=== PATIENT | female | born 1965 | race Caucasian/White ===

== ENCOUNTER 2017-03-06 22:15 | Emergency (ER) | payer MEDICARE, OTHER ==
[~2017-03-06] VITALS: Ht 167.6 cm; Wt 50.0 kg
[~2017-03-06 22:15] MED LIST: BENI20TA26 PO; FIORIC PO; FLUO0.05 TOP; GENT0.1C TOP; HYDR-3535 PO; MS C60TA4 PO; NEUR100C PO; PLAV75TA PO; POTA10IN2 PO; ROBA500T PO; SIMV20 PO; TRAZ150T75 PO; WELL150T PO; XANA2TAB PO; ZOFR8TAB PO; ZOLO50TA PO
[2017-03-06 22:20] VITALS: BP 140/77; PULSE 98; RESP 14; TEMP 98.5; O2SAT 94
--- NOTE | 2017-03-06 22:30 | PD ---
Physical Exam Date Seen by Provider: March 06, 2017 Time Seen by Provider: 22:26 Narrative 51 YOWF C/O HEAD INJURY S/P FALL IN SHOWER. ALSO R ELBOW PAIN. NO LOC. TOOK 30MG MORPHINE PRIOR TO ARRIVAL. ON PLAVIX. VSS AWAITING BED PLACEMENT Data Data Last Documented VS Vital Signs Date Time Temp Pulse Resp B/P Pulse Ox O2 Delivery O2 Flow Rate FiO2 03/06/17 22:20 98.5 98 14 140/77 94 Room Air [facility] Medical Record Reviewed: No Supervised Visit with ANNEMARIE: Bert Lopez March 06, 2017 22:30
--- NOTE | 2017-03-06 22:54 | PD ---
HPI Chief Complaint: Fall Time Seen by Provider: 22:35 Travel History International Travel<30 days: No Contact w/Intl Traveler<30days: No Traveled to known affect area: No History of Present Illness HPI This is a 51-year-old female with history of chronic pain, previous right shoulder injury and surgery, who presents after falling in the bathtub/hour. The patient states she was showering when she grabbed onto the shower reginaldo and it let loose. She states she fell striking her right elbow on the toilet. She also reports hitting her head. There is no reported loss of consciousness. She reports head and neck pain and right elbow pain. There are no other injuries or reported pain. The patient does take Plavix. She was initially seen in fast track and sent here for further evaluation secondary to her being on Plavix and her closed head injury. PFSH Past Medical History Hx Anticoagulant Therapy: Yes (PLAVIX) Arthritis: Yes Asthma: No Blood Disorders: No Anxiety: Yes Depression: Yes Heart Rhythm Problems: No Cancer: No Cardiovascular Problems: No High Cholesterol: Yes Chemotherapy: No Chest Pain: Yes (Current especially with deep breath) Congestive Heart Failure: No COPD: No Cerebrovascular Accident: Yes Diabetes: No Diminished Hearing: No Endocrine: No Gastrointestinal Disorders: Yes (Gastritis, and stomach discomfort supposedly caused by blood pressure med) Genitourinary: No Hypertension: Yes (On medication) Immune Disorder: Yes (Lupus, porphyria cuteanous tarda) Implanted Vascular Access Dvce: Yes Medical other: Yes (porphoriacutenous tarda) Musculoskeletal: Yes (Spine and arthritis problems) Neurologic: Yes (Central Tremors) Psychiatric: Yes (anxiety and depression) Reproductive: No Respiratory: No Integumentary: Yes (PORPHYRIA CUTANEATARDA METABOLIC PHOTO SENSATIVITY) Migraines: Yes Radiation Therapy: No Seizures: No Sickle Cell Disease: No Sleep Apnea: No Thyroid Disease: No ?: Not Past Surgical History Abdominal Surgery: Yes (INGUINAL HERNIA REPAIR) AICD: No Arteriovenous Shunt: No Body Medical Devices: shouldder plates and screws along with a hernia mesh Section: Yes Gynecologic Surgery: Yes (HYSTERECTOMY, ) Hysterectomy: Yes Insulin Pump: No Joint Replacement: No Pacemaker: No Other Surgery: Yes (R shoulder ORIF April 03) Social History Alcohol Use: No Tobacco Use: Yes (1/2 PPD) Substance Use: No Allergies-Medications (Allergen,Severity, Reaction): Coded Allergies: Bactrim (Verified Allergy, Severe, SKIN PROBLEMS, 03/06/17) Reported Meds & Prescriptions Reported Meds & Active Scripts Active Reported Trazodone (Trazodone HCl) 150 Mg Tab 150 Mg PO HS Simvastatin 20 Mg Tab 20 Mg PO DAILY Zoloft (Sertraline HCl) 50 Mg Tab 50 Mg PO DAILY Potassium Chloride ER (Potassium Chloride) 10 Meq Cap 10 Meq PO BID Zofran (Ondansetron HCl) 8 Mg Tab 8 Mg PO TID Morphine ER (Morphine Sulfate) 30 Mg Tab 30 Mg PO Q8H Robaxin (Methocarbamol) 500 Mg Tab 500 Mg PO TID Gabapentin 600 Mg Tab 600 Mg PO TID [Lidex] 1 Applic TP DIRECTED [Gentamicin Oint] 1 Applic .XX PRN Plavix (Clopidogrel Bisulfate) 75 Mg Tab 75 Mg PO DAILY Wellbutrin SR 12 HR (Bupropion HCl) 150 Mg Tab 350 Mg PO DAILY Xanax (Alprazolam) 2 Mg Tab 2 Mg PO Q6HR PRN Review of Systems Except as stated in HPI: all other systems reviewed are Neg General / Constitutional: No: Fever, Chills Eyes: No: Blurred Vision, Photophobia HENT: Positive: Headaches (posterior occiput), Neck Pain (bilateral paraspinous pain at C4 5 and 6 level.), No: Vertigo, Lightheadedness, Neck Stiffness Cardiovascular: No: Chest Pain or Discomfort, Palpitations Respiratory: No: Cough, Shortness of Breath Gastrointestinal: No: Nausea, Vomiting Neurologic: No: Weakness, Tremor, Headache, Change in Mentation Physical Exam Narrative GENERAL: Well-nourished, well-developed patient, in no acute respiratory distress. The patient was observed ambulating in the exam room prior to me entering.. SKIN: Focused skin assessment warm/dry. HEAD: Normocephalic. Patient has a cephalhematoma to the posterior occiput. There are no bony deformities. EYES: No injection or drainage. NECK: Supple, trachea midline. Bilateral paraspinous discomfort at the C4, C5's , C6 level. No posterior spinous process pain or deformity. CARDIOVASCULAR: Regular rate and rhythm without murmurs, gallops, or rubs. RESPIRATORY: Breath sounds equal bilaterally. No accessory muscle use. GASTROINTESTINAL: Abdomen soft, non-tender, nondistended. MUSCULOSKELETAL: No cyanosis, or edema. On examination of the patient's right elbow, she has a hematoma/bruise just inferior to the olecranon process. She has good range of motion. Her is no bony deformity. She does have previous scars in her right shoulder from previous surgery. She does have good range of motion in that shoulder and no pain from the fall. BACK: Nontender without obvious deformity. NEUROLOGICAL: Awake and alert. Cranial nerves II through XII intact. Motor grossly within normal limits. Five out of 5 muscle strength in all muscle groups. Normal speech. Data Data Last Documented VS Vital Signs Date Time Temp Pulse Resp B/P Pulse Ox O2 Delivery O2 Flow Rate FiO2 03/06/17 22:20 98.5 98 14 140/[address] Brain W/O Iv Contrast(Rout) (03/06/17 22:48) Ct Cerv Spine W/O Contrast (03/06/17 22:48) Elbow, Limited (Ap&Lat) (03/06/17 22:48) Shoulder, Limited(2vws) (03/06/17 23:03) MDM Medical Decision Making Medical Screen Exam Complete: Yes Emergency Medical Condition: Yes Differential Diagnosis Intracranial hemorrhage versus closed head injury versus concussion versus right elbow fracture Narrative Course 51-year-old female with a history of previous right shoulder injury, presents after falling in the shower. The patient struck her right elbow and head. She also has paraspinous tenderness in C4 through 6 distribution. There is no focal neurologic deficits at this time. CT of the brain shows no evidence of acute intracranial process. CT cervical spine shows degenerative changes with no acute process. Right elbow x-ray shows no acute process. Right shoulder shows no acute fracture or acute process. The patient be discharged. She has a medications for her chronic pain. She is instructed to avoid heavy lifting. She is also instructed to ice the areas that are sore. Diagnosis Primary Impression: Blunt head trauma Additional Impressions: Contusion of right elbow Cervical strain Contusion of right shoulder Additional Instructions: Ice all areas that are sore for 2-3 days. Anti-inflammatories for discomfort. Disposition: 01 DISCHARGE HOME Condition: Stable Matthew Ulloa MD March 06, 2017 22:53
[2017-03-06] MEDS ORDERED: PLAV75TA29 PO (23:00)
[2017-03-06] MEDS ORDERED: ROBA500T PO (23:00)
[2017-03-06] MEDS ORDERED: ZOFR8TAB PO (23:00)
[2017-03-06] MEDS ORDERED: BUPR150CR PO (23:00)
[2017-03-06] MEDS ORDERED: SIMV20TA PO (23:00)
[2017-03-06] MEDS ORDERED: POTA10CA PO (23:00)
[2017-03-06] MEDS ORDERED: LIDEX TP (23:00)
[2017-03-06] MEDS ORDERED: GENTAMICIN OINT (23:00)
[2017-03-06] MEDS ORDERED: TRAZ150T75 PO (23:00)
[2017-03-06] MEDS ORDERED: XANA2TAB2 PO (23:00)
[2017-03-06] MEDS ORDERED: ZOLO50TA PO (23:00)
[2017-03-06] MEDS ORDERED: MORP1TAB25 PO (23:00)
[2017-03-06] MEDS ORDERED: GABA600T PO (23:00)
--- NOTE | 2017-03-06 23:20 | RADRPT ---
EXAM DATE/TIME: 03/06/2017 22:51 [facility] COMPARISON: No previous studies available for comparison. INDICATIONS : Right elbow pain after fall MEDICAL HISTORY : None. SURGICAL HISTORY : None. ENCOUNTER: Initial ACUITY: 1 day PAIN SCORE: 6/10 LOCATION: Right elbow FINDINGS: Two view examination of the right elbow demonstrates no soft tissue swelling, joint effusion, fractur e or dislocation. Bony mineralization is normal. CONCLUSION: Unremarkable exam. Edmond Marin MD on March 06, 2017 at 23:18 Board Certified Radiologist. This report was verified electronically.
--- NOTE | 2017-03-06 23:33 | RADRPT ---
EXAM DATE/TIME: 03/06/2017 23:00 [facility] COMPARISON: No previous studies available for comparison. INDICATIONS : Trauma, fall. RADIATION DOSE: 29.10 CTDIvol (mGy) MEDICAL HISTORY : Hypertension. SURGICAL HISTORY : None. ENCOUNTER: Initial ACUITY: 1 day PAIN SCALE: 5/10 LOCATION: cranial TECHNIQUE: Multiple contiguous axial images were obtained of the head. Using automated exposure control and adj ustment of the mA and/or kV according to patient size, radiation dose was kept as low as reasonably a chievable to obtain optimal diagnostic quality images. FINDINGS: CEREBRUM: The ventricles are normal for age. No evidence of midline shift, mass lesion, hemorrhage or acute in farction. No extra-axial fluid collections are seen. POSTERIOR FOSSA: The cerebellum and brainstem are intact. The 4th ventricle is midline. The cerebellopontine angle i s unremarkable. EXTRACRANIAL: The visualized portion of the orbits is intact. Incidental finding of what appears to be a small oste rose marie in the left ethmoid sinus. Otherwise, the visualized paranasal sinuses are grossly clear. SKULL: The calvaria is intact. No evidence of skull fracture. CONCLUSION: 1. Unremarkable CT scan of the brain. 2. 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 Edmond Marin MD on March 06, 2017 at 23:29 Board Certified Radiologist. This report was verified electronically.
--- NOTE | 2017-03-06 23:37 | RADRPT ---
EXAM DATE/TIME: 03/06/2017 23:00 [facility] COMPARISON: No previous studies available for comparison. INDICATIONS : Trauma, fall. RADIATION DOSE: 19.27 CTDIvol (mGy) MEDICAL HISTORY : Hypertension. SURGICAL HISTORY : None. ENCOUNTER: Initial ACUITY: 1 day PAIN SCALE: 5/10 LOCATION: neck TECHNIQUE: Volumetric scanning of the cervical spine was performed. Multiplanar reconstructions in the sagittal, coronal and oblique axial planes were performed. Using automated exposure control and adjustment o f the mA and/or kV according to patient size, radiation dose was kept as low as reasonably achievable to obtain optimal diagnostic quality images. FINDINGS: VERTEBRAE: Normal vertebral body height. Primary bony degenerative changes, disc degeneration and disc space geetha rowing from C2-C7. No compression fractures are demonstrated. ALIGNMENT: No evidence of subluxation. C2-C3: The bony spinal canal is normal in size. No evidence of disc bulge or herniation. The neural forami na are bilaterally patent. C3-C4: Mild broad-based bulging disc osteophyte complex. Mild narrowing of the right neural foramina. The le ft neural foramina is patent. C4-C5: Mild broad-based bulging. There is narrowing of the right neural foramina due to osteophyte. The left neural foramen is patent. C5-C6: The bony spinal canal is normal in size. No evidence of disc bulge or herniation. The neural forami na are narrowed bilaterally from degenerative changes. C6-C7: The bony spinal canal is normal in size. No evidence of disc bulge or herniation. The neural forami na are bilaterally patent. C7-T1: The bony spinal canal is normal in size. No evidence of disc bulge or herniation. The neural forami na are bilaterally patent. CONCLUSION: 1. No acute bony fracture. 2. Primary bony degenerative changes, disc degeneration and disc space narrowing at multiple levels. Edmond Marin MD on March 06, 2017 at 23:31 Board Certified Radiologist. This report was verified electronically.
--- NOTE | 2017-03-06 23:47 | RADRPT ---
EXAM DATE/TIME: 03/06/2017 23:21 [facility] COMPARISON: No previous studies available for comparison. INDICATIONS : Right shoulder concerns post recent fall. MEDICAL HISTORY : Hypercholesterolemia. Hypertension Lupus. SURGICAL HISTORY : Inguinal hernia repair. Hysterectomy. section. ORIF Right shoulder ENCOUNTER: Initial ACUITY: 1 day PAIN SCORE: 5/10 LOCATION: Right shoulder FINDINGS: Two view examination of the right shoulder demonstrates no evidence of fracture or dislocation. There is evidence of previous internal fixation. The hardware is grossly intact. There is chronic pleural thickening along the right hemithorax. The glenohumeral and acromioclavicular joints are maintained. Bony mineralization is normal. CONCLUSION: No acute fracture or joint dislocation. Edmond Marin MD on March 06, 2017 at 23:44 Board Certified Radiologist. This report was verified electronically.
== END 2017-03-07 01:00 | disposition home or self-care (01) ==
LOC: NEPE 22:15
DX: S09.90XA Unspecified injury of head, initial encounter (principal); S50.01XA Contusion of right elbow, initial encounter; S16.1XXA Strain of muscle, fascia and tendon at neck level, initial encounter; S40.011A Contusion of right shoulder, initial encounter; W18.30XA Fall on same level, unspecified, initial encounter; Z79.01 Long term (current) use of anticoagulants; F32.9 Major depressive disorder, single episode, unspecified; E78.00 Pure hypercholesterolemia, unspecified; Z86.73 Personal history of transient ischemic attack (TIA), and cerebral infarction without residual deficits; I10 Essential (primary) hypertension
CPT/HCPCS: 70450; 72125; 73030; 73070

== ENCOUNTER 2017-05-08 14:53 | Inpatient (IN) | payer MEDICARE, OTHER ==
[2017-05-08] VITALS (9 sets, daily range): BP systolic 170–212; BP diastolic 82–108; PULSE 68–90; RESP 11–20; TEMP 98.2–98.9; O2SAT 98–100
[~2017-05-08] VITALS: Ht 167.6 cm; Wt 59.5 kg
[~2017-05-08 14:53] MED LIST changes: -BENI20TA26 PO; +BUPR150CR PO; -FIORIC PO; -FLUO0.05 TOP; +GABA600T PO; -GENT0.1C TOP; +GENTAMICIN OINT; -HYDR-3535 PO; +LIDEX TP; +MORP1TAB25 PO; -MS C60TA4 PO; -NEUR100C PO; -PLAV75TA PO; +PLAV75TA29 PO; +POTA10CA PO; -POTA10IN2 PO; -SIMV20 PO; +SIMV20TA PO; -WELL150T PO; -XANA2TAB PO; +XANA2TAB2 PO
[2017-05-08] MEDS ORDERED: SODIUM CHLOR 0.9% 1000 ML INJ 1,000 ML IV ONE (14:55)
--- NOTE | 2017-05-08 15:12 | PD ---
HPI Chief Complaint: stroke alert Time Seen by Provider: 14:55 Travel History International Travel<30 days: No Contact w/Intl Traveler<30days: No Traveled to known affect area: No History of Present Illness HPI 52-year-old female with previous history of a stroke, presents to the ER today brought in by EMS for a two-hour history of right facial droop, right sided weakness. She has had history of previous stroke. She currently also complains of a posterior headache. She denies any chest pains or any other issues. Modifying Factors: None Associated Signs & Symptoms: Headache, right sided weakness and right facial droop, stroke alert Risk Factors: Previous stroke PFSH Past Medical History Hx Anticoagulant Therapy: Yes (PLAVIX) Arthritis: Yes Asthma: No Blood Disorders: No Anxiety: Yes Depression: Yes Heart Rhythm Problems: No Cancer: No Cardiovascular Problems: No High Cholesterol: Yes Chemotherapy: No Chest Pain: Yes (Current especially with deep breath) Congestive Heart Failure: No COPD: No Cerebrovascular Accident: Yes Diabetes: No Diminished Hearing: No Endocrine: No Gastrointestinal Disorders: Yes (Gastritis, and stomach discomfort supposedly caused by blood pressure med) Genitourinary: No Hypertension: Yes (On medication) Immune Disorder: Yes (Lupus, porphyria cuteanous tarda) Implanted Vascular Access Dvce: Yes Musculoskeletal: Yes (Spine and arthritis problems) Neurologic: Yes (Central Tremors) Psychiatric: Yes (anxiety and depression) Reproductive: No Respiratory: No Integumentary: Yes (PORPHYRIA CUTANEATARDA METABOLIC PHOTO SENSATIVITY) Migraines: Yes Radiation Therapy: No Seizures: No Sickle Cell Disease: No Sleep Apnea: No Thyroid Disease: No Past Surgical History Abdominal Surgery: Yes (INGUINAL HERNIA REPAIR) AICD: No Arteriovenous Shunt: No Body Medical Devices: shouldder plates and screws along with a hernia mesh Section: Yes Gynecologic Surgery: Yes (HYSTERECTOMY, ) Hysterectomy: Yes Insulin Pump: No Joint Replacement: No Pacemaker: No Other Surgery: Yes (R shoulder ORIF April 03) Social History Alcohol Use: No Tobacco Use: Yes (/2 PPD) Substance Use: No Allergies-Medications (Allergen,Severity, Reaction): Coded Allergies: Bactrim (Verified Allergy, Severe, SKIN PROBLEMS, 03/06/17) Reported Meds & Prescriptions Reported Meds & Active Scripts Active Reported Trazodone (Trazodone HCl) 150 Mg Tab 150 Mg PO HS Simvastatin 20 Mg Tab 20 Mg PO DAILY Zoloft (Sertraline HCl) 50 Mg Tab 50 Mg PO DAILY Potassium Chloride ER (Potassium Chloride) 10 Meq Cap 10 Meq PO BID Zofran (Ondansetron HCl) 8 Mg Tab 8 Mg PO TID Morphine ER (Morphine Sulfate) 30 Mg Tab 30 Mg PO Q8H Robaxin (Methocarbamol) 500 Mg Tab 500 Mg PO TID Gabapentin 600 Mg Tab 600 Mg PO TID [Lidex] 1 Applic TP DIRECTED [Gentamicin Oint] 1 Applic .XX PRN Plavix (Clopidogrel Bisulfate) 75 Mg Tab 75 Mg PO DAILY Wellbutrin SR 12 HR (Bupropion HCl) 150 Mg Tab 350 Mg PO DAILY Xanax (Alprazolam) 2 Mg Tab 2 Mg PO Q6HR PRN Review of Systems Except as stated in HPI: all other systems reviewed are Neg Physical Exam Narrative GENERAL: Well-developed middle age white female patient currently in moderate distress. Awake and oriented 3. SKIN: Focused skin assessment warm/dry. HEAD: Atraumatic. Normocephalic. EYES: Pupils equal and round. No scleral icterus. No injection or drainage. ENT: No nasal bleeding or discharge. Mucous membranes pink and moist. NECK: Trachea midline. No JVD. CARDIOVASCULAR: Regular rate and rhythm. No murmur appreciated. RESPIRATORY: No accessory muscle use. Clear to auscultation. Breath sounds equal bilaterally. GASTROINTESTINAL: Abdomen soft, mild left upper quadrant tenderness without guarding or rebound, nondistended. Hepatic and splenic margins not palpable. MUSCULOSKELETAL: No obvious deformities. No clubbing. No cyanosis. No edema. NEUROLOGICAL: Awake and alert. Right facial droop, right sided weakness with right pronator drift. Normal speech. PSYCHIATRIC: Appropriate mood and affect; insight and judgment normal. Data Data Last Documented VS Vital Signs Date Time Temp Pulse Resp B/P Pulse Ox O2 Delivery O2 Flow Rate FiO2 05/08/17 15:43 75 20 173/82 05/08/17 14:53 98.2 98 05/08/17 14:45 Nasal Cannula 2.00 Orders Diet Npo (05/08/17 Dinner) Activity Bed Rest (05/08/17 ) Electrocardiogram (05/08/17 ) I-Stat Creatinine (05/08/17 14:55) I-Stat Profile (05/08/17 14:55) Prothrombin Time / Inr (Pt) (05/08/17 14:55) Act Partial Throm Time (Ptt) (05/08/17 14:55) Complete Blood Count With Diff (05/08/17 14:55) Fibrinogen (05/08/17 14:55) Creatine Kinase (Cpk) (05/08/17 14:55) Troponin I (05/08/17 14:55) Ua Includes Microscopic (05/08/17 14:55) Drug Screen, Random Urine (05/08/17 14:55) Type And Screen (05/08/17 14:55) Ct Brain W/O Iv Contrast(Rout) (05/08/17 ) Consult Neurology (05/08/17 ) Blood Glucose (05/08/17 14:55) Ecg Monitoring (05/08/17 14:55) Neuro Checks Q2HX12,Q4H (05/08/17 14:55) Nursing Bedside Swallow Assess .ONCE (05/08/17 14:55) Iv Access Insert/Monitor (05/08/17 14:55) NPO (05/08/17 14:55) Oximetry (05/08/17 14:55) Oxygen Administration (05/08/17 14:55) Sodium Chlor 0.9% 1000 Ml Inj (Ns 1000 M (05/08/17 14:55) Resp Oxygen Alexander C Titrat 1-4 L (05/08/17 14:55) Cath For Specimen (05/08/17 14:55) Cta Brain W Iv Contrast W 3d (05/08/17 14:55) Iodixanol 320 Inj (Rad Ct) (Visipaque 32 (05/08/17 15:19) Westergren Sedimentation Rate (05/08/17 15:23) Rapid Plasma Regin (Rpr) W Ttr (05/08/17 15:23) Anna Screen (05/08/17 15:23) Thyroid Stimulating Hormone (05/08/17 15:23) Free Thyroxine (T4) (05/08/17 15:23) Vitamin B1 (Thiamine) (05/08/17 15:23) Vitamin B12 (05/08/17 15:23) Methylmalonic Acid (Mma) (05/08/17 15:23) Mri Brain W&W/O Contrast (05/08/17:) Echo 2d Comp With Doppler (05/08/17:) Holter Monitor Recording (05/08/17) Surgical Services Tech / Telemetry CHARLES.Q8H (05/08/17) Sodium Chlor 0.9% 1000 Ml Inj (Ns 1000 M (05/08/17:) Lipid Profile (05/08/17) Drug Screen, Random Urine (05/08/17:) Scd&Teds Bilateral/Knee High CHARLES.QSHIFT (05/08/17) Beta Hcg (Quant/Titer) (05/08/17) Anti-Thrombin, Functional (05/08/17) Cardiolipin Abs Igg,Igm,Iga (05/08/17:) Protein C Activity (05/08/17) Protein S Activity (05/08/17:) Factor V (5) Mutation (Leiden) (05/08/17:) Prothrombin [id number] Mutation (05/08/17:) Lupus Anticoagulant Drvvt (05/08/17) Factor Viii (8) Activity Ref (05/08/17:) Folate, Serum (05/08/17:) ^ Call Pharmacy (05/08/17:) Nih Stroke Scale - Nihss .ONCE (05/08/17 15:32) Urinary Catheter Management CHARLES.Q8H (05/08/17:32) Urinary Catheter Insert/Apply (05/08/17:) Anticoagulant Alert (05/08/17:) ^ Post Infusion Restrictions (05/08/17:32) ^ Medication Alert (05/08/17:32) Vital Signs (Adult) .As directed (05/08/17:) Notify Dr: Blood Pressure (05/08/17:32) ^ Medication Alert (05/08/17:32) Alteplase Bolus (Activase Bolus) (05/08/17 15:45) Alteplase Drip (Activase Drip) (05/08/17 15:45) Sodium Chloride 0.9% Inj (Ns Inj) (05/08/17 15:45) Misc Nursing Information (05/08/17 15:45) Resp Oxygen Alexander C Titrat 1-4 L (05/08/17 ) Ct Brain W/O Iv Contrast(Rout) (05/09/17 ) Labetalol Inj (Trandate Inj) (05/08/17 15:45) Ct Abd/Pel W/O Iv Contrast (05/08/17 15:46) Lipase (05/08/17 15:46) Labs Laboratory Tests Test 05/08/17 14:50 White Blood Count 3.1 TH/MM3 Red Blood Count 3.45 MIL/MM3 Hemoglobin 7.5 GM/DL Bedside Hemoglobin 8.2 G/DL Hematocrit 24.4 % Bedside Hematocrit 24.0 % Mean Corpuscular Volume 70.7 FL Mean Corpuscular Hemoglobin 21.7 PG Mean Corpuscular Hemoglobin 30.6 % Concent Red Cell Distribution Width 19.3 % Platelet Count 347 TH/MM3 Mean Platelet Volume 7.5 FL Neutrophils (%) (Auto) 58.5 % Lymphocytes (%) (Auto) 34.2 % Monocytes (%) (Auto) 6.3 % Eosinophils (%) (Auto) 0.6 % Basophils (%) (Auto) 0.4 % Neutrophils # (Auto) 1.8 TH/MM3 Lymphocytes # (Auto) 1.1 TH/MM3 Monocytes # (Auto) 0.2 TH/MM3 Eosinophils # (Auto) 0.0 TH/MM3 Basophils # (Auto) 0.0 TH/MM3 CBC Comment DIFF FINAL Differential Comment Prothrombin Time 10.7 SEC Prothromb Time International 1.0 RATIO Ratio Activated Partial 28.7 SEC Thromboplast Time Fibrinogen 297 mg/dL Bedside Sodium 139 MMOL/L Bedside Potassium 4.2 MMOL/L Bedside Chloride 103 MMOL/L Bedside Blood Urea Nitrogen 8 MG/DL Bedside Creatinine 0.6 MG/DL Bedside Glucose 81 MG/DL Blood Type O POSITIVE Blood Bank Comment [facility] Medical Screen Exam Complete: Yes Emergency Medical Condition: Yes Medical Record Reviewed: Yes Differential Diagnosis Stroke versus ICH versus metabolic issues Narrative Course Initial CAT scan is negative. EKG did not show any signs of dysrhythmias. Case was seen by Dr. Culver in the ER and he would like TPA to be initiated. Patient has been having a 1 week history of left sided abdominal pain and it is probably tender. Hemoccult was done which was negative. CAT scan was also ordered to rule out other acute processes. Plan to admit for further treatment. We have discussed the issue with Dr. Culver and he would like the CAT scan to be done once TPA initiated due to timely need of TPA. Case is discussed with Dr. Figueroa for admission to ICU. It was noted that her hemoglobin is low and TPA was stopped momentarily. Case was discussed with Dr. Culver who after evaluating the fact that the patient is still having significant neurological symptoms, wants me to continue with TPA and to take the patient to CAT scan. Aggregate critical care time was 25 minutes. Time to perform other separately billable procedures was not included in the critical care time. My time did not include minutes spent treating any other patients simultaneously or on activities that did not directly contribute to the patient's treatment. The services I provided to this patient were to treat and/or prevent clinically significant deterioration that could result in: Stroke alert, ICH, I provided critical care services requiring my management, as noted below: Chart data review, documentation time, medication orders and management, vital sign assessments/reviewing monitor data, ordering and reviewing lab tests, ordering and interpreting/reviewing x-rays and diagnostic studies, care of the patient and discussion of the patient with the admitting physicians. Stroke Alert NIHSS NIH Stroke Scale Result: 7 NIHSS Time Completed: 15:30 HemaPrompt Point of Care Internal Pos. & Neg. Controls: Passed Fecal Specimen Occult Blood: Negative Diagnosis Diagnosis: Primary Impression: Stroke Admitting Physician Requests: Admit Milton Garcia MD May 08, 2017 15:12
[2017-05-08] MEDS ORDERED: IODIXANOL 320 MG/ML 50 ML VIAL (for Rad CT) IV ONE (15:19)
[2017-05-08] MEDS ORDERED: SODIUM CHLOR 0.9% 1000 ML INJ 1,000 ML IV SCH (15:23)
--- NOTE | 2017-05-08 15:27 | RADRPT ---
EXAM DATE/TIME: 05/08/2017 14:57 [facility] COMPARISON: CT BRAIN W/O CONTRAST, March 06, 2017, 23:00. INDICATIONS : Stroke alert, right sided weakness and facial droop. RADIATION DOSE: 56.23 CTDIvol (mGy) This report was called by Ilya ANAYA at 1515 MEDICAL HISTORY : Cerebrovascular disease. SURGICAL HISTORY : None. ENCOUNTER: Initial ACUITY: 1 day PAIN SCALE: 3/10 LOCATION: cranial TECHNIQUE: Multiple contiguous axial images were obtained of the head. Using automated exposure control and adj ustment of the mA and/or kV according to patient size, radiation dose was kept as low as reasonably a chievable to obtain optimal diagnostic quality images. DICOM format image data is available electro nically for review and comparison. FINDINGS: CEREBRUM: The ventricles are normal for age. No evidence of midline shift, mass lesion, hemorrhage or acute in farction. No extra-axial fluid collections are seen. POSTERIOR FOSSA: The cerebellum and brainstem are intact. The 4th ventricle is midline. The cerebellopontine angle i s unremarkable. EXTRACRANIAL: The visualized portion of the orbits is intact. SKULL: The calvaria is intact. No evidence of skull fracture. Small osteoma again noted in the left ethmoid sinus. CONCLUSION: 1. No acute intracranial abnormality. Nain Chen MD on May 08, 2017 at 15:22 Board Certified Radiologist. This report was verified electronically.
[2017-05-08 15:34] LABS: I-STAT POTASSIUM 4.2 MMOL/L (3.5-4.9)
[2017-05-08 15:44] LABS: AUTOMATED NEUTROPHIL # 1.8 TH/MM3 (1.8-7.7); BASOPHIL % 0.4 % (0.0-2.0); EOSINOPHIL % 0.6 % (0.0-4.0); HEMATOCRIT 24.4 % (35.0-46.0); HEMO FLAGS DIFF FINAL; LYMPH % 34.2 % (9.0-44.0); LYMPHOCYTE # 1.1 TH/MM3 (1.0-4.8); MEAN CELL VOLUME 70.7 FL (80.0-100.0); MEAN CORPUSCULAR HEMOGLOBIN 21.7 PG (27.0-34.0); MEAN CORPUSCULAR HGB CONC 30.6 % (32.0-36.0); MONO % 6.3 % (0.0-8.0); NEUT % 58.5 % (16.0-70.0); PLATELET COUNT 347 TH/MM3 (150-450); RED BLOOD COUNT 3.45 MIL/MM3 (4.00-5.30); RED CELL DISTRIBUTION WIDTH 19.3 % (11.6-17.2); WHITE BLOOD COUNT 3.1 TH/MM3 (4.0-11.0)
[2017-05-08] MEDS ORDERED: LABETALOL HCL 100 MG/20 ML VIAL IV PUSH ONE (15:45)
[2017-05-08] MEDS ORDERED: ALTEPLASE DRIP IV ONE (15:45)
[2017-05-08] MEDS ORDERED: ALTEPLASE BOLUS 9 MG/9 ML SYR IV ONE (15:45)
[2017-05-08] MEDS ORDERED: SODIUM CHLORIDE 0.9% 50 ML BAG IVF ONE (15:45)
[2017-05-08] MEDS ORDERED: MISCELLANEOUS NURSING INFORMATION XX PRN (15:45)
[2017-05-08 15:46] LABS: APTT (PATIENT) 28.7 SEC (24.3-30.1); PROTHROMBIN TIME - PATIENT 10.7 SEC (9.8-11.6)
--- NOTE | 2017-05-08 15:49 | RADRPT ---
EXAM DATE/TIME: 05/08/2017 15:12 [facility] COMPARISON: No previous studies available for comparison. INDICATIONS : Stroke alert, right sided weakness and facial droop. IV CONTRAST: 50 cc Visipaque (iodixanol) IV RADIATION DOSE: 13.46 CTDIvol (mGy) MEDICAL HISTORY : Cerebrovascular disease. Lupus. SURGICAL HISTORY : None. ENCOUNTER: Initial ACUITY: 1 day PAIN SCALE: 3/10 LOCATION: cranial TECHNIQUE: Volumetric scanning was performed using a multi-row detector CT scanner. The data was post processed with a variety of visualization algorithms including full volume maximum intensity projection, multi -planar sliding thin slab reformation, curved planar reformation, and surface rendering techniques. Using automated exposure control and adjustment of the mA and/or kV according to patient size, radiat ion dose was kept as low as reasonably achievable to obtain optimal diagnostic quality images. DICO M format image data is available electronically for review and comparison. FINDINGS: There is excellent visualization of the major intracranial arteries out to the second-order branch ve ssels. There is no evidence for aneurysm, vessel truncation or stenosis, and no evidence for vascula r malformation. CONCLUSION: 1. No evidence for large vessel occlusion or significant aneurysm/vascular malformation. Nain Chen MD on May 08, 2017 at 15:42 Board Certified Radiologist. This report was verified electronically.
--- NOTE | 2017-05-08 16:00 | MB ---
cc: DESIREE JIMENEZ DATE OF CONSULTATION 05/08/17 HISTORY OF PRESENT ILLNESS A 52-year-old woman with a history of hypertension, hypercholesterolemia, ME, a stroke in May 2014 with right-sided weakness for which she almost fully recovered though she does walk with a cane. She takes Plavix. She has porphyria. Says she has lupus although her last lupus tests were negative by Dr. Gutierres. She does not take any medicines due to porphyria. About 2 hours ago she had gotten up out of bed to go to the bathroom and noticed that she was weak on the right side, could not make it to the bathroom, peed on herself, noticed her speech was slurred and came in the hospital. She has not been seen by neurology here before. MEDICATIONS At home: 1. Xanax. 2. Wellbutrin 350 a day. 3. Plavix. 4. Gabapentin. 5. Robaxin. 6. Morphine ER 30 milligrams q. 8 hours. 7. Zofran. 8. Zoloft. 9. Simvastatin. 10. Trazodone. ALLERGIES ALLERGIC TO BACTRIM. PAST MEDICAL HISTORY As above including porphyria, migraines, tremors, anxiety, depression, spine pain, gastritis. REVIEW OF SYSTEMS She denied any chest pain at this time. PHYSICAL EXAMINATION VITAL SIGNS: I do not have the vitals right here in CAT scan. NECK: There are no carotid bruits. HEART: Regular rhythm. I did not detect a murmur. NEURO: The pupils are equal, visual story are full. Extraocular movements intact without nystagmus. Face no major asymmetry but her speech is slurred. I could not say that one side of her face is more droopy than the other. Tongue was midline. She is definitely weak on just the 1/5 in the right hand and her triceps on the right side is a 4-/5 with a positive right drift. Normal strength in the left upper and left lower extremity. Right lower extremity about 5-/5 weakness. At the right tibialis anterior she has some decreased range of motion there, about a 4+/5. Toes upgoing on the right, downgoing on the left. Pinprick is diminished in the right hand, otherwise, intact throughout. Speech is fluent. She is not aphasic but her speech is slurred. LABORATORY DATA CBC on 05/02/2016 showed a mild anemia only. Sed rate has been normal in the past. Hepatitis C has been positive, GIOVANNY was 1:320 in 2012. Her heparin-induced platelet antibody rapid was positive, although the TWIN was negative. UA has been negative in the past. Today's labs are pending but a creatinine in 2015, a year ago, was normal. LDL was 104 back then. Blood gases showed a pCO2 of 48 in 2006. She had a cervical spine MRI back in 2005. She had a cervical spine CT in February of this year was negative. She had a CAT scan of the brain in February of this year was normal. CT scan of brain today preliminary is negative. CTA of the neck and [place] also looks normal today. IMPRESSION It looks like she has had an acute infarct. The NIH stroke scale is 7. I would recommend TPA at this time. Will see if we get any of her labs back. MD KEVIN Abbott/JESSA /3:23 PM /3:44 PM
[2017-05-08 17:01] LABS: BETA HCG QUANT LESS THAN 1 MIU/ML (0-5); FREE T4 1.18 NG/DL (0.76-1.46); HDL CHOLESTEROL 23.7 MG/DL (40.0-60.0); LDL CHOLESTEROL 81 MG/DL (0-99)
[2017-05-08] MEDS ORDERED: MAGNESIUM SULFATE INJ 2 GM in SODIUM CHLORIDE 0.9% INJ 96 ML IV PRN (17:30)
[2017-05-08] MEDS ORDERED: POTASSIUM CHLORIDE 25 MEQ EFFERVESCENT TAB PO PRN (17:30)
[2017-05-08] MEDS ORDERED: BISACODYL 10 MG SUPP RECTAL PRN (17:30)
[2017-05-08] MEDS ORDERED: POTASSIUM PHOSPHATE MONOBASIC 500 MG TAB PO/TUBE PRN (17:30)
[2017-05-08] MEDS ORDERED: LACTULOSE SYRUP 20 GM/30 ML CUP PO PRN (17:30)
[2017-05-08] MEDS ORDERED: SODIUM PHOSPHATE INJ 30 MMOL in SODIUM CHLOR 0.9% 250 ML INJ 240 ML IV PRN (17:30)
[2017-05-08] MEDS ORDERED: SODIUM CHLORIDE 0.9% FLUSH 10 ML FLUSH IV FLUSH PRN (17:30)
[2017-05-08] MEDS ORDERED: MAGNESIUM HYDROXIDE SUSP 30 ML CUP PO PRN (17:30)
[2017-05-08] MEDS ORDERED: POTASSIUM CHLOR 40 MEQ PREMIX 100 ML IV PRN ×2 (17:30)
[2017-05-08] MEDS ORDERED: POTASSIUM PHOSPHATE INJ 30 MMOL in SODIUM CHLOR 0.9% 250 ML INJ 250 ML IV PRN (17:30)
[2017-05-08] MEDS ORDERED: MAGNESIUM OXIDE 400 MG TAB PO PRN (17:30)
[2017-05-08] MEDS ORDERED: MAGNESIUM SULFATE INJ 4 GM in SODIUM CHLORIDE 0.9% INJ 92 ML IV PRN (17:30)
[2017-05-08] MEDS ORDERED: CHLORHEXIDINE GLUCONATE 2 % 1 PACK (2 CLOTHS) TOP PRN (17:30)
[2017-05-08] MEDS ORDERED: POTASSIUM CHLOR 20 MEQ PREMIX 100 ML IV PRN ×2 (17:30)
[2017-05-08] MEDS ORDERED: SENNOSIDES 8.6 MG TAB PO PRN (17:30)
[2017-05-08] MEDS ORDERED: POTASSIUM PHOSPHATE MONOBASIC 500 MG TAB PO PRN (17:30)
[2017-05-08] MEDS ORDERED: MISCELLANEOUS NURSING INFORMATION XX SCH (17:30)
--- NOTE | 2017-05-08 17:35 | RADRPT ---
EXAM DATE/TIME: 05/08/2017 17:17 [facility] COMPARISON: No previous studies available for comparison. INDICATIONS : Drop in hemoglobin. Evaluate for internal bleeding. ORAL CONTRAST: No oral contrast ingested. RADIATION DOSE: 9.96 CTDIvol (mGy) MEDICAL HISTORY : Cerebrovascular disease. Hypertension. Lupus. SURGICAL HISTORY : Hysterectomy. ENCOUNTER: Initial ACUITY: 1 day PAIN SCALE: 4/10 LOCATION: abdomen TECHNIQUE: Volumetric scanning of the abdomen and pelvis was performed. Using automated exposure control and ad justment of the mA and/or kV according to patient size, radiation dose was kept as low as reasonably achievable to obtain optimal diagnostic quality images. DICOM format image data is available electro nically for review and comparison. FINDINGS: CT Abdomen: The liver, spleen, pancreas, kidneys, adrenals are unremarkable. There is no evidence for any appreciable pathological adenopathy, free fluid, or bowel obstruction. There is contrast in the renal collecting systems and bladder from the patient's earlier CT angiogram. Slight pericardial eff usion is seen with maximum thickness of 1.3 cm. Tiny bilateral pleural effusions are present with sli ght left lung base consolidation. CT pelvis: There is no evidence for mass, abscess formation, or any significant adenopathy within the pelvis. There is slight fluid in the cul-de-sac. CONCLUSION: 1. Tiny bilateral pleural effusions and left lung base consolidation. 2. Slight fluid in the cul-de-sac and small pericardial effusion. Andrew Phipps MD on May 08, 2017 at 17:28 Board Certified Radiologist. This report was verified electronically.
[2017-05-08] MEDS: SODIUM CHLOR 0.9% 1000 ML INJ 1,000 ML IV SCH (18:00)
--- NOTE | 2017-05-08 18:00 | HHI.HP ---
HPI Service Critical Care Medicine Primary Care Physician Unknown Admission Diagnosis stroke alert/TPA Diagnosis: Travel History International Travel<30 Days: No Contact w/Intl Traveler <30 Da: No Traveled to Known Affected Are: No History of Present Illness This is a 52-year-old female with a prior history of CVA that presented to the ED . It was reported that the patient had a two-hour history of right facial droop, right sided weakness and a headache. The patient also complained of dysarthria and incontinence. Her past medical history is significant for a previous CVA in 2003 with resultant only deficit of right-sided weakness requiring ambulation assistance utilizing a cane . A stroke alert was activated. The patient was seen by Dr. Culver NIH stroke score of 7. Imaging studies were performed -CT angiogram, and CT of the brain results and negative. TPA was initiated. Per ED physician, the patient had also complained of left lower quadrant pain, prior to initiation of tPA Hemoccult was obtained which resulted negative. Plans for CT of the abdomen and pelvis post TPA is pending. Critical care medicine was consulted. Upon my arrival the patient was receiving D5 half-normal saline, alert and oriented 3. No change from initial neurological exam, significant motor weakness right upper and lower extremity, with pronator drift right upper extremity, and complaints of a headache posterior, throbbing intermittently with a VAS score of 8/10. No complaints of photophobia, diplopia, visual story intact. Modifying Factors: None Associated Signs & Symptoms: Headache, right sided weakness and right facial droop, stroke alert Risk Factors: Previous stroke History PFSH Past Medical History Hx Anticoagulant Therapy: Yes (PLAVIX) Arthritis: Yes Asthma: No Blood Disorders: No Anxiety: Yes Depression: Yes Heart Rhythm Problems: No Cancer: No Cardiovascular Problems: No High Cholesterol: Yes Chemotherapy: No Chest Pain: Yes (Current especially with deep breath) Congestive Heart Failure: No COPD: No Cerebrovascular Accident: Yes Diabetes: No Diminished Hearing: No Endocrine: No Gastrointestinal Disorders: Yes (Gastritis, and stomach discomfort supposedly caused by blood pressure med) Genitourinary: No Hypertension: Yes (On medication) Immune Disorder: Yes (Lupus, porphyria cuteanous tarda) Implanted Vascular Access Dvce: Yes Musculoskeletal: Yes (Spine and arthritis problems) Neurologic: Yes (Central Tremors) Psychiatric: Yes (anxiety and depression) Reproductive: No Respiratory: No Integumentary: Yes (PORPHYRIA CUTANEATARDA METABOLIC PHOTO SENSATIVITY) Migraines: Yes Radiation Therapy: No Seizures: No Sickle Cell Disease: No Sleep Apnea: No Thyroid Disease: No Past Surgical History Abdominal Surgery: Yes (INGUINAL HERNIA REPAIR) AICD: No Arteriovenous Shunt: No Body Medical Devices: shouldder plates and screws along with a hernia mesh Section: Yes Gynecologic Surgery: Yes (HYSTERECTOMY, ) Hysterectomy: Yes Insulin Pump: No Joint Replacement: No Pacemaker: No Other Surgery: Yes (R shoulder ORIF April 03) Social History Alcohol Use: No Tobacco Use: Yes (10/27 PPD) Substance Use: No Allergies-Medications Allergies-Medications (Allergen,Severity, Reaction): Coded Allergies: Bactrim (Verified Allergy, Severe, SKIN PROBLEMS, 03/06/17) Reported Meds & Prescriptions Reported Meds & Active Scripts Active Reported Trazodone (Trazodone HCl) 150 Mg Tab 150 Mg PO HS Simvastatin 20 Mg Tab 20 Mg PO DAILY Zoloft (Sertraline HCl) 50 Mg Tab 50 Mg PO DAILY Potassium Chloride ER (Potassium Chloride) 10 Meq Cap 10 Meq PO BID Zofran (Ondansetron HCl) 8 Mg Tab 8 Mg PO TID Morphine ER (Morphine Sulfate) 30 Mg Tab 30 Mg PO Q8H Robaxin (Methocarbamol) 500 Mg Tab 500 Mg PO TID Gabapentin 600 Mg Tab 600 Mg PO TID [Lidex] 1 Applic TP DIRECTED [Gentamicin Oint] 1 Applic .XX PRN Plavix (Clopidogrel Bisulfate) 75 Mg Tab 75 Mg PO DAILY Wellbutrin SR 12 HR (Bupropion HCl) 150 Mg Tab 350 Mg PO DAILY Xanax (Alprazolam) 2 Mg Tab 2 Mg PO Q6HR PRN ROS Review of Systems Except as stated in HPI: all other systems reviewed are Neg Past Family Social History Allergies: Coded Allergies: Bactrim (Verified Allergy, Severe, SKIN PROBLEMS, 03/06/17) Reported Medications see MAR Active Ordered Medications see MAR Family History Unable to obtain at this time secondary to patient's clinical condition with severe headache . Social History Patient smokes a half a pack a day, denies EtOH and illicit drug use. Patient is . Physical Exam Vital Signs Vital Signs Date Time Temp Pulse Resp B/P Pulse Ox O2 Delivery O2 Flow Rate FiO2 05/08/17 16:23 78 20 173/83 05/08/17 16:02 Nasal Cannula 2 05/08/17 16:02 100 05/08/17 15:43 75 20 173/82 05/08/17 15:15 76 20 202/108 05/08/17 14:53 98.2 90 20 212/108 98 05/08/17 14:45 100 Nasal Cannula 2.00 Physical Exam BP 176/84 Pulse 70 O2 sat 100% on 2 L GENERAL: Thin cooperative female patient in moderate distress with complaints of headache SKIN: Warm and dry. HEAD: Atraumatic. Normocephalic. EYES: Pupils equal and round, 3 mm and brisk. No scleral icterus. No injection or drainage. ENT: No nasal bleeding or discharge. Mucous membranes pink and moist. Nasal cannula NECK: Trachea midline. No JVD. CARDIOVASCULAR: Normal rate, regular rhythm. Telemetry normal sinus RESPIRATORY: No accessory muscle use. Clear to auscultation. Breath sounds equal bilaterally. GASTROINTESTINAL: Abdomen soft, non-tender, nondistended. No guarding. MUSCULOSKELETAL: Extremities without clubbing, cyanosis, or edema. No obvious deformities. NEUROLOGICAL: Awake and alert. RASS 0. No gross focal/sensory deficits. Follows commands in all 4 extremities. Right upper extremity motor strength 1/5, right lower extremity motor strength 3/5. Left upper and lower extremities 5/5, slight right facial droop. Laboratory Laboratory Tests Test 05/08/17 14:50 White Blood Count 3.1 Red Blood Count 3.45 Hemoglobin 7.5 Bedside Hemoglobin 8.2 Hematocrit 24.4 Bedside Hematocrit 24.0 Mean Corpuscular Volume 70.7 Mean Corpuscular Hemoglobin 21.7 Mean Corpuscular Hemoglobin 30.6 Concent Red Cell Distribution Width 19.3 Platelet Count 347 Mean Platelet Volume 7.5 Neutrophils (%) (Auto) 58.5 Lymphocytes (%) (Auto) 34.2 Monocytes (%) (Auto) 6.3 Eosinophils (%) (Auto) 0.6 Basophils (%) (Auto) 0.4 Neutrophils # (Auto) 1.8 Lymphocytes # (Auto) 1.1 Monocytes # (Auto) 0.2 Eosinophils # (Auto) 0.0 Basophils # (Auto) 0.0 CBC Comment DIFF FINAL Differential Comment Erythrocyte Sedimentation Rate 43 Prothrombin Time 10.7 Prothromb Time International 1.0 Ratio Activated Partial 28.7 Thromboplast Time Fibrinogen 297 Bedside Sodium 139 Bedside Potassium 4.2 Bedside Chloride 103 Bedside Blood Urea Nitrogen 8 Bedside Creatinine 0.6 Bedside Glucose 81 Total Creatine Kinase 24 Troponin I 0.13 Triglycerides Level 100 Cholesterol Level 125 LDL Cholesterol 81 HDL Cholesterol 23.7 Cholesterol/HDL Ratio 5.27 Vitamin B12 Level 174 Folate 10.4 Free Thyroxine 1.18 Thyroid Stimulating Hormone 2.130 3rd Gen Human Chorionic Gonadotropin, LESS THAN 1 Quant Blood Type O POSITIVE Antibody Screen POSITIVE Blood Bank Comment Result Diagram: 05/08/17 1450 Imaging Last Impressions Head CTA 05/08/17 1455 Signed Impressions: Service Date/Time: Monday, May 08, 2017 15:12 - CONCLUSION: 1. No evidence for large vessel occlusion or significant aneurysm/vascular malformation. Nain Chen MD Head CT 05/08/17 0000 Signed Impressions: Service Date/Time: Monday, May 08, 2017 14:57 - CONCLUSION: 1. No acute intracranial abnormality. Nain Chen MD Septic Shock Reassessment Heart: Regular rate and rhythm Lungs: Clear Skin: Warm Peripheral Pulses: Bounding Right Radial Bounding Left Radial Bounding Right Dorsalis Pedis Bounding Left Dorsalis Pedis Capillary Refill: Brisk Assessment and Plan Assessment and Plan Assessment 1. Acute CVA 2. History of CVA (2003) 3. Hypertension 4. Hypercholesterolemia 5. Hepatitis C 6. Porphyria cutanea tarda 7. Anxiety disorder 8. Depression 9. Chronic back pain syndrome 10. History of migraine 11. History of gastritis 12. Incontinence 2/2 CVA 13. Tobacco abuse Plan Neurologic: -05/08 Status post TPA -Neurology following-Dr. Culver -Repeat CT in a.m. defer to neurology recommendations -Continue post TPA protocol in ICU -Neurochecks per ICU protocol -Avoid sedative type medications -Tylenol 650 mg every 6 hours when necessary for pain -Will resume Gabapentin, Morphine extended release, Zoloft, Xanax and Wellbutrin , post TPA protocol( post 24-hour) when clinically indicated Respiratory: -Maintain O2 sat greater than 92%, O2 at 2 L nasal cannula -Patient counseled on smoking cessation -Consider nicotine patch in a.m. Cardiovascular: -Maintain MAP > 65 mmHG -Resume home medications-Plavix and simvastatin when patient is able to resume by mouth diet Renal: -Maintain Ruelas catheter at this time secondary to urinary incontinence -- Strict I/Os FEN/GI: -Maintain NPO status at this time -Protonix GI prophylaxis -Zofran for nausea -Bowel regimen - F/U CT abdomen and pelvis Heme/ID: -Obtain cultures if clinically indicated Endocrine: Glucose monitoring every 6 hours. Low dose regimen -- SSI Prophylaxis: GI Prophylaxis Protonix DVT Prophylaxis -- SCDs No pharmacological prophylaxis at this time in the setting of TPA administration Lines: PIVs 2. Central line if indicated Dispo: Level 3- Code Status Full Discussed Condition With and ed RN at bedside Cherrie More MD May 08, 2017 18:00
[2017-05-08 18:12] LABS: BLOOD, URINE MOD (NEG); GLUCOSE,URINE NEG (NEG); KETONE, URINE NEG (NEG); NITRITE,URINE NEG (NEG); PH, URINE 6.5 (5.0-8.5); URINE COLOR YELLOW (YELLW/STRAW)
[2017-05-08 18:33] LABS: AMPHETAMINE, URINE NEG (NEG); BARBITURATES, URINE NEG (NEG); COCAINE, URINE NEG (NEG)
--- NOTE | 2017-05-08 18:38 | RADRPT ---
EXAM DATE/TIME: 05/08/2017 15:03 [facility] COMPARISON: No previous studies available for comparison. INDICATIONS : Stroke alert, right sided weakness along with facial droop. IV CONTRAST: 50 cc Visipaque (iodixanol) IV ; Cumulative dose for multiple exams. RADIATION DOSE: 13.46 CTDIvol (mGy) ; Combined studies MEDICAL HISTORY : Cerebrovascular disease. Hypertension. Lupus. SURGICAL HISTORY : Hysterectomy. ENCOUNTER: Initial ACUITY: 1 day PAIN SCALE: 3/10 LOCATION: neck Elevated flow velocities and ICA/CCA ratios have been found to correlate with increased degrees of vessel stenosis, calculated as percentage of diameter relative to a normal segment of distal ICA/CCA. TECHNIQUE: Volumetric scanning was performed using a multirow detector CT scanner. The data was post processed with a variety of visualization algorithms including full-volume maximum intensity projection, multip lanar sliding thin-slab reformation, curved-planar reformation, and surface-rendering techniques. Us ing automated exposure control and adjustment of the mA and/or kV according to patient size, radiatio n dose was kept as low as reasonably achievable to obtain optimal diagnostic quality images. DICOM f ormat image data is available electronically for review and comparison. FINDINGS: AORTIC ARCH: There is a three-vessel origin of the great vessels from the aorta. No evidence of ostial narrowing. RIGHT CAROTID: The common carotid artery is intact. The carotid bulb has a normal configuration without ulceration o r narrowing. The internal carotid artery lumen is smooth without stenosis. The external carotid lynda ry is intact. LEFT CAROTID: The common carotid artery is intact. The carotid bulb has a normal configuration without ulceration or narrowing. Mild short segment atherosclerotic plaque seen along the posterior margin of the left i nternal carotid artery proximally.. The external carotid artery is intact. VERTEBRALS: The vertebral arteries have a symmetric diameter. No stenotic lesions are seen. CONCLUSION: No acute abnormality demonstrated. There is no stenosis. Very mild carotid atherosclerosis on the lef t. Padilla Sahni MD on May 08, 2017 at 18:34 Board Certified Radiologist. This report was verified electronically.
[2017-05-08] MEDS: DOCUSATE SODIUM 50 MG/SENNA 8.6 MG TAB PO SCH (21:00)
[2017-05-08] MEDS: SODIUM CHLORIDE 0.9% FLUSH 10 ML FLUSH IV FLUSH SCH (21:00)
[2017-05-08] MEDS ORDERED: GADODIAMIDE PF 287 MG/ML 10 ML VIAL (for RAD MRI) IV ONE (21:05)
--- NOTE | 2017-05-08 21:26 | RADRPT ---
EXAM DATE/TIME: 05/08/2017 20:47 This report includes an Addendum and supersedes previous reports for this exam. [facility] COMPARISON: CTA BRAIN W 3D RECON, May 08, 2017, 15:12. CTA CAROTID ARTERIES W 3D RECON, May 08, 2017, 15:03. CT BRAIN W/O CONTRAST, May 08, 2017, 14:57. INDICATIONS : CVA. CONTRAST: 10 cc Omniscan (gadodiamide) IV MEDICAL HISTORY : Lupus. Hypertension. Stroke SURGICAL HISTORY : Hysterectomy. Right shoulder. Hernia repair. ENCOUNTER: Initial ACUITY: 1 day PAIN SCORE: 0/10 LOCATION: cranial TECHNIQUE: Multiplanar, multisequence MRI of the brain was performed both prior to and following the administrat ion of paramagnetic contrast. FINDINGS: CEREBRUM: The ventricles are normal for age. No evidence of midline shift, mass lesion, hemorrhage or acute in farction. No extraaxial fluid collections are seen. The pituitary gland and suprasellar cistern are normal in configuration. WHITE MATTER: A few scattered subcentimeter foci of flair signal normality seen in the periventricular white matter of both cerebral hemispheres. POSTERIOR FOSSA: The cerebellum and brainstem are intact. The 4th ventricle is midline. The cerebellopontine angle is unremarkable. The cerebellar tonsils are normal in position. DIFFUSION IMAGING: There is a 6 x 18 mm focus of restricted diffusion in the right basal ganglia. EXTRACRANIAL: The visualized portions of the orbits and paranasal sinuses are unremarkable. POST-CONTRAST: No abnormal areas of parenchymal or dural enhancement. No evidence of blood-brain barrier breakdown. CONCLUSION: Small acute right basal ganglia infarct. Mild, chronic white matter changes. Padilla Sahni MD on May 08, 2017 at 21:23 Board Certified Radiologist. This report was verified electronically. ADDENDUM: Restricted diffusion is also evident within the left side of the randy consistent with a pontine infar ct. There is no associated hemorrhage or significant mass effect. Saulo Keller MD on May 09, 2017 at 13:27 Board Certified Radiologist. This report was verified electronically.
[2017-05-08] MEDS: hydrALAZINE HCL 20 MG/ML VIAL IV PUSH PRN (22:50)
[2017-05-08] MEDS: MORPHINE SULFATE 30 MG CONTROLLED RELEASE TAB PO SCH (23:08)
[2017-05-08] MEDS: ALPRAZolam 1 MG TAB PO PRN (23:12)
[2017-05-09] VITALS (14 sets, daily range): BP systolic 136–188; BP diastolic 67–89; PULSE 83–118; RESP 16–37; TEMP 98.9–99.4; O2SAT 98–100
[2017-05-09] MEDS: hydrALAZINE HCL 20 MG/ML VIAL IV PUSH PRN ×3 (02:31→20:22)
[2017-05-09] MEDS: SODIUM CHLOR 0.9% 1000 ML INJ 1,000 ML IV SCH ×2 (02:32→18:24)
[2017-05-09] MEDS: CHLORHEXIDINE GLUCONATE 2 % 1 PACK (2 CLOTHS) TOP SCH (03:21)
[2017-05-09] MEDS: MORPHINE SULFATE 30 MG CONTROLLED RELEASE TAB PO SCH (05:09)
[2017-05-09] MEDS: ALPRAZolam 1 MG TAB PO PRN (05:10)
[2017-05-09 05:26] LABS: AUTOMATED NEUTROPHIL # 3.7 TH/MM3 (1.8-7.7); BASOPHIL % 0.3 % (0.0-2.0); EOSINOPHIL % 0.2 % (0.0-4.0); HEMATOCRIT 26.5 % (35.0-46.0); HEMO FLAGS DIFF FINAL; LYMPH % 22.2 % (9.0-44.0); LYMPHOCYTE # 1.1 TH/MM3 (1.0-4.8); MEAN CELL VOLUME 71.3 FL (80.0-100.0); MEAN CORPUSCULAR HEMOGLOBIN 21.8 PG (27.0-34.0); MEAN CORPUSCULAR HGB CONC 30.6 % (32.0-36.0); MONO % 6.3 % (0.0-8.0); PLATELET COUNT 384 TH/MM3 (150-450); RED BLOOD COUNT 3.71 MIL/MM3 (4.00-5.30); RED CELL DISTRIBUTION WIDTH 18.9 % (11.6-17.2); WHITE BLOOD COUNT 5.2 TH/MM3 (4.0-11.0)
--- NOTE | 2017-05-09 05:32 | RADRPT ---
EXAM DATE/TIME: 05/09/2017 04:57 [facility] COMPARISON: MRI BRAIN W & W/O CONTRAST, May 08, 2017, 20:47. CT BRAIN W/O CONTRAST, May 08, 2017, 14:57. INDICATIONS : Follow up stroke. RADIATION DOSE: 30.10 CTDIvol (mGy) ; Patient motion MEDICAL HISTORY : Cerebrovascular disease. SURGICAL HISTORY : None. ENCOUNTER: Subsequent ACUITY: 1 day PAIN SCALE: 0/10 LOCATION: cranial TECHNIQUE: Multiple contiguous axial images were obtained of the head. Using automated exposure control and adj ustment of the mA and/or kV according to patient size, radiation dose was kept as low as reasonably a chievable to obtain optimal diagnostic quality images. DICOM format image data is available electro nically for review and comparison. FINDINGS: There is subtle low-density in the right basal ganglia consistent with the area of acute infarction. No signs of intracranial hemorrhage, mass or mass effect. There are no fractures. CONCLUSION: 1. Small amount of cytotoxic edema in the right basal ganglia consistent with focus of acute infarcti on. Brian Lemon MD on May 09, 2017 at 5:30 Board Certified Radiologist. This report was verified electronically.
[2017-05-09 05:51] LABS: BICARBONATE 24.6 MEQ/L (21.0-32.0); MAGNESIUM 1.8 MG/DL (1.5-2.5); POTASSIUM 3.9 MEQ/L (3.5-5.1)
[2017-05-09] MEDS ORDERED: buPROPion HCL 150 MG SUSTAINED RELEASE TAB PO SCH (09:00)
[2017-05-09] MEDS ORDERED: METHOCARBAMOL 500 MG TAB PO SCH (09:00)
[2017-05-09] MEDS ORDERED: GABAPENTIN 300 MG CAP PO SCH (09:00)
[2017-05-09] MEDS: ONDANSETRON ODT 4 MG TAB PO SCH ×3 (09:00→18:07)
[2017-05-09] MEDS: SODIUM CHLORIDE 0.9% FLUSH 10 ML FLUSH IV FLUSH SCH ×2 (09:00→20:22)
[2017-05-09] MEDS ORDERED: SERTRALINE HCL 50 MG TAB PO SCH (09:00)
[2017-05-09] MEDS: DOCUSATE SODIUM 50 MG/SENNA 8.6 MG TAB PO SCH ×2 (09:00→20:22)
[2017-05-09] MEDS: PANTOPRAZOLE SODIUM 40 MG VIAL IV SCH (09:25)
--- NOTE | 2017-05-09 12:28 | HHI.PR ---
Subjective Remarks sr sp tpa Objective Vital Signs Date Time Temp Pulse Resp B/P Pulse Ox O2 Delivery O2 Flow Rate FiO2 05/09/17 10:00 85 05/09/17 08:00 89 05/09/17 08:00 99.4 91 19 136/72 100 05/09/17 07:00 98 05/09/17 07:00 100 Nasal Cannula 2.00 05/09/17 06:00 96 05/09/17 04:00 98.9 92 16 145/67 99 05/09/17 04:00 92 05/09/17 02:00 83 05/09/17 00:08 23 05/09/17 00:00 99.3 100 21 184/81 100 05/09/17 00:00 100 05/08/17 22:00 72 05/08/17 20:00 68 05/08/17 20:00 98.9 68 11 170/83 100 05/08/17 19:00 100 Nasal Cannula 2.00 05/08/17 18:00 72 05/08/17 16:23 78 20 173/83 05/08/17 16:02 Nasal Cannula 2 05/08/17 16:02 100 05/08/17 15:43 75 20 173/82 05/08/17 15:15 76 20 202/108 05/08/17 14:53 98.2 90 20 212/108 98 05/08/17 14:45 100 Nasal Cannula 2.00 I/O 05/08/17 05/08/17 05/08/17 05/09/17 05/09/17 05/09/17 07:00 15:00 23:00 07:00 15:00 23:00 Intake Total 465 ml 619 ml Output Total 525 ml 1050 ml Balance -60 ml -431 ml Intake Oral 0 ml 100 ml IV Total 465 ml 519 ml Output Urine Total 525 ml 1050 ml # Bowel Movements 0 0 Result Diagram: 05/09/1744605/09/17446 Objective Remarks vff major r droop now 1-2/5 rue and rle moves left well Assessment and Plan Assessment and Plan imp cta negx2 mri acute r bg infarct and left pontine cva on [plavix ldl ok b12 shot recheck trop fu echo blood cx start coumadin/sq hep hypercoag lab pend i dw med team Rickie Culver MD May 09, 2017 12:28
--- NOTE | 2017-05-09 12:39 | EKG ---
Date Performed: 05/08/2017 Time Performed: 15:27:44 PTAGE: 52 years EKG: Sinus rhythm POSSIBLE LEFT ATRIAL ENLARGEMENT Compared to prior tracing no significant change BORDERLINE ECG PREVIOUS TRACING : 05/02/2016 21.42 DOCTOR: Chago Galvez Interpretating Date/Time 05/09/2017 12:38:04
--- NOTE | 2017-05-09 13:57 | HHI.CCPN ---
Subjective Remarks/Hospital Course This is a 52-year-old female with a prior history of CVA that presented to the ED . It was reported that the patient had a two-hour history of right facial droop, right sided weakness and a headache. The patient also complained of dysarthria and incontinence. Her past medical history is significant for a previous CVA in 2003 with resultant only deficit of right-sided weakness requiring ambulation assistance utilizing a cane . A stroke alert was activated. The patient was seen by Dr. Culver NIH stroke score of 7. Imaging studies were performed -CT angiogram, and CT of the brain results and negative. TPA was initiated. Per ED physician, the patient had also complained of left lower quadrant pain, prior to initiation of tPA Hemoccult was obtained which resulted negative. Plans for CT of the abdomen and pelvis post TPA is pending. Critical care medicine was consulted. Upon my arrival the patient was receiving D5 half-normal saline, alert and oriented 3. No change from initial neurological exam, significant motor weakness right upper and lower extremity, with pronator drift right upper extremity, and complaints of a headache posterior, throbbing intermittently with a VAS score of 8/10. No complaints of photophobia, diplopia, visual story intact. Subjective: 05/09: Afebrile. Overnight and early this am, the patient received sedative type medications ( home medications) to include extended release morphine, Neurontin, Zoloft, and Wellbutrin. Initial neurological assessment, this a.m. difficult to obtain secondary to lethargy. Repeat assessment this afternoon show significant deficit right upper and lower extremity. Repeat CT this a.m. revealed right basal ganglion infarct. Hypercoagulable studies are pending. The patient does have a possible medical history of lupus, antiphospholipid antibodies are pending. The patient was noted initially to have a slightly elevated troponin. Repeat troponin levels are ordered. TTE has been ordered, cardiology consulted. Plans to initiate Coumadin dosing this evening. Formal speech evaluation is pending. Objective Vital Signs Date Time Temp Pulse Resp B/P Pulse Ox O2 Delivery O2 Flow Rate FiO2 05/09/17 12:00 86 05/09/17 12:00 99.0 20 182/84 99 05/09/17 07:00 Nasal Cannula 2.00 Intake and Output 7/14/17 7/14/17 7/14/17 07:59 15:59 23:59 Intake Total 465 ml Output Total 525 ml Balance -60 ml Result Diagram: 05/09/17 0447 05/09/17 0447 Imaging Last Impressions Head CT 05/09/17 0000 Signed Impressions: Service Date/Time: Tuesday, May 09, 2017 04:57 - CONCLUSION: 1. Small amount of cytotoxic edema in the right basal ganglia consistent with focus of acute infarction. Brian Lemon MD Abdomen/Pelvis CT 05/08/17 1546 Signed Impressions: Service Date/Time: Monday, May 08, 2017 17:17 - CONCLUSION: 1. Tiny bilateral pleural effusions and left lung base consolidation. 2. Slight fluid in the cul-de-sac and small pericardial effusion. Andrew Phipps MD Brain MRI 05/08/17 1523 Signed Impressions: Service Date/Time: Monday, May 08, 2017 20:47 - CONCLUSION: Small acute right basal ganglia infarct. Mild, chronic white matter changes. Padilla Sahni MD ADDENDUM: Restricted diffusion is also evident within the left side of the randy consistent with a pontine infarct. There is no associated hemorrhage or significant mass effect. Saulo Keller MD Head CTA 05/08/17 1455 Signed Impressions: Service Date/Time: Monday, May 08, 2017 15:12 - CONCLUSION: 1. No evidence for large vessel occlusion or significant aneurysm/vascular malformation. Nain Chen MD Neck CTA 05/08/17 0000 Signed Impressions: Service Date/Time: Monday, May 08, 2017 15:03 - CONCLUSION: No acute abnormality demonstrated. There is no stenosis. Very mild carotid atherosclerosis on the left. Padilla Sahni MD Last Impressions Head CTA 05/08/17 1455 Signed Impressions: Service Date/Time: Monday, May 08, 2017 15:12 - CONCLUSION: 1. No evidence for large vessel occlusion or significant aneurysm/vascular malformation. Nain Chen MD Head CT 05/08/17 0000 Signed Impressions: Service Date/Time: Monday, May 08, 2017 14:57 - CONCLUSION: 1. No acute intracranial abnormality. Nani Chen MD Objective Remarks BP 176/84 Pulse 70 O2 sat 100% on 2 L GENERAL: Thin female patient, lethargic, but arousable. Flaccid right upper and lower extremity SKIN: Warm and dry. HEAD: Atraumatic. Normocephalic. EYES: Pupils equal and round, 3 mm and brisk. No scleral icterus. No injection or drainage. ENT: No nasal bleeding or discharge. Mucous membranes pink and moist. Nasal cannula NECK: Trachea midline. No JVD. CARDIOVASCULAR: Normal rate, regular rhythm. Telemetry normal sinus RESPIRATORY: No accessory muscle use. Clear to auscultation. Breath sounds equal bilaterally. GASTROINTESTINAL: Abdomen soft, non-tender, nondistended. No guarding. MUSCULOSKELETAL: Extremities without clubbing, cyanosis, or edema. No obvious deformities. NEUROLOGICAL: Noted lethargy, but arousable. Right upper extremity motor strength 0/5, right lower extremity 1/5, significant right facial droop Urinary Catheter: Yes Ruelas insert reason: Measure Accurate Output A/P Assessment and Plan Assessment 1. Acute CVA 2. History of CVA (2003) 3. Hypertension 4. Hypercholesterolemia 5. Hepatitis C 6. Porphyria cutanea tarda 7. Anxiety disorder 8. Depression 9. Chronic back pain syndrome 10. History of migraine 11. History of gastritis 12. Incontinence 2/2 CVA 13. Tobacco abuse 14 Lupus??? Plan Neurologic: -05/08 Status post TPA -Neurology following-Dr. Culver -05/[address] -acute infarct right basal ganglia, left pontine CVA -Maintain head of bed flat/supine until 05/10 -Neurochecks per ICU protocol -Avoid sedative type medications-Zoloft, Neurontin, Wellbutrin ,Morphine extended release and Neurontin held -Tylenol 650 mg every 6 hours when necessary for pain -Will resume Gabapentin, Morphine extended release, Zoloft, Xanax and Wellbutrin , post TPA protocol( post 24-hour) when clinically indicated -PT/OT evaluation and treat -Speech therapy formal swallow, cognitive evaluation -F/U repeat CT brain at 1600 Respiratory: -Maintain O2 sat greater than 92%, O2 at 2 L nasal cannula -Patient counseled on smoking cessation Cardiovascular: -Maintain MAP > 65 mmHG -Resume home medications-Plavix and simvastatin when patient is able to resume by mouth diet -Begin Coumadin 5 mg at 1800, her neurology recommendations -Follow-up hypercoagulable studies -Troponin elevated, obtain serial troponin levels -05/09 Echo ordered, follow-up results Renal: -Maintain Ruelas catheter at this time secondary to urinary incontinence -- Strict I/Os FEN/GI: -Maintain NPO status at this time -Formal swallow -Protonix GI prophylaxis -Zofran for nausea -Bowel regimen - F/U CT abdomen and pelvis Heme/ID: -ESR -43 - Endocrine: Glucose monitoring every 6 hours. Low dose regimen, will discontinue @ 48 hours if no elevations noted post TPA -- SSI Prophylaxis: GI Prophylaxis Protonix DVT Prophylaxis -- SCDs, Heparin 5000 SQ twice a day, to begin 05/09, okayed by neurology Lines: PIVs 2. Central line if indicated Dispo: Discussed with Dr. Culver, [employer] at bedside Level 3 Physician Cherrie Gentile MD May 09, 2017 13:57
[2017-05-09] MEDS ORDERED: SODIUM CHLORID 0.9% 500 ML INJ 500 ML IV ONE (14:45)
--- NOTE | 2017-05-09 17:23 | RADRPT ---
EXAM DATE/TIME: 05/09/2017 16:47 [facility] COMPARISON: MRI BRAIN W & W/O CONTRAST, May 08, 2017, 20:47. CT BRAIN W/O CONTRAST, May 09, 2017, 4:57. INDICATIONS : Post TPA evaluation. RADIATION DOSE: 43.90 CTDIvol (mGy) MEDICAL HISTORY : Lupus. Stroke Cardiovascular disease SURGICAL HISTORY : None. ENCOUNTER: Subsequent ACUITY: 1 day PAIN SCALE: 0/10 LOCATION: cranial TECHNIQUE: Multiple contiguous axial images were obtained of the head. Using automated exposure control and adj ustment of the mA and/or kV according to patient size, radiation dose was kept as low as reasonably a chievable to obtain optimal diagnostic quality images. DICOM format image data is available electro nically for review and comparison. FINDINGS: CEREBRUM: There is a subtle area of decreased density involving the right basal ganglia approaching the anterio r limb of the internal capsule. This correlates to the area of her strictured diffusion on the prior MRI. No mass effect. No hemorrhage. The ventricles are normal for age. No evidence of midline shift, mass lesion, hemorrhage or acute infarction. No extra-axial fluid collections are seen. POSTERIOR FOSSA: The cerebellum and brainstem are intact. The 4th ventricle is midline. The cerebellopontine angle i s unremarkable. EXTRACRANIAL: The visualized portion of the orbits is intact. SKULL: The calvaria is intact. No evidence of skull fracture. A small osteoma seen involving the ethmoid ai r cells on the left. CONCLUSION: 1. No hemorrhage. 2. Subtle area of decreased density involving the right basal ganglia approaching the anterior limb o f the internal capsule consistent with edema. No mass effect. Dylan May Jr., MD on May 09, 2017 a t 17:17 Board Certified Radiologist. This report was verified electronically.
[2017-05-09] MEDS ORDERED: SODIUM CHLOR 0.9% 1000 ML INJ 1,000 ML IV ONE (17:45)
[2017-05-09] MEDS ORDERED: CLOPIDOGREL 75 MG TAB PO SCH (18:00)
[2017-05-09] MEDS: WARFARIN SOD 5 MG TAB PO SCH (18:13)
--- NOTE | 2017-05-09 20:09 | MG ---
cc: DESIREE JIMENEZ M.D. Lab No: [id number] Date: Age: Sex: F Race: HISTORY: Stroke alert, right hemiparesis. DESCRIPTION OF THE RECORDING: A diffuse 7 Hz rhythm is noted. No focal abnormalities are noted. No seizure activity is seen. bitemporal muscle artifact is noted. Hyperventilation is not performed. A lot of muscle artifact is noted through the end of the recording. Photic stimulation was not performed. IMPRESSION: Essentially unremarkable EEG. No seizure activity is seen here. MD KEVIN Abbott/JOSÉ MIGUEL /7:55 PM /8:11 PM
[2017-05-09] MEDS: PRAVASTATIN SOD 40 MG TAB PO SCH (20:21)
[2017-05-09] MEDS: HEPARIN SODIUM - SQ 10,000 UNITS/ML VIAL SQ SCH (20:22)
[2017-05-09] MEDS ORDERED: traZODone HCL 50 MG TAB PO SCH (21:00)
[2017-05-10] VITALS (14 sets, daily range): BP systolic 167–189; BP diastolic 82–97; PULSE 88–106; RESP 22–37; TEMP 96–100; O2SAT 99–100
[2017-05-10] MEDS: ACETAMINOPHEN 325 MG TAB PO PRN ×2 (00:25→05:13)
[2017-05-10] MEDS: CHLORHEXIDINE GLUCONATE 2 % 1 PACK (2 CLOTHS) TOP SCH (03:17)
[2017-05-10] MEDS: LABETALOL HCL 100 MG/20 ML VIAL IV PUSH PRN ×3 (03:42→09:09)
[2017-05-10] MEDS: SODIUM CHLOR 0.9% 1000 ML INJ 1,000 ML IV SCH (04:52)
[2017-05-10] MEDS: hydrALAZINE HCL 20 MG/ML VIAL IV PUSH PRN (07:36)
[2017-05-10] MEDS ORDERED: LORazepam 2 MG/ML VIAL IV ONE (08:00)
[2017-05-10] MEDS ORDERED: ALPRAZolam 0.5 MG TAB PO PRN (08:15)
--- NOTE | 2017-05-10 08:34 | HHI.CCPN ---
Subjective Remarks/Hospital Course This is a 52-year-old female with a prior history of CVA that presented to the ED . It was reported that the patient had a two-hour history of right facial droop, right sided weakness and a headache. The patient also complained of dysarthria and incontinence. Her past medical history is significant for a previous CVA in 2003 with resultant only deficit of right-sided weakness requiring ambulation assistance utilizing a cane . A stroke alert was activated. The patient was seen by Dr. Culver NIH stroke score of 7. Imaging studies were performed -CT angiogram, and CT of the brain results and negative. TPA was initiated. Per ED physician, the patient had also complained of left lower quadrant pain, prior to initiation of tPA Hemoccult was obtained which resulted negative. Plans for CT of the abdomen and pelvis post TPA is pending. Critical care medicine was consulted. Upon my arrival the patient was receiving D5 half-normal saline, alert and oriented 3. No change from initial neurological exam, significant motor weakness right upper and lower extremity, with pronator drift right upper extremity, and complaints of a headache posterior, throbbing intermittently with a VAS score of 8/10. No complaints of photophobia, diplopia, visual story intact. Subjective: 715: Afebrile. Overnight and early this am, the patient received sedative type medications ( home medications) to include extended release morphine, Neurontin, Zoloft, and Wellbutrin. Initial neurological assessment, this a.m. difficult to obtain secondary to lethargy. Repeat assessment this afternoon show significant deficit right upper and lower extremity. Repeat CT this a.m. revealed right basal ganglion infarct. Hypercoagulable studies are pending. The patient does have a possible medical history of lupus, antiphospholipid antibodies are pending. The patient was noted initially to have a slightly elevated troponin. Repeat troponin levels are ordered. TTE has been ordered, cardiology consulted. Plans to initiate Coumadin dosing this evening. Formal speech evaluation is pending. 16: Overnight also noticed discontinued. Noted improvement in movement right upper extremity noted flexion this a.m., as well as right lower extremity. Left upper and lower extremity 4/5 motor activity. Patient was evaluated with formal swallow by speech and continues on a mechanical soft diet tolerating well. The patient was maintained in the supine position overnight, without any issues/difficulties. Coumadin was initiated last evening, in conjunction with patient's Plavix home medication .Hypercoagulable studies and lupus studies are pending. His a.m. the patient complained of extreme anxiety, and noted hypertension. Fentanyl 50 mcgs was given, Ativan 0.5 mg IV. Plan to resume Xanax, and Zoloft at lower dosage and decrease intervals, when necessary today. Troponin levels were initially elevated, now has to trended. Echo was performed yesterday, results pending. Objective Vital Signs Date Time Temp Pulse Resp B/P Pulse Ox O2 Delivery O2 Flow Rate FiO2 05/10/17 06:00 100 05/10/17 04:00 98.8 37 167/82 100 05/09/17 19:00 Nasal Cannula 2.00 Intake and Output 05/09/17 05/09/17 05/10/17 08:00 16:00 00:00 Intake Total 619 ml 810 ml 2064 ml Output Total 1050 ml 175 ml 250 ml Balance -431 ml 635 ml 1814 ml Result Diagram: 05/09/17 0447 05/09/17 0447 Imaging Last Impressions Head CT 05/09/17 0000 Signed Impressions: Service Date/Time: Tuesday, May 09, 2017 04:57 - CONCLUSION: 1. Small amount of cytotoxic edema in the right basal ganglia consistent with focus of acute infarction. Brian Lemon MD Abdomen/Pelvis CT 05/08/17 1546 Signed Impressions: Service Date/Time: Monday, May 08, 2017 17:17 - CONCLUSION: 1. Tiny bilateral pleural effusions and left lung base consolidation. 2. Slight fluid in the cul-de-sac and small pericardial effusion. Andrew Phipps MD Brain MRI 05/08/17 1523 Signed Impressions: Service Date/Time: Monday, May 08, 2017 20:47 - CONCLUSION: Small acute right basal ganglia infarct. Mild, chronic white matter changes. Padilla Sahni MD ADDENDUM: Restricted diffusion is also evident within the left side of the randy consistent with a pontine infarct. There is no associated hemorrhage or significant mass effect. Saulo Keller MD Head CTA 05/08/17 1455 Signed Impressions: Service Date/Time: Monday, May 08, 2017 15:12 - CONCLUSION: 1. No evidence for large vessel occlusion or significant aneurysm/vascular malformation. Nain Chen MD Neck CTA 05/08/17 0000 Signed Impressions: Service Date/Time: Monday, May 08, 2017 15:03 - CONCLUSION: No acute abnormality demonstrated. There is no stenosis. Very mild carotid atherosclerosis on the left. Padilla Sahni MD Last Impressions Head CTA 05/08/17 1455 Signed Impressions: Service Date/Time: Monday, May 08, 2017 15:12 - CONCLUSION: 1. No evidence for large vessel occlusion or significant aneurysm/vascular malformation. Nain Chen MD Head CT 05/08/17 0000 Signed Impressions: Service Date/Time: Monday, May 08, 2017 14:57 - CONCLUSION: 1. No acute intracranial abnormality. Nain Chen MD Objective Remarks BP 177/84 Pulse 88 O2 sat 100% on 2 lpm/NC RR23 2 L GENERAL: Thin female patient, awake and moving extremities , in moderate discomfort requesting Xanax SKIN: Warm and dry. HEAD: Atraumatic. Normocephalic. EYES: Pupils equal and round, 3 mm and brisk. No scleral icterus. No injection or drainage. ENT: No nasal bleeding or discharge. Mucous membranes pink and moist. Nasal cannula NECK: Trachea midline. No JVD. CARDIOVASCULAR: Normal rate, regular rhythm. Telemetry normal sinus RESPIRATORY: No accessory muscle use. Clear to auscultation. Breath sounds equal bilaterally. GASTROINTESTINAL: Abdomen soft, non-tender, nondistended. No guarding. MUSCULOSKELETAL: Extremities without clubbing, cyanosis, or edema. No obvious deformities. NEUROLOGICAL: Awake, alert and oriented. RASS 0. Right upper extremity motor strength 1/5 with flexion, right lower extremity 1/5 with flexion, right facial droop Urinary Catheter: Yes Assessment to: Remove A/P Assessment and Plan Assessment 1. Acute CVA 2. History of CVA (2004) 3. Hypertension 4. Hypercholesterolemia 5. Hepatitis C 6. Porphyria cutanea tarda 7. Anxiety disorder 8. Depression 9. Chronic back pain syndrome 10. History of migraine 11. History of gastritis 12. Incontinence 2/2 CVA 13. Tobacco abuse 14 Lupus??? Plan Neurologic: -05/08 Status post TPA -Neurology following-Dr. Culver -05/[address] -acute infarct right basal ganglia, left pontine CVA -May raise HOB 30 degrees -Neurochecks per ICU protocol -Will resume Xanax 0.5 TID, PRN for anxiety -Tylenol 650 mg every 6 hours when necessary for pain - Fentanyl 50 mcgs q 3 hr PRN pain -PT/OT evaluation and treat -05/09 Speech therapy formal swallow, cognitive evaluation - 05/[address] brain - no acute change Respiratory: -Maintain O2 sat greater than 92%, O2 at 2 L nasal cannula -Patient counseled on smoking cessation Cardiovascular: -Maintain MAP > 65 mmHG -Plavix and simvastatin -Coumadin 5 mg at 1800, her neurology recommendations -Follow-up hypercoagulable studies -Serial troponin levels downtrending 0.06-> 0.04 -05/09 Echo ordered, follow-up results -Follow-up antiphospholipid studies for lupus determination Renal: -Consider discontinuation of Ruelas -- Strict I/Os FEN/GI: -Mechanical soft heart healthy diet -Continue PPI, patient's home med -Protonix GI prophylaxis -Zofran for nausea -Bowel regimen Heme/ID: -ESR -43 -CRP elevated 3.77 -Obtain cultures Endocrine: Glucose monitoring every 6 hours. Low dose regimen, will discontinue @ 48 hours if no elevations noted post TPA -- SSI Prophylaxis: GI Prophylaxis Protonix DVT Prophylaxis -- SCDs, Heparin 5000 SQ twice a day, to begin 05/09, okayed by neurology Lines: PIVs 2. Central line if indicated Dispo: Discussed with INSULATION MACHINE OPERATOR at bedside Level 2 Physician Cherrie Gentile MD May 10, 2017 08:34
[2017-05-10] MEDS: PANTOPRAZOLE SODIUM 40 MG VIAL IV SCH (08:50)
[2017-05-10] MEDS: SODIUM CHLORIDE 0.9% FLUSH 10 ML FLUSH IV FLUSH SCH ×2 (08:51→22:25)
[2017-05-10] MEDS: HEPARIN SODIUM - SQ 10,000 UNITS/ML VIAL SQ SCH ×2 (08:51→20:07)
[2017-05-10] MEDS: DOCUSATE SODIUM 50 MG/SENNA 8.6 MG TAB PO SCH ×2 (08:51→20:07)
[2017-05-10] MEDS: ONDANSETRON ODT 4 MG TAB PO SCH ×3 (09:39→17:21)
--- NOTE | 2017-05-10 11:14 | HHI.PR ---
Subjective Remarks sr sp tpa Objective Vital Signs Date Time Temp Pulse Resp B/P Pulse Ox O2 Delivery O2 Flow Rate FiO2 05/10/17 10:00 92 05/10/17 08:00 100 Nasal Cannula 2.00 05/10/17 08:00 88 05/10/17 08:00 96.0 88 22 175/97 100 05/10/17 06:00 100 05/10/17 04:00 96 05/10/17 04:00 98.8 96 37 167/82 100 05/10/17 02:00 95 05/10/17 01:25 20 05/10/17 00:00 106 05/10/17 00:00 100.0 106 23 182/82 100 05/09/17 22:00 108 05/09/17 20:30 164/89 05/09/17 20:00 99.3 118 37 188/86 99 05/09/17 20:00 118 05/09/17 19:00 100 Nasal Cannula 2.00 05/09/17 18:00 110 05/09/17 16:00 87 05/09/17 16:00 98.9 92 23 170/81 100 05/09/17 14:00 101 05/09/17 12:00 86 05/09/17 12:00 99.0 98 20 182/84 99 I/O 05/09/17 05/09/17 05/09/17 05/10/17 05/10/17 05/10/17 07:00 15:00 23:00 07:00 15:00 23:00 Intake Total 619 ml 810 ml 2064 ml 732 ml Output Total 1050 ml 175 ml 250 ml 300 ml Balance -431 ml 635 ml 1814 ml 432 ml Intake Oral 100 ml 50 ml 100 ml 120 ml IV Total 519 ml 760 ml 1964 ml 612 ml Output Urine Total 1050 ml 175 ml 250 ml 300 ml # Bowel Movements 0 0 0 0 Result Diagram: 05/09/1744605/09/17446 Objective Remarks vff better r droop now 0/5 r hand but 3+ rue and rle now lifts all the way off bed well moves left well speech strong Assessment and Plan Assessment and Plan imp cta negx2 mri acute r bg infarct and left pontine cva on [plavix ldl ok b12 shot recheck trop fu echo blood cx start coumadin/sq hep hypercoag lab pend i dw med team 05/10/17 eeg neg echo pend sr inr pend dc plavix coumadin fu echo hob 30 degrees minimize sedatives narcotics Rickie Culver MD May 10, 2017 11:14
--- NOTE | 2017-05-10 11:20 | ECHRPT ---
Indication: CVA/TIA CONCLUSIONS Normal left ventricular size. Mild concentric left ventricular hypertrophy. The left ventricular systolic function is normal with an estimated ejection fraction in the range of 60-65%. The left atrial size is mildly dilated. Trace mitral valve regurgitation. There is trace tricuspid valve regurgitation. There is a trivial pericardial effusion present. BP: / HR: Rhythm: Sinus Technical Quality:Good FINDINGS LEFT VENTRICLE Doppler parameters are consistent with impaired left ventricular relaxtion (grade 1 diastolic dysfun ction). Normal left ventricular size. Mild concentric left ventricular hypertrophy. The left ventricular systolic function is normal with an estimated ejection fraction in the range of 60-65%. RIGHT VENTRICLE The right ventricular wall thickness is mildly increased. LEFT ATRIUM The left atrial size is mildly dilated. RIGHT ATRIUM The right atrial size is normal. ATRIAL SEPTUM Normal atrial septal thickness without atrial level shunting by limited color doppler interrogation. AORTA The aortic root and proximal ascending aorta are normal in size on limited imaging. MITRAL VALVE Trace mitral valve regurgitation. AORTIC VALVE Trileaflet aortic valve. No aortic valve stenosis or regurgitation. TRICUSPID VALVE There is trace tricuspid valve regurgitation. PULMONARY VALVE The pulmonary valve is not well visualized. VESSELS The inferior vena cava is normal in size. PERICARDIUM There is a trivial pericardial effusion present. Chago Galvez MD (Electronically Signed) Final Date:10 May 2017 11:20
[2017-05-10 11:45] LABS: INTERNATIONAL NORMALIZED RATIO 1.2 RATIO
[2017-05-10] MEDS: SERTRALINE HCL 50 MG TAB PO SCH (15:22)
[2017-05-10] MEDS: WARFARIN SOD 5 MG TAB PO SCH (15:24)
[2017-05-10] MEDS: ALPRAZolam 1 MG TAB PO PRN (20:07)
[2017-05-10] MEDS: PRAVASTATIN SOD 40 MG TAB PO SCH (20:07)
[2017-05-10] MEDS ORDERED: ONDANSETRON HCL 4 MG/2 ML VIAL IV PUSH PRN (21:45)
[2017-05-10] MEDS ORDERED: SODIUM CHLOR 0.9% 1000 ML INJ 1,000 ML IV ONE (22:30)
[2017-05-11] VITALS (13 sets, daily range): BP systolic 169–189; BP diastolic 83–92; PULSE 75–95; RESP 16–22; TEMP 98–98.9; O2SAT 95–100
[2017-05-11] MEDS: SODIUM CHLOR 0.9% 1000 ML INJ 1,000 ML IV SCH ×3 (01:45→17:02)
[2017-05-11] MEDS: CHLORHEXIDINE GLUCONATE 2 % 1 PACK (2 CLOTHS) TOP SCH (03:03)
[2017-05-11] MEDS: ALPRAZolam 1 MG TAB PO PRN ×3 (04:01→20:24)
[2017-05-11 04:55] LABS: INTERNATIONAL NORMALIZED RATIO 1.8 RATIO; PROTHROMBIN TIME - PATIENT 20.5 SEC (9.8-11.6)
[2017-05-11 05:18] LABS: BICARBONATE 23.1 MEQ/L (21.0-32.0); MAGNESIUM 1.7 MG/DL (1.5-2.5); POTASSIUM 3.6 MEQ/L (3.5-5.1)
--- NOTE | 2017-05-11 08:38 | HHI.PR ---
Subjective Remarks sr sp tpa on coumadin Objective Vital Signs Date Time Temp Pulse Resp B/P Pulse Ox O2 Delivery O2 Flow Rate FiO2 05/11/17 08:24 99 Nasal Cannula 2.00 05/11/17 06:00 75 05/11/17 04:00 98.0 86 18 174/89 100 05/11/17 04:00 86 05/11/17 02:00 88 05/11/17 00:00 80 05/11/17 00:00 98.8 80 16 171/83 100 05/10/17 23:03 100 Nasal Cannula 2.00 05/10/17 22:00 90 05/10/17 20:00 98.4 93 23 189/95 100 05/10/17 20:00 93 05/10/17 19:00 100 Nasal Cannula 2.00 05/10/17 18:00 98 05/10/17 16:00 93 05/10/17 16:00 97.6 93 27 186/89 100 05/10/17 14:00 94 05/10/17 12:00 97.6 94 24 188/94 100 05/10/17 12:00 94 05/10/17 10:00 92 I/O 05/10/17 05/10/17 05/10/17 05/11/17 05/11/17 05/11/17 07:00 15:00 23:00 07:00 15:00 23:00 Intake Total 732 ml 859 ml 150 ml 1694 ml Output Total 300 ml 600 ml 200 ml 200 ml Balance 432 ml 259 ml -50 ml 1494 ml Intake Oral 120 ml 400 ml 150 ml 160 ml IV Total 612 ml 459 ml 0 ml 1534 ml Output Urine Total 300 ml 600 ml 200 ml 200 ml # Bowel Movements 0 0 0 0 Result Diagram: 05/09/17 0447 05/11/17 0403 Objective Remarks vff better r droop now 0/5 r hand but 0/5 rue this am and rle now lifts off bed some moves left well speech strong Assessment and Plan Assessment and Plan imp cta negx2 mri acute r bg infarct and left pontine cva on plavix ldl ok b12 shot recheck trop fu echo blood cx start coumadin/sq hep hypercoag lab pend i dw med team 05/10/17 eeg neg echo pend sr inr pend dc plavix coumadin fu echo hob 30 degrees minimize sedatives narcotics\ 05/11/17 looks albit wore this am will fu with nurse later today inr 1.8 2mg today echo neg holter pend Rickie Culver MD May 11, 2017 08:38
[2017-05-11] MEDS: SODIUM CHLORIDE 0.9% FLUSH 10 ML FLUSH IV FLUSH SCH ×2 (09:00→20:28)
[2017-05-11] MEDS: DOCUSATE SODIUM 50 MG/SENNA 8.6 MG TAB PO SCH ×2 (09:15→20:24)
[2017-05-11] MEDS: PANTOPRAZOLE SODIUM 40 MG VIAL IV SCH (09:15)
[2017-05-11] MEDS: SERTRALINE HCL 50 MG TAB PO SCH (09:15)
[2017-05-11] MEDS: HEPARIN SODIUM - SQ 10,000 UNITS/ML VIAL SQ SCH ×2 (09:16→20:25)
[2017-05-11] MEDS: ONDANSETRON ODT 4 MG TAB PO SCH ×3 (11:24→17:01)
[2017-05-11 11:26] LABS: RAPID PLASMA REAGIN SCREEN NON-REACTIVE (NON-REACTVE)
[2017-05-11 14:45] LABS: ANA SCREEN POS (NEG)
--- NOTE | 2017-05-11 15:07 | HHI.CCPN ---
Subjective Remarks/Hospital Course This is a 52-year-old female with a prior history of CVA that presented to the ED . It was reported that the patient had a two-hour history of right facial droop, right sided weakness and a headache. The patient also complained of dysarthria and incontinence. Her past medical history is significant for a previous CVA in 2003 with resultant only deficit of right-sided weakness requiring ambulation assistance utilizing a cane . A stroke alert was activated. The patient was seen by Dr. Culver NIH stroke score of 7. Imaging studies were performed -CT angiogram, and CT of the brain results and negative. TPA was initiated. Per ED physician, the patient had also complained of left lower quadrant pain, prior to initiation of tPA Hemoccult was obtained which resulted negative. Plans for CT of the abdomen and pelvis post TPA is pending. Critical care medicine was consulted. Upon my arrival the patient was receiving D5 half-normal saline, alert and oriented 3. No change from initial neurological exam, significant motor weakness right upper and lower extremity, with pronator drift right upper extremity, and complaints of a headache posterior, throbbing intermittently with a VAS score of 8/10. No complaints of photophobia, diplopia, visual story intact. Subjective: 715: Afebrile. Overnight and early this am, the patient received sedative type medications ( home medications) to include extended release morphine, Neurontin, Zoloft, and Wellbutrin. Initial neurological assessment, this a.m. difficult to obtain secondary to lethargy. Repeat assessment this afternoon show significant deficit right upper and lower extremity. Repeat CT this a.m. revealed right basal ganglion infarct. Hypercoagulable studies are pending. The patient does have a possible medical history of lupus, antiphospholipid antibodies are pending. The patient was noted initially to have a slightly elevated troponin. Repeat troponin levels are ordered. TTE has been ordered, cardiology consulted. Plans to initiate Coumadin dosing this evening. Formal speech evaluation is pending. 16: Overnight also noticed discontinued. Noted improvement in movement right upper extremity noted flexion this a.m., as well as right lower extremity. Left upper and lower extremity 4/5 motor activity. Patient was evaluated with formal swallow by speech and continues on a mechanical soft diet tolerating well. The patient was maintained in the supine position overnight, without any issues/difficulties. Coumadin was initiated last evening, in conjunction with patient's Plavix home medication .Hypercoagulable studies and lupus studies are pending. His a.m. the patient complained of extreme anxiety, and noted hypertension. Fentanyl 50 mcgs was given, Ativan 0.5 mg IV. Plan to resume Xanax, and Zoloft at lower dosage and decrease intervals, when necessary today. Troponin levels were initially elevated, now has to trended. Echo was performed yesterday, results pending. 05/11: Cardiac ECHO normal. Right arm remains flaccid, some right leg movement. Objective Vital Signs Date Time Temp Pulse Resp B/P Pulse Ox O2 Delivery O2 Flow Rate FiO2 05/11/17 14:18 99 Nasal Cannula 2.00 05/11/17 14:18 88 05/11/17 12:00 98.8 22 176/86 Intake and Output 05/10/17 05/10/17 05/11/17 08:00 16:00 00:00 Intake Total 732 ml 859 ml 150 ml Output Total 300 ml 600 ml 200 ml Balance 432 ml 259 ml -50 ml Result Diagram: 05/09/17 0447 05/11/17 0403 Imaging Last Impressions Head CT 05/09/17 0000 Signed Impressions: Service Date/Time: Tuesday, May 09, 2017 04:57 - CONCLUSION: 1. Small amount of cytotoxic edema in the right basal ganglia consistent with focus of acute infarction. Brian Lemon MD Abdomen/Pelvis CT 05/08/17 1546 Signed Impressions: Service Date/Time: Monday, May 08, 2017 17:17 - CONCLUSION: 1. Tiny bilateral pleural effusions and left lung base consolidation. 2. Slight fluid in the cul-de-sac and small pericardial effusion. Andrew Phipps MD Brain MRI 05/08/17 1523 Signed Impressions: Service Date/Time: Monday, May 08, 2017 20:47 - CONCLUSION: Small acute right basal ganglia infarct. Mild, chronic white matter changes. Padilla Sahni MD ADDENDUM: Restricted diffusion is also evident within the left side of the randy consistent with a pontine infarct. There is no associated hemorrhage or significant mass effect. Saulo Keller MD Head CTA 05/08/17 1455 Signed Impressions: Service Date/Time: Monday, May 08, 2017 15:12 - CONCLUSION: 1. No evidence for large vessel occlusion or significant aneurysm/vascular malformation. Nain Chen MD Neck CTA 05/08/17 0000 Signed Impressions: Service Date/Time: Monday, May 08, 2017 15:03 - CONCLUSION: No acute abnormality demonstrated. There is no stenosis. Very mild carotid atherosclerosis on the left. Padilla Sahni MD Last Impressions Head CTA 05/08/17 1455 Signed Impressions: Service Date/Time: Monday, May 08, 2017 15:12 - CONCLUSION: 1. No evidence for large vessel occlusion or significant aneurysm/vascular malformation. Nain Chen MD Head CT 05/08/17 0000 Signed Impressions: Service Date/Time: Monday, May 08, 2017 14:57 - CONCLUSION: 1. No acute intracranial abnormality. Nain Chen MD Objective Remarks GENERAL: Thin female patient, awake and moving extremities SKIN: Warm and dry. HEAD: Atraumatic. Normocephalic. EYES: Pupils equal and round, 3 mm and brisk. ENT: No nasal bleeding or discharge. Mucous membranes pink and moist. Nasal cannula NECK: Trachea midline. Airway widely patent. CARDIOVASCULAR: Normal rate, regular rhythm. Telemetry normal sinus RESPIRATORY: No accessory muscle use. Clear to auscultation. Breath sounds equal bilaterally. GASTROINTESTINAL: Abdomen soft, non-tender, nondistended. No guarding. BS active. MUSCULOSKELETAL: Extremities without clubbing, cyanosis, or edema. No obvious deformities. NEUROLOGICAL: Awake, alert and oriented. RASS 0. Right upper extremity motor strength 0/5 with flexion, right lower extremity 2/5 with flexion, right facial droop. Speech clear. Left side normal 5/5 A/P Assessment and Plan Assessment 1. Acute CVA 2. History of CVA (2004) 3. Hypertension 4. Hypercholesterolemia 5. Hepatitis C 6. Porphyria cutanea tarda 7. Anxiety disorder 8. Depression 9. Chronic back pain syndrome 10. History of migraine 11. History of gastritis 12. Incontinence 2/2 CVA 13. Tobacco abuse 14 Lupus??? Plan Neurologic: -05/08 Status post TPA -Neurology following-Dr. Culver -05/[address] -acute infarct right basal ganglia, left pontine CVA -May raise HOB 30 degrees -Neurochecks per ICU protocol -Will resume Xanax 0.5 TID, PRN for anxiety -Tylenol 650 mg every 6 hours when necessary for pain - Fentanyl 50 mcgs q 3 hr PRN pain -PT/OT evaluation and treat -05/09 Speech therapy formal swallow, cognitive evaluation - 05/[address] brain - no acute change Respiratory: -Maintain O2 sat greater than 92%, O2 at 2 L nasal cannula -Patient counseled on smoking cessation Cardiovascular: -Maintain MAP > 65 mmHG -Plavix and simvastatin -Coumadin 5 mg at 1800, her neurology recommendations -Follow-up hypercoagulable studies -Serial troponin levels downtrending 0.06-> 0.04 -05/09 Echo ordered, follow-up results -Follow-up antiphospholipid studies for lupus determination Renal: -Consider discontinuation of Ruelas -- Strict I/Os FEN/GI: -Mechanical soft heart healthy diet -Continue PPI, patient's home med -Protonix GI prophylaxis -Zofran for nausea -Bowel regimen Heme/ID: -ESR -43 -CRP elevated 3.77 -Obtain cultures Endocrine: Glucose monitoring every 6 hours. Low dose regimen, will discontinue @ 48 hours if no elevations noted post TPA -- SSI Prophylaxis: GI Prophylaxis Protonix DVT Prophylaxis -- SCDs, Heparin 5000 SQ twice a day, to begin 05/09, okayed by neurology Lines: PIVs 2. Central line if indicated Dispo: Discussed with TECHNICAL AID at bedside Overall impression: S/P CVA with residual right sided paresis. Matthew Cowan MD May 11, 2017 15:07
[2017-05-11] MEDS: WARFARIN SOD 2 MG TAB PO SCH (17:01)
[2017-05-11] MEDS ORDERED: RESP: ALBUTEROL 2.5 MG/IPRATROPIUM 0.5 MG NEB (PRN) NEB (18:00)
[2017-05-11] MEDS: RESP: ALBUTEROL 2.5 MG/IPRATROPIUM 0.5 MG NEB (SCH) NEB ×2 (18:00→20:55)
[2017-05-11] MEDS: PRAVASTATIN SOD 40 MG TAB PO SCH (20:24)
[2017-05-11] MEDS: hydrALAZINE HCL 20 MG/ML VIAL IV PUSH PRN (21:33)
[2017-05-12] VITALS (14 sets, daily range): BP systolic 162–192; BP diastolic 76–92; PULSE 86–116; RESP 22–31; TEMP 97.9–100; O2SAT 95–99
[2017-05-12] MEDS: ALPRAZolam 1 MG TAB PO PRN ×3 (02:58→23:15)
[2017-05-12] MEDS: CHLORHEXIDINE GLUCONATE 2 % 1 PACK (2 CLOTHS) TOP SCH (04:00)
[2017-05-12] MEDS: RESP: ALBUTEROL 2.5 MG/IPRATROPIUM 0.5 MG NEB (SCH) NEB ×4 (04:12→21:15)
[2017-05-12 04:47] LABS: INTERNATIONAL NORMALIZED RATIO 2.2 RATIO
[2017-05-12 04:58] LABS: BICARBONATE 22.3 MEQ/L (21.0-32.0); POTASSIUM 3.2 MEQ/L (3.5-5.1)
--- NOTE | 2017-05-12 07:55 | HHI.PR ---
Subjective Remarks sr sp tpa on coumadin Objective Vital Signs Date Time Temp Pulse Resp B/P Pulse Ox O2 Delivery O2 Flow Rate FiO2 05/12/17 06:00 104 05/12/17 05:00 86 05/12/17 04:00 98.7 104 26 162/76 97 05/12/17 00:00 98.7 96 22 184/92 95 05/11/17 22:00 80 05/11/17 20:56 95 21 05/11/17 20:00 95 05/11/17 20:00 98.9 95 20 189/92 96 05/11/17 19:00 96 Room Air 2.00 05/11/17 18:17 95 21 05/11/17 16:00 98.6 86 18 169/87 100 05/11/17 14:18 99 Nasal Cannula 2.00 05/11/17 14:18 88 05/11/17 12:00 98.8 88 22 176/86 100 05/11/17 08:24 99 Nasal Cannula 2.00 05/11/17 08:00 98.4 91 18 180/83 100 I/O 05/11/17 05/11/17 05/11/17 05/12/17 05/12/17 05/12/17 06:59 14:59 22:59 06:59 14:59 22:59 Intake Total 1694 ml 1170 ml 802 ml Output Total 200 ml 800 ml 550 ml Balance 1494 ml 370 ml 252 ml Intake Oral 160 ml 200 ml 150 ml IV Total 1534 ml 970 ml 652 ml Output Urine Total 200 ml 800 ml 550 ml # Bowel Movements 0 0 0 Result Diagram: 05/09/17 0447 05/12/17 0345 Objective Remarks vff better r droop now 0/5 r hand but 0/5 rue this am and rle now lifts off bed some moves left well speech strong no change Assessment and Plan Assessment and Plan imp cta negx2 mri acute r bg infarct and left pontine cva on plavix ldl ok b12 shot recheck trop fu echo blood cx start coumadin/sq hep hypercoag lab pend i dw med team 05/10/17 eeg neg echo pend sr inr pend dc plavix coumadin fu echo hob 30 degrees minimize sedatives narcotics\ 05/11/17 looks albit worse this am will fu with nurse later today inr 1.8 2mg today echo neg holter pend 05/12/17 stable but no movement r arm recheck mri inr 2.2 oob ok to rehab soon maybe tomorrow Rickie Culver MD May 12, 2017 07:55
[2017-05-12] MEDS: PANTOPRAZOLE SODIUM 40 MG VIAL IV SCH (07:58)
[2017-05-12] MEDS: HEPARIN SODIUM - SQ 10,000 UNITS/ML VIAL SQ SCH ×2 (07:59→21:07)
[2017-05-12] MEDS: DOCUSATE SODIUM 50 MG/SENNA 8.6 MG TAB PO SCH ×2 (07:59→21:08)
[2017-05-12] MEDS: ONDANSETRON ODT 4 MG TAB PO SCH ×3 (08:00→17:31)
[2017-05-12] MEDS: SERTRALINE HCL 50 MG TAB PO SCH (08:00)
[2017-05-12] MEDS: SODIUM CHLORIDE 0.9% FLUSH 10 ML FLUSH IV FLUSH SCH ×2 (09:00→21:00)
[2017-05-12] MEDS ORDERED: ALPRAZolam 1 MG TAB PO ONE (09:30)
[2017-05-12] MEDS: hydrALAZINE HCL 20 MG/ML VIAL IV PUSH PRN ×2 (09:45→17:31)
--- NOTE | 2017-05-12 12:11 | HHI.PR ---
Subjective Remarks Follow-up right basal ganglia infarct and left pontine CVA 05/12/17-patient seen and examined; Alert and oriented 2, patient with right flaccid arm Objective Vitals Vital Signs Date Time Temp Pulse Resp B/P Pulse Ox O2 Delivery O2 Flow Rate FiO2 05/12/17 10:05 98 21 05/12/17 10:00 104 05/12/17 08:00 104 05/12/17 07:00 97 Room Air 05/12/17 06:00 104 05/12/17 05:00 86 05/12/17 04:00 98.7 104 26 162/76 97 05/12/17 00:00 98.7 96 22 184/92 95 05/11/17 22:00 80 05/11/17 20:56 95 21 05/11/17 20:00 95 05/11/17 20:00 98.9 95 20 189/92 96 05/11/17 19:00 96 Room Air 2.00 05/11/17 18:17 95 21 05/11/17 16:00 98.6 86 18 169/87 100 05/11/17 14:18 99 Nasal Cannula 2.00 05/11/17 14:18 88 I/O 05/11/17 05/11/17 05/11/17 05/12/17 05/12/17 05/12/17 06:59 14:59 22:59 06:59 14:59 22:59 Intake Total 1694 ml 1170 ml 802 ml Output Total 200 ml 800 ml 550 ml Balance 1494 ml 370 ml 252 ml Intake Oral 160 ml 200 ml 150 ml IV Total 1534 ml 970 ml 652 ml Output Urine Total 200 ml 800 ml 550 ml # Bowel Movements 0 0 0 Result Diagram: 05/09/17 0447 05/12/17 0345 Imaging Last Impressions Head CT 05/09/17 1600 Signed Impressions: Service Date/Time: Tuesday, May 09, 2017 16:47 - CONCLUSION: 1. No hemorrhage. 2. Subtle area of decreased density involving the right basal ganglia approaching the anterior limb of the internal capsule consistent with edema. No mass effect. Dylan May Jr., MD Abdomen/Pelvis CT 05/08/17 1546 Signed Impressions: Service Date/Time: Monday, May 08, 2017 17:17 - CONCLUSION: 1. Tiny bilateral pleural effusions and left lung base consolidation. 2. Slight fluid in the cul-de-sac and small pericardial effusion. Andrew Phipps MD Brain MRI 05/08/17 1523 Signed Impressions: Service Date/Time: Monday, May 08, 2017 20:47 - CONCLUSION: Small acute right basal ganglia infarct. Mild, chronic white matter changes. Padilla Sahni MD ADDENDUM: Restricted diffusion is also evident within the left side of the randy consistent with a pontine infarct. There is no associated hemorrhage or significant mass effect. Saulo Keller MD Head CTA 05/08/17 1455 Signed Impressions: Service Date/Time: Monday, May 08, 2017 15:12 - CONCLUSION: 1. No evidence for large vessel occlusion or significant aneurysm/vascular malformation. Nain Chen MD Neck CTA 05/08/17 0000 Signed Impressions: Service Date/Time: Monday, May 08, 2017 15:03 - CONCLUSION: No acute abnormality demonstrated. There is no stenosis. Very mild carotid atherosclerosis on the left. Padilla Sahni MD Objective Remarks GENERAL: NAD and speaks with some slurred speech SKIN: Warm and dry. HEAD: Normocephalic. EYES: No scleral icterus. No injection or drainage. NECK: Supple, trachea midline. No JVD or lymphadenopathy. CARDIOVASCULAR: Regular rate and rhythm without murmurs, gallops, or rubs. RESPIRATORY: Breath sounds equal bilaterally. No accessory muscle use. GASTROINTESTINAL: Abdomen soft, non-tender, nondistended. MUSCULOSKELETAL: No cyanosis, or edema. Right flaccid arm BACK: Nontender without obvious deformity. No CVA tenderness. A/P Problem List: (1) Stroke ICD Code: I63.9 Status: Acute Assessment and Plan 52-year-old female with Right basal ganglia infarct and left pontine CVA Continue management per stroke protocol Status post TPA and currently on Coumadin. Monitor INR/PT Continue Lipitor Secondary to continue right flaccid arm, recheck brain MRI today 05/12/17 PT/OT/speech therapy as well as PMR Appreciate input from neurology Anxiety/depression Continue with Zoloft Hyperlipidemia On Lipitor Hypertension Resume outpatient medication History of hepatitis C Chronic DVT prophylaxis: Heparin /Bilateral SCDs GI prophylaxis: PPI Discharge Planning Likely discharge to a SNF 05/13/17 when clear by neurology Ponteayse,Al MD May 12, 2017 12:11
--- NOTE | 2017-05-12 13:58 | HM ---
Date Performed: 05/09/2017 Time Performed: 18:54:00 HOOKUP DATE: 05/09/17 06:54:00 PM Sat ANALYSIS START TIME: 05/09/2017 6:59:00 PM ANALYSIS END TIME: 05/10/2017 1:49:23 PM PATIENT AGE: 52 PATIENT HEIGHT PATIENT WEIGHT DRUG LIST PATIENT DIAGNOSIS TEST NARRATIVE: The patient's average heart rate was 100 BPM. Heart rates greater than 120 BPM were noted 7% of the time. No episodes of bradycardia were noted. No pauses exceeding 2.0 se conds were noted. 32 ventricular ectopics, which represented < 1% of the total beat count, were n oted. The highest ventricular ectopic frequency occurred from 05:00 AM to 06:00 AM Sun. During this time 6 VE(s) occurred. Ventricular ectopics were observed as 30 isolated beat(s) and as 1 couplet(s ). No runs were noted. 2 supraventricular ectopics, which represented < 1% of the total beat cou nt, were noted. The highest supraventricular ectopic frequency occurred from 09:00 AM to 10:00 AM Reynoso n. During this time 2 SVE(s) occurred. No episodes of ST depression (defined as -1.0 mm or more) were noted in channel 1. No episodes of ST depression (defined as -1.0 mm or more) were noted in ch genoveva 2. No episodes of ST depression (defined as -1.0 mm or more) were noted in channel 3. TEST INTERPRETATION: The underlying rhythm is normal sinus. Occasional PVCs. Conclusions: PVCs , PACs, couplet PVCs. No evidence of any renee or tachy arrhythmia. Signed by : Juany Jimenez
[2017-05-12] MEDS: WARFARIN SOD 2 MG TAB PO SCH (16:40)
--- NOTE | 2017-05-12 18:12 | RADRPT ---
EXAM DATE/TIME: 05/12/2017 16:53 [facility] COMPARISON: No previous studies available for comparison. INDICATIONS : Stroke MEDICAL HISTORY : Hypertension. Stroke Lupus SURGICAL HISTORY : Hysterectomy. Hernia, shoulder repair ENCOUNTER: Subsequent ACUITY: 4-6 days PAIN SCORE: 3/10 LOCATION: Cranial TECHNIQUE: Multiplanar, multisequence MRI of the brain was performed without contrast. FINDINGS: MRI of the brain was performed without contrast. The left pontine stroke seen previous ly is continuing to evolve. It is completely to the left of midline measuring as much as 2 cm in AP d imension and 1.1 cm across. It is more prominent than it was on the . There is an additional righ t-sided basal ganglia infarct which is stable from the previous study. No new lesions are identified . I do not see any visual hemorrhage on the gradient images. T2 images are otherwise unremarkable. There again is a small possible choroid plexus cyst in the atria, unchanged. No subarachnoid or subd ural hematoma is identified. CONCLUSION: Abnormal areas of diffusion signal left side of the randy and right basal ganglia are again present. The pontine infarct is slightly larger than it was on the . No significant hemor rhage is noted. Juan Medeiros MD on May 12, 2017 at 17:44 Board Certified Radiologist. This report was verified electronically.
[2017-05-12] MEDS: PRAVASTATIN SOD 40 MG TAB PO SCH (21:08)
[2017-05-13] VITALS (16 sets, daily range): BP systolic 165–174; BP diastolic 72–95; PULSE 90–140; RESP 16–27; TEMP 98.6–100; O2SAT 88–100
[2017-05-13] MEDS: RESP: ALBUTEROL 2.5 MG/IPRATROPIUM 0.5 MG NEB (SCH) NEB ×4 (02:18→21:35)
[2017-05-13] MEDS: CHLORHEXIDINE GLUCONATE 2 % 1 PACK (2 CLOTHS) TOP SCH (04:00)
[2017-05-13 05:22] LABS: INTERNATIONAL NORMALIZED RATIO 1.8 RATIO; PROTHROMBIN TIME - PATIENT 20.4 SEC (9.8-11.6)
[2017-05-13] MEDS: ALPRAZolam 1 MG TAB PO PRN ×3 (07:06→23:44)
[2017-05-13] MEDS: hydrALAZINE HCL 20 MG/ML VIAL IV PUSH PRN (07:33)
--- NOTE | 2017-05-13 08:20 | HHI.PR ---
Subjective Remarks sr sp tpa on coumadin Objective Vital Signs Date Time Temp Pulse Resp B/P Pulse Ox O2 Delivery O2 Flow Rate FiO2 05/13/17 07:38 99 Nasal Cannula 2.00 05/13/17 06:00 107 05/13/17 04:00 99.3 92 20 172/86 99 05/13/17 04:00 92 05/13/17 02:00 102 05/13/17 00:00 101 05/13/17 00:00 100.0 101 22 174/84 98 05/12/17 22:00 116 05/12/17 21:15 99 Nasal Cannula 2.00 05/12/17 20:00 106 05/12/17 20:00 100.0 106 26 175/86 98 05/12/17 20:00 100 Nasal Cannula 2.00 05/12/17 18:00 114 05/12/17 16:00 99.6 95 26 186/84 98 05/12/17 16:00 104 05/12/17 14:00 104 05/12/17 12:00 104 05/12/17 12:00 98.7 110 31 192/91 99 05/12/17 10:05 98 21 05/12/17 10:00 104 I/O 05/12/17 05/12/17 05/12/17 05/13/17 05/13/17 05/13/17 07:00 15:00 23:00 07:00 15:00 23:00 Intake Total 802 ml 800 ml 549 ml 942 ml Output Total 550 ml 450 ml 225 ml 225 ml Balance 252 ml 350 ml 324 ml 717 ml Intake Oral 150 ml 325 ml 360 ml 360 ml IV Total 652 ml 475 ml 189 ml 582 ml Output Urine Total 550 ml 450 ml 225 ml 225 ml # Bowel Movements 0 1 0 1 Result Diagram: 05/09/17 0447 05/12/17 0345 Objective Remarks vff better r droop now 0/5 r hand but 0/5 rue this am and rle now lifts off bed some moves left well speech strong no change Assessment and Plan Assessment and Plan imp cta negx2 mri acute r bg infarct and left pontine cva ldl ok b12 shot recheck trop fu echo blood cx start coumadin/sq hep hypercoag lab pend i dw med team 05/10/17 eeg neg echo pend sr inr pend dc plavix coumadin fu echo hob 30 degrees minimize sedatives narcotics\ 05/11/17 looks albit worse this am will fu with nurse later today inr 1.8 2mg today echo neg holter pend 05/12/17 stable but no movement r arm recheck mri inr 2.2 oob ok to rehab soon maybe tomorrow 05/13/17 inr 1.8 inc coumadin very weak on r from pontine cva some enlargement of cva keep ivf on and bp up oob ok hr inc defe to med team Rickie Culver MD May 13, 2017 08:20
[2017-05-13] MEDS: PANTOPRAZOLE SOD 40 MG DELAYED RELEASE TAB PO SCH (08:21)
[2017-05-13] MEDS: LABETALOL HCL 100 MG/20 ML VIAL IV PUSH PRN (08:21)
[2017-05-13] MEDS: DOCUSATE SODIUM 50 MG/SENNA 8.6 MG TAB PO SCH ×2 (08:21→20:04)
[2017-05-13] MEDS: ONDANSETRON ODT 4 MG TAB PO SCH ×3 (08:21→17:29)
[2017-05-13] MEDS: SERTRALINE HCL 50 MG TAB PO SCH (08:21)
[2017-05-13] MEDS: SODIUM CHLORIDE 0.9% FLUSH 10 ML FLUSH IV FLUSH SCH ×2 (09:00→20:05)
[2017-05-13] MEDS: SODIUM CHLOR 0.9% 1000 ML INJ 1,000 ML IV SCH (11:33)
--- NOTE | 2017-05-13 13:27 | PD.CONS ---
HPI Service Rehabilitation Medicine Consult Requested By Reason for Consult Comprehensive rehabilitation evaluation. Primary Care Physician Unknown History of Present Illness Ms. Fam is a 52 y/o F patient with PMHx of HTN, HLD, [place], previous stroke with Rt weakness with minimal residual deficits and was independent using a cane until 05/08/17 when she presented to the [facility] due to Rt side weakness. She was brought as a stroke alert. Was seen by Ferney NIH stroke score of 7. Imaging studies were performed -CT angiogram, and CT of the brain results and negative. TPA was initiated. Brain MRI showed abnormal areas of diffusion on Lt side randy and right basal ganglia with no hemorrhage. She was started on coumadin now. She had an enlargement of the CVA based on serial imaging. On permissive HTN. She is currently Max to Mod A with care. Has dysphagia. Continues to report abdominal pain, previous CT scan did not showed any acute findings. PM&R has been consulted for help with rehab recs. Review of Systems Constitutional: DENIES: Fever Eyes: DENIES: Blurred vision, Diplopia Ears, nose, mouth, throat: DENIES: Hearing loss Respiratory: DENIES: Cough Cardiovascular: DENIES: Chest pain Gastrointestinal: COMPLAINS OF: Abdominal pain, Nausea, DENIES: Constipation, Diarrhea, Vomiting Musculoskeletal: DENIES: Joint pain Integumentary: DENIES: Pruritus Hematologic/lymphatic: DENIES: Bruising Neurologic: COMPLAINS OF: Abnormal gait, Localized weakness, Poor Balance, DENIES: Paresthesias Psychiatric: DENIES: Confusion Past Family Social History Allergies: Coded Allergies: Bactrim (Verified Allergy, Severe, SKIN PROBLEMS, 03/06/17) Past Medical History HTN, Lupus, HLD, previous stroke, porphyria Past Surgical History inguinal hernia repair, hysterectomy Current Medications Current Medications Medications (Trade) Dose Ordered Sig/[place] Route Start Time Stop Time Status Last Admin (NS Flush) 2 ml UNSCH PRN IV FLUSH 05/08/17 17:30 (NS Flush) 2 ml BID IV FLUSH 05/08/17 21:00 05/13/17 09:00 (Tylenol) 650 mg Q6H PRN PO 05/08/17 17:30 05/10/17 05:13 Miscellaneous Information 1 Q361D XX 05/08/17 17:30 (Chlorhexidine 2% Cloth) 3 pack Taper DAILY@04 TOP 05/09/17 04:00 05/05/18 03:59 05/13/17 04:00 (Chlorhexidine 2% Cloth) 3 pack UNSCH PRN TOP 05/08/17 17:30 (Eloisa-Colace) 1 tab BID PO 05/08/17 21:00 05/13/17 08:21 (Milk Of Magnesia Liq) 30 ml Q12H PRN PO 05/08/17 17:30 (Senokot) 17.2 mg Q12H PRN PO 05/08/17 17:30 (Dulcolax Supp) 10 mg DAILY PRN RECTAL 05/08/17 17:30 Lactulose 30 ml 30 ml DAILY PRN PO 05/08/17 17:30 Potassium Chloride 100 ml @ 50 mls/hr Q2H PRN IV 05/08/17 17:30 (KCl 20 Meq Premix Inj) 100 ml @ 50 mls/hr Q2H PRN IV 05/08/17 17:30 Potassium Bicarb/ Potassium Chloride 50 meq 50 meq UNSCH PRN PO 05/08/17 17:30 Potassium Chloride 100 ml @ 25 mls/hr UNSCH PRN IV 05/08/17 17:30 Potassium Chloride 100 ml @ 50 mls/hr Q2H PRN IV 05/08/17 17:30 (Magnesium Sulfate Inj/NS Inj) 100 ml @ 50 mls/hr UNSCH PRN IV 05/08/17 17:30 Magnesium Oxide 800 mg 800 mg UNSCH PRN PO 05/08/17 17:30 (Magnesium Sulfate Inj/NS Inj) 100 ml @ 50 mls/hr UNSCH PRN IV 05/08/17 17:30 Potassium Phosphate 2000 mg 2,000 mg Q4H PRN PO 05/08/17 17:30 (Sodium Phosphate Inj/NS 250 ml Inj) 250 ml @ 42 mls/hr UNSCH PRN IV 05/08/17 17:30 Potassium Phosphate 2000 mg 2,000 mg UNSCH PRN PO/TUBE 05/08/17 17:30 (Potassium Phosphate Inj/NS 250 ml Inj) 260 ml @ 42 mls/hr UNSCH PRN IV 05/08/17 17:30 (Zofran Odt) 8 mg TID PO 05/09/17 09:00 05/13/17 08:21 (Pravachol) 40 mg HS PO 05/09/17 21:00 05/12/17 21:08 (Apresoline Inj) 20 mg Q4H PRN IV PUSH 05/08/17 22:45 05/13/17 07:33 Labetalol HCl 10 mg 10 mg Q4H PRN IV PUSH 05/09/17 03:15 05/13/17 08:21 (Coumadin Consult Pharmacy) 0 ml @ 0 mls/hr UNSCH OTHER 05/09/17 18:00 (fentaNYL INJ) 50 mcg Q3H PRN IV PUSH 05/10/17 08:30 05/13/17 10:18 (Xanax) 1 mg Q8H PRN PO 05/10/17 16:15 05/13/17 07:06 (Zoloft) 50 mg DAILY PO 05/10/17 15:00 05/13/17 08:21 (Zofran Inj) 4 mg Q4H PRN IV PUSH 05/10/17 21:45 05/10/17 22:20 Pantoprazole Sodium 40 mg 40 mg DAILY PO 05/13/17 09:00 05/13/17 08:21 (NS 1000 ml Inj) 1,000 ml @ 70 mls/hr [id number] IV 05/12/17 21:15 05/13/17 11:33 (Coumadin) 3 mg DAILY@16 PO 05/13/17 16:00 Family History Hx of HTN Social History + hx of tobacco. Exam I&O / VS 05/12/17 05/12/17 05/13/17 15:00 23:00 07:00 Intake Total 800 ml 549 ml 942 ml Output Total 450 ml 225 ml 225 ml Balance 350 ml 324 ml 717 ml Intake Oral 325 ml 360 ml 360 ml IV Total 475 ml 189 ml 582 ml Output Urine Total 450 ml 225 ml 225 ml # Bowel Movements 1 0 1 Vital Signs Date Time Temp Pulse Resp B/P Pulse Ox O2 Delivery O2 Flow Rate FiO2 05/13/17 12:00 96 05/13/17 12:00 99.4 97 21 170/80 100 05/13/17 10:00 96 05/13/17 08:00 96 05/13/17 08:00 99.5 96 21 167/72 95 05/13/17 07:38 99 Nasal Cannula 2.00 05/13/17 07:00 95 Nasal Cannula 2.00 05/13/17 06:00 107 05/13/17 04:00 99.3 92 20 172/86 99 05/13/17 04:00 92 05/13/17 02:00 102 05/13/17 00:00 101 05/13/17 00:00 100.0 101 22 174/84 98 05/12/17 22:00 116 05/12/17 21:15 99 Nasal Cannula 2.00 05/12/17 20:00 106 05/12/17 20:00 100.0 106 26 175/86 98 05/12/17 20:00 100 Nasal Cannula 2.00 05/12/17 18:00 114 05/12/17 16:00 99.6 95 26 186/84 98 05/12/17 16:00 104 05/12/17 14:00 104 General: Mild distress (due to abdominal pain), Other (Follows commands) HEENT NC, AT Respiratory: Lungs CTA, Non-labored respirations, Symmetrical expansion Gastrointestinal: Positive Bowel Sounds, Distended, Tender Cardiovascular: Normal rate Musculoskeletal: ROM (Full in Lt side) Psychiatric: Cooperative Orientation: oriented to Self, oriented to Place Motor: Right Upper Extremity (0/5), Left Upper Extremity (5/5), Right Lower Extremity (1/5), Left Lower Extremity (5/5) Assessment and Plan Diagnosis: (1) Stroke Plan 1. Continue with PT, OT and ST while in the hospital. 2. Abdominal pain will check a KUB. Having BM. Some nausea reported. 3. Patient will benefit from inpatient rehab since patient had a significant change in status, I do believe she will be able to tolerate 3 hrs of therapy. She will need PT, OT and speech. She will need close medical management due to HTN, on coumadin, monitor for urinary retention, monitor and manage pain and monitor and replace electrolytes. Thanks for this consultation. Will continue to follow while in the hospital. Julio C Crain MD May 13, 2017 13:27
--- NOTE | 2017-05-13 14:37 | RADRPT ---
EXAM DATE/TIME: 05/13/2017 14:10 [place] COMPARISON: No previous studies available for comparison. INDICATIONS : Abdomen pain. MEDICAL HISTORY : Hypertension. SURGICAL HISTORY : Inguinal hernia repair. Hysterectomy. ENCOUNTER: Initial ACUITY: 4 - 6 days PAIN SCORE: 8/10 LOCATION: Abdomen. FINDINGS: Supine view of the abdomen was performed. The abdominal bowel gas pattern is normal. No abnormal ma sses, calcifications, or organomegaly is seen. The osseous structures are unremarkable. CONCLUSION: Normal examination. Juan Medeiros MD on May 13, 2017 at 14:33 Board Certified Radiologist. This report was verified electronically.
--- NOTE | 2017-05-13 14:42 | HHI.PR ---
Subjective Remarks c/o abdominal pain denies cp/sob had 3 BM's today as per RN BP very elevated Objective Vitals Vital Signs Date Time Temp Pulse Resp B/P Pulse Ox O2 Delivery O2 Flow Rate FiO2 05/13/17 14:00 96 05/13/17 12:00 96 05/13/17 12:00 99.4 97 21 170/80 100 05/13/17 10:00 96 05/13/17 08:00 96 05/13/17 08:00 99.5 96 21 167/72 95 05/13/17 07:38 99 Nasal Cannula 2.00 05/13/17 07:00 95 Nasal Cannula 2.00 05/13/17 06:00 107 05/13/17 04:00 99.3 92 20 172/86 99 05/13/17 04:00 92 05/13/17 02:00 102 05/13/17 00:00 101 05/13/17 00:00 100.0 101 22 174/84 98 05/12/17 22:00 116 05/12/17 21:15 99 Nasal Cannula 2.00 05/12/17 20:00 106 05/12/17 20:00 100.0 106 26 175/86 98 05/12/17 20:00 100 Nasal Cannula 2.00 05/12/17 18:00 114 05/12/17 16:00 99.6 95 26 186/84 98 05/12/17 16:00 104 I/O 05/12/17 05/12/17 05/12/17 05/13/17 05/13/17 05/13/17 06:59 14:59 22:59 06:59 14:59 22:59 Intake Total 802 ml 800 ml 549 ml 942 ml 653 ml Output Total 550 ml 450 ml 225 ml 225 ml 200 ml Balance 252 ml 350 ml 324 ml 717 ml 453 ml Intake Oral 150 ml 325 ml 360 ml 360 ml 200 ml IV Total 652 ml 475 ml 189 ml 582 ml 453 ml Output Urine Total 550 ml 450 ml 225 ml 225 ml 200 ml # Bowel Movements 0 1 0 1 2 Result Diagram: 05/09/17 0447 05/12/17 0345 Imaging Last Impressions Abdomen X-Ray 05/13/17 0000 Signed Impressions: Service Date/Time: Saturday, May 13, 2017 14:10 - CONCLUSION: Normal examination. Juan Medeiros MD Brain MRI 05/12/17 0000 Signed Impressions: Service Date/Time: Friday, May 12, 2017 16:53 - CONCLUSION: Abnormal areas of diffusion signal left side of the randy and right basal ganglia are again present. The pontine infarct is slightly larger than it was on the . No significant hemorrhage is noted. Juan Medeiros MD Head CT 05/09/17 1600 Signed Impressions: Service Date/Time: Tuesday, May 09, 2017 16:47 - CONCLUSION: 1. No hemorrhage. 2. Subtle area of decreased density involving the right basal ganglia approaching the anterior limb of the internal capsule consistent with edema. No mass effect. Dylan May Jr., MD Abdomen/Pelvis CT 05/08/17 1546 Signed Impressions: Service Date/Time: Monday, May 08, 2017 17:17 - CONCLUSION: 1. Tiny bilateral pleural effusions and left lung base consolidation. 2. Slight fluid in the cul-de-sac and small pericardial effusion. KMax Phipps MD Head CTA 05/08/17 1455 Signed Impressions: Service Date/Time: Monday, May 08, 2017 15:12 - CONCLUSION: 1. No evidence for large vessel occlusion or significant aneurysm/vascular malformation. Nain Chen MD Neck CTA 05/08/17 0000 Signed Impressions: Service Date/Time: Monday, May 08, 2017 15:03 - CONCLUSION: No acute abnormality demonstrated. There is no stenosis. Very mild carotid atherosclerosis on the left. Padilla Sahni MD Objective Remarks GENERAL: NAD and speaks with some slurred speech SKIN: Warm and dry. HEAD: Normocephalic. EYES: No scleral icterus. No injection or drainage. NECK: Supple, trachea midline. No JVD or lymphadenopathy. CARDIOVASCULAR: Regular rate and rhythm without murmurs, gallops, or rubs. RESPIRATORY: Breath sounds equal bilaterally. No accessory muscle use. GASTROINTESTINAL: Abdomen soft, , diffusely tender to palpation, bowel sounds present. No rebound tenderness. MUSCULOSKELETAL: No cyanosis, or edema. Muscle strength in the right upper extremity is 0/5 and in the right lower extremity is 1/5 BACK: Nontender without obvious deformity. No CVA tenderness. Medications and IVs Current Medications Medications (Trade) Dose Ordered Sig/[place]eville Route Start Time Stop Time Status Last Admin (NS Flush) 2 ml UNSCH PRN IV FLUSH 05/08/17 17:30 (NS Flush) 2 ml BID IV FLUSH 05/08/17 21:00 05/13/17 09:00 (Tylenol) 650 mg Q6H PRN PO 05/08/17 17:30 05/10/17 05:13 Miscellaneous Information 1 Q361D XX 05/08/17 17:30 (Chlorhexidine 2% Cloth) 3 pack Taper DAILY@04 TOP 05/09/17 04:00 05/05/18 03:59 05/13/17 04:00 (Chlorhexidine 2% Cloth) 3 pack UNSCH PRN TOP 05/08/17 17:30 (Eloisa-Colace) 1 tab BID PO 05/08/17 21:00 05/13/17 08:21 (Milk Of Magnesia Liq) 30 ml Q12H PRN PO 05/08/17 17:30 (Senokot) 17.2 mg Q12H PRN PO 05/08/17 17:30 (Dulcolax Supp) 10 mg DAILY PRN RECTAL 05/08/17 17:30 (Lactulose Liq) 30 ml DAILY PRN PO 05/08/17 17:30 (Zofran Odt) 8 mg TID PO 05/09/17 09:00 05/13/17 17:29 (Pravachol) 40 mg HS PO 05/09/17 21:00 05/13/17 20:04 (Apresoline Inj) 20 mg Q4H PRN IV PUSH 05/08/17 22:45 05/13/17 07:33 Labetalol HCl 10 mg 10 mg Q4H PRN IV PUSH 05/09/17 03:15 05/13/17 08:21 (Coumadin Consult Pharmacy) 0 ml @ 0 mls/hr UNSCH OTHER 05/09/17 18:00 (Xanax) 1 mg Q8H PRN PO 05/10/17 16:15 05/13/17 13:21 (Zoloft) 50 mg DAILY PO 05/10/17 15:00 05/13/17 08:21 (Zofran Inj) 4 mg Q4H PRN IV PUSH 05/10/17 21:45 05/10/17 22:20 Pantoprazole Sodium 40 mg 40 mg DAILY PO 05/13/17 09:00 05/13/17 08:21 (NS 1000 ml Inj) 1,000 ml @ 70 mls/hr [id number] IV 05/12/17 21:15 05/13/17 11:33 Warfarin Sodium 3 mg 3 mg DAILY@16 PO 05/13/17 16:00 05/13/17 16:00 (Rocephin Inj/NS Inj) 100 ml @ 200 mls/hr Q24H IV 05/13/17 15:00 05/13/17 15:05 (Catapres) 0.1 mg Q6H PRN PO 05/13/17 15:00 (Lopressor) 25 mg Q12HR PO 05/13/17 15:00 05/13/17 20:04 (Msir) 30 mg Q8H PRN PO 05/13/17 15:00 05/13/17 17:29 Urinary Catheter: Yes Assessment to: Continue Ruelas insert reason: Prolonged Immobilization A/P Problem List: (1) Stroke ICD Code: I63.9 Status: Acute (2) HTN (hypertension) ICD Code: I10 Status: Acute (3) E. coli UTI ICD Code: N39.0 Status: Acute (4) Hypokalemia ICD Code: E87.6 Status: Acute Assessment and Plan 52-year-old female with Right basal ganglia infarct and left pontine CVA Continue management per stroke protocol Status post TPA and currently on Coumadin. Monitor INR/PT Continue Lipitor Continue PT/OT/speech therapy as well as PMR Appreciate input from neurology . Brain MRI showed abnormal areas of diffusion signal left side of the randy and right basal ganglia. The pontine infarct is slightly larger than what it was on the . - Continue IVF and keep BP elevated for now. Continue to hold antihypertensive medications. Anxiety/depression Continue with Zoloft Hyperlipidemia On Lipitor Hypertension Continue to hold anti-hypertensive medications to allow permissive hypertension. History of hepatitis C Chronic Abdominal pain Abdominal x-ray showed a normal examination. Possibly secondary to UTI. Patient had a UA which grew Escherichia coli. I will start the patient on IV Rocephin empirically. Hypokalemia Likely due to nutritional deficiency. Replace orally and continue to monitor BMP. DVT prophylaxis: Heparin /Bilateral SCDs GI prophylaxis: PPI Discharge Planning Okay to transfer to the medical floor. Fernando Hart MD May 13, 2017 14:42
[2017-05-13] MEDS: METOPROLOL TARTRATE 25 MG TAB PO SCH ×2 (15:05→20:04)
[2017-05-13] MEDS: cefTRIAXone INJ 2,000 MG in SODIUM CHLORIDE 0.9% INJ 100 ML IV SCH (15:05)
[2017-05-13] MEDS: WARFARIN SOD 3 MG TAB PO SCH (16:00)
[2017-05-13] MEDS: MORPHINE SULFATE 30 MG TAB PO PRN (17:29)
[2017-05-13] MEDS: PRAVASTATIN SOD 40 MG TAB PO SCH (20:04)
[2017-05-13] MEDS ORDERED: POTASSIUM CHLORIDE 25 MEQ EFFERVESCENT TAB NG ONE (22:45)
[2017-05-14] VITALS (7 sets, daily range): BP systolic 144–195; BP diastolic 78–87; PULSE 100–116; RESP 18–20; TEMP 97.8–100.2; O2SAT 94–97
[2017-05-14] MEDS: MORPHINE SULFATE 30 MG TAB PO PRN ×3 (01:09→16:53)
[2017-05-14] MEDS: SODIUM CHLOR 0.9% 1000 ML INJ 1,000 ML IV SCH (01:10)
[2017-05-14 03:50] LABS: THROMBIN TIME FOR LA ND sec (13-19)
[2017-05-14] MEDS: RESP: ALBUTEROL 2.5 MG/IPRATROPIUM 0.5 MG NEB (SCH) NEB ×3 (03:50→16:49)
[2017-05-14 06:20] LABS: INTERNATIONAL NORMALIZED RATIO 2.5 RATIO; PROTHROMBIN TIME - PATIENT 29.3 SEC (9.8-11.6)
[2017-05-14] MEDS: ALPRAZolam 1 MG TAB PO PRN ×2 (07:06→15:30)
--- NOTE | 2017-05-14 07:48 | HHI.PR ---
Subjective Remarks sr sp tpa on coumadin Objective Vital Signs Date Time Temp Pulse Resp B/P Pulse Ox O2 Delivery O2 Flow Rate FiO2 05/14/17 03:15 100.0 100 18 144/87 97 05/14/17 00:23 105 05/13/17 23:41 140 05/13/17 23:25 Nasal Cannula 2.00 05/13/17 23:05 95 05/13/17 23:00 99.9 103 16 165/95 88 05/13/17 20:04 95 21 05/13/17 20:00 99.4 96 18 172/85 94 05/13/17 20:00 94 Room Air 05/13/17 20:00 96 05/13/17 18:00 92 05/13/17 16:00 98.6 91 27 167/84 98 05/13/17 16:00 90 05/13/17 14:00 96 05/13/17 12:00 96 05/13/17 12:00 99.4 97 21 170/80 100 05/13/17 10:00 96 05/13/17 08:00 96 05/13/17 08:00 99.5 96 21 167/72 95 I/O 05/13/17 05/13/17 05/13/17 05/14/17 05/14/17 05/14/17 07:00 15:00 23:00 07:00 15:00 23:00 Intake Total 942 ml 653 ml 825 ml 547 ml Output Total 225 ml 200 ml 250 ml 125 ml Balance 717 ml 453 ml 575 ml 422 ml Intake Oral 360 ml 200 ml 180 ml 120 ml IV Total 582 ml 453 ml 645 ml 427 ml Output Urine Total 225 ml 200 ml 250 ml 125 ml # Bowel Movements 1 2 1 Result Diagram: 05/12/17 0345 Objective Remarks vff better r droop now 0/5 r hand but 0/5 rue this am and rle now lifts off bed minimal moves left well speech strong no change Assessment and Plan Assessment and Plan imp cta negx2 mri acute r bg infarct and left pontine cva ldl ok b12 shot recheck trop fu echo blood cx start coumadin/sq hep hypercoag lab pend i dw med team 7/16/17 eeg neg echo pend sr inr pend dc plavix coumadin fu echo hob 30 degrees minimize sedatives narcotics\ 05/11/17 looks albit worse this am will fu with nurse later today inr 1.8 2mg today echo neg holter pend 05/12/17 stable but no movement r arm recheck mri inr 2.2 oob ok to rehab soon maybe tomorrow 05/13/17 inr 2.5 coumadin very weak on r from pontine cva some enlargement of cva on mri ok to run bp 140-160 now oob ok holter neg echo neg watch inr she could go to rehab now Rickie Culver MD May 14, 2017 07:48
[2017-05-14] MEDS: ONDANSETRON ODT 4 MG TAB PO SCH ×2 (09:00→13:18)
[2017-05-14] MEDS: PANTOPRAZOLE SOD 40 MG DELAYED RELEASE TAB PO SCH (09:00)
[2017-05-14] MEDS: DOCUSATE SODIUM 50 MG/SENNA 8.6 MG TAB PO SCH (09:00)
[2017-05-14] MEDS: SERTRALINE HCL 50 MG TAB PO SCH (09:01)
[2017-05-14] MEDS: SODIUM CHLORIDE 0.9% FLUSH 10 ML FLUSH IV FLUSH SCH (09:01)
[2017-05-14] MEDS: cloNIDine HCL 0.1 MG TAB PO PRN ×2 (09:04→15:38)
[2017-05-14] MEDS ORDERED: CLON.1 PO (14:42)
[2017-05-14] MEDS ORDERED: METO25TA3 PO (14:42)
[2017-05-14] MEDS ORDERED: COUM3TAB PO (14:42)
--- NOTE | 2017-05-14 14:44 | HHI.DCPOC ---
Discharge Care Plan Diagnosis: (1) Tobacco abuse (2) Hypokalemia (3) HTN (hypertension) (4) E. coli UTI (5) Anxiety (6) Stroke Goals to Promote Your Health * To prevent worsening of your condition and complications * To maintain your health at the optimal level Directions to Meet Your Goals Take your medications as prescribed Follow your dietary instruction Follow activity as directed Keep your appointments as scheduled Take your immunizations and boosters as scheduled If your symptoms worsen call your PCP, if no PCP go to Urgent Care Center or Emergency Room Smoking is Dangerous to Your Health. Avoid second hand smoke Call the 24-hour hour crisis hotline for domestic abuse at Fernando Hart MD May 14, 2017 14:44
[2017-05-14] MEDS ORDERED: CIPR250T2 PO (14:46)
--- NOTE | 2017-05-14 14:47 | HHI.DS ---
Discharge Summary Admission Date May 08, 2017 at 16:02 Discharge Date: May 14, 2017 Admitting Diagnosis stroke alert/TPA (1) Stroke ICD Code: I63.9 (2) HTN (hypertension) ICD Code: I10 (3) E. coli UTI ICD Code: N39.0 (4) Hypokalemia ICD Code: E87.6 Brief History - From Admission This is a 52-year-old female with a prior history of CVA that presented to the ED . It was reported that the patient had a two-hour history of right facial droop, right sided weakness and a headache. The patient also complained of dysarthria and incontinence. Her past medical history is significant for a previous CVA in 2003 with resultant only deficit of right-sided weakness requiring ambulation assistance utilizing a cane . A stroke alert was activated. The patient was seen by Dr. Culver NIH stroke score of 7. Imaging studies were performed -CT angiogram, and CT of the brain results and negative. TPA was initiated. Per ED physician, the patient had also complained of left lower quadrant pain, prior to initiation of tPA Hemoccult was obtained which resulted negative. Plans for CT of the abdomen and pelvis post TPA is pending. Critical care medicine was consulted. Upon my arrival the patient was receiving D5 half-normal saline, alert and oriented 3. No change from initial neurological exam, significant motor weakness right upper and lower extremity, with pronator drift right upper extremity, and complaints of a headache posterior, throbbing intermittently with a VAS score of 8/10. No complaints of photophobia, diplopia, visual story intact. Modifying Factors: None Associated Signs & Symptoms: Headache, right sided weakness and right facial droop, stroke alert Risk Factors: Previous stroke History PFSH Past Medical History Hx Anticoagulant Therapy: Yes (PLAVIX) Arthritis: Yes Asthma: No Blood Disorders: No Anxiety: Yes Depression: Yes Heart Rhythm Problems: No Cancer: No Cardiovascular Problems: No High Cholesterol: Yes Chemotherapy: No Chest Pain: Yes (Current especially with deep breath) Congestive Heart Failure: No COPD: No Cerebrovascular Accident: Yes Diabetes: No Diminished Hearing: No Endocrine: No Gastrointestinal Disorders: Yes (Gastritis, and stomach discomfort supposedly caused by blood pressure med) Genitourinary: No Hypertension: Yes (On medication) Immune Disorder: Yes (Lupus, porphyria cuteanous tarda) Implanted Vascular Access Dvce: Yes Musculoskeletal: Yes (Spine and arthritis problems) Neurologic: Yes (Central Tremors) Psychiatric: Yes (anxiety and depression) Reproductive: No Respiratory: No Integumentary: Yes (PORPHYRIA CUTANEATARDA METABOLIC PHOTO SENSATIVITY) Migraines: Yes Radiation Therapy: No Seizures: No Sickle Cell Disease: No Sleep Apnea: No Thyroid Disease: No Past Surgical History Abdominal Surgery: Yes (INGUINAL HERNIA REPAIR) AICD: No Arteriovenous Shunt: No Body Medical Devices: shouldder plates and screws along with a hernia mesh Section: Yes Gynecologic Surgery: Yes (HYSTERECTOMY, ) Hysterectomy: Yes Insulin Pump: No Joint Replacement: No Pacemaker: No Other Surgery: Yes (R shoulder ORIF April 03) Social History Alcohol Use: No Tobacco Use: Yes (10/27 PPD) Substance Use: No Allergies-Medications Allergies-Medications (Allergen,Severity, Reaction): Coded Allergies: Bactrim (Verified Allergy, Severe, SKIN PROBLEMS, 03/06/17) Reported Meds & Prescriptions Reported Meds & Active Scripts Active Reported Trazodone (Trazodone HCl) 150 Mg Tab 150 Mg PO HS Simvastatin 20 Mg Tab 20 Mg PO DAILY Zoloft (Sertraline HCl) 50 Mg Tab 50 Mg PO DAILY Potassium Chloride ER (Potassium Chloride) 10 Meq Cap 10 Meq PO BID Zofran (Ondansetron HCl) 8 Mg Tab 8 Mg PO TID Morphine ER (Morphine Sulfate) 30 Mg Tab 30 Mg PO Q8H Robaxin (Methocarbamol) 500 Mg Tab 500 Mg PO TID Gabapentin 600 Mg Tab 600 Mg PO TID [Lidex] 1 Applic TP DIRECTED [Gentamicin Oint] 1 Applic .XX PRN Plavix (Clopidogrel Bisulfate) 75 Mg Tab 75 Mg PO DAILY Wellbutrin SR 12 HR (Bupropion HCl) 150 Mg Tab 350 Mg PO DAILY Xanax (Alprazolam) 2 Mg Tab 2 Mg PO Q6HR PRN ROS Review of Systems Except as stated in HPI: all other systems reviewed are Neg CBC/BMP: 05/12/17 0345 Significant Findings Laboratory Tests Test 05/12/17 05/12/17 05/13/1717 03:45 04:19 04:16 04:05 Potassium Level 3.2 MEQ/L (3.5-5.1) Chloride Level 111 MEQ/L (98-107) Random Glucose 152 MG/DL (74-106) Calcium Level 7.5 MG/DL (8.5-10.1) Prothrombin Time 25.0 SEC 20.4 SEC 29.3 SEC (9.8-11.6) (9.8-11.6) (9.8-11.6) PE at Discharge GENERAL: NAD and speaks with some slurred speech SKIN: Warm and dry. HEAD: Normocephalic. EYES: No scleral icterus. No injection or drainage. NECK: Supple, trachea midline. No JVD or lymphadenopathy. CARDIOVASCULAR: Regular rate and rhythm without murmurs, gallops, or rubs. RESPIRATORY: Breath sounds equal bilaterally. No accessory muscle use. GASTROINTESTINAL: Abdomen soft, , diffusely tender to palpation, bowel sounds present. No rebound tenderness. MUSCULOSKELETAL: No cyanosis, or edema. Muscle strength in the right upper extremity is 0/5 and in the right lower extremity is 1/5 BACK: Nontender without obvious deformity. No CVA tenderness. Pt update on day of discharge Denies cp/sob. Denies abdominal pain. No fevers, chills. Cleared by neurology for DC. Pt Condition on Discharge: Stable Discharge Disposition: Rehab Inpatient Discharge Time: > 30 minutes Discharge Instructions DIET: Follow Instructions for: Heart Healthy Diet Speech Therapy-Diet Recommends: Mechanical Soft, Chopped Meat w/Gravy Activities you can perform: See Additionl Instruction, Continue Bedrest Other Activity Instructions: as per PT Follow up Referrals: PCP Follow-up - 2 Weeks New Medications: Ciprofloxacin (Ciprofloxacin) 250 Mg Tab 250 MG PO BID Infection #6 Ref 0 TAB Clonidine (Catapres) 0.1 Mg Tab 0.1 MG PO Q6H PRN SYS BP GREATER THAN 160 MMHG #30 TAB Metoprolol Tartrate (Metoprolol Tartrate) 25 Mg Tab 25 MG PO Q12HR Blood Pressure Management #62 TAB Warfarin (Coumadin) 3 Mg Tab 3 MG PO DAILY@16 Blood Clot Prevention #30 TAB Continued Medications: Alprazolam (Xanax) 2 Mg Tab 2 MG PO Q6HR PRN ANXIETY Ref 0 TAB Bupropion HCl ER 12 HR (Wellbutrin SR 12 HR) 150 Mg Tab 350 MG PO DAILY Control Depression Ref 0 TAB Clopidogrel (Plavix) 75 Mg Tab 75 MG PO DAILY Blood Clot Prevention #30 Ref 0 TAB Gabapentin (Gabapentin) 600 Mg Tab 600 MG PO TID #90 Ref 0 TAB Methocarbamol (Robaxin) 500 Mg Tab 500 MG PO TID Muscle Spasm Ref 0 TAB Morphine ER (Morphine ER) 30 Mg Tab 30 MG PO Q8H Pain Management Ref 0 TAB Ondansetron (Zofran) 8 Mg Tab 8 MG PO TID Nausea/Vomiting Ref 0 TAB Sertraline (Zoloft) 50 Mg Tab 50 MG PO DAILY #30 Ref 0 TAB Simvastatin (Simvastatin) 20 Mg Tab 20 MG PO DAILY Cholesterol Management #30 Ref 0 TAB Trazodone (Trazodone) 150 Mg Tab 150 MG PO HS Control Depression #30 Ref 0 TAB Discontinued Medications: Potassium Chloride ER (Potassium Chloride ER) 10 Meq Cap 10 MEQ PO BID Electrolyte Replacement #60 Ref 0 CAP ([Gentamicin Oint]) 1 APPLIC .XX PRN ([Lidex]) 1 APPLIC TP DIRECTED Fernando Hart MD May 14, 2017 14:47
[2017-05-14] MEDS: WARFARIN SOD 3 MG TAB PO SCH (15:30)
[2017-05-14] MEDS: cefTRIAXone INJ 2,000 MG in SODIUM CHLORIDE 0.9% INJ 100 ML IV SCH (15:31)
[2017-05-14] MEDS ORDERED: TRAZ1TAB45 PO (18:03)
== END 2017-05-14 17:25 | DRG 62 ==
LOC: NEPE 14:53 → NEDA 16:02 → N03B 17:44 → N03A 05-11 21:14 → N04A 05-13 23:03
PROVIDERS: ADMIT Hospitalist; ATTEND Hospitalist
DX: I63.22 Cerebral infarction due to unspecified occlusion or stenosis of basilar artery (principal); E80.1 Porphyria cutanea tarda; G81.91 Hemiplegia, unspecified affecting right dominant side; N39.0 Urinary tract infection, site not specified; I10 Essential (primary) hypertension; R13.10 Dysphagia, unspecified; F32.9 Major depressive disorder, single episode, unspecified; B19.20 Unspecified viral hepatitis C without hepatic coma; F17.210 Nicotine dependence, cigarettes, uncomplicated; G43.909 Migraine, unspecified, not intractable, without status migrainosus; F41.9 Anxiety disorder, unspecified; E78.00 Pure hypercholesterolemia, unspecified; N39.498 Other specified urinary incontinence; E78.5 Hyperlipidemia, unspecified; E87.6 Hypokalemia; B96.20 Unspecified Escherichia coli [E. coli] as the cause of diseases classified elsewhere; G89.4 Chronic pain syndrome; R48.2 Apraxia; R29.810 Facial weakness; R47.1 Dysarthria and anarthria; R29.707 NIHSS score 7; I63.29 Cerebral infarction due to unspecified occlusion or stenosis of other precerebral arteries; Z79.01 Long term (current) use of anticoagulants
CPT/HCPCS: 70450; 70496; 70498; 70551; 70553; 74000; 74176; 80048; 80061; 80307; 81001; 81240; 81241; 82435; 82550; 82565; 82607; 82746; 82947; 83690; 83735; 83921; 84100; 84132; 84295; 84425; 84439; 84443; 84484; 84520; 84702; 85025; 85240; 85300; 85303; 85306; 85384; 85598; 85610; 85613; 85652; 85730; 86038; 86039; 86077; 86140; 86147; 86592; 86850; 86870; 86880; 86900; 86901; 86920; 86922; 87040; 87077; 87086; 87186; 87641; 93005; 93225; 93226; 93306; 94640; 94664; 95819; 96374; 96375; A9579; C9113; J0360; J0696; J1644; J2060; J2405; J2997; J3010; J7030; J7040; Q9967

== ENCOUNTER 2017-05-17 09:35 | Inpatient (IN) | payer MEDICARE, OTHER ==
[2017-05-17] VITALS (7 sets, daily range): BP systolic 141–173; BP diastolic 70–84; PULSE 78–97; RESP 21–22; TEMP 97–99.3; O2SAT 97–99
[~2017-05-17] VITALS: Ht 167.6 cm; Wt 68.7 kg
[~2017-05-17 09:35] MED LIST changes: +CIPR250T2 PO; +CLON.1 PO; +COUM3TAB PO; -GENTAMICIN OINT; -LIDEX TP; +METO25TA3 PO; -POTA10CA PO; -TRAZ150T75 PO; +TRAZ1TAB45 PO
[2017-05-17] MEDS ORDERED: XANA1TAB2 PO (09:37)
[2017-05-17] MEDS ORDERED: PRAV40TA PO (09:37)
[2017-05-17] MEDS ORDERED: NEUR300C PO (09:37)
[2017-05-17] MEDS ORDERED: IPRASOL NEB (09:37)
[2017-05-17] MEDS ORDERED: Furosemide IV PUSH (09:37)
[2017-05-17] MEDS ORDERED: ZOLO50TA PO (09:37)
[2017-05-17] MEDS ORDERED: PANT40TA3 PO (09:37)
[2017-05-17] MEDS ORDERED: BUPR150CR PO (09:37)
[2017-05-17] MEDS ORDERED: MSIR15 PO (09:37)
[2017-05-17] MEDS ORDERED: FERR325T20 PO (09:37)
[2017-05-17] MEDS ORDERED: METO25TA3 PO (09:37)
[2017-05-17] MEDS ORDERED: CLON.1 PO (09:37)
[2017-05-17] MEDS ORDERED: ACET1TAB86 PO (09:37)
[2017-05-17] MEDS ORDERED: PLAV75TA29 PO (09:37)
[2017-05-17] MEDS ORDERED: TRAZ50TA12 PO (09:38)
[2017-05-17] MEDS ORDERED: guaiFENesin/DEXTROMETHORPHAN 200 MG/20 MG/10 ML CUP PO PRN (11:15)
[2017-05-17] MEDS ORDERED: Vancomycin Consult Pharmacy 1 EA OTHER SCH (11:15)
[2017-05-17] MEDS ORDERED: ONDANSETRON HCL 4 MG/2 ML VIAL IV PRN (11:15)
[2017-05-17] MEDS ORDERED: VANCOMYCIN INJ 1,000 MG in SODIUM CHLOR 0.9% 250 ML INJ 250 ML IV ONE (11:15)
[2017-05-17] MEDS ORDERED: ACETAMINOPHEN 325 MG TAB PO PRN (11:15)
[2017-05-17] MEDS ORDERED: SODIUM CHLORIDE 0.9% FLUSH 10 ML FLUSH IV FLUSH PRN (11:15)
[2017-05-17] MEDS ORDERED: RESP: ALBUTEROL 2.5 MG/IPRATROPIUM 0.5 MG NEB (PRN) INH (11:15)
--- NOTE | 2017-05-17 11:50 | HHI.HP ---
HPI Service [facility] Primary Care Physician Unknown Admission Diagnosis Diagnoses: Chief Complaint: Respiratory failure Travel History International Travel<30 Days: No Contact w/Intl Traveler <30 Da: No Sepsis Criteria SIRS Criteria (2 or more): Temp > 100.9 or < 96.8, Heart rate over 90, RR > 20 or PaCO2 < 32 Sepsis Criteria (SIRS+source): Infect source susp/known History of Present Illness 52-year-old female with a medical history significant for hypertension, hyperlipidemia, lupus, CVA who initially presented to the hospital on 05/08/17 with right sided weakness. The patient was found to have a right basal ganglia infarct and left pontine CVA. She is status post TPA. She was admitted to [place] for comprehensive rehabilitation. However for the past couple of days she has been having fevers and her imaging were consistent for pneumonia. The patient was started on cefepime. However today her symptoms worsen with recurrent fevers, tachypnea, requiring more oxygen. She also reports increasing sputum production but has not been able to give sample. The chart reviewed extensively. Discuss with rehabilitation physician, Dr. Espana. I recommended transfer to the [facility] for worsening respiratory status and sepsis. Review of Systems Constitutional: COMPLAINS OF: Fever, Chills Respiratory: COMPLAINS OF: Cough, Sputum production, Shortness of breath Cardiovascular: DENIES: Chest pain Gastrointestinal: DENIES: Nausea, Vomiting Neurologic: COMPLAINS OF: Localized weakness Psychiatric: DENIES: Anxiety, Confusion, Mood changes Except as stated in HPI: all other systems reviewed are Neg Past Family Social History Past Medical History hypertension, hyperlipidemia, lupus, CVA Anxiety Depression Past Surgical History Hernia repair section, hysterectomy, right shoulder ORIF Reported Medications Reported Meds & Active Scripts Active Trazodone (Trazodone HCl) 50 Mg Tab 150 Mg PO HS 1 Days Zoloft (Sertraline HCl) 50 Mg Tab 50 Mg PO DAILY 1 Days Morphine IR (Morphine Sulfate) 15 Mg Tab 15 Mg PO Q6HR PRN 1 Days Pravachol (Pravastatin) 40 Mg Tab 40 Mg PO DAILY 1 Days Pantoprazole (Pantoprazole Sodium) 40 Mg Tab 40 Mg PO DAILY 1 Days Metoprolol Tartrate 25 Mg Tab 25 Mg PO Q12HR 1 Days Duoneb (Ipratropium-Albuterol Neb) 0.5-2.5 Mg/3 Ml Neb 1 Ampule NEB Q4HR NEB PRN 1 Days Neurontin (Gabapentin) 300 Mg Cap 600 Mg PO Q8H 1 Days [Furosemide] 40 MG/4 ML Inj 40 Mg IV PUSH DAILY 1 Days Ferosul (Ferrous Sulfate) 325 Mg Tablet 325 Mg PO BID@12,17 1 Days Plavix (Clopidogrel Bisulfate) 75 Mg Tab 75 Mg PO DAILY 1 Days Catapres (Clonidine) 0.1 Mg Tab 0.1 Mg PO Q6H PRN 1 Days Wellbutrin SR 12 HR (Bupropion HCl) 150 Mg Tab 150 Mg PO BID 1 Days Xanax (Alprazolam) 1 Mg Tab 1 Mg PO Q8H PRN 1 Days Eq Acetaminophen (Acetaminophen) 325 Mg Tab 650 Mg PO Q4H PRN 1 Days Ciprofloxacin (Ciprofloxacin HCl) 250 Mg Tab 250 Mg PO BID Coumadin (Warfarin) 3 Mg Tab 3 Mg PO DAILY@16 Reported Zofran (Ondansetron HCl) 8 Mg Tab 8 Mg PO TID Morphine ER (Morphine Sulfate) 30 Mg Tab 30 Mg PO Q8H Robaxin (Methocarbamol) 500 Mg Tab 500 Mg PO TID Allergies: Coded Allergies: Bactrim (Verified Allergy, Severe, SKIN PROBLEMS, 05/14/17) Flu Vaccine (Verified Allergy, Severe, Respiratory Failure, 05/14/17) Family History Brother with history of CVA Mother and brother with diabetes. Social History Lifelong tobacco abuser. Smokes half a pack per day. Reports she is quitting No alcohol Physical Exam Physical Exam GENERAL: Patient appear older than stated age, tachypneic. SKIN: No rashes, ecchymoses or lesions. Cool and dry. EYES: Pupils equal round and reactive. Extraocular motions intact. No scleral icterus. No injection or drainage. ENT: Nose without drainage. Uvula midline. Airway patent. NECK: Trachea midline. Supple, nontender. CARDIOVASCULAR: Regular rate and rhythm without murmurs, gallops, or rubs. RESPIRATORY: Tachypneic with some accessory muscle use. Diminished breath sounds bilaterally. Diffuse faint rhonchi. GASTROINTESTINAL: Abdomen soft, non-tender, nondistended. No guarding. MUSCULOSKELETAL: Extremities without clubbing, cyanosis, or edema. No joint tenderness, effusion, or edema noted. No calf tenderness. Negative Homans sign bilaterally. NEUROLOGICAL: Awake and alert. Facial droop noted. Right upper and lower extremity with flaccid paralysis. Speech is slow Assessment and Plan Problem List: (1) Respiratory failure ICD Code: J96.90 Status: Acute (2) Sepsis due to pneumonia ICD Code: J18.9 Status: Acute (3) HTN (hypertension) ICD Code: I10 Status: Acute (4) E. coli UTI ICD Code: N39.0 Status: Acute Assessment and Plan 52-year-old female status post basal ganglia and left pontine CVA with worsening respiratory failure secondary to pneumonia and sepsis. Patient is being admitted from [facility] to ICU for treatment. Sepsis due to pneumonia: Chest x-ray today with worsening diffuse lung disease. Fever up to 102.2, tachypneic, tachycardic, requiring increased amount of oxygen. Blood gas consistent with hypoxemia. Treat for HCAP. Start broad-spectrum antibiotics with Zosyn and vancomycin. Consult infectious disease for antibiotics management. Consult pulmonology Scheduled DuoNeb treatments every 6 hours and when necessary. Solu-Medrol 40 mg IV every 12 hours Supplemental oxygen. BiPAP as needed. Right basal ganglia infarct and left pontine CVA Status post TPA and currently on Coumadin and Plavix. Monitor INR/PT- INR today 3.1 today, hold Coumadin today. Plan to restart tomorrow. Continue Lipitor Microcytic Anemia, acute on chronic- Hemoglobin 7.5 s/p 1 unit of PRBC-->9.7>> 7.8: No active source of bleeding identified. Status post IV Venofer 1 Continue with by mouth Ferrous sulfate twice a day Repeat H&H in AM. Hemoccult stool Urinary tract infection: E coli UTI. Abx as above. Anxiety/depression Continue with Zoloft Hyperlipidemia On Pravastatin Hypertension Continue Metoprolol 25 mg Q12H History of hepatitis C Chronic DVT prophylaxis: On Coumadin Discussed Condition With RN, Dr. Espana Physician Certification 2 Midnight Certification Type: Admission for Inpatient Services Order for Inpatient Services The services are ordered in accordance with Medicare regulations or non- Medicare payer requirements, as applicable. In the case of services not specified as inpatient-only, they are appropriately provided as inpatient services in accordance with the 2-midnight benchmark. Estimated LOS (days): 5 days is the estimated time the patient will need to remain in the hospital, assuming treatment plan goals are met and no additional complications. Post-Hospital Plan: Not yet determined Dolores Malagon MD May 17, 2017 11:50
[2017-05-17] MEDS ORDERED: RESP: ALBUTEROL 2.5 MG/IPRATROPIUM 0.5 MG NEB (SCH) INH (12:00)
[2017-05-17] MEDS: FERROUS SULFATE 325 MG (65 MG ELEMENTAL IRON) TAB PO SCH ×2 (13:03→17:04)
[2017-05-17] MEDS: PIPERACIL-TAZO 4.5 GM PREMIX 100 ML IV SCH ×2 (13:03→17:33)
--- NOTE | 2017-05-17 13:06 | MB ---
cc: Ekaterina GARCIA DATE OF CONSULTATION: 05/17/2017 REASON FOR CONSULTATION: HISTORY OF PRESENT ILLNESS: Ms. Fam is a 52-year-old white female with a history of a prior stroke in 2003 and presentation on this visit 05/08 with an acute right-sided stroke with hemiparesis on the right seen initially by Dr. Culver. She did receive fibrinolytic therapy, was stabilized and then transferred to [place]. Over the last few days, she has had increasing congestion, fever. CT scan done on the revealed increasing alveolar infiltrates and larger effusions, and this morning she became quite hypoxic and was transferred to intensive care. Currently easily arouses oriented sat is 99% on a partial non-rebreather mask. She does have a prior history of smoking right up to the time of admission but has not previously been treated for COPD. She denies previous pneumonia. There is a questionable history of lupus but when I ask her specifically there has been no treatment for this in the past. She has not previously had pneumonia that she is relating today or significant prior pulmonary disease. She has been fully anticoagulated and her INR today was 3.1. The scan on 05/[address] without contrast and there was no pulmonary embolism. At the present time, she is easily aroused and oriented to place and time but has difficulty answering specific questions. She says she is not in pain. She does not appear to be short of breath. PAST MEDICAL HISTORY: Additional past history includes: 1. Hypertension. 2. Hyperlipidemia. 3. Anxiety. 4. Hernia repair in the past. 5. Chronic pain syndrome related to arthritis. 6. She has had right shoulder surgery in the past. 7. She has had a section. 8. Hysterectomy. 9. She also has porphyria, cutaneous. ALLERGIES: 1. BACTRIM. 2. FLU VACCINE. SOCIAL HISTORY: Really not clear to me other than the fact that she smoked right up to the time of admission. Denies any drug use or alcohol use. FAMILY HISTORY: When asked about family, she says she has grown children. MEDICATIONS: Medications are reviewed in the electronic medical record. PHYSICAL EXAMINATION: GENERAL: Frail-appearing white female. VITAL SIGNS: Temperature 102 earlier this morning, currently 98. Pulse is 90 to 100. Respirations 22. 02 saturation currently 99% on a partial non-rebreather. HEAD, EYES, EARS, NOSE, THROAT: The sclerae are nonicteric. NECK: The neck veins are flat. CHEST: Diffuse congestion with rhonchi. No audible wheezing. HEART: Regular rhythm. No harsh murmur. ABDOMEN: Soft. EXTREMITIES: She has no peripheral edema or calf tenderness. No cyanosis of the nail beds. IMAGING STUDIES: Chest x-ray this morning: Increasing infiltrates. LABORATORY DATA: White count this morning 8800, hemoglobin 7.8, platelet count 284,000. Arterial blood gas earlier this morning on 6 liters: Her p02 was 56 down from 77 earlier, pH 7.4, pC02 44. INR 3.1. BUN and creatinine normal. Albumin 1.4. DISCUSSION: Ms. Fam has developed bilateral infiltrates. In light of the recent stroke, this certainly is suspicious for a hospital-acquired aspiration. She received Zosyn and Vancomycin this morning and infectious disease has been consulted for further suggestions and recommendations regarding antibiotics. Blood cultures have been obtained. A sputum culture is ordered but she has not been able to produce that yet. She is also a smoker right up to the time of admission, probably has underlying COPD, so will continue aerosol treatments and IV corticosteroids. If respirations are more labored or it is difficult to oxygenate her, will try her on a BiPAP. Follow up chest x-ray tomorrow. GIOVANNY is sent in light of the questionable history of lupus. Further diagnostic and/or therapeutic intervention will depend on her response and ongoing clinical course. RMD PATEL Estrada/JOSÉ MIGUEL /12:26 PM /12:39 PM
[2017-05-17] MEDS: ALPRAZolam 1 MG TAB PO PRN (15:01)
--- NOTE | 2017-05-17 15:03 | PD.CONS ---
History of Present Illness Service Infectious disease Consult Requested By Dr Malagon Reason for Consult Evaluate patient with pneumonia, worsening Primary Care Physician Unknown Diagnoses: History of Present Illness Patient seen and examined. Records reviewed. Patient is a 52-year-old female, initially admitted at [place] May 08 and she was diagnosed to have CVA. She had mostly right sided involvement. She went to [facility] on May 14. Apparently at [facility] she started having fevers and her chest x-ray showed evidence of pneumonia. Patient was ever has had some low-grade fevers even on her first hospitalization going back to lie 18. There was a urinalysis and culture from May 11 that had Escherichia coli. Patient was started on cefepime. Her fevers continue, and she developed increasing oxygen requirement, so she was transferred to the main hospital for further evaluation and treatment. Patient currently is on a facemask. She has some coughing, but has difficulty bringing up any sputum. She has some occasional sternal pain when she coughs. There's been no nausea or vomiting or any problems swallowing. She is on mechanical soft diet. Her WBC is normal. Her hemodynamics are stable. Infectious disease consultation has been requested to evaluate the patient. Review of Systems Constitutional: COMPLAINS OF: Fever, Chills Eyes: DENIES: Eye pain Ears, nose, mouth, throat: DENIES: Nasal discharge, Oral lesions, Throat pain Respiratory: COMPLAINS OF: Cough, Sputum production, Shortness of breath Cardiovascular: COMPLAINS OF: Chest pain, DENIES: Palpitations Gastrointestinal: COMPLAINS OF: Abdominal pain, Difficulty Swallowing, DENIES : Diarrhea, Nausea, Vomiting Musculoskeletal: DENIES: Back pain Integumentary: DENIES: Pruritus, Rash Neurologic: COMPLAINS OF: Localized weakness, DENIES: Headache Psychiatric: DENIES: Hallucinations Past Family Social History Allergies: Coded Allergies: Bactrim (Verified Allergy, Severe, SKIN PROBLEMS, 05/14/17) Flu Vaccine (Verified Allergy, Severe, Respiratory Failure, 05/14/17) Past Medical History Hypertension Hyperlipidemia Lupus CVA with R sided weakness Anxiety Depression Past Surgical History Hernia repair section Hysterectomy Right shoulder ORIF Active Ordered Medications Tylenol Albuterol Xana Wellbutrin Plavix Ferrous sulfate Robitussin DM Solumedrol Lopressor Zofran Protonix Zosyn Pravachol Zoloft Vancomycin Coumadin Family History Noncontributory to current ID problem Social History Lifelong tobacco abuser. Smokes half a pack per day. No alcohol No illicit drugs Physical Exam Vital Signs Vital Signs Date Time Temp Pulse Resp B/P Pulse Ox O2 Delivery O2 Flow Rate FiO2 05/17/17 14:18 97 Partial Rebreather 12.00 70 05/17/17 11:00 78 05/17/17 11:00 99 Non-Rebreather 15.00 05/17/17 11:00 97.0 80 22 141/70 99 Physical Exam GENERAL: Patient is a thin, well-developed CF, awake and alert, looks comfortable at rest, on FM. SKIN: Warm and dry. No generalized rash, no ecchymoses and no evidence of embolic lesions. HEAD: Atraumatic. Normocephalic. No temporal wasting, or tenderness. EYES: Wimer conjunctiva. No petechia or hemorrhage. Pupils equal, round and reactive to light. Extraocular movements full and intact. No scleral icterus. No injection or drainage. EARS, NOSE AND THROAT: Nose without bleeding or purulent nasal discharge. No sinus tenderness. Mucous membranes pink and moist. No oral lesions noted. No exudate. No oral thrush. Has decreased nasolabial fold on R NECK: Trachea midline. Supple and not tender, no meningeal signs CARDIOVASCULAR: Regular rate and rhythm. No murmurs, rubs or gallops heard RESPIRATORY: Coarse BS bilaterally with some rhonchi on R, and decreased at bases, seem worse on L than on the R ABDOMEN: Soft, nondistended, bowel sounds present and normoactive, with tenderness on R side. No guarding. No rebound. No organomegaly. EXTREMITIES: No clubbing, cyanosis, or edema. No joint effusion. No calf tenderness. Well perfused and warm. NEUROLOGICAL: Awake and alert. Has decreased nasolabial fold on R, full EOM. RUE and RLE 0/5 motor strength, 5/5 on L side. Babinski R foot. PSYCHIATRIC: Normal affect, calm and cooperative. LINE: No evidence of infection : Ruelas in place, urine with some sediment Laboratory Labs and cultures done at [facility] has been reviewed by me WBC normal Creatinine normal LFT ok UA (+) pyuria UC 05/14 with E coli BC negative CXR and CT chest reviewed by me Imaging CT and CXR done while at [place] and during her last admission reviewed by me Assessment and Plan Assessment and Plan IMPRESSION HCAP, patient has been in hospital setting since 05/08, had CVA with R sided involvement, dysarthria, and high risk for aspiration UTI, E coli Recent CVA Known Lupus Smoker, prob with COPD RECOMMENDATION Agree with current Abx: Zosyn and Vancomycin - to cover hospital pathogens Follow C/S Try to get sputum C/S Monitor temps Monitor progress Will determine course of Abx once work-up completed I will follow with you Thank you for this consultation Discussed Condition With D/W RNBeba Anthony MD May 17, 2017 15:03
[2017-05-17] MEDS: RESP: ALBUTEROL 2.5 MG/IPRATROPIUM 0.5 MG NEB (SCH) INH ×2 (16:13→20:40)
[2017-05-17] MEDS: ACETAMINOPHEN/HYDROcodone 325 MG/5 MG TAB PO PRN (18:24)
[2017-05-17] MEDS: SODIUM CHLORIDE 0.9% FLUSH 10 ML FLUSH IV FLUSH SCH (20:53)
[2017-05-17] MEDS: buPROPion HCL 150 MG SUSTAINED RELEASE TAB PO SCH (20:53)
[2017-05-17] MEDS: VANCOMYCIN INJ 1,250 MG in SODIUM CHLOR 0.9% 250 ML INJ 250 ML IV SCH (20:53)
[2017-05-17] MEDS: METOPROLOL TARTRATE 25 MG TAB PO SCH (20:53)
[2017-05-17] MEDS ORDERED: methylPREDNISolone SOD SUCC 40 MG/1 ML VIAL IV SCH (22:00)
[2017-05-17] MEDS: GABAPENTIN 300 MG CAP PO SCH (22:35)
[2017-05-17] MEDS: traZODone HCL 50 MG TAB PO SCH (22:35)
[2017-05-17] MEDS ORDERED: CHLORHEXIDINE GLUCONATE 2 % 1 PACK (2 CLOTHS)(extra cloths) TOPICAL PRN (23:00)
[2017-05-18] VITALS (9 sets, daily range): BP systolic 152–186; BP diastolic 80–100; PULSE 81–92; RESP 20–22; TEMP 98.1–98.5; O2SAT 88–99
[2017-05-18] MEDS: RESP: ALBUTEROL 2.5 MG/IPRATROPIUM 0.5 MG NEB (SCH) INH ×6 (00:18→20:24)
[2017-05-18] MEDS: PIPERACIL-TAZO 4.5 GM PREMIX 100 ML IV SCH ×5 (00:21→23:44)
[2017-05-18] MEDS: methylPREDNISolone SOD SUCC 40 MG/1 ML VIAL IV SCH ×5 (00:21→23:44)
[2017-05-18] MEDS: ALPRAZolam 1 MG TAB PO PRN ×2 (03:17→14:02)
[2017-05-18] MEDS: ACETAMINOPHEN/HYDROcodone 325 MG/5 MG TAB PO PRN ×3 (03:17→18:43)
[2017-05-18] MEDS: CHLORHEXIDINE GLUCONATE 2 % 1 PACK (2 CLOTHS)(taper/protocol) TOPICAL SCH (04:00)
[2017-05-18] MEDS: GABAPENTIN 300 MG CAP PO SCH ×3 (05:29→21:01)
[2017-05-18 06:35] LABS: AUTOMATED NEUTROPHIL # 10.3 TH/MM3 (1.8-7.7); BASOPHIL % 0.1 % (0.0-2.0); HEMATOCRIT 28.7 % (35.0-46.0); HEMO FLAGS DIFF FINAL; LYMPH % 6.8 % (9.0-44.0); LYMPHOCYTE # 0.8 TH/MM3 (1.0-4.8); MEAN CORPUSCULAR HEMOGLOBIN 23.4 PG (27.0-34.0); MEAN CORPUSCULAR HGB CONC 32.1 % (32.0-36.0); MONO % 2.9 % (0.0-8.0); NEUT % 90.2 % (16.0-70.0); PLATELET COUNT 337 TH/MM3 (150-450); RED BLOOD COUNT 3.93 MIL/MM3 (4.00-5.30); RED CELL DISTRIBUTION WIDTH 20.7 % (11.6-17.2); WHITE BLOOD COUNT 11.4 TH/MM3 (4.0-11.0)
[2017-05-18 06:41] LABS: BICARBONATE 31.5 MEQ/L (21.0-32.0); POTASSIUM 3.6 MEQ/L (3.5-5.1)
--- NOTE | 2017-05-18 09:12 | RADRPT ---
EXAM DATE/TIME: 05/18/2017 07:58 [facility] COMPARISON: No previous studies available for comparison. INDICATIONS : Shortness of breath. MEDICAL HISTORY : Hypertension. Hypercholesterolemia. SURGICAL HISTORY : Hysterectomy. ENCOUNTER: Initial ACUITY: 1 day PAIN SCORE: Non-responsive. LOCATION: Bilateral chest FINDINGS: I have no prior studies for comparison. Patchy airspace disease is present in both lungs with air br onchograms in the left lower lobe. Trace effusion is present in the right. Cardiac silhouette is pr ominent. CONCLUSION: Significant consolidation changes with air bronchograms left base and trace effusion on the right. I have no prior studies for comparison. Olaf Serrano MD FACR on May 18, 2017 at 9:08 Board Certified Radiologist. This report was verified electronically.
[2017-05-18] MEDS: PRAVASTATIN SOD 40 MG TAB PO SCH (09:30)
[2017-05-18] MEDS: SERTRALINE HCL 50 MG TAB PO SCH (09:30)
[2017-05-18] MEDS: CLOPIDOGREL 75 MG TAB PO SCH (09:30)
[2017-05-18] MEDS: PANTOPRAZOLE SOD 40 MG DELAYED RELEASE TAB PO SCH (09:30)
[2017-05-18] MEDS: buPROPion HCL 150 MG SUSTAINED RELEASE TAB PO SCH ×2 (09:30→21:01)
[2017-05-18] MEDS: VANCOMYCIN INJ 1,250 MG in SODIUM CHLOR 0.9% 250 ML INJ 250 ML IV SCH ×2 (09:30→21:00)
[2017-05-18] MEDS: METOPROLOL TARTRATE 25 MG TAB PO SCH ×2 (09:30→21:00)
[2017-05-18] MEDS: SODIUM CHLORIDE 0.9% FLUSH 10 ML FLUSH IV FLUSH SCH ×2 (09:31→21:00)
--- NOTE | 2017-05-18 10:22 | HHI.PR ---
Subjective Remarks Patient reports her breathing is slightly better today. On partial non rebreather. Discussed with RN. Patient seen by pulmonology who okayed the use of high flow nasal cannula but order not in yet. Patient states she is hungry and wants to eat. Objective Vitals Vital Signs Date Time Temp Pulse Resp B/P Pulse Ox O2 Delivery O2 Flow Rate FiO2 05/18/17 08:16 99 Partial Rebreather 12.00 05/18/17 07:00 98.2 85 22 152/80 97 05/18/17 07:00 85 05/18/17 07:00 97 Partial Non-Rebreather 12.00 05/18/17 03:27 98.5 91 20 163/80 95 05/18/17 03:27 92 05/17/17 23:32 79 05/17/17 23:32 99.0 78 21 158/82 98 05/17/17 20:41 98 Partial Rebreather 12.00 05/17/17 19:41 98 Partial Non-Rebreather 12.00 05/17/17 19:41 99.3 97 22 153/84 98 05/17/17 19:00 97 05/17/17 15:00 97.3 90 22 173/81 98 05/17/17 15:00 87 05/17/17 14:18 97 Partial Rebreather 12.00 70 05/17/17 11:00 78 05/17/17 11:00 99 Non-Rebreather 15.00 05/17/17 11:00 97.0 80 22 141/70 99 I/O 05/17/17 05/17/17 05/17/17 05/18/17 05/18/17 05/18/17 07:00 15:00 23:00 07:00 15:00 23:00 Intake Total 690 ml 750 ml Output Total 1500 ml 650 ml Balance -810 ml 100 ml Intake Oral 240 ml 400 ml IV Total 450 ml 350 ml Output Urine Total 1500 ml 650 ml # Bowel Movements 0 1 Result Diagram: 05/18/17 0548 05/18/17 0548 Imaging Last Impressions Chest X-Ray 05/18/17 0800 Signed Impressions: Service Date/Time: Thursday, May 18, 2017 07:58 - CONCLUSION: Significant consolidation changes with air bronchograms left base and trace effusion on the right. I have no prior studies for comparison. Olaf Serrano MD FACR Objective Remarks GENERAL: Patient appear much older than stated age, in no acute distress. CARDIOVASCULAR: Normal rate and regular rhythm without murmurs, gallops, or rubs. RESPIRATORY: Poor air movement. Faint rhonchi bilaterally. No wheezing. GASTROINTESTINAL: Abdomen soft, non-tender, non-distended. Normal active bowel sounds MUSCULOSKELETAL: Extremities without cyanosis, or edema. NEURO: Alert & Oriented x4 to person, place, time, situation. Right sided paralysis. Facial droop, slow speech. PSYCH: Appropriate mood and affect. A/P Problem List: (1) Respiratory failure ICD Code: J96.90 Status: Acute (2) Sepsis due to pneumonia ICD Code: J18.9 Status: Acute (3) HTN (hypertension) ICD Code: I10 Status: Acute (4) E. coli UTI ICD Code: N39.0 Status: Acute Assessment and Plan 52-year-old female status post basal ganglia and left pontine CVA with worsening respiratory failure secondary to pneumonia and sepsis. Patient is being admitted from [facility] to ICU for treatment. Sepsis due to pneumonia: HCAP. Chest x-ray by my read is improved today compared to yesterday's film. - Continue antibiotics with Zosyn and vancomycin, appreciate infectious disease following. Follow cultures. Sputum culture when the patient is able to expectorate. - Appreciate Pulmonology input. High flow nasal canula ordered. Probable underlying COPD. DW RN to titrate oxygen to a goal of low 90's Scheduled DuoNeb treatments every 6 hours and when necessary. Solu-Medrol 40 mg IV every 12 hours BiPAP as needed. Right basal ganglia infarct and left pontine CVA Status post TPA and currently on Coumadin and Plavix. Recheck INR today. Resume Coumadin. Pharmacy consult Continue Lipitor Microcytic Anemia, acute on chronic- Hemoglobin 7.5 s/p 1 unit of PRBC-->9.7>> 7.8>>9.2: No active source of bleeding identified. Status post IV Venofer 1 Continue with by mouth Ferrous sulfate twice a day Repeat H&H in AM. Hemoccult stool neg Urinary tract infection: E coli UTI. Abx as above. Anxiety/depression Continue with Zoloft Hyperlipidemia On Pravastatin Hypertension Continue Metoprolol 25 mg Q12H History of hepatitis C Chronic DVT prophylaxis: On Coumadin Discharge Planning Keep in ICU for now pending improvement in respiratory status. Dolores Malagon MD May 18, 2017 10:22
[2017-05-18] MEDS: FERROUS SULFATE 325 MG (65 MG ELEMENTAL IRON) TAB PO SCH ×2 (11:14→17:35)
[2017-05-18] MEDS ORDERED: METOPROLOL TARTRATE 5 MG/5 ML VIAL IV PUSH PRN (11:15)
[2017-05-18 14:41] LABS: ANA SCREEN POS (NEG)
[2017-05-18 16:15] LABS: PROTHROMBIN TIME - PATIENT 86.2 SEC (9.8-11.6)
[2017-05-18 16:19] LABS: INTERNATIONAL NORMALIZED RATIO 7.2 RATIO
[2017-05-18] MEDS: traZODone HCL 50 MG TAB PO SCH (21:00)
[2017-05-19] VITALS (13 sets, daily range): BP systolic 143–188; BP diastolic 78–102; PULSE 67–84; RESP 16–24; TEMP 97.8–98.4; O2SAT 92–99
[2017-05-19] MEDS: RESP: ALBUTEROL 2.5 MG/IPRATROPIUM 0.5 MG NEB (SCH) INH ×6 (00:10→22:30)
[2017-05-19] MEDS: hydrALAZINE HCL 20 MG/ML VIAL IV PUSH PRN ×6 (00:38→22:21)
[2017-05-19] MEDS: LABETALOL HCL 100 MG/20 ML VIAL IV PUSH PRN ×6 (03:10→23:36)
[2017-05-19] MEDS: CHLORHEXIDINE GLUCONATE 2 % 1 PACK (2 CLOTHS)(taper/protocol) TOPICAL SCH (04:00)
[2017-05-19] MEDS: ACETAMINOPHEN/HYDROcodone 325 MG/5 MG TAB PO PRN ×3 (04:49→20:35)
[2017-05-19 04:59] LABS: HEMATOCRIT 29.8 % (35.0-46.0); MEAN CELL VOLUME 73.9 FL (80.0-100.0); MEAN CORPUSCULAR HEMOGLOBIN 23.3 PG (27.0-34.0); MEAN CORPUSCULAR HGB CONC 31.5 % (32.0-36.0); PLATELET COUNT 375 TH/MM3 (150-450); RED BLOOD COUNT 4.03 MIL/MM3 (4.00-5.30); RED CELL DISTRIBUTION WIDTH 20.4 % (11.6-17.2); REVIEW FLAG FINAL; WHITE BLOOD COUNT 10.4 TH/MM3 (4.0-11.0)
[2017-05-19 05:19] LABS: INTERNATIONAL NORMALIZED RATIO 5.9 RATIO; PROTHROMBIN TIME - PATIENT 70.3 SEC (9.8-11.6)
[2017-05-19 05:20] LABS: BICARBONATE 28.2 MEQ/L (21.0-32.0); POTASSIUM 3.3 MEQ/L (3.5-5.1)
[2017-05-19] MEDS: PIPERACIL-TAZO 4.5 GM PREMIX 100 ML IV SCH ×3 (05:24→17:21)
[2017-05-19] MEDS: methylPREDNISolone SOD SUCC 40 MG/1 ML VIAL IV SCH ×3 (05:24→17:21)
[2017-05-19] MEDS: GABAPENTIN 300 MG CAP PO SCH ×3 (05:25→21:42)
[2017-05-19] MEDS: ALPRAZolam 1 MG TAB PO PRN ×3 (05:59→22:40)
[2017-05-19] MEDS: SERTRALINE HCL 50 MG TAB PO SCH (08:14)
[2017-05-19] MEDS: SODIUM CHLORIDE 0.9% FLUSH 10 ML FLUSH IV FLUSH SCH ×2 (08:14→21:00)
[2017-05-19] MEDS: PANTOPRAZOLE SOD 40 MG DELAYED RELEASE TAB PO SCH (08:14)
[2017-05-19] MEDS: buPROPion HCL 150 MG SUSTAINED RELEASE TAB PO SCH ×2 (08:14→21:10)
[2017-05-19] MEDS: METOPROLOL TARTRATE 25 MG TAB PO SCH ×2 (08:14→21:10)
[2017-05-19] MEDS: CLOPIDOGREL 75 MG TAB PO SCH (08:14)
[2017-05-19] MEDS: PRAVASTATIN SOD 40 MG TAB PO SCH (08:14)
[2017-05-19] MEDS: VANCOMYCIN INJ 1,250 MG in SODIUM CHLOR 0.9% 250 ML INJ 250 ML IV SCH ×2 (08:15→21:11)
[2017-05-19] MEDS ORDERED: PHARMACY ORDERED LAB ONE (08:45)
--- NOTE | 2017-05-19 11:04 | HHI.PR ---
Subjective Remarks Patient reports she is feeling better today. Breathing more comfortably. Discussed with RN. We will attempt to wean off high flow nasal cannula today. BP high. Objective Vitals Vital Signs Date Time Temp Pulse Resp B/P Pulse Ox O2 Delivery O2 Flow Rate FiO2 05/19/17 09:22 95 High Flow Nasal Cannula 25.00 50 05/19/17 07:00 98.4 78 24 163/86 93 05/19/17 07:00 93 Nasal Cannula 50 05/19/17 07:00 77 05/19/17 04:00 77 05/19/17 04:00 98.0 77 20 188/96 97 05/19/17 00:10 99 High Flow Nasal Cannula 25.00 50 05/19/17 00:00 67 05/19/17 00:00 97.8 67 20 187/102 98 05/18/17 20:53 97 High Flow Nasal Cannula 25.00 50 05/18/17 20:00 81 05/18/17 20:00 98.1 81 20 186/100 97 05/18/17 20:00 97 50 05/18/17 15:00 86 05/18/17 15:00 98.2 86 22 162/85 88 05/18/17 12:14 20 05/18/17 12:00 50 05/18/17 11:44 93 High Flow Nasal Cannula 25.00 50 I/O 05/18/17 05/18/17 05/18/17 05/19/17 05/19/17 05/19/17 07:00 15:00 23:00 07:00 15:00 23:00 Intake Total 750 ml 1150 ml 690 ml Output Total 650 ml 250 ml 600 ml Balance 100 ml 900 ml 90 ml Intake Oral 400 ml 240 ml IV Total 350 ml 1150 ml 450 ml Output Urine Total 650 ml 250 ml 600 ml # Bowel Movements 1 0 0 Result Diagram: 05/19/1741905/19/17419 Objective Remarks GENERAL: Patient appear much older than stated age, in no acute distress. CARDIOVASCULAR: Normal rate and regular rhythm without murmurs, gallops, or rubs. RESPIRATORY: Better air movement. Faint rhonchi bilaterally. No wheezing. GASTROINTESTINAL: Abdomen soft, non-tender, non-distended. Normal active bowel sounds MUSCULOSKELETAL: Extremities without cyanosis, or edema. NEURO: Alert & Oriented x4 to person, place, time, situation. Right sided weakness, improving. Right side is no longer flaccid. RL 3/5. RUE 2/5. Facial droop, slow speech. PSYCH: Appropriate mood and affect. A/P Problem List: (1) Respiratory failure ICD Code: J96.90 Status: Acute (2) Sepsis due to pneumonia ICD Code: J18.9 Status: Acute (3) HTN (hypertension) ICD Code: I10 Status: Acute (4) E. coli UTI ICD Code: N39.0 Status: Acute Assessment and Plan 52-year-old female status post basal ganglia and left pontine CVA with worsening respiratory failure secondary to pneumonia and sepsis. Patient is being admitted from [facility] to ICU for treatment. Sepsis due to pneumonia: HCAP. Chest x-ray by my read is improved today compared to yesterday's film. - Continue antibiotics with Zosyn and vancomycin, appreciate infectious disease following. Follow cultures. Sputum culture when the patient is able to expectorate. - Appreciate Pulmonology input. High flow nasal canula ordered. Probable underlying COPD. DW RN to titrate wean off high flow nasal cannula as tolerated. Scheduled DuoNeb treatments Solu-Medrol IV BiPAP as needed. Right basal ganglia infarct and left pontine CVA Status post TPA and currently on Coumadin and Plavix. INR supratherapeutic. Continue to hold Coumadin. Pharmacy following. Continue Lipitor Microcytic Anemia, acute on chronic- Hemoglobin 7.5 s/p 1 unit of PRBC-->9.7>> 7.8>>9.2: No active source of bleeding identified. Status post IV Venofer 1 Continue with by mouth Ferrous sulfate twice a day Follow CBC Hemoccult stool neg Urinary tract infection: E coli UTI. Abx as above. Anxiety/depression Continue with Zoloft Hypokalemia: Replace and monitor. Hyperlipidemia On Pravastatin Hypertension Continue Metoprolol 25 mg Q12H. hydralazine and labetalol as needed. May need to add a second agent for blood pressure control. Continue to monitor closely History of hepatitis C Chronic DVT prophylaxis: On Coumadin Discharge Planning Keep in ICU for now pending improvement in respiratory status. Dolores Malagon MD May 19, 2017 11:04
[2017-05-19] MEDS ORDERED: POTASSIUM CHLORIDE 10 MEQ CONTROLLED RELEASE TAB PO ONE (12:30)
[2017-05-19] MEDS: FERROUS SULFATE 325 MG (65 MG ELEMENTAL IRON) TAB PO SCH ×2 (12:30→17:21)
--- NOTE | 2017-05-19 15:35 | HHI.IDPN ---
Subjective Subjective Remarks Patient is a 52-year-old female, initially admitted at [facility] May 08 and she was diagnosed to have CVA. She had mostly right sided involvement. She went to [facility] on May 14. Apparently at [facility] she started having fevers and her chest x-ray showed evidence of pneumonia. Patient was ever has had some low-grade fevers even on her first hospitalization going back to lie 18. There was a urinalysis and culture from May 11 that had Escherichia coli. Patient was started on cefepime. Her fevers continue, and she developed increasing oxygen requirement, so she was transferred to the main hospital for further evaluation and treatment. Patient currently is on a facemask. She has some coughing, but has difficulty bringing up any sputum. She has some occasional sternal pain when she coughs. There's been no nausea or vomiting or any problems swallowing. She is on mechanical soft diet. Her WBC is normal. Her hemodynamics are stable. Notes reviewed Temps ok On high flow nasal O2 Coughing up some phlegm usually in the morning No CP Antibiotics Vanco Zosyn Lines PIV Past Medical History Hypertension Hyperlipidemia Lupus CVA with R sided weakness Anxiety Depression Past Surgical History Hernia repair section Hysterectomy Right shoulder ORIF Allergies: Coded Allergies: Bactrim (Verified Allergy, Severe, SKIN PROBLEMS, 05/14/17) Flu Vaccine (Verified Allergy, Severe, Respiratory Failure, 05/14/17) Objective . Vital Signs Date Time Temp Pulse Resp B/P Pulse Ox O2 Delivery O2 Flow Rate FiO2 05/19/17 14:18 93 High Flow Nasal Cannula 15.00 50 05/19/17 13:32 4 05/19/17 11:00 98.4 77 18 164/83 94 05/19/17 11:00 75 05/19/17 11:00 96 High Flow Nasal Cannula 20.00 50 05/19/17 11:00 96 05/19/17 09:22 95 High Flow Nasal Cannula 25.00 50 05/19/17 07:00 98.4 78 24 163/86 93 05/19/17 07:00 93 Nasal Cannula 50 05/19/17 07:00 77 05/19/17 04:00 77 05/19/17 04:00 98.0 77 20 188/96 97 05/19/17 00:10 99 High Flow Nasal Cannula 25.00 50 05/19/17 00:00 67 05/19/17 00:00 97.8 67 20 187/102 98 05/18/17 20:53 97 High Flow Nasal Cannula 25.00 50 05/18/17 20:00 81 05/18/17 20:00 98.1 81 20 186/100 97 05/18/17 20:00 97 50 05/18/17 05/18/17 05/19/17 14:59 22:59 06:59 Intake Total 1150 ml 690 ml Output Total 250 ml 600 ml Balance 900 ml 90 ml Intake Oral 240 ml IV Total 1150 ml 450 ml Output Urine Total 250 ml 600 ml # Bowel Movements 0 0 . Laboratory Tests Test 05/18/17 05/19/17 05:48 04:20 White Blood Count 11.4 TH/MM3 10.4 TH/MM3 Red Blood Count 3.93 MIL/MM3 4.03 MIL/MM3 Hemoglobin 9.2 GM/DL 9.4 GM/DL Hematocrit 28.7 % 29.8 % Mean Corpuscular Volume 73.0 FL 73.9 FL Mean Corpuscular Hemoglobin 23.4 PG 23.3 PG Mean Corpuscular Hemoglobin 32.1 % 31.5 % Concent Red Cell Distribution Width 20.7 % 20.4 % Platelet Count 337 TH/MM3 375 TH/MM3 Mean Platelet Volume 7.7 FL 7.1 FL Neutrophils (%) (Auto) 90.2 % Lymphocytes (%) (Auto) 6.8 % Monocytes (%) (Auto) 2.9 % Eosinophils (%) (Auto) 0.0 % Basophils (%) (Auto) 0.1 % Neutrophils # (Auto) 10.3 TH/MM3 Lymphocytes # (Auto) 0.8 TH/MM3 Monocytes # (Auto) 0.3 TH/MM3 Eosinophils # (Auto) 0.0 TH/MM3 Basophils # (Auto) 0.0 TH/MM3 CBC Comment DIFF FINAL Differential Comment Laboratory Tests Test 05/18/17 05/19/17 05:48 04:20 Sodium Level 141 MEQ/L 141 MEQ/L Potassium Level 3.6 MEQ/L 3.3 MEQ/L Chloride Level 103 MEQ/L 106 MEQ/L Carbon Dioxide Level 31.5 MEQ/L 28.2 MEQ/L Anion Gap 7 MEQ/L 7 MEQ/L Blood Urea Nitrogen 15 MG/DL 18 MG/DL Creatinine 0.59 MG/DL 0.59 MG/DL Estimat Glomerular Filtration 106 ML/MIN 106 ML/MIN Rate Random Glucose 117 MG/DL 114 MG/DL Calcium Level 8.2 MG/DL 8.1 MG/DL Microbiology Date/Time Procedure Status Source Growth 05/17/17 18:50 Stool Occult Blood (VENECIA) - Final Complete Stool Stool HEMOCCULT NEGATIVE 05/18/17 11:20 Gram Stain - Final Resulted Sputum Expectorated Sputum 05/18/17 11:20 Sputum Culture - Preliminary Resulted Sputum Expectorated Sputum HEAVY GROWTH NORMAL RESPIRATORY ECHO... Imaging Last Impressions Chest X-Ray 05/18/17 0800 Signed Impressions: Service Date/Time: Thursday, May 18, 2017 07:58 - CONCLUSION: Significant consolidation changes with air bronchograms left base and trace effusion on the right. I have no prior studies for comparison. Olaf Serrano MD FACR Physical Exam GENERAL: Patient is a thin, well-developed CF, awake and alert, looks comfortable at rest, on FM. SKIN: Warm and dry. No generalized rash HEAD: Atraumatic. Normocephalic. No temporal wasting, or tenderness. EYES: [place] conjunctiva. No petechia or hemorrhage. Pupils equal, round and reactive to light. No scleral icterus. No injection or drainage. EARS, NOSE AND THROAT: Nose without bleeding or purulent nasal discharge. No sinus tenderness. Mucous membranes pink and moist. No oral lesions noted. No exudate. No oral thrush. Has decreased nasolabial fold on R NECK: Trachea midline. Supple and not tender, no meningeal signs CARDIOVASCULAR: Regular rate and rhythm. No murmurs, rubs or gallops heard RESPIRATORY: Coarse BS bilaterally with some rhonchi on R, and decreased at bases, seem worse on L than on the R ABDOMEN: Soft, nondistended, bowel sounds present and normoactive, with tenderness on R side. No guarding. No rebound. No organomegaly. EXTREMITIES: No clubbing, cyanosis, or edema. No joint effusion. No calf tenderness. Well perfused and warm. NEUROLOGICAL: Awake and alert. Has decreased nasolabial fold on R, full EOM. RUE and RLE 0/5 motor strength, 5/5 on L side. Babinski R foot. PSYCHIATRIC: Normal affect, calm and cooperative. LINE: No evidence of infection : Ruelas in place, urine with some sediment Assessment & Plan Remarks IMPRESSION HCAP, patient has been in hospital setting since 05/08, had CVA with R sided involvement, dysarthria, and high risk for aspiration UTI, E coli Recent CVA Known Lupus Smoker, prob with COPD RECOMMENDATION Continue Zosyn and Vancomycin - to cover hospital pathogens Follow C/S, adjust Abx once available Monitor temps Monitor progress Will determine course of Abx once work-up completed Beba Bray MD May 19, 2017 15:35
[2017-05-19] MEDS: traZODone HCL 50 MG TAB PO SCH (21:10)
[2017-05-19] MEDS: cloNIDine HCL 0.1 MG TAB PO PRN (21:37)
[2017-05-20] VITALS (17 sets, daily range): BP systolic 148–195; BP diastolic 76–98; PULSE 71–84; RESP 16–20; TEMP 97.8–98.3; O2SAT 88–97
[2017-05-20] MEDS: hydrALAZINE HCL 20 MG/ML VIAL IV PUSH PRN ×2 (00:01→08:09)
[2017-05-20] MEDS: PIPERACIL-TAZO 4.5 GM PREMIX 100 ML IV SCH ×5 (00:02→23:02)
[2017-05-20] MEDS: methylPREDNISolone SOD SUCC 40 MG/1 ML VIAL IV SCH ×5 (00:02→23:01)
[2017-05-20] MEDS: RESP: ALBUTEROL 2.5 MG/IPRATROPIUM 0.5 MG NEB (SCH) INH ×6 (01:30→20:41)
[2017-05-20] MEDS ORDERED: cloNIDine HCL 0.1 MG TAB PO ONE (03:45)
[2017-05-20] MEDS: cloNIDine HCL 0.1 MG TAB PO PRN ×2 (03:56→08:10)
[2017-05-20] MEDS: CHLORHEXIDINE GLUCONATE 2 % 1 PACK (2 CLOTHS)(taper/protocol) TOPICAL SCH (04:00)
--- NOTE | 2017-05-20 04:53 | RADRPT ---
EXAM DATE/TIME: 05/20/2017 03:36 [facility] COMPARISON: CHEST SINGLE AP, May 18, 2017, 7:58. INDICATIONS : Shortness of breath. MEDICAL HISTORY : Hypertension. Hypercholesterolemia SURGICAL HISTORY : Hysterectomy. ENCOUNTER: Subsequent ACUITY: 3 days PAIN SCORE: Non-responsive. LOCATION: Bilateral chest FINDINGS: Portable AP view of the chest demonstrates cardiac silhouette size at the upper limits for normal. Bi lateral mid and lower lung zone airspace consolidation is stable as long with pleural based opacities . No pneumothorax is identified. CONCLUSION: Stable chest x-ray with small bilateral pleural effusions with airspace consolidation bilaterally. Padilla Peña MD on May 20, 2017 at 4:51 Board Certified Radiologist. This report was verified electronically.
[2017-05-20] MEDS: SODIUM CHLOR 0.9% 1000 ML INJ 1,000 ML IV SCH (05:27)
[2017-05-20 05:57] LABS: HEMATOCRIT 30.5 % (35.0-46.0); MEAN CELL VOLUME 72.6 FL (80.0-100.0); MEAN CORPUSCULAR HEMOGLOBIN 23.5 PG (27.0-34.0); MEAN CORPUSCULAR HGB CONC 32.3 % (32.0-36.0); PLATELET COUNT 394 TH/MM3 (150-450); RED CELL DISTRIBUTION WIDTH 20.9 % (11.6-17.2); REVIEW FLAG FINAL; WHITE BLOOD COUNT 9.2 TH/MM3 (4.0-11.0)
[2017-05-20] MEDS: GABAPENTIN 300 MG CAP PO SCH ×3 (06:05→21:22)
[2017-05-20] MEDS: ACETAMINOPHEN/HYDROcodone 325 MG/5 MG TAB PO PRN ×3 (06:06→22:59)
[2017-05-20 06:27] LABS: BICARBONATE 28.6 MEQ/L (21.0-32.0); POTASSIUM 3.1 MEQ/L (3.5-5.1)
[2017-05-20 06:29] LABS: INTERNATIONAL NORMALIZED RATIO 2.3 RATIO; PROTHROMBIN TIME - PATIENT 26.4 SEC (9.8-11.6)
[2017-05-20] MEDS: NITROGLYCERIN-DEXTROSE INJ 250 ML IV SCH (06:38)
[2017-05-20] MEDS: ALPRAZolam 1 MG TAB PO PRN ×3 (06:59→22:59)
--- NOTE | 2017-05-20 07:41 | HHI.PR ---
Subjective Remarks Patient is better, she is breathing better, however she still requires high flow oxygen. Says she has less cough. No fever or chills overnight. No nausea , vomiting, diarrhea or constipation. Objective Vitals Vital Signs Date Time Temp Pulse Resp B/P Pulse Ox O2 Delivery O2 Flow Rate FiO2 05/20/17 07:00 74 05/20/17 03:49 97 High Flow Nasal Cannula 15.00 40 05/20/17 03:00 71 05/20/17 03:00 98.0 71 16 195/98 97 05/20/17 02:00 72 05/20/17 01:00 72 05/20/17 00:00 71 05/19/17 23:00 74 05/19/17 23:00 97.9 71 20 183/95 97 05/19/17 22:00 70 05/19/17 21:38 12 05/19/17 21:00 75 05/19/17 20:00 84 16 150/88 94 05/19/17 20:00 99 Nasal Cannula 15.00 50 05/19/17 20:00 79 05/19/17 19:00 84 05/19/17 15:00 98.2 83 18 143/78 92 05/19/17 15:00 83 05/19/17 14:18 93 High Flow Nasal Cannula 15.00 50 05/19/17 14:00 Nasal Cannula 05/19/17 11:00 98.4 77 18 164/83 94 05/19/17 11:00 75 05/19/17 11:00 96 High Flow Nasal Cannula 20.00 50 05/19/17 11:00 96 05/19/17 09:22 95 High Flow Nasal Cannula 25.00 50 I/O 05/19/17 05/19/17 05/19/17 05/20/17 05/20/17 05/20/17 06:59 14:59 22:59 06:59 14:59 22:59 Intake Total 690 ml 850 ml 1100 ml Output Total 600 ml 225 ml 650 ml Balance 90 ml 625 ml 450 ml Intake Oral 240 ml 500 ml IV Total 450 ml 350 ml 1100 ml Output Urine Total 600 ml 225 ml 650 ml # Bowel Movements 0 1 Result Diagram: 05/20/17 0540 05/20/17 0540 Imaging Last Impressions Chest X-Ray 05/20/17 0600 Signed Impressions: Service Date/Time: Saturday, May 20, 2017 03:36 - CONCLUSION: Stable chest x-ray with small bilateral pleural effusions with airspace consolidation bilaterally. Padilla Peña MD Objective Remarks GENERAL: 52 yo F, appearing much older than stated age, in no acute distress. CARDIOVASCULAR: Normal rate and regular rhythm without murmurs, gallops, or rubs. RESPIRATORY: Better air movement. Faint rhonchi bilaterally. No wheezing. GASTROINTESTINAL: Abdomen soft, non-tender, non-distended. Normal active bowel sounds MUSCULOSKELETAL: Extremities without cyanosis, or edema. NEURO: Alert & Oriented x4 to person, place, time, situation. Right sided weakness, improving. Right side is no longer flaccid. RL 3/5. RUE 2/5. Facial droop, slow speech. PSYCH: Appropriate mood and affect. A/P Problem List: (1) Respiratory failure ICD Code: J96.90 Status: Acute (2) Sepsis due to pneumonia ICD Code: J18.9 Status: Acute (3) HTN (hypertension) ICD Code: I10 Status: Acute (4) E. coli UTI ICD Code: N39.0 Status: Acute Assessment and Plan 52-year-old female status post basal ganglia and left pontine CVA with worsening respiratory failure secondary to pneumonia and sepsis. Patient is being admitted from [facility] to ICU for treatment. Sepsis due to pneumonia: HCAP Acute respiratory failure requiring high flow NC and BiPAP. Titrate down as tolerated. Repeat Chest x-ray reviewed, shows some improvement. Continue antibiotics with Zosyn and vancomycin, appreciate infectious disease following. Follow cultures. Sputum culture when the patient is able to expectorate. Appreciate Pulmonology recommendations. On high flow nasal canula. Probable underlying COPD. DW RN to titrate wean off high flow nasal cannula as tolerated. Scheduled DuoNeb treatments Solu-Medrol IV, taper as tolerated. BiPAP as needed. Right basal ganglia infarct and left pontine CVA Status post TPA and currently on Coumadin and Plavix. INR supratherapeutic. Continue to hold Coumadin. Pharmacy following. Continue Lipitor Microcytic Anemia, acute on chronic Hemoglobin 7.5 on admission s/p 1 unit of PRBC-->9.7>>7.8>>9.2: No active source of bleeding identified. Status post IV Venofer. Monitor H/H and transfuse if HGB< 7 or if patient symptomatic and HGB<9 Continue with by mouth Ferrous sulfate twice a day Follow CBC Hemoccult stool neg Urinary tract infection: E coli UTI. Abx as above. Anxiety/depression: Continue with Zoloft Hypokalemia: Replace and monitor. Hyperlipidemia. On Pravastatin Hypertension, uncontrolled. Increased Metoprolol to 25 mg Q8H. Continue amlodipine 10 mg PO daily. Hydralazine and labetalol as needed. Continue to monitor closely and adjust meds as indicated. History of hepatitis C. Chronic DVT prophylaxis: On Coumadin Discharge Planning Pending improvement. Transfer to ICU patient still requiring high flow NC. Discussed with the patient, nurse Prema Stover MD May 20, 2017 07:41
[2017-05-20] MEDS ORDERED: METOPROLOL TARTRATE 25 MG TAB PO ONE (07:45)
[2017-05-20] MEDS: PRAVASTATIN SOD 40 MG TAB PO SCH (08:09)
[2017-05-20] MEDS: CLOPIDOGREL 75 MG TAB PO SCH (08:10)
[2017-05-20] MEDS: buPROPion HCL 150 MG SUSTAINED RELEASE TAB PO SCH ×2 (08:10→20:48)
[2017-05-20] MEDS: SERTRALINE HCL 50 MG TAB PO SCH (08:10)
[2017-05-20] MEDS: SODIUM CHLORIDE 0.9% FLUSH 10 ML FLUSH IV FLUSH SCH ×2 (08:11→20:48)
[2017-05-20] MEDS: PANTOPRAZOLE SOD 40 MG DELAYED RELEASE TAB PO SCH (08:11)
[2017-05-20] MEDS ORDERED: PHARMACY ORDERED LAB ONE (08:45)
[2017-05-20] MEDS: VANCOMYCIN INJ 1,250 MG in SODIUM CHLOR 0.9% 250 ML INJ 250 ML IV SCH (08:53)
[2017-05-20] MEDS ORDERED: POTASSIUM PHOSPHATE MONOBASIC 500 MG TAB PO/TUBE PRN (10:30)
[2017-05-20] MEDS ORDERED: MAGNESIUM SULFATE INJ 2 GM in SODIUM CHLORIDE 0.9% INJ 96 ML IV PRN (10:30)
[2017-05-20] MEDS ORDERED: MAGNESIUM SULFATE INJ 4 GM in SODIUM CHLORIDE 0.9% INJ 92 ML IV PRN (10:30)
[2017-05-20] MEDS ORDERED: POTASSIUM PHOSPHATE MONOBASIC 500 MG TAB PO PRN (10:30)
[2017-05-20] MEDS ORDERED: POTASSIUM PHOSPHATE INJ 30 MMOL in SODIUM CHLOR 0.9% 250 ML INJ 250 ML IV PRN (10:30)
[2017-05-20] MEDS ORDERED: SODIUM PHOSPHATE INJ 30 MMOL in SODIUM CHLOR 0.9% 250 ML INJ 240 ML IV PRN (10:30)
[2017-05-20] MEDS ORDERED: POTASSIUM CHLOR 20 MEQ PREMIX 100 ML IV PRN (10:30)
[2017-05-20] MEDS ORDERED: POTASSIUM CHLOR 40 MEQ PREMIX 100 ML IV PRN ×2 (10:30)
[2017-05-20] MEDS ORDERED: MAGNESIUM OXIDE 400 MG TAB PO PRN (10:30)
[2017-05-20] MEDS ORDERED: POTASSIUM CHLORIDE 25 MEQ EFFERVESCENT TAB PO PRN (10:30)
[2017-05-20] MEDS: POTASSIUM CHLOR 20 MEQ PREMIX 100 ML IV PRN ×4 (10:46→16:31)
[2017-05-20] MEDS: FERROUS SULFATE 325 MG (65 MG ELEMENTAL IRON) TAB PO SCH ×2 (12:43→16:31)
[2017-05-20 13:21] LABS: ANA TITER QUANT >1:1280 (NEG)
[2017-05-20] MEDS: METOPROLOL TARTRATE 25 MG TAB PO SCH ×2 (14:05→21:22)
[2017-05-20] MEDS: WARFARIN SOD 3 MG TAB PO SCH (15:51)
[2017-05-20] MEDS: traZODone HCL 50 MG TAB PO SCH (20:47)
[2017-05-21] VITALS (16 sets, daily range): BP systolic 149–171; BP diastolic 82–98; PULSE 77–96; RESP 14–20; TEMP 97.9–99.3; O2SAT 92–97
[2017-05-21] MEDS: RESP: ALBUTEROL 2.5 MG/IPRATROPIUM 0.5 MG NEB (SCH) INH ×6 (00:08→21:55)
[2017-05-21] MEDS: CHLORHEXIDINE GLUCONATE 2 % 1 PACK (2 CLOTHS)(taper/protocol) TOPICAL SCH (04:00)
[2017-05-21] MEDS: hydrALAZINE HCL 20 MG/ML VIAL IV PUSH PRN ×3 (04:18→23:06)
[2017-05-21] MEDS: SODIUM CHLOR 0.9% 1000 ML INJ 1,000 ML IV SCH ×2 (04:40→11:00)
[2017-05-21] MEDS: METOPROLOL TARTRATE 25 MG TAB PO SCH ×3 (05:26→21:13)
[2017-05-21] MEDS: PIPERACIL-TAZO 4.5 GM PREMIX 100 ML IV SCH ×3 (05:26→18:31)
[2017-05-21] MEDS: GABAPENTIN 300 MG CAP PO SCH ×3 (05:27→21:13)
[2017-05-21] MEDS: methylPREDNISolone SOD SUCC 40 MG/1 ML VIAL IV SCH ×3 (05:27→21:13)
[2017-05-21 05:34] LABS: INTERNATIONAL NORMALIZED RATIO 1.9 RATIO; PROTHROMBIN TIME - PATIENT 21.4 SEC (9.8-11.6)
[2017-05-21 05:47] LABS: BASOPHIL % 0.2 % (0.0-2.0); HEMATOCRIT 29.9 % (35.0-46.0); LYMPH % 9.4 % (9.0-44.0); LYMPHOCYTE # 1.3 TH/MM3 (1.0-4.8); MEAN CELL VOLUME 74.1 FL (80.0-100.0); MONO % 4.3 % (0.0-8.0); NEUT % 86.1 % (16.0-70.0); PLATELET COUNT 434 TH/MM3 (150-450); RED BLOOD COUNT 4.03 MIL/MM3 (4.00-5.30); RED CELL DISTRIBUTION WIDTH 21.1 % (11.6-17.2); WHITE BLOOD COUNT 13.9 TH/MM3 (4.0-11.0)
[2017-05-21 05:57] LABS: BICARBONATE 25.1 MEQ/L (21.0-32.0); MAGNESIUM 2.2 MG/DL (1.5-2.5); POTASSIUM 4.3 MEQ/L (3.5-5.1)
[2017-05-21] MEDS: ACETAMINOPHEN/HYDROcodone 325 MG/5 MG TAB PO PRN ×2 (06:08→18:31)
[2017-05-21] MEDS: ALPRAZolam 1 MG TAB PO PRN ×2 (06:15→18:30)
[2017-05-21 07:44] LABS: HEMO FLAGS AUTO DIFF
[2017-05-21] MEDS: LABETALOL HCL 100 MG/20 ML VIAL IV PUSH PRN (08:14)
--- NOTE | 2017-05-21 08:18 | HHI.PR ---
Objective Vital Signs Date Time Temp Pulse Resp B/P Pulse Ox O2 Delivery O2 Flow Rate FiO2 05/21/17 07:36 96 Nasal Cannula 4.00 05/21/17 07:27 80 05/21/17 07:05 14 05/21/17 04:59 95 Nasal Cannula 4.00 05/21/17 03:00 80 05/21/17 03:00 98.2 80 20 165/98 95 05/20/17 23:00 98.3 84 20 165/89 95 05/20/17 23:00 84 05/20/17 20:41 93 Nasal Cannula 5.00 05/20/17 19:00 97.8 84 20 153/84 95 05/20/17 19:00 95 Nasal Cannula 6.00 05/20/17 19:00 84 05/20/17 17:56 97 Nasal Cannula 6.00 05/20/17 17:45 97 Nasal Cannula 6.00 05/20/17 15:26 98.2 83 18 148/76 92 05/20/17 15:00 82 05/20/17 12:00 98.2 83 18 148/76 92 05/20/17 11:30 88 High Flow Nasal Cannula 15.00 50 05/20/17 11:00 83 05/20/17 09:50 93 High Flow Nasal Cannula 15.00 I/O 05/20/17 05/20/17 05/20/17 05/21/17 05/21/17 05/21/17 06:59 14:59 22:59 06:59 14:59 22:59 Intake Total 1100 ml 2950 ml 2002 ml Output Total 650 ml 750 ml 550 ml Balance 450 ml 2200 ml 1452 ml Intake Oral 1200 ml 660 ml IV Total 1100 ml 1750 ml 1342 ml Output Urine Total 650 ml 750 ml 550 ml # Bowel Movements 1 2 Result Diagram: 05/21/17 0426 05/21/176 Objective Remarks awake follows commands 0/5 rue and 1/5 rle moves left wel Assessment and Plan Assessment and Plan imp inr 1.9 severe r hp no change limit narcotics if can PT Rickie Culver MD May 21, 2017 08:18
--- NOTE | 2017-05-21 08:48 | HHI.PR ---
Subjective Remarks Patient in the chair. Says she feels some sob. Doesn't cough much however she feels her chest is congested. Feels weak. Eating better. No n/v/d/c. Denies chest pain. No fever or chills overnight. She is satting fairly well on 4L NC Encourage acapella and IS use. Objective Vitals Vital Signs Date Time Temp Pulse Resp B/P Pulse Ox O2 Delivery O2 Flow Rate FiO2 05/21/17 08:21 97.9 86 14 171/90 94 05/21/17 08:21 94 Nasal Cannula 4.00 05/21/17 07:36 96 Nasal Cannula 4.00 05/21/17 07:27 80 05/21/17 07:05 14 05/21/17 04:59 95 Nasal Cannula 4.00 05/21/17 03:00 80 05/21/17 03:00 98.2 80 20 165/98 95 05/20/17 23:00 98.3 84 20 165/89 95 05/20/17 23:00 84 05/20/17 20:41 93 Nasal Cannula 5.00 05/20/17 19:00 97.8 84 20 153/84 95 05/20/17 19:00 95 Nasal Cannula 6.00 05/20/17 19:00 84 05/20/17 17:56 97 Nasal Cannula 6.00 05/20/17 17:45 97 Nasal Cannula 6.00 05/20/17 15:26 98.2 83 18 148/76 92 05/20/17 15:00 82 05/20/17 12:00 98.2 83 18 148/76 92 05/20/17 11:30 88 High Flow Nasal Cannula 15.00 50 05/20/17 11:00 83 05/20/17 09:50 93 High Flow Nasal Cannula 15.00 I/O 05/20/17 05/20/17 05/20/17 05/21/17 05/21/17 05/21/17 07:00 15:00 23:00 07:00 15:00 23:00 Intake Total 1100 ml 2950 ml 2002 ml Output Total 650 ml 750 ml 550 ml Balance 450 ml 2200 ml 1452 ml Intake Oral 1200 ml 660 ml IV Total 1100 ml 1750 ml 1342 ml Output Urine Total 650 ml 750 ml 550 ml # Bowel Movements 1 2 Result Diagram: 05/21/1742505/21/17425 Objective Remarks GENERAL: 52 yo F, appearing much older than stated age, in no acute distress. CARDIOVASCULAR: Normal rate and regular rhythm without murmurs, gallops, or rubs. RESPIRATORY: Better air movement. Faint rhonchi bilaterally. No wheezing. GASTROINTESTINAL: Abdomen soft, non-tender, non-distended. Normal active bowel sounds MUSCULOSKELETAL: Extremities without cyanosis, or edema. NEURO: Alert & Oriented x4 to person, place, time, situation. Right sided weakness, improving. Right side is no longer flaccid. RL 3/5. RUE 2/5. Facial droop, slow speech. PSYCH: Appropriate mood and affect. A/P Problem List: (1) Respiratory failure ICD Code: J96.90 Status: Acute (2) Sepsis due to pneumonia ICD Code: J18.9 Status: Acute (3) HTN (hypertension) ICD Code: I10 Status: Acute (4) E. coli UTI ICD Code: N39.0 Status: Acute Assessment and Plan 52-year-old female status post basal ganglia and left pontine CVA with worsening respiratory failure secondary to pneumonia and sepsis. Patient is being admitted from [facility] to ICU for treatment. Sepsis due to pneumonia: HCAP Acute respiratory failure requiring high flow NC and BiPAP. Titrate down as tolerated. Currently on 4L by NC. Repeat Chest x-ray reviewed, shows some improvement. Continue antibiotics with Zosyn and vancomycin, appreciate infectious disease following. Follow cultures. Sputum culture when the patient is able to expectorate. Appreciate Pulmonology recommendations. On high flow nasal canula. Probable underlying COPD. DENISSE RN to titrate wean off high flow nasal cannula as tolerated. Scheduled DuoNeb treatments Solu-Medrol IV, taper as tolerated. BiPAP as needed. Right basal ganglia infarct and left pontine CVA Status post TPA and currently on Coumadin and Plavix. INR supratherapeutic. Continue to hold Coumadin. Pharmacy following. Continue Lipitor Microcytic Anemia, acute on chronic Hemoglobin 7.5 on admission s/p 1 unit of PRBC-->9.7>>7.8>>9.2: No active source of bleeding identified. Status post IV Venofer. Monitor H/H and transfuse if HGB< 7 or if patient symptomatic and HGB<9 Continue with by mouth Ferrous sulfate twice a day Follow CBC Hemoccult stool neg Urinary tract infection: E coli UTI. Abx as above. Anxiety/depression: Continue with Zoloft Hypokalemia: Replace and monitor. Hyperlipidemia. On Pravastatin Hypertension, uncontrolled. Increased Metoprolol to 25 mg Q8H. Continue amlodipine 10 mg PO daily. Hydralazine and labetalol as needed. Continue to monitor closely and adjust meds as indicated. History of hepatitis C. Chronic DVT prophylaxis: On Coumadin Discharge Planning Pending improvement. Discussed with the patient, nurse Prema Stover MD May 21, 2017 08:48
[2017-05-21 08:50] LABS: BANDS 3 % (0-6); MYELOCYTES 1 % (0-0); NEUTROPHIL # MANUAL DIFF 13.6 TH/MM3 (1.8-7.7); POLYS (SEG NEUTROPHILS) 94 % (16-70); WBC DIFF SAMPLE 100
[2017-05-21 08:51] LABS: OVALOCYTES 1+ (NORMAL); PLATELET ESTIMATE SMEAR NORMAL (NORMAL); PLATELET MORPHOLOGY NORMAL (NORMAL); SCAN/DIFF FINAL DIFF MANUAL
[2017-05-21] MEDS: SODIUM CHLORIDE 0.9% FLUSH 10 ML FLUSH IV FLUSH SCH ×2 (09:00→21:13)
[2017-05-21] MEDS: PRAVASTATIN SOD 40 MG TAB PO SCH (09:13)
[2017-05-21] MEDS: SERTRALINE HCL 50 MG TAB PO SCH (09:13)
[2017-05-21] MEDS: buPROPion HCL 150 MG SUSTAINED RELEASE TAB PO SCH ×2 (09:14→21:13)
[2017-05-21] MEDS: CLOPIDOGREL 75 MG TAB PO SCH (09:14)
[2017-05-21] MEDS: PANTOPRAZOLE SOD 40 MG DELAYED RELEASE TAB PO SCH (09:14)
[2017-05-21] MEDS: FERROUS SULFATE 325 MG (65 MG ELEMENTAL IRON) TAB PO SCH ×2 (12:24→17:06)
--- NOTE | 2017-05-21 12:37 | HHI.PR ---
Subjective Remarks Feels better. On O2 at 2L and sats 95. Good output. Right side weakness as before. Objective Vital Signs Date Time Temp Pulse Resp B/P Pulse Ox O2 Delivery O2 Flow Rate FiO2 05/21/17 11:27 77 05/21/17 11:26 98.4 78 16 149/82 97 05/21/17 08:21 97.9 86 14 171/90 94 05/21/17 08:21 94 Nasal Cannula 4.00 05/21/17 07:36 96 Nasal Cannula 4.00 05/21/17 07:27 80 05/21/17 07:05 14 05/21/17 04:59 95 Nasal Cannula 4.00 05/21/17 03:00 80 05/21/17 03:00 98.2 80 20 165/98 95 05/20/17 23:00 98.3 84 20 165/89 95 05/20/17 23:00 84 05/20/17 20:41 93 Nasal Cannula 5.00 05/20/17 19:00 97.8 84 20 153/84 95 05/20/17 19:00 95 Nasal Cannula 6.00 05/20/17 19:00 84 05/20/17 17:56 97 Nasal Cannula 6.00 05/20/17 17:45 97 Nasal Cannula 6.00 05/20/17 15:26 98.2 83 18 148/76 92 05/20/17 15:00 82 I/O 05/20/17 05/20/17 05/20/17 05/21/17 05/21/17 05/21/17 06:59 14:59 22:59 06:59 14:59 22:59 Intake Total 1100 ml 2950 ml 2002 ml Output Total 650 ml 750 ml 550 ml Balance 450 ml 2200 ml 1452 ml Intake Oral 1200 ml 660 ml IV Total 1100 ml 1750 ml 1342 ml Output Urine Total 650 ml 750 ml 550 ml # Bowel Movements 1 2 Result Diagram: 05/21/1742505/21/17425 Objective Remarks GENERAL: 52 yo F, appearing much older than stated age, in no acute distress. CARDIOVASCULAR: Normal rate and regular rhythm without murmurs, gallops, or rubs. RESPIRATORY: Rhonchi bilaterally. occ basal crackles. GASTROINTESTINAL: Abdomen soft, non-tender, non-distended. Normal active bowel sounds MUSCULOSKELETAL: Extremities without cyanosis, or edema. NEURO: Alert & Oriented x4 to person, place, time, situation. Right sided weakness, improving. Right side is no longer flaccid. RL 3/5. RUE 2/5.Right Facial palsy PSYCH: Appropriate mood and affect. Assessment and Plan Assessment and Plan GENERAL: 52 yo F, appearing much older than stated age, in no acute distress. CARDIOVASCULAR: Normal rate and regular rhythm without murmurs, gallops, or rubs. RESPIRATORY: Better air movement. Faint rhonchi bilaterally. No wheezing. GASTROINTESTINAL: Abdomen soft, non-tender, non-distended. Normal active bowel sounds MUSCULOSKELETAL: Extremities without cyanosis, or edema. NEURO: Alert & Oriented x4 to person, place, time, situation. Right sided weakness, improving. Right side is no longer flaccid. RL 3/5. RUE 2/5. Facial droop, slow speech. PSYCH: Appropriate mood and affect. A/P Problem List: (1) Respiratory failure ICD Code: J96.90 Status: Acute (2) Sepsis due to pneumonia ICD Code: J18.9 Status: Acute (3) HTN (hypertension) ICD Code: I10 Status: Acute (4) E. coli UTI 5. CVA with Right hemiparesis. Plan : 1. Wean O2 to 2 L. 2. Continue Nebs q6h.Duoneb. 3. Taper Solumedrol to 40 Mg q12h. 4. PT and OT Evaluation. 5. IS at bedside qid. 6. Continue antibiotics. 7. Transfer to [facility]. Ileana Branch MD May 21, 2017 12:37
[2017-05-21 13:27] LABS: FERRITIN 348 NG/ML (8-252); TRANSFERRIN IRON PROFILE 133 MG/DL (200-360)
[2017-05-21] MEDS: WARFARIN SOD 3 MG TAB PO SCH (14:47)
[2017-05-21] MEDS: NITROGLYCERIN-DEXTROSE INJ 250 ML IV SCH (15:38)
--- NOTE | 2017-05-21 16:05 | HHI.IDPN ---
Subjective Subjective Remarks Patient is a 52-year-old female, initially admitted at [facility] May 08 and she was diagnosed to have CVA. She had mostly right sided involvement. She went to [facility] on May 14. Apparently at [facility] she started having fevers and her chest x-ray showed evidence of pneumonia. Patient was ever has had some low-grade fevers even on her first hospitalization going back to [facility]. There was a urinalysis and culture from May 11 that had Escherichia coli. Patient was started on cefepime. Her fevers continue, and she developed increasing oxygen requirement, so she was transferred to the main hospital for further evaluation and treatment. Patient currently is on a facemask. She has some coughing, but has difficulty bringing up any sputum. She has some occasional sternal pain when she coughs. There's been no nausea or vomiting or any problems swallowing. She is on mechanical soft diet. Her WBC is normal. Her hemodynamics are stable. Notes reviewed Temps ok On 4L NC Not coughing much Sat up today No CP C/S normal mesfin Last CXR stable infiltrates Antibiotics Vanco Zosyn Lines PIV Past Medical History Hypertension Hyperlipidemia Lupus CVA with R sided weakness Anxiety Depression Past Surgical History Hernia repair section Hysterectomy Right shoulder ORIF Allergies: Coded Allergies: Bactrim (Verified Allergy, Severe, SKIN PROBLEMS, 05/14/17) Flu Vaccine (Verified Allergy, Severe, Respiratory Failure, 05/14/17) Objective . Vital Signs Date Time Temp Pulse Resp B/P Pulse Ox O2 Delivery O2 Flow Rate FiO2 05/21/17 11:27 77 05/21/17 11:26 98.4 78 16 149/82 97 05/21/17 08:21 97.9 86 14 171/90 94 05/21/17 08:21 94 Nasal Cannula 4.00 05/21/17 07:36 96 Nasal Cannula 4.00 05/21/17 07:27 80 05/21/17 07:05 14 05/21/17 04:59 95 Nasal Cannula 4.00 05/21/17 03:00 80 05/21/17 03:00 98.2 80 20 165/98 95 05/20/17 23:00 98.3 84 20 165/89 95 05/20/17 23:00 84 05/20/17 20:41 93 Nasal Cannula 5.00 05/20/17 19:00 97.8 84 20 153/84 95 05/20/17 19:00 95 Nasal Cannula 6.00 05/20/17 19:00 84 05/20/17 17:56 97 Nasal Cannula 6.00 05/20/17 17:45 97 Nasal Cannula 6.00 05/20/17 05/20/17 05/21/17 15:00 23:00 07:00 Intake Total 2950 ml 2002 ml Output Total 750 ml 550 ml Balance 2200 ml 1452 ml Intake Oral 1200 ml 660 ml IV Total 1750 ml 1342 ml Output Urine Total 750 ml 550 ml # Bowel Movements 1 2 . Laboratory Tests Test 05/20/17 05/21/17 05:40 04:26 White Blood Count 9.2 TH/MM3 13.9 TH/MM3 Red Blood Count 4.20 MIL/MM3 4.03 MIL/MM3 Hemoglobin 9.9 GM/DL 9.3 GM/DL Hematocrit 30.5 % 29.9 % Mean Corpuscular Volume 72.6 FL 74.1 FL Mean Corpuscular Hemoglobin 23.5 PG 23.0 PG Mean Corpuscular Hemoglobin 32.3 % 31.0 % Concent Red Cell Distribution Width 20.9 % 21.1 % Platelet Count 394 TH/MM3 434 TH/MM3 Mean Platelet Volume 7.5 FL 7.7 FL Neutrophils (%) (Auto) 86.1 % Lymphocytes (%) (Auto) 9.4 % Monocytes (%) (Auto) 4.3 % Eosinophils (%) (Auto) 0.0 % Basophils (%) (Auto) 0.2 % Neutrophils # (Auto) 12.0 TH/MM3 Lymphocytes # (Auto) 1.3 TH/MM3 Monocytes # (Auto) 0.6 TH/MM3 Eosinophils # (Auto) 0.0 TH/MM3 Basophils # (Auto) 0.0 TH/MM3 CBC Comment AUTO DIFF Differential Total Cells 100 Counted Neutrophils % (Manual) 94 % Band Neutrophils % 3 % Monocytes % 2 % Neutrophils # (Manual) 13.6 TH/MM3 Myelocytes 1 % Differential Comment FINAL DIFF MANUAL Platelet Estimate NORMAL Platelet Morphology Comment NORMAL Ovalocytes 1+ Laboratory Tests Test 05/20/17 05/20/17 05/21/17 05:40 23:15 04:26 Sodium Level 140 MEQ/L 140 MEQ/L Potassium Level 3.1 MEQ/L 3.8 MEQ/L 4.3 MEQ/L Chloride Level 106 MEQ/L 107 MEQ/L Carbon Dioxide Level 28.6 MEQ/L 25.1 MEQ/L Anion Gap 5 MEQ/L 8 MEQ/L Blood Urea Nitrogen 22 MG/DL 25 MG/DL Creatinine 0.61 MG/DL 0.60 MG/DL Estimat Glomerular Filtration 102 ML/MIN 104 ML/MIN Rate Random Glucose 116 MG/DL 108 MG/DL Calcium Level 8.1 MG/DL 8.1 MG/DL Phosphorus Level 2.5 MG/DL Magnesium Level 2.2 MG/DL Iron Level 62 MCG/DL Total Iron Binding Capacity 186 MCG/DL Percent Iron Saturation 33.3 % Ferritin 348 NG/ML Imaging Chest X-Ray 05/20/17 0600 Signed Impressions: Service Date/Time: Saturday, May 20, 2017 03:36 - CONCLUSION: Stable chest x-ray with small bilateral pleural effusions with airspace consolidation bilaterally. Padilla Peña MD Chest X-Ray 05/18/17 0800 Signed Impressions: Service Date/Time: Thursday, May 18, 2017 07:58 - CONCLUSION: Significant consolidation changes with air bronchograms left base and trace effusion on the right. I have no prior studies for comparison. Olaf Serrano MD FACR Physical Exam GENERAL: Patient is a thin, well-developed CF, awake and alert, NAD on nasal O2 SKIN: Warm and dry. No generalized rash HEAD: Atraumatic. Normocephalic. No temporal wasting, or tenderness. EYES: [place] conjunctiva. No petechia or hemorrhage. Pupils equal, round and reactive to light. No scleral icterus. No injection or drainage. EARS, NOSE AND THROAT: Nose without bleeding or purulent nasal discharge. No sinus tenderness. Mucous membranes pink and moist. No oral lesions noted. NECK: Trachea midline. Supple and not tender, no meningeal signs CARDIOVASCULAR: Regular rate and rhythm. No murmurs, rubs or gallops heard RESPIRATORY: Coarse BS bilaterally with some rhonchi on R, and decreased at bases, seem worse on L than on the R ABDOMEN: Soft, nondistended, bowel sounds present and normoactive, with tenderness on R side. No guarding. No rebound. No organomegaly. EXTREMITIES: No clubbing, cyanosis, or edema. No joint effusion. No calf tenderness. Well perfused and warm. NEUROLOGICAL: Awake and alert. Has decreased nasolabial fold on R, full EOM. RUE and RLE 0/5 motor strength, 5/5 on L side. Babinski R foot. PSYCHIATRIC: Normal affect, calm and cooperative. LINE: No evidence of infection : Ruelas in place, urine with some sediment Assessment & Plan Remarks IMPRESSION HCAP, patient has been in hospital setting since 05/08, had CVA with R sided involvement, dysarthria, and high risk for aspiration UTI, E coli Recent CVA Known Lupus Smoker, prob with COPD RECOMMENDATION Continue Zosyn Stop VAnco If stable, possibly change to oral Abx in next day or 2 and complete PNA Rx Monitor progress Beba Bray MD May 21, 2017 16:05
[2017-05-21] MEDS ORDERED: FERROUS SULFATE 325 MG (65 MG ELEMENTAL IRON) TAB PO SCH (17:00)
[2017-05-21] MEDS ORDERED: VANCOMYCIN INJ 1,250 MG in SODIUM CHLOR 0.9% 250 ML INJ 250 ML IV ONE (18:00)
[2017-05-21] MEDS: traZODone HCL 50 MG TAB PO SCH (21:13)
[2017-05-22] VITALS (28 sets, daily range): BP systolic 149–160; BP diastolic 74–94; PULSE 71–96; RESP 18–20; TEMP 98–98.7; O2SAT 93–96
[2017-05-22] MEDS: SODIUM CHLOR 0.9% 1000 ML INJ 1,000 ML IV SCH (00:20)
[2017-05-22] MEDS: PIPERACIL-TAZO 4.5 GM PREMIX 100 ML IV SCH ×3 (00:36→12:00)
[2017-05-22] MEDS: ALPRAZolam 1 MG TAB PO PRN ×4 (00:46→20:29)
[2017-05-22] MEDS: ACETAMINOPHEN/HYDROcodone 325 MG/5 MG TAB PO PRN ×4 (00:46→20:32)
[2017-05-22] MEDS: CHLORHEXIDINE GLUCONATE 2 % 1 PACK (2 CLOTHS)(taper/protocol) TOPICAL SCH (02:03)
[2017-05-22] MEDS: NITROGLYCERIN-DEXTROSE INJ 250 ML IV SCH ×2 (03:19→20:29)
[2017-05-22] MEDS: RESP: ALBUTEROL 2.5 MG/IPRATROPIUM 0.5 MG NEB (SCH) INH ×4 (04:02→20:52)
[2017-05-22] MEDS: GABAPENTIN 300 MG CAP PO SCH ×3 (06:26→20:29)
[2017-05-22] MEDS: METOPROLOL TARTRATE 25 MG TAB PO SCH (06:26)
--- NOTE | 2017-05-22 08:26 | HHI.PR ---
Subjective Remarks Patient in nad. Says she had multiple BM, loose, no diarrhea. No abd pain. No n/ v. Denies having any chest pain. With sob, improving. BP is controlled however she is still on nitro drip at 90 cc/hr. No fever or chills. Feels congestion in her chest. Objective Vitals Vital Signs Date Time Temp Pulse Resp B/P Pulse Ox O2 Delivery O2 Flow Rate FiO2 05/22/17 06:00 89 05/22/17 05:00 92 05/22/17 04:07 95 Nasal Cannula 2.00 05/22/17 04:04 87 05/22/17 03:00 86 05/22/17 03:00 98.7 86 18 149/87 95 05/22/17 02:00 87 05/22/17 01:00 92 05/22/17 00:00 96 05/21/17 23:11 99.3 96 20 164/90 92 05/21/17 23:00 94 05/21/17 22:00 94 05/21/17 21:55 93 Nasal Cannula 2.00 05/21/17 21:00 90 05/21/17 20:53 92 Nasal Cannula 2.00 05/21/17 20:53 98.6 90 20 166/94 92 05/21/17 17:01 88 05/21/17 16:14 93 Nasal Cannula 2.00 05/21/17 16:00 98.5 88 14 149/87 93 05/21/17 11:27 77 05/21/17 11:26 98.4 78 16 149/82 97 I/O 05/21/17 05/21/17 05/21/17 05/22/17 05/22/17 05/22/17 06:59 14:59 22:59 06:59 14:59 22:59 Intake Total 2002 ml 1707 ml 1688 ml Output Total 550 ml 450 ml 450 ml Balance 1452 ml 1257 ml 1238 ml Intake Oral 660 ml 740 ml 960 ml IV Total 1342 ml 967 ml 728 ml Output Urine Total 550 ml 450 ml 450 ml # Bowel Movements 2 2 3 Result Diagram: 05/21/1742505/21/17 0426 Imaging Last Impressions Chest X-Ray 05/20/17 0600 Signed Impressions: Service Date/Time: Saturday, May 20, 2017 03:36 - CONCLUSION: Stable chest x-ray with small bilateral pleural effusions with airspace consolidation bilaterally. Padilla Peña MD Objective Remarks GENERAL: 52 yo F, appearing much older than stated age, in no acute distress. CARDIOVASCULAR: Normal rate and regular rhythm without murmurs, gallops, or rubs. RESPIRATORY: Better air movement. Faint rhonchi bilaterally. No wheezing. GASTROINTESTINAL: Abdomen soft, non-tender, non-distended. Normal active bowel sounds MUSCULOSKELETAL: Extremities without cyanosis, or edema. NEURO: Alert & Oriented x4 to person, place, time, situation. Right sided weakness, improving. Right side is no longer flaccid. RL 3/5. RUE 2/5. Facial droop, slow speech. PSYCH: Appropriate mood and affect. A/P Problem List: (1) Respiratory failure ICD Code: J96.90 Status: Acute (2) Sepsis due to pneumonia ICD Code: J18.9 Status: Acute (3) HTN (hypertension) ICD Code: I10 Status: Acute (4) E. coli UTI ICD Code: N39.0 Status: Acute Assessment and Plan 52-year-old female status post basal ganglia and left pontine CVA with worsening respiratory failure secondary to pneumonia and sepsis. Patient is being admitted from [facility] to ICU for treatment. Sepsis due to pneumonia: HCAP Acute respiratory failure requiring high flow NC and BiPAP. Titrate down as tolerated. Currently on 2L by NC. Repeat Chest x-ray reviewed, shows some improvement. Continue antibiotics with Zosyn and vancomycin, appreciate infectious disease following. Follow cultures. Sputum culture when the patient is able to expectorate. Appreciate Pulmonology recommendations. On high flow nasal canula. Probable underlying COPD. DW RN to titrate wean off high flow nasal cannula as tolerated. Scheduled DuoNeb treatments Solu-Medrol IV, taper as tolerated. BiPAP as needed. Right basal ganglia infarct and left pontine CVA Status post TPA and currently on Coumadin and Plavix. Monitor closely INR Pharmacy following. Continue Lipitor Microcytic Anemia, acute on chronic Hemoglobin 7.5 on admission s/p 1 unit of PRBC-->9.7>>7.8>>9.2: No active source of bleeding identified. Status post IV Venofer. Monitor H/H and transfuse if HGB< 7 or if patient symptomatic and HGB<9 Continue with by mouth Ferrous sulfate twice a day Follow CBC Hemoccult stool neg Urinary tract infection: E coli UTI. Abx as above. Anxiety/depression: Continue with Zoloft Hypokalemia: Replace and monitor. Hyperlipidemia. On Pravastatin Hypertension, uncontrolled. She is still requiring nitro drip at 90 cc/hr,. wean as tolerated keep SBP < 140. Titrate down as tolerated. Increased Metoprolol to 50 mg BID. Continue amlodipine 10 mg PO daily. Hydralazine and labetalol as needed. Continue to monitor closely and adjust meds as indicated. History of hepatitis C. Chronic DVT prophylaxis: On Coumadin Discharge Planning Pending improvement. Discussed with the patient, nurse Prema Stover MD May 22, 2017 08:26
[2017-05-22] MEDS: PRAVASTATIN SOD 40 MG TAB PO SCH (09:36)
[2017-05-22] MEDS: SERTRALINE HCL 50 MG TAB PO SCH (09:36)
[2017-05-22] MEDS: CLOPIDOGREL 75 MG TAB PO SCH (09:36)
[2017-05-22] MEDS: buPROPion HCL 150 MG SUSTAINED RELEASE TAB PO SCH ×2 (09:36→20:29)
[2017-05-22] MEDS: SODIUM CHLORIDE 0.9% FLUSH 10 ML FLUSH IV FLUSH SCH ×2 (09:36→20:30)
[2017-05-22] MEDS: PANTOPRAZOLE SOD 40 MG DELAYED RELEASE TAB PO SCH (09:36)
[2017-05-22] MEDS: methylPREDNISolone SOD SUCC 40 MG/1 ML VIAL IV SCH ×2 (09:36→20:30)
[2017-05-22 10:02] LABS: INTERNATIONAL NORMALIZED RATIO 2.7 RATIO; PROTHROMBIN TIME - PATIENT 31.7 SEC (9.8-11.6)
[2017-05-22] MEDS ORDERED: METOPROLOL TARTRATE 25 MG TAB PO ONE (10:15)
[2017-05-22] MEDS: FERROUS SULFATE 325 MG (65 MG ELEMENTAL IRON) TAB PO SCH ×2 (13:53→17:00)
[2017-05-22] MEDS ORDERED: WARFARIN SOD 1 MG TAB PO ONE (16:00)
--- NOTE | 2017-05-22 16:22 | HHI.IDPN ---
Subjective Subjective Remarks Patient is a 52-year-old female, initially admitted at [place] May 08 and she was diagnosed to have CVA. She had mostly right sided involvement. She went to [facility] on May 14. Apparently at [facility] she started having fevers and her chest x-ray showed evidence of pneumonia. Patient was ever has had some low-grade fevers even on her first hospitalization going back to [facility]. There was a urinalysis and culture from May 11 that had Escherichia coli. Patient was started on cefepime. Her fevers continue, and she developed increasing oxygen requirement, so she was transferred to the main hospital for further evaluation and treatment. Patient currently is on a facemask. She has some coughing, but has difficulty bringing up any sputum. She has some occasional sternal pain when she coughs. There's been no nausea or vomiting or any problems swallowing. She is on mechanical soft diet. Her WBC is normal. Her hemodynamics are stable. Notes reviewed Breathing is better Temps ok O2 down to 2L NC Not coughing much Sat up today No CP C/S normal mesfin Last CXR stable infiltrates Antibiotics Zosyn Lines PIV Past Medical History Hypertension Hyperlipidemia Lupus CVA with R sided weakness Anxiety Depression Past Surgical History Hernia repair section Hysterectomy Right shoulder ORIF Allergies: Coded Allergies: Bactrim (Verified Allergy, Severe, SKIN PROBLEMS, 05/14/17) Flu Vaccine (Verified Allergy, Severe, Respiratory Failure, 05/14/17) Objective . Vital Signs Date Time Temp Pulse Resp B/P Pulse Ox O2 Delivery O2 Flow Rate FiO2 05/22/17 15:00 87 05/22/17 14:53 18 05/22/17 14:00 92 05/22/17 13:00 78 05/22/17 12:00 87 05/22/17 11:00 98.7 86 18 159/74 94 05/22/17 11:00 88 05/22/17 10:24 93 Nasal Cannula 2.00 05/22/17 10:00 89 05/22/17 09:00 96 05/22/17 08:00 90 05/22/17 07:00 98.0 87 20 160/90 96 05/22/17 07:00 88 05/22/17 07:00 96 Nasal Cannula 2.00 05/22/17 06:00 89 05/22/17 05:00 92 05/22/17 04:07 95 Nasal Cannula 2.00 05/22/17 04:04 87 05/22/17 03:00 86 05/22/17 03:00 98.7 86 18 149/87 95 05/22/17 02:00 87 05/22/17 01:00 92 05/22/17 00:00 96 05/21/17 23:11 99.3 96 20 164/90 92 05/21/17 23:00 94 05/21/17 22:00 94 05/21/17 21:55 93 Nasal Cannula 2.00 05/21/17 21:00 90 05/21/17 20:53 92 Nasal Cannula 2.00 05/21/17 20:53 98.6 90 20 166/94 92 05/21/17 17:01 88 05/21/17 05/21/17 05/22/17 15:00 23:00 07:00 Intake Total 1707 ml 1688 ml Output Total 450 ml 450 ml Balance 1257 ml 1238 ml Intake Oral 740 ml 960 ml IV Total 967 ml 728 ml Output Urine Total 450 ml 450 ml # Bowel Movements 2 3 . Laboratory Tests Test 05/21/17 04:26 White Blood Count 13.9 TH/MM3 Red Blood Count 4.03 MIL/MM3 Hemoglobin 9.3 GM/DL Hematocrit 29.9 % Mean Corpuscular Volume 74.1 FL Mean Corpuscular Hemoglobin 23.0 PG Mean Corpuscular Hemoglobin 31.0 % Concent Red Cell Distribution Width 21.1 % Platelet Count 434 TH/MM3 Mean Platelet Volume 7.7 FL Neutrophils (%) (Auto) 86.1 % Lymphocytes (%) (Auto) 9.4 % Monocytes (%) (Auto) 4.3 % Eosinophils (%) (Auto) 0.0 % Basophils (%) (Auto) 0.2 % Neutrophils # (Auto) 12.0 TH/MM3 Lymphocytes # (Auto) 1.3 TH/MM3 Monocytes # (Auto) 0.6 TH/MM3 Eosinophils # (Auto) 0.0 TH/MM3 Basophils # (Auto) 0.0 TH/MM3 CBC Comment AUTO DIFF Differential Total Cells 100 Counted Neutrophils % (Manual) 94 % Band Neutrophils % 3 % Monocytes % 2 % Neutrophils # (Manual) 13.6 TH/MM3 Myelocytes 1 % Differential Comment FINAL DIFF MANUAL Platelet Estimate NORMAL Platelet Morphology Comment NORMAL Ovalocytes 1+ Laboratory Tests Test 05/20/17 05/21/17 23:15 04:26 Potassium Level 3.8 MEQ/L 4.3 MEQ/L Sodium Level 140 MEQ/L Chloride Level 107 MEQ/L Carbon Dioxide Level 25.1 MEQ/L Anion Gap 8 MEQ/L Blood Urea Nitrogen 25 MG/DL Creatinine 0.60 MG/DL Estimat Glomerular Filtration 104 ML/MIN Rate Random Glucose 108 MG/DL Calcium Level 8.1 MG/DL Magnesium Level 2.2 MG/DL Iron Level 62 MCG/DL Total Iron Binding Capacity 186 MCG/DL Percent Iron Saturation 33.3 % Ferritin 348 NG/ML Imaging Chest X-Ray 05/20/17 0600 Signed Impressions: Service Date/Time: Saturday, May 20, 2017 03:36 - CONCLUSION: Stable chest x-ray with small bilateral pleural effusions with airspace consolidation bilaterally. Padilla Peña MD Chest X-Ray 05/18/17 0800 Signed Impressions: Service Date/Time: Thursday, May 18, 2017 07:58 - CONCLUSION: Significant consolidation changes with air bronchograms left base and trace effusion on the right. I have no prior studies for comparison. Olaf Serrano MD FACR Physical Exam GENERAL: awake and alert, NAD on nasal O2 SKIN: Warm and dry. No generalized rash HEAD: Atraumatic. Normocephalic. No temporal wasting, or tenderness. EYES: [place] conjunctiva. No petechia or hemorrhage. Pupils equal, round and reactive to light. No scleral icterus. No injection or drainage. EARS, NOSE AND THROAT: Nose without bleeding or purulent nasal discharge. Mucous membranes pink and moist. No oral lesions noted. NECK: Trachea midline. Supple and not tender, no meningeal signs CARDIOVASCULAR: Regular rate and rhythm. No murmurs, rubs or gallops heard RESPIRATORY: Coarse BS bilaterally, decreased at bases ABDOMEN: Soft, nondistended, bowel sounds present and normoactive, with tenderness on R side. No guarding. No rebound. No organomegaly. EXTREMITIES: No clubbing, cyanosis, or edema. No joint effusion. No calf tenderness. Well perfused and warm. NEUROLOGICAL: Awake and alert. Has decreased nasolabial fold on R, full EOM. RUE and RLE 0/5 motor strength, 5/5 on L side. Babinski R foot. PSYCHIATRIC: Normal affect, calm and cooperative. LINE: No evidence of infection : Ruelas in place, urine with some sediment Assessment & Plan Remarks IMPRESSION HCAP, patient has been in hospital setting since 05/08, had CVA with R sided involvement, dysarthria, and high risk for aspiration UTI, E coli Recent CVA Known Lupus Smoker, prob with COPD RECOMMENDATION Change to Augmentin and give 7 more days of Abx Stop Zosyn She clinically doing well from ID standpoint I will be available prn Please call if with any new ID issue or question Beba Bray MD May 22, 2017 16:22
[2017-05-22] MEDS: AMOXICILLIN/CLAVUL SUSP 250 MG/5 ML 100 ML BTL PO SCH ×2 (17:00→20:31)
[2017-05-22] MEDS: traZODone HCL 50 MG TAB PO SCH (20:30)
[2017-05-22] MEDS: METOPROLOL TARTRATE 50 MG TAB PO SCH (20:30)
[2017-05-23] VITALS (27 sets, daily range): BP systolic 142–157; BP diastolic 78–95; PULSE 80–92; RESP 16–20; TEMP 98.2–99; O2SAT 94–98
[2017-05-23] MEDS: ACETAMINOPHEN/HYDROcodone 325 MG/5 MG TAB PO PRN ×2 (01:50→11:20)
[2017-05-23] MEDS: RESP: ALBUTEROL 2.5 MG/IPRATROPIUM 0.5 MG NEB (SCH) INH ×4 (03:46→19:21)
[2017-05-23] MEDS: ALPRAZolam 1 MG TAB PO PRN ×2 (04:31→15:45)
[2017-05-23] MEDS: NITROGLYCERIN-DEXTROSE INJ 250 ML IV SCH ×2 (04:37→13:50)
[2017-05-23] MEDS: GABAPENTIN 300 MG CAP PO SCH ×3 (05:52→22:13)
[2017-05-23] MEDS: AMOXICILLIN/CLAVUL SUSP 250 MG/5 ML 100 ML BTL PO SCH ×3 (05:52→22:12)
[2017-05-23 07:33] LABS: INTERNATIONAL NORMALIZED RATIO 2.3 RATIO; PROTHROMBIN TIME - PATIENT 25.8 SEC (9.8-11.6)
--- NOTE | 2017-05-23 08:28 | HHI.PR ---
Subjective Remarks In bed, she is with less sob feels congesterd not much cough. Feels weak. Did have a BM. No n/v/d/c. no more headache. BP is into a higher side. Will add PO antihypertensive. Objective Vitals Vital Signs Date Time Temp Pulse Resp B/P Pulse Ox O2 Delivery O2 Flow Rate FiO2 05/23/17 06:00 84 05/23/17 05:00 82 05/23/17 04:30 82 18 145/88 98 05/23/17 04:00 80 05/23/17 03:00 80 05/23/17 02:00 82 05/23/17 01:00 80 05/23/17 00:11 98.2 86 18 157/90 95 05/23/17 00:00 84 05/22/17 23:00 88 05/22/17 22:00 88 05/22/17 21:00 86 05/22/17 20:52 93 Nasal Cannula 2.00 05/22/17 20:00 88 05/22/17 19:35 98.2 89 20 158/84 94 05/22/17 19:35 94 Nasal Cannula 2.00 40 05/22/17 19:00 86 05/22/17 18:00 71 05/22/17 17:00 72 05/22/17 16:00 75 05/22/17 15:00 98.7 86 18 159/94 94 05/22/17 15:00 87 05/22/17 14:53 18 05/22/17 14:00 92 05/22/17 13:00 78 05/22/17 12:00 87 05/22/17 11:00 98.7 86 18 159/74 94 05/22/17 11:00 88 05/22/17 10:24 93 Nasal Cannula 2.00 05/22/17 10:00 89 05/22/17 09:00 96 I/O 05/22/17 05/22/17 05/22/17 05/23/17 05/23/17 05/23/17 07:00 15:00 23:00 07:00 15:00 23:00 Intake Total 1688 ml 360 ml 824 ml Output Total 450 ml 300 ml 900 ml Balance 1238 ml 60 ml -76 ml Intake Oral 960 ml 360 ml 500 ml IV Total 728 ml 324 ml Output Urine Total 450 ml 300 ml 900 ml # Bowel Movements 3 3 Result Diagram: 05/21/17 0426 05/21/17 0426 Imaging Last Impressions Chest X-Ray 05/20/17 0600 Signed Impressions: Service Date/Time: Thursday, May 20, 2017 03:36 - CONCLUSION: Stable chest x-ray with small bilateral pleural effusions with airspace consolidation bilaterally. Padilla Peña MD Objective Remarks GENERAL: 52 yo F, appearing much older than stated age, in no acute distress. CARDIOVASCULAR: Normal rate and regular rhythm without murmurs, gallops, or rubs. RESPIRATORY: Better air movement. Faint rhonchi bilaterally. No wheezing. GASTROINTESTINAL: Abdomen soft, non-tender, non-distended. Normal active bowel sounds MUSCULOSKELETAL: Extremities without cyanosis, or edema. NEURO: Alert & Oriented x4 to person, place, time, situation. Right sided weakness, improving. Right side is no longer flaccid. RL 3/5. RUE 2/5. Facial droop, slow speech. PSYCH: Appropriate mood and affect. A/P Problem List: (1) Respiratory failure ICD Code: J96.90 Status: Acute (2) Sepsis due to pneumonia ICD Code: J18.9 Status: Acute (3) HTN (hypertension) ICD Code: I10 Status: Acute (4) E. coli UTI ICD Code: N39.0 Status: Acute Assessment and Plan 52-year-old female status post basal ganglia and left pontine CVA with worsening respiratory failure secondary to pneumonia and sepsis. Patient is being admitted from [facility] to ICU for treatment. Sepsis due to pneumonia: HCAP Acute respiratory failure requiring high flow NC and BiPAP. Titrate down as tolerated. Currently on 2L by NC. Repeat Chest x-ray reviewed, shows some improvement. Received Zosyn and vancomycin, appreciate infectious disease following. Change to Augmentin and give 7 days of Abx per ID specialist po. Follow cultures. Sputum culture when the patient is able to expectorate. Appreciate Pulmonology recommendations. On high flow nasal canula. Probable underlying COPD. DENISSE RN to titrate wean off high flow nasal cannula as tolerated. Scheduled DuoNeb treatments Solu-Medrol IV, taper as tolerated. BiPAP as needed. Right basal ganglia infarct and left pontine CVA Status post TPA and currently on Coumadin and Plavix. Monitor closely INR Pharmacy following. Continue Lipitor Microcytic Anemia, acute on chronic Hemoglobin 7.5 on admission s/p 1 unit of PRBC-->9.7>>7.8>>9.2: No active source of bleeding identified. Status post IV Venofer. Monitor H/H and transfuse if HGB< 7 or if patient symptomatic and HGB<9 Continue with by mouth Ferrous sulfate twice a day Follow CBC Hemoccult stool neg Urinary tract infection: E coli UTI. Abx as above. Anxiety/depression: Continue with Zoloft Hypokalemia: Replace and monitor. Hyperlipidemia. On Pravastatin Hypertension, uncontrolled. She is still requiring nitro drip at 90 cc/hr,. wean as tolerated keep SBP < 140. Titrate down as tolerated. Increased Metoprolol to 50 mg BID. Add lisinopril 5 mg PO Daily. Add Hydralazine 25 mg po tid , monitor BP. Continue amlodipine 10 mg PO daily. Hydralazine and labetalol as needed. Continue to monitor closely and adjust meds as indicated. History of hepatitis C. Chronic DVT prophylaxis: On Coumadin Discharge Planning Pending improvement. Discussed with the patient, nurse Prema Stover MD May 23, 2017 08:28
[2017-05-23] MEDS: methylPREDNISolone SOD SUCC 40 MG/1 ML VIAL IV SCH (09:31)
[2017-05-23] MEDS: buPROPion HCL 150 MG SUSTAINED RELEASE TAB PO SCH ×2 (09:31→22:13)
[2017-05-23] MEDS: PRAVASTATIN SOD 40 MG TAB PO SCH (09:31)
[2017-05-23] MEDS: PANTOPRAZOLE SOD 40 MG DELAYED RELEASE TAB PO SCH (09:32)
[2017-05-23] MEDS: SERTRALINE HCL 50 MG TAB PO SCH (09:32)
[2017-05-23] MEDS: METOPROLOL TARTRATE 50 MG TAB PO SCH ×2 (09:32→22:13)
[2017-05-23] MEDS: CLOPIDOGREL 75 MG TAB PO SCH (09:37)
[2017-05-23] MEDS: SODIUM CHLORIDE 0.9% FLUSH 10 ML FLUSH IV FLUSH SCH ×2 (09:38→22:17)
[2017-05-23] MEDS: FERROUS SULFATE 325 MG (65 MG ELEMENTAL IRON) TAB PO SCH ×2 (11:20→16:25)
[2017-05-23] MEDS: cloNIDine HCL 0.1 MG TAB PO PRN (14:12)
--- NOTE | 2017-05-23 14:54 | HHI.PR ---
Subjective Remarks Doing better. Wants more pain meds. On O2 at 2L and sats 95. Good output. Right side weakness improved Objective Vital Signs Date Time Temp Pulse Resp B/P Pulse Ox O2 Delivery O2 Flow Rate FiO2 05/23/17 13:00 86 05/23/17 12:00 86 05/23/17 11:30 98.8 88 16 154/86 96 05/23/17 11:30 96 Nasal Cannula 2.00 05/23/17 11:00 88 05/23/17 10:00 88 05/23/17 09:00 84 05/23/17 08:56 97 Nasal Cannula 2.00 05/23/17 08:00 84 05/23/17 07:50 99.0 84 18 155/95 95 05/23/17 07:20 84 05/23/17 07:20 96 Nasal Cannula 2.00 05/23/17 07:20 99.0 84 18 155/95 95 05/23/17 06:00 84 05/23/17 05:00 82 05/23/17 04:30 82 18 145/88 98 05/23/17 04:00 80 05/23/17 03:00 80 05/23/17 02:00 82 05/23/17 01:00 80 05/23/17 00:11 98.2 86 18 157/90 95 05/23/17 00:00 84 05/22/17 23:00 88 05/22/17 22:00 88 05/22/17 21:00 86 05/22/17 20:52 93 Nasal Cannula 2.00 05/22/17 20:00 88 05/22/17 19:35 98.2 89 20 158/84 94 05/22/17 19:35 94 Nasal Cannula 2.00 40 05/22/17 19:00 86 05/22/17 18:00 71 05/22/17 17:00 72 05/22/17 16:00 75 05/22/17 15:00 98.7 86 18 159/94 94 05/22/17 15:00 87 05/22/17 14:53 18 I/O 05/22/17 05/22/17 05/22/17 05/23/17 05/23/17 05/23/17 07:00 15:00 23:00 07:00 15:00 23:00 Intake Total 1688 ml 360 ml 824 ml Output Total 450 ml 300 ml 900 ml Balance 1238 ml 60 ml -76 ml Intake Oral 960 ml 360 ml 500 ml IV Total 728 ml 324 ml Output Urine Total 450 ml 300 ml 900 ml # Bowel Movements 3 3 Result Diagram: 05/21/1742505/21/17425 Objective Remarks GENERAL: 52 yo F, appearing much older than stated age, in no acute distress. CARDIOVASCULAR: Normal rate and regular rhythm without murmurs, gallops, or rubs. RESPIRATORY: Rhonchi bilaterally. No Crackles GASTROINTESTINAL: Abdomen soft, non-tender, non-distended. Normal active bowel sounds MUSCULOSKELETAL: Extremities without cyanosis, or edema. NEURO: Alert & Oriented x4 to person, place, time, situation. Right sided weakness, improving. Right side is no longer flaccid. RL 3/5. RUE 2/5. PSYCH: Appropriate mood and affect. Assessment and Plan Assessment and Plan GENERAL: 52 yo F, appearing much older than stated age, in no acute distress. CARDIOVASCULAR: Normal rate and regular rhythm without murmurs, gallops, or rubs. RESPIRATORY: Better air movement. Faint rhonchi bilaterally. No wheezing. GASTROINTESTINAL: Abdomen soft, non-tender, non-distended. Normal active bowel sounds MUSCULOSKELETAL: Extremities without cyanosis, or edema. NEURO: Alert & Oriented x4 to person, place, time, situation. Right sided weakness, improving. Right side is no longer flaccid. RL 3/5. RUE 2/5. Facial droop, slow speech. PSYCH: Appropriate mood and affect. A/P Problem List: (1) Respiratory failure ICD Code: J96.90 Status: Acute (2) Sepsis due to pneumonia ICD Code: J18.9 Status: Acute (3) HTN (hypertension) ICD Code: I10 Status: Acute (4) E. coli UTI 5. CVA with Right hemiparesis. Plan : 1. Wean O2 to 2 L. 2. Continue Nebs q6h.Duoneb. 3. D/C Solumedrol 4. PT and OT Evaluation. 5. IS at bedside qid. 6. Continue antibiotics. 7. Add [place] 7.5 mg q6h prn. Ileana Branch MD May 23, 2017 14:54
[2017-05-23] MEDS ORDERED: LISINOPRIL 5 MG TAB PO ONE (15:00)
[2017-05-23] MEDS ORDERED: ACETAMINOPHEN/HYDROcodone 325 MG/7.5 MG TAB PO PRN (15:00)
[2017-05-23] MEDS: WARFARIN SOD 3 MG TAB PO SCH (15:45)
[2017-05-23] MEDS: hydrALAZINE HCL 25 MG TAB PO SCH ×2 (15:45→22:16)
[2017-05-23] MEDS: ACETAMINOPHEN/HYDROcodone 325 MG/7.5 MG TAB PO PRN (16:25)
[2017-05-23] MEDS: LABETALOL HCL 100 MG/20 ML VIAL IV PUSH PRN (17:49)
[2017-05-23] MEDS: traZODone HCL 50 MG TAB PO SCH (22:16)
[2017-05-24] VITALS (31 sets, daily range): BP systolic 138–161; BP diastolic 67–88; PULSE 80–98; RESP 16–18; TEMP 97.8–99.1; O2SAT 93–96
[2017-05-24] MEDS: ALPRAZolam 1 MG TAB PO PRN ×3 (00:13→21:53)
[2017-05-24] MEDS: ACETAMINOPHEN/HYDROcodone 325 MG/7.5 MG TAB PO PRN ×4 (00:13→21:53)
[2017-05-24] MEDS: RESP: ALBUTEROL 2.5 MG/IPRATROPIUM 0.5 MG NEB (SCH) INH ×4 (04:00→19:41)
[2017-05-24 05:59] LABS: INTERNATIONAL NORMALIZED RATIO 1.5 RATIO; PROTHROMBIN TIME - PATIENT 17.1 SEC (9.8-11.6)
[2017-05-24] MEDS: GABAPENTIN 300 MG CAP PO SCH ×3 (07:14→21:52)
[2017-05-24] MEDS: AMOXICILLIN/CLAVUL SUSP 250 MG/5 ML 100 ML BTL PO SCH ×3 (07:15→21:54)
[2017-05-24] MEDS: hydrALAZINE HCL 25 MG TAB PO SCH ×3 (07:15→21:52)
[2017-05-24] MEDS: NITROGLYCERIN-DEXTROSE INJ 250 ML IV SCH (07:17)
[2017-05-24] MEDS ORDERED: LISINOPRIL 5 MG TAB PO SCH (09:00)
[2017-05-24] MEDS: predniSONE 10 MG TAB PO SCH (09:12)
[2017-05-24] MEDS: SERTRALINE HCL 50 MG TAB PO SCH (09:12)
[2017-05-24] MEDS: CLOPIDOGREL 75 MG TAB PO SCH (09:12)
[2017-05-24] MEDS: METOPROLOL TARTRATE 50 MG TAB PO SCH ×2 (09:12→21:52)
[2017-05-24] MEDS: buPROPion HCL 150 MG SUSTAINED RELEASE TAB PO SCH ×2 (09:13→21:53)
[2017-05-24] MEDS: PRAVASTATIN SOD 40 MG TAB PO SCH (09:13)
[2017-05-24] MEDS: PANTOPRAZOLE SOD 40 MG DELAYED RELEASE TAB PO SCH (09:13)
[2017-05-24] MEDS: FERROUS SULFATE 325 MG (65 MG ELEMENTAL IRON) TAB PO SCH ×2 (14:06→19:29)
[2017-05-24] MEDS: SODIUM CHLORIDE 0.9% FLUSH 10 ML FLUSH IV FLUSH SCH (14:07)
--- NOTE | 2017-05-24 14:46 | HHI.PR ---
Subjective Remarks Doing much better. On O2 at 2L and sats 98. Right side weakness improved. Taking her diet. Objective Vital Signs Date Time Temp Pulse Resp B/P Pulse Ox O2 Delivery O2 Flow Rate FiO2 05/24/17 09:31 94 Nasal Cannula 2.00 05/24/17 07:30 98.4 82 16 141/75 96 05/24/17 07:30 82 05/24/17 07:30 96 Nasal Cannula 2.00 05/24/17 05:00 85 05/24/17 04:43 98.7 83 18 138/74 95 05/24/17 04:32 99 Nasal Cannula 2.00 05/24/17 04:00 83 05/24/17 03:00 85 05/24/17 02:00 88 05/24/17 01:00 88 05/24/17 00:23 98.7 89 18 152/81 94 05/24/17 00:00 89 05/23/17 19:21 94 Nasal Cannula 2.00 05/23/17 19:00 94 Nasal Cannula 2.00 05/23/17 19:00 98.9 92 20 142/80 94 05/23/17 18:00 87 05/23/17 17:30 157/78 05/23/17 17:00 92 05/23/17 16:00 86 05/23/17 15:50 05/23/17 15:50 86 I/O 05/23/17 05/23/17 05/23/17 05/24/17 05/24/17 05/24/17 06:59 14:59 22:59 06:59 14:59 22:59 Intake Total 824 ml 1132 ml 1440 ml Output Total 900 ml 600 ml 1250 ml Balance -76 ml 532 ml 190 ml Intake Oral 500 ml 840 ml 240 ml IV Total 324 ml 292 ml 1200 ml Output Urine Total 900 ml 600 ml 1250 ml # Bowel Movements 3 2 Result Diagram: 05/21/17 0426 05/21/17425 Objective Remarks GENERAL: 52 yo F, appearing much older than stated age, in no acute distress. CARDIOVASCULAR: Normal rate and regular rhythm without murmurs, gallops, or rubs. RESPIRATORY: Rhonchi bilaterally. No Crackles GASTROINTESTINAL: Abdomen soft, non-tender, non-distended. Normal active bowel sounds. NO mass. MUSCULOSKELETAL: Extremities without cyanosis, or edema. NEURO: Alert & Oriented x4 to person, place, time, situation. Right sided weakness, improving. Right side is no longer flaccid. PSYCH: Appropriate mood and affect. Assessment and Plan Assessment and Plan A/P Problem List: (1) Respiratory failure ICD Code: J96.90 Status: Acute (2) Sepsis due to pneumonia ICD Code: J18.9 Status: Acute Plan 1. IS at bedside q3h. 2. O2 at 2 L. 3. Continue PT and OT. 4. Continue diuretic. 5. To rehab soon. (3) HTN (hypertension) ICD Code: I10 Status: Acute (4) E. coli UTI 5. CVA with Right hemiparesis. Plan : 1. Wean O2 to 2 L. 2. Continue Nebs q6h.Duoneb. 3. D/C Solumedrol 4. PT and OT Evaluation. 5. IS at bedside qid. 6. Continue antibiotics. 7. Add [place] 7.5 mg q6h prn. Ileana Branch MD May 24, 2017 14:46
[2017-05-24] MEDS ORDERED: WARFARIN SOD 5 MG TAB PO ONE (16:00)
--- NOTE | 2017-05-24 16:49 | HHI.PR ---
Subjective Remarks The patient was seen earlier today. She seemed bed says she is having more congestion and chest, she is not able to cough anything up. She is using incentive spirometry and Acapella. No fever or chills. She is saturating well on 2 L by nasal cannula. Right side arm and leg are weak says is improving somehow but not significantly. No new motor deficit. Denies headaches or change in vision. She is able to swallow problems. No nausea or vomiting. Had 2 bowel movements yesterday, no diarrhea. BP into a higher side increase lisinopril. Objective Vitals Vital Signs Date Time Temp Pulse Resp B/P Pulse Ox O2 Delivery O2 Flow Rate FiO2 05/24/17 16:00 87 05/24/17 15:30 96 Nasal Cannula 2.00 05/24/17 15:30 97.8 82 16 153/81 96 05/24/17 15:00 82 05/24/17 14:00 82 05/24/17 13:00 82 05/24/17 12:00 82 05/24/17 11:15 95 Nasal Cannula 2.00 05/24/17 11:15 98.8 82 16 148/67 95 05/24/17 11:00 80 05/24/17 10:00 82 05/24/17 09:31 94 Nasal Cannula 2.00 05/24/17 09:00 84 05/24/17 08:00 84 05/24/17 07:30 98.4 82 16 141/75 96 05/24/17 07:30 82 05/24/17 07:30 96 Nasal Cannula 2.00 05/24/17 05:00 85 05/24/17 04:43 98.7 83 18 138/74 95 05/24/17 04:32 99 Nasal Cannula 2.00 05/24/17 04:00 83 05/24/17 03:00 85 05/24/17 02:00 88 05/24/17 01:00 88 05/24/17 00:23 98.7 89 18 152/81 94 05/24/17 00:00 89 05/23/17 19:21 94 Nasal Cannula 2.00 05/23/17 19:00 94 Nasal Cannula 2.00 05/23/17 19:00 98.9 92 20 142/80 94 05/23/17 18:00 87 05/23/17 17:30 157/78 05/23/17 17:00 92 I/O 05/23/17 05/23/17 05/23/17 05/24/17 05/24/17 05/24/17 06:59 14:59 22:59 06:59 14:59 22:59 Intake Total 824 ml 1132 ml 1440 ml Output Total 900 ml 600 ml 1250 ml Balance -76 ml 532 ml 190 ml Intake Oral 500 ml 840 ml 240 ml IV Total 324 ml 292 ml 1200 ml Output Urine Total 900 ml 600 ml 1250 ml # Bowel Movements 3 2 Result Diagram: 05/21/17 0426 05/21/17 0426 Imaging Last Impressions Chest X-Ray 05/20/17 0600 Signed Impressions: Service Date/Time: Saturday, May 20, 2017 03:36 - CONCLUSION: Stable chest x-ray with small bilateral pleural effusions with airspace consolidation bilaterally. Padilla Peña MD Objective Remarks GENERAL: 52 yo F, appearing much older than stated age, in no acute distress. CARDIOVASCULAR: Normal rate and regular rhythm without murmurs, gallops, or rubs. RESPIRATORY: Better air movement. Faint rhonchi bilaterally. No wheezing. GASTROINTESTINAL: Abdomen soft, non-tender, non-distended. Normal active bowel sounds MUSCULOSKELETAL: Extremities without cyanosis, or edema. NEURO: Alert & Oriented x4 to person, place, time, situation. Right sided weakness, improving. Right side is no longer flaccid. RL 3/5. RUE 2/5. Facial droop, slow speech. PSYCH: Appropriate mood and affect. A/P Problem List: (1) Respiratory failure ICD Code: J96.90 Status: Acute (2) Sepsis due to pneumonia ICD Code: J18.9 Status: Acute (3) HTN (hypertension) ICD Code: I10 Status: Acute (4) E. coli UTI ICD Code: N39.0 Status: Acute Assessment and Plan 52-year-old female status post basal ganglia and left pontine CVA with worsening respiratory failure secondary to pneumonia and sepsis. Patient is being admitted from [facility] to ICU for treatment. Sepsis due to pneumonia: HCAP Acute respiratory failure requiring high flow NC and BiPAP. Titrate down as tolerated. Currently on 2L by NC. Repeat Chest x-ray reviewed, shows some improvement. Received Zosyn and vancomycin, appreciate infectious disease following. Change to Augmentin and give for 7 days of Abx per ID specialist po. Follow cultures. Sputum culture when the patient is able to expectorate. Appreciate Pulmonology recommendations. On high flow nasal canula. Probable underlying COPD. DW RN to titrate wean off high flow nasal cannula as tolerated. Scheduled DuoNeb treatments Solu-Medrol IV, taper as tolerated. BiPAP as needed. Right basal ganglia infarct and left pontine CVA Status post TPA and currently on Coumadin and Plavix. Monitor closely INR Pharmacy following. Continue Lipitor Microcytic Anemia, acute on chronic Hemoglobin 7.5 on admission s/p 1 unit of PRBC-->9.7>>7.8>>9.2: No active source of bleeding identified. Status post IV Venofer. Monitor H/H and transfuse if HGB< 7 or if patient symptomatic and HGB<9 Continue with by mouth Ferrous sulfate twice a day Follow CBC Hemoccult stool neg Urinary tract infection: E coli UTI. Abx as above. Anxiety/depression: Continue with Zoloft Hypokalemia: Replace and monitor. Hyperlipidemia. On Pravastatin Hypertension, uncontrolled. She is still requiring. wean as tolerated keep SBP < 140. Titrate down as tolerated. Increased Metoprolol to 50 mg BID. Increase lisinopril to 10 mg PO Daily. Hydralazine 25 mg po tid , monitor BP. Continue amlodipine 10 mg PO daily. Hydralazine and labetalol as needed. Continue to monitor closely and adjust meds as indicated. History of hepatitis C. Chronic DVT prophylaxis: On Coumadin Discharge Planning Pending improvement. Discussed with the patient, nurse Prema Stover MD May 24, 2017 16:49
[2017-05-24] MEDS: LABETALOL HCL 100 MG/20 ML VIAL IV PUSH PRN (16:52)
[2017-05-24] MEDS ORDERED: LISINOPRIL 5 MG TAB PO ONE (17:00)
[2017-05-24] MEDS: traZODone HCL 50 MG TAB PO SCH (21:53)
[2017-05-25] VITALS (26 sets, daily range): BP systolic 135–177; BP diastolic 77–91; PULSE 78–106; RESP 16–20; TEMP 97.7–99.1; O2SAT 94–98
[2017-05-25] MEDS: ACETAMINOPHEN/HYDROcodone 325 MG/5 MG TAB PO PRN (01:05)
[2017-05-25] MEDS: LABETALOL HCL 100 MG/20 ML VIAL IV PUSH PRN ×2 (01:10→01:13)
[2017-05-25] MEDS: hydrALAZINE HCL 20 MG/ML VIAL IV PUSH PRN ×3 (01:29→10:27)
[2017-05-25] MEDS: SODIUM CHLORIDE 0.9% FLUSH 10 ML FLUSH IV FLUSH SCH ×3 (03:22→21:00)
[2017-05-25] MEDS: RESP: ALBUTEROL 2.5 MG/IPRATROPIUM 0.5 MG NEB (SCH) INH ×3 (03:38→15:25)
[2017-05-25 06:05] LABS: INTERNATIONAL NORMALIZED RATIO 1.4 RATIO; PROTHROMBIN TIME - PATIENT 15.7 SEC (9.8-11.6)
[2017-05-25] MEDS: hydrALAZINE HCL 25 MG TAB PO SCH (06:50)
[2017-05-25] MEDS: GABAPENTIN 300 MG CAP PO SCH ×3 (06:50→21:31)
[2017-05-25] MEDS: ALPRAZolam 1 MG TAB PO PRN ×3 (06:50→22:22)
[2017-05-25] MEDS: ACETAMINOPHEN/HYDROcodone 325 MG/7.5 MG TAB PO PRN ×3 (06:50→21:39)
[2017-05-25] MEDS: AMOXICILLIN/CLAVUL SUSP 250 MG/5 ML 100 ML BTL PO SCH ×3 (06:51→21:32)
--- NOTE | 2017-05-25 08:30 | HHI.PR ---
Subjective Remarks In bed. Says shortness of breath is at baseline. No fever or chills. Not much cough but still feels congested. She is using incentive spirometry and Acapella. Her blood pressure is looking to higher side, medications adjusted. Denies headaches, new motor deficit. Denies nausea, vomiting, diarrhea or constipation. Objective Vitals Vital Signs Date Time Temp Pulse Resp B/P Pulse Ox O2 Delivery O2 Flow Rate FiO2 05/25/17 08:00 Nasal Cannula 2.00 05/25/17 07:36 20 05/25/17 07:10 96 Nasal Cannula 2.00 05/25/17 03:27 98.5 96 16 177/85 94 05/25/17 03:12 97 Nasal Cannula 2.00 05/25/17 01:20 99.1 97 16 174/91 96 05/25/17 01:17 98 Nasal Cannula 2.00 05/24/17 21:11 96 Nasal Cannula 2.00 05/24/17 20:30 99.1 97 16 161/88 96 05/24/17 19:41 93 Nasal Cannula 2.00 05/24/17 18:00 92 05/24/17 17:00 90 05/24/17 16:45 160/81 05/24/17 16:00 87 05/24/17 15:30 96 Nasal Cannula 2.00 05/24/17 15:30 97.8 82 16 153/81 96 05/24/17 15:00 82 05/24/17 14:00 82 05/24/17 13:00 82 05/24/17 12:00 82 05/24/17 11:15 95 Nasal Cannula 2.00 05/24/17 11:15 98.8 82 16 148/67 95 05/24/17 11:00 80 05/24/17 10:00 82 05/24/17 09:31 94 Nasal Cannula 2.00 05/24/17 09:00 84 I/O 05/24/17 05/24/17 05/24/17 05/25/17 05/25/17 05/25/17 06:59 14:59 22:59 06:59 14:59 22:59 Intake Total 1440 ml 1136 ml 560 ml Output Total 1250 ml 1000 ml 1100 ml Balance 190 ml 136 ml -540 ml Intake Oral 240 ml 725 ml 560 ml IV Total 1200 ml 411 ml 0 ml Output Urine Total 1250 ml 1000 ml 1100 ml # Bowel Movements 3 1 Result Diagram: 05/21/1742505/21/17 042 Imaging Last Impressions Chest X-Ray 05/20/17 0600 Signed Impressions: Service Date/Time: Saturday, May 20, 2017 03:36 - CONCLUSION: Stable chest x-ray with small bilateral pleural effusions with airspace consolidation bilaterally. Padilla Peña MD Objective Remarks GENERAL: 52 yo F, appearing much older than stated age, in no acute distress. CARDIOVASCULAR: Normal rate and regular rhythm without murmurs, gallops, or rubs. RESPIRATORY: Better air movement. Faint rhonchi bilaterally. No wheezing. GASTROINTESTINAL: Abdomen soft, non-tender, non-distended. Normal active bowel sounds MUSCULOSKELETAL: Extremities without cyanosis, or edema. NEURO: Alert & Oriented x4 to person, place, time, situation. Right sided weakness, improving. Right side is no longer flaccid. RL 3/5. RUE 2/5. Facial droop, slow speech. PSYCH: Appropriate mood and affect. A/P Problem List: (1) Respiratory failure ICD Code: J96.90 Status: Acute (2) Sepsis due to pneumonia ICD Code: J18.9 Status: Acute (3) HTN (hypertension) ICD Code: I10 Status: Acute (4) E. coli UTI ICD Code: N39.0 Status: Acute Assessment and Plan 52-year-old female status post basal ganglia and left pontine CVA with worsening respiratory failure secondary to pneumonia and sepsis. Patient is being admitted from [facility] to ICU for treatment. Hypertension, uncontrolled. She is still requiring. wean as tolerated keep SBP < 140. Titrate down as tolerated. Increased Metoprolol to 50 mg TID. Increase lisinopril to 20 mg PO Daily. Increase hydralazine to 50 mg po tid , monitor BP. Continue amlodipine 10 mg PO daily. Hydralazine and labetalol IV as needed. Clonidibne PO as need. Continue to monitor closely and adjust meds as indicated. Sepsis due to pneumonia: HCAP Acute respiratory failure requiring high flow NC and BiPAP. Titrate down as tolerated. Currently on 2L by [place]. Repeat Chest x-ray reviewed, shows some improvement. Received Zosyn and vancomycin, appreciate infectious disease following. Change to Augmentin and give for 7 days of Abx per ID specialist po. Follow cultures. Sputum culture when the patient is able to expectorate. Appreciate Pulmonology recommendations. On high flow nasal canula. Probable underlying COPD. DW RN to titrate wean off high flow nasal cannula as tolerated. Scheduled DuoNeb treatments Solu-Medrol IV, taper as tolerated. BiPAP as needed. Right basal ganglia infarct and left pontine CVA Status post TPA and currently on Coumadin and Plavix. Monitor closely INR Pharmacy following. Continue Lipitor Microcytic Anemia, acute on chronic Hemoglobin 7.5 on admission s/p 1 unit of PRBC-->9.7>>7.8>>9.2: No active source of bleeding identified. Status post IV Venofer. Monitor H/H and transfuse if HGB< 7 or if patient symptomatic and HGB<9 Continue with by mouth Ferrous sulfate twice a day Follow CBC Hemoccult stool neg Urinary tract infection: E coli UTI. Abx as above. Anxiety/depression: Continue with Zoloft Hypokalemia: Replace and monitor. Hyperlipidemia. On Pravastatin History of hepatitis C. Chronic DVT prophylaxis: On Coumadin Discharge Planning Pending improvement. Plan to DC to inpatient [place] rehab if BP better controlled. Discussed with the patient, nurse, case management, nurse from [place] rehab. Prema Stover MD May 25, 2017 08:29
[2017-05-25] MEDS: PRAVASTATIN SOD 40 MG TAB PO SCH (08:55)
[2017-05-25] MEDS: predniSONE 10 MG TAB PO SCH (08:55)
[2017-05-25] MEDS: METOPROLOL TARTRATE 50 MG TAB PO SCH ×2 (08:55→15:17)
[2017-05-25] MEDS: buPROPion HCL 150 MG SUSTAINED RELEASE TAB PO SCH ×2 (08:55→21:31)
[2017-05-25] MEDS: PANTOPRAZOLE SOD 40 MG DELAYED RELEASE TAB PO SCH (08:55)
[2017-05-25] MEDS: SERTRALINE HCL 50 MG TAB PO SCH (08:56)
[2017-05-25] MEDS: CLOPIDOGREL 75 MG TAB PO SCH (08:56)
[2017-05-25] MEDS ORDERED: LISINOPRIL 10 MG TAB PO SCH (09:00)
[2017-05-25] MEDS: LISINOPRIL 20 MG TAB PO SCH (09:03)
[2017-05-25] MEDS ORDERED: METO-309 PO (10:09)
[2017-05-25] MEDS ORDERED: HYDR-3800 PO (10:09)
[2017-05-25] MEDS ORDERED: LISI-515 PO (10:09)
--- NOTE | 2017-05-25 10:10 | HHI.DS ---
Discharge Summary Admission Date May 17, 2017 at 11:00 Discharge Date: May 25, 2017 Admitting Diagnosis (1) Dysphagia as late effect of cerebrovascular accident (CVA) ICD Code: I69.391 Diagnosis: Principal (2) Dysarthria as late effect of cerebrovascular accident (CVA) ICD Code: I69.322 Diagnosis: Principal (3) Facial droop due to stroke ICD Code: I63.9 Diagnosis: Principal (4) Impaired mobility and activities of daily living ICD Code: Z74.09 Diagnosis: Principal (5) Respiratory failure ICD Code: J96.90 Diagnosis: Principal (6) Sepsis due to pneumonia ICD Code: J18.9 Diagnosis: Principal (7) HTN (hypertension) ICD Code: I10 Diagnosis: Secondary (8) E. coli UTI ICD Code: N39.0 Diagnosis: Secondary (9) Lupus (systemic lupus erythematosus) ICD Code: M32.9 Diagnosis: Secondary (10) Porphyria cutanea tarda ICD Code: E80.1 Diagnosis: Secondary Procedures none Brief History - From Admission 52-year-old female with a medical history significant for hypertension, hyperlipidemia, lupus, CVA who initially presented to the hospital on 05/08/17 with right sided weakness. The patient was found to have a right basal ganglia infarct and left pontine CVA. She is status post TPA. She was admitted to [place] for comprehensive rehabilitation. However for the past couple of days she has been having fevers and her imaging were consistent for pneumonia. The patient was started on cefepime. However today her symptoms worsen with recurrent fevers, tachypnea, requiring more oxygen. She also reports increasing sputum production but has not been able to give sample. The chart reviewed extensively. Discuss with rehabilitation physician, Dr. Espana. I recommended transfer to the [facility] for worsening respiratory status and sepsis. CBC/BMP: 05/21/17 0426 05/21/17 0426 Significant Findings Laboratory Tests Test 05/23/17 05/24/17 05/25/17 06:36 04:23 04:12 Prothrombin Time 25.8 SEC 17.1 SEC 15.7 SEC (9.8-11.6) (9.8-11.6) (9.8-11.6) PE at Discharge GENERAL: 52 yo F, appearing much older than stated age, in no acute distress. CARDIOVASCULAR: Normal rate and regular rhythm without murmurs, gallops, or rubs. RESPIRATORY: Better air movement. Faint rhonchi bilaterally. No wheezing. GASTROINTESTINAL: Abdomen soft, non-tender, non-distended. Normal active bowel sounds MUSCULOSKELETAL: Extremities without cyanosis, or edema. NEURO: Alert & Oriented x4 to person, place, time, situation. Right sided weakness, improving. Right side is no longer flaccid. RL 3/5. RUE 2/5. Facial droop, slow speech. PSYCH: Appropriate mood and affect. Hospital Course 52-year-old female status post basal ganglia and left pontine CVA with worsening respiratory failure secondary to pneumonia and sepsis. Patient is being admitted from [facility] to ICU for treatment. Hypertension, uncontrolled. She is still requiring. wean as tolerated keep SBP < 140. Titrate down as tolerated. Increased Metoprolol to 50 mg TID. Increase lisinopril to 20 mg PO Daily. Increase hydralazine to 50 mg po tid , monitor BP. Continue amlodipine 10 mg PO daily. Hydralazine and labetalol IV as needed. Clonidine PO as need. Continue to monitor closely and adjust meds as indicated. Sepsis due to pneumonia: HCAP Acute respiratory failure requiring high flow NC and BiPAP. Titrate down as tolerated. Currently on 2L by [place]. Bilateral pleural effusion. Start lasix. Monitor closely UOP. monitor closely kidney function. Repeat Chest x-ray reviewed, shows some improvement. Received Zosyn and vancomycin, appreciate infectious disease following. Change to Augmentin and give for 7 days of Abx per ID specialist po. Follow cultures. Sputum culture when the patient is able to expectorate. Appreciate Pulmonology recommendations. Required high flow by nasal canula. Probable underlying COPD. Currently on NC satting well Scheduled DuoNeb treatments Solu-Medrol IV, taper as tolerated. Switched to PO prednisone by pulm. BiPAP as needed. Right basal ganglia infarct and left pontine CVA Status post TPA. Patient with poss prot C deific DC Coumadin, start eliquis 2.5 mg bid per hem/onc recommendations and also Dr Culver neurology. Start Eliquis when INR is < [address] Culver patient can be discharged to [place] [facility] and to have call his cell number at [phone] with INR reading the next day and he will decide based on INR level when to start Eliquis. Monitor closely INR Pharmacy following. Continue Lipitor Microcytic Anemia, acute on chronic Hemoglobin 7.5 on admission s/p 1 unit of PRBC-->9.7>>7.8>>9.2: No active source of bleeding identified. Status post IV Venofer. Monitor H/H and transfuse if HGB< 7 or if patient symptomatic and HGB<9 Continue with by mouth Ferrous sulfate twice a day Follow CBC. H/H stable Hemoccult stool neg Urinary tract infection: E coli UTI. Abx as above. Anxiety/depression: Continue with Zoloft Hypokalemia: Replace and monitor. Hyperlipidemia. On Pravastatin History of hepatitis C. Chronic DVT prophylaxis: On Coumadin Discharge Planning Patient is improving. DC to inpatient [place] [facility] in stable condition. Patient with poss prot C deific DC Coumadin, start eliquis 2.5 mg bid per hem/onc recommendations and also Dr Culver neurology. Discussed with Dr Culver. Start Eliquis when INR is < [address] Culver patient can be discharged to [place] [facility] and to have call his cell number at [phone] with INR reading the next day and he will decide based on INR level when to start Eliquis. Pt Condition on Discharge: Stable Discharge Disposition: Rehab Inpatient Discharge Time: > 30 minutes Discharge Instructions DIET: Follow Instructions for: Heart Healthy Diet Speech Therapy-Diet Recommends: Mechanical Soft, Chopped Meat w/Gravy Activities you can perform: Regular-No Restrictions Follow up Referrals: Neurology - 3-5 Days PCP Follow-up - 2-3 Days Pulmonology - 3-5 Days New Medications: Amoxicillin-Clavulanate (Amoxicillin-Clavulanate) 500-125 mg Tab 500 MG PO TID Infection #9 Ref 0 TAB Apixaban (Eliquis) 2.5 Mg Tab 2.5 MG PO BID START eliquis when INR is less than 2. Call Dr Culver regarding INR Blood Clot Prevention #90 Ref 0 TAB Amlodipine (Norvasc) 10 Mg Tab 10 MG PO DAILY Blood Pressure Management #30 TAB Furosemide (Furosemide) 20 Mg Tab 20 MG PO DAILY pleural effusions #30 TAB Hydralazine HCl (Hydralazine HCl) 50 Mg Tablet 50 MG PO Q8HR Blood Pressure Management #90 MG Lisinopril (Lisinopril) 20 Mg Tab 20 MG PO DAILY Blood Pressure Management #30 TAB Metoprolol Tartrate (Lopressor) 50 Mg Tab 50 MG PO Q8H Blood Pressure Management #90 TAB Prednisone (Prednisone) 10 Mg Tab 10 MG PO DAILY copd #10 TAB Continued Medications: Acetaminophen (Eq Acetaminophen) 325 Mg Tab 650 MG PO Q4H PRN Fever Days 1 TAB Alprazolam (Xanax) 1 Mg Tab 1 MG PO Q8H PRN ANXIETY Days 1 TAB Bupropion HCl ER 12 HR (Wellbutrin SR 12 HR) 150 Mg Tab 150 MG PO BID Days 1 TAB Clonidine (Catapres) 0.1 Mg Tab 0.1 MG PO Q6H PRN SYS BP GREATER THAN 170 MMHG Days 1 TAB Clopidogrel (Plavix) 75 Mg Tab 75 MG PO DAILY Days 1 TAB Ferrous Sulfate (Ferosul) 325 Mg Tablet 325 MG PO BID@12,17 Days 1 Gabapentin (Neurontin) 300 Mg Cap 600 MG PO Q8H Days 1 CAP Ipratropium-Albuterol Neb (Duoneb) 0.5-2.5 Mg/3 Ml Neb 1 AMPULE NEB Q4HR NEB PRN SHORTNESS OF BREATH Days 1 ML Methocarbamol (Robaxin) 500 Mg Tab 500 MG PO TID Muscle Spasm Ref 0 TAB Morphine ER (Morphine ER) 30 Mg Tab 30 MG PO Q8H Pain Management Ref 0 TAB Morphine IR (Morphine IR) 15 Mg Tab 15 MG PO Q6HR PRN PAIN 1-10 Days 1 TAB Ondansetron (Zofran) 8 Mg Tab 8 MG PO TID Nausea/Vomiting Ref 0 TAB Pantoprazole (Pantoprazole) 40 Mg Tab 40 MG PO DAILY Days 1 TAB Pravastatin (Pravachol) 40 Mg Tab 40 MG PO DAILY Days 1 TAB Sertraline (Zoloft) 50 Mg Tab 50 MG PO DAILY Days 1 TAB Trazodone (Trazodone) 50 Mg Tab 150 MG PO HS Days 1 TAB ([Furosemide]) 40 MG/4 ML INJ 40 MG IV PUSH DAILY Days 1 INJECTION Discontinued Medications: Ciprofloxacin (Ciprofloxacin) 250 Mg Tab 250 MG PO BID Infection #6 Ref 0 TAB Metoprolol Tartrate (Metoprolol Tartrate) 25 Mg Tab 25 MG PO Q12HR Days 1 TAB Warfarin (Coumadin) 3 Mg Tab 3 MG PO DAILY@16 Blood Clot Prevention #30 TAB Prema Stover MD May 25, 2017 10:10
[2017-05-25] MEDS: FERROUS SULFATE 325 MG (65 MG ELEMENTAL IRON) TAB PO SCH ×2 (10:27→15:16)
[2017-05-25] MEDS: cloNIDine HCL 0.1 MG TAB PO PRN (10:28)
[2017-05-25] MEDS ORDERED: AMOX500T2 PO (11:01)
[2017-05-25] MEDS ORDERED: PRED10 PO (11:07)
[2017-05-25] MEDS ORDERED: AMLO10 PO (11:07)
--- NOTE | 2017-05-25 13:00 | HHI.PR ---
Subjective Remarks Doing better. On O2 at 2L and sats 97. Right side weakness improved. Taking her diet.Was up today. Objective Vital Signs Date Time Temp Pulse Resp B/P Pulse Ox O2 Delivery O2 Flow Rate FiO2 05/25/17 12:04 148/80 05/25/17 12:00 Nasal Cannula 2.00 05/25/17 12:00 85 05/25/17 12:00 99.1 90 20 157/84 98 05/25/17 11:00 88 05/25/17 10:00 94 05/25/17 09:00 92 05/25/17 08:00 98.7 106 20 168/85 95 05/25/17 08:00 Nasal Cannula 2.00 05/25/17 08:00 91 05/25/17 07:36 20 05/25/17 07:10 96 Nasal Cannula 2.00 05/25/17 07:00 92 05/25/17 06:00 92 05/25/17 05:00 92 05/25/17 04:00 96 05/25/17 03:27 98.5 96 16 177/85 94 05/25/17 03:12 97 Nasal Cannula 2.00 05/25/17 03:00 98 05/25/17 02:00 98 05/25/17 01:20 99.1 97 16 174/91 96 05/25/17 01:17 98 Nasal Cannula 2.00 05/25/17 01:00 96 05/25/17 00:00 96 05/24/17 23:00 97 05/24/17 22:00 98 05/24/17 21:11 96 Nasal Cannula 2.00 05/24/17 21:00 94 05/24/17 20:30 99.1 97 16 161/88 96 05/24/17 20:00 94 05/24/17 19:41 93 Nasal Cannula 2.00 05/24/17 19:00 92 05/24/17 18:00 92 05/24/17 17:00 90 05/24/17 16:45 160/81 05/24/17 16:00 87 05/24/17 15:30 96 Nasal Cannula 2.00 05/24/17 15:30 97.8 82 16 153/81 96 05/24/17 15:00 82 05/24/17 14:00 82 05/24/17 13:00 82 I/O 05/24/17 05/24/17 05/24/17 05/25/17 05/25/17 05/25/17 06:59 14:59 22:59 06:59 14:59 22:59 Intake Total 1440 ml 1136 ml 560 ml Output Total 1250 ml 1000 ml 1100 ml Balance 190 ml 136 ml -540 ml Intake Oral 240 ml 725 ml 560 ml IV Total 1200 ml 411 ml 0 ml Output Urine Total 1250 ml 1000 ml 1100 ml # Bowel Movements 3 1 Result Diagram: 05/21/1742505/21/17425 Objective Remarks GENERAL: 52 yo F,average built , in no acute distress. CARDIOVASCULAR: Normal rate and regular rhythm without murmurs, gallops, or rubs. RESPIRATORY: Occ Wheeze. No Crackles GASTROINTESTINAL: Abdomen soft, non-tender, non-distended. Normal active bowel sounds. NO mass. MUSCULOSKELETAL: Extremities without cyanosis, or edema. NEURO: Alert & Oriented x4 to person, place, time, situation. Right sided weakness, improving. PSYCH: Appropriate mood and affect. Assessment and Plan Assessment and Plan A/P Problem List: (1) Respiratory failure ICD Code: J96.90 Status: Acute (2) Sepsis due to pneumonia ICD Code: J18.9 Status: Acute Plan : 1. Wean O2 to 2 L. and to RA 2. Continue Nebs q6h.Duoneb.PRN 3. Soft diet. 4. PT and OT Evaluation. 5. IS at bedside qid. 6. Continue antibiotics. for 5 days 7. [place] 7.5 mg q6h prn. Ileana Branch MD May 25, 2017 12:59
[2017-05-25 13:09] LABS: BICARBONATE 27.4 MEQ/L (21.0-32.0)
[2017-05-25] MEDS: hydrALAZINE HCL 50 MG TAB PO SCH ×2 (14:08→21:31)
[2017-05-25] MEDS: WARFARIN SOD 3 MG TAB PO SCH (15:16)
[2017-05-25] MEDS ORDERED: WARFARIN SOD 2 MG TAB PO ONE (16:00)
[2017-05-25] MEDS: traZODone HCL 50 MG TAB PO SCH (21:31)
[2017-05-26] VITALS (25 sets, daily range): BP systolic 116–158; BP diastolic 79–88; PULSE 74–98; RESP 18–22; TEMP 98.2–99.1; O2SAT 96–98
[2017-05-26] MEDS: METOPROLOL TARTRATE 50 MG TAB PO SCH ×3 (01:08→16:15)
--- NOTE | 2017-05-26 05:42 | RADRPT ---
EXAM DATE/TIME: 05/26/2017 04:20 [place] COMPARISON: CHEST SINGLE AP, May 20, 2017, 3:36. INDICATIONS : Short of breath. MEDICAL HISTORY : Hypertension. Hypercholesterolemia. SURGICAL HISTORY : Hysterectomy. ENCOUNTER: Subsequent ACUITY: 1 week PAIN SCORE: 0/10 LOCATION: Bilateral chest FINDINGS: A single AP portable semierect view of the chest was obtained again demonstrates mild cardiomegaly an d hazy opacity in both lungs. This is not significantly changed. Both costophrenic angles remain blun jimenez consistent with small effusions. The bony thorax is intact. There are multiple overlying electroc ardiogram leads. CONCLUSION: 1. No significant change in the bilateral alveolar infiltrates most characteristic of pulmonary edema . 2. Cardiomegaly and small effusions are present and the findings are most consistent with congestive heart failure. Jeyson Asher MD on May 26, 2017 at 5:39 Board Certified Radiologist. This report was verified electronically.
[2017-05-26] MEDS: AMOXICILLIN/CLAVUL SUSP 250 MG/5 ML 100 ML BTL PO SCH ×3 (06:00→21:25)
[2017-05-26] MEDS: hydrALAZINE HCL 50 MG TAB PO SCH ×3 (06:15→21:22)
[2017-05-26] MEDS: GABAPENTIN 300 MG CAP PO SCH ×3 (06:15→21:23)
[2017-05-26 08:28] LABS: AUTOMATED NEUTROPHIL # 5.9 TH/MM3 (1.8-7.7); BASOPHIL % 0.3 % (0.0-2.0); EOSINOPHIL # 0.1 TH/MM3 (0-0.4); EOSINOPHIL % 0.8 % (0.0-4.0); HEMATOCRIT 24.4 % (35.0-46.0); HEMO FLAGS DIFF FINAL; LYMPH % 22.4 % (9.0-44.0); LYMPHOCYTE # 1.9 TH/MM3 (1.0-4.8); MEAN CELL VOLUME 75.2 FL (80.0-100.0); MEAN CORPUSCULAR HEMOGLOBIN 25.4 PG (27.0-34.0); MEAN CORPUSCULAR HGB CONC 33.8 % (32.0-36.0); MONO % 5.1 % (0.0-8.0); NEUT % 71.4 % (16.0-70.0); PLATELET COUNT 277 TH/MM3 (150-450); RED BLOOD COUNT 3.24 MIL/MM3 (4.00-5.30); RED CELL DISTRIBUTION WIDTH 21.4 % (11.6-17.2); WHITE BLOOD COUNT 8.3 TH/MM3 (4.0-11.0)
[2017-05-26 08:34] LABS: INTERNATIONAL NORMALIZED RATIO 1.7 RATIO; PROTHROMBIN TIME - PATIENT 19.7 SEC (9.8-11.6)
[2017-05-26 08:48] LABS: BICARBONATE 28.8 MEQ/L (21.0-32.0); MAGNESIUM 2.2 MG/DL (1.5-2.5); POTASSIUM 3.8 MEQ/L (3.5-5.1)
--- NOTE | 2017-05-26 09:04 | HHI.PR ---
Subjective Remarks In bed, says she was at the margin of the bed. SOB at baseline. No new motor deficit. No fever or chills. No n/v/d/c. Objective Vitals Vital Signs Date Time Temp Pulse Resp B/P Pulse Ox O2 Delivery O2 Flow Rate FiO2 05/26/17 08:00 98.5 77 20 116/79 97 05/26/17 08:00 76 05/26/17 07:00 75 05/26/17 05:00 76 05/26/17 04:00 76 05/26/17 04:00 98 Nasal Cannula 2.00 05/26/17 04:00 98.4 76 20 148/85 97 05/26/17 03:00 76 05/26/17 02:00 79 05/26/17 01:00 82 05/26/17 00:30 98.7 79 20 147/81 97 05/26/17 00:00 98 Nasal Cannula 2.00 05/26/17 00:00 79 05/25/17 23:00 79 05/25/17 22:00 78 05/25/17 21:00 83 05/25/17 20:00 99.0 86 20 156/80 97 05/25/17 20:00 80 05/25/17 20:00 97 Nasal Cannula 2.00 05/25/17 19:00 86 05/25/17 16:00 97.7 88 20 147/79 98 05/25/17 16:00 Nasal Cannula 2.00 05/25/17 16:00 92 05/25/17 15:47 20 05/25/17 15:00 84 05/25/17 14:00 135/77 05/25/17 14:00 82 05/25/17 13:00 86 05/25/17 12:04 148/80 05/25/17 12:00 Nasal Cannula 2.00 05/25/17 12:00 85 05/25/17 12:00 99.1 90 20 157/84 98 05/25/17 11:00 88 05/25/17 10:00 94 I/O 05/25/17 05/25/17 05/25/17 05/26/17 05/26/17 05/26/17 07:00 15:00 23:00 07:00 15:00 23:00 Intake Total 560 ml 600 ml 240 ml Output Total 1100 ml 1950 ml Balance -540 ml 600 ml -1710 ml Intake Oral 560 ml 600 ml 240 ml IV Total 0 ml Output Urine Total 1100 ml 1950 ml # Voids 4 # Bowel Movements 1 3 Result Diagram: 05/26/17 0807 05/26/17 0807 Imaging Last Impressions Chest X-Ray 05/26/17 0600 Signed Impressions: Service Date/Time: Friday, May 26, 2017 04:20 - CONCLUSION: 1. No significant change in the bilateral alveolar infiltrates most characteristic of pulmonary edema. 2. Cardiomegaly and small effusions are present and the findings are most consistent with congestive heart failure. Jeyson Asher MD Objective Remarks GENERAL: 52 yo F, appearing much older than stated age, in no acute distress. CARDIOVASCULAR: Normal rate and regular rhythm without murmurs, gallops, or rubs. RESPIRATORY: Better air movement. Faint rhonchi bilaterally. No wheezing. GASTROINTESTINAL: Abdomen soft, non-tender, non-distended. Normal active bowel sounds MUSCULOSKELETAL: Extremities without cyanosis, or edema. NEURO: Alert & Oriented x4 to person, place, time, situation. Right sided weakness, improving. Right side is no longer flaccid. RL 3/5. RUE 2/5. Facial droop, slow speech. PSYCH: Appropriate mood and affect. Procedures none A/P Problem List: (1) Respiratory failure ICD Code: J96.90 Status: Acute (2) Sepsis due to pneumonia ICD Code: J18.9 Status: Acute (3) HTN (hypertension) ICD Code: I10 Status: Acute (4) E. coli UTI ICD Code: N39.0 Status: Acute Assessment and Plan 52-year-old female status post basal ganglia and left pontine CVA with worsening respiratory failure secondary to pneumonia and sepsis. Patient is being admitted from [facility] to ICU for treatment. Hypertension, uncontrolled. She is still requiring. wean as tolerated keep SBP < 140. Titrate down as tolerated. Increased Metoprolol to 50 mg TID. Increase lisinopril to 20 mg PO Daily. Increase hydralazine to 50 mg po tid , monitor BP. Continue amlodipine 10 mg PO daily. Hydralazine and labetalol IV as needed. Clonidibne PO as need. Continue to monitor closely and adjust meds as indicated. Sepsis due to pneumonia: HCAP Acute respiratory failure requiring high flow NC and BiPAP. Titrate down as tolerated. Currently on 2L by NC. Bilateral pleural effusions Chest x-ray reviewed, BL pleural effusions. Give lasix, monitor UOP Received Zosyn and vancomycin, appreciate infectious disease following. Change to Augmentin and give for total of 7 days of Abx per ID specialist. Follow cultures. Sputum culture when the patient is able to expectorate. Appreciate Pulmonology recommendations. Was on high flow nasal canula. Probable underlying COPD. Scheduled DuoNeb treatments and as need, Taper as tolerated. Solu-Medrol IV, taper as tolerated. Switched to PO BiPAP as needed. Right basal ganglia infarct and left pontine CVA Status post TPA and currently on Coumadin. Discussed with Dr Culver neurology continue coumadin only , DC plavix. Monitor closely INR, do not bridge with Lovenox or heparin per neuro. Pharmacy following. Continue Lipitor Microcytic Anemia, acute on chronic Hemoglobin 7.5 on admission s/p 1 unit of PRBC-->9.7>>7.8>>9.2: No active source of bleeding identified. Status post IV Venofer. Monitor H/H and transfuse if HGB< 7 or if patient symptomatic and HGB<9 Continue with by mouth Ferrous sulfate twice a day Follow CBC Hemoccult stool neg Subtherapeutic INR 1.4--> 1.7 trending up , monitor INR Also concern for protein C deficiency. Consult hem/onc. Work up in progress. Urinary tract infection: E coli UTI. Abx as above. Anxiety/depression: Continue with Zoloft Hypokalemia: Replace and monitor. Hyperlipidemia. On Pravastatin History of hepatitis C. Chronic DVT prophylaxis: On Coumadin Discharge Planning Pending improvement. Plan to DC to inpatient [place] once cleared by consultants. concern of Prot C deficiency, work up in progress. Hem/onc consulted. Discussed with the patient, nurse, case management. Prema Stover MD May 26, 2017 09:04
[2017-05-26] MEDS: LISINOPRIL 20 MG TAB PO SCH (09:07)
[2017-05-26] MEDS: PRAVASTATIN SOD 40 MG TAB PO SCH (09:08)
[2017-05-26] MEDS: predniSONE 10 MG TAB PO SCH (09:09)
[2017-05-26] MEDS: buPROPion HCL 150 MG SUSTAINED RELEASE TAB PO SCH ×2 (09:09→21:22)
[2017-05-26] MEDS: SERTRALINE HCL 50 MG TAB PO SCH (09:09)
[2017-05-26] MEDS: PANTOPRAZOLE SOD 40 MG DELAYED RELEASE TAB PO SCH (09:09)
[2017-05-26] MEDS: SODIUM CHLORIDE 0.9% FLUSH 10 ML FLUSH IV FLUSH SCH ×2 (09:10→21:26)
[2017-05-26] MEDS: ALPRAZolam 1 MG TAB PO PRN ×2 (09:12→17:12)
[2017-05-26] MEDS: ACETAMINOPHEN/HYDROcodone 325 MG/5 MG TAB PO PRN (09:12)
[2017-05-26] MEDS: FERROUS SULFATE 325 MG (65 MG ELEMENTAL IRON) TAB PO SCH ×2 (11:20→16:15)
--- NOTE | 2017-05-26 12:11 | HHI.PR ---
Subjective Remarks Stable , On O2 at 2L and sats 97. CXR still shows bilateral Infiltrates. Right side weakness improved. Taking her diet. Objective Vital Signs Date Time Temp Pulse Resp B/P Pulse Ox O2 Delivery O2 Flow Rate FiO2 05/26/17 11:29 97 Nasal Cannula 2.00 05/26/17 11:28 98.4 76 20 124/86 97 05/26/17 11:00 83 05/26/17 10:13 20 05/26/17 10:00 80 05/26/17 09:00 82 05/26/17 08:00 98.5 77 20 116/79 97 05/26/17 08:00 76 05/26/17 07:00 75 05/26/17 05:00 76 05/26/17 04:00 76 05/26/17 04:00 98 Nasal Cannula 2.00 05/26/17 04:00 98.4 76 20 148/85 97 05/26/17 03:00 76 05/26/17 02:00 79 05/26/17 01:00 82 05/26/17 00:30 98.7 79 20 147/81 97 05/26/17 00:00 98 Nasal Cannula 2.00 05/26/17 00:00 79 05/25/17 23:00 79 05/25/17 22:00 78 05/25/17 21:00 83 05/25/17 20:00 99.0 86 20 156/80 97 05/25/17 20:00 80 05/25/17 20:00 97 Nasal Cannula 2.00 05/25/17 19:00 86 05/25/17 16:00 97.7 88 20 147/79 98 05/25/17 16:00 Nasal Cannula 2.00 05/25/17 16:00 92 05/25/17 15:47 20 05/25/17 15:00 84 05/25/17 14:00 135/77 05/25/17 14:00 82 05/25/17 13:00 86 I/O 05/25/17 05/25/17 05/25/17 05/26/17 05/26/17 05/26/17 06:59 14:59 22:59 06:59 14:59 22:59 Intake Total 560 ml 600 ml 240 ml Output Total 1100 ml 1950 ml Balance -540 ml 600 ml -1710 ml Intake Oral 560 ml 600 ml 240 ml IV Total 0 ml Output Urine Total 1100 ml 1950 ml # Voids 4 # Bowel Movements 1 3 Result Diagram: 05/26/1780605/26/17806 Objective Remarks GENERAL: 52 yo F,average built , in no acute distress. CARDIOVASCULAR: Normal rate and regular rhythm without murmurs, gallops, or rubs. RESPIRATORY: Occ Wheeze. Occ basal Crackles GASTROINTESTINAL: Abdomen soft, non-tender, non-distended. Normal active bowel sounds. NO mass. MUSCULOSKELETAL: Extremities without cyanosis, or edema. NEURO: Alert & Oriented x4 to person, place, time, situation. Right sided weakness, improving. PSYCH: Appropriate mood and affect. Assessment and Plan Assessment and Plan A/P Problem List: (1) Respiratory failure ICD Code: J96.90 Status: Acute (2) Sepsis due to pneumonia ICD Code: J18.9 Status: Acute Pulmonary Edema/Effusions Plan : 1. Wean O2 to 2 L. and to RA 2. Continue Nebs q6h.Duoneb.PRN 3. Soft diet. 4. PT and OT Evaluation. 5. IS at bedside qid. 6. Add Lasix 20 mg daily 7. [place] 7.5 mg q6h prn. 8. K Tab 10 Meq daily. Ileana Branch MD May 26, 2017 12:11
--- NOTE | 2017-05-26 13:58 | PD.ONC.PN ---
Subjective Subjective Remarks Afebrile overnight. Patient working with PT in room. Woke up coughing this morning. Objective Data Date Time Temp Pulse Resp B/P Pulse Ox O2 Delivery O2 Flow Rate FiO2 05/26/17 12:00 80 05/26/17 11:29 97 Nasal Cannula 2.00 05/26/17 11:28 98.4 76 20 124/86 97 05/26/17 11:00 83 05/26/17 10:13 20 05/26/17 10:00 80 05/26/17 09:00 82 05/26/17 08:00 98.5 77 20 116/79 97 05/26/17 08:00 76 05/26/17 07:00 75 05/26/17 05:00 76 05/26/17 04:00 76 05/26/17 04:00 98 Nasal Cannula 2.00 05/26/17 04:00 98.4 76 20 148/85 97 05/26/17 03:00 76 05/26/17 02:00 79 05/26/17 01:00 82 05/26/17 00:30 98.7 79 20 147/81 97 05/26/17 00:00 98 Nasal Cannula 2.00 05/26/17 00:00 79 05/25/17 23:00 79 05/25/17 22:00 78 05/25/17 21:00 83 05/25/17 20:00 99.0 86 20 156/80 97 05/25/17 20:00 80 05/25/17 20:00 97 Nasal Cannula 2.00 05/25/17 19:00 86 05/25/17 16:00 97.7 88 20 147/79 98 05/25/17 16:00 Nasal Cannula 2.00 05/25/17 16:00 92 05/25/17 15:47 20 05/25/17 15:00 84 05/25/17 14:00 135/77 05/25/17 14:00 82 05/26/17 05/26/17 05/26/17 07:00 15:00 23:00 Intake Total 240 ml Output Total 1950 ml Balance -1710 ml Result Diagram: 05/26/17 0807 05/26/17 0807 Laboratory Results Laboratory Tests Test 05/26/17 08:07 White Blood Count 8.3 TH/MM3 Red Blood Count 3.24 MIL/MM3 Hemoglobin 8.2 GM/DL Hematocrit 24.4 % Mean Corpuscular Volume 75.2 FL Mean Corpuscular Hemoglobin 25.4 PG Mean Corpuscular Hemoglobin 33.8 % Concent Red Cell Distribution Width 21.4 % Platelet Count 277 TH/MM3 Mean Platelet Volume 7.6 FL Neutrophils (%) (Auto) 71.4 % Lymphocytes (%) (Auto) 22.4 % Monocytes (%) (Auto) 5.1 % Eosinophils (%) (Auto) 0.8 % Basophils (%) (Auto) 0.3 % Neutrophils # (Auto) 5.9 TH/MM3 Lymphocytes # (Auto) 1.9 TH/MM3 Monocytes # (Auto) 0.4 TH/MM3 Eosinophils # (Auto) 0.1 TH/MM3 Basophils # (Auto) 0.0 TH/MM3 CBC Comment DIFF FINAL Differential Comment Prothrombin Time 19.7 SEC Prothromb Time International 1.7 RATIO Ratio Sodium Level 143 MEQ/L Potassium Level 3.8 MEQ/L Chloride Level 109 MEQ/L Carbon Dioxide Level 28.8 MEQ/L Anion Gap 5 MEQ/L Blood Urea Nitrogen 15 MG/DL Creatinine 0.33 MG/DL Estimat Glomerular Filtration 208 ML/MIN Rate Random Glucose 74 MG/DL Calcium Level 8.0 MG/DL Magnesium Level 2.2 MG/DL Imaging Studies Last 24 hours Impressions Chest X-Ray 05/26/17 0600 Signed Impressions: Service Date/Time: Friday, May 26, 2017 04:20 - CONCLUSION: 1. No significant change in the bilateral alveolar infiltrates most characteristic of pulmonary edema. 2. Cardiomegaly and small effusions are present and the findings are most consistent with congestive heart failure. Jeyson Asher MD Administered Medications Medications (Trade) Dose Ordered Sig/[place] Route PRN Reason Start Time Stop Time Status Last Admin Dose Admin Sodium Chloride (NS Flush) 2 ml UNSCH PRN IV FLUSH FLUSH AFTER USING IV ACCESS 05/17/17 11:15 05/21/17 04:18 Sodium Chloride (NS Flush) 2 ml BID IV FLUSH 05/17/17 21:00 05/26/17 09:10 Ondansetron HCl (Zofran Inj) 4 mg Q6H PRN IV NAUSEA 05/17/17 11:15 05/18/17 03:16 Guaifenesin/ Dextromethorphan (Robitussin Dm 200-20 Mg/10 ml Liq) 10 ml Q4H PRN PO COUGH 05/17/17 11:15 05/26/17 11:20 Alprazolam (Xanax) 1 mg Q8H PRN PO ANXIETY 05/17/17 11:15 05/26/17 09:12 Bupropion HCl (Wellbutrin Sr) 150 mg BID PO 05/17/17 21:00 05/26/17 09:09 Ferrous Sulfate (Ferrous Sulfate) 325 mg BID@,17 PO 05/17/17 12:00 05/26/17 11:20 Pantoprazole Sodium (Protonix) 40 mg DAILY PO 05/18/17 09:00 05/26/17 09:09 Pravastatin Sodium (Pravachol) 40 mg DAILY PO 05/18/17 09:00 05/26/17 09:08 Sertraline HCl (Zoloft) 50 mg DAILY PO 05/18/17 09:00 05/26/17 09:09 Gabapentin (Neurontin) 600 mg Q8HR PO 05/17/17 22:30 05/26/17 13:14 Trazodone HCl (Desyrel) 150 mg HS PO 05/17/17 22:30 05/25/17 21:31 Miscellaneous Information Patient in critical care unit? Ass... Q361D .XX 05/17/17 23:00 05/17/17 23:00 Warfarin Sodium (Coumadin) 3 mg DAILY@16 PO 05/20/17 16:00 05/25/17 15:16 Hydralazine HCl (Apresoline Inj) 10 mg Q30M PRN IV PUSH bp>140/80 05/19/17 00:30 05/25/17 10:27 Labetalol HCl (Trandate Inj) 10 mg Q20M PRN IV PUSH bp>140/80 05/19/17 00:30 05/25/17 01:13 Clonidine (Catapres) 0.1 mg Q6H PRN PO SEE LABEL COMMENTS 05/19/17 19:15 05/25/17 10:28 Amlodipine Besylate 10 mg 10 mg DAILY PO 05/20/17 02:07 05/26/17 09:08 Nitroglycerin/ Dextrose (Nitroglycerin-Dextrose Inj) 250 ml @ 0 mls/hr TITRATE IV 05/20/17 05:00 05/24/17 07:17 Amoxicillin/ Clavulanate Potassium (Augmentin 250 Mg/5 ml Liq) 500 mg Q8HR PO 05/22/17 17:00 05/29/17 16:59 05/26/17 13:14 Prednisone (Deltasone) 10 mg DAILY PO 05/24/17 09:00 05/26/17 09:09 Acetaminophen/ Hydrocodone Bitart ([place] 5-325 Mg) 1 tab Q6H PRN PO PAIN SCALE 1 TO 5 05/23/17 16:00 05/26/17 09:12 Acetaminophen/ Hydrocodone Bitart ([place] 7.5-325 Mg) 1 tab Q6H PRN PO PAIN SCALE 6 TO 10 05/23/17 16:00 05/25/17 21:39 Hydralazine HCl (Apresoline) 50 mg Q8HR PO 05/25/17 14:00 05/26/17 13:15 Lisinopril (Prinivil) 20 mg DAILY PO 05/25/17 09:00 05/26/17 09:07 Metoprolol Tartrate (Lopressor) 50 mg Q8H PO 05/25/17 09:00 05/26/17 09:08 Objective Remarks GENERAL: chronically ill appearing middle aged female upright in bed in [facility]. SKIN: Warm and dry. HEAD: Normocephalic. EYES: No injection or drainage. NECK: Supple, trachea midline. CARDIOVASCULAR: Regular rate and rhythm RESPIRATORY: diminished at bases, anterior story clear. on 2L O2 via NC GASTROINTESTINAL: Abdomen soft, non-tender, nondistended. EXTREMITIES: No cyanosis, or edema. MUSCULOSKELETAL: Adequate muscle tone. NEUROLOGICAL: right sided paresis. awake and alert. Assessment/Plan Problem List: (1) Stroke Status: Acute Plan: 05/26: await protein C and anti-thrombin III activity --s/p tpa --on coumadin --during last hospitalization, in mid April, protein C activity found to be low, anti-thrombin III was low as well. --hematology consulted to assess for hypercoagulable state. Assessment 52y/o female with h/o right basal ganglia and left pontine CVA, [facility] [place] and sepsis. Attending Statement no new c/o await repeat PC and AT III results. The exam, history, and the medical decision-making described in the above note were completed with the assistance of the mid-level provider. I reviewed and agree with the findings presented. I attest that I had a [id number] encounter with the patient on the same day, and personally performed and documented my assessment and findings in the medical record. Problem Qualifiers (1) Stroke: Aziza Espinoza May 26, 2017 13:58 Genet Judd MD May 26, 2017 21:33
[2017-05-26] MEDS: ACETAMINOPHEN/HYDROcodone 325 MG/7.5 MG TAB PO PRN ×2 (15:04→21:23)
[2017-05-26] MEDS: hydrALAZINE HCL 20 MG/ML VIAL IV PUSH PRN (16:11)
[2017-05-26] MEDS: WARFARIN SOD 3 MG TAB PO SCH (16:15)
--- NOTE | 2017-05-26 16:44 | MB ---
cc: DESIREE CULVER MD, ABDUL J. M.D. DATE OF CONSULTATION: 05/25/2017 REASON FOR CONSULTATION: Consult requested by Dr. Culver for evaluation of hypercoagulable state. HISTORY OF PRESENT ILLNESS Ms. Fam is a 52-year-old female. She has a history of CVA in 2013. She had residual weakness on the right side and she was walking with a cane. She came into the emergency room on May 08, for another stroke with right-sided weakness, dysarthria and right facial droop. Dr. Culver, neurologist, was consulted. MRI of the brain showed infarct and the patient had received TPA. On the same day hypercoagulable panel was ordered by Dr. Culver. The patient was on Plavix prior to coming to the hospital. After the TPA and heparin, the patient was transitioned to Coumadin. She was subsequently discharged to [facility]. The patient developed pneumonia and she is now back to the regular floor and getting antibiotics. The patient has been on Plavix and Coumadin. Her INR today was subtherapeutic. Yesterday it was subtherapeutic as well. When the [facility] hospitalist contacted Dr. Culver, neurologist, he indicated that he does not want her to have Coumadin or Lovenox due to protein C deficiency. He is requesting a hematology consult. The patient states that she still has weakness of the right side. She can barely move the right hand and the right leg. She has been unable to walk. Her dysarthria has almost resolved. The rest of the review of systems is negative. PAST MEDICAL HISTORY 1. Hypertension. 2. Hyperlipidemia. 3. Stroke with residual right-sided weakness in 2013. 4. Anxiety disorder. 5. Depression. PAST SURGICAL HISTORY: 1. Hernia repair. 2. . 3. Hysterectomy. 4. Right shoulder surgery. ALLERGIES Bactrim. MEDICATIONS Please see EMR. FAMILY HISTORY: Family history is noncontributory. SOCIAL HISTORY The patient used to smoke cigarettes half-pack a day for many years and does not drink alcohol. PHYSICAL EXAMINATION: The physical examination reveals a well-developed, chronically ill-appearing white female in no apparent distress. Vital signs: Temperature 97.7, heart rate is 88, blood pressure 147/79. HEENT: PERRLA, EOMI, anicteric. No oral lesions noted. Neck: No lymphadenopathy noted. Lungs: Clear. No wheezing, rhonchi or rales. Heart: Regular rate and rhythm. Abdomen: Soft, nontender. Extremities: No pedal edema. Neurology: Awake, alert. The patient has severe right hemiplegia. Skin: No significant lesions noted. ASSESSMENT 1. History of CVA in 2013. She was on Plavix and recently had another massive stroke. Status post TPA, heparin and on Coumadin . INR was subtherapeutic on admission. 2. Hypercoagulable panel shows the antithrombin deficiency and protein C deficiency. I do not think that she has any congenital deficiency. This is most likely acquired due to acute thrombotic event. PLAN: I have reviewed her available records and I have discussed with the patient regarding the antithrombin III and protein C deficiency. She has no family history of any thromboembolic disease, except she is not sure whether her brother had any thrombosis or not. The patient was on Plavix before she came in with another stroke on May 08. Dr. Culver, according to Dr. Stover's note, does not want her to take the Plavix or the Coumadin. My recommendation is to start Eliquis if it is okay with Dr. Culver for her stroke. 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 My recommendation is to repeat the antithrombin III and protein C. Regardless, the patient's management is not going to be changed as she will require anticoagulant. I will leave it up to the neurologist to make the decision for the anticoagulation therapy for her stroke. Further recommendations to follow. Thank you for asking my opinion. MD MARCI Carpio/CHETAN /11:21 PM /4:26 PM ACE
[2017-05-26] MEDS: traZODone HCL 50 MG TAB PO SCH (21:22)
[2017-05-27] VITALS (18 sets, daily range): BP systolic 150–184; BP diastolic 85–95; PULSE 78–86; RESP 18–20; TEMP 98.1–98.4; O2SAT 96–99
[2017-05-27] MEDS: METOPROLOL TARTRATE 50 MG TAB PO SCH ×2 (01:12→10:03)
[2017-05-27] MEDS: ACETAMINOPHEN/HYDROcodone 325 MG/7.5 MG TAB PO PRN ×2 (03:39→10:15)
[2017-05-27] MEDS: ALPRAZolam 1 MG TAB PO PRN ×2 (03:39→11:53)
[2017-05-27 05:58] LABS: PROTHROMBIN TIME - PATIENT 22.7 SEC (9.8-11.6)
[2017-05-27] MEDS: GABAPENTIN 300 MG CAP PO SCH (06:03)
[2017-05-27] MEDS: hydrALAZINE HCL 50 MG TAB PO SCH (06:03)
[2017-05-27] MEDS: AMOXICILLIN/CLAVUL SUSP 250 MG/5 ML 100 ML BTL PO SCH (06:03)
[2017-05-27] MEDS ORDERED: FURO20TA PO (08:47)
[2017-05-27] MEDS ORDERED: APIX2.5T PO (08:48)
[2017-05-27] MEDS ORDERED: POTASSIUM CHLORIDE 10 MEQ CONTROLLED RELEASE TAB PO SCH (09:00)
[2017-05-27] MEDS ORDERED: FUROSEMIDE 20 MG TAB PO SCH (09:00)
[2017-05-27] MEDS: buPROPion HCL 150 MG SUSTAINED RELEASE TAB PO SCH (10:07)
[2017-05-27] MEDS: predniSONE 10 MG TAB PO SCH (10:07)
[2017-05-27] MEDS: SODIUM CHLORIDE 0.9% FLUSH 10 ML FLUSH IV FLUSH SCH (10:08)
[2017-05-27] MEDS: PRAVASTATIN SOD 40 MG TAB PO SCH (10:08)
[2017-05-27] MEDS: PANTOPRAZOLE SOD 40 MG DELAYED RELEASE TAB PO SCH (10:09)
[2017-05-27] MEDS: LISINOPRIL 20 MG TAB PO SCH (10:09)
[2017-05-27] MEDS: SERTRALINE HCL 50 MG TAB PO SCH (10:09)
[2017-05-27] MEDS ORDERED: AMOX500T2 PO (10:48)
[2017-05-27] MEDS ORDERED: OXYB5TAB10 PO (10:50)
[2017-05-27] MEDS ORDERED: OXYBUTYNIN CHLORIDE 5 MG TAB PO ONE (11:00)
--- NOTE | 2017-05-27 11:01 | HHI.PR ---
Subjective Remarks In the chair. Says she feels better. SOB improving. Noted with leakage around the [place] will start Ditropan. Patient denies any new motor or sensory deficit. No n/v/d/c. Objective Vitals Vital Signs Date Time Temp Pulse Resp B/P Pulse Ox O2 Delivery O2 Flow Rate FiO2 05/27/17 09:10 96 Nasal Cannula 2.00 05/27/17 07:10 98.4 82 20 184/85 97 05/27/17 07:10 97 Nasal Cannula 2.00 05/27/17 07:10 79 05/27/17 06:00 78 05/27/17 05:30 82 05/27/17 04:43 16 05/27/17 04:00 80 05/27/17 03:41 98.1 81 20 163/95 98 05/27/17 03:00 82 05/27/17 03:00 98 Nasal Cannula 2.00 05/27/17 02:38 99 Nasal Cannula 2.00 05/27/17 02:00 81 05/27/17 01:00 80 05/27/17 00:00 80 05/26/17 23:30 98 Nasal Cannula 2.00 05/26/17 23:26 99.1 80 18 141/81 98 05/26/17 23:00 84 05/26/17 22:00 84 05/26/17 21:00 90 05/26/17 20:00 98.9 98 22 157/87 96 05/26/17 20:00 90 05/26/17 19:00 96 Nasal Cannula 2.00 05/26/17 18:00 76 05/26/17 17:00 74 05/26/17 16:51 96 Nasal Cannula 2.00 05/26/17 16:00 97 Nasal Cannula 2.00 05/26/17 16:00 78 05/26/17 16:00 98.2 78 20 158/88 97 05/26/17 14:00 78 05/26/17 13:00 78 05/26/17 12:00 80 05/26/17 11:29 97 Nasal Cannula 2.00 05/26/17 11:28 98.4 76 20 124/86 97 05/26/17 11:00 83 I/O 05/26/17 05/26/17 05/26/17 05/27/17 05/27/172/17 07:00 15:00 23:00 07:00 15:00 23:00 Intake Total 240 ml 775 ml 180 ml Output Total 1950 ml 1900 ml 725 ml Balance -1710 ml -1125 ml -545 ml Intake Oral 240 ml 775 ml 180 ml Output Urine Total 1950 ml 1900 ml 725 ml # Bowel Movements 2 2 Result Diagram: 05/26/17 0807 05/26/17 0807 Imaging Last Impressions Chest X-Ray 05/26/17 0600 Signed Impressions: Service Date/Time: Friday, May 26, 2017 04:20 - CONCLUSION: 1. No significant change in the bilateral alveolar infiltrates most characteristic of pulmonary edema. 2. Cardiomegaly and small effusions are present and the findings are most consistent with congestive heart failure. Jeyson Asher MD Objective Remarks GENERAL: 52 yo F, appearing much older than stated age, in no acute distress. CARDIOVASCULAR: Normal rate and regular rhythm without murmurs, gallops, or rubs. RESPIRATORY: Better air movement. Faint rhonchi bilaterally. No wheezing. GASTROINTESTINAL: Abdomen soft, non-tender, non-distended. Normal active bowel sounds MUSCULOSKELETAL: Extremities without cyanosis, or edema. NEURO: Alert & Oriented x4 to person, place, time, situation. Right sided weakness, improving. Right side is no longer flaccid. RL 3/5. RUE 2/5. Facial droop, slow speech. PSYCH: Appropriate mood and affect. Procedures none A/P Problem List: (1) Dysphagia as late effect of cerebrovascular accident (CVA) ICD Code: I69.391 Status: Acute (2) Dysarthria as late effect of cerebrovascular accident (CVA) ICD Code: I69.322 Status: Acute (3) Facial droop due to stroke ICD Code: I63.9 Status: Acute (4) Impaired mobility and activities of daily living ICD Code: Z74.09 Status: Acute (5) Respiratory failure ICD Code: J96.90 Status: Acute (6) Sepsis due to pneumonia ICD Code: J18.9 Status: Acute (7) HTN (hypertension) ICD Code: I10 Status: Acute (8) E. coli UTI ICD Code: N39.0 Status: Acute (9) Lupus (systemic lupus erythematosus) ICD Code: M32.9 Status: Chronic (10) Porphyria cutanea tarda ICD Code: E80.1 Status: Acute Assessment and Plan 52-year-old female status post basal ganglia and left pontine CVA with worsening respiratory failure secondary to pneumonia and sepsis. Patient is being admitted from [facility] to ICU for treatment. Hypertension, uncontrolled. She is still requiring. wean as tolerated keep SBP < 140. Titrate down as tolerated. Increased Metoprolol to 50 mg TID. Increase lisinopril to 20 mg PO Daily. Increase hydralazine to 50 mg po tid , monitor BP. Continue amlodipine 10 mg PO daily. Hydralazine and labetalol IV as needed. Clonidine PO as need. Continue to monitor closely and adjust meds as indicated. Sepsis due to pneumonia: HCAP Acute respiratory failure requiring high flow NC and BiPAP. Titrate down as tolerated. Currently on 2L by NC. Bilateral pleural effusion. Start lasix. Monitor closely UOP. monitor closely kidney function. Repeat Chest x-ray reviewed, shows some improvement. Received Zosyn and vancomycin, appreciate infectious disease following. Change to Augmentin and give for 7 days of Abx per ID specialist po. Follow cultures. Sputum culture when the patient is able to expectorate. Appreciate Pulmonology recommendations. Required high flow by nasal canula. Probable underlying COPD. Currently on NC satting well Scheduled DuoNeb treatments Solu-Medrol IV, taper as tolerated. Switched to PO prednisone by pulm. BiPAP as needed. Right basal ganglia infarct and left pontine CVA Status post TPA. Patient with poss prot C deific DC Coumadin, start eliquis 2.5 mg bid per hem/onc recommendations and also Dr Culver neurology. Start Eliquis when INR is < [address] Culver patient can be discharged to [facility] and to have call his cell number at [phone] with INR reading the next day and he will decide based on INR level when to start Eliquis. Monitor closely INR Pharmacy following. Continue Lipitor Microcytic Anemia, acute on chronic Hemoglobin 7.5 on admission s/p 1 unit of PRBC-->9.7>>7.8>>9.2: No active source of bleeding identified. Status post IV Venofer. Monitor H/H and transfuse if HGB< 7 or if patient symptomatic and HGB<9 Continue with by mouth Ferrous sulfate twice a day Follow CBC. H/H stable Hemoccult stool neg Urinary tract infection: E coli UTI. Abx as above. Bladder spasm: Star ditropan. Anxiety/depression: Continue with Zoloft Hypokalemia: Replace and monitor. Hyperlipidemia. On Pravastatin History of hepatitis C. Chronic DVT prophylaxis: On Coumadin Discharge Planning Patient is improving. DC to inpatient [facility] in stable condition. Patient with poss prot C deific DC Coumadin, start eliquis 2.5 mg bid per hem/onc recommendations and also Dr Culver neurology. Discussed with Dr Culver. Start Eliquis when INR is < [address] Culver patient can be discharged to [facility] and to have call his cell number at [phone] with INR reading the next day and he will decide based on INR level when to start Eliquis. Prema Stover MD May 27, 2017 11:00
[2017-05-27] MEDS: FERROUS SULFATE 325 MG (65 MG ELEMENTAL IRON) TAB PO SCH (11:51)
--- NOTE | 2017-05-27 12:54 | HHI.PR ---
Subjective Remarks Remains Stable , On O2 at 2L and sats 97. Right side weakness improved. [facility]. Objective Vital Signs Date Time Temp Pulse Resp B/P Pulse Ox O2 Delivery O2 Flow Rate FiO2 05/27/17 11:54 18 05/27/17 11:00 98.1 78 20 150/90 99 05/27/17 11:00 84 05/27/17 11:00 99 Nasal Cannula 2.00 05/27/17 10:00 84 05/27/17 09:10 96 Nasal Cannula 2.00 05/27/17 09:00 86 05/27/17 08:00 78 05/27/17 07:10 98.4 82 20 184/85 97 05/27/17 07:10 97 Nasal Cannula 2.00 05/27/17 07:10 79 05/27/17 06:00 78 05/27/17 05:30 82 05/27/17 04:00 80 05/27/17 03:41 98.1 81 20 163/95 98 05/27/17 03:00 82 05/27/17 03:00 98 Nasal Cannula 2.00 05/27/17 02:38 99 Nasal Cannula 2.00 05/27/17 02:00 81 05/27/17 01:00 80 05/27/17 00:00 80 05/26/17 23:30 98 Nasal Cannula 2.00 05/26/17 23:26 99.1 80 18 141/81 98 05/26/17 23:00 84 05/26/17 22:00 84 05/26/17 21:00 90 05/26/17 20:00 98.9 98 22 157/87 96 05/26/17 20:00 90 05/26/17 19:00 96 Nasal Cannula 2.00 05/26/17 18:00 76 05/26/17 17:00 74 05/26/17 16:51 96 Nasal Cannula 2.00 05/26/17 16:00 97 Nasal Cannula 2.00 05/26/17 16:00 78 05/26/17 16:00 98.2 78 20 158/88 97 05/26/17 14:00 78 05/26/17 13:00 78 I/O 05/26/17 05/26/17 05/26/17 05/27/17 05/27/17 05/27/17 07:00 15:00 23:00 07:00 15:00 23:00 Intake Total 240 ml 775 ml 180 ml Output Total 1950 ml 1900 ml 725 ml Balance -1710 ml -1125 ml -545 ml Intake Oral 240 ml 775 ml 180 ml Output Urine Total 1950 ml 1900 ml 725 ml # Bowel Movements 2 2 Result Diagram: 05/26/1780605/26/17 08 Objective Remarks GENERAL: 52 yo F,average built , in no acute distress. CARDIOVASCULAR: Normal rate and regular rhythm without murmurs, gallops, or rubs. RESPIRATORY: Occ Wheeze. No Crackles GASTROINTESTINAL: Abdomen soft, non-tender, non-distended. Normal active bowel sounds. NO mass. MUSCULOSKELETAL: Extremities without cyanosis, or edema. NEURO: Alert & Oriented x4 to person, place, time, situation. Right sided weakness, improving. PSYCH: Appropriate mood and affect. Assessment and Plan Assessment and Plan A/P Problem List: (1) Respiratory failure ICD Code: J96.90 Status: Acute (2) Sepsis due to pneumonia ICD Code: J18.9 Status: Acute # Pulmonary Edema/Effusions #CVA with Right hemiparesis Plan : 1. Wean O2 to 2 L. and to RA 2. Continue Nebs q6h.Duoneb.PRN 3. Soft diet. 4. PT and OT Evaluation. 5. IS at bedside qid. 6. Lasix 20 mg daily 7. [place] 7.5 mg q6h prn. 8. K Tab 10 Meq daily. Ileana Branch MD May 27, 2017 12:53
--- NOTE | 2017-05-27 20:55 | PD.ONC.PN ---
Subjective Subjective Remarks no new c/o Objective Data Date Time Temp Pulse Resp B/P Pulse Ox O2 Delivery O2 Flow Rate FiO2 05/27/17 13:00 80 05/27/17 12:00 78 05/27/17 11:54 18 05/27/17 11:00 98.1 78 20 150/90 99 05/27/17 11:00 84 05/27/17 11:00 99 Nasal Cannula 2.00 05/27/17 10:00 84 05/27/17 09:10 96 Nasal Cannula 2.00 05/27/17 09:00 86 05/27/17 08:00 78 05/27/17 07:10 98.4 82 20 184/85 97 05/27/17 07:10 97 Nasal Cannula 2.00 05/27/17 07:10 79 05/27/17 06:00 78 05/27/17 05:30 82 05/27/17 04:00 80 05/27/17 03:41 98.1 81 20 163/95 98 05/27/17 03:00 82 05/27/17 03:00 98 Nasal Cannula 2.00 05/27/17 02:38 99 Nasal Cannula 2.00 05/27/17 02:00 81 05/27/17 01:00 80 05/27/17 00:00 80 05/26/17 23:30 98 Nasal Cannula 2.00 05/26/17 23:26 99.1 80 18 141/81 98 05/26/17 23:00 84 05/26/17 22:00 84 05/26/17 21:00 90 05/27/17 05/27/17 05/27/17 06:59 14:59 22:59 Intake Total 180 ml Output Total 725 ml Balance -545 ml Result Diagram: 05/26/17 0807 05/26/17 0807 Laboratory Results Laboratory Tests Test 05/27/17 04:44 Prothrombin Time 22.7 SEC Prothromb Time International 2.0 RATIO Ratio Objective Remarks GENERAL: chronically ill appearing middle aged female upright in bed in [facility]. SKIN: Warm and dry. HEAD: Normocephalic. EYES: No injection or drainage. NECK: Supple, trachea midline. CARDIOVASCULAR: Regular rate and rhythm RESPIRATORY: diminished at bases, anterior story clear. on 2L O2 via NC GASTROINTESTINAL: Abdomen soft, non-tender, nondistended. EXTREMITIES: No cyanosis, or edema. MUSCULOSKELETAL: Adequate muscle tone. NEUROLOGICAL: right sided paresis. awake and alert. Assessment/Plan Problem List: (1) Stroke Status: Acute Plan: 05/27 Repeat protein C is normal . AT III is still pending Recommend to start eliquis if ok with neurologist DR Culver. 05/26: await protein C and anti-thrombin III activity --s/p tpa --on coumadin --during last hospitalization, in mid April, protein C activity found to be low, anti-thrombin III was low as well. --hematology consulted to assess for hypercoagulable state. Assessment 52y/o female with h/o right basal ganglia and left pontine CVA, admitted from [facility] to [facility] with pneumonia and sepsis. Problem Qualifiers (1) Stroke: Genet Judd MD May 27, 2017 20:55
[2017-05-27] MEDS ORDERED: OXYBUTYNIN CHLORIDE 5 MG TAB PO SCH (21:00)
== END 2017-05-27 13:43 | DRG 871 ==
LOC: HCVR 11:00 → HCIS 05-21 20:27
PROVIDERS: ADMIT Hospitalist; ATTEND Hospitalist
DX: A41.9 Sepsis, unspecified organism (principal); J18.9 Pneumonia, unspecified organism; J96.01 Acute respiratory failure with hypoxia; J90 Pleural effusion, not elsewhere classified; J81.1 Chronic pulmonary edema; E80.1 Porphyria cutanea tarda; D68.59 Other primary thrombophilia; J44.0 Chronic obstructive pulmonary disease with (acute) lower respiratory infection; N39.0 Urinary tract infection, site not specified; I69.351 Hemiplegia and hemiparesis following cerebral infarction affecting right dominant side; M32.9 Systemic lupus erythematosus, unspecified; D50.9 Iron deficiency anemia, unspecified; I10 Essential (primary) hypertension; F32.9 Major depressive disorder, single episode, unspecified; F41.9 Anxiety disorder, unspecified; E78.5 Hyperlipidemia, unspecified; G89.4 Chronic pain syndrome; E87.6 Hypokalemia; I69.391 Dysphagia following cerebral infarction; I69.392 Facial weakness following cerebral infarction; I69.322 Dysarthria following cerebral infarction; N32.89 Other specified disorders of bladder; M19.90 Unspecified osteoarthritis, unspecified site; B18.2 Chronic viral hepatitis C; F17.210 Nicotine dependence, cigarettes, uncomplicated; B96.20 Unspecified Escherichia coli [E. coli] as the cause of diseases classified elsewhere; Y95 Nosocomial condition; Z82.3 Family history of stroke; Z83.3 Family history of diabetes mellitus
CPT/HCPCS: 71010; 76937; 80048; 80202; 82272; 82728; 83540; 83550; 83735; 84100; 84132; 85007; 85025; 85027; 85300; 85303; 85610; 86038; 86039; 87070; 87205; 87641; 94150; 94640; 94664; 94667; 94668; J0360; J2405; J2543; J2920; J3370; J3480; J7030; J7050; J7512

== ENCOUNTER → 2017-06-03 | Outpatient (CLI) | payer MEDICARE, OTHER ==
[~2017-06-03] VITALS: Ht 167.6 cm; Wt 68.7 kg
[~2017-06-03] MED LIST changes: +ALPR0.25 PO; +ALPR2TAB3 PO; +AMLO10 PO; +AMOX500T2 PO; +APIX2.5T PO; +APIX5TAB PO; +ASPI-99 PO; +CALC500T30 PO; +CARA1TAB6 PO; +CENTCHW4 PO; +CHOL5000 PO; -CIPR250T2 PO; +COLL30T TOPICAL; +COMMODE 3-IN-11 MIS; -COUM3TAB PO; +DICY10CA12 PO; +FERR325T20 PO; +FURO20TA PO; +FURO40TA PO; -GABA600T PO; +HYDR-3516 PO; +HYDR-3583 PO; +HYDR-3800 PO; +HYDR-3801 PO; +HYDR-4107 PO; +HYDR12.56 PO; +IPRASOL NEB; +KONS100P3 PO; +LACT PO; +LEVA750T9 PO; +LIDO1PAD52 TOPICAL; +LISI-515 PO; +LOSA50TA PO; +MAGN100T2 PO; +METH500T3 PO; +METO-309 PO; +MSIR15 PO; +NEUR300C PO; +NEUR400C PO; +NYST15T TOPICAL; +OXYB5TAB10 PO; +PANT40TA3 PO; +POTA-243 PO; +POTA10TA2 PO; +PRAV40TA PO; +PRED10 PO; +PRED5TAB PO; +PROPOFOL 200 MG/20 ML AMP IV ONE; -ROBA500T PO; +SENN1TAB PO; +TRAZ50TA12 PO; +VITA10002 PO; +WELLTAB39 PO; +WHEEMIS3; +XANA1TAB2 PO; -XANA2TAB2 PO; -ZOFR8TAB PO; +ZOLO100T PO; +[UNRECOGNIZED DRUG - CODE] IV
[2017-06-03 13:51] VITALS: TEMP 98.1
[2017-06-03 15:05] VITALS: BP 160/76; PULSE 72; RESP 18; O2SAT 96
== END ==
LOC: HSDC 12:44
PROVIDERS: ATTEND Internal Medicine Gastroenterology
DX: D64.9 Anemia, unspecified (principal); K29.50 Unspecified chronic gastritis without bleeding; K57.90 Diverticulosis of intestine, part unspecified, without perforation or abscess without bleeding; R10.9 Unspecified abdominal pain

== ENCOUNTER 2017-06-25 16:30 | Inpatient (IN) | payer MEDICARE, OTHER ==
[~2017-06-25] VITALS: Ht 167.6 cm; Wt 48.8 kg
[2017-06-25] VITALS (7 sets, daily range): BP systolic 122–183; BP diastolic 61–97; PULSE 64–79; RESP 16–20; TEMP 97.9–98; O2SAT 97–99
[~2017-06-25 16:30] MED LIST changes: -ALPR2TAB3 PO; -AMOX500T2 PO; -APIX5TAB PO; -ASPI-99 PO; -CARA1TAB6 PO; -CENTCHW4 PO; -CHOL5000 PO; -DICY10CA12 PO; -HYDR-3516 PO; -HYDR-3801 PO; -HYDR12.56 PO; -IPRASOL NEB; -KONS100P3 PO; -LACT PO; -LEVA750T9 PO; -LOSA50TA PO; -METH500T3 PO; -MORP1TAB25 PO; -MSIR15 PO; -PLAV75TA29 PO; -PRED5TAB PO; -PROPOFOL 200 MG/20 ML AMP IV ONE; -SIMV20TA PO; -TRAZ1TAB45 PO; -WELLTAB39 PO; -ZOLO100T PO
--- NOTE | 2017-06-25 16:47 | PD ---
Physical Exam Time Seen by Provider: 16:44 Narrative 52yo F c/o bilateral wrist pain after falling x2. She was discharged yesterday from [facility] rehab after having 2 strokes. Says she was dc'd too early. Reports hitting head, but denies LOC. Takes Eloquis. Patient seen in triage. VS reviewed. Awaiting bed placement. Data Data Last Documented VS Vital Signs Date Time Temp Pulse Resp B/P (MAP) Pulse Ox O2 Delivery O2 Flow Rate FiO2 06/25/17 16:42 97.9 64 20 122/61 (81) 97 Room Air MDM Supervised Visit with ANNEMARIE: Ary Valdes Jun 25, 2017 16:47
--- NOTE | 2017-06-25 17:44 | RADRPT ---
EXAM DATE/TIME: 06/25/2017 17:12 [facility] COMPARISON: No previous studies available for comparison. INDICATIONS : Patient fell two times today, pain in both wrists. MEDICAL HISTORY : Cardiovascular disease. Hypertension. Lupus SURGICAL HISTORY : Umbilical hernia repair. Hysterectomy. section. ENCOUNTER: Initial ACUITY: 1 day PAIN SCORE: 7/10 LOCATION: Bilateral wrists FINDINGS: Three view examination of the left wrist demonstrates no soft tissue swelling, dislocation, or fractu re. The carpal bones are in normal alignment. There are chronic changes involving the lunate bone wi th patchy sclerosis and lucency. There are minimal osteoarthritic changes with sclerosis. The joint s paces are maintained. There is diffuse osteopenia. CONCLUSION: 1. No acute fracture or malalignment. 2. Chronic changes involving the lunate bone with patchy sclerosis and lucency. 3. Mild osteoarthritic change. Jeyson Asher MD on June 25, 2017 at 17:41 Board Certified Radiologist. This report was verified electronically.
--- NOTE | 2017-06-25 17:45 | RADRPT ---
EXAM DATE/TIME: 06/25/2017 17:11 [facility] COMPARISON: No previous studies available for comparison. INDICATIONS : Bilateral wrists pain post fall today. MEDICAL HISTORY : Lupus. Hypertension Cardiovascular disease. SURGICAL HISTORY : Inguinal hernia repair. Hysterectomy. section ENCOUNTER: Initial ACUITY: 1 day PAIN SCORE: 7/10 LOCATION: Bilateral wrists FINDINGS: Three view examination of the right wrist demonstrates no acute fracture or malalignment. There is so ft tissue swelling over the dorsum of the wrist. The carpal bones are in normal alignment. Normal deg enerative changes are noted with slight sclerosis. The joint spaces are maintained. There is diffuse osteopenia. CONCLUSION: 1. Soft tissue swelling with no acute fracture or malalignment. 2. Osteopenia and minimal degenerative change. Jeyson Asher MD on June 25, 2017 at 17:42 Board Certified Radiologist. This report was verified electronically.
--- NOTE | 2017-06-25 18:48 | PD ---
HPI Chief Complaint: Fall Time Seen by Provider: 18:12 Travel History International Travel<30 days: No Contact w/Intl Traveler<30days: No Traveled to known affect area: No History of Present Illness HPI Patient's 52-year-old female presenting to emergency for evaluation after a fall. She was discharged from [facility] yesterday and since she's been home she has fallen twice. Once when she fell out of her wheelchair face forward onto the ground and bumping her head last night, and then she fell out of bed this morning when she attempted to get up on her own. Patient is supposed to be using assistance with transfer to the wheelchair only and she has been attempting to get up on her own subsequent relief falling. Today she presents to the emergency department with bilateral wrist pain secondary to the fall. She is currently on Eliquis, she had a stroke in April 2017 which was the reason for the admission to the rehabilitation Center. 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) Anxiety: Yes Depression: Yes Heart Rhythm Problems: No Cancer: No High Cholesterol: Yes Chemotherapy: No Congestive Heart Failure: No COPD: No Cerebrovascular Accident: Yes (RT basal ganglia and left pontine infarction, R SIDED WEAKNESS ) Diabetes: No Diminished Hearing: No Endocrine: No Gastrointestinal Disorders: Yes (Gastritis, and stomach discomfort supposedly caused by blood pressure med,) Genitourinary: Yes (incontinence, bladder spasm) Headaches: No Hepatitis: Yes (c) Hiatal Hernia: No Hypertension: Yes Implanted Vascular Access Dvce: Yes Kidney Stones: No Neurologic: Yes (Central Tremors, right hemiparesis with facial droop) Migraines: Yes Radiation Therapy: No Renal Failure: No Seizures: No Sickle Cell Disease: No Sleep Apnea: No Thyroid Disease: No Tetanus Vaccination: > 5 Years Influenza Vaccination: Yes ?: Not Menopausal: Yes Past Surgical History Abdominal Surgery: Yes (INGUINAL HERNIA REPAIR) AICD: No Arteriovenous Shunt: No Body Medical Devices: right shoulder plates and screws along with a hernia mesh Cardiac Surgery: No Section: Yes Endocrine Surgery: No Eye Surgery: No Genitourinary Surgery: No Gynecologic Surgery: Yes (HYSTERECTOMY, ) Hysterectomy: Yes Insulin Pump: No Joint Replacement: No Neurologic Surgery: No Oral Surgery: Yes (dentures) Pacemaker: No Thoracic Surgery: No Other Surgery: Yes (R shoulder ORIF April 03) Social History Alcohol Use: No Tobacco Use: No (QUIT 05/08/2017) Substance Use: No Allergies-Medications (Allergen,Severity, Reaction): Coded Allergies: Influenza Virus Vaccines (Unverified Allergy, Severe, Respiratory Failure , 06/25/17) sulfamethoxazole (Unverified Allergy, Severe, SKIN PROBLEMS, 06/25/17) trimethoprim (Unverified Allergy, Severe, SKIN PROBLEMS, 06/25/17) Reported Meds & Prescriptions Reported Meds & Active Scripts Active Wheelchair (Device) 1 Mis Mis Ea .ROUTE DIRECTED Nystatin Topical (Nystatin) 100,000 unit/gm Cream 1 Applic TOPICAL BID 30 Days Hydrocodone-Acetaminophen 10-325 mg Tab 1 Tab PO Q8HR PRN Xanax (Alprazolam) 1 Mg Tab 1 Mg PO Q8H PRN Hydralazine HCl 50 Mg Tablet 50 Mg PO Q8HR 30 Days Catapres (Clonidine) 0.1 Mg Tab 0.1 Mg PO Q6H PRN 30 Days Calcium Oyster Shell (Oyster Shell) 500 Mg Calcium (1250 Mg) Tab 1,000 Mg PO BID 30 Days Vitamin B-12 (Cyanocobalamin) 1,000 Mcg Tab 1,000 Mcg PO DAILY 30 Days Ditropan (Oxybutynin Chloride) 5 Mg Tab 5 Mg PO Q12HR 30 Days Prednisone 10 Mg Tab 10 Mg PO DAILY 3 Days Pantoprazole (Pantoprazole Sodium) 40 Mg Tab 40 Mg PO DAILY 30 Days Senna Plus 8.6-50 mg (Sennosides-Docusate Sodium) 8.6 Mg-50 Mg Tab 1 Tab PO BID 30 Days Furosemide 40 Mg Tab 40 Mg PO DAILY 30 Days Klor-Con 10 (Potassium Chloride) 10 Meq Tab 10 Meq PO DAILY 30 Days Trazodone (Trazodone HCl) 50 Mg Tab 100 Mg PO HS 30 Days Zoloft (Sertraline HCl) 50 Mg Tab 50 Mg PO DAILY 30 Days Wellbutrin SR 12 HR (Bupropion HCl) 150 Mg Tab 150 Mg PO BID 30 Days Neurontin (Gabapentin) 400 Mg Cap 400 Mg PO Q8HR 30 Days Lisinopril 20 Mg Tab 20 Mg PO BID 30 Days Norvasc (Amlodipine Besylate) 10 Mg Tab 10 Mg PO DAILY 30 Days Metoprolol Tartrate 25 Mg Tab 75 Mg PO Q8H 30 Days Pravachol (Pravastatin) 40 Mg Tab 40 Mg PO DAILY 30 Days Eliquis (Apixaban) 2.5 Mg Tab 5 Mg PO BID 30 Days Ferosul (Ferrous Sulfate) 325 Mg (65 Mg Iron) Tablet 325 Mg PO Q8HR 30 Days Santyl Topical (Collagenase) 250 Unit/Gm Oint 1 Applic TOPICAL DAILY Lidocaine Patch 12 HR (Lidocaine) 5 % Patch 1 Patch TOPICAL DAILY PRN Remove patch after 12 hours Commode 3-in-1 (Device) 1 Mis Mis Ea .ROUTE DIRECTED Eliquis (Apixaban) 2.5 Mg Tab 2.5 Mg PO BID START eliquis when INR is less than 2. Call Dr Culver regarding INR Furosemide 20 Mg Tab 20 Mg PO DAILY Norvasc (Amlodipine Besylate) 10 Mg Tab 10 Mg PO DAILY Prednisone 10 Mg Tab 10 Mg PO DAILY Lopressor (Metoprolol Tartrate) 50 Mg Tab 50 Mg PO Q8H Lisinopril 20 Mg Tab 20 Mg PO DAILY Hydralazine HCl 50 Mg Tablet 50 Mg PO Q8HR Trazodone (Trazodone HCl) 50 Mg Tab 150 Mg PO HS 1 Days Zoloft (Sertraline HCl) 50 Mg Tab 50 Mg PO DAILY 1 Days Pravachol (Pravastatin) 40 Mg Tab 40 Mg PO DAILY 1 Days Pantoprazole (Pantoprazole Sodium) 40 Mg Tab 40 Mg PO DAILY 1 Days Neurontin (Gabapentin) 300 Mg Cap 600 Mg PO Q8H 1 Days Ferosul (Ferrous Sulfate) 325 Mg Tablet 325 Mg PO BID@12,17 1 Days Wellbutrin SR 12 HR (Bupropion HCl) 150 Mg Tab 150 Mg PO BID 1 Days Reported Alprazolam 0.25 Mg Tab 0.125 Mg PO Q4H PRN Hydrocodone-Acetaminophen 5-300 Mg Tab 1 Tab PO Q6H PRN Omnipaque (Iohexol) 140 Mg/Ml Inj 80 Ml IV STK-MED ONE Magnesium Citrate 100 Mg Tab 300 Mg PO DAILY PRN Potassium Chloride ER (Potassium Chloride) 10 Meq Tab 10 Meq PO DAILY Ditropan (Oxybutynin Chloride) 5 Mg Tab 5 Mg PO Q12HR Review of Systems Except as stated in HPI: all other systems reviewed are Neg Musculoskeletal: Positive: Myalgias, Pain Neurologic: Positive: Weakness Physical Exam Narrative GENERAL: Thin, well-developed, alert female, resting comfortably. at bedside, she is in no acute distress. Patient appears older than stated age. SKIN: Warm and dry. No rash or obvious lesions, no ecchymosis or edema noted to extremities. HEAD: Atraumatic. Normocephalic. EYES: Pupils equal and round. No scleral icterus. No injection or drainage. ENT: No nasal bleeding or discharge. Mucous membranes pink and moist. NECK: Trachea midline. No JVD. CARDIOVASCULAR: Regular rate and rhythm. RESPIRATORY: No accessory muscle use. Clear to auscultation. Breath sounds equal bilaterally. GASTROINTESTINAL: Abdomen soft, non-tender, nondistended. Hepatic and splenic margins not palpable. MUSCULOSKELETAL: Extremities without clubbing, cyanosis, or edema. No obvious deformities. Full range of motion of bilateral wrists, no tenderness to palpation, patient is neurovascularly intact. NEUROLOGICAL: Awake and alert. No obvious cranial nerve deficits. Motor grossly within normal limits. 3 out of 5 muscle strength in the right arms and legs. 5/5 in the left Normal speech. Residual right hemiparesis. PSYCHIATRIC: Appropriate mood and affect; insight and judgment normal. Data Data Last Documented VS Vital Signs Date Time Temp Pulse Resp B/P (MAP) Pulse Ox O2 Delivery O2 Flow Rate FiO2 06/25/17 20:31 98 Room Air 06/25/17 18:20 71 18 06/25/17 16:42 97.9 Orders Orders Wrist, Complete ([id number]) (06/25/17 16:47) Wrist, Complete ([id number]) (06/25/17 16:47) Ct Brain W/O Iv Contrast(Rout) (06/25/17 ) Ct Cerv Spine W/O Contrast (06/25/17 ) Prothrombin Time / Inr (Pt) (06/25/17 20:17) Act Partial Throm Time (Ptt) (06/25/17 20:17) Complete Blood Count With Diff (06/25/17 20:17) Comprehensive Metabolic Panel (06/25/17 20:17) Ecg Monitoring (06/25/17 20:17) Iv Access Insert/Monitor (06/25/17 20:17) Oximetry (06/25/17 20:17) Sodium Chloride 0.9% Flush (Ns Flush) (06/25/17 20:30) Admit Order (Ed Use Only) (06/25/17 20:50) Consult Neurology (06/25/17 ) Labs Laboratory Tests Test 06/25/17 20:26 06/25/17 20:50 White Blood Count 4.0 TH/MM3 Red Blood Count 3.86 MIL/MM3 Hemoglobin 9.9 GM/DL Hematocrit 31.2 % Mean Corpuscular Volume 80.7 FL Mean Corpuscular Hemoglobin 25.7 PG Mean Corpuscular Hemoglobin Concent 31.8 % Red Cell Distribution Width 22.1 % Platelet Count 309 TH/MM3 Mean Platelet Volume 7.6 FL Neutrophils (%) (Auto) 60.9 % Lymphocytes (%) (Auto) 33.4 % Monocytes (%) (Auto) 4.5 % Eosinophils (%) (Auto) 0.4 % Basophils (%) (Auto) 0.8 % Neutrophils # (Auto) 2.4 TH/MM3 Lymphocytes # (Auto) 1.3 TH/MM3 Monocytes # (Auto) 0.2 TH/MM3 Eosinophils # (Auto) 0.0 TH/MM3 Basophils # (Auto) 0.0 TH/MM3 CBC Comment DIFF FINAL Differential Comment Prothrombin Time 10.7 SEC Prothromb Time International Ratio 1.0 RATIO Activated Partial Thromboplast Time 28.4 SEC Blood Urea Nitrogen 23 MG/DL Creatinine 0.44 MG/DL Random Glucose 79 MG/DL Total Protein 6.2 GM/DL Albumin 2.3 GM/DL Calcium Level 8.2 MG/DL Alkaline Phosphatase 100 U/L Aspartate Amino Transf (AST/SGOT) 31 U/L Alanine Aminotransferase (ALT/SGPT) 32 U/L Total Bilirubin 0.2 MG/DL Sodium Level 138 MEQ/L Potassium Level 3.5 MEQ/L Chloride Level 100 MEQ/L Carbon Dioxide Level 29.0 MEQ/L Anion Gap 9 MEQ/L Estimat Glomerular Filtration Rate 149 ML/MIN Nasal Screen MRSA (PCR) MRSA NOT DETECTED MDM Medical Decision Making Medical Screen Exam Complete: Yes Emergency Medical Condition: Yes Medical Record Reviewed: Yes Interpretation(s) Vital Signs Date Time Temp Pulse Resp B/P (MAP) Pulse Ox O2 Delivery O2 Flow Rate FiO2 06/25/17 18:23 Room Air 06/25/17 18:20 71 18 136/75 (95) 97 Room Air 06/25/17 16:42 97.9 64 20 122/61 (81) 97 Room Air Differential Diagnosis Concussion versus hemorrhage versus fracture versus other Narrative Course Patient's 52-year-old female presenting to the emergency department for evaluation of bilateral wrist pain and head injury after falling out of her wheelchair and falling out of bed trying to get up on her own. Patient vital signs are stable, she has residual right althea-paresis. Bilateral wrist x-rays are negative for acute fracture. CT of brain and cervical spine were ordered, patient is anti-coagulated on Eliquis. She does not appear to have any new focal deficits. Head CT read by radiology shows suspected evolving infarct involving the medial left randy, no hemorrhages seen. CT of the cervical spine with no acute abnormalities, degenerative changes shown. Discussed with Dr. Culver who stated that this is not a new infarct. Neuro will see patient in the morning. Pt will be admitted to blood bank attendant service, pt will likely need rehab placement. at bedside, pt and spouse aware of findings. Labs ordered and pending after CT resulted. Dr. Coles accepted admit. Neurology consult placed. Diagnosis Primary Impression: Hemiparesis affecting right side as late effect of cerebrovascular accident ( CVA) Additional Impressions: Impaired mobility and activities of daily living CVA (cerebral vascular accident) Qualified Codes: I63.8 - Other cerebral infarction Admitting Information Admitting Physician Requests: Admit Condition: Stable Laurita Walls Jun 25, 2017 18:48
--- NOTE | 2017-06-25 19:34 | RADRPT ---
EXAM DATE/TIME: 06/25/2017 18:36 [facility] COMPARISON: CT BRAIN W/O CONTRAST, May 08, 2017, 14:57. CT BRAIN W/O CONTRAST, May 29, 2017, 11:24. INDICATIONS : Fell twice. RADIATION DOSE: 29.40 CTDIvol (mGy) MEDICAL HISTORY : Cerebrovascular disease. Cardiovascular disease Hypertension.Lupus SURGICAL HISTORY : Hysterectomy. ENCOUNTER: Initial ACUITY: 1 day PAIN SCALE: 4/10 LOCATION: cranial TECHNIQUE: Multiple contiguous axial images were obtained of the head. Using automated exposure control and adj ustment of the mA and/or kV according to patient size, radiation dose was kept as low as reasonably a chievable to obtain optimal diagnostic quality images. DICOM format image data is available electro nically for review and comparison. FINDINGS: CEREBRUM: There is a 2.0 x 1.2 cm area of low density seen at the medial left randy. This has evolved from the p rior exam. The ventricles are normal for age. No evidence of midline shift, mass lesion, hemorrhage or acute infarction. No extra-axial fluid collections are seen. POSTERIOR FOSSA: The cerebellum and brainstem are intact. The 4th ventricle is midline. The cerebellopontine angle i s unremarkable. EXTRACRANIAL: The visualized portion of the orbits is intact. There is a 1.5 cm area of focal sclerosis at the left ethmoid sinus likely related to a osteoma. SKULL: The calvaria is intact. No evidence of skull fracture. CONCLUSION: Suspected evolving infarct involving the medial left randy. No hemorrhage is seen. Padilla Heredia MD on June 25, 2017 at 19:26 Board Certified Radiologist. This report was verified electronically.
--- NOTE | 2017-06-25 19:58 | RADRPT ---
EXAM DATE/TIME: 06/25/2017 18:36 [facility] COMPARISON: CT CERVICAL SPINE W/O CONTRAST, March 06, 2017, 23:00. INDICATIONS : Fell twice today. Pain RADIATION DOSE: 18.92 CTDIvol (mGy) MEDICAL HISTORY : Cerebrovascular disease. Cardiovascular disease Hypertension.Lupus SURGICAL HISTORY : Hysterectomy. ENCOUNTER: Initial ACUITY: 1 day PAIN SCALE: 4/10 LOCATION: Neck TECHNIQUE: Volumetric scanning of the cervical spine was performed. Multiplanar reconstructions i n the sagittal, coronal and oblique axial planes were performed. Using automated exposure control a nd adjustment of the mA and/or kV according to patient size, radiation dose was kept as low as reason ably achievable to obtain optimal diagnostic quality images. DICOM format image data is available e lectronically for review and comparison. FINDINGS: VERTEBRAE: Normal vertebral body height. ALIGNMENT: No evidence of subluxation. C2-C3: Disc space demonstrates decreased height. There is minimal bulging and osteophytic ridging w ithout significant stenosis. The neural foramina are normal. C3-C4: Disc demonstrates decreased height. There is slight bulging without significant stenosis. T here is mild uncovertebral hypertrophy. Significant narrowing of the neural foramina is not seen. C4-C5: Disc demonstrates decreased height. There is slight bulging without significant stenosis. T here is mild uncovertebral hypertrophy. There is minimal narrowing of the right neural foramina. The left neural foramina is grossly patent. C5-C6: The disc demonstrates decreased height. A significant impression on the thecal sac is not se en. There is uncovertebral hypertrophy. There is minimal narrowing of the neural foramina. C6-C7: Disc demonstrates decreased height and slight bulging without significant stenosis. There is mild uncovertebral hypertrophy. Neural foraminal narrowing is not seen. C7-T1: The bony spinal canal is normal in size. No evidence of disc bulge or herniation. The neura l foramina are bilaterally patent. CONCLUSION: Mild degenerative changes are seen throughout the cervical spine as described above. An acute abnormality is not seen. Padilla Heredia MD on June 25, 2017 at 19:33 Board Certified Radiologist. This report was verified electronically.
[2017-06-25] MEDS ORDERED: SODIUM CHLORIDE 0.9% FLUSH 10 ML FLUSH IVF PRN (20:30)
[2017-06-25 21:08] LABS: AUTOMATED NEUTROPHIL # 2.4 TH/MM3 (1.8-7.7); BASOPHIL % 0.8 % (0.0-2.0); EOSINOPHIL % 0.4 % (0.0-4.0); HEMATOCRIT 31.2 % (35.0-46.0); HEMO FLAGS DIFF FINAL; LYMPH % 33.4 % (9.0-44.0); LYMPHOCYTE # 1.3 TH/MM3 (1.0-4.8); MEAN CELL VOLUME 80.7 FL (80.0-100.0); MEAN CORPUSCULAR HEMOGLOBIN 25.7 PG (27.0-34.0); MEAN CORPUSCULAR HGB CONC 31.8 % (32.0-36.0); MONO % 4.5 % (0.0-8.0); NEUT % 60.9 % (16.0-70.0); PLATELET COUNT 309 TH/MM3 (150-450); RED BLOOD COUNT 3.86 MIL/MM3 (4.00-5.30); RED CELL DISTRIBUTION WIDTH 22.1 % (11.6-17.2)
[2017-06-25 21:20] LABS: APTT (PATIENT) 28.4 SEC (24.3-30.1); PROTHROMBIN TIME - PATIENT 10.7 SEC (9.8-11.6)
[2017-06-25 21:21] LABS: ANION GAP 9 MEQ/L (5-15); AST (GOT) 31 U/L (15-37); BLOOD UREA NITROGEN 23 MG/DL (7-18); CHLORIDE 100 MEQ/L (98-107); GLOMERULAR FILTRATION RATE 149 ML/MIN (>89); POTASSIUM 3.5 MEQ/L (3.5-5.1); SODIUM (NA) 138 MEQ/L (136-145)
[2017-06-25 21:25] LABS: ALKALINE PHOSPHATASE 100 U/L (45-117); ALT (GPT) 32 U/L (10-53); TOTAL BILIRUBIN ADULT 0.2 MG/DL (0.2-1.0)
--- NOTE | 2017-06-25 21:43 | HHI.HP ---
HPI Service Critical Care Medicine Primary Care Physician Unknown Admission Diagnosis CVA Diagnosis: Travel History International Travel<30 Days: No Contact w/Intl Traveler <30 Da: No Traveled to Known Affected Are: No History of Present Illness 52-year-old female presenting to emergency for evaluation after a fall. She was discharged from [facility] yesterday and since she's been home she has fallen twice. Once when she fell out of her wheelchair face forward onto the ground and bumping her head last night, and then she fell out of bed this morning when she attempted to get up on her own. Patient is supposed to be using assistance with transfer to the wheelchair only and she has been attempting to get up on her own subsequent relief falling. Today she presents to the emergency department with bilateral wrist pain secondary to the fall. She is currently on Eliquis, she had a stroke in April 2017 which was the reason for the admission to the rehabilitation Center. The CT of the head revealed evolving stroke involving left middle randy. She is admitted to ICU as a stroke alert. Review of Systems Constitutional: COMPLAINS OF: Fatigue, Dizziness, DENIES: Diaphoretic episodes , Fever, Weight gain, Weight loss, Chills, Change in appetite, Night Sweats Endocrine: DENIES: Abnorml menstrual pattern, Heat/cold intolerance, Polydipsia , Polyuria, Polyphagia Eyes: DENIES: Blurred vision, Diplopia, Eye inflammation, Eye pain, Vision loss , Photosensitivity, Double Vision Ears, nose, mouth, throat: DENIES: Tinnitus, Hearing loss, Vertigo, Nasal discharge, Oral lesions, Throat pain, Hoarseness, Ear Pain, Running Nose, Epistaxis, Sinus Pain, Toothache, Odynophagia Respiratory: DENIES: Apneas, Cough, Snoring, Wheezing, Hemoptysis, Sputum production, Shortness of breath Cardiovascular: DENIES: Chest pain, Palpitations, Syncope, Dyspnea on Exertion , PND, Lower Extremity Edema, Orthopnea, Claudication Gastrointestinal: DENIES: Abdominal pain, Black stools, Bloody stools, Constipation, Diarrhea, Nausea, Vomiting, Difficulty Swallowing, Anorexia Genitourinary: DENIES: Abnormal vaginal bleeding, Dysmenorrhea, Dyspareunia, Sexual dysfunction, Urinary frequency, Urinary incontinence, Urgency, Hematuria , Dysuria, Nocturia, Vaginal discharge Musculoskeletal: DENIES: Joint pain, Muscle aches, Stiffness, Joint Swelling, Back pain, Neck pain Integumentary: DENIES: Abnormal pigmentation, Pruritus, Rash, Nail changes, Breast masses, Breast skin changes, Nipple discharge Hematologic/lymphatic: DENIES: Bruising, Lymphadenopathy Immunologic/allergic: DENIES: Eczema, Urticaria Neurologic: COMPLAINS OF: Poor Balance, DENIES: Abnormal gait, Headache, Localized weakness, Paresthesias, Seizures, Speech Problems, Tremor Psychiatric: DENIES: Anxiety, Confusion, Mood changes, Depression, Hallucinations, Agitation, Suicidal Ideation, Homicidal Ideation, Delusions Past Family Social History Allergies: Coded Allergies: Influenza Virus Vaccines (Unverified Allergy, Severe, Respiratory Failure , 06/25/17) sulfamethoxazole (Unverified Allergy, Severe, SKIN PROBLEMS, 06/25/17) trimethoprim (Unverified Allergy, Severe, SKIN PROBLEMS, 06/25/17) Past Medical History Hypertension Dyslipidemia Systemic lupus erythematosus CVA Anxiety Depression Past Surgical History Hernia repair section, Hysterectomy, Right shoulder ORIF Reported Medications Reported Meds & Active Scripts Active Wheelchair (Device) 1 Mis Mis Ea .ROUTE DIRECTED Nystatin Topical (Nystatin) 100,000 unit/gm Cream 1 Applic TOPICAL BID 30 Days Hydrocodone-Acetaminophen 10-325 mg Tab 1 Tab PO Q8HR PRN Xanax (Alprazolam) 1 Mg Tab 1 Mg PO Q8H PRN Hydralazine HCl 50 Mg Tablet 50 Mg PO Q8HR 30 Days Catapres (Clonidine) 0.1 Mg Tab 0.1 Mg PO Q6H PRN 30 Days Calcium Oyster Shell (Oyster Shell) 500 Mg Calcium (1250 Mg) Tab 1,000 Mg PO BID 30 Days Vitamin B-12 (Cyanocobalamin) 1,000 Mcg Tab 1,000 Mcg PO DAILY 30 Days Ditropan (Oxybutynin Chloride) 5 Mg Tab 5 Mg PO Q12HR 30 Days Prednisone 10 Mg Tab 10 Mg PO DAILY 3 Days Pantoprazole (Pantoprazole Sodium) 40 Mg Tab 40 Mg PO DAILY 30 Days Senna Plus 8.6-50 mg (Sennosides-Docusate Sodium) 8.6 Mg-50 Mg Tab 1 Tab PO BID 30 Days Furosemide 40 Mg Tab 40 Mg PO DAILY 30 Days Klor-Con 10 (Potassium Chloride) 10 Meq Tab 10 Meq PO DAILY 30 Days Trazodone (Trazodone HCl) 50 Mg Tab 100 Mg PO HS 30 Days Zoloft (Sertraline HCl) 50 Mg Tab 50 Mg PO DAILY 30 Days Wellbutrin SR 12 HR (Bupropion HCl) 150 Mg Tab 150 Mg PO BID 30 Days Neurontin (Gabapentin) 400 Mg Cap 400 Mg PO Q8HR 30 Days Lisinopril 20 Mg Tab 20 Mg PO BID 30 Days Norvasc (Amlodipine Besylate) 10 Mg Tab 10 Mg PO DAILY 30 Days Metoprolol Tartrate 25 Mg Tab 75 Mg PO Q8H 30 Days Pravachol (Pravastatin) 40 Mg Tab 40 Mg PO DAILY 30 Days Eliquis (Apixaban) 2.5 Mg Tab 5 Mg PO BID 30 Days Ferosul (Ferrous Sulfate) 325 Mg (65 Mg Iron) Tablet 325 Mg PO Q8HR 30 Days Santyl Topical (Collagenase) 250 Unit/Gm Oint 1 Applic TOPICAL DAILY Lidocaine Patch 12 HR (Lidocaine) 5 % Patch 1 Patch TOPICAL DAILY PRN Remove patch after 12 hours Commode 3-in-1 (Device) 1 Mis Mis Ea .ROUTE DIRECTED Eliquis (Apixaban) 2.5 Mg Tab 2.5 Mg PO BID START eliquis when INR is less than 2. Call Dr Culver regarding INR Furosemide 20 Mg Tab 20 Mg PO DAILY Norvasc (Amlodipine Besylate) 10 Mg Tab 10 Mg PO DAILY Prednisone 10 Mg Tab 10 Mg PO DAILY Lopressor (Metoprolol Tartrate) 50 Mg Tab 50 Mg PO Q8H Lisinopril 20 Mg Tab 20 Mg PO DAILY Hydralazine HCl 50 Mg Tablet 50 Mg PO Q8HR Trazodone (Trazodone HCl) 50 Mg Tab 150 Mg PO HS 1 Days Zoloft (Sertraline HCl) 50 Mg Tab 50 Mg PO DAILY 1 Days Pravachol (Pravastatin) 40 Mg Tab 40 Mg PO DAILY 1 Days Pantoprazole (Pantoprazole Sodium) 40 Mg Tab 40 Mg PO DAILY 1 Days Neurontin (Gabapentin) 300 Mg Cap 600 Mg PO Q8H 1 Days Ferosul (Ferrous Sulfate) 325 Mg Tablet 325 Mg PO BID@12,17 1 Days Wellbutrin SR 12 HR (Bupropion HCl) 150 Mg Tab 150 Mg PO BID 1 Days Reported Alprazolam 0.25 Mg Tab 0.125 Mg PO Q4H PRN Hydrocodone-Acetaminophen 5-300 Mg Tab 1 Tab PO Q6H PRN Omnipaque (Iohexol) 140 Mg/Ml Inj 80 Ml IV STK-MED ONE Magnesium Citrate 100 Mg Tab 300 Mg PO DAILY PRN Potassium Chloride ER (Potassium Chloride) 10 Meq Tab 10 Meq PO DAILY Ditropan (Oxybutynin Chloride) 5 Mg Tab 5 Mg PO Q12HR Active Ordered Medications Current Medications Medications (Trade) Dose Ordered Sig/[place] Route PRN Reason Start Time Stop Time Status Last Admin Dose Admin Sodium Chloride (NS Flush) 2 ml UNSCH PRN IVF FLUSH AFTER USING IV ACCESS 06/25/17 20:30 Alprazolam (Xanax) 0.125 mg Q4H PRN PO ANXIETY 06/25/17 21:45 06/26/17 01:26 Amlodipine Besylate (Norvasc) 10 mg DAILY PO 06/26/17 09:00 Bupropion HCl (Wellbutrin Sr) 150 mg BID PO 06/26/17 09:00 Clonidine (Catapres) 0.1 mg Q6H PRN PO SYS BP GREATER THAN 150 MMHG 06/25/17 21:45 06/26/17 01:37 Cyanocobalamin (Vitamin B12) 1,000 mcg DAILY PO 06/26/17 09:00 Ferrous Sulfate (Ferrous Sulfate) 325 mg BID@ PO 06/26/17 12:00 Furosemide (Lasix) 40 mg DAILY PO 06/26/17 09:00 Gabapentin (Neurontin) 600 mg Q8H PO 06/25/17 21:45 06/26/17 00:07 Hydralazine HCl (Apresoline) 50 mg Q8HR PO 06/25/17 22:00 06/26/17 00:07 Lisinopril (Prinivil) 20 mg DAILY PO 06/26/17 09:00 Metoprolol Tartrate (Lopressor) 50 mg Q8H PO 06/25/17 21:45 06/26/17 00:06 Oxybutynin Chloride (Ditropan) 5 mg Q12HR PO 06/26/17 09:00 Pantoprazole Sodium (Protonix) 40 mg DAILY PO 06/26/17 09:00 Pravastatin Sodium (Pravachol) 40 mg DAILY PO 06/26/17 09:00 Prednisone (Deltasone) 10 mg DAILY PO 06/26/17 09:00 Sertraline HCl (Zoloft) 50 mg DAILY PO 06/26/17 09:00 Trazodone HCl (Desyrel) 150 mg HS PO 06/26/17 21:00 Acetaminophen/ Hydrocodone Bitart ([place] 5-325 Mg) 1 tab Q6H PRN PO PAIN SCALE 1 TO 10 06/25/17 23:00 06/26/17 00:09 Non-Formulary Medication 80 ml stk-med one IV 06/25/17 21:45 Sodium Chloride (NS Flush) 2 ml UNSCH PRN .XX FLUSH AFTER USING IV ACCESS 06/25/17 21:45 Sodium Chloride (NS Flush) 2 ml BID .XX 06/26/17 09:00 Acetaminophen (Tylenol) 650 mg Q6H PRN PO PAIN 1-10 AND/OR FEVER >101F 06/25/17 21:45 Ondansetron HCl (Zofran Inj) 4 mg Q6H PRN IV NAUSEA OR VOMITING 06/25/17 21:45 Zolpidem Tartrate (Ambien) 5 mg HS PRN PO INSOMNIA 06/25/17 21:45 Albuterol/ Ipratropium (Duoneb Neb) 1 ampule Q2HR NEB PRN INH WHEEZING 06/25/17 21:45 Miscellaneous Information 1 Q361D XX 06/25/17 21:45 Chlorhexidine Gluconate (Chlorhexidine 2% Cloth) 3 pack Taper DAILY@04 TOP 06/26/17 04:00 06/22/18 03:59 06/26/17 00:07 Chlorhexidine Gluconate (Chlorhexidine 2% Cloth) 3 pack UNSCH PRN TOP HYGIENIC CARE 06/25/17 21:45 Senna/Docusate Sodium (Eloisa-Colace) 1 tab BID PO 06/26/17 09:00 Magnesium Hydroxide (Milk Of Magnesia Liq) 30 ml Q12H PRN PO MILD - MODERATE CONSTIPATION 06/25/17 21:45 Sennosides (Senokot) 17.2 mg Q12H PRN PO MODERATE - SEVERE CONSTIPATION 06/25/17 21:45 Bisacodyl (Dulcolax Supp) 10 mg DAILY PRN RECTAL SEVERE CONSITIPATION 06/25/17 21:45 Lactulose (Lactulose Liq) 30 ml DAILY PRN PO SEVERE CONSITIPATION 06/25/17 21:45 Miscellaneous (Pill Splitter) 1 ea UNSCH PRN OTHER SEE LABEL COMMENTS 06/25/17 22:45 Hydralazine HCl (Apresoline Inj) 20 mg Q4H PRN IV PUSH SBP > 180, DBP > 90 06/26/17 03:15 Apixaban (Eliquis) 5 mg BID PO 06/26/17 09:00 Family History Mother had a CVA Mother and brother diabetes Social History She quit smoking in March She denies alcohol or illicit drug abuse Physical Exam Vital Signs Vital Signs Date Time Temp Pulse Resp B/P (MAP) Pulse Ox O2 Delivery O2 Flow Rate FiO2 06/25/17 21:41 72 20 147/97 (114) 99 06/25/17 20:31 98 Room Air 06/25/17 18:23 Room Air 06/25/17 18:20 71 18 136/75 (95) 97 Room Air 06/25/17 16:42 97.9 64 20 122/61 (81) 97 Room Air Physical Exam GENERAL: Cachectic sick elderly appearing female in no acute distress, somewhat lethargic and slow speech SKIN: Warm and dry. HEAD: Normocephalic. EYES: No scleral icterus. No injection or drainage. NECK: Supple, trachea midline. No JVD or lymphadenopathy. CARDIOVASCULAR: Regular rate and rhythm without murmurs, gallops, or rubs. RESPIRATORY: Breath sounds equal bilaterally. No accessory muscle use. GASTROINTESTINAL: Abdomen soft, non-tender, nondistended. MUSCULOSKELETAL: No cyanosis, or edema. BACK: Nontender without obvious deformity. NEURO EXAM: GCS: M6 V5 E4 Mental Status: The patient is alert and oriented to person, place, and time with normal speech. Cranial Nerves: Visual acuity intact bilaterally. Visual story normal in all quadrants. Pupils are round, reactive to light. Voice is normal. Tongue protrudes midline and moves symmetrically. Reflexes: Biceps, patellar, and Achilles are 2/4 bilaterally. No clonus. Sensation: Sensation is intact bilaterally to pain and light touch. Two-point discrimination is intact. Motor: Good muscle tone. Strength is 5/5 bilaterally. With some mild minimal weakness on the right upper extremity. Laboratory Laboratory Tests Test 06/25/17 20:26 White Blood Count 4.0 Red Blood Count 3.86 Hemoglobin 9.9 Hematocrit 31.2 Mean Corpuscular Volume 80.7 Mean Corpuscular Hemoglobin 25.7 Mean Corpuscular Hemoglobin Concent 31.8 Red Cell Distribution Width 22.1 Platelet Count 309 Mean Platelet Volume 7.6 Neutrophils (%) (Auto) 60.9 Lymphocytes (%) (Auto) 33.4 Monocytes (%) (Auto) 4.5 Eosinophils (%) (Auto) 0.4 Basophils (%) (Auto) 0.8 Neutrophils # (Auto) 2.4 Lymphocytes # (Auto) 1.3 Monocytes # (Auto) 0.2 Eosinophils # (Auto) 0.0 Basophils # (Auto) 0.0 CBC Comment DIFF FINAL Differential Comment Prothrombin Time 10.7 Prothromb Time International Ratio 1.0 Activated Partial Thromboplast Time 28.4 Blood Urea Nitrogen 23 Creatinine 0.44 Random Glucose 79 Total Protein 6.2 Albumin 2.3 Calcium Level 8.2 Alkaline Phosphatase 100 Aspartate Amino Transf (AST/SGOT) 31 Alanine Aminotransferase (ALT/SGPT) 32 Total Bilirubin 0.2 Sodium Level 138 Potassium Level 3.5 Chloride Level 100 Carbon Dioxide Level 29.0 Anion Gap 9 Estimat Glomerular Filtration Rate 149 Result Diagram: 06/25/17202506/25/172025 Imaging Last 24 hours Impressions Wrist X-Ray 06/25/171646 Signed Impressions: Service Date/Time: May 17:11 - CONCLUSION: 1. Soft tissue swelling with no acute fracture or malalignment. 2. Osteopenia and minimal degenerative change. Jeyson Asher MD Wrist X-Ray 06/25/171646 Signed Impressions: Service Date/Time: May 17:12 - CONCLUSION: 1. No acute fracture or malalignment. 2. Chronic changes involving the lunate bone with patchy sclerosis and lucency. 3. Mild osteoarthritic change. Jeyson Asher MD Caprini VTE Risk Assessment Caprini VTE Risk Assessment: Mod/High Risk (score >= 2) Caprini Risk Assessment Model Point Value = 1 Point Value = 2 Point Value = 3 Point Value = 5 Age 41-60 Minor surgery BMI > 25 kg/m2 Swollen legs Varicose veins or History of unexplained or recurrent spontaneous Oral contraceptives or hormone replacement Sepsis (< 1 month) Serious lung disease, including pneumonia (< 1 month) Abnormal pulmonary function Acute myocardial infarction Congestive heart failure (< 1 month) History of inflammatory bowel disease Medical patient at bed rest Age 61-74 Arthroscopic surgery Major open surgery (> 45 min) Laparoscopic surgery (> 45 min) Malignancy Confined to bed (> 72 hours) Immobilizing plaster cast Central venous access Age >= 75 History of VTE Family history of VTE Factor V Leiden Prothrombin 53729H Lupus anticoagulant Anticardiolipin antibodies Elevated serum homocysteine Heparin-induced thrombocytopenia Other congenital or acquired thrombophilia Stroke (< 1 month) Elective arthroplasty Hip, pelvis, or leg fracture Acute spinal cord injury (< 1 month) Prophylaxis Regimen Total Risk Factor Score Risk Level Prophylaxis Regimen 0-1 Low Early ambulation 2 Moderate Order ONE of the following: *Sequential Compression Device (SCD) *Heparin 5000 units SQ BID 3-4 Higher Order ONE of the following medications: *Heparin 5000 units SQ TID *Enoxaparin/Lovenox 40 mg SQ daily (WT < 150 kg, CrCl > 30 mL/min) *Enoxaparin/Lovenox 30 mg SQ daily (WT < 150 kg, CrCl > 10-29 mL/min) *Enoxaparin/Lovenox 30 mg SQ BID (WT < 150 kg, CrCl > 30 mL/min) AND/OR *Sequential Compression Device (SCD) 5 or more Highest Order ONE of the following medications: *Heparin 5000 units SQ TID (Preferred with Epidurals) *Enoxaparin/Lovenox 40 mg SQ daily (WT < 150 kg, CrCl > 30 mL/min) *Enoxaparin/Lovenox 30 mg SQ daily (WT < 150 kg, CrCl > 10-29 mL/min) *Enoxaparin/Lovenox 30 mg SQ BID (WT < 150 kg, CrCl > 30 mL/min) AND *Sequential Compression Device (SCD) Assessment and Plan Assessment and Plan CVA - MRI of brain - Management per neurology - Continue Eliquis - Continue statins - PT and OT eval and treat as tolerated Anemia - Nela sulfate Hypertension - Norvasc - Clonidine - Lisinopril - Hydralazine - Furosemide - Metoprolol Dyslipidemia - Pravastatin Systemic lupus erythematosus - Prednisone Anxiety - Alprazolam Depression - Wellbutrin - Zoloft - Trazodone Neuropathy - Gabapentin DVT GI prophylaxis - Eliquis - Heart healthy diet - Pantoprazole Critical Care: The total critical care time was 35 minutes. Time to perform other separately billable procedures was not included in the critical care time. Olivier Coles MD Jun 25, 2017 9:43 pm
[2017-06-25] MEDS ORDERED: ZOLPIDEM TARTRATE 5 MG TAB PO PRN (21:45)
[2017-06-25] MEDS ORDERED: SENNOSIDES 8.6 MG TAB PO PRN (21:45)
[2017-06-25] MEDS ORDERED: ONDANSETRON HCL 4 MG/2 ML VIAL IV PRN (21:45)
[2017-06-25] MEDS ORDERED: MAGNESIUM HYDROXIDE SUSP 30 ML CUP PO PRN (21:45)
[2017-06-25] MEDS ORDERED: LACTULOSE SYRUP 20 GM/30 ML CUP PO PRN (21:45)
[2017-06-25] MEDS ORDERED: CHLORHEXIDINE GLUCONATE 2 % 1 PACK (2 CLOTHS) TOP PRN (21:45)
[2017-06-25] MEDS ORDERED: cloNIDine HCL 0.1 MG TAB PO PRN (21:45)
[2017-06-25] MEDS ORDERED: MISCELLANEOUS NURSING INFORMATION XX SCH (21:45)
[2017-06-25] MEDS ORDERED: SODIUM CHLORIDE 0.9% FLUSH 10 ML FLUSH PRN (21:45)
[2017-06-25] MEDS ORDERED: IOHEXOL IV SCH (21:45)
[2017-06-25] MEDS ORDERED: ACETAMINOPHEN 325 MG TAB PO PRN (21:45)
[2017-06-25] MEDS ORDERED: RESP: ALBUTEROL 2.5 MG/IPRATROPIUM 0.5 MG NEB (PRN) INH (21:45)
[2017-06-25] MEDS ORDERED: BISACODYL 10 MG SUPP RECTAL PRN (21:45)
[2017-06-25] MEDS ORDERED: FERROUS SULFATE 325 MG (65 MG ELEMENTAL IRON) TAB PO SCH (22:00)
[2017-06-25] MEDS ORDERED: PILL SPLITTER OTHER PRN (22:45)
[2017-06-26] VITALS (19 sets, daily range): BP systolic 128–185; BP diastolic 69–92; PULSE 74–82; RESP 15–29; TEMP 98–99.1; O2SAT 95–98
[2017-06-26] MEDS: METOPROLOL TARTRATE 50 MG TAB PO SCH ×4 (00:06→20:45)
[2017-06-26] MEDS: CHLORHEXIDINE GLUCONATE 2 % 1 PACK (2 CLOTHS) TOP SCH (00:07)
[2017-06-26] MEDS: hydrALAZINE HCL 50 MG TAB PO SCH ×4 (00:07→20:45)
[2017-06-26] MEDS: GABAPENTIN 300 MG CAP PO SCH ×4 (00:07→20:45)
[2017-06-26] MEDS: ACETAMINOPHEN/HYDROcodone 325 MG/5 MG TAB PO PRN ×3 (00:09→15:21)
[2017-06-26] MEDS: ALPRAZolam 0.25 MG TAB PO PRN ×2 (01:26→12:34)
[2017-06-26] MEDS ORDERED: hydrALAZINE HCL 20 MG/ML VIAL IV PUSH PRN (03:15)
[2017-06-26 04:22] LABS: BASOPHIL % 0.6 % (0.0-2.0); EOSINOPHIL % 0.2 % (0.0-4.0); HEMATOCRIT 31.9 % (35.0-46.0); HEMO FLAGS DIFF FINAL; LYMPH % 22.5 % (9.0-44.0); LYMPHOCYTE # 0.9 TH/MM3 (1.0-4.8); MEAN CELL VOLUME 80.7 FL (80.0-100.0); MEAN CORPUSCULAR HEMOGLOBIN 26.5 PG (27.0-34.0); MEAN CORPUSCULAR HGB CONC 32.8 % (32.0-36.0); MONO % 3.2 % (0.0-8.0); NEUT % 73.5 % (16.0-70.0); PLATELET COUNT 294 TH/MM3 (150-450); RED BLOOD COUNT 3.96 MIL/MM3 (4.00-5.30); RED CELL DISTRIBUTION WIDTH 22.8 % (11.6-17.2); WHITE BLOOD COUNT 4.1 TH/MM3 (4.0-11.0)
[2017-06-26 04:29] LABS: PROTHROMBIN TIME - PATIENT 10.5 SEC (9.8-11.6)
[2017-06-26 04:58] LABS: ANION GAP 8 MEQ/L (5-15); AST (GOT) 35 U/L (15-37); BLOOD UREA NITROGEN 20 MG/DL (7-18); CHLORIDE 98 MEQ/L (98-107); GLOMERULAR FILTRATION RATE 111 ML/MIN (>89); MAGNESIUM 1.7 MG/DL (1.5-2.5); POTASSIUM 3.4 MEQ/L (3.5-5.1); SODIUM (NA) 137 MEQ/L (136-145)
[2017-06-26 05:02] LABS: ALKALINE PHOSPHATASE 108 U/L (45-117); ALT (GPT) 34 U/L (10-53); TOTAL BILIRUBIN ADULT 0.2 MG/DL (0.2-1.0)
[2017-06-26] MEDS: APIXABAN 2.5 MG TABLET PO SCH ×2 (08:18→20:45)
[2017-06-26] MEDS: buPROPion HCL 150 MG SUSTAINED RELEASE TAB PO SCH ×2 (08:18→20:45)
[2017-06-26] MEDS: SODIUM CHLORIDE 0.9% FLUSH 10 ML FLUSH SCH ×2 (08:18→20:51)
[2017-06-26] MEDS: LISINOPRIL 20 MG TAB PO SCH (08:18)
[2017-06-26] MEDS: CYANOCOBALAMIN 1,000 MCG TAB PO SCH (08:19)
[2017-06-26] MEDS: predniSONE 10 MG TAB PO SCH (08:19)
[2017-06-26] MEDS: DOCUSATE SODIUM 50 MG/SENNA 8.6 MG TAB PO SCH ×2 (08:19→20:46)
[2017-06-26] MEDS: PRAVASTATIN SOD 40 MG TAB PO SCH (08:19)
[2017-06-26] MEDS: PANTOPRAZOLE SOD 40 MG DELAYED RELEASE TAB PO SCH (08:19)
[2017-06-26] MEDS: SERTRALINE HCL 50 MG TAB PO SCH (08:19)
[2017-06-26] MEDS: OXYBUTYNIN CHLORIDE 5 MG TAB PO SCH ×2 (08:20→20:45)
[2017-06-26] MEDS ORDERED: MAGNESIUM SULFATE INJ 4 GM in SODIUM CHLORIDE 0.9% INJ 92 ML IV PRN (08:30)
[2017-06-26] MEDS ORDERED: MAGNESIUM SULFATE INJ 2 GM in SODIUM CHLORIDE 0.9% INJ 96 ML IV PRN (08:30)
[2017-06-26] MEDS ORDERED: POTASSIUM CHLOR 40 MEQ PREMIX 100 ML IV PRN ×2 (08:30)
[2017-06-26] MEDS ORDERED: MAGNESIUM OXIDE 400 MG TAB PO PRN (08:30)
[2017-06-26] MEDS ORDERED: POTASSIUM PHOSPHATE MONOBASIC 500 MG TAB PO/TUBE PRN (08:30)
[2017-06-26] MEDS ORDERED: SODIUM PHOSPHATE INJ 30 MMOL in SODIUM CHLOR 0.9% 250 ML INJ 240 ML IV PRN (08:30)
[2017-06-26] MEDS ORDERED: POTASSIUM CHLOR 20 MEQ PREMIX 100 ML IV PRN ×2 (08:30→10:00)
[2017-06-26] MEDS ORDERED: POTASSIUM CHLORIDE 25 MEQ EFFERVESCENT TAB PO PRN (08:30)
[2017-06-26] MEDS ORDERED: POTASSIUM PHOSPHATE INJ 30 MMOL in SODIUM CHLOR 0.9% 250 ML INJ 250 ML IV PRN (08:30)
--- NOTE | 2017-06-26 08:46 | HHI.CCPN ---
Subjective Remarks/Hospital Course 52-year-old female presenting to emergency for evaluation after a fall. She was discharged from [facility] yesterday and since she's been home she has fallen twice. Once when she fell out of her wheelchair face forward onto the ground and bumping her head last night, and then she fell out of bed this morning when she attempted to get up on her own. Patient is supposed to be using assistance with transfer to the wheelchair only and she has been attempting to get up on her own subsequent relief falling. Today she presents to the emergency department with bilateral wrist pain secondary to the fall. She is currently on Eliquis, she had a stroke in April 2017 which was the reason for the admission to the rehabilitation Center. The CT of the head revealed evolving stroke involving left middle randy. She is admitted to ICU as a stroke alert. 06/26 Patient is lying in bed in [facility]. For MRI brain today Objective Vital Signs Date Time Temp Pulse Resp B/P (MAP) Pulse Ox O2 Delivery O2 Flow Rate FiO2 06/26/17 06:30 81 17 160/76 (104) 97 06/26/17 00:00 98.0 06/25/17 20:31 Room Air Intake and Output 06/26/17 06/26/17 06/27/17 08:00 16:00 00:00 Intake Total 240 ml Balance 240 ml Result Diagram: 06/26/17 0346 06/26/17 0346 Other Results Laboratory Tests Test 06/25/17 20:26 06/25/17 20:50 06/26/17 03:46 White Blood Count 4.0 TH/MM3 4.1 TH/MM3 Red Blood Count 3.86 MIL/MM3 3.96 MIL/MM3 Hemoglobin 9.9 GM/DL 10.5 GM/DL Hematocrit 31.2 % 31.9 % Mean Corpuscular Volume 80.7 FL 80.7 FL Mean Corpuscular Hemoglobin 25.7 PG 26.5 PG Mean Corpuscular Hemoglobin Concent 31.8 % 32.8 % Red Cell Distribution Width 22.1 % 22.8 % Platelet Count 309 TH/MM3 294 TH/MM3 Mean Platelet Volume 7.6 FL 7.7 FL Neutrophils (%) (Auto) 60.9 % 73.5 % Lymphocytes (%) (Auto) 33.4 % 22.5 % Monocytes (%) (Auto) 4.5 % 3.2 % Eosinophils (%) (Auto) 0.4 % 0.2 % Basophils (%) (Auto) 0.8 % 0.6 % Neutrophils # (Auto) 2.4 TH/MM3 3.0 TH/MM3 Lymphocytes # (Auto) 1.3 TH/MM3 0.9 TH/MM3 Monocytes # (Auto) 0.2 TH/MM3 0.1 TH/MM3 Eosinophils # (Auto) 0.0 TH/MM3 0.0 TH/MM3 Basophils # (Auto) 0.0 TH/MM3 0.0 TH/MM3 CBC Comment DIFF FINAL DIFF FINAL Differential Comment Prothrombin Time 10.7 SEC 10.5 SEC Prothromb Time International Ratio 1.0 RATIO 1.0 RATIO Activated Partial Thromboplast Time 28.4 SEC Blood Urea Nitrogen 23 MG/DL 20 MG/DL Creatinine 0.44 MG/DL 0.57 MG/DL Random Glucose 79 MG/DL 109 MG/DL Total Protein 6.2 GM/DL 6.1 GM/DL Albumin 2.3 GM/DL 2.3 GM/DL Calcium Level 8.2 MG/DL 8.0 MG/DL Alkaline Phosphatase 100 U/L 108 U/L Aspartate Amino Transf (AST/SGOT) 31 U/L 35 U/L Alanine Aminotransferase (ALT/SGPT) 32 U/L 34 U/L Total Bilirubin 0.2 MG/DL 0.2 MG/DL Sodium Level 138 MEQ/L 137 MEQ/L Potassium Level 3.5 MEQ/L 3.4 MEQ/L Chloride Level 100 MEQ/L 98 MEQ/L Carbon Dioxide Level 29.0 MEQ/L 31.0 MEQ/L Anion Gap 9 MEQ/L 8 MEQ/L Estimat Glomerular Filtration Rate 149 ML/MIN 111 ML/MIN Nasal Screen MRSA (PCR) MRSA NOT DETECTED Phosphorus Level 3.1 MG/DL Magnesium Level 1.7 MG/DL Imaging Last Impressions Wrist X-Ray 06/25/17 1647 Signed Impressions: Service Date/Time: May 17:11 - CONCLUSION: 1. Soft tissue swelling with no acute fracture or malalignment. 2. Osteopenia and minimal degenerative change. Jeyson Asher MD Head CT 06/25/17 0000 Signed Impressions: Service Date/Time: May 18:36 - CONCLUSION: Suspected evolving infarct involving the medial left randy. No hemorrhage is seen. Padilla Heredia MD Cervical Spine CT 06/25/17 0000 Signed Impressions: Service Date/Time: May 18:36 - CONCLUSION: Mild degenerative changes are seen throughout the cervical spine as described above. An acute abnormality is not seen. Padilla Heredia MD Objective Remarks GENERAL: Cachectic sick elderly appearing female in no acute distress w slow speech SKIN: Warm and dry. HEAD: Normocephalic. EYES: No scleral icterus. No injection or drainage. NECK: Supple, trachea midline. No JVD or lymphadenopathy. CARDIOVASCULAR: Regular rate and rhythm without murmurs, gallops, or rubs. RESPIRATORY: Breath sounds equal bilaterally. No accessory muscle use. GASTROINTESTINAL: Abdomen soft, non-tender, nondistended. MUSCULOSKELETAL: No cyanosis, or edema. BACK: Nontender without obvious deformity. NEURO EXAM:Alert and oriented to person, place, and time with normal speech. Motor: Good muscle tone. Strength is 5/5 bilaterally. With some mild minimal weakness on the right upper extremity. A/P Assessment and Plan 1)Left sided CVA 2)HTN 3)Dyslipidemia 4)HX Lupus 5)Anxiety/Depression Neuro: Monitor neuro status and avoid sedatives, on Wellbutrin, Zoloft, Trazodone CT brain 06/25: Suspected evolving infarct involving the medial left randy. No hemorrhage is seen. For MRI of brain today, neuro is consulted- Dr. Blue Check Carotid US and 2D echo Continue Eliquis, Statins PT and OT eval and treat as tolerated Pulm: Oxygen PRN keep sat >92% On Prednisone 10mg daily CV: Monitor HR and BP keep MAP>65mmHg Norvasc 10mg daily, Lisinopril 20mg daily, Lopressor 50mg Q8 Check 2D echo : Monitor renal function, electrolytes replacement per protocol. Will need K replacement today GI: On PO diet Heme: Monitor CBC , on Nela sulfate Endo: SSI if needed for glycemic control DVT GI prophylaxis - Eliquis - Pantoprazole Will sign off and transfer care to [facility] Level 3 Gris Rothman MD Jun 26, 2017 08:46
[2017-06-26] MEDS ORDERED: POTASSIUM PHOSPHATE MONOBASIC 500 MG TAB PO PRN (09:00)
[2017-06-26] MEDS ORDERED: FUROSEMIDE 40 MG TAB PO SCH (09:00)
--- NOTE | 2017-06-26 09:08 | RADRPT ---
EXAM DATE/TIME: 06/26/2017 08:56 [place] COMPARISON: CHEST SINGLE AP, June 16, 2017, 10:32. INDICATIONS : Shortness of breath. MEDICAL HISTORY : Cardiovascular disease. Cerebrovascular disease. Hypertension. Lupus. SURGICAL HISTORY : Hysterectomy. ENCOUNTER: Initial ACUITY: 2 days PAIN SCORE: 0/10 LOCATION: Bilateral chest FINDINGS: A single view of the chest demonstrates the lungs to be symmetrically aerated without evidence of mas s, infiltrate or effusion. The cardiomediastinal contours are unremarkable. Old left humeral fractu re is noted. CONCLUSION: Negative for an acute process, improved from 06/16/17. Olaf Serrano MD FACR on June 26, 2017 at 9:06 Board Certified Radiologist. This report was verified electronically.
--- NOTE | 2017-06-26 10:38 | PD.WCN.NOT ---
Wound Consult Description: Consult for Wound Management of open wound present on admission on sacrum per Dr Coles Communicated with: SUKHI Beck Dr Recommendation: Please use only 1 ultrasorb for moisture underneath patient for incontinence ( may use 2 staggered ultrasorbs) Encourage/remind/assist patient to reposition from left to right every 2 hours and PRN for comfort. Every 3 days cleanse sacral stage IV pressure injury with Normal Saline and gauze. Cut Maxorb II in a cinnamon roll fashion and loosely insert into wound bed using a coiling method. Secure light packing of Maxorb II with a bordered gauze dressing. Date dressing. Additional Information: Patient seen in [facility] for wound to sacrum. Patient positioned herself to her right side for assessment with 2 staggered ultrasorbs and 2 draw pads stacked on top of each other noted underneath patients bottom. Foam adhesive dressing without a date/time was removed from sacrum. Yellow thick sticky exudate was noted to removed foam adhesive with residue in wound bed that was easily removed when cleansed. Wound was cleansed with NS and gauze to reveal ~80% pink tissue and ~20% fascia indicating a Stage IV pressure injury. Moist wound bed is without active drainage and without odor. Wound measured 3.8cm x 3cm x 1.4cm. Wound margins are open and periwound is noted with blanching erythema with minimal circumferential satellite lesions that were sprayed with Cavilon skin prep prior to securing Maxorb II in wound bed with a bordered gauze dressing. Dressing should remain in place for 3 days unless soiled or dislodged. Gavi Aceves [facility] Jun 26, 2017 10:38
--- NOTE | 2017-06-26 12:32 | RADRPT ---
EXAM DATE/TIME: 06/26/2017 10:29 [facility] COMPARISON: No previous studies available for comparison. INDICATIONS : Cerebrovascular accident. MEDICAL HISTORY : Hypercholesterolemia. Gastroesophageal reflux disease. Myocardial infarction. H ypertension. Ulcer. CVA. UTI. Inguinal hernia repair. Arthritis. Osteoporosis. Hepatitis C. MRSA. SURGICAL HISTORY : section. Hysterectomy. Mastectomy. Right shoulder surgery. ENCOUNTER: Initial ACUITY: 1 day PAIN SCORE: 6/10 LOCATION: Bilateral neck PEAK SYSTOLIC VELOCITIES (cm/sec): ICA/CCA RATIO: Right: 1.0 Left: 1.1 ICA: Right: 86.5 Left: 90.4 CCA: Right: 84.5 Left: 80.6 ECA: Right: 168.9 Left: 114.0 VERTEBRAL: Right: 41.3 antegrade Left: 28.7 antegrade Elevated flow velocities and ICA/CCA ratios have been found to correlate with increased degrees of vessel stenosis, calculated as percentage of diameter relative to a normal segment of distal ICA/CCA FINDINGS: RIGHT CAROTID: There is no evidence for a hemodynamically significant carotid stenosis. Minimal int imal hyperplasia is present with scattered calcific plaque. LEFT CAROTID: There is no evidence for a hemodynamically significant carotid stenosis. Minimal inti mal hyperplasia is present with scattered calcific plaque. VERTEBRAL ARTERIES: Flow is antegrade in both vertebral arteries. MISCELLANEOUS: There are no ancillary masses or adenopathy. CONCLUSION: Negative examination for a hemodynamically significant carotid stenosis. Olaf Serrano MD FACR Board Certified Radiologist. This report was verified electronically.
[2017-06-26] MEDS: FERROUS SULFATE 325 MG (65 MG ELEMENTAL IRON) TAB PO SCH ×2 (12:35→15:21)
--- NOTE | 2017-06-26 20:12 | MB ---
cc: AKIRA NOGUEIRA MD Corrected Copy: 07/08/17 DATE OF CONSULTATION 06/26/17 REASON FOR CONSULTATION Abnormal CT, possible new stroke. HISTORY OF PRESENT ILLNESS A 52-year-old woman who presented to the ER for evaluation after a fall. She was discharged from [facility] the day prior to coming back to the ER and, since she has been home, she has fallen twice. She one time feel out of her wheelchair face forward onto the ground and the other time out of bed when she attempted to get up on her own. She is supposed to be using assistance with transfers to the wheelchair and to get up on her own, subsequently she fell. She is currently on Eliquis. She had a stroke in April of 2017. CT of the head showed evolving stroke in the left middle randy. She was admitted as a stroke alert. However, looking back into her chart her last MRI would have been May 08, 2017 and showed a small acute right basal ganglionic infarct with restricted diffusion also on the left side of the randy consistent with a left pontine infarct. Question if this is an evolving infarct or this is just part of that pontine infarct that occurred. She just had a carotid ultrasound that was negative for any significant stenosis and she is pending an MRI of the brain to see if there is any extension of the stroke. PAST MEDICAL HISTORY 1. Hypertension, 2. Hyperlipidemia, 3. Lupus 4. Stroke recently in April, 5. Anxiety, depression, MEDICATIONS Please refer to MAR. Apparently she is on Eliquis. FAMILY HISTORY Stroke in the mother. Mother and brother both had diabetes. SOCIAL HISTORY She quit smoking in March. PHYSICAL EXAMINATION VITAL SIGNS: Temperature is 98, current blood pressure 160/76, satting at 97% room air, heart rate 81. NEUROLOGIC She is awake and alert, hypophonic. Her pupils are reactive. Visual story seem full. Motor lee, she has a right hemiparesis 0/5 in the right arm. She is at least a 3-4/5 on the right leg. She can feel pain and temperature on the right side, left side is intact. Gait is withheld. DTRs are brisker on the right. LABORATORY DATA Hemoglobin is 10.5. Her platelets are 294,000. Coag panel reviewed. INR is one. PT 10.5. Chemistries - potassium 3.4, BUN 20, glucose 109, calcium 8, albumin 2.3. IMAGING STUDIES CT of the head as stated in the body of the paragraph. Carotid ultrasound was negative. IMPRESSION 1. A 52 year-old woman with chronic left-sided stroke with right hemiparesis. 2. Hypertension. 3. Hyperlipidemia. 4. Lupus. RECOMMENDATION Recommend getting the MRI just to complete the workup to see if there is any new stroke. Continue the Eliquis and a statin. PT, OT I believe a 2-D echo is also in order. She may need to go back to rehabilitation so I would probably recommend after imaging a rehabilitation consultation as well. MD RORO Champion/ /2:38 PM /7:46 PM MTDD
[2017-06-26] MEDS: traZODone HCL 50 MG TAB PO SCH (20:45)
--- NOTE | 2017-06-26 21:16 | RADRPT ---
EXAM DATE/TIME: 06/26/2017 19:43 [facility] COMPARISON: MRI BRAIN W/O CONTRAST, May 12, 2017, 16:53. INDICATIONS : CVA. MEDICAL HISTORY : Lupus. Hepatitis C. Hypertension. Gastritis. ID. SURGICAL HISTORY : Hysterectomy. section. Right shoulder. Hernia repair. ENCOUNTER: Subsequent ACUITY: 1 day PAIN SCORE: 3/10 LOCATION: Cranial TECHNIQUE: Multiplanar, multisequence MRI of the brain was performed without contrast. FINDINGS: There is evolution of the previously seen medial left pontine infarct with some encepha lomalacia developing. There has also been evolution of the right basal ganglia infarct. New areas of acute infarction are not seen. The ventricles and cortical sulci have a grossly normal appearance. No extra-axial fluid collections, areas of hemorrhage or mass effect are seen. There are a few scat tered areas of increased signal seen in the peripheral cerebral white matter likely from underlying d emyelination. The pituitary has a normal appearance. CONCLUSION: 1. Evolving areas of infarction involving the left medial randy and the right basal ganglia. There is some encephalomalacia developing in the left pontine region. 2. Scattered areas of focal signal abnormality within the cerebral white matter representing demyelin ation. This is nonspecific. It could be secondary to small vessel ischemic change, vasculitis, or u nderlying demyelinating conditions. This finding was present on the prior exam and appears unchanged . Padilla Heredia MD on June 26, 2017 at 21:03 Board Certified Radiologist. This report was verified electronically.
[2017-06-27] VITALS (12 sets, daily range): BP systolic 128–182; BP diastolic 70–91; PULSE 73–93; RESP 16–26; TEMP 98–100.3; O2SAT 95–99
[2017-06-27] MEDS: METOPROLOL TARTRATE 50 MG TAB PO SCH ×3 (03:41→20:20)
[2017-06-27] MEDS: CHLORHEXIDINE GLUCONATE 2 % 1 PACK (2 CLOTHS) TOP SCH (03:41)
[2017-06-27] MEDS: ACETAMINOPHEN/HYDROcodone 325 MG/5 MG TAB PO PRN ×2 (03:41→09:41)
[2017-06-27 05:01] LABS: AUTOMATED NEUTROPHIL # 2.5 TH/MM3 (1.8-7.7); BASOPHIL % 0.4 % (0.0-2.0); EOSINOPHIL % 0.3 % (0.0-4.0); HEMATOCRIT 35.1 % (35.0-46.0); HEMO FLAGS DIFF FINAL; LYMPH % 36.7 % (9.0-44.0); LYMPHOCYTE # 1.6 TH/MM3 (1.0-4.8); MEAN CELL VOLUME 81.7 FL (80.0-100.0); MEAN CORPUSCULAR HEMOGLOBIN 25.8 PG (27.0-34.0); MEAN CORPUSCULAR HGB CONC 31.5 % (32.0-36.0); NEUT % 58.6 % (16.0-70.0); PLATELET COUNT 306 TH/MM3 (150-450); RED BLOOD COUNT 4.29 MIL/MM3 (4.00-5.30); RED CELL DISTRIBUTION WIDTH 22.6 % (11.6-17.2); WHITE BLOOD COUNT 4.3 TH/MM3 (4.0-11.0)
[2017-06-27 05:08] LABS: BICARBONATE 31.3 MEQ/L (21.0-32.0); POTASSIUM 3.8 MEQ/L (3.5-5.1)
[2017-06-27] MEDS: hydrALAZINE HCL 50 MG TAB PO SCH ×3 (06:00→20:21)
[2017-06-27] MEDS: GABAPENTIN 300 MG CAP PO SCH ×3 (06:00→20:20)
[2017-06-27] MEDS: ALPRAZolam 0.25 MG TAB PO PRN ×3 (06:00→20:19)
[2017-06-27] MEDS: DOCUSATE SODIUM 50 MG/SENNA 8.6 MG TAB PO SCH ×2 (09:00→20:21)
[2017-06-27] MEDS: OXYBUTYNIN CHLORIDE 5 MG TAB PO SCH ×2 (09:39→20:21)
[2017-06-27] MEDS: CYANOCOBALAMIN 1,000 MCG TAB PO SCH (09:40)
[2017-06-27] MEDS: SERTRALINE HCL 50 MG TAB PO SCH (09:40)
[2017-06-27] MEDS: PRAVASTATIN SOD 40 MG TAB PO SCH (09:40)
[2017-06-27] MEDS: predniSONE 10 MG TAB PO SCH (09:40)
[2017-06-27] MEDS: LISINOPRIL 20 MG TAB PO SCH (09:40)
[2017-06-27] MEDS: PANTOPRAZOLE SOD 40 MG DELAYED RELEASE TAB PO SCH (09:40)
[2017-06-27] MEDS: buPROPion HCL 150 MG SUSTAINED RELEASE TAB PO SCH ×2 (09:40→20:21)
[2017-06-27] MEDS: APIXABAN 2.5 MG TABLET PO SCH ×2 (09:41→20:21)
[2017-06-27] MEDS: SODIUM CHLORIDE 0.9% FLUSH 10 ML FLUSH SCH ×2 (09:42→20:21)
--- NOTE | 2017-06-27 11:19 | HHI.PR ---
Subjective Remarks Pt states that she has some pain in her shoulders and her lower extremities but hasn't been moving much as she is in ICU. She has no other complaints. She had a ARNOLD earlier today but that has resolved. No CP/SOB/N/V Discussed w RN, no concerns today Objective Vitals Vital Signs Date Time Temp Pulse Resp B/P (MAP) Pulse Ox O2 Delivery O2 Flow Rate FiO2 06/27/17 10:52 18 06/27/17 10:00 81 06/27/17 08:19 97 06/27/17 08:00 79 06/27/17 08:00 98.9 79 23 128/73 (91) 98 06/27/17 06:00 73 06/27/17 04:00 99.0 78 16 181/87 (118) 99 06/27/17 04:00 78 06/27/17 02:00 76 06/27/17 00:00 98.5 80 16 153/83 (106) 98 Manual Cuff/Auscultation 06/27/17 00:00 80 06/26/17 18:00 75 06/26/17 16:00 98.2 78 15 176/86 (116) 97 06/26/17 16:00 78 06/26/17 14:00 80 06/26/17 12:00 98.3 74 15 128/69 (88) 96 06/26/17 12:00 74 I/O 06/26/17 06/26/17 06/26/17 06/27/17 06/27/17 06/27/17 07:00 15:00 23:00 07:00 15:00 23:00 Intake Total 240 ml 720 ml 240 ml Balance 240 ml 720 ml 240 ml Intake Oral 240 ml 720 ml 240 ml # Voids 3 3 4 # Bowel Movements 0 Result Diagram: 06/27/17 0405 06/27/17 0405 Imaging Last Impressions Chest X-Ray 06/26/17 0000 Signed Impressions: Service Date/Time: Monday, June 26, 2017 08:56 - CONCLUSION: Negative for an acute process, improved from 06/16/17. Olaf Serrano MD FACR Carotid Artery Ultrasound 06/26/17 0000 Signed Impressions: Service Date/Time: Monday, June 26, 2017 10:29 - CONCLUSION: Negative examination for a hemodynamically significant carotid stenosis. Olaf Serrano MD Brain MRI 06/26/17 0000 Signed Impressions: Service Date/Time: Monday, June 26, 2017 19:43 - CONCLUSION: 1. Evolving areas of infarction involving the left medial randy and the right basal ganglia. There is some encephalomalacia developing in the left pontine region. 2. Scattered areas of focal signal abnormality within the cerebral white matter representing demyelination. This is nonspecific. It could be secondary to small vessel ischemic change, vasculitis, or underlying demyelinating conditions. This finding was present on the prior exam and appears unchanged. Padilla Heredia MD Wrist X-Ray 06/25/17 1647 Signed Impressions: Service Date/Time: , June 25, 2017 17:11 - CONCLUSION: 1. Soft tissue swelling with no acute fracture or malalignment. 2. Osteopenia and minimal degenerative change. Jeyson Asher MD Head CT 06/25/17 0000 Signed Impressions: Service Date/Time: , June 25, 2017 18:36 - CONCLUSION: Suspected evolving infarct involving the medial left randy. No hemorrhage is seen. Padilla Heredia MD Cervical Spine CT 06/25/17 0000 Signed Impressions: Service Date/Time: , June 25, 2017 18:36 - CONCLUSION: Mild degenerative changes are seen throughout the cervical spine as described above. An acute abnormality is not seen. Padilla Heredia MD Objective Remarks GENERAL: Cachectic sick elderly appearing female, appears comfortable. EYES: No scleral icterus. EOMI. PERRL NECK: trachea midline. CARDIOVASCULAR: Regular rate and rhythm without murmurs RESPIRATORY: Breath sounds equal bilaterally. No accessory muscle use. GASTROINTESTINAL: Abdomen soft, non-tender, nondistended. MUSCULOSKELETAL: No edema. NEURO EXAM:Alert and oriented to person, place, and time with normal speech. Motor: Good muscle tone. Strength is 4/5right upper and lower extremities but 5/ 5 on the left. sensation intact A/P Assessment and Plan 1)Left sided CVA 2)HTN 3)Dyslipidemia 4)HX Lupus 5)Anxiety/Depression Neuro: Monitor neuro status and avoid sedatives, on Wellbutrin, Zoloft, Trazodone CT brain 06/25: Suspected evolving infarct involving the medial left randy. No hemorrhage is seen. MRI of brain shows evolving infarct in left medial randy and right basal ganglia. Discussed the case w Dr. Blue, from her standpoint continue statin and blood thinners. Pt can be discharged as there are no new infarcts. Carotid u/s neg. Pt had a recent echo 05/11 showing normal EF and no valvular abnormalities therefore no need for another one from her standpoint. Continue Eliquis, Statins PT and OT eval and treat as tolerated Pulm: Oxygen PRN keep sat >92% On Prednisone 10mg daily CV: Monitor HR and BP keep MAP>65mmHg Norvasc 10mg daily, Lisinopril 20mg daily, Lopressor 50mg Q8 : Monitor renal function, electrolytes replacement per protocol. Will need K replacement today GI: On PO diet Heme: Monitor CBC , on Nela sulfate Endo: SSI if needed for glycemic control DVT GI prophylaxis - Eliquis - Pantoprazole Discharge Planning transfer to regular floor pt has been cleared by neuro for discharge. aggressive PT while in hospital Awaiting for CM to assist w d/c planning. Gabrielle Rodney MD Jun 27, 2017 11:19
[2017-06-27] MEDS: FERROUS SULFATE 325 MG (65 MG ELEMENTAL IRON) TAB PO SCH ×2 (13:14→17:24)
[2017-06-27] MEDS ORDERED: ACETAMINOPHEN/HYDROcodone 325 MG/5 MG TAB PO PRN (15:30)
[2017-06-27] MEDS: ACETAMINOPHEN/HYDROcodone 325 MG/10 MG TAB PO PRN (15:59)
--- NOTE | 2017-06-27 18:41 | ECHRPT ---
Indication: CVA/TIA CONCLUSIONS There are findings consistent with hypertrophic cardiomyopathy without obstruction. Moderate concentric left ventricular hypertrophy. EF=60% No regional wall motion abnormalities are present. Doppler parameters are consistent with impaired left ventricular relaxtion (grade 1 diastolic dysfun ction). No atrial level shunt is demonstrated by color flow Doppler interrogation. Trace mitral valve regurgitation. No mitral valve stenosis. No aortic valve regurgitation. No aortic valve stenosis. There is trace tricuspid valve regurgitation. Normal estimated pulmonary pressures. The pulmonary valve is not well visualized. The inferior vena cava is small in size. BP: 160 / 76 HR: 81 Rhythm: Sinus MEASUREMENTS (Male / Female) Normal Values Technical Quality:Fair 2D ECHO LV Diastolic Diameter PLAX 3.7 cm 4.2 - 5.9 / 3.9 - 5.3 cm LV Systolic Diameter PLAX 2.6 cm IVS Diastolic Thickness 1.5 cm 0.6 - 1.0 / 0.6 - 0.9 cm LVPW Diastolic Thickness 1.5 cm 0.6 - 1.0 / 0.6 - 0.9 cm LV Relative Wall Thickness 0.8 LVOT Diameter 1.6 cm Aortic Root Diameter 3.1 cm LA Systolic Diameter LX 1.9 cm 3.0 - 4.0 / 2.7 - 3.8 cm M-MODE AV Cusp Separation MM 2.0 cm DOPPLER AV Peak Velocity 176.0 cm/s AV Peak Gradient 12.4 mmHg AV Mean Gradient 7.0 mmHg AV Velocity Time Integral 27.9 cm LVOT Peak Velocity 140.0 cm/s LVOT Peak Gradient 7.8 mmHg LVOT Velocity Time Integral 22.4 cm LVOT Cardiac Index 2471.7 cm/minm AV Area Cont Eq vti 1.6 cm AV Area Cont Eq pk 1.6 cm Mitral E Point Velocity 92.8 cm/s Mitral A Point Velocity 110.0 cm/s Mitral E to A Ratio 0.8 LV E' Lateral Velocity 5.6 cm/s Mitral E to LV E' Lateral Ratio 16.7 LV E' Septal Velocity 5.6 cm/s Mitral E to LV E' Septal Ratio 16.7 TR Peak Velocity 240.0 cm/s TR Peak Gradient 23.0 mmHg PV Peak Velocity 75.2 cm/s PV Peak Gradient 2.3 mmHg FINDINGS LEFT VENTRICLE There are findings consistent with hypertrophic cardiomyopathy without obstruction. Moderate concentric left ventricular hypertrophy. The left ventricular systolic function is normal with an estimated ejection fraction in the range of 60-65%. No regional wall motion abnormalities are present. Doppler parameters are consistent with impaired left ventricular relaxtion (grade 1 diastolic dysfun ction). RIGHT VENTRICLE Normal right ventricular size and systolic function. LEFT ATRIUM The left atrial size is normal. RIGHT ATRIUM The right atrial size is normal. ATRIAL SEPTUM No atrial level shunt is demonstrated by color flow Doppler interrogation. AORTA The aortic root and proximal ascending aorta are normal in size on limited imaging. MITRAL VALVE Structurally normal mitral valve. Trace mitral valve regurgitation. No mitral valve stenosis. AORTIC VALVE Trileaflet aortic valve. No aortic valve regurgitation. No aortic valve stenosis. TRICUSPID VALVE Structurally normal tricuspid valve. There is trace tricuspid valve regurgitation. Normal estimated pulmonary pressures. PULMONARY VALVE The pulmonary valve is not well visualized. VESSELS The inferior vena cava is small in size. PERICARDIUM No pericardial effusion. Raghu Silva MD, FACC, FSCAI (Electronically Signed) Final Date:27 June 2017 18:40
[2017-06-27] MEDS: traZODone HCL 50 MG TAB PO SCH (20:20)
[2017-06-28] VITALS (9 sets, daily range): BP systolic 135–181; BP diastolic 69–90; PULSE 58–90; RESP 16–20; TEMP 97.4–98.9; O2SAT 94–99
[2017-06-28] MEDS: CHLORHEXIDINE GLUCONATE 2 % 1 PACK (2 CLOTHS) TOP SCH (04:00)
[2017-06-28] MEDS: METOPROLOL TARTRATE 50 MG TAB PO SCH ×3 (04:55→20:58)
[2017-06-28] MEDS: ACETAMINOPHEN/HYDROcodone 325 MG/10 MG TAB PO PRN ×3 (04:55→17:04)
[2017-06-28] MEDS: GABAPENTIN 300 MG CAP PO SCH ×3 (04:55→20:58)
[2017-06-28] MEDS: hydrALAZINE HCL 50 MG TAB PO SCH ×3 (04:55→20:58)
[2017-06-28] MEDS: OXYBUTYNIN CHLORIDE 5 MG TAB PO SCH ×2 (09:07→20:58)
[2017-06-28] MEDS: DOCUSATE SODIUM 50 MG/SENNA 8.6 MG TAB PO SCH ×2 (09:07→20:58)
[2017-06-28] MEDS: CYANOCOBALAMIN 1,000 MCG TAB PO SCH (09:07)
[2017-06-28] MEDS: LISINOPRIL 20 MG TAB PO SCH ×2 (09:07→20:59)
[2017-06-28] MEDS: SERTRALINE HCL 50 MG TAB PO SCH (09:07)
[2017-06-28] MEDS: buPROPion HCL 150 MG SUSTAINED RELEASE TAB PO SCH ×2 (09:07→20:59)
[2017-06-28] MEDS: SODIUM CHLORIDE 0.9% FLUSH 10 ML FLUSH SCH ×2 (09:07→20:59)
[2017-06-28] MEDS: APIXABAN 2.5 MG TABLET PO SCH ×2 (09:08→20:58)
[2017-06-28] MEDS: PRAVASTATIN SOD 40 MG TAB PO SCH (09:08)
[2017-06-28] MEDS: predniSONE 10 MG TAB PO SCH (09:08)
[2017-06-28] MEDS: PANTOPRAZOLE SOD 40 MG DELAYED RELEASE TAB PO SCH (09:08)
[2017-06-28] MEDS: ALPRAZolam 0.25 MG TAB PO PRN ×2 (09:49→20:58)
[2017-06-28] MEDS: FERROUS SULFATE 325 MG (65 MG ELEMENTAL IRON) TAB PO SCH ×2 (11:06→17:03)
[2017-06-28] MEDS ORDERED: NITROGLYCERIN 2% OINT 1 GM PACKET TOPICAL PRN (12:45)
[2017-06-28] MEDS ORDERED: MORPHINE SULFATE 4 MG/ML INJ IV PUSH PRN (12:45)
[2017-06-28] MEDS ORDERED: ASPIRIN 325 MG TAB PO ONE (13:00)
--- NOTE | 2017-06-28 14:12 | HHI.PR ---
Subjective Remarks Follow up visit on patient with HTN, CVA. Patient seen and examined today. Patient with complaints of chest pain earlier today. Patient reports midsternal chest pressure with radiation into throat and both sides of jaw. She denies any associated nausea and vomiting. Given 325mg ASA. CP now resolved. Patient denies any difficulty swallowing or shortness of breath. Objective Vitals Vital Signs Date Time Temp Pulse Resp B/P (MAP) Pulse Ox O2 Delivery O2 Flow Rate FiO2 06/28/17 09:31 94 06/28/17 08:00 98.6 88 18 165/82 (109) 94 06/28/17 04:54 97.4 76 20 181/90 (120) 99 06/28/17 00:00 98.4 79 18 141/78 (99) 97 06/27/17 19:00 98.0 93 18 182/84 (116) 95 06/27/17 18:26 99.0 89 17 170/82 (111) 97 06/27/17 16:59 16 06/27/17 16:00 100.3 06/27/17 16:00 88 06/27/17 16:00 100.3 88 26 129/91 (104) 96 06/27/17 14:15 16 06/27/17 14:00 87 I/O 06/27/17 06/27/17 06/27/17 06/28/17 06/28/17 06/28/17 07:00 15:00 23:00 07:00 15:00 23:00 Intake Total 240 ml 450 ml Balance 240 ml 450 ml Intake Oral 240 ml 450 ml # Voids 4 2 2 # Bowel Movements 0 Result Diagram: 06/27/17 0405 06/27/17 0405 Imaging Last Impressions Chest X-Ray 06/26/17 0000 Signed Impressions: Service Date/Time: Monday, June 26, 2017 08:56 - CONCLUSION: Negative for an acute process, improved from 06/16/17. Olaf Serrano MD FACR Carotid Artery Ultrasound 06/26/17 0000 Signed Impressions: Service Date/Time: Monday, June 26, 2017 10:29 - CONCLUSION: Negative examination for a hemodynamically significant carotid stenosis. Olaf Serrano MD Brain MRI 06/26/17 0000 Signed Impressions: Service Date/Time: Monday, June 26, 2017 19:43 - CONCLUSION: 1. Evolving areas of infarction involving the left medial randy and the right basal ganglia. There is some encephalomalacia developing in the left pontine region. 2. Scattered areas of focal signal abnormality within the cerebral white matter representing demyelination. This is nonspecific. It could be secondary to small vessel ischemic change, vasculitis, or underlying demyelinating conditions. This finding was present on the prior exam and appears unchanged. Padilla Heredia MD Wrist X-Ray 06/25/17 1647 Signed Impressions: Service Date/Time: May 17:11 - CONCLUSION: 1. Soft tissue swelling with no acute fracture or malalignment. 2. Osteopenia and minimal degenerative change. Jeyson Asher MD Head CT 06/25/17 0000 Signed Impressions: Service Date/Time: , June 25, 2017 18:36 - CONCLUSION: Suspected evolving infarct involving the medial left randy. No hemorrhage is seen. Padilla Heredia MD Cervical Spine CT 06/25/17 0000 Signed Impressions: Service Date/Time: , June 25, 2017 18:36 - CONCLUSION: Mild degenerative changes are seen throughout the cervical spine as described above. An acute abnormality is not seen. Padilla Heredia MD Objective Remarks GENERAL: Cachectic sick elderly appearing female, who appears much older than stated age. Awake and alert. Appears comfortable. SKIN: Warm and dry. No rash noted. HEAD: NC/AT EYES: No scleral icterus. EOMI. NECK: trachea midline. CARDIOVASCULAR: Regular rate and rhythm without murmurs RESPIRATORY: Breath sounds equal bilaterally. No accessory muscle use. GASTROINTESTINAL: Abdomen soft, non-tender, nondistended. MUSCULOSKELETAL: No edema. NEURO:Awake and alert. Good muscle tone. Strength is 4/5 right upper and lower extremities but 5/5 on the left. Sensation intact. Normal speech. Medications and IVs Current Medications Medications (Trade) Dose Ordered Sig/[place] Route Start Time Stop Time Status Last Admin (NS Flush) 2 ml UNSCH PRN IVF 06/25/17 20:30 (Xanax) 0.125 mg Q4H PRN PO 06/25/17 21:45 06/28/17 09:49 (Norvasc) 10 mg DAILY PO 06/26/17 09:00 06/28/17 09:07 (Wellbutrin Sr) 150 mg BID PO 06/26/17 09:00 06/28/17 09:07 (Catapres) 0.1 mg Q6H PRN PO 06/25/17 21:45 06/26/17 01:37 (Vitamin B12) 1,000 mcg DAILY PO 06/26/17 09:00 06/28/17 09:07 (Ferrous Sulfate) 325 mg BID@ PO 06/26/17 12:00 06/28/17 11:06 (Neurontin) 600 mg Q8H PO 06/25/17 21:45 06/28/17 13:09 (Apresoline) 50 mg Q8HR PO 06/25/17 22:00 06/28/17 13:09 (Prinivil) 20 mg DAILY PO 06/26/17 09:00 06/28/17 09:07 (Lopressor) 50 mg Q8H PO 06/25/17 21:45 06/28/17 13:09 (Ditropan) 5 mg Q12HR PO 06/26/17 09:00 06/28/17 09:07 (Protonix) 40 mg DAILY PO 06/26/17 09:00 06/28/17 09:08 (Pravachol) 40 mg DAILY PO 06/26/17 09:00 06/28/17 09:08 (Deltasone) 10 mg DAILY PO 06/26/17 09:00 06/28/17 09:08 (Zoloft) 50 mg DAILY PO 06/26/17 09:00 06/28/17 09:07 (Desyrel) 150 mg HS PO 06/26/17 21:00 06/27/17 20:20 Non-Formulary Medication 80 ml stk-med one IV 06/25/17 21:45 (NS Flush) 2 ml UNSCH PRN .XX 06/25/17 21:45 (NS Flush) 2 ml BID .XX 06/26/17 09:00 06/28/17 09:07 (Tylenol) 650 mg Q6H PRN PO 06/25/17 21:45 06/27/17 13:15 (Zofran Inj) 4 mg Q6H PRN IV 06/25/17 21:45 (Ambien) 5 mg HS PRN PO 06/25/17 21:45 (Duoneb Neb) 1 ampule Q2HR NEB PRN INH 06/25/17 21:45 Miscellaneous Information 1 Q361D XX 06/25/17 21:45 (Chlorhexidine 2% Cloth) 3 pack Taper DAILY@04 TOP 06/26/17 04:00 06/22/18 03:59 06/27/17 03:41 (Chlorhexidine 2% Cloth) 3 pack UNSCH PRN TOP 06/25/17 21:45 (Eloisa-Colace) 1 tab BID PO 06/26/17 09:00 06/28/17 09:07 (Milk Of Magnesia Liq) 30 ml Q12H PRN PO 06/25/17 21:45 (Senokot) 17.2 mg Q12H PRN PO 06/25/17 21:45 (Dulcolax Supp) 10 mg DAILY PRN RECTAL 06/25/17 21:45 (Lactulose Liq) 30 ml DAILY PRN PO 06/25/17 21:45 (Pill Splitter) 1 ea UNSCH PRN OTHER 06/25/17 22:45 (Apresoline Inj) 20 mg Q4H PRN IV PUSH 06/26/17 03:15 (Eliquis) 5 mg BID PO 06/26/17 09:00 06/28/17 09:08 ([place] 5-325 Mg) 1 tab Q4H PRN PO 06/27/17 15:30 06/27/17 22:15 ([place] 10-325 Mg) 1 tab Q6H PRN PO 06/27/17 15:30 06/28/17 11:06 (Morphine Inj) 1 mg Q3H PRN IV PUSH 06/28/17 12:45 (Nitroglycerin 2% Oint) 0.5 inch Q6HR PRN TOPICAL 06/28/17 12:45 A/P Assessment and Plan 1)Left sided CVA 2)HTN 3)Dyslipidemia 4)HX Lupus 5)Anxiety/Depression 6)Chest pain Neuro: Monitor neuro status and avoid sedatives, on Wellbutrin, Zoloft, Trazodone CT brain 06/25: Suspected evolving infarct involving the medial left randy. No hemorrhage is seen. MRI of brain shows evolving infarct in left medial randy and right basal ganglia. Discussed the case w Dr. Blue, from her standpoint continue statin and blood thinners. Pt can be discharged as there are no new infarcts. Carotid u/s neg. Pt had a recent echo 05/11 showing normal EF and no valvular abnormalities therefore no need for another one from her standpoint. Continue Eliquis, Statins PT and OT eval and treat as tolerated. Continue participation. Pulm: Oxygen PRN keep sat >92% On Prednisone 10mg daily CV: C/O chest pain with radiation to throat and jaw. Given 325mg ASA. Resolved EKG personally interpreted and no e/o ischemic changes Initial troponin pending. Cycle cardiac enzymes Morphine and Nitro paste prn chest pain Cardiology consult BP elevated. Increase Lisinopril to 20mg BID. Continue Norvasc 10mg daily and Lopressor 50mg q8h ECHO shows findings consistent with hypertrophic cardiomyopathy, moderate concentric left ventricular hypertrophy, EF 60% and grade 1 diastolic dysfunction Monitor HR and BP keep MAP>65mmHg : Monitor renal function, electrolytes replacement per protocol. GI: On PO diet Heme: Monitor CBC , on Nela sulfate Endo: SSI if needed for glycemic control DVT GI prophylaxis - Eliquis - Pantoprazole Discharge Planning pt has been cleared by neuro for discharge. aggressive PT while in hospital Awaiting for CM to assist w d/c planning - patient agrees to SNF. Spouse to assist with choice. Attending Statement The exam, history, and the medical decision-making described in the above note were completed with the assistance of the mid-level provider. I reviewed and agree with the findings presented. I attest that I had a [id number] encounter with the patient on the same day, and personally performed and documented my assessment and findings in the medical record. Team was paged around noon because pt was having midsternal chest pains w radiation to jaw. We evaluated the patient and at that time pain had resolved on its own however per pt she was having chest pains since 10am. She described the pain as dull, pressure like. She denied any nausea or vomiting, denied any lightheadedness or dizziness on exam HR rrr w no murmurs, lungs were clear, abdomen soft NT no guarding or rebound. she moved her extremities but has 4/5 weakness on the right side. initial trop was neg. will continue to trend and EKG reviewed didn't show ischemic changes. pt was started on ASA, morphine prn, nitropaste. cards consult was placed. pt has been cleared from a neuro standpoint. if cardiac work-up neg and cards clears pt will d/c to SNF Angie Christopher Jun 28, 2017 14:12 Gabrielle Rodney MD Jun 28, 2017 16:11
--- NOTE | 2017-06-28 17:18 | MB ---
cc: MARIA TERESA DESAI M.D. DATE OF CONSULTATION: 06/28/2017. REASON FOR CONSULTATION: Chest pain. HISTORY OF PRESENT ILLNESS: Mrs. Fam is a 52-year-old female with history of chronic smoker who was admitted on May 08 due to a CVA She has right hemiplegia. She was sent to rehab. Subsequently she was discharged home. She was readmitted June 25 due to fall. She is on anticoagulation. She was previously evaluated by a neurologist. She developed chest pain that radiated to the neck. Carotid Doppler was negative. I was consulted for evaluation and management. The chart was reviewed. The patient was evaluated. ALLERGIES: 1. INFLUENZA. 2. SULFAMETHOXAZOLE. 3. TRIMETHOPRIM. FAMILY HISTORY: Noncontributory to her current medical condition. MEDICATIONS: Currently she is on: 1. Magnesium. 2. Potassium. 3. Acetaminophen. 4. Xanax. 5. Norvasc 10 milligrams a day. 6. Eliquis 5 milligrams twice a day. 7. Aspirin. 8. Wellbutrin. 9. Catapres PRN. 10. Neurontin 600 milligrams q. 8 hours. 11. Ferrous sulfate. 12. Hydralazine. 13. Metoprolol. 14. Trazodone. REVIEW OF SYSTEMS: She refers no chest pain and no chest discomfort. Earlier she was having chest pain that radiated to the left jaw but no fever. PHYSICAL EXAMINATION: GENERAL: Alert, fully oriented. VITAL SIGNS: Her blood pressure is still high at 152/75, pulse 90, respiratory rate 18. LUNGS: Ventilated. CARDIOVASCULAR: S1-S2. No gallop. No murmur. ABDOMEN: Abdomen soft, no mass. No bruits. EXTREMITIES: No edema. NEUROLOGIC: There is right side weakness. EKGS: Electrocardiogram shows sinus rhythm. No acute S-T and T wave changes. LABORATORY DATA: Hemoglobin 11.1, white blood cell count 4.3. Potassium 3.8, creatinine 0.43. Troponin is 0.02. ASSESSMENT AND RECOMMENDATIONS: Mrs. Fam has multiple risk factors. She has had a stroke. She has high blood pressure. Also she has a history of chronic smoker. She referred chest pain. There are no acute S-T and T-wave changes. Troponin negative. I am going to request a nuclear stress study. Based on the results, further decision will be taken. The case was extensively discussed with the patient and her . MD COLLEEN Bajwa/JOSÉ MIGUEL /4:08 PM /5:08 PM
[2017-06-28] MEDS: traZODone HCL 50 MG TAB PO SCH (20:57)
[2017-06-28 21:49] LABS: CREATINE KINASE 28 U/L (26-192)
[2017-06-29 00:30] VITALS: BP 148/75; PULSE 83; RESP 16; TEMP 99; O2SAT 99
[2017-06-29] MEDS: CHLORHEXIDINE GLUCONATE 2 % 1 PACK (2 CLOTHS) TOP SCH (04:00)
[2017-06-29 04:44] VITALS: BP 174/81; PULSE 83; RESP 16; TEMP 99.1; O2SAT 99
[2017-06-29] MEDS: METOPROLOL TARTRATE 50 MG TAB PO SCH ×3 (06:08→21:20)
[2017-06-29] MEDS: GABAPENTIN 300 MG CAP PO SCH ×3 (06:08→21:19)
[2017-06-29] MEDS: hydrALAZINE HCL 50 MG TAB PO SCH ×3 (06:08→21:22)
[2017-06-29] MEDS: ACETAMINOPHEN/HYDROcodone 325 MG/10 MG TAB PO PRN ×3 (06:18→21:20)
[2017-06-29] MEDS: APIXABAN 2.5 MG TABLET PO SCH ×2 (08:02→21:18)
[2017-06-29] MEDS: PANTOPRAZOLE SOD 40 MG DELAYED RELEASE TAB PO SCH (08:02)
[2017-06-29] MEDS: PRAVASTATIN SOD 40 MG TAB PO SCH (08:03)
[2017-06-29] MEDS: CYANOCOBALAMIN 1,000 MCG TAB PO SCH (08:03)
[2017-06-29] MEDS: LISINOPRIL 20 MG TAB PO SCH ×2 (08:03→21:20)
[2017-06-29] MEDS: SODIUM CHLORIDE 0.9% FLUSH 10 ML FLUSH SCH ×2 (08:03→21:22)
[2017-06-29] MEDS: buPROPion HCL 150 MG SUSTAINED RELEASE TAB PO SCH ×2 (08:03→21:20)
[2017-06-29] MEDS: OXYBUTYNIN CHLORIDE 5 MG TAB PO SCH ×2 (08:03→21:20)
[2017-06-29] MEDS: SERTRALINE HCL 50 MG TAB PO SCH (08:03)
[2017-06-29] MEDS: predniSONE 10 MG TAB PO SCH (08:03)
[2017-06-29] MEDS: DOCUSATE SODIUM 50 MG/SENNA 8.6 MG TAB PO SCH ×2 (08:04→21:21)
[2017-06-29 08:24] VITALS: BP 143/72; PULSE 82; RESP 18; TEMP 99; O2SAT 96
[2017-06-29] MEDS: FERROUS SULFATE 325 MG (65 MG ELEMENTAL IRON) TAB PO SCH ×2 (11:11→16:40)
--- NOTE | 2017-06-29 11:37 | HHI.PR ---
Subjective Remarks Follow up visit on patient with HTN, CVA. Patient seen and examined today. Patient reports no recurrence of chest pain. States she woke up this morning stiff all over but this has improved. She denies any other complaints. No fever or chills. No shortness of breath. No N/V or abdominal pain. Objective Vitals Vital Signs Date Time Temp Pulse Resp B/P (MAP) Pulse Ox O2 Delivery O2 Flow Rate FiO2 06/29/17 08:24 99.0 82 18 143/72 (95) 96 06/29/17 04:44 99.1 83 16 174/81 (112) 99 06/29/17 00:30 99.0 83 16 148/75 (99) 99 06/28/17 20:30 98.9 86 17 161/74 (103) 97 06/28/17 18:10 98 06/28/17 16:00 98.4 78 18 135/69 (91) 98 06/28/17 12:00 98.7 90 16 153/75 (101) 95 I/O 06/28/17 06/28/17 06/28/17 06/29/17 06/29/17 06/29/17 07:00 15:00 23:00 07:00 15:00 23:00 Intake Total 240 ml Balance 240 ml Intake Oral 240 ml # Voids 2 5 1 # Bowel Movements 1 Result Diagram: 06/27/17 0405 06/27/17 0405 Imaging Last Impressions Chest X-Ray 06/26/17 0000 Signed Impressions: Service Date/Time: Monday, June 26, 2017 08:56 - CONCLUSION: Negative for an acute process, improved from 06/16/17. Olaf Serrano MD FACR Carotid Artery Ultrasound 06/26/17 0000 Signed Impressions: Service Date/Time: Monday, June 26, 2017 10:29 - CONCLUSION: Negative examination for a hemodynamically significant carotid stenosis. Olaf Serrano MD Brain MRI 06/26/17 0000 Signed Impressions: Service Date/Time: Monday, June 26, 2017 19:43 - CONCLUSION: 1. Evolving areas of infarction involving the left medial randy and the right basal ganglia. There is some encephalomalacia developing in the left pontine region. 2. Scattered areas of focal signal abnormality within the cerebral white matter representing demyelination. This is nonspecific. It could be secondary to small vessel ischemic change, vasculitis, or underlying demyelinating conditions. This finding was present on the prior exam and appears unchanged. Padilla Heredia MD Wrist X-Ray 06/25/17 1647 Signed Impressions: Service Date/Time: May 17:11 - CONCLUSION: 1. Soft tissue swelling with no acute fracture or malalignment. 2. Osteopenia and minimal degenerative change. Jeyson Asher MD Head CT 06/25/17 0000 Signed Impressions: Service Date/Time: , June 25, 2017 18:36 - CONCLUSION: Suspected evolving infarct involving the medial left randy. No hemorrhage is seen. Padilla Heredia MD Cervical Spine CT 06/25/17 0000 Signed Impressions: Service Date/Time: , June 25, 2017 18:36 - CONCLUSION: Mild degenerative changes are seen throughout the cervical spine as described above. An acute abnormality is not seen. Padilla Heredia MD Objective Remarks GENERAL: Cachectic sick elderly appearing female, who appears much older than stated age. Awake and alert. Appears comfortable. Sitting up in bedside recliner. SKIN: Warm and dry. No rash noted. HEAD: NC/AT EYES: No scleral icterus. EOMI. NECK: trachea midline. CARDIOVASCULAR: Regular rate and rhythm without murmurs RESPIRATORY: Breath sounds equal bilaterally. No accessory muscle use. GASTROINTESTINAL: Abdomen soft, non-tender, nondistended. MUSCULOSKELETAL: No edema. NEURO:Awake and alert. Good muscle tone. Weak RUE 4/5. Sensation intact. Normal speech. Medications and IVs Current Medications Medications (Trade) Dose Ordered Sig/[place] Route Start Time Stop Time Status Last Admin (NS Flush) 2 ml UNSCH PRN IVF 06/25/17 20:30 (Xanax) 0.125 mg Q4H PRN PO 06/25/17 21:45 06/28/17 20:58 (Norvasc) 10 mg DAILY PO 06/26/17 09:00 06/29/17 08:02 (Wellbutrin Sr) 150 mg BID PO 06/26/17 09:00 06/29/17 08:03 (Catapres) 0.1 mg Q6H PRN PO 06/25/17 21:45 06/26/17 01:37 (Vitamin B12) 1,000 mcg DAILY PO 06/26/17 09:00 06/29/17 08:03 (Ferrous Sulfate) 325 mg BID@ PO 06/26/17 12:00 06/28/17 17:03 (Neurontin) 600 mg Q8H PO 06/25/17 21:45 06/29/17 06:08 (Apresoline) 50 mg Q8HR PO 06/25/17 22:00 06/29/17 06:08 (Lopressor) 50 mg Q8H PO 06/25/17 21:45 06/29/17 06:08 (Ditropan) 5 mg Q12HR PO 06/26/17 09:00 06/29/17 08:03 (Protonix) 40 mg DAILY PO 06/26/17 09:00 06/29/17 08:02 (Pravachol) 40 mg DAILY PO 06/26/17 09:00 06/29/17 08:03 (Deltasone) 10 mg DAILY PO 06/26/17 09:00 06/29/17 08:03 (Zoloft) 50 mg DAILY PO 06/26/17 09:00 06/29/17 08:03 (Desyrel) 150 mg HS PO 06/26/17 21:00 06/28/17 20:57 Non-Formulary Medication 80 ml stk-med one IV 06/25/17 21:45 (NS Flush) 2 ml UNSCH PRN .XX 06/25/17 21:45 (NS Flush) 2 ml BID .XX 06/26/17 09:00 06/29/17 08:03 (Tylenol) 650 mg Q6H PRN PO 06/25/17 21:45 06/27/17 13:15 (Zofran Inj) 4 mg Q6H PRN IV 06/25/17 21:45 (Ambien) 5 mg HS PRN PO 06/25/17 21:45 (Duoneb Neb) 1 ampule Q2HR NEB PRN INH 06/25/17 21:45 Miscellaneous Information 1 Q361D XX 06/25/17 21:45 (Chlorhexidine 2% Cloth) 3 pack Taper DAILY@04 TOP 06/26/17 04:00 06/22/18 03:59 06/27/17 03:41 (Chlorhexidine 2% Cloth) 3 pack UNSCH PRN TOP 06/25/17 21:45 (Eloisa-Colace) 1 tab BID PO 06/26/17 09:00 06/28/17 20:58 (Milk Of Magnesia Liq) 30 ml Q12H PRN PO 06/25/17 21:45 (Senokot) 17.2 mg Q12H PRN PO 06/25/17 21:45 (Dulcolax Supp) 10 mg DAILY PRN RECTAL 06/25/17 21:45 (Lactulose Liq) 30 ml DAILY PRN PO 06/25/17 21:45 (Pill Splitter) 1 ea UNSCH PRN OTHER 06/25/17 22:45 (Apresoline Inj) 20 mg Q4H PRN IV PUSH 06/26/17 03:15 (Eliquis) 5 mg BID PO 06/26/17 09:00 06/29/17 08:02 ([place] 5-325 Mg) 1 tab Q4H PRN PO 06/27/17 15:30 06/27/17 22:15 ([place] 10-325 Mg) 1 tab Q6H PRN PO 06/27/17 15:30 06/29/17 06:18 (Morphine Inj) 1 mg Q3H PRN IV PUSH 06/28/17 12:45 (Nitroglycerin 2% Oint) 0.5 inch Q6HR PRN TOPICAL 06/28/17 12:45 (Prinivil) 20 mg BID PO 06/28/17 21:00 06/29/17 08:03 A/P Assessment and Plan 1)Left sided CVA 2)HTN 3)Dyslipidemia 4)HX Lupus 5)Anxiety/Depression 6)Chest pain Neuro: Monitor neuro status and avoid sedatives, on Wellbutrin, Zoloft, Trazodone CT brain 06/25: Suspected evolving infarct involving the medial left randy. No hemorrhage is seen. MRI of brain shows evolving infarct in left medial randy and right basal ganglia. Discussed the case w Dr. Blue, from her standpoint continue statin and blood thinners. Pt can be discharged as there are no new infarcts. Carotid u/s neg. Pt had a recent echo 05/11 showing normal EF and no valvular abnormalities therefore no need for another one from her standpoint. Continue Eliquis, Statins PT and OT eval and treat as tolerated. Continue participation. Pulm: Oxygen PRN keep sat >92% On Prednisone 10mg daily - begin taper CV: C/O chest pain with radiation to throat and jaw. Given 325mg ASA. now ASA 81mg po daily. CP Resolved. No recurrence. EKG personally interpreted and no e/o ischemic changes Troponin negative x 3 Morphine and Nitro paste prn chest pain Cardiology consulted, appreciate their assistance. Plan for nuclear stress test today. BP improved with increase in Lisinopril to 20mg BID. Continue Norvasc 10mg daily and Lopressor 50mg q8h ECHO shows findings consistent with hypertrophic cardiomyopathy, moderate concentric left ventricular hypertrophy, EF 60% and grade 1 diastolic dysfunction Monitor HR and BP keep MAP>65mmHg : Monitor renal function, electrolytes replacement per protocol. GI: On PO diet Heme: Monitor CBC , on Nela sulfate Endo: SSI if needed for glycemic control DVT GI prophylaxis - Eliquis - Pantoprazole Discussed with patient, nursing and Dr. Rodney Discharge Planning pt has been cleared by neuro for discharge. aggressive PT while in hospital Awaiting for CM to assist w d/c planning - patient agrees to SNF. Pt going for nuclear stress test today Attending Statement The exam, history, and the medical decision-making described in the above note were completed with the assistance of the mid-level provider. I reviewed and agree with the findings presented. I attest that I had a [id number] encounter with the patient on the same day, and personally performed and documented my assessment and findings in the medical record. Pt denies any CP this morning. Woke up stiff but has been doing exercises. No other complaints. on exam, sitting on recliner was on the phone w . HR rrr, lungs are clear , abdomen soft. 4/5 strength on the right upper and lower extremities. 5/5 on the left. Cards evaluated the pt, CE neg x 3. She is going down for nuclear stress test today. Awaiting final recs from cards. From neuro standpoint pt can be discharged, CM assisting w d/c planning as she might have already used all her days at [place]. Angie Christopher Jun 29, 2017 11:37 Gabrielle Rodney MD Jun 29, 2017 11:52
[2017-06-29 12:28] VITALS: BP 151/77; PULSE 78; RESP 18; TEMP 98.6; O2SAT 93
[2017-06-29] MEDS ORDERED: REGADENOSON INJ 0.4 MG/5 ML SYR ONE (12:41)
--- NOTE | 2017-06-29 13:53 | RADRPT ---
EXAM DATE/TIME: 06/29/2017 12:09 [facility] COMPARISON: MYOCARDIAL PERF PHARM SPECT, GATED W/EF, May 05, 2016, 12:43. INDICATIONS : Chest pain radiating to shoulder with dyspnea. Angina. DOSE: 25.9 mCi Tc99m Myoview at stress. 8.5 mCi Tc99m Myoview at rest. 0.4 mg Lexiscan STRESS SYMPTOMS: None. EJECTION FRACTION: 68% MEDICAL HISTORY : Hepatitis C. Hypertension. Gastroesophageal reflux disease. SURGICAL HISTORY : Hysterectomy. section. Inguinal hernia repair. ENCOUNTER: Initial ACUITY: 2 days PAIN SCALE: 3/10 LOCATION: Substernal chest TECHNIQUE: The patient underwent pharmacologic stress with infusion of prescribed dose. Continuous ECG tracing was monitored during stress. Gated SPECT imaging was performed after stress and conventional SPECT i maging was performed at rest. The examination was performed on a SPECT/CT scanner, both attenuation and non-corrected datasets were reviewed. FINDINGS: DISTRIBUTION: The maximum perfused segment at stress is in the anterior lateral wall. PERFUSION STUDY: The pattern of perfusion at stress is within normal limits. GATED STUDY: There is intact wall motion and thickening without hypokinetic or dyskinetic segments. CONCLUSION: Negative for stress-induced ischemia.. RISK CATEGORY: Low (<1% Annual Mortality Rate) Olaf Serrano MD FACR on June 29, 2017 at 13:50 Board Certified Radiologist. This report was verified electronically.
[2017-06-29 16:03] VITALS: BP 142/74; PULSE 77; RESP 18; TEMP 98.3; O2SAT 98
--- NOTE | 2017-06-29 16:25 | HHI.PR ---
Subjective Remarks No chest pain Feeling better Objective Vital Signs Date Time Temp Pulse Resp B/P (MAP) Pulse Ox O2 Delivery O2 Flow Rate FiO2 06/29/17 16:03 98.3 77 18 142/74 (96) 98 06/29/17 12:28 98.6 78 18 151/77 (101) 93 06/29/17 08:24 99.0 82 18 143/72 (95) 96 06/29/17 04:44 99.1 83 16 174/81 (112) 99 06/29/17 00:30 99.0 83 16 148/75 (99) 99 06/28/17 20:30 98.9 86 17 161/74 (103) 97 06/28/17 18:10 98 I/O 06/28/17 06/28/17 06/28/17 06/29/17 06/29/17 06/29/17 07:00 15:00 23:00 07:00 15:00 23:00 Intake Total 240 ml Balance 240 ml Intake Oral 240 ml # Voids 2 5 4 # Bowel Movements 3 Result Diagram: 06/27/175 06/27/17404 Imaging Alert, fully oriented Lungs: ventilated Heart: S1, S2 regular, no gallop Abdomen: soft, no mass Ext: no edema Right sided weakness Last Impressions Myocardial Perfusion Scan Nuc Med 06/29/17 Signed Impressions: Service Date/Time: Thursday, June 29, 2017 12:09 - CONCLUSION: Negative for stress-induced ischemia.. RISK CATEGORY: Low (<1%% Annual Mortality Rate) Olaf Serrano MD FACR Chest X-Ray 06/26/17 Signed Impressions: Service Date/Time: Monday, June 26, 2017 08:56 - CONCLUSION: Negative for an acute process, improved from 06/16/17. Olaf Serrano MD FACR Carotid Artery Ultrasound 06/26/17 Signed Impressions: Service Date/Time: Monday, June 26, 2017 10:29 - CONCLUSION: Negative examination for a hemodynamically significant carotid stenosis. Olaf Serrano MD Brain MRI 06/26/17 Signed Impressions: Service Date/Time: Monday, June 26, 2017 19:43 - CONCLUSION: 1. Evolving areas of infarction involving the left medial randy and the right basal ganglia. There is some encephalomalacia developing in the left pontine region. 2. Scattered areas of focal signal abnormality within the cerebral white matter representing demyelination. This is nonspecific. It could be secondary to small vessel ischemic change, vasculitis, or underlying demyelinating conditions. This finding was present on the prior exam and appears unchanged. Padilla Heredia MD Wrist X-Ray 06/25/17 1647 Signed Impressions: Service Date/Time: , June 25, 2017 17:11 - CONCLUSION: 1. Soft tissue swelling with no acute fracture or malalignment. 2. Osteopenia and minimal degenerative change. Jeyson Asher MD Head CT 06/25/17 0000 Signed Impressions: Service Date/Time: , June 25, 2017 18:36 - CONCLUSION: Suspected evolving infarct involving the medial left randy. No hemorrhage is seen. Padilla Heredia MD Cervical Spine CT 06/25/17 0000 Signed Impressions: Service Date/Time: , June 25, 2017 18:36 - CONCLUSION: Mild degenerative changes are seen throughout the cervical spine as described above. An acute abnormality is not seen. Padilla Heredia MD Current Medications Medications (Trade) Dose Ordered Sig/[place] Route Start Time Stop Time Status Last Admin (NS Flush) 2 ml UNSCH PRN IVF 06/25/17 20:30 (Xanax) 0.125 mg Q4H PRN PO 06/25/17 21:45 06/28/17 20:58 (Norvasc) 10 mg DAILY PO 06/26/17 09:00 06/29/17 08:02 (Wellbutrin Sr) 150 mg BID PO 06/26/17 09:00 06/29/17 08:03 (Catapres) 0.1 mg Q6H PRN PO 06/25/17 21:45 06/26/17 01:37 (Vitamin B12) 1,000 mcg DAILY PO 06/26/17 09:00 06/29/17 08:03 (Ferrous Sulfate) 325 mg BID@ PO 06/26/17 12:00 06/28/17 17:03 (Neurontin) 600 mg Q8H PO 06/25/17 21:45 06/29/17 15:00 (Apresoline) 50 mg Q8HR PO 06/25/17 22:00 06/29/17 15:00 (Lopressor) 50 mg Q8H PO 06/25/17 21:45 06/29/17 15:00 (Ditropan) 5 mg Q12HR PO 06/26/17 09:00 06/29/17 08:03 (Protonix) 40 mg DAILY PO 06/26/17 09:00 06/29/17 08:02 (Pravachol) 40 mg DAILY PO 06/26/17 09:00 06/29/17 08:03 (Zoloft) 50 mg DAILY PO 06/26/17 09:00 06/29/17 08:03 (Desyrel) 150 mg HS PO 06/26/17 21:00 06/28/17 20:57 Non-Formulary Medication 80 ml stk-med one IV 06/25/17 21:45 (NS Flush) 2 ml UNSCH PRN .XX 06/25/17 21:45 (NS Flush) 2 ml BID .XX 06/26/17 09:00 06/29/17 08:03 (Tylenol) 650 mg Q6H PRN PO 06/25/17 21:45 06/27/17 13:15 (Zofran Inj) 4 mg Q6H PRN IV 06/25/17 21:45 (Ambien) 5 mg HS PRN PO 06/25/17 21:45 (Duoneb Neb) 1 ampule Q2HR NEB PRN INH 06/25/17 21:45 Miscellaneous Information 1 Q361D XX 06/25/17 21:45 (Chlorhexidine 2% Cloth) 3 pack Taper DAILY@04 TOP 06/26/17 04:00 06/22/18 03:59 06/27/17 03:41 (Chlorhexidine 2% Cloth) 3 pack UNSCH PRN TOP 06/25/17 21:45 (Eloisa-Colace) 1 tab BID PO 06/26/17 09:00 06/28/17 20:58 (Milk Of Magnesia Liq) 30 ml Q12H PRN PO 06/25/17 21:45 (Senokot) 17.2 mg Q12H PRN PO 06/25/17 21:45 (Dulcolax Supp) 10 mg DAILY PRN RECTAL 06/25/17 21:45 (Lactulose Liq) 30 ml DAILY PRN PO 06/25/17 21:45 (Pill Splitter) 1 ea UNSCH PRN OTHER 06/25/17 22:45 (Apresoline Inj) 20 mg Q4H PRN IV PUSH 06/26/17 03:15 (Eliquis) 5 mg BID PO 06/26/17 09:00 06/29/17 08:02 ([place] 5-325 Mg) 1 tab Q4H PRN PO 06/27/17 15:30 06/27/17 22:15 ([place] 10-325 Mg) 1 tab Q6H PRN PO 06/27/17 15:30 06/29/17 15:00 (Morphine Inj) 1 mg Q3H PRN IV PUSH 06/28/17 12:45 (Nitroglycerin 2% Oint) 0.5 inch Q6HR PRN TOPICAL 06/28/17 12:45 (Prinivil) 20 mg BID PO 06/28/17 21:00 06/29/17 08:03 (Deltasone) 5 mg DAILY PO 06/30/17 09:00 (Ecotrin Ec) 81 mg DAILY PO 06/30/17 09:00 Assessment and Plan Problem List: (1) Angina pectoris ICD Codes: I20.9 - Angina pectoris, unspecified Plan: No chest pain reported today Negative nuclear stress study continue with current management I will be available on a PRN basis. (2) Stroke ICD Codes: I63.9 - Cerebrovascular accident (CVA) Status: Acute Plan: Stable Manage by neuro (3) HTN (hypertension) ICD Codes: I10 - Essential (primary) hypertension Status: Resolved Plan: SBP 142 Joao Ro MD Jun 29, 2017 16:25
--- NOTE | 2017-06-29 20:19 | EKG ---
Date Performed: 06/28/2017 Time Performed: 12:47:58 PTAGE: 52 years EKG: Sinus rhythm POSSIBLE RIGHT ATRIAL ENLARGEMENT POSSIBLE LEFT ATRIAL ENLARGEMENT POSSIBLE LEFT VENTRICULAR HYPERTR OPHY NONSPECIFIC T-WAVE ABNORMALITY ABNORMAL ECG PREVIOUS TRACING : 05/08/2017 15.27 DOCTOR: Joao Ro Interpretating Date/Time 06/29/2017 20:16:50
[2017-06-29 20:39] VITALS: BP 138/65; PULSE 85; RESP 18; TEMP 98.8; O2SAT 96
[2017-06-29] MEDS: ALPRAZolam 0.25 MG TAB PO PRN (21:21)
[2017-06-29] MEDS: traZODone HCL 50 MG TAB PO SCH (21:21)
[2017-06-30 01:09] VITALS: BP_SYST 128; BP_SYST 142; BP_DIAS 66; BP_DIAS 79; PULSE 84; RESP 18; TEMP 98.7; O2SAT 18
[2017-06-30] MEDS: CHLORHEXIDINE GLUCONATE 2 % 1 PACK (2 CLOTHS) TOP SCH (03:03)
[2017-06-30 05:12] VITALS: BP 137/67; PULSE 82; RESP 18; TEMP 99; O2SAT 98
[2017-06-30] MEDS: METOPROLOL TARTRATE 50 MG TAB PO SCH ×2 (05:28→12:58)
[2017-06-30] MEDS: hydrALAZINE HCL 50 MG TAB PO SCH ×2 (05:28→14:00)
[2017-06-30] MEDS: GABAPENTIN 300 MG CAP PO SCH ×2 (05:28→12:58)
[2017-06-30] MEDS: ACETAMINOPHEN/HYDROcodone 325 MG/10 MG TAB PO PRN ×2 (05:29→11:45)
[2017-06-30 08:00] VITALS: BP 148/71; PULSE 84; RESP 18; TEMP 98.6; O2SAT 97
[2017-06-30] MEDS ORDERED: ASPIRIN EC 81 MG TABEC PO SCH (09:00)
[2017-06-30] MEDS: SODIUM CHLORIDE 0.9% FLUSH 10 ML FLUSH SCH (09:00)
[2017-06-30] MEDS: DOCUSATE SODIUM 50 MG/SENNA 8.6 MG TAB PO SCH (09:00)
[2017-06-30] MEDS ORDERED: predniSONE 5 MG TAB PO SCH (09:00)
[2017-06-30] MEDS: PRAVASTATIN SOD 40 MG TAB PO SCH (09:24)
[2017-06-30] MEDS: buPROPion HCL 150 MG SUSTAINED RELEASE TAB PO SCH (09:25)
[2017-06-30] MEDS: PANTOPRAZOLE SOD 40 MG DELAYED RELEASE TAB PO SCH (09:25)
[2017-06-30] MEDS: LISINOPRIL 20 MG TAB PO SCH (09:25)
[2017-06-30] MEDS: OXYBUTYNIN CHLORIDE 5 MG TAB PO SCH (09:25)
[2017-06-30] MEDS: SERTRALINE HCL 50 MG TAB PO SCH (09:25)
[2017-06-30] MEDS: CYANOCOBALAMIN 1,000 MCG TAB PO SCH (09:26)
[2017-06-30] MEDS: APIXABAN 2.5 MG TABLET PO SCH (09:26)
[2017-06-30] MEDS: FERROUS SULFATE 325 MG (65 MG ELEMENTAL IRON) TAB PO SCH (11:44)
[2017-06-30] MEDS: ALPRAZolam 0.25 MG TAB PO PRN (12:25)
[2017-06-30 12:37] VITALS: BP 116/57; PULSE 84; RESP 18; TEMP 98.7; O2SAT 96
--- NOTE | 2017-06-30 13:15 | HHI.FF ---
Face to Face Verification Diagnosis: (1) CVA (cerebral vascular accident) Physical Therapy Order: Evaluate and Treat Home Health Nursing Order: Signs/symptoms of disease process I have seen patient Ryley Fam on 06/30/17. My clinical findings support the need for the requested home health care services because: Deconditioned w/ increased weakness I certify that my clinical findings support that this patient is homebound because: Poor cardiac reserve Al Laird MD Jun 30, 2017 13:15
[2017-06-30] MEDS ORDERED: ASPI-99 PO (13:23)
[2017-06-30] MEDS ORDERED: PRED5TAB PO (13:23)
[2017-06-30] MEDS ORDERED: LISI-515 PO (13:23)
--- NOTE | 2017-06-30 13:29 | HHI.PR ---
Subjective Remarks Follow-up left CVA 06/30/17-patient seen and examined, reports significant improvement or weakness to upper extremity. No acute event overnight Objective Vitals Vital Signs Date Time Temp Pulse Resp B/P (MAP) Pulse Ox O2 Delivery O2 Flow Rate FiO2 06/30/17 12:37 98.7 84 18 116/57 (76) 96 06/30/17 08:00 98.6 84 18 148/71 (96) 97 06/30/17 05:12 99.0 82 18 137/67 (90) 98 06/30/17 01:09 98.7 84 18 142/66 (91) 18 06/29/17 20:39 98.8 85 18 138/65 (89) 96 06/29/17 16:03 98.3 77 18 142/74 (96) 98 I/O 06/29/17 06/29/17 06/29/17 06/30/17 06/30/17 06/30/17 07:00 15:00 23:00 07:00 15:00 23:00 Intake Total 240 ml Balance 240 ml Intake Oral 240 ml # Voids 5 4 # Bowel Movements 3 Result Diagram: 06/27/17 0405 06/27/17 0405 Imaging Last Impressions Myocardial Perfusion Scan Nuc Med 06/29/17 0000 Signed Impressions: Service Date/Time: Thursday, June 29, 2017 12:09 - CONCLUSION: Negative for stress-induced ischemia.. RISK CATEGORY: Low (<1%% Annual Mortality Rate) Olaf Serrano MD FACR Chest X-Ray 06/26/17 0000 Signed Impressions: Service Date/Time: Monday, June 26, 2017 08:56 - CONCLUSION: Negative for an acute process, improved from 06/16/17. Olaf Serrano MD FACR Carotid Artery Ultrasound 06/26/17 0000 Signed Impressions: Service Date/Time: Monday, June 26, 2017 10:29 - CONCLUSION: Negative examination for a hemodynamically significant carotid stenosis. Olaf Serrano MD Brain MRI 06/26/17 0000 Signed Impressions: Service Date/Time: Monday, June 26, 2017 19:43 - CONCLUSION: 1. Evolving areas of infarction involving the left medial randy and the right basal ganglia. There is some encephalomalacia developing in the left pontine region. 2. Scattered areas of focal signal abnormality within the cerebral white matter representing demyelination. This is nonspecific. It could be secondary to small vessel ischemic change, vasculitis, or underlying demyelinating conditions. This finding was present on the prior exam and appears unchanged. Padilla Heredia MD Wrist X-Ray 06/25/17 1647 Signed Impressions: Service Date/Time: , June 25, 2017 17:11 - CONCLUSION: 1. Soft tissue swelling with no acute fracture or malalignment. 2. Osteopenia and minimal degenerative change. Jeyson Asher MD Head CT 06/25/17 0000 Signed Impressions: Service Date/Time: , June 25, 2017 18:36 - CONCLUSION: Suspected evolving infarct involving the medial left randy. No hemorrhage is seen. Padilla Heredia MD Cervical Spine CT 06/25/17 0000 Signed Impressions: Service Date/Time: , June 25, 2017 18:36 - CONCLUSION: Mild degenerative changes are seen throughout the cervical spine as described above. An acute abnormality is not seen. Padilla Heredia MD Objective Remarks GENERAL: NAD SKIN: Warm and dry. HEAD: Normocephalic. EYES: No scleral icterus. No injection or drainage. NECK: Supple, trachea midline. No JVD or lymphadenopathy. CARDIOVASCULAR: Regular rate and rhythm without murmurs, gallops, or rubs. RESPIRATORY: Breath sounds equal bilaterally. No accessory muscle use. GASTROINTESTINAL: Abdomen soft, non-tender, nondistended. MUSCULOSKELETAL: No cyanosis, or edema. RUE/RLE weakness BACK: Nontender without obvious deformity. No CVA tenderness. Procedures none A/P Problem List: (1) Hemiparesis affecting right side as late effect of cerebrovascular accident (CVA) ICD Code: I69.351 - Hemiplegia and hemiparesis following cerebral infarction affecting right dominant side Status: Acute (2) HTN (hypertension) ICD Code: I10 - Essential (primary) hypertension Status: Resolved (3) Angina pectoris ICD Code: I20.9 - Angina pectoris, unspecified Assessment and Plan 52-year-old female with 1)Left sided CVA 2)HTN 3)Dyslipidemia 4)HX Lupus 5)Anxiety/Depression 6)Angina Neuro: Monitor neuro status and avoid sedatives, on Wellbutrin, Zoloft, Trazodone CT brain 06/25: Suspected evolving infarct involving the medial left randy. No hemorrhage is seen. MRI of brain shows evolving infarct in left medial randy and right basal ganglia. Discussed the case w Dr. Blue, from her standpoint continue statin and blood thinners. Pt can be discharged as there are no new infarcts. Carotid u/s neg. Pt had a recent echo 05/11 showing normal EF Continue Eliquis, Statins PT and OT eval and treat as tolerated. Pulm: Oxygen PRN keep sat >92% On Prednisone 5mg daily CV: now on ASA 81mg po daily EKG personally interpreted and no e/o ischemic changes Troponin negative x 3 Morphine and Nitro paste prn chest pain Cardiology consulted Treated with Lisinopril 20mg BID, Norvasc 10mg daily and Lopressor 50mg q8h ECHO shows findings consistent with hypertrophic cardiomyopathy, moderate concentric left ventricular hypertrophy, EF 60% and grade 1 diastolic dysfunction Negative stress test 06/29/17 DVT GI prophylaxis - Eliquis - Pantoprazole Discharge Planning D/c at home with [facility] Al Laird MD Jun 30, 2017 13:29
--- NOTE | 2017-06-30 13:31 | HHI.DS ---
Discharge Summary Admission Date Jun 25, 2017 at 20:52 Discharge Date: Jun 30, 2017 Admitting Diagnosis CVA (1) Hemiparesis affecting right side as late effect of cerebrovascular accident (CVA) ICD Code: I69.351 - Hemiplegia and hemiparesis following cerebral infarction affecting right dominant side Status: Acute (2) HTN (hypertension) ICD Code: I10 - Essential (primary) hypertension Status: Resolved (3) Angina pectoris ICD Code: I20.9 - Angina pectoris, unspecified Procedures none Brief History - From Admission 52-year-old female presenting to emergency for evaluation after a fall. She was discharged from [facility] yesterday and since she's been home she has fallen twice. Once when she fell out of her wheelchair face forward onto the ground and bumping her head last night, and then she fell out of bed this morning when she attempted to get up on her own. Patient is supposed to be using assistance with transfer to the wheelchair only and she has been attempting to get up on her own subsequent relief falling. Today she presents to the emergency department with bilateral wrist pain secondary to the fall. She is currently on Eliquis, she had a stroke in April 2017 which was the reason for the admission to the rehabilitation Center. The CT of the head revealed evolving stroke involving left middle randy. She is admitted to ICU as a stroke alert. CBC/BMP: 06/27/17 0405 06/27/17 0405 Significant Findings Laboratory Tests Test 06/28/17 13:20 06/28/17 20:20 06/29/17 01:11 Total Creatine Kinase 20 U/L (26-192) 24 U/L (26-192) Troponin I LESS THAN 0.02 NG/ML PE at Discharge GENERAL: NAD SKIN: Warm and dry. HEAD: Normocephalic. EYES: No scleral icterus. No injection or drainage. NECK: Supple, trachea midline. No JVD or lymphadenopathy. CARDIOVASCULAR: Regular rate and rhythm without murmurs, gallops, or rubs. RESPIRATORY: Breath sounds equal bilaterally. No accessory muscle use. GASTROINTESTINAL: Abdomen soft, non-tender, nondistended. MUSCULOSKELETAL: No cyanosis, or edema. RUE/RLE weakness BACK: Nontender without obvious deformity. No CVA tenderness. Hospital Course 1)Left sided CVA 2)HTN 3)Dyslipidemia 4)HX Lupus 5)Anxiety/Depression 6)Angina Neuro: Monitor neuro status and avoid sedatives, on Wellbutrin, Zoloft, Trazodone CT brain 06/25: Suspected evolving infarct involving the medial left randy. No hemorrhage is seen. MRI of brain shows evolving infarct in left medial randy and right basal ganglia. Discussed the case w Dr. Blue, from her standpoint continue statin and blood thinners. Pt can be discharged as there are no new infarcts. Carotid u/s neg. Pt had a recent echo 05/11 showing normal EF Continue Eliquis, Statins PT and OT eval and treat as tolerated. Pulm: Oxygen PRN keep sat >92% On Prednisone 5mg daily CV: now on ASA 81mg po daily EKG personally interpreted and no e/o ischemic changes Troponin negative x 3 Morphine and Nitro paste prn chest pain Cardiology consulted Treated with Lisinopril 20mg BID, Norvasc 10mg daily and Lopressor 50mg q8h ECHO shows findings consistent with hypertrophic cardiomyopathy, moderate concentric left ventricular hypertrophy, EF 60% and grade 1 diastolic dysfunction Negative stress test 06/29/17 DVT GI prophylaxis - Eliquis - Pantoprazole Pt Condition on Discharge: Stable Discharge Disposition: Disch w/ Home Health Serv Discharge Time: > 30 minutes Discharge Instructions DIET: Follow Instructions for: Heart Healthy Diet Activities you can perform: Regular-No Restrictions Follow up Referrals: Neurology PCP Follow-up - 1 Week New Medications: Aspirin DR (Adult Aspirin EC Low Strength) 81 Mg Tabec 81 MG PO DAILY for Prevent Blood Clot, #30 TAB Lisinopril (Lisinopril) 20 Mg Tab 20 MG PO BID for Blood Pressure Management, #60 TAB Prednisone (Prednisone) 5 Mg Tab 5 MG PO DAILY for Immunosuppression, #7 TAB Continued Medications: Alprazolam (Alprazolam) 0.25 Mg Tab 0.125 MG PO Q4H PRN for ANXIETY, TAB 0 Refills Amlodipine (Norvasc) 10 Mg Tab 10 MG PO DAILY for Blood Pressure Management, #30 TAB Apixaban (Eliquis) 2.5 Mg Tab 5 MG PO BID for 30 Days, TAB 1 Refill Bupropion HCl ER 12 HR (Wellbutrin SR 12 HR) 150 Mg Tab 150 MG PO BID for 1 Day, TAB Clonidine (Catapres) 0.1 Mg Tab 0.1 MG PO Q6H PRN for SYS BP GREATER THAN 150 MMHG for 30 Days, TAB Cyanocobalamin (Vitamin B-12) 1,000 Mcg Tab 1000 MCG PO DAILY for Nutritional Supplement for 30 Days, TAB Ferrous Sulfate (Ferosul) 325 Mg Tablet 325 MG PO BID@12,17 for 1 Day Gabapentin (Neurontin) 300 Mg Cap 600 MG PO Q8H for 1 Day, CAP Hydralazine HCl (Hydralazine HCl) 50 Mg Tablet 50 MG PO Q8HR for Blood Pressure Management, #90 MG Hydrocodone-Acetaminophen (Hydrocodone-Acetaminophen) 5-300 Mg Tab 1 TAB PO Q6H PRN for PAIN, TAB 0 Refills Iohexol (Omnipaque) 140 Mg/Ml Inj 80 ML IV stk-med one Lisinopril (Lisinopril) 20 Mg Tab 20 MG PO BID for Blood Pressure Management for 30 Days, TAB Magnesium Citrate (Magnesium Citrate) 100 Mg Tab 300 MG PO DAILY PRN for CONSTIPATION, TAB 0 Refills Metoprolol Tartrate (Lopressor) 50 Mg Tab 50 MG PO Q8H for Blood Pressure Management, #90 TAB Oxybutynin (Ditropan) 5 Mg Tab 5 MG PO Q12HR for Urinary Symptom Managemen, #60 TAB 0 Refills Oyster Shell (Calcium Oyster Shell) 500 Mg Calcium (1250 Mg) Tab 1000 MG PO BID for Calcium Supplement for 30 Days, TAB Pantoprazole (Pantoprazole) 40 Mg Tab 40 MG PO DAILY for 1 Day, TAB Potassium Chloride ER (Potassium Chloride ER) 10 Meq Tab 10 MEQ PO DAILY for Electrolyte Replacement, #30 TAB 0 Refills Potassium Chloride ER (Klor-Con 10) 10 Meq Tab 10 MEQ PO DAILY for Nutritional Supplement for 30 Days, TAB 1 Refill Pravastatin (Pravachol) 40 Mg Tab 40 MG PO DAILY for 1 Day, TAB Sennosides-Docusate Sodium (Senna Plus 8.6-50 mg) 8.6 Mg-50 Mg Tab 1 TAB PO BID for Constipation for 30 Days, TAB Sertraline (Zoloft) 50 Mg Tab 50 MG PO DAILY for 1 Day, TAB Trazodone (Trazodone) 50 Mg Tab 150 MG PO HS for 1 Day, TAB Discontinued Medications: Alprazolam (Xanax) 1 Mg Tab 1 MG PO Q8H PRN for ANXIETY, #30 TAB Amlodipine (Norvasc) 10 Mg Tab 10 MG PO DAILY for Blood Pressure Management for 30 Days, TAB 1 Refill Apixaban (Eliquis) 2.5 Mg Tab 2.5 MG PO BID for Blood Clot Prevention, #90 TAB 0 Refills START eliquis when INR is less than 2. Call Dr Culver regarding INR Bupropion HCl ER 12 HR (Wellbutrin SR 12 HR) 150 Mg Tab 150 MG PO BID for Depression Control for 30 Days, TAB 1 Refill Collagenase Topical (Santyl Topical) 250 Unit/Gm Oint 1 APPLIC TOPICAL DAILY for Wound Management, #15 GM 0 Refills Ferrous Sulfate (Ferosul) 325 Mg (65 Mg Iron) Tablet 325 MG PO Q8HR for 30 Days, 1 Refill Gabapentin (Neurontin) 400 Mg Cap 400 MG PO Q8HR for Pain Management for 30 Days, CAP 1 Refill Hydralazine HCl (Hydralazine HCl) 50 Mg Tablet 50 MG PO Q8HR for 30 Days, 1 Refill Hydrocodone-Acetaminophen (Hydrocodone-Acetaminophen) 10-325 mg Tab 1 TAB PO Q8HR PRN for PAIN SCALE 4 TO 10, #60 TAB Lidocaine Patch 12 HR (Lidocaine Patch 12 HR) 5 % Patch 1 PATCH TOPICAL DAILY PRN for PAIN, #1 BOX 0 Refills Remove patch after 12 hours Lisinopril (Lisinopril) 20 Mg Tab 20 MG PO DAILY for Blood Pressure Management, #30 TAB Metoprolol Tartrate (Metoprolol Tartrate) 25 Mg Tab 75 MG PO Q8H for Blood Pressure Management for 30 Days, TAB 1 Refill Nystatin Topical (Nystatin Topical) 100,000 unit/gm Cream 1 APPLIC TOPICAL BID for Infection for 30 Days, GM 0 Refills Oxybutynin (Ditropan) 5 Mg Tab 5 MG PO Q12HR for Urinary Symptom Managemen for 30 Days, TAB 1 Refill Pantoprazole (Pantoprazole) 40 Mg Tab 40 MG PO DAILY for Heartburn Management for 30 Days, TAB Pravastatin (Pravachol) 40 Mg Tab 40 MG PO DAILY for 30 Days, TAB 1 Refill Prednisone (Prednisone) 10 Mg Tab 10 MG PO DAILY for copd , #10 TAB Prednisone (Prednisone) 10 Mg Tab 10 MG PO DAILY for Pain for 3 Days, TAB Sertraline (Zoloft) 50 Mg Tab 50 MG PO DAILY for Depression Control for 30 Days, TAB 1 Refill Trazodone (Trazodone) 50 Mg Tab 100 MG PO HS for Depression Control for 30 Days, TAB 1 Refill Al Laird MD Jun 30, 2017 13:31
[2017-06-30 16:08] VITALS: BP 121/68; PULSE 86; RESP 18; TEMP 98.9; O2SAT 95
== END 2017-06-30 15:45 | disposition home health service (06) | DRG 65 ==
LOC: NEPD 16:30 → NEDA 20:52 → HIMW 22:30 → N05A 06-27 18:15
PROVIDERS: ADMIT Hospitalist; ATTEND Hospitalist
DX: I63.9 Cerebral infarction, unspecified (principal); G81.91 Hemiplegia, unspecified affecting right dominant side; R64 Cachexia; I42.2 Other hypertrophic cardiomyopathy; M32.9 Systemic lupus erythematosus, unspecified; Z68.1 Body mass index [BMI] 19.9 or less, adult; I10 Essential (primary) hypertension; F32.9 Major depressive disorder, single episode, unspecified; E78.5 Hyperlipidemia, unspecified; F41.9 Anxiety disorder, unspecified; G47.00 Insomnia, unspecified; D64.9 Anemia, unspecified; K59.00 Constipation, unspecified; Z87.891 Personal history of nicotine dependence; Z79.82 Long term (current) use of aspirin; I20.9 Angina pectoris, unspecified
CPT/HCPCS: 70450; 70551; 71010; 72125; 73110; 78452; 80048; 80053; 82550; 83735; 84100; 84484; 85025; 85610; 85730; 87641; 93005; 93017; 93308; 93880; 99285; A9502; J2785; J7512

== ENCOUNTER 2017-07-05 22:07 | Emergency (ER) | payer MEDICARE, OTHER ==
[~2017-07-05] VITALS: Ht 167.6 cm; Wt 48.0 kg
[~2017-07-05 22:07] MED LIST changes: +ASPI-99 PO; -COLL30T TOPICAL; -HYDR-3583 PO; -LIDO1PAD52 TOPICAL; -METO25TA3 PO; -NEUR400C PO; -NYST15T TOPICAL; -PRED10 PO; +PRED5TAB PO; -XANA1TAB2 PO
[2017-07-05 22:18] VITALS: BP 121/67; PULSE 81; RESP 18; TEMP 98.8; O2SAT 96
--- NOTE | 2017-07-05 23:17 | RADRPT ---
EXAM DATE/TIME: 07/05/2017 22:45 [facility] COMPARISON: No previous studies available for comparison. INDICATIONS : Right leg edema. MEDICAL HISTORY : Myocardial infarction. Hypertension. Gastroesophageal reflux disease. Right hemiparesis. CVA. Ulce r. Chest pain. Hepatitis C. Gastritis. Arthritis. Osteoporosis. Anemia. MRSA. SURGICAL HISTORY : Inguinal hernia repair. Hysterectomy. section. Dentures. ENCOUNTER: Subsequent ACUITY: 1 day PAIN SCORE: Non-responsive LOCATION: Right leg. TECHNIQUE: Venous ultrasound of the leg was performed from the inguinal ligament to the proximal calf. Real-doreen e, color Doppler and spectral tracing, compression and augmentation techniques were used. FINDINGS: There is normal compressibility of the deep venous system from the inguinal region to the proximal ca lf. No echogenic clot is seen in the lumen of the common femoral, femoral, popliteal, and posterior tibial veins. There is a normal response of the venous system to proximal and distal augmentation an d respiration. CONCLUSION: 1. Negative for deep venous thrombosis. 1.6 cm Nguyen's cyst. Bert Wiggins MD on July 05, 2017 at 23:14 Board Certified Radiologist. This report was verified electronically.
--- NOTE | 2017-07-05 23:28 | PD ---
HPI . Right foot swelling Chief Complaint: Edema Time Seen by Provider: 22:18 Travel History International Travel<30 days: No Contact w/Intl Traveler<30days: No Traveled to known affect area: No History of Present Illness HPI This patient presents to us via [facility] with the chief complaint of right foot swelling. Onset was yesterday. Swelling is mild. It is causing no pain. She has no other complaints. Her medical history is significant for a previous recent DVT. It was diagnosed on May 27. She had a subsequent ultrasound done on June 12 which was negative for DVT. She is currently maintained on Eliquis. 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) Blood Disorders: Yes (BLOOD TRANSFUSION ) Anxiety: Yes Depression: Yes Heart Rhythm Problems: No Cancer: No Cardiovascular Problems: Yes High Cholesterol: Yes Chemotherapy: No Chest Pain: Yes (Current especially with deep breath) Congestive Heart Failure: No COPD: No Cerebrovascular Accident: Yes (RT basal ganglia and left pontine infarction, R SIDED WEAKNESS ) Diabetes: No Diminished Hearing: No Endocrine: No Gastrointestinal Disorders: Yes (Gastritis, and stomach discomfort supposedly caused by blood pressure med,) Genitourinary: Yes (incontinence, bladder spasm) Headaches: No Hepatitis: Yes (c) Hiatal Hernia: No Hypertension: Yes Immune Disorder: Yes (Lupus, porphyria cuteanous tarda) Implanted Vascular Access Dvce: Yes Kidney Stones: No Medical other: Yes (porphoriacutenous tarda) Musculoskeletal: Yes (Spine and arthritis problems) Neurologic: Yes (Central Tremors, right hemiparesis with facial droop) Psychiatric: Yes (anxiety and depression) Reproductive: Yes Respiratory: Yes (acute respiratory failure) Integumentary: Yes (PORPHYRIA CUTANEATARDA METABOLIC PHOTO SENSATIVITY) Immunizations Current: Yes Migraines: Yes Radiation Therapy: No Renal Failure: No Seizures: No Sickle Cell Disease: No Sleep Apnea: No Thyroid Disease: No Ulcer: Yes (hepatitis C) Tetanus Vaccination: > 5 Years Influenza Vaccination: Yes ?: Not Menopausal: Yes Past Surgical History Abdominal Surgery: Yes (INGUINAL HERNIA REPAIR) AICD: No Arteriovenous Shunt: No Body Medical Devices: right shoulder plates and screws along with a hernia mesh Cardiac Surgery: No Section: Yes Endocrine Surgery: No Eye Surgery: No Genitourinary Surgery: No Gynecologic Surgery: Yes (HYSTERECTOMY, ) Hysterectomy: Yes Insulin Pump: No Joint Replacement: No Neurologic Surgery: No Oral Surgery: Yes (dentures) Pacemaker: No Thoracic Surgery: No Other Surgery: Yes (R shoulder ORIF April 03) Social History Alcohol Use: No Tobacco Use: No (QUIT 05/08/2017) Substance Use: No Allergies-Medications (Allergen,Severity, Reaction): Coded Allergies: Influenza Virus Vaccines (Unverified Allergy, Severe, Respiratory Failure , 07/05/17) sulfamethoxazole (Unverified Allergy, Severe, SKIN PROBLEMS, 07/05/17) trimethoprim (Unverified Allergy, Severe, SKIN PROBLEMS, 07/05/17) Reported Meds & Prescriptions Reported Meds & Active Scripts Active Prednisone 5 Mg Tab 5 Mg PO DAILY Adult Aspirin EC Low Strength (Aspirin) 81 Mg Tabec 81 Mg PO DAILY Lisinopril 20 Mg Tab 20 Mg PO BID Wheelchair (Device) 1 Mis Mis Ea .ROUTE DIRECTED Catapres (Clonidine) 0.1 Mg Tab 0.1 Mg PO Q6H PRN 30 Days Calcium Oyster Shell (Oyster Shell) 500 Mg Calcium (1250 Mg) Tab 1,000 Mg PO BID 30 Days Vitamin B-12 (Cyanocobalamin) 1,000 Mcg Tab 1,000 Mcg PO DAILY 30 Days Senna Plus 8.6-50 mg (Sennosides-Docusate Sodium) 8.6 Mg-50 Mg Tab 1 Tab PO BID 30 Days Furosemide 40 Mg Tab 40 Mg PO DAILY 30 Days Klor-Con 10 (Potassium Chloride) 10 Meq Tab 10 Meq PO DAILY 30 Days Lisinopril 20 Mg Tab 20 Mg PO BID 30 Days Eliquis (Apixaban) 2.5 Mg Tab 5 Mg PO BID 30 Days Commode 3-in-1 (Device) 1 Mis Mis Ea .ROUTE DIRECTED Furosemide 20 Mg Tab 20 Mg PO DAILY Norvasc (Amlodipine Besylate) 10 Mg Tab 10 Mg PO DAILY Lopressor (Metoprolol Tartrate) 50 Mg Tab 50 Mg PO Q8H Hydralazine HCl 50 Mg Tablet 50 Mg PO Q8HR Trazodone (Trazodone HCl) 50 Mg Tab 150 Mg PO HS 1 Days Zoloft (Sertraline HCl) 50 Mg Tab 50 Mg PO DAILY 1 Days Pravachol (Pravastatin) 40 Mg Tab 40 Mg PO DAILY 1 Days Pantoprazole (Pantoprazole Sodium) 40 Mg Tab 40 Mg PO DAILY 1 Days Neurontin (Gabapentin) 300 Mg Cap 600 Mg PO Q8H 1 Days Ferosul (Ferrous Sulfate) 325 Mg Tablet 325 Mg PO BID@12,17 1 Days Wellbutrin SR 12 HR (Bupropion HCl) 150 Mg Tab 150 Mg PO BID 1 Days Reported Alprazolam 0.25 Mg Tab 0.125 Mg PO Q4H PRN Hydrocodone-Acetaminophen 5-300 Mg Tab 1 Tab PO Q6H PRN Omnipaque (Iohexol) 140 Mg/Ml Inj 80 Ml IV STK-MED ONE Magnesium Citrate 100 Mg Tab 300 Mg PO DAILY PRN Potassium Chloride ER (Potassium Chloride) 10 Meq Tab 10 Meq PO DAILY Ditropan (Oxybutynin Chloride) 5 Mg Tab 5 Mg PO Q12HR Review of Systems Except as stated in HPI: all other systems reviewed are Neg Cardiovascular: No: Chest Pain or Discomfort Respiratory: No: Shortness of Breath Neurologic: Positive: Focal Abnormalities (previous CVA) Physical Exam Narrative GENERAL: Thin, chronically ill-appearing woman who does not appear to be in any distress. SKIN: She has a stage III sacral decubitus which does not appear infected. She also has an ulcer on her right lateral malleolus which is scabbed. There is some surrounding swelling. HEAD: Normocephalic/atraumatic. EYES: Pupils are equal. Extraocular movements are intact. NECK: Supple. CARDIOVASCULAR: Regular rate and rhythm. RESPIRATORY: Nonlabored respirations. MUSCULOSKELETAL: Atraumatic. NEUROLOGICAL: Right-sided hemiparesis secondary to previous CVA. PSYCHIATRIC: Appropriate mood and affect. Data Data Last Documented VS Vital Signs Date Time Temp Pulse Resp B/P (MAP) Pulse Ox O2 Delivery O2 Flow Rate FiO2 07/05/17 22:20 18 Room Air 07/05/17 22:18 98.8 81 121/67 (85) 96 Orders Orders Us Leg Venous Doppler (07/05/17 22:18) MDM Medical Decision Making Medical Screen Exam Complete: Yes Emergency Medical Condition: Yes Medical Record Reviewed: Yes (medical history significant for CVA. She also has a history of hyperlipidemia, hypertension and previous respiratory failure.) Interpretation(s) EKG shows a normal sinus rhythm with no acute ischemic change. Differential Diagnosis My differential diagnosis of a swollen extremity includes but is not limited to superficial phlebitis, DVT, cellulitis, arthritis, fluid and electrolyte problem Narrative Course This patient presents for evaluation of swelling of the right lower extremity. Last Impressions Lower Extremity Ultrasound 07/05/17 [id number] Signed Impressions: Service Date/Time: Wednesday, July 05, 2017 22:45 - CONCLUSION: 1. Negative for deep venous thrombosis. 1.6 cm Nguyen's cyst. Bert Wiggins MD This patient is medically clear for discharge. Diagnosis Primary Impression: Right leg swelling Patient Instructions: General Instructions, Leg Edema (ED) Disposition: 01 DISCHARGE HOME Condition: Stable Dunia Barraza MD Jul 05, 2017 23:28
[2017-07-06 00:30] VITALS: BP 122/63; PULSE 121; RESP 18; O2SAT 95
[2017-07-06 02:37] VITALS: BP 118/75; PULSE 89; RESP 18; O2SAT 94
[2017-07-06 06:09] VITALS: BP 147/75; PULSE 97; RESP 14; O2SAT 98
[2017-07-06] MEDS: APIXABAN 5 MG TABLET PO SCH ×2 (09:00)
--- NOTE | 2017-07-06 13:54 | EKG ---
Date Performed: 07/05/2017 Time Performed: 22:20:06 PTAGE: 52 years EKG: Sinus rhythm POSSIBLE LEFT ATRIAL ENLARGEMENT POSSIBLE LEFT VENTRICULAR HYPERTROPHY ABNORMAL ECG Compared to prio r tracing no significant change PREVIOUS TRACING : 06/28/2017 12.47 DOCTOR: Juany Jimenez Interpretating Date/Time 07/06/2017 13:52:32
== END 2017-07-06 10:39 | disposition home or self-care (01) ==
LOC: NEPE 22:07
DX: M79.89 Other specified soft tissue disorders (principal); I10 Essential (primary) hypertension; Z87.891 Personal history of nicotine dependence
CPT/HCPCS: 93005; 93971; 99284

== ENCOUNTER 2017-07-20 15:09 | Inpatient (IN) | payer MEDICARE, OTHER ==
[~2017-07-20] VITALS: Ht 167.6 cm; Wt 48.6 kg
[~2017-07-20 15:09] MED LIST changes: -FURO40TA PO; -POTA10TA2 PO
[2017-07-20 15:40] VITALS: BP 96/59; PULSE 95; RESP 16; TEMP 97.8; O2SAT 95
[2017-07-20 16:27] LABS: BASOPHIL % 0.9 % (0.0-2.0); EOSINOPHIL % 0.1 % (0.0-4.0); HEMATOCRIT 31.3 % (35.0-46.0); HEMO FLAGS DIFF FINAL; LYMPHOCYTE # 1.6 TH/MM3 (1.0-4.8); MEAN CELL VOLUME 81.2 FL (80.0-100.0); MEAN CORPUSCULAR HEMOGLOBIN 25.5 PG (27.0-34.0); MEAN CORPUSCULAR HGB CONC 31.4 % (32.0-36.0); MONO % 4.2 % (0.0-8.0); NEUT % 61.8 % (16.0-70.0); PLATELET COUNT 402 TH/MM3 (150-450); RED BLOOD COUNT 3.86 MIL/MM3 (4.00-5.30); RED CELL DISTRIBUTION WIDTH 20.3 % (11.6-17.2); WHITE BLOOD COUNT 4.8 TH/MM3 (4.0-11.0)
--- NOTE | 2017-07-20 16:28 | RADRPT ---
EXAM DATE/TIME: 07/20/2017 15:56 [facility] COMPARISON: CHEST SINGLE AP, June 26, 2017, 8:56. INDICATIONS : Fever MEDICAL HISTORY : Hepatitis C. Hypertension. Gastroesophageal reflux disease. SURGICAL HISTORY : Hysterectomy. section. Inguinal hernia repair. Right shoulder hardware placement ENCOUNTER: Initial ACUITY: 1 day PAIN SCORE: 0/10 LOCATION: chest FINDINGS: The heart is enlarged. There is minimal effusion at the right lung base. This is similar to the prior exam. There is a small area of atelectasis along the lateral margin of the right lower lobe. This is stable as well. The remainder the parenchyma is clear. Bony structures demonstrate postsurgical changes in the right proximal humerus but are otherwise inta ct. CONCLUSION: 1. Small right-sided effusion and atelectasis. Stable compared to previous. Stephen Serrano MD on July 20, 2017 at 16:26 Board Certified Radiologist. This report was verified electronically.
[2017-07-20 16:35] LABS: BACTERIA, URINE RARE /hpf; BLOOD, URINE TRACE (NEG); GLUCOSE,URINE NEG (NEG); HYALINE CAST, URINE 6 /lpf (RARE); KETONE, URINE NEG (NEG); MUCUS URINE FEW /lpf (OCC); NITRITE,URINE NEG (NEG); PH, URINE 5.5 (5.0-8.5); SQUAMOUS EPITHELIAL CELL URINE 1 /hpf (0-5); URINE COLOR YELLOW (YELLW/STRAW)
[2017-07-20 16:36] LABS: COMMENT (UR) CULT NOT INDICATED; CULTURE IF INDICATED CULT NOT INDICATED
[2017-07-20 16:40] LABS: ANION GAP 7 MEQ/L (5-15); AST (GOT) 93 U/L (15-37); BICARBONATE 29.8 MEQ/L (21.0-32.0); BLOOD UREA NITROGEN 24 MG/DL (7-18); CHLORIDE 104 MEQ/L (98-107); GLOMERULAR FILTRATION RATE 64 ML/MIN (>89); POTASSIUM 3.4 MEQ/L (3.5-5.1); SODIUM (NA) 141 MEQ/L (136-145)
[2017-07-20 16:41] LABS: ALT (GPT) 21 U/L (10-53)
[2017-07-20 16:43] LABS: ALKALINE PHOSPHATASE 91 U/L (45-117); TOTAL BILIRUBIN ADULT 0.5 MG/DL (0.2-1.0)
[2017-07-20 16:46] VITALS: BP 134/62; PULSE 64; RESP 17; TEMP 97.8; O2SAT 97
--- NOTE | 2017-07-20 17:43 | PD ---
HPI Chief Complaint: Fall Time Seen by Provider: 17:06 Travel History International Travel<30 days: No Contact w/Intl Traveler<30days: No Traveled to known affect area: No History of Present Illness HPI Patient is a 52-year-old female that was sent to emergency department for evaluation of weakness. Patient stated her home health nurse thought she was weak and should be evaluated. Patient states that she was in the bathroom last night at approximately 1:30 AM, she did not have her wheelchair with her and she fell forward hitting her head on the wall. Patient is a history of CVA, she has significant residual right-sided weakness. She is supposed to be ambulating with a walker or using a wheelchair. Patient has no physical complaints at this time. She states that her bed sores are getting better and the home health nurses are monitoring them. She denies any chest pain, headache , dysuria, abdominal pain, fever, chills. 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) Blood Disorders: Yes (BLOOD TRANSFUSION ) Anxiety: Yes Depression: Yes Heart Rhythm Problems: No Cancer: No Cardiovascular Problems: Yes High Cholesterol: Yes Chemotherapy: No Chest Pain: Yes (Current especially with deep breath) Congestive Heart Failure: No COPD: No Cerebrovascular Accident: Yes (RT basal ganglia and left pontine infarction, R SIDED WEAKNESS ) Diabetes: No Diminished Hearing: No Endocrine: No Gastrointestinal Disorders: Yes (Gastritis, and stomach discomfort supposedly caused by blood pressure med,) Genitourinary: Yes (incontinence, bladder spasm) Headaches: No Hepatitis: Yes (c) Hiatal Hernia: No Hypertension: Yes Immune Disorder: Yes (Lupus, porphyria cuteanous tarda) Implanted Vascular Access Dvce: Yes Kidney Stones: No Medical other: Yes (porphoriacutenous tarda) Musculoskeletal: Yes (Spine and arthritis problems) Neurologic: Yes (Central Tremors, right hemiparesis with facial droop) Psychiatric: Yes (anxiety and depression) Reproductive: Yes Respiratory: Yes (acute respiratory failure) Integumentary: Yes (PORPHYRIA CUTANEATARDA METABOLIC PHOTO SENSATIVITY) Immunizations Current: Yes Migraines: Yes Radiation Therapy: No Renal Failure: No Seizures: No Sickle Cell Disease: No Sleep Apnea: No Thyroid Disease: No Ulcer: Yes (hepatitis C) ?: Not Menopausal: Yes Past Surgical History Abdominal Surgery: Yes (INGUINAL HERNIA REPAIR) AICD: No Arteriovenous Shunt: No Body Medical Devices: right shoulder plates and screws along with a hernia mesh Cardiac Surgery: No Section: Yes Endocrine Surgery: No Eye Surgery: No Genitourinary Surgery: No Gynecologic Surgery: Yes (HYSTERECTOMY, ) Hysterectomy: Yes Insulin Pump: No Joint Replacement: No Neurologic Surgery: No Oral Surgery: Yes (dentures) Pacemaker: No Thoracic Surgery: No Other Surgery: Yes (R shoulder ORIF April 03) Social History Alcohol Use: No Tobacco Use: No (QUIT 05/08/2017) Substance Use: No Allergies-Medications (Allergen,Severity, Reaction): Coded Allergies: Influenza Virus Vaccines (Unverified Allergy, Severe, Respiratory Failure , 07/20/17) sulfamethoxazole (Unverified Allergy, Severe, SKIN PROBLEMS, 07/20/17) trimethoprim (Unverified Allergy, Severe, SKIN PROBLEMS, 07/20/17) Reported Meds & Prescriptions Reported Meds & Active Scripts Active Adult Aspirin EC Low Strength (Aspirin) 81 Mg Tabec 81 Mg PO DAILY Klor-Con 10 (Potassium Chloride) 10 Meq Tab 10 Meq PO DAILY 30 Days Lisinopril 20 Mg Tab 20 Mg PO BID 30 Days Pantoprazole (Pantoprazole Sodium) 40 Mg Tab 40 Mg PO DAILY 1 Days Reported Carafate (Sucralfate) 1 Gram Tab 1 Gm PO BID PRN On empty stomach Hydrochlorothiazide 12.5 Mg Tab 12.5 Mg PO DAILY Plavix (Clopidogrel Bisulfate) 75 Mg Tab 75 Mg PO DAILY Trazodone (Trazodone HCl) 150 Mg Tablet 150 Mg PO HS Simvastatin 20 Mg Tab 20 Mg PO DAILY Wellbutrin Xl 24 HR (Bupropion HCl) 300 Mg Tab 300 Mg PO DAILY Losartan (Losartan Potassium) 50 Mg Tab 50 Mg PO DAILY Morphine ER (Morphine Sulfate) 30 Mg Tab 30 Mg PO TID Methocarbamol 500 Mg Tab 500 Mg PO Q6HR PRN Zoloft (Sertraline HCl) 100 Mg Tab 100 Mg PO BID Dicyclomine (Dicyclomine HCl) 10 Mg Cap 10 Mg PO BID Centrum (Multiple Vitamins W/ Minerals) 1 Chew 1 Tab PO DAILY Alprazolam 2 Mg Tab 2 Mg PO QID PRN Review of Systems Except as stated in HPI: all other systems reviewed are Neg Skin: Positive Other (sacral decubitus, right ankle wound) Neurologic: Positive: Paresthesia (right side) Physical Exam Narrative GENERAL: Thin, well-developed, alert female. Resting comfortably in no acute distress. SKIN: Warm and dry. Half dollar sized sacral decubitus, full-thickness, no induration, foul odor or drainage or erythema noted. Right ankle wound, no erythema, induration, foul odor or drainage noted. HEAD: Atraumatic. Normocephalic. EYES: Pupils equal and round. No scleral icterus. No injection or drainage. ENT: No nasal bleeding or discharge. Mucous membranes pink and moist. NECK: Trachea midline. No JVD. CARDIOVASCULAR: Regular rate and rhythm. RESPIRATORY: No accessory muscle use. Clear to auscultation. Breath sounds equal bilaterally. GASTROINTESTINAL: Abdomen soft, non-tender, nondistended. Hepatic and splenic margins not palpable. MUSCULOSKELETAL: Extremities without clubbing, cyanosis, or edema. No obvious deformities. NEUROLOGICAL: Awake and alert. No obvious cranial nerve deficits. Motor grossly within normal limits. Five out of 5 muscle strength in the left arms and legs. Normal speech. Residual right-sided upper and lower extremity weakness PSYCHIATRIC: Appropriate mood and affect; insight and judgment normal. Data Data Last Documented VS Vital Signs Date Time Temp Pulse Resp B/P (MAP) Pulse Ox O2 Delivery O2 Flow Rate FiO2 07/20/17 19:25 70 18 124/81 (95) 99 Room Air 07/20/17 16:46 97.8 Orders Orders Complete Blood Count With Diff (07/20/17 15:51) Comprehensive Metabolic Panel (07/20/17 15:51) Lactic Acid Sepsis Protocol (07/20/17 15:51) Chest, Single Ap (07/20/17 15:51) Blood Culture (07/20/17 15:51) Iv Access Insert/Monitor (07/20/17 15:51) Oxygen Administration (07/20/17 15:51) Oximetry (07/20/17 15:51) Urinalysis - C+S If Indicated (07/20/17 15:51) Ct Brain W/O Iv Contrast(Rout) (07/20/17 ) Wound Care (07/20/17 17:55) Admit Order (Ed Use Only) (07/20/17 22:22) Labs Laboratory Tests Test 07/20/17 16:10 07/20/17 16:15 Urine Color YELLOW Urine Turbidity CLEAR Urine pH 5.5 Urine Specific [place] 1.012 Urine Protein 30 mg/dL Urine Glucose (UA) NEG mg/dL Urine Ketones NEG mg/dL Urine Occult Blood TRACE Urine Nitrite NEG Urine Bilirubin NEG Urine Urobilinogen LESS THAN 2.0 MG/DL Urine Leukocyte Esterase TRACE Urine RBC 10 /hpf Urine WBC 3 /hpf Urine Squamous Epithelial Cells 1 /hpf Urine Bacteria RARE /hpf Urine Hyaline Casts 6 /lpf Urine Mucus FEW /lpf Microscopic Urinalysis Comment CULT NOT INDICATED White Blood Count 4.8 TH/MM3 Red Blood Count 3.86 MIL/MM3 Hemoglobin 9.8 GM/DL Hematocrit 31.3 % Mean Corpuscular Volume 81.2 FL Mean Corpuscular Hemoglobin 25.5 PG Mean Corpuscular Hemoglobin Concent 31.4 % Red Cell Distribution Width 20.3 % Platelet Count 402 TH/MM3 Mean Platelet Volume 7.4 FL Neutrophils (%) (Auto) 61.8 % Lymphocytes (%) (Auto) 33.0 % Monocytes (%) (Auto) 4.2 % Eosinophils (%) (Auto) 0.1 % Basophils (%) (Auto) 0.9 % Neutrophils # (Auto) 3.0 TH/MM3 Lymphocytes # (Auto) 1.6 TH/MM3 Monocytes # (Auto) 0.2 TH/MM3 Eosinophils # (Auto) 0.0 TH/MM3 Basophils # (Auto) 0.0 TH/MM3 CBC Comment DIFF FINAL Differential Comment Blood Urea Nitrogen 24 MG/DL Creatinine 0.91 MG/DL Random Glucose 67 MG/DL Total Protein 6.3 GM/DL Albumin 2.1 GM/DL Calcium Level 8.1 MG/DL Alkaline Phosphatase 91 U/L Aspartate Amino Transf (AST/SGOT) 93 U/L Alanine Aminotransferase (ALT/SGPT) 21 U/L Total Bilirubin 0.5 MG/DL Sodium Level 141 MEQ/L Potassium Level 3.4 MEQ/L Chloride Level 104 MEQ/L Carbon Dioxide Level 29.8 MEQ/L Anion Gap 7 MEQ/L Estimat Glomerular Filtration Rate 64 ML/MIN Lactic Acid Level 1.6 mmol/L [facility] Medical Decision Making Medical Screen Exam Complete: Yes Emergency Medical Condition: Yes Interpretation(s) Vital Signs Date Time Temp Pulse Resp B/P (MAP) Pulse Ox O2 Delivery O2 Flow Rate FiO2 07/20/17 16:46 97.8 64 17 134/62 (86) 97 Room Air 07/20/17 16:46 97 Room Air 07/20/17 16:46 64 16 97 Room Air 07/20/17 16:46 97.8 64 17 134/62 (86) 97 Room Air 07/20/17 15:40 97.8 95 16 96/59 (71) 95 Laboratory Tests Test 07/20/17 16:10 07/20/17 16:15 Urine Color YELLOW Urine Turbidity CLEAR Urine pH 5.5 Urine Specific [place] 1.012 Urine Protein 30 mg/dL Urine Glucose (UA) NEG mg/dL Urine Ketones NEG mg/dL Urine Occult Blood TRACE Urine Nitrite NEG Urine Bilirubin NEG Urine Urobilinogen LESS THAN 2.0 MG/DL Urine Leukocyte Esterase TRACE Urine RBC 10 /hpf Urine WBC 3 /hpf Urine Squamous Epithelial Cells 1 /hpf Urine Bacteria RARE /hpf Urine Hyaline Casts 6 /lpf Urine Mucus FEW /lpf Microscopic Urinalysis Comment CULT NOT INDICATED White Blood Count 4.8 TH/MM3 Red Blood Count 3.86 MIL/MM3 Hemoglobin 9.8 GM/DL Hematocrit 31.3 % Mean Corpuscular Volume 81.2 FL Mean Corpuscular Hemoglobin 25.5 PG Mean Corpuscular Hemoglobin Concent 31.4 % Red Cell Distribution Width 20.3 % Platelet Count 402 TH/MM3 Mean Platelet Volume 7.4 FL Neutrophils (%) (Auto) 61.8 % Lymphocytes (%) (Auto) 33.0 % Monocytes (%) (Auto) 4.2 % Eosinophils (%) (Auto) 0.1 % Basophils (%) (Auto) 0.9 % Neutrophils # (Auto) 3.0 TH/MM3 Lymphocytes # (Auto) 1.6 TH/MM3 Monocytes # (Auto) 0.2 TH/MM3 Eosinophils # (Auto) 0.0 TH/MM3 Basophils # (Auto) 0.0 TH/MM3 CBC Comment DIFF FINAL Differential Comment Blood Urea Nitrogen 24 MG/DL Creatinine 0.91 MG/DL Random Glucose 67 MG/DL Total Protein 6.3 GM/DL Albumin 2.1 GM/DL Calcium Level 8.1 MG/DL Alkaline Phosphatase 91 U/L Aspartate Amino Transf (AST/SGOT) 93 U/L Alanine Aminotransferase (ALT/SGPT) 21 U/L Total Bilirubin 0.5 MG/DL Sodium Level 141 MEQ/L Potassium Level 3.4 MEQ/L Chloride Level 104 MEQ/L Carbon Dioxide Level 29.8 MEQ/L Anion Gap 7 MEQ/L Estimat Glomerular Filtration Rate 64 ML/MIN Lactic Acid Level 1.6 mmol/L Vital Signs Date Time Temp Pulse Resp B/P (MAP) Pulse Ox O2 Delivery O2 Flow Rate FiO2 07/20/17 16:46 97.8 64 17 134/62 (86) 97 Room Air 07/20/17 16:46 97 Room Air 07/20/17 16:46 64 16 97 Room Air 07/20/17 16:46 97.8 64 17 134/62 (86) 97 Room Air 07/20/17 15:40 97.8 95 16 96/59 (71) 95 Differential Diagnosis Metabolic abnormality versus noncompliance versus medication side effects versus contusion versus hemorrhage versus other Narrative Course Patient's 52-year-old female that presented for evaluation of weakness on the advice for home health nurse. Patient has been seen and evaluated several times in the emergency department and is well known. Patient appears well, she states that she is feeling well. She is on multiple medications that could cause her to appear weak and drowsy, including Xanax and hydrocodone. Additionally these medications may be increasing her risk for falls. Patient has decubitus on the sacrum does not appear infected, it appears well cared for as does the one on her right ankle. Labs and imaging ordered and pending. Patient's vital signs are stable. CBC with no acute abnormality Chemistry with potassium of 3.4 Lactic acid 1.6 Urinalysis is not indicative of urinary tract infection Chest x-ray read by the radiologist shows small right-sided effusion and atelectasis. This is stable when compared to prior. There are no acute findings in a fight on the CT of the brain, it does show an area of old infarct. At this point patient will be discharged home, she is strongly encouraged once again to maintain compliance with using her wheelchair and walker. She was advised that narcotic pain medications and benzodiazepines increase her risk for falls. She was encouraged to follow up with her primary doctor. She was encouraged to return to emergency department for any new or worsening symptoms. Discussed findings with my attending physician. Patient stable for discharge. Patient's was also seen and evaluated in the emergency department this evening. Subsequently admitted to the hospital. He is patient's sole caregiver. For this reason patient will be admitted to to the hospital as she is unable to completely care for herself at home. Discussed with Dr. Malagon who accepted admission. Diagnosis Primary Impression: Fall Qualified Codes: W19.XXXA - Unspecified fall, initial encounter Additional Impressions: Hemiparesis affecting right side as late effect of cerebrovascular accident ( CVA) Stage II pressure ulcer of sacral region Impaired mobility and activities of daily living Admitting Information Admitting Physician Requests: Observation Med/Other Pt SpecificInfo: No Change to Meds Condition: Stable Laurita Walls Jul 20, 2017 17:43
--- NOTE | 2017-07-20 17:43 | RADRPT ---
EXAM DATE/TIME: 07/20/2017 17:33 [facility] COMPARISON: CT CERVICAL SPINE W/O CONTRAST, June 25, 2017, 18:36. INDICATIONS : Patient fell, hitting head. RADIATION DOSE: 28.84 CTDIvol (mGy) MEDICAL HISTORY : Cardiovascular disease. Hypertension. Lupus.Hep C SURGICAL HISTORY : Hysterectomy. ENCOUNTER: Initial ACUITY: 1 day PAIN SCALE: 10/10 LOCATION: cranial TECHNIQUE: Multiple contiguous axial images were obtained of the head. Using automated exposure control and adj ustment of the mA and/or kV according to patient size, radiation dose was kept as low as reasonably a chievable to obtain optimal diagnostic quality images. DICOM format image data is available electro nically for review and comparison. FINDINGS: CEREBRUM: The ventricles are normal for age. No evidence of midline shift, mass lesion, hemorrhage or acute in farction. No extra-axial fluid collections are seen. POSTERIOR FOSSA: There is an area decreased attenuation in the randy suggesting an old area of infarct. EXTRACRANIAL: The visualized portion of the orbits is intact. 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 SKULL: The calvaria is intact. No evidence of skull fracture. CONCLUSION: 1. There is an area of encephalomalacia in the randy suggesting an old area of infarct. 2. No acute intracranial abnormality is identified. 3. 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 Stephen Serrano MD on July 20, 2017 at 17:40 Board Certified Radiologist. This report was verified electronically.
[2017-07-20] MEDS ORDERED: SIMV20TA PO (17:49)
[2017-07-20] MEDS ORDERED: METH500T3 PO (17:49)
[2017-07-20] MEDS ORDERED: TRAZ1TAB45 PO (17:49)
[2017-07-20] MEDS ORDERED: ZOLO100T PO (17:49)
[2017-07-20] MEDS ORDERED: ALPR2TAB3 PO (17:49)
[2017-07-20] MEDS ORDERED: DICY10CA12 PO (17:49)
[2017-07-20] MEDS ORDERED: CARA1TAB6 PO (17:49)
[2017-07-20] MEDS ORDERED: CENTCHW4 PO (17:49)
[2017-07-20] MEDS ORDERED: WELLTAB39 PO (17:49)
[2017-07-20] MEDS ORDERED: HYDR12.56 PO (17:49)
[2017-07-20] MEDS ORDERED: LOSA50TA PO (17:49)
[2017-07-20] MEDS ORDERED: MORP1TAB25 PO (17:49)
[2017-07-20] MEDS ORDERED: PLAV75TA29 PO (17:49)
[2017-07-20 19:25] VITALS: BP 124/81; PULSE 70; RESP 18; O2SAT 99
[2017-07-20] MEDS ORDERED: ONDANSETRON HCL 4 MG/2 ML VIAL IVP PRN (22:30)
[2017-07-20] MEDS ORDERED: SODIUM CHLORIDE 0.9% FLUSH 10 ML FLUSH IV FLUSH PRN (22:30)
[2017-07-20] MEDS ORDERED: POTASSIUM CHLORIDE 20 MEQ CONTROLLED RELEASE TAB PO ONE (22:30)
[2017-07-20] MEDS ORDERED: LACTULOSE SYRUP 20 GM/30 ML CUP PO PRN (22:30)
[2017-07-20] MEDS ORDERED: SENNOSIDES 8.6 MG TAB PO PRN (22:30)
[2017-07-20] MEDS ORDERED: ACETAMINOPHEN 325 MG TAB PO PRN (22:30)
--- NOTE | 2017-07-20 22:54 | HHI.HP ---
HPI Service [facility] Primary Care Physician Unknown Admission Diagnosis IMPAIRED ABILITY TO CARE FOR SELF Diagnoses: Chief Complaint: Unable to care for self Travel History International Travel<30 Days: No Contact w/Intl Traveler <30 Da: No Traveled to Known Affected Are: No History of Present Illness 52 y/o female with a history CVA with right sided paralysis, HTN, HLD, Lupus, anxiety and depression was sent to the ED by her home health nurse for weakness evaluation. Patient states she has been home for about 3 weeks with home health care with PT/OT visits, and the nurse today came and said her and her looked very weak. She states last night she fell off the toilet and when her tried to help her up he fell on top of her. He was unable to get up himself so the both laid on the ground for about 5 hours before he was unable to get up. She states she hit her head but denies any LOC. She also denies any chest pain, sob, fever or chills. She does have a sacral wound and a wound to her right ankle that she states was there before she was discharged. Patient states she has been trying to eat well at home but can not afford ensure shakes to help increase her calories. She states she needs her to care for her at home or she can not go home due to the paralysis from the CVA. She does use a walker at home. Review of Systems Except as stated in HPI: all other systems reviewed are Neg Past Family Social History Past Medical History CVA with right sided paralysis HTN HLD Lupus Anxiety Depression Past Surgical History Hernia repair Hysterectomy Right shoulder ORIF Pilonidal cyst removal Reported Medications Reported Meds & Active Scripts Active Adult Aspirin EC Low Strength (Aspirin) 81 Mg Tabec 81 Mg PO DAILY Klor-Con 10 (Potassium Chloride) 10 Meq Tab 10 Meq PO DAILY 30 Days Lisinopril 20 Mg Tab 20 Mg PO BID 30 Days Pantoprazole (Pantoprazole Sodium) 40 Mg Tab 40 Mg PO DAILY 1 Days Reported Carafate (Sucralfate) 1 Gram Tab 1 Gm PO BID PRN On empty stomach Hydrochlorothiazide 12.5 Mg Tab 12.5 Mg PO DAILY Plavix (Clopidogrel Bisulfate) 75 Mg Tab 75 Mg PO DAILY Trazodone (Trazodone HCl) 150 Mg Tablet 150 Mg PO HS Simvastatin 20 Mg Tab 20 Mg PO DAILY Wellbutrin Xl 24 HR (Bupropion HCl) 300 Mg Tab 300 Mg PO DAILY Losartan (Losartan Potassium) 50 Mg Tab 50 Mg PO DAILY Morphine ER (Morphine Sulfate) 30 Mg Tab 30 Mg PO TID Methocarbamol 500 Mg Tab 500 Mg PO Q6HR PRN Zoloft (Sertraline HCl) 100 Mg Tab 100 Mg PO BID Dicyclomine (Dicyclomine HCl) 10 Mg Cap 10 Mg PO BID Centrum (Multiple Vitamins W/ Minerals) 1 Chew 1 Tab PO DAILY Alprazolam 2 Mg Tab 2 Mg PO QID PRN Allergies: Coded Allergies: Influenza Virus Vaccines (Unverified Allergy, Severe, Respiratory Failure , 07/20/17) sulfamethoxazole (Unverified Allergy, Severe, SKIN PROBLEMS, 07/20/17) trimethoprim (Unverified Allergy, Severe, SKIN PROBLEMS, 07/20/17) Active Ordered Medications Current Medications Medications (Trade) Dose Ordered Sig/Neville Route Start Time Stop Time Status Last Admin (NS Flush) 2 ml UNSCH PRN IV FLUSH 07/20/17 22:30 (NS Flush) 2 ml BID IV FLUSH 07/21/17 09:00 (Tylenol) 650 mg Q4H PRN PO 07/20/17 22:30 (Zofran Inj) 4 mg Q6H PRN IVP 07/20/17 22:30 (Senokot) 17.2 mg Q12H PRN PO 07/20/17 22:30 (Lactulose Liq) 30 ml DAILY PRN PO 07/20/17 22:30 Sodium Chloride 1,000 ml @ 84 mls/hr [id number] IV 07/20/17 23:00 Family History Mom: CVA, DM Brother: DM Social History Tobacco use: Quit in March 2017 Alcohol use: Denies Illicit drug use: Denies Patient lives at home with her , and she is dependent on him. Physical Exam Vital Signs Vital Signs Date Time Temp Pulse Resp B/P (MAP) Pulse Ox O2 Delivery O2 Flow Rate FiO2 07/20/17 19:25 70 18 124/81 (95) 99 Room Air 07/20/17 16:46 97.8 64 17 134/62 (86) 97 Room Air 07/20/17 16:46 97 Room Air 07/20/17 16:46 64 16 97 Room Air 07/20/17 16:46 97.8 64 17 134/62 (86) 97 Room Air 07/20/17 15:40 97.8 95 16 96/59 (71) 95 Physical Exam GENERAL: This is a thin, malnourished patient in NAD SKIN: Stage 4 Sacral decub serosanguineous drainage, Stage 3 right ankle ulcer with yellow slough drainage HEAD: Atraumatic. Normocephalic. Temporal wasting noted EYES: Pupils equal round and reactive. ENT: Nose without bleeding, purulent drainage or septal hematoma. Airway patent. NECK: Trachea midline. No JVD. CARDIOVASCULAR: Regular rate and rhythm without murmurs, gallops, or rubs. RESPIRATORY: Clear to auscultation. Breath sounds equal bilaterally. No wheezes , rales, or rhonchi. GASTROINTESTINAL: Abdomen soft, non-tender, nondistended. BS x 4 MUSCULOSKELETAL: Right sided residual weakness, No calf tenderness. NEUROLOGICAL: Awake and alert. Motor and sensory grossly within normal limits. Normal speech. Laboratory Laboratory Tests Test 07/20/17 16:10 07/20/17 16:15 Urine Color YELLOW Urine Turbidity CLEAR Urine pH 5.5 Urine Specific [place] 1.012 Urine Protein 30 Urine Glucose (UA) NEG Urine Ketones NEG Urine Occult Blood TRACE Urine Nitrite NEG Urine Bilirubin NEG Urine Urobilinogen LESS THAN 2.0 Urine Leukocyte Esterase TRACE Urine RBC 10 Urine WBC 3 Urine Squamous Epithelial Cells 1 Urine Bacteria RARE Urine Hyaline Casts 6 Urine Mucus FEW Microscopic Urinalysis Comment CULT NOT INDICATED White Blood Count 4.8 Red Blood Count 3.86 Hemoglobin 9.8 Hematocrit 31.3 Mean Corpuscular Volume 81.2 Mean Corpuscular Hemoglobin 25.5 Mean Corpuscular Hemoglobin Concent 31.4 Red Cell Distribution Width 20.3 Platelet Count 402 Mean Platelet Volume 7.4 Neutrophils (%) (Auto) 61.8 Lymphocytes (%) (Auto) 33.0 Monocytes (%) (Auto) 4.2 Eosinophils (%) (Auto) 0.1 Basophils (%) (Auto) 0.9 Neutrophils # (Auto) 3.0 Lymphocytes # (Auto) 1.6 Monocytes # (Auto) 0.2 Eosinophils # (Auto) 0.0 Basophils # (Auto) 0.0 CBC Comment DIFF FINAL Differential Comment Blood Urea Nitrogen 24 Creatinine 0.91 Random Glucose 67 Total Protein 6.3 Albumin 2.1 Calcium Level 8.1 Alkaline Phosphatase 91 Aspartate Amino Transf (AST/SGOT) 93 Alanine Aminotransferase (ALT/SGPT) 21 Total Bilirubin 0.5 Sodium Level 141 Potassium Level 3.4 Chloride Level 104 Carbon Dioxide Level 29.8 Anion Gap 7 Estimat Glomerular Filtration Rate 64 Lactic Acid Level 1.6 Date/Time Source Procedure Growth Status 07/20/17 16:19 Blood Peripheral Aerobic Blood Culture Pending Received 07/20/17 16:19 Blood Peripheral Anaerobic Blood Culture Pending Received Result Diagram: 07/20/17 1615 07/20/17 1615 Imaging Last Impressions Chest X-Ray 07/20/17 1551 Signed Impressions: Service Date/Time: Thursday, July 20, 2017 15:56 - CONCLUSION: 1. Small right-sided effusion and atelectasis. Stable compared to previous. Stephen Serrano MD Head CT 07/20/17 0000 Signed Impressions: Service Date/Time: Thursday, July 20, 2017 17:33 - CONCLUSION: 1. There is an area of encephalomalacia in the randy suggesting an old area of infarct. 2. No acute intracranial abnormality is identified. 3. 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 MD Melany Esparzai VTE Risk Assessment Caprini VTE Risk Assessment: Mod/High Risk (score >= 2) Caprini Risk Assessment Model Point Value = 1 Point Value = 2 Point Value = 3 Point Value = 5 Age 41-60 Minor surgery BMI > 25 kg/m2 Swollen legs Varicose veins or History of unexplained or recurrent spontaneous Oral contraceptives or hormone replacement Sepsis (< 1 month) Serious lung disease, including pneumonia (< 1 month) Abnormal pulmonary function Acute myocardial infarction Congestive heart failure (< 1 month) History of inflammatory bowel disease Medical patient at bed rest Age 61-74 Arthroscopic surgery Major open surgery (> 45 min) Laparoscopic surgery (> 45 min) Malignancy Confined to bed (> 72 hours) Immobilizing plaster cast Central venous access Age >= 75 History of VTE Family history of VTE Factor V Leiden Prothrombin [id number] Lupus anticoagulant Anticardiolipin antibodies Elevated serum homocysteine Heparin-induced thrombocytopenia Other congenital or acquired thrombophilia Stroke (< 1 month) Elective arthroplasty Hip, pelvis, or leg fracture Acute spinal cord injury (< 1 month) Prophylaxis Regimen Total Risk Factor Score Risk Level Prophylaxis Regimen 0-1 Low Early ambulation 2 Moderate Order ONE of the following: *Sequential Compression Device (SCD) *Heparin 5000 units SQ BID 3-4 Higher Order ONE of the following medications: *Heparin 5000 units SQ TID *Enoxaparin/Lovenox 40 mg SQ daily (WT < 150 kg, CrCl > 30 mL/min) *Enoxaparin/Lovenox 30 mg SQ daily (WT < 150 kg, CrCl > 10-29 mL/min) *Enoxaparin/Lovenox 30 mg SQ BID (WT < 150 kg, CrCl > 30 mL/min) AND/OR *Sequential Compression Device (SCD) 5 or more Highest Order ONE of the following medications: *Heparin 5000 units SQ TID (Preferred with Epidurals) *Enoxaparin/Lovenox 40 mg SQ daily (WT < 150 kg, CrCl > 30 mL/min) *Enoxaparin/Lovenox 30 mg SQ daily (WT < 150 kg, CrCl > 10-29 mL/min) *Enoxaparin/Lovenox 30 mg SQ BID (WT < 150 kg, CrCl > 30 mL/min) AND *Sequential Compression Device (SCD) Assessment and Plan Problem List: (1) Protein calorie malnutrition ICD Code: E46 - Unspecified protein-calorie malnutrition (2) Total self-care deficit ICD Code: R41.89 - Other symptoms and signs involving cognitive functions and awareness (3) Hypokalemia ICD Code: E87.6 - Hypokalemia Status: Acute (4) HTN (hypertension) ICD Code: I10 - Essential (primary) hypertension Status: Resolved (5) Impaired mobility and activities of daily living ICD Code: Z74.09 - Other reduced mobility Status: Acute Assessment and Plan 52 y/o female with a history CVA with right sided paralysis, HTN, HLD, Lupus, anxiety and depression was sent to the ED by her home health nurse for weakness evaluation. Total self care deficit, patient unable to be left alone at home, unable to care for self, patient suffered a fall at home Head CT reviewed and shows no acute abnormalities -Consult case management for possible placement -PT eval and treat Protein Calorie malnutrition, patient is thin with temporal wasting low albumin , and unhealing wounds, albumin 2.1, wt 48kg Sacral decub stage 4, and right ankle ulcer stage 3 -Ensure shakes with meals -Consult wound care for recommendations Elevated BUN, suspect mild dehydration, BUN 24 -IVF for hydration -Labs in AM Hypokalemia, potassium 3.4 -Supplementation given, labs in am, replace as needed HTN, chronic, currently stable: Resume home medications, monitor vitals DVT prophylaxis: SCDs, eliquis The exam, history, and the medical decision-making described in the above note were completed with the assistance of the mid-level provider. I reviewed and agree with the findings presented. I attest that I had a [id number] encounter with the patient on the same day, and personally performed and documented my assessment and findings in the medical record. Patient admits that she is very frail and rely on her to care for her. He is admitted to the Hospital. GENERAL: Cachectic patient in NAD SKIN: Stage 4 Sacral ulcer with serosanguineous drainage, right ankle ulcer. CARDIOVASCULAR: Regular rate and rhythm without murmurs, gallops, or rubs. RESPIRATORY: Clear to auscultation. Breath sounds equal bilaterally. No wheezes , rales, or rhonchi. GASTROINTESTINAL: Abdomen soft, non-tender, nondistended. BS x 4 MUSCULOSKELETAL: Right sided weakness noted. Not new. NEUROLOGICAL: Awake and alert. Normal speech. Plan is to optimize the patient's medications and nutrition here. She needs a SNF. Plan detailed as above. Discussed Condition With Patient Kelly Garibay Jul 20, 2017 22:54 Dolores Malagon MD Jul 21, 2017 01:14
[2017-07-20] MEDS ORDERED: SODIUM CHLOR 0.9% 1000 ML INJ 1,000 ML IV SCH (23:00)
[2017-07-20] MEDS ORDERED: SUCRALFATE 1 GM TAB PO PRN (23:45)
[2017-07-20] MEDS: NS + KCL 20 MEQ INJ 1,000 ML IV SCH (23:59)
[2017-07-21] VITALS (7 sets, daily range): BP systolic 126–139; BP diastolic 58–72; PULSE 65–84; RESP 16–18; TEMP 97.7–98.6; O2SAT 95–98
[2017-07-21 07:50] LABS: AUTOMATED NEUTROPHIL # 2.1 TH/MM3 (1.8-7.7); BASOPHIL % 0.6 % (0.0-2.0); EOSINOPHIL % 0.4 % (0.0-4.0); HEMATOCRIT 28.2 % (35.0-46.0); HEMO FLAGS DIFF FINAL; LYMPH % 43.2 % (9.0-44.0); LYMPHOCYTE # 1.7 TH/MM3 (1.0-4.8); MEAN CELL VOLUME 81.9 FL (80.0-100.0); MEAN CORPUSCULAR HEMOGLOBIN 25.8 PG (27.0-34.0); MEAN CORPUSCULAR HGB CONC 31.5 % (32.0-36.0); MONO % 3.3 % (0.0-8.0); NEUT % 52.5 % (16.0-70.0); PLATELET COUNT 364 TH/MM3 (150-450); RED BLOOD COUNT 3.44 MIL/MM3 (4.00-5.30)
[2017-07-21 08:01] LABS: ALT (GPT) 13 U/L (10-53); ANION GAP 7 MEQ/L (5-15); AST (GOT) 58 U/L (15-37); BICARBONATE 28.1 MEQ/L (21.0-32.0); BLOOD UREA NITROGEN 24 MG/DL (7-18); CHLORIDE 106 MEQ/L (98-107); GLOMERULAR FILTRATION RATE 69 ML/MIN (>89); POTASSIUM 3.6 MEQ/L (3.5-5.1); SODIUM (NA) 141 MEQ/L (136-145)
[2017-07-21 08:04] LABS: ALKALINE PHOSPHATASE 79 U/L (45-117); TOTAL BILIRUBIN ADULT 0.2 MG/DL (0.2-1.0)
[2017-07-21] MEDS: SODIUM CHLORIDE 0.9% FLUSH 10 ML FLUSH IV FLUSH SCH ×2 (09:23→22:29)
[2017-07-21] MEDS: HYDROCHLOROTHIAZIDE 12.5 MG CAP PO SCH (09:25)
[2017-07-21] MEDS: PRAVASTATIN SOD 40 MG TAB PO SCH (09:25)
[2017-07-21] MEDS: ASPIRIN EC 81 MG TABEC PO SCH (09:25)
[2017-07-21] MEDS: LOSARTAN 50 MG TAB PO SCH (09:25)
[2017-07-21] MEDS: buPROPion HCL 150 MG SUSTAINED RELEASE TAB PO SCH ×2 (09:25→22:29)
[2017-07-21] MEDS: LISINOPRIL 20 MG TAB PO SCH ×2 (09:25→22:27)
[2017-07-21] MEDS: PANTOPRAZOLE SOD 40 MG DELAYED RELEASE TAB PO SCH (09:25)
[2017-07-21] MEDS: APIXABAN 5 MG TABLET PO SCH ×2 (09:25→22:27)
[2017-07-21] MEDS: SERTRALINE HCL 100 MG TAB PO SCH ×2 (09:25→22:29)
[2017-07-21] MEDS: CLOPIDOGREL 75 MG TAB PO SCH (09:26)
[2017-07-21] MEDS: DICYCLOMINE HCL 10 MG CAP PO SCH ×2 (09:29→22:29)
[2017-07-21] MEDS: NS + KCL 20 MEQ INJ 1,000 ML IV SCH ×2 (10:32→22:34)
[2017-07-21] MEDS ORDERED: ACETAMINOPHEN 325 MG TAB PO PRN (12:00)
[2017-07-21] MEDS ORDERED: ACETAMINOPHEN/HYDROcodone 325 MG/5 MG TAB PO PRN (12:00)
--- NOTE | 2017-07-21 12:08 | HHI.PR ---
Subjective Remarks Follow up for fall, inability to care for self, total self care deficit. The patient reports some pain at the site of her ulcers, worse on the buttocks. Denies any other medical complaints including no headache, cough, chest pain, shortness of breath, abdominal or urinary complaints. She is hungry and wants larger meals. She reports her is a patient here in the hospital after their fall. She states her does all of the meal prep and chemistry technician. She states she can get from one room to another by herself if she really has to. She agrees she cannot take care of herself alone and is agreeable to placement if needed. Objective Vitals Vital Signs Date Time Temp Pulse Resp B/P (MAP) Pulse Ox O2 Delivery O2 Flow Rate FiO2 07/21/17 08:41 98.3 71 16 136/67 (90) 98 07/21/17 03:55 98.2 68 18 128/65 (86) 98 07/21/17 00:03 98.0 68 18 132/67 (88) 97 07/20/17 23:45 07/20/17 19:25 70 18 124/81 (95) 99 Room Air 07/20/17 16:46 97.8 64 17 134/62 (86) 97 Room Air 07/20/17 16:46 97 Room Air 07/20/17 16:46 64 16 97 Room Air 07/20/17 16:46 97.8 64 17 134/62 (86) 97 Room Air 07/20/17 15:40 97.8 95 16 96/59 (71) 95 Result Diagram: 07/21/17 0705 07/21/17 0705 Imaging Last Impressions Chest X-Ray 07/20/17 1551 Signed Impressions: Service Date/Time: Thursday, July 20, 2017 15:56 - CONCLUSION: 1. Small right-sided effusion and atelectasis. Stable compared to previous. Stephen Serrano MD Head CT 07/20/17 0000 Signed Impressions: Service Date/Time: Thursday, July 20, 2017 17:33 - CONCLUSION: 1. There is an area of encephalomalacia in the randy suggesting an old area of infarct. 2. No acute intracranial abnormality is identified. 3. 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 Stephen Serrano MD Objective Remarks GENERAL: Thin cachectic appearing female patient in NAD. SKIN: Warm and dry. Stage 4 sacral ulcer with serosanguineous drainage. Right ankle ulcer. HEENT: Normocephalic. Atraumatic.Pupils equal and round. Mucous membranes pink and moist. CARDIOVASCULAR: Regular rate and rhythm. S1, S2 noted. No murmur appreciated. RESPIRATORY: No accessory muscle use. Clear to auscultation. Breath sounds equal bilaterally. GASTROINTESTINAL: Abdomen soft, non-tender, nondistended. Normoactive bowel sounds x4. MUSCULOSKELETAL: No obvious deformities. Extremities without clubbing, cyanosis , or edema. NEUROLOGICAL: Awake and alert. Right sided hemiparesis. Normal speech. PSYCHIATRIC: Appropriate mood and affect; insight and judgment normal. Medications and IVs Current Medications Medications (Trade) Dose Ordered Sig/Neville Route Start Time Stop Time Status Last Admin (NS Flush) 2 ml UNSCH PRN IV FLUSH 07/20/17 22:30 07/20/17 23:59 (NS Flush) 2 ml BID IV FLUSH 07/21/17 09:00 (Tylenol) 650 mg Q4H PRN PO 07/20/17 22:30 (Zofran Inj) 4 mg Q6H PRN IVP 07/20/17 22:30 (Senokot) 17.2 mg Q12H PRN PO 07/20/17 22:30 (Lactulose Liq) 30 ml DAILY PRN PO 07/20/17 22:30 Potassium Chloride/Sodium Chloride 1,000 ml @ 84 mls/hr [id number] IV 07/20/17 23:45 07/21/17 10:32 (Ecotrin Ec) 81 mg DAILY PO 07/21/17 09:00 07/21/17 09:25 (Wellbutrin Sr) 150 mg BID PO 07/21/17 09:00 07/21/17 09:25 (Plavix) 75 mg DAILY PO 07/21/17 09:00 07/21/17 09:26 (Bentyl) 10 mg BID PO 07/21/17 09:00 07/21/17 09:29 (Microzide) 12.5 mg DAILY PO 07/21/17 09:00 07/21/17 09:25 (Prinivil) 20 mg BID PO 07/21/17 09:00 07/21/17 09:25 (Cozaar) 50 mg DAILY PO 07/21/17 09:00 07/21/17 09:25 (Protonix) 40 mg DAILY PO 07/21/17 09:00 07/21/17 09:25 (Zoloft) 100 mg BID PO 07/21/17 09:00 07/21/17 09:25 (Carafate) 1 gm BID PRN PO 07/20/17 23:45 (Pravachol) 40 mg DAILY PO 07/21/17 09:00 07/21/17 09:25 (Desyrel) 150 mg HS PO 07/21/17 21:00 Future Hold (Eliquis) 5 mg BID PO 07/21/17 09:00 07/21/17 09:25 (Tylenol) 650 mg Q6H PRN PO 07/21/17 12:00 ([place] 5-325 Mg) 1 tab Q6H PRN PO 07/21/17 12:00 07/21/17 11:41 A/P Problem List: (1) Protein calorie malnutrition ICD Code: E46 - Unspecified protein-calorie malnutrition (2) Total self-care deficit ICD Code: R41.89 - Other symptoms and signs involving cognitive functions and awareness (3) Hypokalemia ICD Code: E87.6 - Hypokalemia Status: Acute (4) HTN (hypertension) ICD Code: I10 - Essential (primary) hypertension Status: Resolved (5) Impaired mobility and activities of daily living ICD Code: Z74.09 - Other reduced mobility Status: Acute Assessment and Plan 52 y/o female with a history CVA with right sided paralysis, HTN, HLD, Lupus, anxiety and depression was sent to the ED by her home health nurse for weakness evaluation. Total self care deficit: patient unable to be left alone at home, unable to care for self, patient and suffered a fall at home and now is also in the hospital. Head CT reviewed and shows no acute abnormalities -Consult case management for possible placement -PT eval and treat Protein Calorie malnutrition, patient is thin with temporal wasting, low albumin 1.7, BMI 17, weight 48kg, unhealing wounds Sacral decub stage 4, and right ankle ulcer stage 3 -Ensure shakes with meals -Consult wound care for recommendations Elevated BUN, suspect mild dehydration, BUN 24 -IVF for hydration -Repeat labs show mild improvement Hypokalemia, potassium 3.4 -Supplementation given, repeat labs show improvement, K 3.6. HTN, chronic, currently stable: Resume home medications, monitor vitals DVT prophylaxis: SCDs, Eliquis Discharge Planning Patient likely needs placement. Case management to assist with discharge planning. Marcela Posada PA-C Jul 21, 2017 12:08 pm
[2017-07-21] MEDS: MORPHINE SULFATE 30 MG CONTROLLED RELEASE TAB PO SCH ×2 (15:32→22:28)
[2017-07-21] MEDS: ALPRAZolam 1 MG TAB PO PRN (17:00)
[2017-07-21] MEDS ORDERED: traZODone HCL 50 MG TAB PO SCH (21:00)
[2017-07-22] MEDS: ALPRAZolam 1 MG TAB PO PRN ×2 (02:14→22:02)
[2017-07-22 05:32] VITALS: BP 128/68; PULSE 80; RESP 16; TEMP 98.4; O2SAT 97
[2017-07-22] MEDS: MORPHINE SULFATE 30 MG CONTROLLED RELEASE TAB PO SCH ×3 (06:34→21:48)
[2017-07-22 08:33] VITALS: BP 145/71; PULSE 85; RESP 16; TEMP 98.2
[2017-07-22] MEDS: buPROPion HCL 150 MG SUSTAINED RELEASE TAB PO SCH ×2 (08:47→21:48)
[2017-07-22] MEDS: LOSARTAN 50 MG TAB PO SCH (08:47)
[2017-07-22] MEDS: CLOPIDOGREL 75 MG TAB PO SCH (08:48)
[2017-07-22] MEDS: LISINOPRIL 20 MG TAB PO SCH ×2 (08:49→21:48)
[2017-07-22] MEDS: PRAVASTATIN SOD 40 MG TAB PO SCH (08:49)
[2017-07-22] MEDS: PANTOPRAZOLE SOD 40 MG DELAYED RELEASE TAB PO SCH (08:49)
[2017-07-22] MEDS: SERTRALINE HCL 100 MG TAB PO SCH ×2 (08:49→21:48)
[2017-07-22] MEDS: APIXABAN 5 MG TABLET PO SCH ×2 (08:49→21:48)
[2017-07-22] MEDS: SODIUM CHLORIDE 0.9% FLUSH 10 ML FLUSH IV FLUSH SCH ×2 (08:50→21:00)
[2017-07-22] MEDS: ASPIRIN EC 81 MG TABEC PO SCH (08:50)
[2017-07-22] MEDS: DICYCLOMINE HCL 10 MG CAP PO SCH ×2 (08:50→21:46)
[2017-07-22] MEDS: HYDROCHLOROTHIAZIDE 12.5 MG CAP PO SCH (08:50)
--- NOTE | 2017-07-22 10:08 | HHI.PR ---
Subjective Remarks Follow up for fall, inability to care for self. Patient is seen sitting upright in bed, eating breakfast. She has no specific medical complaints. Pain is at baseline secondary to chronic wounds. She is inquiring about wound care. The patient also explains that she was very happy with her [facility] prior to arrival. She states she was doing really well until her fell on her. She states she was able to ambulate without assistance to the bathroom and around the home. However she agrees she likely will not be able to take care of herself on her own. Objective Vitals Vital Signs Date Time Temp Pulse Resp B/P (MAP) Pulse Ox O2 Delivery O2 Flow Rate FiO2 07/22/17 08:33 98.2 85 16 145/71 (95) 07/22/17 05:32 98.4 80 16 128/68 (88) 97 07/21/17 23:40 97.7 81 18 135/63 (87) 96 07/21/17 21:16 98.3 84 18 139/72 (94) 95 07/21/17 17:24 98.0 76 16 126/64 (84) 98 07/21/17 16:34 18 07/21/17 13:24 98.6 65 16 126/58 (80) 96 I/O 07/21/17 07/21/17 07/21/17 07/22/17 07/22/17 07/22/17 07:00 15:00 23:00 07:00 15:00 23:00 Intake Total 924 ml 1250 ml Balance 924 ml 1250 ml Intake Oral 250 ml IV Total 924 ml 1000 ml # Voids 4 4 # Bowel Movements 2 Result Diagram: 07/21/17 0705 07/21/17 0705 Imaging Last Impressions Chest X-Ray 07/20/17 1551 Signed Impressions: Service Date/Time: Thursday, July 20, 2017 15:56 - CONCLUSION: 1. Small right-sided effusion and atelectasis. Stable compared to previous. Stephen Serrano MD Head CT 07/20/17 0000 Signed Impressions: Service Date/Time: Thursday, July 20, 2017 17:33 - CONCLUSION: 1. There is an area of encephalomalacia in the randy suggesting an old area of infarct. 2. No acute intracranial abnormality is identified. 3. 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 Stephen Serrano MD Objective Remarks GENERAL: Thin cachectic appearing female patient in NAD. SKIN: Warm and dry. Stage 4 sacral ulcer. Right ankle ulcer covered with Tegaderm. HEENT: Normocephalic. Atraumatic.Pupils equal and round. Mucous membranes pink and moist. CARDIOVASCULAR: Regular rate and rhythm. S1, S2 noted. No murmur appreciated. RESPIRATORY: No accessory muscle use. Clear to auscultation. Breath sounds equal bilaterally. GASTROINTESTINAL: Abdomen soft, non-tender, nondistended. Normoactive bowel sounds x4. MUSCULOSKELETAL: No obvious deformities. Extremities without clubbing, cyanosis , or edema. NEUROLOGICAL: Awake and alert. Right sided hemiparesis. Normal speech. PSYCHIATRIC: Appropriate mood and affect; insight and judgment normal. Medications and IVs Current Medications Medications (Trade) Dose Ordered Sig/[place] Route Start Time Stop Time Status Last Admin (NS Flush) 2 ml UNSCH PRN IV FLUSH 07/20/17 22:30 07/20/17 23:59 (NS Flush) 2 ml BID IV FLUSH 07/21/17 09:00 07/22/17 08:50 (Tylenol) 650 mg Q4H PRN PO 07/20/17 22:30 (Zofran Inj) 4 mg Q6H PRN IVP 07/20/17 22:30 (Senokot) 17.2 mg Q12H PRN PO 07/20/17 22:30 (Lactulose Liq) 30 ml DAILY PRN PO 07/20/17 22:30 Potassium Chloride/Sodium Chloride 1,000 ml @ 84 mls/hr [id number] IV 07/20/17 23:45 07/21/17 22:34 (Ecotrin Ec) 81 mg DAILY PO 07/21/17 09:00 07/22/17 08:50 (Wellbutrin Sr) 150 mg BID PO 07/21/17 09:00 07/22/17 08:47 (Plavix) 75 mg DAILY PO 07/21/17 09:00 07/22/17 08:48 (Bentyl) 10 mg BID PO 07/21/17 09:00 07/22/17 08:50 (Microzide) 12.5 mg DAILY PO 07/21/17 09:00 07/22/17 08:50 (Prinivil) 20 mg BID PO 07/21/17 09:00 07/22/17 08:49 (Cozaar) 50 mg DAILY PO 07/21/17 09:00 07/22/17 08:47 (Protonix) 40 mg DAILY PO 07/21/17 09:00 07/22/17 08:49 (Zoloft) 100 mg BID PO 07/21/17 09:00 07/22/17 08:49 (Carafate) 1 gm BID PRN PO 07/20/17 23:45 (Pravachol) 40 mg DAILY PO 07/21/17 09:00 07/22/17 08:49 (Desyrel) 150 mg HS PO 07/21/17 21:00 Future Hold (Eliquis) 5 mg BID PO 07/21/17 09:00 07/22/17 08:49 (Tylenol) 650 mg Q6H PRN PO 07/21/17 12:00 (Xanax) 2 mg Q8H PRN PO 07/21/17 14:15 07/22/17 02:14 (Oramorph Sr) 30 mg Q8H PO 07/21/17 15:00 07/22/17 06:34 A/P Problem List: (1) Protein calorie malnutrition ICD Code: E46 - Unspecified protein-calorie malnutrition (2) Total self-care deficit ICD Code: R41.89 - Other symptoms and signs involving cognitive functions and awareness (3) Hypokalemia ICD Code: E87.6 - Hypokalemia Status: Acute (4) HTN (hypertension) ICD Code: I10 - Essential (primary) hypertension Status: Resolved (5) Impaired mobility and activities of daily living ICD Code: Z74.09 - Other reduced mobility Status: Acute Assessment and Plan 52 y/o female with a history CVA with right sided paralysis, HTN, HLD, Lupus, anxiety and depression was sent to the ED by her home health nurse for weakness evaluation. Total self care deficit: patient unable to be left alone at home, unable to care for self, patient and suffered a fall at home and now is also in the hospital. Head CT reviewed and shows no acute abnormalities -Consult case management for possible placement -PT eval and treat Severe Protein Calorie Malnutrition: cachectic, bitemporal wasting, low albumin 1.7, BMI 17, weight 48kg, unhealing wounds Sacral decub stage 4, and right ankle ulcer stage 3, present on admission -Ensure shakes with meals -Consult wound care for recommendations Elevated BUN, suspect mild dehydration, BUN 24 -IVF for hydration -Repeat labs show mild improvement Hypokalemia, potassium 3.4. Supplementation given, repeat labs show improvement , K 3.6. HTN, chronic, currently stable: Resume home medications, monitor vitals Chronic Pain & Anxiety: stable. Continue home meds including Oramorph 30mg po q8h and Xanax 2mg q8h prn (verified on [facility]). Hold patient's Robaxin for now. DVT prophylaxis: Raul Kearns Discharge Planning Patient likely needs placement. Case management to assist with discharge planning. Marcela Posada PA-C Jul 22, 2017 10:08 am
[2017-07-22 11:14] VITALS: BP 116/63; PULSE 79; RESP 16; TEMP 98.6; O2SAT 95
[2017-07-22] MEDS: NS + KCL 20 MEQ INJ 1,000 ML IV SCH ×2 (11:57→21:48)
[2017-07-22 15:44] VITALS: BP 140/73; PULSE 85; RESP 16; TEMP 98; O2SAT 95
[2017-07-22 21:05] VITALS: BP 143/72; PULSE 91; RESP 18; TEMP 98.7; O2SAT 95
[2017-07-23 00:41] VITALS: BP 144/68; PULSE 88; RESP 19; TEMP 98.6; O2SAT 93
[2017-07-23 04:25] VITALS: BP 155/72; PULSE 89; RESP 20; TEMP 98.8; O2SAT 95
[2017-07-23] MEDS: MORPHINE SULFATE 30 MG CONTROLLED RELEASE TAB PO SCH ×3 (06:18→21:48)
[2017-07-23 08:00] VITALS: BP 125/69; PULSE 95; RESP 18; TEMP 98.6; O2SAT 92
[2017-07-23] MEDS: HYDROCHLOROTHIAZIDE 12.5 MG CAP PO SCH (09:00)
--- NOTE | 2017-07-23 09:37 | HHI.PR ---
Subjective Remarks Follow-up for failure to thrive. The patient is seen sitting up eating breakfast. She states that previously she had been able to ambulate unassisted and complete most her ADLs at home. She has been generally weak. She thinks this may be due to anemia because she's been taking iron supplement, but has not been able to afford B12 supplements. She has a history of lupus and feels like she is having a flare. She states that she has adverse reactions to steroids, and states that the only thing that can be done for her flares is " try and keep me comfortable". She complains of generalized pain. Tolerating oral intake. Working with PT. RN reports we are waiting on wound care eval and wounds do not appear infected. Objective Vitals Vital Signs Date Time Temp Pulse Resp B/P (MAP) Pulse Ox O2 Delivery O2 Flow Rate FiO2 07/23/17 08:00 98.6 95 18 125/69 (87) 92 07/23/17 04:25 98.8 89 20 155/72 (99) 95 07/23/17 00:41 98.6 88 19 144/68 (93) 93 07/22/17 21:05 98.7 91 18 143/72 (95) 95 07/22/17 15:44 98.0 85 16 140/73 (95) 95 07/22/17 11:14 98.6 79 16 116/63 (80) 95 I/O 07/22/17 07/22/17 07/22/17 07/23/17 07/23/17 07/23/17 07:00 15:00 23:00 07:00 15:00 23:00 Intake Total 1250 ml 240 ml Balance 1250 ml 240 ml Intake Oral 250 ml 240 ml IV Total 1000 ml # Voids 4 3 4 Result Diagram: 07/21/17 0705 07/21/17 0705 Imaging Last Impressions Chest X-Ray 07/20/17 1551 Signed Impressions: Service Date/Time: Thursday, July 20, 2017 15:56 - CONCLUSION: 1. Small right-sided effusion and atelectasis. Stable compared to previous. Stephen Serrano MD Head CT 07/20/17 0000 Signed Impressions: Service Date/Time: Thursday, July 20, 2017 17:33 - CONCLUSION: 1. There is an area of encephalomalacia in the randy suggesting an old area of infarct. 2. No acute intracranial abnormality is identified. 3. 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 Stephen Serrano MD Objective Remarks GENERAL: Well-developed fair-nourished thin, cachectic, chronically ill- appearing middle-aged female. Appears generally uncomfortable, but in no acute distress. SKIN: Warm and dry. Right heel pressure sore. HEENT: Normocephalic. Pupils equal and round. Mucous membranes pink and moist. CARDIOVASCULAR: Regular rate and rhythm. No murmur appreciated. RESPIRATORY: No accessory muscle use. Clear to auscultation. Breath sounds equal bilaterally. GASTROINTESTINAL: Abdomen soft, non-tender, nondistended. Bowel sounds x4. MUSCULOSKELETAL: No obvious deformities. No clubbing or cyanosis. No edema. NEUROLOGICAL: Awake and alert. Right-sided weakness. Moves left side spontaneously. Normal speech. PSYCHIATRIC: Appropriate mood and affect; insight and judgment normal. A/P Problem List: (1) Protein calorie malnutrition ICD Code: E46 - Unspecified protein-calorie malnutrition Status: Chronic (2) Total self-care deficit ICD Code: R41.89 - Other symptoms and signs involving cognitive functions and awareness Status: Acute (3) Hypokalemia ICD Code: E87.6 - Hypokalemia Status: Resolved (4) HTN (hypertension) ICD Code: I10 - Essential (primary) hypertension Status: Chronic (5) Impaired mobility and activities of daily living ICD Code: Z74.09 - Other reduced mobility Status: Acute Assessment and Plan 52 y/o female with a history CVA with right sided paralysis, HTN, HLD, Lupus, anxiety and depression was sent to the ED by her home health nurse for weakness evaluation. Total self care deficit: patient unable to be left alone at home, unable to care for self, patient and suffered a fall at home and now is also in the hospital. Head CT reviewed and shows no acute abnormalities -Consulted case management for possible placement -Continue daily PT while admitted Generalized weakness: Likely due to chronic medical conditions -Check B12 and vitamin D level Severe Protein Calorie Malnutrition: cachectic, bitemporal wasting, low albumin 1.7, BMI 17, weight 48kg, unhealing wounds Sacral decub stage 4, and right ankle ulcer stage 3, present on admission -Ensure shakes with meals -Consulted wound care for recommendations Elevated BUN, suspect mild dehydration, BUN 24 -IVF for hydration -Repeat labs today Hypokalemia: Mild, potassium 3.4, improved to 3.6 with supplementation. -Follow-up BMP and check magnesium. HTN, chronic: Reasonably controlled. Continue home lisinopril, HCTZ. -DC losartan with double angiotensin blocking coverage. Consider adding amlodipine. Chronic Pain & Anxiety: Continue home meds including Oramorph 30mg po q8h and Xanax 2mg q8h prn. -Add [place] as needed for breakthrough. History of CVA with residual right-sided weakness: -Continue Eliquis. DVT prophylaxis: SCDs, Eliquis Discharge Planning SNF vs HHC at discharge, awaiting clinical improvement. Problem Qualifiers (1) Protein calorie malnutrition: Qualified Codes: E43 - Unspecified severe protein-calorie malnutrition (2) HTN (hypertension): Qualified Codes: I10 - Essential (primary) hypertension Sonny Garner Jul 23, 2017 09:37
[2017-07-23] MEDS: SODIUM CHLORIDE 0.9% FLUSH 10 ML FLUSH IV FLUSH SCH ×2 (11:01→21:00)
[2017-07-23] MEDS: PANTOPRAZOLE SOD 40 MG DELAYED RELEASE TAB PO SCH (11:02)
[2017-07-23] MEDS: PRAVASTATIN SOD 40 MG TAB PO SCH (11:02)
[2017-07-23] MEDS: DICYCLOMINE HCL 10 MG CAP PO SCH ×2 (11:02→21:48)
[2017-07-23] MEDS: LISINOPRIL 20 MG TAB PO SCH ×2 (11:03→21:51)
[2017-07-23] MEDS: buPROPion HCL 150 MG SUSTAINED RELEASE TAB PO SCH ×2 (11:03→21:48)
[2017-07-23] MEDS: CLOPIDOGREL 75 MG TAB PO SCH (11:03)
[2017-07-23] MEDS: ASPIRIN EC 81 MG TABEC PO SCH (11:03)
[2017-07-23] MEDS: SERTRALINE HCL 100 MG TAB PO SCH ×2 (11:03→21:51)
[2017-07-23] MEDS: ACETAMINOPHEN/HYDROcodone 325 MG/5 MG TAB PO PRN (11:04)
[2017-07-23] MEDS: NS + KCL 20 MEQ INJ 1,000 ML IV SCH ×2 (11:05→21:52)
[2017-07-23] MEDS: APIXABAN 5 MG TABLET PO SCH ×2 (11:05→21:48)
--- NOTE | 2017-07-23 12:26 | PD.WCN.NOT ---
Wound Consult Description: Received consult for wound management of sacral and R ankle areas from [facility] Kelly Sylviamalka Communicated with: SUKHI Almaguer H pod CDU, JESSICA Garner, and Doctor Fernandez Recommendation: 1.Please cleanse wound to R lateral malleolus with normal saline only and pat dry. Apply Santyl ointment iris thick application to wound bed and cover with dry 4x4 gauze pads, and secured with rolled gauze and tape. Change dressing daily. 2.Cleanse wound to sacrum with normal saline and pat dry. Apply Maxorb II ( Calcium alginate) dressing packed in to wound bed. Apply skin prep to periwound before securing dressing with adhesive foam dressing. Change dressing every 2 days or PRN if saturated or dislodged. If patient is not being discharged, will need [place] [facility] bed or if not available please order K-4 bed from [facility]. Additional Information: Patient seen on H pod for evaluation of wound management of sacral wound and R ankle wound. Patient is a female that is admitted for failure to thrive. Assessed patient with the assistance of Doctor Fernandez and Michelle FLAHERTY. Removed dressing on R foot and ankle to reveal unstageable pressure injury to R lateral malleolus. Wound presents with 80% coverage of yellow adherent slough and ~20% pink tissue. Wound has a round shape with well defined wound margins that appear attached. Slough is from margins.Periwound is noted with peeling, blanchable, erythematous skin that is without induration, edema or heat. Wound drainage is minimal and yellow/ sero-sanguinous without odor. Wound was cleansed with normal saline and pat dry, before applying oil emulsion ( adaptic) gauze over wound bed. covered wound with dry 4x4 gauze pads and secured dressing with rolled gauze and tape. With the assistance of Michelle DESOUZAN turned to patient to L side for wound assessment of sacral area. Removed brief and adhesive foam dressing in place to reveal stage 4 pressure injury to sacrum. Wound bed presents with ~40% muscle tissue, 50% red granulation tissue and ~10% yellow tissue. Wound measurements are as follows: 3.4cm x 2.2cm x1.2cm. Undermining is assessed from 12 to 5 o'clock, deepest at 12 o'clock measuring 1.5cm. Bone was palpated but not visualized. Cleansed wound with normal saline and pat dry before packing wound bed with calcium alginate ( Maxorb II) dressing. Applied skin prep to periwound before covering wound to sacrum with sacral adhesive foam dressing.Changed thick cloth pad under patient to clean ultra sorb pad Pillow placed on L side to offload pressure from sacral area.Patient is currently admitted under observation status. If patient is not discharged would recommend pressure relieving support surface mattress or bed. Amadna Pacheco [facility] Jul 23, 2017 12:26
[2017-07-23 12:30] VITALS: BP 130/71; PULSE 91; RESP 18; TEMP 99.7; O2SAT 91
[2017-07-23 13:02] LABS: AUTOMATED NEUTROPHIL # 3.8 TH/MM3 (1.8-7.7); BASOPHIL % 0.4 % (0.0-2.0); EOSINOPHIL % 0.2 % (0.0-4.0); HEMATOCRIT 25.2 % (35.0-46.0); HEMO FLAGS DIFF FINAL; LYMPH % 17.7 % (9.0-44.0); LYMPHOCYTE # 0.9 TH/MM3 (1.0-4.8); MEAN CELL VOLUME 81.7 FL (80.0-100.0); MEAN CORPUSCULAR HEMOGLOBIN 26.3 PG (27.0-34.0); MEAN CORPUSCULAR HGB CONC 32.2 % (32.0-36.0); MONO % 3.7 % (0.0-8.0); PLATELET COUNT 313 TH/MM3 (150-450); RED BLOOD COUNT 3.08 MIL/MM3 (4.00-5.30); WHITE BLOOD COUNT 4.9 TH/MM3 (4.0-11.0)
[2017-07-23 13:40] LABS: ALT (GPT) 11 U/L (10-53); ANION GAP 4 MEQ/L (5-15); AST (GOT) 33 U/L (15-37); BICARBONATE 28.9 MEQ/L (21.0-32.0); BLOOD UREA NITROGEN 10 MG/DL (7-18); CHLORIDE 107 MEQ/L (98-107); GLOMERULAR FILTRATION RATE 166 ML/MIN (>89); MAGNESIUM 1.9 MG/DL (1.5-2.5); POTASSIUM 4.8 MEQ/L (3.5-5.1); SODIUM (NA) 140 MEQ/L (136-145)
[2017-07-23 13:50] LABS: ALKALINE PHOSPHATASE 83 U/L (45-117); TOTAL BILIRUBIN ADULT 0.2 MG/DL (0.2-1.0)
[2017-07-23 16:00] VITALS: BP 141/72; PULSE 82; RESP 16; TEMP 98.8; O2SAT 95
[2017-07-23] MEDS ORDERED: CYANOCOBALAMIN 1000 MCG/ML VIAL IM ONE (18:00)
[2017-07-23 21:09] VITALS: BP 158/79; PULSE 94; RESP 19; TEMP 99; O2SAT 93
[2017-07-23] MEDS: ALPRAZolam 1 MG TAB PO PRN (23:00)
[2017-07-24] VITALS (7 sets, daily range): BP systolic 108–171; BP diastolic 63–86; PULSE 88–101; RESP 18–20; TEMP 98–99.7; O2SAT 91–96
[2017-07-24] MEDS: MORPHINE SULFATE 30 MG CONTROLLED RELEASE TAB PO SCH ×3 (06:19→23:41)
[2017-07-24] MEDS: COLLAGENASE OINT 30 GM TUBE TOPICAL SCH (08:47)
[2017-07-24] MEDS: SODIUM CHLORIDE 0.9% FLUSH 10 ML FLUSH IV FLUSH SCH ×2 (09:03→20:23)
[2017-07-24] MEDS: DICYCLOMINE HCL 10 MG CAP PO SCH ×2 (09:04→20:24)
[2017-07-24] MEDS: ASPIRIN EC 81 MG TABEC PO SCH (09:04)
[2017-07-24] MEDS: CLOPIDOGREL 75 MG TAB PO SCH (09:05)
[2017-07-24] MEDS: HYDROCHLOROTHIAZIDE 12.5 MG CAP PO SCH (09:05)
[2017-07-24] MEDS: PRAVASTATIN SOD 40 MG TAB PO SCH (09:05)
[2017-07-24] MEDS: APIXABAN 5 MG TABLET PO SCH ×2 (09:05→20:24)
[2017-07-24] MEDS: buPROPion HCL 150 MG SUSTAINED RELEASE TAB PO SCH ×2 (09:06→20:25)
[2017-07-24] MEDS: CHOLECALCIFEROL (VIT D3) 5000 UNIT CAP PO SCH (09:06)
[2017-07-24] MEDS: LISINOPRIL 20 MG TAB PO SCH ×2 (09:06→20:25)
[2017-07-24] MEDS: PANTOPRAZOLE SOD 40 MG DELAYED RELEASE TAB PO SCH (09:06)
[2017-07-24] MEDS: SERTRALINE HCL 100 MG TAB PO SCH ×2 (09:06→20:24)
--- NOTE | 2017-07-24 09:53 | HHI.PR ---
Subjective Remarks Follow-up for failure to thrive and fevers. The patient has been having low- grade fevers overnight, maximum 99.7. Patient has been having nausea. She has been having suprapubic discomfort. She reports 2 normal bowel movements yesterday. She denies any vomiting. She states that she's been holding in her urine waiting for the tech to bring in a bedpan. She denies any subjective chills. She denies any cough or shortness of breath. Discussed with wound care in yesterday, wound care physician wanted a wound culture of the right ankle due to mild surrounding erythema and slough was debrided. Discussed with RN today, dressing changed, wound continues to have mild surrounding erythema and central necrotic area. Objective Vitals Vital Signs Date Time Temp Pulse Resp B/P (MAP) Pulse Ox O2 Delivery O2 Flow Rate FiO2 07/24/17 06:24 99.0 101 19 171/78 (109) 93 07/24/17 00:46 99.5 101 18 157/75 (102) 92 07/23/17 21:09 99.0 94 19 158/79 (105) 93 07/23/17 16:00 98.8 82 16 141/72 (95) 95 07/23/17 12:30 99.7 91 18 130/71 (90) 91 I/O 07/23/17 07/23/17 07/23/17 07/24/17 07/24/17 07/24/17 07:00 15:00 23:00 07:00 15:00 23:00 Intake Total 240 ml Balance 240 ml Intake Oral 240 ml # Voids 4 3 4 Result Diagram: 07/23/17 1235 07/23/17 1235 Imaging Last Impressions Chest X-Ray 07/20/17 1551 Signed Impressions: Service Date/Time: Thursday, July 20, 2017 15:56 - CONCLUSION: 1. Small right-sided effusion and atelectasis. Stable compared to previous. Stephen Serrano MD Head CT 07/20/17 0000 Signed Impressions: Service Date/Time: Thursday, July 20, 2017 17:33 - CONCLUSION: 1. There is an area of encephalomalacia in the randy suggesting an old area of infarct. 2. No acute intracranial abnormality is identified. 3. 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 Stephen Serrano MD Objective Remarks GENERAL: Well-developed fair-nourished thin, cachectic, chronically ill- appearing middle-aged female. Appears generally uncomfortable, but in no acute distress. SKIN: Warm and dry. Right heel with clean dressing. HEENT: Normocephalic. Pupils equal and round. Mucous membranes pink and moist. CARDIOVASCULAR: Regular rate and rhythm. No murmur appreciated. RESPIRATORY: No accessory muscle use. Clear to auscultation. Breath sounds equal bilaterally. GASTROINTESTINAL: Abdomen soft, non-tender, nondistended. Bowel sounds x4. MUSCULOSKELETAL: No obvious deformities. No clubbing or cyanosis. No edema. NEUROLOGICAL: Awake and alert. Right-sided weakness. Moves left side spontaneously. Normal speech. PSYCHIATRIC: Appropriate mood and affect; insight and judgment normal. A/P Problem List: (1) Protein calorie malnutrition ICD Code: E46 - Unspecified protein-calorie malnutrition Status: Chronic (2) Total self-care deficit ICD Code: R41.89 - Other symptoms and signs involving cognitive functions and awareness Status: Acute (3) Hypokalemia ICD Code: E87.6 - Hypokalemia Status: Resolved (4) HTN (hypertension) ICD Code: I10 - Essential (primary) hypertension Status: Chronic (5) Impaired mobility and activities of daily living ICD Code: Z74.09 - Other reduced mobility Status: Acute Assessment and Plan 52 y/o female with a history CVA with right sided paralysis, HTN, HLD, Lupus, anxiety and depression was sent to the ED by her home health nurse for weakness evaluation. Low-grade fevers: Tmax 99.7 on 07/23. Symptoms more consistent with UTI. Other potential source is right ankle wound. Does not meet sepsis criteria at this time. -Repeat UA and CBC. -Right ankle wound culture collected by wound care physician, result pending -Antibiotics and potential ID consult pending results of urine culture, wound culture, or if medical condition worsens Total self care deficit: patient unable to be left alone at home, unable to care for self, patient and suffered a fall at home and now is also in the hospital. Head CT reviewed and shows no acute abnormalities -Consulted case management for possible placement -Continue daily PT while admitted Generalized weakness: Likely due to chronic medical conditions -B12 and vitamin D level are low, give replacement Severe Protein Calorie Malnutrition: cachectic, bitemporal wasting, low albumin 1.7, BMI 17, weight 48kg, unhealing wounds Sacral decub stage 4, and right ankle ulcer stage 3, present on admission -Ensure shakes with meals -Consulted wound care for recommendations Elevated BUN, suspect mild dehydration, BUN 24 -Improved with IVF, DC Hypokalemia: Mild, potassium 3.4. Magnesium within normal limits. -Potassium improved with supplementation HTN, chronic: Not well controlled today. -Continue home lisinopril, HCTZ. -DC'd losartan with double angiotensin blocking coverage. -Patient reports frequent urination and wants to stop HCTZ. -Add amlodipine. Chronic Pain & Anxiety: Continue home meds including Oramorph 30mg po q8h and Xanax 2mg q8h prn. -Added [place] as needed for breakthrough. History of CVA with residual right-sided weakness: -Continue Eliquis. DVT prophylaxis: SCDs, Eliquis Discharge Planning SNF vs HHC at discharge, awaiting clinical improvement. Problem Qualifiers (1) Protein calorie malnutrition: Qualified Codes: E43 - Unspecified severe protein-calorie malnutrition (2) HTN (hypertension): Qualified Codes: I10 - Essential (primary) hypertension Sonny Garner Jul 24, 2017 09:53
[2017-07-24] MEDS: amLODIPine BESYLATE 5 MG TAB PO SCH (10:39)
[2017-07-24 13:43] LABS: AUTOMATED NEUTROPHIL # 3.9 TH/MM3 (1.8-7.7); BASOPHIL % 0.3 % (0.0-2.0); EOSINOPHIL % 0.1 % (0.0-4.0); HEMO FLAGS DIFF FINAL; LYMPH % 19.6 % (9.0-44.0); MEAN CELL VOLUME 81.6 FL (80.0-100.0); MEAN CORPUSCULAR HEMOGLOBIN 26.3 PG (27.0-34.0); MEAN CORPUSCULAR HGB CONC 32.3 % (32.0-36.0); MONO % 3.3 % (0.0-8.0); NEUT % 76.7 % (16.0-70.0); PLATELET COUNT 306 TH/MM3 (150-450); RED BLOOD COUNT 3.31 MIL/MM3 (4.00-5.30); RED CELL DISTRIBUTION WIDTH 20.7 % (11.6-17.2); WHITE BLOOD COUNT 5.1 TH/MM3 (4.0-11.0)
[2017-07-24 16:35] LABS: BACTERIA, URINE MOD /hpf; BLOOD, URINE SMALL (NEG); COMMENT (UR) CULTURE INDICATED; CULTURE IF INDICATED CULTURE INDICATED; GLUCOSE,URINE NEG (NEG); KETONE, URINE NEG (NEG); NITRITE,URINE NEG (NEG); SQUAMOUS EPITHELIAL CELL URINE 4 /hpf (0-5); URINE COLOR YELLOW (YELLW/STRAW)
[2017-07-24] MEDS: PIPERACIL-TAZO 3.375 GM PREMIX 50 ML IV SCH (20:23)
[2017-07-24] MEDS: ACETAMINOPHEN/HYDROcodone 325 MG/5 MG TAB PO PRN (20:24)
[2017-07-24] MEDS: ALPRAZolam 1 MG TAB PO PRN (23:57)
[2017-07-25] VITALS: BP 133/62; PULSE 94; RESP 19; TEMP 99.8; O2SAT 94
[2017-07-25] MEDS: PIPERACIL-TAZO 3.375 GM PREMIX 50 ML IV SCH ×4 (01:59→21:39)
[2017-07-25 04:00] VITALS: BP 130/74; PULSE 86; RESP 20; TEMP 98.3; O2SAT 94
[2017-07-25] MEDS: MORPHINE SULFATE 30 MG CONTROLLED RELEASE TAB PO SCH ×3 (06:21→22:24)
[2017-07-25 08:00] VITALS: BP 143/63; PULSE 87; RESP 16; TEMP 98.6; O2SAT 91
[2017-07-25] MEDS ORDERED: PNEUMOCOCCAL POLYVALENT INJ 25 MCG/0.5 ML SYR IM ONE (09:00)
[2017-07-25] MEDS: LISINOPRIL 20 MG TAB PO SCH ×2 (09:16→21:38)
[2017-07-25] MEDS: APIXABAN 5 MG TABLET PO SCH ×2 (09:17→21:38)
[2017-07-25] MEDS: DICYCLOMINE HCL 10 MG CAP PO SCH ×2 (09:17→21:38)
[2017-07-25] MEDS: amLODIPine BESYLATE 5 MG TAB PO SCH (09:17)
[2017-07-25] MEDS: buPROPion HCL 150 MG SUSTAINED RELEASE TAB PO SCH ×2 (09:17→21:37)
[2017-07-25] MEDS: PANTOPRAZOLE SOD 40 MG DELAYED RELEASE TAB PO SCH (09:17)
[2017-07-25] MEDS: PRAVASTATIN SOD 40 MG TAB PO SCH (09:17)
[2017-07-25] MEDS: SERTRALINE HCL 100 MG TAB PO SCH ×2 (09:17→21:38)
[2017-07-25] MEDS: CHOLECALCIFEROL (VIT D3) 5000 UNIT CAP PO SCH (09:17)
[2017-07-25] MEDS: CLOPIDOGREL 75 MG TAB PO SCH (09:17)
[2017-07-25] MEDS: ACETAMINOPHEN/HYDROcodone 325 MG/5 MG TAB PO PRN ×2 (09:17→18:35)
[2017-07-25] MEDS: ASPIRIN EC 81 MG TABEC PO SCH (09:17)
[2017-07-25] MEDS: SODIUM CHLORIDE 0.9% FLUSH 10 ML FLUSH IV FLUSH SCH ×2 (09:18→21:38)
[2017-07-25] MEDS: COLLAGENASE OINT 30 GM TUBE TOPICAL SCH (09:19)
[2017-07-25 12:00] VITALS: BP 113/67; PULSE 77; RESP 16; TEMP 98.8; O2SAT 93
[2017-07-25 16:00] VITALS: BP 134/62; PULSE 74; RESP 16; TEMP 98.2; O2SAT 92
--- NOTE | 2017-07-25 16:07 | MB ---
cc: ARGENTINA BUITRAGO DPM DATE OF CONSULTATION 07/25/17 TIME OF CONSULTATION 09:00 DATE OF 1965 REASON FOR CONSULTATION Right ankle wound. HISTORY OF PRESENT ILLNESS The patient is a 52-year-old female with a history of CVA, right-sided paralysis, HTN, HLD, lupus, anxiety, depression. The patient relates that she has been at home for approximately 3 weeks with home health care, PT, OT visits. The patient relates that she has had the wound for approximately 3 weeks but has not been treating it. Does have a history of smoking. REVIEW OF SYSTEMS 6 point review of systems per HPI which includes denies shortness of breath, fever or chills. PAST MEDICAL HISTORY CVA with right-sided paralysis, HTN, HLD, lupus, anxiety, depression. PAST SURGICAL HISTORY Hernia repair, , hysterectomy, right shoulder ORIF, pilonidal cyst removed. MEDICATIONS Per HPI. ALLERGIES INFLUENZA, SULFAMETHOXAZOLE, TRIMETHOPRIM. SOCIAL HISTORY Quit tobacco in March 2017. Alcohol, denies. Illicit drugs, denies. The patient is and lives with her at home. PHYSICAL EXAMINATION DIRECTED EXAMINATION: On the right side DP and PT nonpalpable. Lower extremity muscle strength +3/5. There is pain on palpation on the right lateral ankle. There is a wound on the right fibula distal pole, approximately 2 x 2 cm fibrotic in nature. There is no exposed bone. No crepitus with range of motion. No erythema, no drainage. LABORATORY DATA WBC on 07/24/2017 5.1, RBC of 3.31, H&H 8.7 and 27.0. IMAGING STUDIES Currently pending right ankle x-rays. Currently pending arterial blood flow studies. ASSESSMENT/PLAN 1. Right ankle wound. 2. Right hemiplegia. 3. Right neuropathic ulcer, pressure ulcer. ASSESSMENT/PLAN Pending x-rays and arterial blood flow studies. She should continue with Santyl daily with dry sterile dressings on the right. I did order a Cooper or a offloading boot for the right leg. She would likely benefit from physical therapy for assistive devices, strengthening, balancing range of motion. [place] Buitrago DPM SR/JESSA Pace: 07/25/2017/3:30 PM /3:44 PM
--- NOTE | 2017-07-25 19:27 | HHI.PR ---
Subjective Remarks patient states she has poor appetite denies cp/sob denies abdominal pain, nausea or vomiting Objective Vitals Vital Signs Date Time Temp Pulse Resp B/P (MAP) Pulse Ox O2 Delivery O2 Flow Rate FiO2 07/25/17 16:00 98.2 74 16 134/62 (86) 92 07/25/17 12:00 98.8 77 16 113/67 (82) 93 07/25/17 09:10 Room Air 07/25/17 08:00 98.6 87 16 143/63 (89) 91 07/25/17 04:10 Room Air 07/25/17 04:00 98.3 86 20 130/74 (92) 94 07/25/17 00:00 99.8 94 19 133/62 (85) 94 07/24/17 23:10 99.1 89 20 138/66 (90) 96 07/24/17 19:37 98.6 101 18 132/70 (90) 93 I/O 07/24/17 07/24/17 07/24/17 07/25/17 07/25/17 07/25/17 07:00 15:00 23:00 07:00 15:00 23:00 Intake Total 770 ml 150 ml 480 ml Output Total 600 ml Balance 170 ml 150 ml 480 ml Intake Oral 720 ml 100 ml 480 ml IV Total 50 ml 50 ml Output Urine Total 600 ml # Voids 4 3 0 5 Result Diagram: 07/24/17 1309 07/23/17 1235 Imaging Last Impressions Chest X-Ray 07/20/17 1551 Signed Impressions: Service Date/Time: Thursday, July 20, 2017 15:56 - CONCLUSION: 1. Small right-sided effusion and atelectasis. Stable compared to previous. Stephen Serrano MD Head CT 07/20/17 0000 Signed Impressions: Service Date/Time: Thursday, July 20, 2017 17:33 - CONCLUSION: 1. There is an area of encephalomalacia in the randy suggesting an old area of infarct. 2. No acute intracranial abnormality is identified. 3. 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 Stephen Serrano MD Objective Remarks GENERAL: Well-developed mal nourished thin, cachectic, chronically ill- appearing middle-aged female. Appears generally uncomfortable, but in no acute distress. SKIN: Warm and dry. Right heel with clean dressing. HEENT: Normocephalic. Pupils equal and round. Mucous membranes pink and moist. CARDIOVASCULAR: Regular rate and rhythm. No murmur appreciated. RESPIRATORY: No accessory muscle use. Clear to auscultation. Breath sounds equal bilaterally. GASTROINTESTINAL: Abdomen soft, non-tender, nondistended. Bowel sounds x4. MUSCULOSKELETAL: No obvious deformities. No clubbing or cyanosis. No edema. NEUROLOGICAL: Awake and alert. Right-sided weakness. Moves left side spontaneously. Normal speech. PSYCHIATRIC: Appropriate mood and affect; insight and judgment normal. Medications and IVs Current Medications Medications (Trade) Dose Ordered Sig/[place] Route Start Time Stop Time Status Last Admin (NS Flush) 2 ml UNSCH PRN IV FLUSH 07/20/17 22:30 07/20/17 23:59 (NS Flush) 2 ml BID IV FLUSH 07/21/17 09:00 07/25/17 09:18 (Tylenol) 650 mg Q4H PRN PO 07/20/17 22:30 (Zofran Inj) 4 mg Q6H PRN IVP 07/20/17 22:30 (Senokot) 17.2 mg Q12H PRN PO 07/20/17 22:30 (Lactulose Liq) 30 ml DAILY PRN PO 07/20/17 22:30 (Ecotrin Ec) 81 mg DAILY PO 07/21/17 09:00 07/25/17 09:17 (Wellbutrin Sr) 150 mg BID PO 07/21/17 09:00 07/25/17 09:17 (Plavix) 75 mg DAILY PO 07/21/17 09:00 07/25/17 09:17 (Bentyl) 10 mg BID PO 07/21/17 09:00 07/25/17 09:17 (Microzide) 12.5 mg DAILY PO 07/21/17 09:00 Future Hold 07/24/17 09:05 (Prinivil) 20 mg BID PO 07/21/17 09:00 07/25/17 09:16 (Protonix) 40 mg DAILY PO 07/21/17 09:00 07/25/17 09:17 (Zoloft) 100 mg BID PO 07/21/17 09:00 07/25/17 09:17 (Carafate) 1 gm BID PRN PO 07/20/17 23:45 (Pravachol) 40 mg DAILY PO 07/21/17 09:00 07/25/17 09:17 (Desyrel) 150 mg HS PO 07/21/17 21:00 Future Hold (Eliquis) 5 mg BID PO 07/21/17 09:00 07/25/17 09:17 (Tylenol) 650 mg Q6H PRN PO 07/21/17 12:00 (Xanax) 2 mg Q8H PRN PO 07/21/17 14:15 07/24/17 23:57 (Oramorph Sr) 30 mg Q8H PO 07/21/17 15:00 07/25/17 06:21 ([place] 5-325 Mg) 1 tab Q6H PRN PO 07/23/17 11:00 07/25/17 18:35 (Santyl Oint) 1 applic DAILY TOPICAL 07/23/17 12:00 07/25/17 09:19 (Vitamin D3) 5,000 units DAILY PO 07/24/17 09:00 07/25/17 09:17 (Norvasc) 5 mg DAILY PO 07/24/17 10:30 07/25/17 09:17 Piperacillin Sod/ Tazobactam Sod 50 ml @ 100 mls/hr Q6H IV 07/24/17 20:00 07/25/17 15:12 A/P Problem List: (1) Protein calorie malnutrition ICD Code: E46 - Unspecified protein-calorie malnutrition Status: Chronic (2) Total self-care deficit ICD Code: R41.89 - Other symptoms and signs involving cognitive functions and awareness Status: Acute (3) Hypokalemia ICD Code: E87.6 - Hypokalemia Status: Resolved (4) HTN (hypertension) ICD Code: I10 - Essential (primary) hypertension Status: Chronic (5) Impaired mobility and activities of daily living ICD Code: Z74.09 - Other reduced mobility Status: Acute Assessment and Plan 52 y/o female with a history CVA with right sided paralysis, HTN, HLD, Lupus, anxiety and depression was sent to the ED by her home health nurse for weakness evaluation. Low-grade fevers: Tmax 99.7 on 07/23. Symptoms more consistent with UTI. Other potential source is right ankle wound. Does not meet sepsis criteria at this time. -Repeat UA and CBC. -Right ankle wound culture collected by wound care physician, result pending -Antibiotics and potential ID consult pending results of urine culture, wound culture, or if medical condition worsens 07/25 UA on 07/24 positive and urine culture is growing gram negative rods. Patient currently on IV Zosyn. Total self care deficit: patient unable to be left alone at home, unable to care for self, patient and suffered a fall at home and now is also in the hospital. Head CT reviewed and shows no acute abnormalities -Consulted case management for possible placement -Continue daily PT while admitted Generalized weakness: Likely due to chronic medical conditions -B12 and vitamin D level are low, give replacement Severe Protein Calorie Malnutrition: cachectic, bitemporal wasting, low albumin 1.7, BMI 17, weight 48kg, unhealing wounds Sacral decub stage 4, and right ankle ulcer stage 3, present on admission -Consulted wound care for recommendations 07/25 Dietitian consulted. Recommended cardiac diet with Enlive 3 times a day. Recommended Theragran-M daily. Elevated BUN, suspect mild dehydration, BUN 24 -Improved with IVF, DC Hypokalemia: Mild, potassium 3.4. Magnesium within normal limits. -Potassium supplemented level now normal. HTN, chronic: -Continue home lisinopril, HCTZ. -DC'd losartan with double angiotensin blocking coverage. -Patient reports frequent urination and wants to stop HCTZ. -Add amlodipine. 07/25 blood pressure well controlled currently on lisinopril, amlodipine and lisinopril. Chronic Pain & Anxiety: Continue home meds including Oramorph 30mg po q8h and Xanax 2mg q8h prn. -Continue [place] as needed for breakthrough. 07/25 pain seems to be controlled. Continue management as above. History of CVA with residual right-sided weakness: -Continue Eliquis. Right ankle wound Dr Buitrago evaluated patient - recommends arterial blood flow studies and x- rays. Continue with Santyl daily and dry sterile there are since on the right. Cooper offloading boot for the right leg was ordered. DVT prophylaxis: SCDs, Eliquis Problem Qualifiers (1) Protein calorie malnutrition: Qualified Codes: E43 - Unspecified severe protein-calorie malnutrition (2) HTN (hypertension): Qualified Codes: I10 - Essential (primary) hypertension Fernando Hart MD Jul 25, 2017 19:27
[2017-07-25 20:00] VITALS: BP 121/65; PULSE 89; RESP 18; TEMP 98.6; O2SAT 93
--- NOTE | 2017-07-25 20:51 | RADRPT ---
EXAM DATE/TIME: 07/25/2017 20:31 [place] COMPARISON: No previous studies available for comparison. INDICATIONS : Right ankle pain. MEDICAL HISTORY : Cardiovascular disease. Hypertension. Lupus.Hep C SURGICAL HISTORY : Hysterectomy. ENCOUNTER: Initial ACUITY: 1 week PAIN SCORE: 10/10 LOCATION: Right ankle. FINDINGS: Soft tissue irregularity about the lateral aspect of the ankle. There is an abnormal appearance to t he distal fibula with several linear lucencies extending from the lateral malleolus into the diametap hyseal region. No evidence of periosteal reaction. The distal tibia is intact. Ankle mortise is in tact. CONCLUSION: Linear fractures of the distal fibula from diametaphysis to lateral malleolus and associated soft tis aleena irregularity adjacent to the lateral malleolus. Dylan Greenberg MD on July 25, 2017 at 20:48 Board Certified Radiologist. This report was verified electronically.
[2017-07-26] VITALS: BP 143/67; PULSE 89; RESP 20; TEMP 99.3; O2SAT 92
[2017-07-26] MEDS: ACETAMINOPHEN/HYDROcodone 325 MG/5 MG TAB PO PRN ×4 (00:34→23:44)
[2017-07-26] MEDS: PIPERACIL-TAZO 3.375 GM PREMIX 50 ML IV SCH ×4 (02:35→21:25)
[2017-07-26] MEDS: ALPRAZolam 1 MG TAB PO PRN ×2 (02:36→21:29)
[2017-07-26 04:00] VITALS: BP 131/66; PULSE 81; RESP 20; TEMP 98.6; O2SAT 93
[2017-07-26] MEDS: MORPHINE SULFATE 30 MG CONTROLLED RELEASE TAB PO SCH ×3 (06:18→23:44)
[2017-07-26 08:04] VITALS: BP 133/65; PULSE 80; RESP 16; TEMP 98.1; O2SAT 90
[2017-07-26] MEDS: APIXABAN 5 MG TABLET PO SCH ×2 (08:17→21:27)
[2017-07-26] MEDS: PANTOPRAZOLE SOD 40 MG DELAYED RELEASE TAB PO SCH (08:17)
[2017-07-26] MEDS: buPROPion HCL 150 MG SUSTAINED RELEASE TAB PO SCH ×2 (08:17→21:26)
[2017-07-26] MEDS: PRAVASTATIN SOD 40 MG TAB PO SCH (08:17)
[2017-07-26] MEDS: LISINOPRIL 20 MG TAB PO SCH ×2 (08:18→21:25)
[2017-07-26] MEDS: CHOLECALCIFEROL (VIT D3) 5000 UNIT CAP PO SCH (08:18)
[2017-07-26] MEDS: ASPIRIN EC 81 MG TABEC PO SCH (08:18)
[2017-07-26] MEDS: DICYCLOMINE HCL 10 MG CAP PO SCH ×2 (08:18→21:27)
[2017-07-26] MEDS: CLOPIDOGREL 75 MG TAB PO SCH (08:18)
[2017-07-26] MEDS: SERTRALINE HCL 100 MG TAB PO SCH ×2 (08:18→21:25)
[2017-07-26] MEDS: amLODIPine BESYLATE 5 MG TAB PO SCH (08:18)
[2017-07-26] MEDS: SODIUM CHLORIDE 0.9% FLUSH 10 ML FLUSH IV FLUSH SCH ×2 (08:19→21:25)
[2017-07-26] MEDS: COLLAGENASE OINT 30 GM TUBE TOPICAL SCH (08:19)
--- NOTE | 2017-07-26 10:26 | PD.POD ---
Subjective Podiatric Problems R ankle wound R ankle non dispatched fracture. Pain scale used: 0-10 numeric scale Pain score: 7 Past Med/Surg/Social History Past Surgical History Breast: REPORTS HX OF: Mastectomy, bilateral Social History Smoking Status: Former Smoker Objective Vital Signs Vital Signs Date Time Temp Pulse Resp B/P (MAP) Pulse Ox O2 Delivery O2 Flow Rate FiO2 07/26/17 08:04 98.1 80 16 133/65 (87) 90 07/26/17 04:00 Room Air 07/26/17 04:00 98.6 81 20 131/66 (87) 93 07/26/17 00:32 Room Air 07/26/17 00:00 99.3 89 20 143/67 (92) 92 07/25/17 20:00 Room Air 07/25/17 20:00 98.6 89 18 121/65 (83) 93 07/25/17 16:00 98.2 74 16 134/62 (86) 92 07/25/17 12:00 98.8 77 16 113/67 (82) 93 Coded Allergies: Influenza Virus Vaccines (Unverified Allergy, Severe, Respiratory Failure , 07/20/17) sulfamethoxazole (Unverified Allergy, Severe, SKIN PROBLEMS, 07/20/17) trimethoprim (Unverified Allergy, Severe, SKIN PROBLEMS, 07/20/17) Other Results Last Impressions Chest X-Ray 07/20/17 1551 Signed Impressions: Service Date/Time: Thursday, July 20, 2017 15:56 - CONCLUSION: 1. Small right-sided effusion and atelectasis. Stable compared to previous. Stephen Serrano MD Head CT 07/20/17 0000 Signed Impressions: Service Date/Time: Thursday, July 20, 2017 17:33 - CONCLUSION: 1. There is an area of encephalomalacia in the randy suggesting an old area of infarct. 2. No acute intracranial abnormality is identified. 3. 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 Stephen Serrano MD Laboratory Tests Test 07/24/17 13:09 07/24/17 15:45 White Blood Count 5.1 TH/MM3 Red Blood Count 3.31 MIL/MM3 Hemoglobin 8.7 GM/DL Hematocrit 27.0 % Mean Corpuscular Volume 81.6 FL Mean Corpuscular Hemoglobin 26.3 PG Mean Corpuscular Hemoglobin Concent 32.3 % Red Cell Distribution Width 20.7 % Platelet Count 306 TH/MM3 Mean Platelet Volume 7.3 FL Neutrophils (%) (Auto) 76.7 % Lymphocytes (%) (Auto) 19.6 % Monocytes (%) (Auto) 3.3 % Eosinophils (%) (Auto) 0.1 % Basophils (%) (Auto) 0.3 % Neutrophils # (Auto) 3.9 TH/MM3 Lymphocytes # (Auto) 1.0 TH/MM3 Monocytes # (Auto) 0.2 TH/MM3 Eosinophils # (Auto) 0.0 TH/MM3 Basophils # (Auto) 0.0 TH/MM3 CBC Comment DIFF FINAL Differential Comment Urine Color YELLOW Urine Turbidity HAZY Urine pH 8.0 Urine Specific [place] 1.014 Urine Protein 30 mg/dL Urine Glucose (UA) NEG mg/dL Urine Ketones NEG mg/dL Urine Occult Blood SMALL Urine Nitrite NEG Urine Bilirubin NEG Urine Urobilinogen LESS THAN 2.0 MG/DL Urine Leukocyte Esterase LARGE Urine RBC 5 /hpf Urine WBC 36 /hpf Urine Squamous Epithelial Cells 4 /hpf Urine Bacteria MOD /hpf Microscopic Urinalysis Comment CULTURE INDICATED Exam-Podiatry Dermatological Exam Ulcers: Location/Measurements RLE No strikethrough, NVS intact. + right ankle pain with palpation. DP and PT diminished. Assessment & Plan Diagnosis: (1) Open right ankle fracture ICD Codes: S82.891B - Other fracture of right lower leg, initial encounter for open fracture type I or II (2) Decubitus ulcer, ankle ICD Codes: L89.509 - Pressure ulcer of unspecified ankle, unspecified stage A/P Pending Blood Flow Recommend Ceretc to r/o OM NWB R ankle Continue with Santyl and DSD daily. Dr Jimenez begin coverage 07/27/17 [place] Buitrago DPM Jul 26, 2017 10:26
[2017-07-26 12:03] VITALS: BP 130/64; PULSE 78; RESP 16; TEMP 98; O2SAT 88
[2017-07-26 13:05] LABS: AUTOMATED NEUTROPHIL # 2.7 TH/MM3 (1.8-7.7); BASOPHIL % 0.5 % (0.0-2.0); EOSINOPHIL % 0.2 % (0.0-4.0); HEMATOCRIT 26.6 % (35.0-46.0); HEMO FLAGS DIFF FINAL; LYMPH % 25.3 % (9.0-44.0); MEAN CELL VOLUME 81.8 FL (80.0-100.0); MEAN CORPUSCULAR HEMOGLOBIN 26.3 PG (27.0-34.0); MEAN CORPUSCULAR HGB CONC 32.2 % (32.0-36.0); MONO % 3.7 % (0.0-8.0); NEUT % 70.3 % (16.0-70.0); PLATELET COUNT 265 TH/MM3 (150-450); RED BLOOD COUNT 3.25 MIL/MM3 (4.00-5.30); RED CELL DISTRIBUTION WIDTH 20.7 % (11.6-17.2); WHITE BLOOD COUNT 3.8 TH/MM3 (4.0-11.0)
[2017-07-26 13:28] LABS: ALKALINE PHOSPHATASE 78 U/L (45-117); ALT (GPT) 15 U/L (10-53); TOTAL BILIRUBIN ADULT 0.3 MG/DL (0.2-1.0)
[2017-07-26 13:32] LABS: ANION GAP 6 MEQ/L (5-15); BICARBONATE 30.2 MEQ/L (21.0-32.0); BLOOD UREA NITROGEN 10 MG/DL (7-18); CHLORIDE 104 MEQ/L (98-107); GLOMERULAR FILTRATION RATE 162 ML/MIN (>89); SODIUM (NA) 140 MEQ/L (136-145)
[2017-07-26 13:34] LABS: AST (GOT) 30 U/L (15-37); MAGNESIUM 2.2 MG/DL (1.5-2.5); POTASSIUM 4.5 MEQ/L (3.5-5.1)
[2017-07-26] MEDS ORDERED: DIATRIZOATE MEGLUM/DIATRIZOATE SOD 9 ML CUP PO ONE (14:30)
--- NOTE | 2017-07-26 15:47 | HHI.PR ---
Subjective Remarks Patient seen earlier at 1 pm patient still has poor appetite c/o pain in ankle denies sob/cp c/o abdominal pain Objective Vitals Vital Signs Date Time Temp Pulse Resp B/P (MAP) Pulse Ox O2 Delivery O2 Flow Rate FiO2 07/26/17 12:03 98.0 78 16 130/64 (86) 88 07/26/17 08:15 Room Air 07/26/17 08:04 98.1 80 16 133/65 (87) 90 07/26/17 04:00 Room Air 07/26/17 04:00 98.6 81 20 131/66 (87) 93 07/26/17 00:32 Room Air 07/26/17 00:00 99.3 89 20 143/67 (92) 92 07/25/17 20:00 Room Air 07/25/17 20:00 98.6 89 18 121/65 (83) 93 07/25/17 16:00 98.2 74 16 134/62 (86) 92 I/O 07/25/17 07/25/17 07/25/17 07/26/17 07/26/17 07/26/17 07:00 15:00 23:00 07:00 15:00 23:00 Intake Total 150 ml 530 ml 50 ml Balance 150 ml 530 ml 50 ml Intake Oral 100 ml 480 ml IV Total 50 ml 50 ml 50 ml # Voids 0 5 2 Result Diagram: 07/26/17 1249 07/26/17 1249 Imaging Last Impressions Ankle X-Ray 07/25/17 0000 Signed Impressions: Service Date/Time: Tuesday, July 25, 2017 20:31 - CONCLUSION: Linear fractures of the distal fibula from diametaphysis to lateral malleolus and associated soft tissue irregularity adjacent to the lateral malleolus. Dylan Greenberg MD Chest X-Ray 07/20/17 1551 Signed Impressions: Service Date/Time: Thursday, July 20, 2017 15:56 - CONCLUSION: 1. Small right-sided effusion and atelectasis. Stable compared to previous. Stephen Serrano MD Head CT 07/20/17 0000 Signed Impressions: Service Date/Time: Thursday, July 20, 2017 17:33 - CONCLUSION: 1. There is an area of encephalomalacia in the randy suggesting an old area of infarct. 2. No acute intracranial abnormality is identified. 3. 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 Stephen Serrano MD Objective Remarks GENERAL: Well-developed mal nourished thin, cachectic, chronically ill- appearing middle-aged female. Appears generally uncomfortable, but in no acute distress. SKIN: Warm and dry. Right heel with clean dressing. HEENT: Normocephalic. Pupils equal and round. Mucous membranes pink and moist. CARDIOVASCULAR: Regular rate and rhythm. No murmur appreciated. RESPIRATORY: No accessory muscle use. Clear to auscultation. Breath sounds equal bilaterally. GASTROINTESTINAL: Abdomen soft, tender to palpation of RUQ and lower abdomen, nondistended. Bowel sounds x4. MUSCULOSKELETAL: No obvious deformities. No clubbing or cyanosis. No edema. NEUROLOGICAL: Awake and alert. Right-sided weakness. Moves left side spontaneously. Normal speech. PSYCHIATRIC: Appropriate mood and affect; insight and judgment normal. Medications and IVs Current Medications Medications (Trade) Dose Ordered Sig/[place] Route Start Time Stop Time Status Last Admin (NS Flush) 2 ml UNSCH PRN IV FLUSH 07/20/17 22:30 07/20/17 23:59 (NS Flush) 2 ml BID IV FLUSH 07/21/17 09:00 07/26/17 08:19 (Tylenol) 650 mg Q4H PRN PO 07/20/17 22:30 (Zofran Inj) 4 mg Q6H PRN IVP 07/20/17 22:30 (Senokot) 17.2 mg Q12H PRN PO 07/20/17 22:30 (Lactulose Liq) 30 ml DAILY PRN PO 07/20/17 22:30 (Ecotrin Ec) 81 mg DAILY PO 07/21/17 09:00 07/26/17 08:18 (Wellbutrin Sr) 150 mg BID PO 07/21/17 09:00 07/26/17 08:17 (Plavix) 75 mg DAILY PO 07/21/17 09:00 07/26/17 08:18 (Bentyl) 10 mg BID PO 07/21/17 09:00 07/26/17 08:18 (Microzide) 12.5 mg DAILY PO 07/21/17 09:00 Future Hold 07/24/17 09:05 (Prinivil) 20 mg BID PO 07/21/17 09:00 07/26/17 08:18 (Protonix) 40 mg DAILY PO 07/21/17 09:00 07/26/17 08:17 (Zoloft) 100 mg BID PO 07/21/17 09:00 07/26/17 08:18 (Carafate) 1 gm BID PRN PO 07/20/17 23:45 (Pravachol) 40 mg DAILY PO 07/21/17 09:00 07/26/17 08:17 (Desyrel) 150 mg HS PO 07/21/17 21:00 Future Hold (Eliquis) 5 mg BID PO 07/21/17 09:00 07/26/17 08:17 (Tylenol) 650 mg Q6H PRN PO 07/21/17 12:00 (Xanax) 2 mg Q8H PRN PO 07/21/17 14:15 07/26/17 02:36 (Oramorph Sr) 30 mg Q8H PO 07/21/17 15:00 07/26/17 14:24 (Thayer 5-325 Mg) 1 tab Q6H PRN PO 07/23/17 11:00 07/26/17 08:18 (Santyl Oint) 1 applic DAILY TOPICAL 07/23/17 12:00 07/26/17 08:19 (Vitamin D3) 5,000 units DAILY PO 07/24/17 09:00 07/26/17 08:18 (Norvasc) 5 mg DAILY PO 07/24/17 10:30 07/26/17 08:18 Piperacillin Sod/ Tazobactam Sod 50 ml @ 100 mls/hr Q6H IV 07/24/17 20:00 07/26/17 14:24 A/P Problem List: (1) Protein calorie malnutrition ICD Code: E46 - Unspecified protein-calorie malnutrition Status: Chronic (2) Total self-care deficit ICD Code: R41.89 - Other symptoms and signs involving cognitive functions and awareness Status: Acute (3) Hypokalemia ICD Code: E87.6 - Hypokalemia Status: Resolved (4) HTN (hypertension) ICD Code: I10 - Essential (primary) hypertension Status: Chronic (5) Impaired mobility and activities of daily living ICD Code: Z74.09 - Other reduced mobility Status: Acute Assessment and Plan 52 y/o female with a history CVA with right sided paralysis, HTN, HLD, Lupus, anxiety and depression was sent to the ED by her home health nurse for weakness evaluation. Low-grade fevers: Tmax 99.7 on 07/23. Symptoms more consistent with UTI. Other potential source is right ankle wound. Does not meet sepsis criteria at this time. -Repeat UA and CBC. -Right ankle wound culture collected by wound care physician, result pending -Antibiotics and potential ID consult pending results of urine culture, wound culture, or if medical condition worsens 07/25 UA on 07/24 positive and urine culture is growing gram negative rods. Patient currently on IV Zosyn. Total self care deficit: patient unable to be left alone at home, unable to care for self, patient and suffered a fall at home and now is also in the hospital. Head CT reviewed and shows no acute abnormalities -Consulted case management for possible placement -Continue daily PT while admitted Generalized weakness: Likely due to chronic medical conditions -B12 and vitamin D level are low, give replacement Severe Protein Calorie Malnutrition: cachectic, bitemporal wasting, low albumin 1.7, BMI 17, weight 48kg, unhealing wounds Sacral decub stage 4, and right ankle ulcer stage 3, present on admission -Consulted wound care for recommendations 07/25 Dietitian consulted. Recommended cardiac diet with Enlive 3 times a day. Recommended Theragran-M daily. Elevated BUN, suspect mild dehydration, BUN 24 -Improved with IVF, DC Hypokalemia: Mild, potassium 3.4. Magnesium within normal limits. -Potassium supplemented level now normal. HTN, chronic: -Continue home lisinopril, HCTZ. -DC'd losartan with double angiotensin blocking coverage. -Patient reports frequent urination and wants to stop HCTZ. -Add amlodipine. 07/25 blood pressure well controlled currently on lisinopril, amlodipine and lisinopril. Chronic Pain & Anxiety: Continue home meds including Oramorph 30mg po q8h and Xanax 2mg q8h prn. -Continue Thayer as needed for breakthrough. 07/25 pain seems to be controlled. Continue management as above. History of CVA with residual right-sided weakness: -Continue Eliquis. Right ankle wound Dr Buitrago evaluated patient - recommends arterial blood flow studies and x- rays. Continue with Santyl daily and dry sterile there are since on the right. Cooper offloading boot for the right leg was ordered. - 07/26 Will order MRI to r/o osteomyelitis. Hypoxemia Patient's o2 saturation in the 90's, patient not in distress - will repeat CXR DVT prophylaxis: SCDs, Eliquis Problem Qualifiers (1) Protein calorie malnutrition: Qualified Codes: E43 - Unspecified severe protein-calorie malnutrition (2) HTN (hypertension): Qualified Codes: I10 - Essential (primary) hypertension Fernando Hart MD Jul 26, 2017 15:46
[2017-07-26 16:03] VITALS: BP 149/83; PULSE 83; RESP 16; TEMP 98.5; O2SAT 94
--- NOTE | 2017-07-26 16:25 | RADRPT ---
EXAM DATE/TIME: 07/26/2017 15:42 [facility] COMPARISON: No previous studies available for comparison. INDICATIONS : Hypoxemia. MEDICAL HISTORY : Cardiovascular disease. Hypertension Lupus. Hep C. SURGICAL HISTORY : Hysterectomy. ENCOUNTER: Subsequent ACUITY: 2 weeks PAIN SCORE: 0/10 LOCATION: Left chest FINDINGS: A single view of the chest demonstrates the lungs to be symmetrically aerated without evidence of mas s. Blunting of the right costophrenic angle suggesting pleural effusion. Minimal consolidation right lower lobe. The cardiomediastinal contours are unremarkable. Osseous structures are intact. CONCLUSION: Small right pleural effusion, some adjacent consolidation, likely atelectasis. Juan Medeiros MD on July 26, 2017 at 16:22 Board Certified Radiologist. This report was verified electronically.
[2017-07-26] MEDS ORDERED: GADODIAMIDE PF 287 MG/ML 10 ML VIAL (for RAD MRI) IVCONTRAST ONE (17:07)
--- NOTE | 2017-07-26 17:28 | RADRPT ---
EXAM DATE/TIME: 07/26/2017 16:53 [facility] COMPARISON: No previous studies available for comparison. INDICATIONS : Osteomyelitis. CONTRAST: 10 cc Omniscan (gadodiamide) IV MEDICAL HISTORY : Cerebrovascular disease. Hypertension. Hypercholesterolemia. Lupus. SURGICAL HISTORY : Umbilical hernia repair. Hysterectomy. ORIF right shoulder. ENCOUNTER: Initial ACUITY: 3 day PAIN SCORE: 3/10 LOCATION: Right lateral ankle TECHNIQUE: Multiplanar, multisequence MRI examination was performed without contrast and after the intravenous a dministration of gadolinium. FINDINGS: BONE/CARTILAGE: There is abnormal marrow replacement and enhancement involving the lateral edge of the lateral malleo arielle consistent with osteomyelitis. Articular cartilage signal is within normal limits. TENDONS: All of the visualized tendons are intact. LIGAMENTS: The lateral and medial ligament complexes are intact. MISCELLANEOUS: The plantar aponeurosis is intact. The tarsal tunnel is within normal limits. POST-CONTRAST: Marked enhancement along the lateral edge of the lateral malleolus and overlying soft tissue. There i s a soft tissue defect overlying the lateral malleolus CONCLUSION: Marked enhancement along the lateral edge of the lateral malleolus with a soft tissue defect consiste nt with osteomyelitis. Juan Medeiros MD on July 26, 2017 at 17:25 Board Certified Radiologist. This report was verified electronically.
[2017-07-26] MEDS: MULTIVITAMINS/MINERALS THERAPEUTIC TAB PO SCH (17:34)
[2017-07-26 20:00] VITALS: BP 140/65; PULSE 82; RESP 19; TEMP 98.5; O2SAT 94
[2017-07-26] MEDS ORDERED: IOHEXOL 350 MG/ML 10 ML VIAL (for RAD DIAG) IVCONTRAST ONE (20:10)
--- NOTE | 2017-07-26 20:42 | RADRPT ---
EXAM DATE/TIME: 07/26/2017 19:55 [facility] COMPARISON: CT ABDOMEN & PELVIS W CONTRAST, June 04, 2017, 10:13. INDICATIONS : Diffuse abdomen pain today. IV CONTRAST: 70 cc Omnipaque 350 (iohexol) IV ORAL CONTRAST: Prescribed oral contrast ingested. RADIATION DOSE: 9.96 CTDIvol (mGy) MEDICAL HISTORY : . Hepatitis C. Lupus. SURGICAL HISTORY : Hysterectomy. mastectomy ENCOUNTER: Initial ACUITY: 1 day PAIN SCALE: 5/10 LOCATION: Bilateral abdomen TECHNIQUE: Volumetric scanning of the abdomen and pelvis was performed. Using automated exposure control and ad justment of the mA and/or kV according to patient size, radiation dose was kept as low as reasonably achievable to obtain optimal diagnostic quality images. DICOM format image data is available electro nically for review and comparison. FINDINGS: LOWER LUNGS: Bilateral pleural effusions, measuring up to 2.2 cm in thickness an associated bibasilar consolidatio n, left greater than right, stable from prior. LIVER: Homogeneous density without lesion. Prominence of the central biliary ducts is similar in appearance to prior examination. The common bile duct measures 13 mm (previously measured 8 mm). No calcifica tions seen within the common bile duct.. No calcified gallstones. SPLEEN: Normal size without lesion. PANCREAS: Within normal limits. KIDNEYS: Normal in size and shape. There is no mass, stone or hydronephrosis. ADRENAL GLANDS: Within normal limits. VASCULAR: There is no aortic aneurysm. BOWEL/MESENTERY: No dilated loops of small or large bowel. Oral contrast passes through to the right colon. No evide nce of free fluid. ABDOMINAL WALL: There is mild anasarca of the body wall, improved when compared to 06/04/17. RETROPERITONEUM: There is no lymphadenopathy. BLADDER: No wall thickening or mass. REPRODUCTIVE: Within normal limits. INGUINAL: There is no lymphadenopathy or hernia. MUSCULOSKELETAL: Within normal limits for patient age. CONCLUSION: 1. Significant increase in the dimension of the common bile duct when compared to 06/04/17, now chris uring 13 mm. Persistent mild dilation of the intrahepatic biliary ducts. Recommend correlation with clinical labs for collaborating evidence of biliary obstruction. 2. Bilateral pleural effusions and bibasilar consolidation, similar to prior. Dylan Greenberg MD on July 26, 2017 at 20:35 Board Certified Radiologist. This report was verified electronically.
[2017-07-27] VITALS: BP 138/71; PULSE 80; RESP 20; TEMP 98.7; O2SAT 94
[2017-07-27] MEDS: PIPERACIL-TAZO 3.375 GM PREMIX 50 ML IV SCH ×4 (03:01→20:31)
[2017-07-27 04:00] VITALS: BP 147/71; PULSE 80; RESP 20; TEMP 98.7; O2SAT 94
[2017-07-27] MEDS: ACETAMINOPHEN/HYDROcodone 325 MG/5 MG TAB PO PRN (06:09)
[2017-07-27] MEDS: MORPHINE SULFATE 30 MG CONTROLLED RELEASE TAB PO SCH ×3 (06:09→22:20)
--- NOTE | 2017-07-27 08:05 | RADRPT ---
EXAM DATE/TIME: 07/25/2017 00:00 [facility] COMPARISON: No previous studies available for comparison. INDICATIONS : Right ankle wound TECHNIQUE: Five-station segmental examination of the lower extremities was performed. Pulsed-cuff waveform tracings and pressures were recorded. Ankle-brachial indices and toe-brachial indices were calculated. PRESSURES (mmHg): Brachial (arm): Right 117 Lower Thigh: Right 134 Left 123 Calf: Right 92 Left 89 Ankle: Right 79 Left 86 Toe: Right 37 Left 28 JAMIE: Right 0.68 Left 0.74 TBI: Right 0.32 Left 0.24 PULSED CUFF WAVEFORMS: There is blunting of the waveforms at the level of the ankles bilaterally. CONCLUSION: 1. moderate disease bilaterally as well as decreased TBI characteristic of small vessel disease Rickie Hutchinson MD on July 27, 2017 at 8:03 Board Certified Radiologist. This report was verified electronically.
[2017-07-27 08:42] VITALS: BP 148/71; PULSE 82; RESP 16; TEMP 98.4; O2SAT 90
[2017-07-27] MEDS: SODIUM CHLORIDE 0.9% FLUSH 10 ML FLUSH IV FLUSH SCH ×2 (10:19→20:31)
[2017-07-27] MEDS: APIXABAN 5 MG TABLET PO SCH ×2 (10:22→20:32)
[2017-07-27] MEDS: amLODIPine BESYLATE 5 MG TAB PO SCH (10:22)
[2017-07-27] MEDS: MULTIVITAMINS/MINERALS THERAPEUTIC TAB PO SCH (10:22)
[2017-07-27] MEDS: buPROPion HCL 150 MG SUSTAINED RELEASE TAB PO SCH ×2 (10:22→20:32)
[2017-07-27] MEDS: SERTRALINE HCL 100 MG TAB PO SCH ×2 (10:22→20:32)
[2017-07-27] MEDS: CHOLECALCIFEROL (VIT D3) 5000 UNIT CAP PO SCH (10:22)
[2017-07-27] MEDS: PRAVASTATIN SOD 40 MG TAB PO SCH (10:22)
[2017-07-27] MEDS: DICYCLOMINE HCL 10 MG CAP PO SCH ×2 (10:23→20:32)
[2017-07-27] MEDS: PANTOPRAZOLE SOD 40 MG DELAYED RELEASE TAB PO SCH (10:23)
[2017-07-27] MEDS: ASPIRIN EC 81 MG TABEC PO SCH (10:23)
[2017-07-27] MEDS: LISINOPRIL 20 MG TAB PO SCH ×2 (10:23→20:32)
[2017-07-27] MEDS: CLOPIDOGREL 75 MG TAB PO SCH (10:23)
[2017-07-27] MEDS: COLLAGENASE OINT 30 GM TUBE TOPICAL SCH (10:24)
[2017-07-27 12:08] VITALS: BP 122/63; PULSE 80; RESP 16; TEMP 98.8; O2SAT 93
[2017-07-27] MEDS: ALPRAZolam 1 MG TAB PO PRN (15:15)
--- NOTE | 2017-07-27 15:18 | HHI.PR ---
Subjective Remarks patient still c/o abdominal pain denies fevers/chills denies nausea or vomiting vital signs stable Objective Vitals Vital Signs Date Time Temp Pulse Resp B/P (MAP) Pulse Ox O2 Delivery O2 Flow Rate FiO2 07/27/17 12:08 98.8 80 16 122/63 (82) 93 07/27/17 08:42 98.4 82 16 148/71 (96) 90 07/27/17 04:00 98.7 80 20 147/71 (96) 94 07/27/17 00:00 98.7 80 20 138/71 (93) 94 07/26/17 22:00 Room Air 07/26/17 20:00 98.5 82 19 140/65 (90) 94 07/26/17 16:03 98.5 83 16 149/83 (105) 94 I/O 07/26/17 07/26/17 07/26/17 07/27/17 07/27/17 07/27/17 07:00 15:00 23:00 07:00 15:00 23:00 Intake Total 50 ml 380 ml 200 ml Balance 50 ml 380 ml 200 ml Intake Oral 280 ml 100 ml IV Total 50 ml 100 ml 100 ml # Voids 2 4 4 # Bowel Movements 0 0 Result Diagram: 07/26/17 1249 07/26/17 1249 Imaging Last Impressions Chest X-Ray 07/26/17 0000 Signed Impressions: Service Date/Time: Wednesday, July 26, 2017 15:42 - CONCLUSION: Small right pleural effusion, some adjacent consolidation, likely atelectasis. Juan Medeiros MD Ankle MRI 07/26/17 0000 Signed Impressions: Service Date/Time: Wednesday, July 26, 2017 16:53 - CONCLUSION: Marked enhancement along the lateral edge of the lateral malleolus with a soft tissue defect consistent with osteomyelitis. Juan Medeiros MD Abdomen/Pelvis CT 07/26/17 0000 Signed Impressions: Service Date/Time: Wednesday, July 26, 2017 19:55 - CONCLUSION: 1. Significant increase in the dimension of the common bile duct when compared to 06/04/17, now measuring 13 mm. Persistent mild dilation of the intrahepatic biliary ducts. Recommend correlation with clinical labs for collaborating evidence of biliary obstruction. 2. Bilateral pleural effusions and bibasilar consolidation, similar to prior. Dylan Greenberg MD Ankle X-Ray 07/25/17 0000 Signed Impressions: Service Date/Time: Tuesday, July 25, 2017 20:31 - CONCLUSION: Linear fractures of the distal fibula from diametaphysis to lateral malleolus and associated soft tissue irregularity adjacent to the lateral malleolus. Dylan Greenberg MD Head CT 07/20/17 0000 Signed Impressions: Service Date/Time: Thursday, July 20, 2017 17:33 - CONCLUSION: 1. There is an area of encephalomalacia in the randy suggesting an old area of infarct. 2. No acute intracranial abnormality is identified. 3. 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 Stephen Serrano MD Objective Remarks GENERAL: Well-developed mal nourished thin, cachectic, chronically ill- appearing middle-aged female. Appears generally uncomfortable, but in no acute distress. SKIN: Warm and dry. Right heel with clean dressing. HEENT: Normocephalic. Pupils equal and round. Mucous membranes pink and moist. CARDIOVASCULAR: Regular rate and rhythm. No murmur appreciated. RESPIRATORY: No accessory muscle use. Clear to auscultation. Breath sounds equal bilaterally. GASTROINTESTINAL: Abdomen soft, tender to palpation of RUQ and lower abdomen, nondistended. Bowel sounds x4. MUSCULOSKELETAL: No obvious deformities. No clubbing or cyanosis. No edema. NEUROLOGICAL: Awake and alert. Right-sided weakness. Moves left side spontaneously. Normal speech. PSYCHIATRIC: Appropriate mood and affect; insight and judgment normal. Medications and IVs Current Medications Medications (Trade) Dose Ordered Sig/[place] Route Start Time Stop Time Status Last Admin (NS Flush) 2 ml UNSCH PRN IV FLUSH 07/20/17 22:30 07/20/17 23:59 (NS Flush) 2 ml BID IV FLUSH 07/21/17 09:00 07/27/17 10:19 (Tylenol) 650 mg Q4H PRN PO 07/20/17 22:30 (Zofran Inj) 4 mg Q6H PRN IVP 07/20/17 22:30 (Senokot) 17.2 mg Q12H PRN PO 07/20/17 22:30 (Lactulose Liq) 30 ml DAILY PRN PO 07/20/17 22:30 (Ecotrin Ec) 81 mg DAILY PO 07/21/17 09:00 07/27/17 10:23 (Wellbutrin Sr) 150 mg BID PO 07/21/17 09:00 07/27/17 10:22 (Plavix) 75 mg DAILY PO 07/21/17 09:00 07/27/17 10:23 (Bentyl) 10 mg BID PO 07/21/17 09:00 07/27/17 10:23 (Microzide) 12.5 mg DAILY PO 07/21/17 09:00 Future Hold 07/24/17 09:05 (Prinivil) 20 mg BID PO 07/21/17 09:00 07/27/17 10:23 (Protonix) 40 mg DAILY PO 07/21/17 09:00 07/27/17 10:23 (Zoloft) 100 mg BID PO 07/21/17 09:00 07/27/17 10:22 (Carafate) 1 gm BID PRN PO 07/20/17 23:45 (Pravachol) 40 mg DAILY PO 07/21/17 09:00 07/27/17 10:22 (Desyrel) 150 mg HS PO 07/21/17 21:00 Future Hold (Eliquis) 5 mg BID PO 07/21/17 09:00 07/27/17 10:22 (Tylenol) 650 mg Q6H PRN PO 07/21/17 12:00 (Xanax) 2 mg Q8H PRN PO 07/21/17 14:15 07/27/17 15:15 (Oramorph Sr) 30 mg Q8H PO 07/21/17 15:00 07/27/17 14:59 ([place] 5-325 Mg) 1 tab Q6H PRN PO 07/23/17 11:00 07/27/17 06:09 (Santyl Oint) 1 applic DAILY TOPICAL 07/23/17 12:00 07/27/17 10:24 (Vitamin D3) 5,000 units DAILY PO 07/24/17 09:00 07/27/17 10:22 (Norvasc) 5 mg DAILY PO 07/24/17 10:30 07/27/17 10:22 Piperacillin Sod/ Tazobactam Sod 50 ml @ 100 mls/hr Q6H IV 07/24/17 20:00 07/27/17 13:43 (Theragran M Tab) 1 tab DAILY PO 07/26/17 15:45 07/27/17 10:22 A/P Problem List: (1) Protein calorie malnutrition ICD Code: E46 - Unspecified protein-calorie malnutrition Status: Chronic (2) Total self-care deficit ICD Code: R41.89 - Other symptoms and signs involving cognitive functions and awareness Status: Acute (3) Hypokalemia ICD Code: E87.6 - Hypokalemia Status: Resolved (4) HTN (hypertension) ICD Code: I10 - Essential (primary) hypertension Status: Chronic (5) Impaired mobility and activities of daily living ICD Code: Z74.09 - Other reduced mobility Status: Acute Assessment and Plan 52 y/o female with a history CVA with right sided paralysis, HTN, HLD, Lupus, anxiety and depression was sent to the ED by her home health nurse for weakness evaluation. Low-grade fevers: Tmax 99.7 on 07/23. Symptoms more consistent with UTI. Other potential source is right ankle wound. Does not meet sepsis criteria at this time. -Repeat UA and CBC. -Right ankle wound culture collected by wound care physician, result pending -Antibiotics and potential ID consult pending results of urine culture, wound culture, or if medical condition worsens 07/25 UA on 07/24 positive and urine culture is growing gram negative rods. Patient currently on IV Zosyn. 07/27 urine culture grew mixed gram-positive and gram-negative mesfin. Likely contaminant. Total self care deficit: patient unable to be left alone at home, unable to care for self, patient and suffered a fall at home and now is also in the hospital. Head CT reviewed and shows no acute abnormalities -Consulted case management for possible placement -Continue daily PT while admitted Generalized weakness: Likely due to chronic medical conditions -B12 and vitamin D level are low, give replacement Severe Protein Calorie Malnutrition: cachectic, bitemporal wasting, low albumin 1.7, BMI 17, weight 48kg, unhealing wounds Sacral decub stage 4, and right ankle ulcer stage 3, present on admission -Consulted wound care for recommendations 07/25 Dietitian consulted. Recommended cardiac diet with Enlive 3 times a day. Recommended Theragran-M daily. Elevated BUN, suspect mild dehydration, BUN 24 -Improved with IVF Hypokalemia: Mild, potassium 3.4. Magnesium within normal limits. -Potassium supplemented level now normal. HTN, chronic: -Continue home lisinopril, HCTZ. -DC'd losartan with double angiotensin blocking coverage. -Patient reports frequent urination and wants to stop HCTZ. -Add amlodipine. 07/25 blood pressure well controlled currently on lisinopril, amlodipine and lisinopril. Chronic Pain & Anxiety: Continue home meds including Oramorph 30mg po q8h and Xanax 2mg q8h prn. -Continue [place] as needed for breakthrough. 07/25 pain seems to be controlled. Continue management as above. History of CVA with residual right-sided weakness: -Continue Eliquis. Right ankle wound Dr Buitrago evaluated patient - recommends arterial blood flow studies and x- rays. Continue with Santyl daily and dry sterile there are since on the right. Cooper offloading boot for the right leg was ordered. - 07/26 Will order MRI to r/o osteomyelitis. - 07/27 MRI shows osteomyelitis and wound culture from ankle is growing Proteus mirabilis, MRSA, group A beta strep and group D enterococcus.- will consult ID Hypoxemia Patient's o2 saturation in the 90's, patient not in distress - will repeat CXR 07/27 chest x-ray, reviewed by me shows small right pleural effusion with some adjacent consolidation which is likely atelectasis. I will order incentive spirometry. Oxygen saturation is stable at 94% on room air. abdominal pain Patient still complains of abdominal pain. CT of the abdomen and pelvis showed significant increase in the dimension of the common bile duct when compared to and now measures 13 mm. However AST, AST and alkaline phosphatase are normal. There is persistent mild dilation of the intrahepatic biliary ducts. I will consult gastroenterology for further recommendations. DVT prophylaxis: SCDs, Eliquis Discharge Planning Continue to monitor in the medical floor. Pending ID and gastric nephrology consultation. Problem Qualifiers (1) Protein calorie malnutrition: Qualified Codes: E43 - Unspecified severe protein-calorie malnutrition (2) HTN (hypertension): Qualified Codes: I10 - Essential (primary) hypertension Fernando Hart MD Jul 27, 2017 15:18
[2017-07-27 17:14] VITALS: BP 134/67; PULSE 82; RESP 16; TEMP 99.1; O2SAT 94
[2017-07-27 20:00] VITALS: BP 139/63; PULSE 92; RESP 18; TEMP 98.7; O2SAT 94
[2017-07-28] VITALS: BP 155/74; PULSE 83; RESP 20; TEMP 98.4; O2SAT 93
[2017-07-28] MEDS: PIPERACIL-TAZO 3.375 GM PREMIX 50 ML IV SCH ×3 (01:28→13:07)
[2017-07-28] MEDS: ALPRAZolam 1 MG TAB PO PRN ×2 (02:39→12:43)
[2017-07-28] MEDS: ACETAMINOPHEN/HYDROcodone 325 MG/5 MG TAB PO PRN ×3 (02:39→20:26)
[2017-07-28 04:00] VITALS: BP 140/60; PULSE 90; RESP 20; TEMP 98.3; O2SAT 95
[2017-07-28] MEDS: MORPHINE SULFATE 30 MG CONTROLLED RELEASE TAB PO SCH ×3 (06:21→23:25)
[2017-07-28] MEDS: SODIUM CHLORIDE 0.9% FLUSH 10 ML FLUSH IV FLUSH SCH ×2 (07:40→20:25)
--- NOTE | 2017-07-28 07:40 | PD.CONS ---
HPI History of Present Illness This is a 52 year old female presented to the emergency department for evaluation of generalized weakness. She has a history of CVA with right sided weakness. She tells me that her is her primary healthcare interpreter and that she has visiting nurses that periodically check on her. Her has been ill and when the visiting nurse came by, she recommended both go to the ER for further evaluation. Her was admitted to the 7th floor and she was admitted for total self-care deficit, impaired mobility and activities of daily living, protein calorie malnutrition, electrolyte abnormalities, and htn. She reports that on Thursday, she was being transferred from the stretcher to the bed and she had the sudden onset of burning pain in her LLQ. This is related to movement and improves with lying still. It is not related to oral intake. She does occasionally have nausea without vomiting and belching, but states that this is not really a problem at this time. She reports her appetite is good and she has actually gained weight (4 lbs since May). She does have alternating constipation and diarrhea and occasionally will have a small amount of bright red blood on the tissue when she wipes if she strains too hard. A CT scan abdomen and pelvis (07/26/17)----> Significant increase in the dimension of the common bile duct when compared to 06/04/17, now measuring 13mm. Persistent mild dilation of the intrahepatic biliary ducts. Recommend correlation with clinical labs for collaborating evidence of biliary obstruction. Bilateral pleural effusions and bibasilar consolidation, similar to prior. LFTs are unremarkable. We evaluated her in May of this year for anemia and abnormal weight loss. EGD/Colonoscopy (06/03/17)---> chronic gastritis, diverticulosis. She was also evaluated with bone marrow biopsy (06/03/17)---> normocellular bone marrow with trileneage hematopoiesis and erythroid hyperplasia, stainable iron is present (2-3+). Peripheral blood smear with severe hypochromic, microcytic anemia and mild leukopenia. (Maida Pitts) PFSH Past Medical History CVA with right sided paralysis HTN Hyperlipidemia Systemic lupus erythematosus Anxiety Depression Gastritis Diverticulosis Past Surgical History Hernia repair Hysterectomy Right shoulder ORIF Pilonidal cyst removal EGD/Colonoscopy (Maida Pitts) Coded Allergies: Influenza Virus Vaccines (Unverified Allergy, Severe, Respiratory Failure , 07/20/17) sulfamethoxazole (Unverified Allergy, Severe, SKIN PROBLEMS, 07/20/17) trimethoprim (Unverified Allergy, Severe, SKIN PROBLEMS, 07/20/17) Medications Allergies Coded Allergies Type Severity Reaction Last Updated Verified Influenza Virus Vaccines Allergy Severe Respiratory Failure 07/20/17 No sulfamethoxazole Allergy Severe SKIN PROBLEMS 07/20/17 No trimethoprim Allergy Severe SKIN PROBLEMS 07/20/17 No Active Scripts Medications Dose Route/Sig Max Daily Dose Days Date Category Dose Instructions Carafate (Sucralfate) 1 Gram Tab 1 Gm PO BID PRN 07/20/17 Reported On empty stomach Hydrochlorothiazide 12.5 Mg Tab 12.5 Mg PO DAILY 07/20/17 Reported Plavix (Clopidogrel Bisulfate) 75 Mg Tab 75 Mg PO DAILY 07/20/17 Reported Trazodone (Trazodone HCl) 150 Mg Tablet 150 Mg PO HS 07/20/17 Reported Simvastatin 20 Mg Tab 20 Mg PO DAILY 07/20/17 Reported Wellbutrin Xl 24 HR (Bupropion HCl) 300 Mg Tab 300 Mg PO DAILY 07/20/17 Reported Losartan (Losartan Potassium) 50 Mg Tab 50 Mg PO DAILY 07/20/17 Reported Morphine ER (Morphine Sulfate) 30 Mg Tab 30 Mg PO TID 07/20/17 Reported Methocarbamol 500 Mg Tab 500 Mg PO Q6HR PRN 07/20/17 Reported Zoloft (Sertraline HCl) 100 Mg Tab 100 Mg PO BID 07/20/17 Reported Dicyclomine (Dicyclomine HCl) 10 Mg Cap 10 Mg PO BID 07/20/17 Reported Centrum (Multiple Vitamins W/ Minerals) 1 Chew 1 Tab PO DAILY 07/20/17 Reported Alprazolam 2 Mg Tab 2 Mg PO QID PRN 07/20/17 Reported Adult Aspirin EC Low Strength (Aspirin) 81 Mg Tabec 81 Mg PO DAILY 06/30/17 Rx Klor-Con 10 (Potassium Chloride) 10 Meq Tab 10 Meq PO DAILY 30 06/23/17 Rx Lisinopril 20 Mg Tab 20 Mg PO BID 30 06/23/17 Rx Pantoprazole (Pantoprazole Sodium) 40 Mg Tab 40 Mg PO DAILY 1 05/17/17 Rx Family History Mother had CVA, DM Brother with DM Social History Tobacco use: Quit in March 2017 Alcohol use: Denies Illicit drug use: Denies (Maida Pitts JACLYN) Review of Systems Constitutional: COMPLAINS OF: Fatigue, Weight gain, DENIES: Fever, Chills, Change in appetite Respiratory: DENIES: Cough Cardiovascular: DENIES: Chest pain Gastrointestinal: COMPLAINS OF: Abdominal pain, Bloody stools (BRBPR), Constipation, Diarrhea, Nausea, Heartburn, DENIES: Black stools, Vomiting, Swelling of Abdomen, Hematemesis Musculoskeletal: COMPLAINS OF: Muscle aches Hematologic/lymphatic: COMPLAINS OF: Bruising Neurologic: DENIES: Headache Psychiatric: DENIES: Confusion (Maida Pitts JACLYN) GI Exam Vitals I&O Vital Signs Date Time Temp Pulse Resp B/P (MAP) Pulse Ox O2 Delivery O2 Flow Rate FiO2 07/28/17 04:00 98.3 90 20 140/60 (86) 95 07/28/17 04:00 Room Air 07/28/17 00:00 98.4 83 20 155/74 (101) 93 07/27/17 23:16 Room Air 07/27/17 20:00 98.7 92 18 139/63 (88) 94 07/27/17 17:14 99.1 82 16 134/67 (89) 94 07/27/17 12:08 98.8 80 16 122/63 (82) 93 07/27/17 08:42 98.4 82 16 148/71 (96) 90 I/O 07/27/17 07/27/17 07/27/17 07/28/17 07/28/17 07/28/17 07:00 15:00 23:00 07:00 15:00 23:00 Intake Total 200 ml 100 ml 100 ml 410 ml Balance 200 ml 100 ml 100 ml 410 ml Intake Oral 100 ml 360 ml IV Total 100 ml 100 ml 100 ml 50 ml # Voids 4 3 # Bowel Movements 0 1 Imaging Last Impressions Chest X-Ray 07/26/17 0000 Signed Impressions: Service Date/Time: Wednesday, July 26, 2017 15:42 - CONCLUSION: Small right pleural effusion, some adjacent consolidation, likely atelectasis. Juan Medeiros MD Ankle MRI 07/26/17 0000 Signed Impressions: Service Date/Time: Wednesday, July 26, 2017 16:53 - CONCLUSION: Marked enhancement along the lateral edge of the lateral malleolus with a soft tissue defect consistent with osteomyelitis. Juan Medeiros MD Abdomen/Pelvis CT 07/26/17 0000 Signed Impressions: Service Date/Time: Wednesday, July 26, 2017 19:55 - CONCLUSION: 1. Significant increase in the dimension of the common bile duct when compared to 06/04/17, now measuring 13 mm. Persistent mild dilation of the intrahepatic biliary ducts. Recommend correlation with clinical labs for collaborating evidence of biliary obstruction. 2. Bilateral pleural effusions and bibasilar consolidation, similar to prior. Dylan Greenberg MD Ankle X-Ray 07/25/17 0000 Signed Impressions: Service Date/Time: Tuesday, July 25, 2017 20:31 - CONCLUSION: Linear fractures of the distal fibula from diametaphysis to lateral malleolus and associated soft tissue irregularity adjacent to the lateral malleolus. Dylan Greenberg MD Head CT 07/20/17 0000 Signed Impressions: Service Date/Time: Thursday, July 20, 2017 17:33 - CONCLUSION: 1. There is an area of encephalomalacia in the randy suggesting an old area of infarct. 2. No acute intracranial abnormality is identified. 3. 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 Stephen Serrano MD Laboratory Date/Time Source Procedure Growth Status 07/20/17 16:19 Blood Peripheral Aerobic Blood Culture - Final NO GROWTH IN 5 DAYS Complete 07/20/17 16:19 Anaerobic Blood Culture - Final Propionibacterium Acnes Complete 07/24/17 15:45 Urine Clean Catch Urine Culture - Final Complete 07/23/17 09:49 Wound Ankle Gram Stain - Final Complete 07/23/17 09:49 Wound Culture - Final Proteus Mirabilis S. Aureus Mrsa Group A Beta Strep Group D Enterococcus Complete Physical Examination HEENT: Normocephalic; atraumatic; no jaundice CHEST: CTA CARDIAC: RRR ABDOMEN: Soft, very mildy distended, nontender; no hepatosplenomegaly; bowel sounds are present in all four quadrants. EXTREMITIES: No clubbing, cyanosis, or edema. SKIN: Normal; no rash; no jaundice. 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 CT scan abdomen and pelvis (07/26/17)----> Significant increase in the dimension of the common bile duct when compared to 06/04/17, now measuring 13mm. Persistent mild dilation of the intrahepatic biliary ducts. Recommend correlation with clinical labs for collaborating evidence of biliary obstruction. Bilateral pleural effusions and bibasilar consolidation, similar to prior. LFTs are unremarkable. Occasional nausea. Will get MRCP. - Abdominal pain, likely musculoskeletal. Pt developed a burning pain in LLQ/ left side when she was transferred from stretcher to bed. This is only with movement (not food intake) and improves with rest. - Gastritis with belching/occasional nausea. PPI - Alternating constipation, diarrhea. Add Probiotics. Metamucil - Occasional BRBPR. S/P recent colonoscopy. - Chronic anemia. S/P [facility] in May of 2017. EGD/Colonoscopy (06/03/17)---> chronic gastritis, diverticulosis. She was also evaluated with bone marrow biopsy (06/03/17)---> normocellular bone marrow with trileneage hematopoiesis and erythroid hyperplasia, stainable iron is present (2-3+). Peripheral blood smear with severe hypochromic, microcytic anemia and mild leukopenia. - Abnormal weight loss, Malnutrition. Improved per patient. Appetite good, she has gained 4 lbs since her last hospitalization. - Generalized weakness. PT per attending. - Hx CVA- Eliquis, Plavix, ASA per attending. - HTN, Lupus, Hyperlipidemia, Anxiety, Depression, per attending. PLAN: - [facility] - MRCP - Cont. PPI - Add Lactinex - Add Metamucil - Monitor labs - Supportive care - Further recommendations to follow based on results of above - Pt seen and examined by Dr. Lagos and myself and this note is written on her behalf (Maida Pitts) Physician Comments seen, examined agree with above mrcp noted we can order a hida scan , currently no indication of cbd obstruction consider eus when clinically more stable or if lfts worsening (Sarah Lagos MD) Maida Pitts Jul 28, 2017 07:40 Sarah Lagos MD Jul 28, 2017 16:07
[2017-07-28 08:00] VITALS: BP 146/77; PULSE 78; RESP 20; TEMP 98; O2SAT 97
[2017-07-28 08:10] LABS: HEMATOCRIT 26.9 % (35.0-46.0); MEAN CELL VOLUME 80.8 FL (80.0-100.0); MEAN CORPUSCULAR HEMOGLOBIN 26.2 PG (27.0-34.0); MEAN CORPUSCULAR HGB CONC 32.4 % (32.0-36.0); PLATELET COUNT 275 TH/MM3 (150-450); RED BLOOD COUNT 3.33 MIL/MM3 (4.00-5.30); RED CELL DISTRIBUTION WIDTH 19.6 % (11.6-17.2); REVIEW FLAG FINAL; WHITE BLOOD COUNT 3.1 TH/MM3 (4.0-11.0)
[2017-07-28 08:34] LABS: BICARBONATE 29.9 MEQ/L (21.0-32.0); POTASSIUM 3.7 MEQ/L (3.5-5.1)
[2017-07-28 08:36] LABS: INDIRECT BILIRUBIN 0.1 MG/DL (0.0-0.8); TOTAL BILIRUBIN ADULT 0.2 MG/DL (0.2-1.0)
[2017-07-28] MEDS: COLLAGENASE OINT 30 GM TUBE TOPICAL SCH (09:00)
[2017-07-28] MEDS: PANTOPRAZOLE SOD 40 MG DELAYED RELEASE TAB PO SCH (09:13)
[2017-07-28] MEDS: CLOPIDOGREL 75 MG TAB PO SCH (09:13)
[2017-07-28] MEDS: SERTRALINE HCL 100 MG TAB PO SCH ×2 (09:13→20:25)
[2017-07-28] MEDS: ASPIRIN EC 81 MG TABEC PO SCH (09:13)
[2017-07-28] MEDS: DICYCLOMINE HCL 10 MG CAP PO SCH ×2 (09:13→20:25)
[2017-07-28] MEDS: buPROPion HCL 150 MG SUSTAINED RELEASE TAB PO SCH ×2 (09:13→20:25)
[2017-07-28] MEDS: MULTIVITAMINS/MINERALS THERAPEUTIC TAB PO SCH (09:14)
[2017-07-28] MEDS: APIXABAN 5 MG TABLET PO SCH ×2 (09:14→20:25)
[2017-07-28] MEDS: CHOLECALCIFEROL (VIT D3) 5000 UNIT CAP PO SCH (09:14)
[2017-07-28] MEDS: amLODIPine BESYLATE 5 MG TAB PO SCH (09:14)
[2017-07-28] MEDS: PRAVASTATIN SOD 40 MG TAB PO SCH (09:14)
[2017-07-28] MEDS: LISINOPRIL 20 MG TAB PO SCH ×2 (09:14→20:25)
[2017-07-28] MEDS: LACTOBACILLUS ACIDOPHILUS TAB PO SCH ×3 (09:21→17:39)
--- NOTE | 2017-07-28 11:56 | RADRPT ---
EXAM DATE/TIME: 07/28/2017 11:14 [facility] COMPARISON: No previous studies available for comparison. INDICATIONS : Abdominal pain. Dialated common bile duct. MEDICAL HISTORY : Hepatitis C. Hypertension. Cerebrovascular disease. SURGICAL HISTORY : Inguinal hernia repair. Hysterectomy. section. Right shoulder surgery. ENCOUNTER: Subsequent ACUITY: 3 day PAIN SCORE: 0/10 LOCATION: abdomen. TECHNIQUE: Multiplanar, multisequence magnetic resonance imaging of the abdomen was performed. High-resolution 3D dataset was utilized to reconstruct maximum-intensity projection (MIP) images. FINDINGS: Small bilateral pleural effusions are identified.The liver and spleen are free of focal defects. The gallbladder and pancreas demonstrate no abnormality. The adrenal glands are normal. The kidneys demon strate no evidence of solid renal mass or hydronephrosis. No free fluid or abdominal masses are ident ified. No para-aortic adenopathy is seen. There is dilatation of the common duct to 11 mm but no evidence of stone. No stricture is seen. The p ancreatic duct appears normal. CONCLUSION: 1. Dilated common duct to 11 mm without evidence of stone or mass 2. Small bilateral effusions Rickie Hutchinson MD on July 28, 2017 at 11:53 Board Certified Radiologist. This report was verified electronically.
[2017-07-28 12:00] VITALS: BP 123/66; PULSE 85; RESP 20; TEMP 98.1; O2SAT 98
[2017-07-28] MEDS: PSYLLIUM FIBER SF/GF 6 GM POWD PKT PO SCH (12:42)
--- NOTE | 2017-07-28 14:02 | PD.CONS ---
History of Present Illness Service Infectious Disease Consult Requested By Dr Escalante Reason for Consult valuate patient with possible osteo R ankle Primary Care Physician Unknown Diagnoses: History of Present Illness Patient seen and examined. Records reviewed. Patient is a 52-year-old female, with prior history of CVA and right-sided weakness, lives at home with her , apparently fell and was not able to get up. She has been getting weaker. She hit her head but denies any loss of consciousness. Patient was recently hospitalized in May and she was discharge on June 30. has been taking care of her, and has had some home health nursing. On evaluation, she was found to have a decubitus in the sacral region as well as in the right lateral ankle. It was apparently & during her last admission. She has not been doing any care to her right ankle wound. X-ray of the ankle showed some findings of fracture. MRI showed possible osteomyelitis in the lateral malleolus. Podiatry has been evaluating the patient, and a [facility] WBC scan has been ordered. Culture of the ankle wound is growing streptococcus, enterococcus, MRSA, and Proteus. Patient is on Zosyn. She has not been febrile. Her WBC is normal. Infectious disease consultation is requested to make recommendation regarding the possible loss 2 on the right lateral malleolus. Review of Systems Constitutional: COMPLAINS OF: Weight loss, Change in appetite, DENIES: Fever, Chills Eyes: DENIES: Eye pain Ears, nose, mouth, throat: DENIES: Nasal discharge, Oral lesions Respiratory: DENIES: Cough, Shortness of breath Cardiovascular: DENIES: Chest pain, Syncope Gastrointestinal: COMPLAINS OF: Abdominal pain, DENIES: Diarrhea, Nausea, Vomiting, Difficulty Swallowing Genitourinary: COMPLAINS OF: Urinary incontinence, DENIES: Dysuria Musculoskeletal: COMPLAINS OF: Joint pain Integumentary: DENIES: Rash Neurologic: COMPLAINS OF: Localized weakness, DENIES: Headache Psychiatric: DENIES: Hallucinations Past Family Social History Allergies: Coded Allergies: Influenza Virus Vaccines (Unverified Allergy, Severe, Respiratory Failure , 07/20/17) sulfamethoxazole (Unverified Allergy, Severe, SKIN PROBLEMS, 07/20/17) trimethoprim (Unverified Allergy, Severe, SKIN PROBLEMS, 07/20/17) Past Medical History CVA with right sided paralysis Hypertension Hyperlipidemia Lupus Anxiety Depression Past Surgical History Hernia repair Hysterectomy Right shoulder ORIF Pilonidal cyst removal Reported Medications I attest that I obtained, updated or reviewed the home and current medications. Reported Meds & Active Scripts Active Adult Aspirin EC Low Strength (Aspirin) 81 Mg Tabec 81 Mg PO DAILY Klor-Con 10 (Potassium Chloride) 10 Meq Tab 10 Meq PO DAILY 30 Days Lisinopril 20 Mg Tab 20 Mg PO BID 30 Days Pantoprazole (Pantoprazole Sodium) 40 Mg Tab 40 Mg PO DAILY 1 Days Reported Carafate (Sucralfate) 1 Gram Tab 1 Gm PO BID PRN On empty stomach Hydrochlorothiazide 12.5 Mg Tab 12.5 Mg PO DAILY Plavix (Clopidogrel Bisulfate) 75 Mg Tab 75 Mg PO DAILY Trazodone (Trazodone HCl) 150 Mg Tablet 150 Mg PO HS Simvastatin 20 Mg Tab 20 Mg PO DAILY Wellbutrin Xl 24 HR (Bupropion HCl) 300 Mg Tab 300 Mg PO DAILY Losartan (Losartan Potassium) 50 Mg Tab 50 Mg PO DAILY Morphine ER (Morphine Sulfate) 30 Mg Tab 30 Mg PO TID Methocarbamol 500 Mg Tab 500 Mg PO Q6HR PRN Zoloft (Sertraline HCl) 100 Mg Tab 100 Mg PO BID Dicyclomine (Dicyclomine HCl) 10 Mg Cap 10 Mg PO BID Centrum (Multiple Vitamins W/ Minerals) 1 Chew 1 Tab PO DAILY Alprazolam 2 Mg Tab 2 Mg PO QID PRN Active Ordered Medications Tylenol prn [place] prn Xanax prn Norvasc Eliquis Ecotrin Wellbutrin Cholecalciferol Plavix Santyl ointment Bentyl Lactinex Lactulose Prinivil Oramorph MVI Zofran prn Protonix Zosyn IV Pravachol Metamucil [place] Zoloft Carafate Family History Mother has diabetes and previous CVA Brother has diabetes Social History Patient is , lives at home with her Ex-smoker quit in March 2017 Denies alcohol abuse Denies illicit drugs Physical Exam Vital Signs Vital Signs Date Time Temp Pulse Resp B/P (MAP) Pulse Ox O2 Delivery O2 Flow Rate FiO2 07/28/17 12:00 98.1 85 20 123/66 (85) 98 07/28/17 08:00 98.0 78 20 146/77 (100) 97 07/28/17 04:00 98.3 90 20 140/60 (86) 95 07/28/17 04:00 Room Air 07/28/17 00:00 98.4 83 20 155/74 (101) 93 07/27/17 23:16 Room Air 07/27/17 20:00 98.7 92 18 139/63 (88) 94 07/27/17 17:14 99.1 82 16 134/67 (89) 94 Physical Exam GENERAL: Patient is a thin, well-developed female, awake and alert, not in respiratory distress. SKIN: Cool and dry. No generalized rash, no ecchymoses and no evidence of embolic lesions. HEAD: Atraumatic. Normocephalic. No temporal wasting, or tenderness. EYES: [place] conjunctiva. No petechia or hemorrhage. Pupils equal, round and reactive to light. Extraocular movements full and intact. No scleral icterus. No injection or drainage. EARS, NOSE AND THROAT: Nose without bleeding or purulent nasal discharge. No sinus tenderness. Mucous membranes pink and moist. Edentulous, no lesions in oropharynx. NECK: Trachea midline. Supple and not tender, no meningeal signs CARDIOVASCULAR: Regular rate and rhythm. No murmurs, rubs or gallops heard RESPIRATORY: Clear to auscultation. Breath sounds equal bilaterally. No rales , wheezing or rhonchi ABDOMEN: Soft, non-tender, mildly distended. Bowel sounds present and normoactive. No guarding. No rebound. No organomegaly. EXTREMITIES: No clubbing, cyanosis, or edema. Cool feet, no cyanosis or mottling. No joint effusion, has good ROM. No calf tenderness. There is a quarter size ulcer over the lateral malleolus, with some slough, and some exposed tendon, mild erythema and tender on palpation, (+) odor. NEUROLOGICAL: Awake and alert. Cranial nerves grossly intact. R sided weakness PSYCHIATRIC: Normal affect, calm and cooperative. BACK: There is a decubitus ulcer over the coccyx, stage 3-4, about 2 inch diameter, with some slough and some red tissue, no purulence, no odor LINE: No evidence of infection Laboratory Laboratory Tests Test 07/28/17 06:50 White Blood Count 3.1 Red Blood Count 3.33 Hemoglobin 8.7 Hematocrit 26.9 Mean Corpuscular Volume 80.8 Mean Corpuscular Hemoglobin 26.2 Mean Corpuscular Hemoglobin Concent 32.4 Red Cell Distribution Width 19.6 Platelet Count 275 Mean Platelet Volume 7.0 Blood Urea Nitrogen 9 Creatinine 0.38 Random Glucose 61 Total Protein 6.2 Albumin 1.7 Calcium Level 8.1 Alkaline Phosphatase 69 Aspartate Amino Transf (AST/SGOT) 17 Alanine Aminotransferase (ALT/SGPT) 10 Total Bilirubin 0.2 Direct Bilirubin 0.1 Sodium Level 140 Potassium Level 3.7 Chloride Level 105 Carbon Dioxide Level 29.9 Anion Gap 5 Estimat Glomerular Filtration Rate 176 Indirect Bilirubin 0.1 Date/Time Source Procedure Growth Status 07/20/17 16:19 Blood Peripheral Aerobic Blood Culture - Final NO GROWTH IN 5 DAYS Complete 07/20/17 16:19 Anaerobic Blood Culture - Final Propionibacterium Acnes Complete 07/24/17 15:45 Urine Clean Catch Urine Culture - Final Complete 07/23/17 09:49 Wound Ankle Gram Stain - Final Complete 07/23/17 09:49 Wound Culture - Final Proteus Mirabilis S. Aureus Mrsa Group A Beta Strep Group D Enterococcus Complete Result Diagram: 07/28/17 0650 07/28/17 0650 Imaging RADIOLOGY STUDIES/FILMS REVIEWED Chest X-Ray 07/26/17 0000 Signed Impressions: Service Date/Time: Wednesday, July 26, 2017 15:42 - CONCLUSION: Small right pleural effusion, some adjacent consolidation, likely atelectasis. Juan Medeiros MD Ankle MRI 07/26/17 0000 Signed Impressions: Service Date/Time: Wednesday, July 26, 2017 16:53 - CONCLUSION: Marked enhancement along the lateral edge of the lateral malleolus with a soft tissue defect consistent with osteomyelitis. Juan Medeiros MD Abdomen/Pelvis CT 07/26/17 0000 Signed Impressions: Service Date/Time: Wednesday, July 26, 2017 19:55 - CONCLUSION: 1. Significant increase in the dimension of the common bile duct when compared to 06/04/17, now measuring 13 mm. Persistent mild dilation of the intrahepatic biliary ducts. Recommend correlation with clinical labs for collaborating evidence of biliary obstruction. 2. Bilateral pleural effusions and bibasilar consolidation, similar to prior. Dylan Greenberg MD Ankle X-Ray 07/25/17 0000 Signed Impressions: Service Date/Time: Tuesday, July 25, 2017 20:31 - CONCLUSION: Linear fractures of the distal fibula from diametaphysis to lateral malleolus and associated soft tissue irregularity adjacent to the lateral malleolus. Dylan Greenberg MD Head CT 07/20/17 0000 Signed Impressions: Service Date/Time: Thursday, July 20, 2017 17:33 - CONCLUSION: 1. There is an area of encephalomalacia in the randy suggesting an old area of infarct. 2. No acute intracranial abnormality is identified. 3. 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 Stephen Serrano MD Assessment and Plan Assessment and Plan IMPRESSION Ulcer over lateral malleolus R with some cellulitis, ?osteo, bone not exposed - MRI (+), - also with evidence of non-displaced fracture in fibula on plain film - due to pressure Sacral decubitus Hx CVA with R sided weakness One (+) BC with propiobacterium, possibly a contaminant RECOMMENDATION IV Vanco PO Levaquin ESR, CRP Podiatry doing work-up for the ankle ulcer Wound care Will determine if long course of IV needed once work-up is completed I will follow along with you Thank you for this consultation Discussed Condition With Explained plan to the patient Beba Bray MD Jul 28, 2017 14:02
[2017-07-28] MEDS ORDERED: Vancomycin Consult Pharmacy 1 EA OTHER SCH (14:15)
[2017-07-28] MEDS ORDERED: VANCOMYCIN INJ 1,000 MG in SODIUM CHLOR 0.9% 250 ML INJ 250 ML IV ONE (14:15)
[2017-07-28] MEDS: LEVOFLOXACIN 750 MG TAB PO SCH (15:36)
[2017-07-28 16:00] VITALS: BP 117/56; PULSE 73; RESP 20; TEMP 98.1; O2SAT 96
--- NOTE | 2017-07-28 16:45 | HHI.PR ---
Subjective Remarks Patient c/o chills Denies fevers still c/o poor appetite vital signs stable Objective Vitals Vital Signs Date Time Temp Pulse Resp B/P (MAP) Pulse Ox O2 Delivery O2 Flow Rate FiO2 07/28/17 12:00 98.1 85 20 123/66 (85) 98 07/28/17 08:00 98.0 78 20 146/77 (100) 97 07/28/17 04:00 98.3 90 20 140/60 (86) 95 07/28/17 04:00 Room Air 07/28/17 00:00 98.4 83 20 155/74 (101) 93 07/27/17 23:16 Room Air 07/27/17 20:00 98.7 92 18 139/63 (88) 94 07/27/17 17:14 99.1 82 16 134/67 (89) 94 I/O 07/27/17 07/27/17 07/27/17 07/28/17 07/28/17 07/28/17 07:00 15:00 23:00 07:00 15:00 23:00 Intake Total 200 ml 100 ml 100 ml 410 ml Balance 200 ml 100 ml 100 ml 410 ml Intake Oral 100 ml 360 ml IV Total 100 ml 100 ml 100 ml 50 ml # Voids 4 3 # Bowel Movements 0 1 Result Diagram: 07/28/1750 07/28/17 0650 Objective Remarks GENERAL: Well-developed mal nourished thin, cachectic, chronically ill- appearing middle-aged female. Appears generally uncomfortable, but in no acute distress. SKIN: Warm and dry. Right heel with clean dressing. HEENT: Normocephalic. Pupils equal and round. Mucous membranes pink and moist. CARDIOVASCULAR: Regular rate and rhythm. No murmur appreciated. RESPIRATORY: No accessory muscle use. Clear to auscultation. Breath sounds equal bilaterally. GASTROINTESTINAL: Abdomen soft, tender to palpation of RUQ and lower abdomen, nondistended. Bowel sounds x4. MUSCULOSKELETAL: No obvious deformities. No clubbing or cyanosis. No edema. NEUROLOGICAL: Awake and alert. Right-sided weakness. Moves left side spontaneously. Normal speech. PSYCHIATRIC: Appropriate mood and affect; insight and judgment normal. A/P Problem List: (1) Protein calorie malnutrition ICD Code: E46 - Unspecified protein-calorie malnutrition Status: Chronic (2) Total self-care deficit ICD Code: R41.89 - Other symptoms and signs involving cognitive functions and awareness Status: Acute (3) Hypokalemia ICD Code: E87.6 - Hypokalemia Status: Resolved (4) HTN (hypertension) ICD Code: I10 - Essential (primary) hypertension Status: Chronic (5) Impaired mobility and activities of daily living ICD Code: Z74.09 - Other reduced mobility Status: Acute Assessment and Plan 52 y/o female with a history CVA with right sided paralysis, HTN, HLD, Lupus, anxiety and depression was sent to the ED by her home health nurse for weakness evaluation. Low-grade fevers: Tmax 99.7 on 07/23. Symptoms more consistent with UTI. Other potential source is right ankle wound. Does not meet sepsis criteria at this time. -Repeat UA and CBC. -Right ankle wound culture collected by wound care physician, result pending -Antibiotics and potential ID consult pending results of urine culture, wound culture, or if medical condition worsens 07/25 UA on 07/24 positive and urine culture is growing gram negative rods. Patient currently on IV Zosyn. 07/27 urine culture grew mixed gram-positive and gram-negative mesfin. Likely contaminant. Total self care deficit: patient unable to be left alone at home, unable to care for self, patient and suffered a fall at home and now is also in the hospital. Head CT reviewed and shows no acute abnormalities -Consulted case management for possible placement -Continue daily PT while admitted Generalized weakness: Likely due to chronic medical conditions -B12 and vitamin D level are low, give replacement Severe Protein Calorie Malnutrition: cachectic, bitemporal wasting, low albumin 1.7, BMI 17, weight 48kg, unhealing wounds Sacral decub stage 4, and right ankle ulcer stage 3, present on admission -Consulted wound care for recommendations 07/25 Dietitian consulted. Recommended cardiac diet with Enlive 3 times a day. Recommended Theragran-M daily. Elevated BUN, suspect mild dehydration, BUN 24 -Improved with IVF Hypokalemia: Mild, potassium 3.4. Magnesium within normal limits. -Potassium supplemented level now normal. HTN, chronic: -Continue home lisinopril, HCTZ. -DC'd losartan with double angiotensin blocking coverage. -Patient reports frequent urination and wants to stop HCTZ. -Add amlodipine. 07/25 blood pressure well controlled currently on lisinopril, amlodipine and lisinopril. Chronic Pain & Anxiety: Continue home meds including Oramorph 30mg po q8h and Xanax 2mg q8h prn. -Continue [place] as needed for breakthrough. 07/25 pain seems to be controlled. Continue management as above. History of CVA with residual right-sided weakness: -Continue Eliquis. Right ankle wound Dr Buitrago evaluated patient - recommends arterial blood flow studies and x- rays. Continue with Santyl daily and dry sterile there are since on the right. Cooper offloading boot for the right leg was ordered. - 07/26 Will order MRI to r/o osteomyelitis. - 07/27 MRI shows osteomyelitis and wound culture from ankle is growing Proteus mirabilis, MRSA, group A beta strep and group D enterococcus.- will consult ID - 07/28 ID consulted. Antibiotics changed to IV Vancomycin and oral Levaquin. Hypoxemia Patient's o2 saturation in the 90's, patient not in distress - will repeat CXR 07/28 Incentive spirometry. Repeat CXR as above. abdominal pain Patient still complains of abdominal pain. CT of the abdomen and pelvis showed significant increase in the dimension of the common bile duct when compared to and now measures 13 mm. However AST, AST and alkaline phosphatase are normal. There is persistent mild dilation of the intrahepatic biliary ducts. 07/28 GI consult noted. HIDA scan vs EUS. follow up GI recommendations. Poor Appetite Will RX Megace. DVT prophylaxis: SCDs, Eliquis Discharge Planning . Problem Qualifiers (1) Protein calorie malnutrition: Qualified Codes: E43 - Unspecified severe protein-calorie malnutrition (2) HTN (hypertension): Qualified Codes: I10 - Essential (primary) hypertension Fernando Hart MD Jul 28, 2017 16:45
[2017-07-28] MEDS: VANCOMYCIN INJ 750 MG in SODIUM CHLOR 0.9% 250 ML INJ 250 ML IV SCH (17:39)
[2017-07-28 20:17] VITALS: BP 127/81; PULSE 80; RESP 18; TEMP 97.8; O2SAT 93
[2017-07-29] VITALS (7 sets, daily range): BP systolic 128–147; BP diastolic 59–82; PULSE 78–89; RESP 16–20; TEMP 97.6–98.5; O2SAT 94–97
[2017-07-29] MEDS: VANCOMYCIN INJ 750 MG in SODIUM CHLOR 0.9% 250 ML INJ 250 ML IV SCH ×2 (05:01→15:17)
[2017-07-29] MEDS: MORPHINE SULFATE 30 MG CONTROLLED RELEASE TAB PO SCH ×3 (06:07→23:09)
[2017-07-29] MEDS: SODIUM CHLORIDE 0.9% FLUSH 10 ML FLUSH IV FLUSH SCH ×2 (07:28→20:44)
[2017-07-29] MEDS: CHOLECALCIFEROL (VIT D3) 5000 UNIT CAP PO SCH (08:33)
[2017-07-29] MEDS: ACETAMINOPHEN/HYDROcodone 325 MG/5 MG TAB PO PRN ×2 (08:34→20:42)
[2017-07-29] MEDS: ALPRAZolam 1 MG TAB PO PRN ×2 (08:34→20:43)
[2017-07-29] MEDS: amLODIPine BESYLATE 5 MG TAB PO SCH (08:34)
[2017-07-29] MEDS: CLOPIDOGREL 75 MG TAB PO SCH (08:35)
[2017-07-29] MEDS: PANTOPRAZOLE SOD 40 MG DELAYED RELEASE TAB PO SCH (08:35)
[2017-07-29] MEDS: APIXABAN 5 MG TABLET PO SCH ×2 (08:36→20:44)
[2017-07-29] MEDS: MULTIVITAMINS/MINERALS THERAPEUTIC TAB PO SCH (08:36)
[2017-07-29] MEDS: MEGESTROL ACETATE SUSP 400 MG/10 ML CUP PO SCH (08:36)
[2017-07-29] MEDS: DICYCLOMINE HCL 10 MG CAP PO SCH ×2 (08:36→20:44)
[2017-07-29] MEDS: PRAVASTATIN SOD 40 MG TAB PO SCH (08:36)
[2017-07-29] MEDS: buPROPion HCL 150 MG SUSTAINED RELEASE TAB PO SCH ×2 (08:36→20:44)
[2017-07-29] MEDS: ASPIRIN EC 81 MG TABEC PO SCH (08:36)
[2017-07-29] MEDS: PSYLLIUM FIBER SF/GF 6 GM POWD PKT PO SCH (08:36)
[2017-07-29] MEDS: LEVOFLOXACIN 750 MG TAB PO SCH (08:36)
[2017-07-29] MEDS: LACTOBACILLUS ACIDOPHILUS TAB PO SCH ×3 (08:36→17:35)
[2017-07-29] MEDS: SERTRALINE HCL 100 MG TAB PO SCH ×2 (08:36→20:44)
[2017-07-29] MEDS: COLLAGENASE OINT 30 GM TUBE TOPICAL SCH (08:37)
[2017-07-29] MEDS: LISINOPRIL 20 MG TAB PO SCH ×2 (08:52→20:43)
[2017-07-29 10:39] LABS: ANION GAP 8 MEQ/L (5-15); AST (GOT) 27 U/L (15-37); BICARBONATE 24.8 MEQ/L (21.0-32.0); BLOOD UREA NITROGEN 10 MG/DL (7-18); CHLORIDE 106 MEQ/L (98-107); GLOMERULAR FILTRATION RATE 176 ML/MIN (>89); SODIUM (NA) 139 MEQ/L (136-145)
[2017-07-29 10:44] LABS: HEMATOCRIT 29.1 % (35.0-46.0); MEAN CELL VOLUME 81.9 FL (80.0-100.0); MEAN CORPUSCULAR HEMOGLOBIN 26.3 PG (27.0-34.0); MEAN CORPUSCULAR HGB CONC 32.1 % (32.0-36.0); PLATELET COUNT 256 TH/MM3 (150-450); RED BLOOD COUNT 3.55 MIL/MM3 (4.00-5.30); RED CELL DISTRIBUTION WIDTH 19.5 % (11.6-17.2); WHITE BLOOD COUNT 7.2 TH/MM3 (4.0-11.0)
[2017-07-29 10:49] LABS: ALKALINE PHOSPHATASE 75 U/L (45-117); ALT (GPT) 9 U/L (10-53); TOTAL BILIRUBIN ADULT 0.3 MG/DL (0.2-1.0)
[2017-07-29 10:50] LABS: HEMO FLAGS AUTO DIFF
--- NOTE | 2017-07-29 11:48 | HHI.GIFU ---
Subjective Remarks Resting in bed. No n/v, abdominal pain. States she does have porphyria and is followed by Dr. Gutierres. Tolerating diet. (Maida Pitts) Objective Vitals I&O Vital Signs Date Time Temp Pulse Resp B/P (MAP) Pulse Ox O2 Delivery O2 Flow Rate FiO2 07/29/17 09:51 Room Air 07/29/17 08:00 98.3 89 18 147/70 (95) 94 07/29/17 03:43 97.8 78 18 142/82 (102) 97 07/29/17 00:24 97.6 79 18 146/70 (95) 97 07/28/17 23:27 Room Air 07/28/17 20:17 97.8 80 18 127/81 (96) 93 07/28/17 18:26 Room Air 07/28/17 18:07 Room Air 07/28/17 16:00 98.1 73 20 117/56 (76) 96 07/28/17 12:00 98.1 85 20 123/66 (85) 98 I/O 07/28/17 07/28/17 07/28/17 07/29/17 07/29/17 07/29/17 07:00 15:00 23:00 07:00 15:00 23:00 Intake Total 410 ml 720 ml 257.5 ml Output Total 900 ml Balance 410 ml -180 ml 257.5 ml Intake Oral 360 ml 720 ml IV Total 50 ml 257.5 ml Output Urine Total 900 ml # Voids 3 # Bowel Movements 1 0 Laboratory Laboratory Tests Test 07/29/17 09:22 White Blood Count 7.2 Red Blood Count 3.55 Hemoglobin 9.3 Hematocrit 29.1 Mean Corpuscular Volume 81.9 Mean Corpuscular Hemoglobin 26.3 Mean Corpuscular Hemoglobin Concent 32.1 Red Cell Distribution Width 19.5 Platelet Count 256 Mean Platelet Volume 7.6 CBC Comment AUTO DIFF Blood Urea Nitrogen 10 Creatinine 0.38 Random Glucose 86 Total Protein 6.3 Albumin 1.8 Calcium Level 8.4 Phosphorus Level 3.0 Magnesium Level 2.0 Alkaline Phosphatase 75 Aspartate Amino Transf (AST/SGOT) 27 Alanine Aminotransferase (ALT/SGPT) 9 Total Bilirubin 0.3 Sodium Level 139 Potassium Level 4.0 Chloride Level 106 Carbon Dioxide Level 24.8 Anion Gap 8 Estimat Glomerular Filtration Rate 176 Date/Time Source Procedure Growth Status 07/20/17 16:19 Blood Peripheral Aerobic Blood Culture - Final NO GROWTH IN 5 DAYS Complete 07/20/17 16:19 Anaerobic Blood Culture - Final Propionibacterium Acnes Complete 07/24/17 15:45 Urine Clean Catch Urine Culture - Final Complete 07/23/17 09:49 Wound Ankle Gram Stain - Final Complete 07/23/17 09:49 Wound Culture - Final Proteus Mirabilis S. Aureus Mrsa Group A Beta Strep Group D Enterococcus Complete Imaging Last Impressions Cholangiopancreatography MRI 07/28/17 0000 Signed Impressions: Service Date/Time: Friday, July 28, 2017 11:14 - CONCLUSION: 1. Dilated common duct to 11 mm without evidence of stone or mass 2. Small bilateral effusions Rickie Hutchinson MD Chest X-Ray 07/26/17 0000 Signed Impressions: Service Date/Time: Wednesday, July 26, 2017 15:42 - CONCLUSION: Small right pleural effusion, some adjacent consolidation, likely atelectasis. Juan Medeiros MD Ankle MRI 07/26/17 0000 Signed Impressions: Service Date/Time: Wednesday, July 26, 2017 16:53 - CONCLUSION: Marked enhancement along the lateral edge of the lateral malleolus with a soft tissue defect consistent with osteomyelitis. Juan Medeiros MD Abdomen/Pelvis CT 07/26/17 0000 Signed Impressions: Service Date/Time: Wednesday, July 26, 2017 19:55 - CONCLUSION: 1. Significant increase in the dimension of the common bile duct when compared to 06/04/17, now measuring 13 mm. Persistent mild dilation of the intrahepatic biliary ducts. Recommend correlation with clinical labs for collaborating evidence of biliary obstruction. 2. Bilateral pleural effusions and bibasilar consolidation, similar to prior. Dylan Greenberg MD Ankle X-Ray 07/25/17 0000 Signed Impressions: Service Date/Time: Tuesday, July 25, 2017 20:31 - CONCLUSION: Linear fractures of the distal fibula from diametaphysis to lateral malleolus and associated soft tissue irregularity adjacent to the lateral malleolus. Dylan Greenberg MD Head CT 07/20/17 0000 Signed Impressions: Service Date/Time: Thursday, July 20, 2017 17:33 - CONCLUSION: 1. There is an area of encephalomalacia in the randy suggesting an old area of infarct. 2. No acute intracranial abnormality is identified. 3. 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 Stephen Serrano MD Physical Exam HEENT: Normocephalic; atraumatic; no jaundice CHEST: CTA CARDIAC: RRR ABDOMEN: Soft, very mildy distended, nontender; no hepatosplenomegaly; bowel sounds are present in all four quadrants. EXTREMITIES: No clubbing, cyanosis, or edema. SKIN: Normal; no rash; no jaundice. REIMBURSEMENT CONSULTANT: Alert/oriented, right sided weakness (Maida Pitts PRIMARY SUBSTANCE ABUSE COUNSELOR) Assessment and Plan Plan ASSESSMENT: - Biliary dilatation on CT scan. CT scan abdomen and pelvis (07/26/17)----> Significant increase in the dimension of the common bile duct when compared to 06/04/17, now measuring 13mm. Persistent mild dilation of the intrahepatic biliary ducts. Recommend correlation with clinical labs for collaborating evidence of biliary obstruction. Bilateral pleural effusions and bibasilar consolidation, similar to prior. LFTs are unremarkable. Occasional nausea. MRCP without contrast (07/28/17)----> Dilated common duct to 11 mm but no evidence of stone or mass. Small bilateral effusions. Will get HIDA, may need EUS as outpatient. - Abdominal pain, likely musculoskeletal. Pt developed a burning pain in LLQ/ left side when she was transferred from stretcher to bed. This is only with movement (not food intake) and improves with rest. Improved. - Pt reports that she has a hx of porphyria. - Gastritis with belching/occasional nausea. PPI - Alternating constipation, diarrhea. Probiotics. Metamucil - Occasional BRBPR. S/P recent colonoscopy. - Chronic anemia. S/P [facility] in May of 2017. EGD/Colonoscopy (06/03/17)---> chronic gastritis, diverticulosis. She was also evaluated with bone marrow biopsy (06/03/17)---> normocellular bone marrow with trileneage hematopoiesis and erythroid hyperplasia, stainable iron is present (2-3+). Peripheral blood smear with severe hypochromic, microcytic anemia and mild leukopenia. - Abnormal weight loss, Malnutrition. Improved per patient. Appetite good, she has gained 4 lbs since her last hospitalization. Megace - Generalized weakness. PT per attending. - Hx CVA- Eliquis, Plavix, ASA per attending. - HTN, Lupus, Hyperlipidemia, Anxiety, Depression, per attending. PLAN: - FARIDA - HIDA Scan - Cont. PPI - Cont. Lactinex - Cont. Metamucil - Monitor labs - Supportive care - Possible EUS as outpatient - Consider hematology evaluation for porphyria - Further recommendations to follow based on results of above - Pt seen and examined by Dr. Lagos and myself and this note is written on her behalf (Maida Pitts) Maida Pitts Jul 29, 2017 11:48 Sarah Lagos MD Jul 29, 2017 18:35
[2017-07-29 12:15] LABS: BANDS 1 % (0-6); BASOPHILS 1 % (0-2); CORRECTED NUCLEATED RBC 1 /100 WBC (0-0); EOSINOPHILS 1 % (0-4); NEUTROPHIL # MANUAL DIFF 4.1 TH/MM3 (1.8-7.7); POLYS (SEG NEUTROPHILS) 56 % (16-70); WBC DIFF SAMPLE 100
[2017-07-29 12:39] LABS: SCAN/DIFF FINAL DIFF MANUAL
[2017-07-29 12:40] LABS: PLATELET ESTIMATE SMEAR NORMAL (NORMAL); PLATELET MORPHOLOGY NORMAL (NORMAL)
--- NOTE | 2017-07-29 12:52 | HHI.IDPN ---
Subjective Subjective Remarks Patient is a 52-year-old female, with prior history of CVA and right-sided weakness, lives at home with her , apparently fell and was not able to get up. She has been getting weaker. She hit her head but denies any loss of consciousness. Patient was recently hospitalized in May and she was discharge on June 30. has been taking care of her, and has had some home health nursing. On evaluation, she was found to have a decubitus in the sacral region as well as in the right lateral ankle. It was apparently & during her last admission. She has not been doing any care to her right ankle wound. X-ray of the ankle showed some findings of fracture. MRI showed possible osteomyelitis in the lateral malleolus. Podiatry has been evaluating the patient, and a [facility] WBC scan has been ordered. Culture of the ankle wound is growing streptococcus, enterococcus, MRSA, and Proteus. Patient is on Zosyn. She has not been febrile. Her WBC is normal. Notes reviewed Temps ok Going for HIDA scan No new complaints ESR 40 CRP 6.43 WBC up to 7 Antibiotics Vancomycin Levaquin Lines PIV Past Medical History CVA with right sided paralysis Hypertension Hyperlipidemia Lupus Anxiety Depression Past Surgical History Hernia repair Hysterectomy Right shoulder ORIF Pilonidal cyst removal Allergies: Coded Allergies: Influenza Virus Vaccines (Unverified Allergy, Severe, Respiratory Failure , 07/20/17) sulfamethoxazole (Unverified Allergy, Severe, SKIN PROBLEMS, 07/20/17) trimethoprim (Unverified Allergy, Severe, SKIN PROBLEMS, 07/20/17) Objective . Vital Signs Date Time Temp Pulse Resp B/P (MAP) Pulse Ox O2 Delivery O2 Flow Rate FiO2 07/29/17 12:00 98.0 86 18 134/59 (84) 95 07/29/17 09:51 Room Air 07/29/17 08:00 98.3 89 18 147/70 (95) 94 07/29/17 03:43 97.8 78 18 142/82 (102) 97 07/29/17 00:24 97.6 79 18 146/70 (95) 97 07/28/17 23:27 Room Air 07/28/17 20:17 97.8 80 18 127/81 (96) 93 07/28/17 18:26 Room Air 07/28/17 18:07 Room Air 07/28/17 16:00 98.1 73 20 117/56 (76) 96 . Laboratory Tests Test 07/28/17 06:50 07/29/17 09:22 White Blood Count 3.1 TH/MM3 7.2 TH/MM3 Red Blood Count 3.33 MIL/MM3 3.55 MIL/MM3 Hemoglobin 8.7 GM/DL 9.3 GM/DL Hematocrit 26.9 % 29.1 % Mean Corpuscular Volume 80.8 FL 81.9 FL Mean Corpuscular Hemoglobin 26.2 PG 26.3 PG Mean Corpuscular Hemoglobin Concent 32.4 % 32.1 % Red Cell Distribution Width 19.6 % 19.5 % Platelet Count 275 TH/MM3 256 TH/MM3 Mean Platelet Volume 7.0 FL 7.6 FL Erythrocyte Sedimentation Rate 40 mm/hr CBC Comment AUTO DIFF Differential Total Cells Counted 100 Neutrophils % (Manual) 56 % Band Neutrophils % 1 % Lymphocytes % 31 % Monocytes % 10 % Eosinophils % 1 % Basophils % 1 % Neutrophils # (Manual) 4.1 TH/MM3 Nucleated Red Blood Cells 1 /100 WBC Differential Comment FINAL DIFF MANUAL Atypical Lymphocytes % Platelet Estimate NORMAL Platelet Morphology Comment NORMAL Laboratory Tests Test 07/28/17 06:50 07/29/17 09:22 Blood Urea Nitrogen 9 MG/DL 10 MG/DL Creatinine 0.38 MG/DL 0.38 MG/DL Random Glucose 61 MG/DL 86 MG/DL Total Protein 6.2 GM/DL 6.3 GM/DL Albumin 1.7 GM/DL 1.8 GM/DL Calcium Level 8.1 MG/DL 8.4 MG/DL Alkaline Phosphatase 69 U/L 75 U/L Aspartate Amino Transf (AST/SGOT) 17 U/L 27 U/L Alanine Aminotransferase (ALT/SGPT) 10 U/L 9 U/L Total Bilirubin 0.2 MG/DL 0.3 MG/DL Direct Bilirubin 0.1 MG/DL Sodium Level 140 MEQ/L 139 MEQ/L Potassium Level 3.7 MEQ/L 4.0 MEQ/L Chloride Level 105 MEQ/L 106 MEQ/L Carbon Dioxide Level 29.9 MEQ/L 24.8 MEQ/L Anion Gap 5 MEQ/L 8 MEQ/L Estimat Glomerular Filtration Rate 176 ML/MIN 176 ML/MIN Indirect Bilirubin 0.1 MG/DL C-Reactive Protein 6.43 MG/DL Phosphorus Level 3.0 MG/DL Magnesium Level 2.0 MG/DL Imaging Cholangiopancreatography MRI 07/28/17 0000 Signed Impressions: Service Date/Time: Friday, July 28, 2017 11:14 - CONCLUSION: 1. Dilated common duct to 11 mm without evidence of stone or mass 2. Small bilateral effusions Rickie Hutchinson MD Chest X-Ray 07/26/17 0000 Signed Impressions: Service Date/Time: Wednesday, July 26, 2017 15:42 - CONCLUSION: Small right pleural effusion, some adjacent consolidation, likely atelectasis. Juan Medeiros MD Ankle MRI 07/26/17 0000 Signed Impressions: Service Date/Time: Wednesday, July 26, 2017 16:53 - CONCLUSION: Marked enhancement along the lateral edge of the lateral malleolus with a soft tissue defect consistent with osteomyelitis. Juan Medeiros MD Abdomen/Pelvis CT 07/26/17 0000 Signed Impressions: Service Date/Time: Wednesday, July 26, 2017 19:55 - CONCLUSION: 1. Significant increase in the dimension of the common bile duct when compared to 06/04/17, now measuring 13 mm. Persistent mild dilation of the intrahepatic biliary ducts. Recommend correlation with clinical labs for collaborating evidence of biliary obstruction. 2. Bilateral pleural effusions and bibasilar consolidation, similar to prior. Dylan Greenberg MD Ankle X-Ray 07/25/17 0000 Signed Impressions: Service Date/Time: Tuesday, July 25, 2017 20:31 - CONCLUSION: Linear fractures of the distal fibula from diametaphysis to lateral malleolus and associated soft tissue irregularity adjacent to the lateral malleolus. Dylan Greenberg MD Head CT 07/20/17 0000 Signed Impressions: Service Date/Time: Thursday, July 20, 2017 17:33 - CONCLUSION: 1. There is an area of encephalomalacia in the randy suggesting an old area of infarct. 2. No acute intracranial abnormality is identified. 3. 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 Stephen Serrano MD Physical Exam GENERAL: Patient is a thin, well-developed female, awake and alert, not in respiratory distress. SKIN: Cool and dry. No generalized rash, no ecchymoses and no evidence of embolic lesions. HEAD: Atraumatic. Normocephalic. No temporal wasting, or tenderness. EYES: [place] conjunctiva. No petechia or hemorrhage. Pupils equal, round and reactive to light. Extraocular movements full and intact. No scleral icterus. No injection or drainage. EARS, NOSE AND THROAT: Nose without bleeding or purulent nasal discharge. Mucous membranes pink and moist. Edentulous, no lesions in oropharynx. NECK: Trachea midline. Supple and not tender, no meningeal signs CARDIOVASCULAR: Regular rate and rhythm. No murmurs, rubs or gallops heard RESPIRATORY: Clear to auscultation. Breath sounds equal bilaterally. No rales , wheezing or rhonchi ABDOMEN: Soft, non-tender, mildly distended. Bowel sounds present and normoactive. No guarding. No rebound. No organomegaly. EXTREMITIES: No clubbing, cyanosis, or edema. Cool feet, no cyanosis or mottling. No calf tenderness. There is a quarter size ulcer over the lateral malleolus, with some slough, and some exposed tendon, mild erythema and tender on palpation, (+) odor. NEUROLOGICAL: Awake and alert. Cranial nerves grossly intact. R sided weakness PSYCHIATRIC: Normal affect, calm and cooperative. BACK: There is a decubitus ulcer over the coccyx, stage 3-4, about 2 inch diameter, with some slough and some red tissue, no purulence, no odor LINE: No evidence of infection Assessment & Plan Remarks IMPRESSION Ulcer over lateral malleolus R with some cellulitis, ?osteo, bone not exposed - MRI (+), - also with evidence of non-displaced fracture in fibula on plain film - due to pressure Sacral decubitus Hx CVA with R sided weakness One (+) BC with propionibacterium, possibly a contaminant RECOMMENDATION Continue IV Vanco Continue PO Levaquin Podiatry doing work-up for the ankle ulcer Wound care GI work-up in progress for dil CBD, elevated LFT Will determine if long course of IV needed once work-up is completed D/W Beba Kuo MD Jul 29, 2017 12:52
--- NOTE | 2017-07-29 17:00 | HHI.PR ---
Subjective Remarks Patient states she has poor appetite and some burping. denies cp/sob denies diarrhea Objective Vitals Vital Signs Date Time Temp Pulse Resp B/P (MAP) Pulse Ox O2 Delivery O2 Flow Rate FiO2 07/29/17 16:00 98.0 82 18 128/72 (90) 97 07/29/17 12:00 98.0 86 18 134/59 (84) 95 07/29/17 09:51 Room Air 07/29/17 08:00 98.3 89 18 147/70 (95) 94 07/29/17 03:43 97.8 78 18 142/82 (102) 97 07/29/17 00:24 97.6 79 18 146/70 (95) 97 07/28/17 23:27 Room Air 07/28/17 20:17 97.8 80 18 127/81 (96) 93 07/28/17 18:26 Room Air 07/28/17 18:07 Room Air I/O 07/28/17 07/28/17 07/28/17 07/29/17 07/29/17 07/29/17 07:00 15:00 23:00 07:00 15:00 23:00 Intake Total 410 ml 720 ml 257.5 ml Output Total 900 ml Balance 410 ml -180 ml 257.5 ml Intake Oral 360 ml 720 ml IV Total 50 ml 257.5 ml Output Urine Total 900 ml # Voids 3 # Bowel Movements 1 0 Result Diagram: 07/29/1792107/29/17921 Imaging Last Impressions Cholangiopancreatography MRI 07/28/17 0000 Signed Impressions: Service Date/Time: Friday, July 28, 2017 11:14 - CONCLUSION: 1. Dilated common duct to 11 mm without evidence of stone or mass 2. Small bilateral effusions Rickie Hutchinson MD Chest X-Ray 07/26/17 0000 Signed Impressions: Service Date/Time: Wednesday, July 26, 2017 15:42 - CONCLUSION: Small right pleural effusion, some adjacent consolidation, likely atelectasis. Juan Medeiros MD Ankle MRI 07/26/17 0000 Signed Impressions: Service Date/Time: Wednesday, July 26, 2017 16:53 - CONCLUSION: Marked enhancement along the lateral edge of the lateral malleolus with a soft tissue defect consistent with osteomyelitis. Juan Medeiros MD Abdomen/Pelvis CT 07/26/17 0000 Signed Impressions: Service Date/Time: Wednesday, July 26, 2017 19:55 - CONCLUSION: 1. Significant increase in the dimension of the common bile duct when compared to 06/04/17, now measuring 13 mm. Persistent mild dilation of the intrahepatic biliary ducts. Recommend correlation with clinical labs for collaborating evidence of biliary obstruction. 2. Bilateral pleural effusions and bibasilar consolidation, similar to prior. Dylan Greenberg MD Ankle X-Ray 07/25/17 0000 Signed Impressions: Service Date/Time: Tuesday, July 25, 2017 20:31 - CONCLUSION: Linear fractures of the distal fibula from diametaphysis to lateral malleolus and associated soft tissue irregularity adjacent to the lateral malleolus. Dylan Greenberg MD Head CT 07/20/17 0000 Signed Impressions: Service Date/Time: Thursday, July 20, 2017 17:33 - CONCLUSION: 1. There is an area of encephalomalacia in the randy suggesting an old area of infarct. 2. No acute intracranial abnormality is identified. 3. 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 Stephen Serrano MD Objective Remarks GENERAL: Well-developed mal nourished thin, cachectic, chronically ill- appearing middle-aged female. Appears generally uncomfortable, but in no acute distress. SKIN: Warm and dry. Right heel with clean dressing. HEENT: Normocephalic. Pupils equal and round. Mucous membranes pink and moist. CARDIOVASCULAR: Regular rate and rhythm. No murmur appreciated. RESPIRATORY: No accessory muscle use. Clear to auscultation. Breath sounds equal bilaterally. GASTROINTESTINAL: Abdomen soft, tender to palpation of RUQ and lower abdomen, nondistended. Bowel sounds x4. MUSCULOSKELETAL: No obvious deformities. No clubbing or cyanosis. No edema. NEUROLOGICAL: Awake and alert. Right-sided weakness. Moves left side spontaneously. Normal speech. PSYCHIATRIC: Appropriate mood and affect; insight and judgment normal. A/P Problem List: (1) Protein calorie malnutrition ICD Code: E46 - Unspecified protein-calorie malnutrition Status: Chronic (2) Total self-care deficit ICD Code: R41.89 - Other symptoms and signs involving cognitive functions and awareness Status: Acute (3) Hypokalemia ICD Code: E87.6 - Hypokalemia Status: Resolved (4) HTN (hypertension) ICD Code: I10 - Essential (primary) hypertension Status: Chronic (5) Impaired mobility and activities of daily living ICD Code: Z74.09 - Other reduced mobility Status: Acute Assessment and Plan 52 y/o female with a history CVA with right sided paralysis, HTN, HLD, Lupus, anxiety and depression was sent to the ED by her home health nurse for weakness evaluation. Low-grade fevers: Tmax 99.7 on 07/23. Symptoms more consistent with UTI. Other potential source is right ankle wound. Does not meet sepsis criteria at this time. -Repeat UA and CBC. -Right ankle wound culture collected by wound care physician, result pending -Antibiotics and potential ID consult pending results of urine culture, wound culture, or if medical condition worsens 07/25 UA on 07/24 positive and urine culture is growing gram negative rods. Patient currently on IV Zosyn. 07/27 urine culture grew mixed gram-positive and gram-negative mesfin. Likely contaminant. Total self care deficit: patient unable to be left alone at home, unable to care for self, patient and suffered a fall at home and now is also in the hospital. Head CT reviewed and shows no acute abnormalities -Consulted case management for possible placement -Continue daily PT while admitted Generalized weakness: Likely due to chronic medical conditions -B12 and vitamin D level are low, give replacement Severe Protein Calorie Malnutrition: cachectic, bitemporal wasting, low albumin 1.7, BMI 17, weight 48kg, unhealing wounds Sacral decub stage 4, and right ankle ulcer stage 3, present on admission -Consulted wound care for recommendations 07/25 Dietitian consulted. Recommended cardiac diet with Enlive 3 times a day. Recommended Theragran-M daily. Elevated BUN, suspect mild dehydration, BUN 24 -Improved with IVF Hypokalemia: Mild, potassium 3.4. Magnesium within normal limits. -Potassium supplemented level now normal. HTN, chronic: -Continue home lisinopril, HCTZ. -DC'd losartan with double angiotensin blocking coverage. -Patient reports frequent urination and wants to stop HCTZ. -Add amlodipine. 07/25 blood pressure well controlled currently on lisinopril, amlodipine and lisinopril. Chronic Pain & Anxiety: Continue home meds including Oramorph 30mg po q8h and Xanax 2mg q8h prn. -Continue [place] as needed for breakthrough. 07/25 pain seems to be controlled. Continue management as above. History of CVA with residual right-sided weakness: -Continue Eliquis. Right ankle wound Dr Buitrago evaluated patient - recommends arterial blood flow studies and x- rays. Continue with Santyl daily and dry sterile there are since on the right. Cooper offloading boot for the right leg was ordered. - 07/26 Will order MRI to r/o osteomyelitis. - 07/27 MRI shows osteomyelitis and wound culture from ankle is growing Proteus mirabilis, MRSA, group A beta strep and group D enterococcus.- will consult ID - 07/28 ID consulted. Antibiotics changed to IV Vancomycin and oral Levaquin. - 07/29 antibiotics per ID. Hypoxemia Patient's o2 saturation in the 90's, patient not in distress - will repeat CXR 07/28 Incentive spirometry. Repeat CXR as above. 07/30 patient sating well on room air. abdominal pain Patient still complains of abdominal pain. CT of the abdomen and pelvis showed significant increase in the dimension of the common bile duct when compared to and now measures 13 mm. However AST, AST and alkaline phosphatase are normal. There is persistent mild dilation of the intrahepatic biliary ducts. 07/28 GI consult noted. HIDA scan vs EUS. follow up GI recommendations. Poor Appetite Will Rx Megace. DVT prophylaxis: SCDs, Eliquis Discharge Planning . Problem Qualifiers (1) Protein calorie malnutrition: Qualified Codes: E43 - Unspecified severe protein-calorie malnutrition (2) HTN (hypertension): Qualified Codes: I10 - Essential (primary) hypertension Fernando Hart MD Jul 29, 2017 17:00
[2017-07-30] MEDS ORDERED: PHARMACY ORDERED LAB ONE (03:45)
[2017-07-30] MEDS: VANCOMYCIN INJ 750 MG in SODIUM CHLOR 0.9% 250 ML INJ 250 ML IV SCH (04:23)
[2017-07-30] MEDS: MORPHINE SULFATE 30 MG CONTROLLED RELEASE TAB PO SCH ×3 (07:19→22:30)
[2017-07-30 08:00] VITALS: BP 146/72; PULSE 90; RESP 16; TEMP 98.7; O2SAT 94
[2017-07-30] MEDS: PSYLLIUM FIBER SF/GF 6 GM POWD PKT PO SCH (09:00)
[2017-07-30] MEDS: ASPIRIN EC 81 MG TABEC PO SCH (10:00)
[2017-07-30] MEDS: LACTOBACILLUS ACIDOPHILUS TAB PO SCH ×3 (10:00→17:02)
[2017-07-30] MEDS: MEGESTROL ACETATE SUSP 400 MG/10 ML CUP PO SCH (10:00)
[2017-07-30] MEDS: DICYCLOMINE HCL 10 MG CAP PO SCH ×2 (10:00→21:09)
[2017-07-30] MEDS: PANTOPRAZOLE SOD 40 MG DELAYED RELEASE TAB PO SCH (10:00)
[2017-07-30] MEDS: PRAVASTATIN SOD 40 MG TAB PO SCH (10:00)
[2017-07-30] MEDS: LISINOPRIL 20 MG TAB PO SCH ×2 (10:00→21:10)
[2017-07-30] MEDS: LEVOFLOXACIN 750 MG TAB PO SCH (10:00)
[2017-07-30] MEDS: buPROPion HCL 150 MG SUSTAINED RELEASE TAB PO SCH ×2 (10:00→21:09)
[2017-07-30] MEDS: CLOPIDOGREL 75 MG TAB PO SCH (10:01)
[2017-07-30] MEDS: SERTRALINE HCL 100 MG TAB PO SCH ×2 (10:01→21:09)
[2017-07-30] MEDS: APIXABAN 5 MG TABLET PO SCH ×2 (10:01→21:09)
[2017-07-30] MEDS: MULTIVITAMINS/MINERALS THERAPEUTIC TAB PO SCH (10:01)
[2017-07-30] MEDS: CHOLECALCIFEROL (VIT D3) 5000 UNIT CAP PO SCH (10:01)
[2017-07-30] MEDS: amLODIPine BESYLATE 5 MG TAB PO SCH (10:01)
[2017-07-30] MEDS: COLLAGENASE OINT 30 GM TUBE TOPICAL SCH (10:02)
[2017-07-30] MEDS: SODIUM CHLORIDE 0.9% FLUSH 10 ML FLUSH IV FLUSH SCH ×2 (10:02→21:10)
[2017-07-30] MEDS: ACETAMINOPHEN/HYDROcodone 325 MG/5 MG TAB PO PRN ×2 (11:33→18:51)
[2017-07-30] MEDS: ALPRAZolam 1 MG TAB PO PRN ×2 (11:33→21:10)
[2017-07-30 12:00] VITALS: BP 118/68; PULSE 83; RESP 18; TEMP 97.1; O2SAT 95
--- NOTE | 2017-07-30 12:41 | HHI.GIFU ---
Subjective Remarks Resting in bed. Not much appetite today, but did eat some scrambled eggs and part of a bagel for breakfast and the carrots and part of her turkey for lunch. No n/v. No abdominal pain. No BM yet, but states she feels as though she will have one later today. (Maida Pitts) Objective Vitals I&O Vital Signs Date Time Temp Pulse Resp B/P (MAP) Pulse Ox O2 Delivery O2 Flow Rate FiO2 07/30/17 08:00 98.7 90 16 146/72 (96) 94 07/29/17 23:26 97.7 85 20 139/79 (99) 97 07/29/17 21:00 98.5 89 16 136/65 (88) 97 07/29/17 20:51 Room Air 07/29/17 16:00 98.0 82 18 128/72 (90) 97 I/O 07/29/17 07/29/17 07/29/17 07/30/17 07/30/17 07/30/17 07:00 15:00 23:00 07:00 15:00 23:00 Intake Total 257.5 ml 1520 ml 1107.7 ml Output Total 400 ml Balance 257.5 ml 1120 ml 1107.7 ml Intake Oral 1520 ml 850 ml IV Total 257.5 ml 257.7 ml Output Urine Total 400 ml # Voids 4 3 # Bowel Movements 1 0 Laboratory Laboratory Tests Test 07/30/17 04:15 Vancomycin Level Trough 11.6 Date/Time Source Procedure Growth Status 07/20/17 16:19 Blood Peripheral Aerobic Blood Culture - Final NO GROWTH IN 5 DAYS Complete 07/20/17 16:19 Anaerobic Blood Culture - Final Propionibacterium Acnes Complete 07/24/17 15:45 Urine Clean Catch Urine Culture - Final Complete 07/23/17 09:49 Wound Ankle Gram Stain - Final Complete 07/23/17 09:49 Wound Culture - Final Proteus Mirabilis S. Aureus Mrsa Group A Beta Strep Group D Enterococcus Complete Imaging Last Impressions Cholangiopancreatography MRI 07/28/17 0000 Signed Impressions: Service Date/Time: Friday, July 28, 2017 11:14 - CONCLUSION: 1. Dilated common duct to 11 mm without evidence of stone or mass 2. Small bilateral effusions Rickie Hutchinson MD Chest X-Ray 07/26/17 0000 Signed Impressions: Service Date/Time: Wednesday, July 26, 2017 15:42 - CONCLUSION: Small right pleural effusion, some adjacent consolidation, likely atelectasis. Juan Medeiros MD Ankle MRI 07/26/17 0000 Signed Impressions: Service Date/Time: Wednesday, July 26, 2017 16:53 - CONCLUSION: Marked enhancement along the lateral edge of the lateral malleolus with a soft tissue defect consistent with osteomyelitis. Juan Medeiros MD Abdomen/Pelvis CT 07/26/17 0000 Signed Impressions: Service Date/Time: Wednesday, July 26, 2017 19:55 - CONCLUSION: 1. Significant increase in the dimension of the common bile duct when compared to 06/04/17, now measuring 13 mm. Persistent mild dilation of the intrahepatic biliary ducts. Recommend correlation with clinical labs for collaborating evidence of biliary obstruction. 2. Bilateral pleural effusions and bibasilar consolidation, similar to prior. Dylan Greenberg MD Ankle X-Ray 07/25/17 0000 Signed Impressions: Service Date/Time: Tuesday, July 25, 2017 20:31 - CONCLUSION: Linear fractures of the distal fibula from diametaphysis to lateral malleolus and associated soft tissue irregularity adjacent to the lateral malleolus. Dylan Greenberg MD Head CT 07/20/17 0000 Signed Impressions: Service Date/Time: Thursday, July 20, 2017 17:33 - CONCLUSION: 1. There is an area of encephalomalacia in the randy suggesting an old area of infarct. 2. No acute intracranial abnormality is identified. 3. 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 Stephen Serrano MD Physical Exam HEENT: Normocephalic; atraumatic; no jaundice CHEST: CTA CARDIAC: RRR ABDOMEN: Soft, non distended, nontender; no hepatosplenomegaly; bowel sounds are present in all four quadrants. EXTREMITIES: No clubbing, cyanosis, or edema. SKIN: Normal; no rash; no jaundice. CASH CONTROL SPECIALIST: Alert/oriented, right sided weakness (Maida Pitts CELL ATTENDANT HELPER) Assessment and Plan Plan ASSESSMENT: - Biliary dilatation on CT scan. CT scan abdomen and pelvis (07/26/17)----> Significant increase in the dimension of the common bile duct when compared to 06/04/17, now measuring 13mm. Persistent mild dilation of the intrahepatic biliary ducts. Recommend correlation with clinical labs for collaborating evidence of biliary obstruction. Bilateral pleural effusions and bibasilar consolidation, similar to prior. LFTs are unremarkable. Occasional nausea. MRCP without contrast (07/28/17)----> Dilated common duct to 11 mm but no evidence of stone or mass. Small bilateral effusions. HIDA Scan pending, may need EUS as outpatient. - Abdominal pain, likely musculoskeletal. Pt developed a burning pain in LLQ/ left side when she was transferred from stretcher to bed. This is only with movement (not food intake) and improves with rest. RESOLVED. - Pt reports that she has a hx of porphyria. - Gastritis with belching/occasional nausea. PPI - Alternating constipation, diarrhea. Probiotics. Metamucil - Occasional BRBPR. S/P recent colonoscopy. - Chronic anemia. S/P [facility] in May of 2017. EGD/Colonoscopy (06/03/17)---> chronic gastritis, diverticulosis. She was also evaluated with bone marrow biopsy (06/03/17)---> normocellular bone marrow with trileneage hematopoiesis and erythroid hyperplasia, stainable iron is present (2-3+). Peripheral blood smear with severe hypochromic, microcytic anemia and mild leukopenia. 9.3/29.1. - Abnormal weight loss, Malnutrition. Improved per patient. Appetite good, she has gained 4 lbs since her last hospitalization. Megace - Generalized weakness. PT per attending. - Hx CVA- Eliquis, Plavix, ASA per attending. - HTN, Lupus, Hyperlipidemia, Anxiety, Depression, per attending. PLAN: - FARIDA - Ensure with meals - Await HIDA Scan - Cont. PPI - Cont. Lactinex - Cont. Metamucil - Cont. Megace - Monitor labs - Supportive care - Possible EUS as outpatient - Consider hematology evaluation for porphyria - Further recommendations to follow based on results of above - Pt seen and examined by Dr. Lagos and myself and this note is written on her behalf (Maida Pitts) Maida Pitts Jul 30, 2017 12:41 Sarah Lagos MD Jul 30, 2017 18:21
[2017-07-30 16:00] VITALS: BP 152/70; PULSE 88; RESP 16; TEMP 99; O2SAT 96
[2017-07-30] MEDS: VANCOMYCIN 1,000 MG/NS 250 ML IV SCH ×2 (17:02)
[2017-07-30 20:00] VITALS: BP 140/63; PULSE 81; RESP 20; TEMP 98.2; O2SAT 95
--- NOTE | 2017-07-30 23:42 | HHI.PR ---
Subjective Remarks late entry - aptient seen earlier at 4:30 pm Patient c/o of some burping denies abdominal pain denies nausea or vomiting, denies abdominal pain Objective Vitals Vital Signs Date Time Temp Pulse Resp B/P (MAP) Pulse Ox O2 Delivery O2 Flow Rate FiO2 07/30/17 21:10 Room Air 07/30/17 20:00 98.2 81 20 140/63 (88) 95 07/30/17 19:54 18 07/30/17 16:00 99.0 88 16 152/70 (97) 96 07/30/17 12:00 97.1 83 18 118/68 (85) 95 07/30/17 08:00 Room Air 07/30/17 08:00 98.7 90 16 146/72 (96) 94 I/O 07/30/17 07/30/17 07/30/17 07/31/17 07/31/17 07/31/17 07:00 15:00 23:00 07:00 15:00 23:00 Intake Total 1107.7 ml 540 ml Output Total 600 ml Balance 1107.7 ml -60 ml Intake Oral 850 ml 540 ml IV Total 257.7 ml Output Urine Total 600 ml # Voids 3 # Bowel Movements 0 0 Result Diagram: 07/29/1792107/29/17921 Objective Remarks GENERAL: Well-developed mal nourished thin, cachectic, chronically ill- appearing middle-aged female. Appears generally uncomfortable, but in no acute distress. SKIN: Warm and dry. Right heel with clean dressing. HEENT: Normocephalic. Pupils equal and round. Mucous membranes pink and moist. CARDIOVASCULAR: Regular rate and rhythm. No murmur appreciated. RESPIRATORY: No accessory muscle use. Clear to auscultation. Breath sounds equal bilaterally. GASTROINTESTINAL: Abdomen soft, tender to palpation of RUQ and lower abdomen, nondistended. Bowel sounds x4. MUSCULOSKELETAL: No obvious deformities. No clubbing or cyanosis. No edema. NEUROLOGICAL: Awake and alert. Right-sided weakness. Moves left side spontaneously. Normal speech. PSYCHIATRIC: Appropriate mood and affect; insight and judgment normal. A/P Problem List: (1) Protein calorie malnutrition ICD Code: E46 - Unspecified protein-calorie malnutrition Status: Chronic (2) Total self-care deficit ICD Code: R41.89 - Other symptoms and signs involving cognitive functions and awareness Status: Acute (3) Hypokalemia ICD Code: E87.6 - Hypokalemia Status: Resolved (4) HTN (hypertension) ICD Code: I10 - Essential (primary) hypertension Status: Chronic (5) Impaired mobility and activities of daily living ICD Code: Z74.09 - Other reduced mobility Status: Acute Assessment and Plan 52 y/o female with a history CVA with right sided paralysis, HTN, HLD, Lupus, anxiety and depression was sent to the ED by her home health nurse for weakness evaluation. Low-grade fevers: Tmax 99.7 on 07/23. Symptoms more consistent with UTI. Other potential source is right ankle wound. Does not meet sepsis criteria at this time. -Repeat UA and CBC. -Right ankle wound culture collected by wound care physician, result pending -Antibiotics and potential ID consult pending results of urine culture, wound culture, or if medical condition worsens 07/25 UA on 07/24 positive and urine culture is growing gram negative rods. Patient currently on IV Zosyn. 07/27 urine culture grew mixed gram-positive and gram-negative mesfin. Likely contaminant. Total self care deficit: patient unable to be left alone at home, unable to care for self, patient and suffered a fall at home and now is also in the hospital. Head CT reviewed and shows no acute abnormalities -Consulted case management for possible placement -Continue daily PT while admitted Generalized weakness: Likely due to chronic medical conditions -B12 and vitamin D level are low, give replacement Severe Protein Calorie Malnutrition: cachectic, bitemporal wasting, low albumin 1.7, BMI 17, weight 48kg, unhealing wounds Sacral decub stage 4, and right ankle ulcer stage 3, present on admission -Consulted wound care for recommendations 07/25 Dietitian consulted. Recommended cardiac diet with Enlive 3 times a day. Recommended Theragran-M daily. Elevated BUN, suspect mild dehydration, BUN 24 -Improved with IVF Hypokalemia: Mild, potassium 3.4. Magnesium within normal limits. -Potassium supplemented level now normal. HTN, chronic: -Continue home lisinopril, HCTZ. -DC'd losartan with double angiotensin blocking coverage. -Patient reports frequent urination and wants to stop HCTZ. -Add amlodipine. 07/25 blood pressure well controlled currently on lisinopril, amlodipine and lisinopril. Chronic Pain & Anxiety: Continue home meds including Oramorph 30mg po q8h and Xanax 2mg q8h prn. -Continue Candor as needed for breakthrough. 07/25 pain seems to be controlled. Continue management as above. History of CVA with residual right-sided weakness: -Continue Eliquis. Right ankle wound Dr Buitrago evaluated patient - recommends arterial blood flow studies and x- rays. Continue with Santyl daily and dry sterile there are since on the right. Cooper offloading boot for the right leg was ordered. - 07/26 Will order MRI to r/o osteomyelitis. - 07/27 MRI shows osteomyelitis and wound culture from ankle is growing Proteus mirabilis, MRSA, group A beta strep and group D enterococcus.- will consult ID - 07/28 ID consulted. Antibiotics changed to IV Vancomycin and oral Levaquin. - 07/29 antibiotics per ID. Hypoxemia Patient's o2 saturation in the 90's, patient not in distress - will repeat CXR 07/28 Incentive spirometry. Repeat CXR as above. 07/30 patient sating well on room air. abdominal pain Patient still complains of abdominal pain. CT of the abdomen and pelvis showed significant increase in the dimension of the common bile duct when compared to and now measures 13 mm. However AST, AST and alkaline phosphatase are normal. There is persistent mild dilation of the intrahepatic biliary ducts. 07/28 GI consult noted. HIDA scan vs EUS. follow up GI recommendations. 07/30 MRCP negative, HIDA pending. Poor Appetite Still poor appetite - Continue Megace. DVT prophylaxis: SCDs, Eliquis Discharge Planning Pending HIDa scan and ID clearance.. Problem Qualifiers (1) Protein calorie malnutrition: Qualified Codes: E43 - Unspecified severe protein-calorie malnutrition (2) HTN (hypertension): Qualified Codes: I10 - Essential (primary) hypertension Fernando Hart MD Jul 30, 2017 23:42
[2017-07-31] VITALS: BP 144/77; PULSE 89; RESP 22; TEMP 98.3; O2SAT 94
[2017-07-31] MEDS: ACETAMINOPHEN/HYDROcodone 325 MG/5 MG TAB PO PRN ×3 (03:29→16:58)
[2017-07-31] MEDS: VANCOMYCIN 1,000 MG/NS 250 ML IV SCH ×4 (03:31→15:18)
[2017-07-31 04:00] VITALS: BP 136/67; PULSE 81; RESP 18; TEMP 98.2; O2SAT 93
[2017-07-31 05:44] LABS: HEMATOCRIT 24.9 % (35.0-46.0); MEAN CELL VOLUME 81.5 FL (80.0-100.0); MEAN CORPUSCULAR HEMOGLOBIN 26.3 PG (27.0-34.0); MEAN CORPUSCULAR HGB CONC 32.2 % (32.0-36.0); PLATELET COUNT 288 TH/MM3 (150-450); RED BLOOD COUNT 3.06 MIL/MM3 (4.00-5.30); RED CELL DISTRIBUTION WIDTH 19.5 % (11.6-17.2); REVIEW FLAG FINAL; WHITE BLOOD COUNT 3.4 TH/MM3 (4.0-11.0)
[2017-07-31 06:09] LABS: TOTAL BILIRUBIN ADULT 0.1 MG/DL (0.2-1.0)
[2017-07-31] MEDS: MORPHINE SULFATE 30 MG CONTROLLED RELEASE TAB PO SCH ×3 (06:14→22:42)
[2017-07-31 06:17] LABS: BICARBONATE 25.7 MEQ/L (21.0-32.0)
[2017-07-31 08:00] VITALS: BP 138/65; PULSE 88; RESP 20; TEMP 98; O2SAT 94
[2017-07-31] MEDS: CHOLECALCIFEROL (VIT D3) 5000 UNIT CAP PO SCH (08:52)
[2017-07-31] MEDS: ALPRAZolam 1 MG TAB PO PRN ×2 (08:52→16:58)
[2017-07-31] MEDS: LACTOBACILLUS ACIDOPHILUS TAB PO SCH ×3 (08:52→16:58)
[2017-07-31] MEDS: ASPIRIN EC 81 MG TABEC PO SCH (08:52)
[2017-07-31] MEDS: PANTOPRAZOLE SOD 40 MG DELAYED RELEASE TAB PO SCH (08:52)
[2017-07-31] MEDS: amLODIPine BESYLATE 5 MG TAB PO SCH (08:52)
[2017-07-31] MEDS: PRAVASTATIN SOD 40 MG TAB PO SCH (08:52)
[2017-07-31] MEDS: MEGESTROL ACETATE SUSP 400 MG/10 ML CUP PO SCH (08:52)
[2017-07-31] MEDS: MULTIVITAMINS/MINERALS THERAPEUTIC TAB PO SCH (08:52)
[2017-07-31] MEDS: buPROPion HCL 150 MG SUSTAINED RELEASE TAB PO SCH ×2 (08:52→21:40)
[2017-07-31] MEDS: SERTRALINE HCL 100 MG TAB PO SCH ×2 (08:53→21:40)
[2017-07-31] MEDS: PSYLLIUM FIBER SF/GF 6 GM POWD PKT PO SCH (08:53)
[2017-07-31] MEDS: CLOPIDOGREL 75 MG TAB PO SCH (08:53)
[2017-07-31] MEDS: APIXABAN 5 MG TABLET PO SCH ×2 (08:53→21:41)
[2017-07-31] MEDS: DICYCLOMINE HCL 10 MG CAP PO SCH ×2 (08:53→21:41)
[2017-07-31] MEDS: LISINOPRIL 20 MG TAB PO SCH ×2 (08:53→21:41)
[2017-07-31] MEDS: SODIUM CHLORIDE 0.9% FLUSH 10 ML FLUSH IV FLUSH SCH ×2 (08:53→21:00)
[2017-07-31] MEDS: COLLAGENASE OINT 30 GM TUBE TOPICAL SCH (08:54)
[2017-07-31] MEDS: LEVOFLOXACIN 750 MG TAB PO SCH (09:29)
--- NOTE | 2017-07-31 11:03 | HHI.GIFU ---
Subjective Remarks Just got back from Nuclear medicine for tagged wbc scan. Not currently having any abdominal pain. Did have some left sided burning yesterday. No n/v. (Maida Pitts) Objective Vitals I&O Vital Signs Date Time Temp Pulse Resp B/P (MAP) Pulse Ox O2 Delivery O2 Flow Rate FiO2 07/31/17 08:00 98.0 88 20 138/65 (89) 94 07/31/17 07:18 18 07/31/17 04:43 18 07/31/17 04:00 98.2 81 18 136/67 (90) 93 07/31/17 00:00 98.3 89 22 144/77 (99) 94 07/30/17 21:10 Room Air 07/30/17 20:00 98.2 81 20 140/63 (88) 95 07/30/17 16:00 99.0 88 16 152/70 (97) 96 07/30/17 12:00 97.1 83 18 118/68 (85) 95 I/O 07/30/17 07/30/17 07/30/17 07/31/17 07/31/17 07/31/17 07:00 15:00 23:00 07:00 15:00 23:00 Intake Total 1107.7 ml 540 ml 490 ml Output Total 600 ml 450 ml Balance 1107.7 ml -60 ml 40 ml Intake Oral 850 ml 540 ml 240 ml IV Total 257.7 ml 250 ml Output Urine Total 600 ml 450 ml # Voids 3 # Bowel Movements 0 0 1 Laboratory Laboratory Tests Test 07/31/17 04:44 White Blood Count 3.4 Red Blood Count 3.06 Hemoglobin 8.0 Hematocrit 24.9 Mean Corpuscular Volume 81.5 Mean Corpuscular Hemoglobin 26.3 Mean Corpuscular Hemoglobin Concent 32.2 Red Cell Distribution Width 19.5 Platelet Count 288 Mean Platelet Volume 7.0 Blood Urea Nitrogen 13 Creatinine 0.35 Random Glucose 67 Total Protein 6.1 Albumin 1.7 Calcium Level 7.9 Alkaline Phosphatase 64 Aspartate Amino Transf (AST/SGOT) 23 Alanine Aminotransferase (ALT/SGPT) 12 Total Bilirubin 0.1 Direct Bilirubin 0.1 Sodium Level 140 Potassium Level 4.0 Chloride Level 107 Carbon Dioxide Level 25.7 Anion Gap 7 Estimat Glomerular Filtration Rate 194 Indirect Bilirubin 0.0 Date/Time Source Procedure Growth Status 07/20/17 16:19 Blood Peripheral Aerobic Blood Culture - Final NO GROWTH IN 5 DAYS Complete 07/20/17 16:19 Anaerobic Blood Culture - Final Propionibacterium Acnes Complete 07/24/17 15:45 Urine Clean Catch Urine Culture - Final Complete 07/23/17 09:49 Wound Ankle Gram Stain - Final Complete 07/23/17 09:49 Wound Culture - Final Proteus Mirabilis S. Aureus Mrsa Group A Beta Strep Group D Enterococcus Complete Imaging Last Impressions Cholangiopancreatography MRI 07/28/17 0000 Signed Impressions: Service Date/Time: Friday, July 28, 2017 11:14 - CONCLUSION: 1. Dilated common duct to 11 mm without evidence of stone or mass 2. Small bilateral effusions Rickie Hutchinson MD Chest X-Ray 07/26/17 0000 Signed Impressions: Service Date/Time: Wednesday, July 26, 2017 15:42 - CONCLUSION: Small right pleural effusion, some adjacent consolidation, likely atelectasis. Juan Medeiros MD Ankle MRI 07/26/17 0000 Signed Impressions: Service Date/Time: Wednesday, July 26, 2017 16:53 - CONCLUSION: Marked enhancement along the lateral edge of the lateral malleolus with a soft tissue defect consistent with osteomyelitis. Juan Medeiros MD Abdomen/Pelvis CT 07/26/17 0000 Signed Impressions: Service Date/Time: Wednesday, July 26, 2017 19:55 - CONCLUSION: 1. Significant increase in the dimension of the common bile duct when compared to 06/04/17, now measuring 13 mm. Persistent mild dilation of the intrahepatic biliary ducts. Recommend correlation with clinical labs for collaborating evidence of biliary obstruction. 2. Bilateral pleural effusions and bibasilar consolidation, similar to prior. Dylan Greenberg MD Ankle X-Ray 07/25/17 0000 Signed Impressions: Service Date/Time: Tuesday, July 25, 2017 20:31 - CONCLUSION: Linear fractures of the distal fibula from diametaphysis to lateral malleolus and associated soft tissue irregularity adjacent to the lateral malleolus. Dylan Greenberg MD Head CT 07/20/17 0000 Signed Impressions: Service Date/Time: Thursday, July 20, 2017 17:33 - CONCLUSION: 1. There is an area of encephalomalacia in the randy suggesting an old area of infarct. 2. No acute intracranial abnormality is identified. 3. 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 Stephen Serrano MD Physical Exam HEENT: Normocephalic; atraumatic; no jaundice CHEST: CTA CARDIAC: RRR ABDOMEN: Soft, non distended, nontender; no hepatosplenomegaly; bowel sounds are present in all four quadrants. EXTREMITIES: No clubbing, cyanosis, or edema. 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 CT scan abdomen and pelvis (07/26/17)----> Significant increase in the dimension of the common bile duct when compared to 06/04/17, now measuring 13mm. Persistent mild dilation of the intrahepatic biliary ducts. Recommend correlation with clinical labs for collaborating evidence of biliary obstruction. Bilateral pleural effusions and bibasilar consolidation, similar to prior. LFTs are unremarkable. Occasional nausea. MRCP without contrast (07/28/17)----> Dilated common duct to 11 mm but no evidence of stone or mass. Small bilateral effusions. HIDA Scan has been rescheduled for 08/01. ? need EUS as outpatient. - Abdominal pain, likely musculoskeletal. Pt developed a burning pain in LLQ/ left side when she was transferred from stretcher to bed. This is only with movement (not food intake) and improves with rest. Improved. - Pt reports that she has a hx of porphyria. - Gastritis with belching/occasional nausea. PPI - Alternating constipation, diarrhea. Probiotics. Metamucil - Occasional BRBPR. S/P recent colonoscopy as below. - Chronic anemia. S/P [facility] in May of 2017. EGD/Colonoscopy (06/03/17)---> chronic gastritis, diverticulosis. She was also evaluated with bone marrow biopsy (06/03/17)---> normocellular bone marrow with trileneage hematopoiesis and erythroid hyperplasia, stainable iron is present (2-3+). Peripheral blood smear with severe hypochromic, microcytic anemia and mild leukopenia. 9.3/29.1. - Abnormal weight loss, Malnutrition. Improved per patient. Appetite good, she has gained 4 lbs since her last hospitalization. Megace - Generalized weakness. PT per attending. - Hx CVA- Eliquis, Plavix, ASA per attending. - HTN, Lupus, Hyperlipidemia, Anxiety, Depression, per attending. PLAN: - FARIDA - Ensure with meals - Await HIDA Scan- rescheduled for 08/01 because she had tagged wbc scan today - Cont. PPI - Cont. Lactinex - Cont. Metamucil - Cont. Megace - Monitor labs - Supportive care - Possible EUS as outpatient - Consider hematology evaluation for porphyria - Further recommendations to follow based on results of above - Pt seen and examined by Dr. Lagos and myself and this note is written on her behalf (Maida Pitts) Physician Comments seen, examined agree with above gallium scan noted eus op gi will sign off if dc fu office call us if lfts increase can hold on hida scan for now (Sarah Lagos MD) Maida Pitts Jul 31, 2017 11:03 Sarah Lagos MD Jul 31, 2017 18:38
--- NOTE | 2017-07-31 11:35 | RADRPT ---
EXAM DATE/TIME: 07/30/2017 13:05 [facility] COMPARISON: No previous studies available for comparison. INDICATIONS : Right ankle wound. DOSE: 21.4 mCi Tc99m Ceretec labeled white blood cells IV SPECT IMAGIN hrs, 20 hrs IMAGNG: SPECT/CT imaging with fusion was performed. RADIATION DOSE: 5.17 CTDIvol (mGy) MEDICAL HISTORY : Lupus. Hypertension. Hepatitis C. SURGICAL HISTORY : Rotator cuff, right. Umbilical hernia repair. Hysterectomy. ENCOUNTER: Subsequent ACUITY: 1 week PAIN SCALE: 3/10 LOCATION: Right Ankle. TECHNIQUE: Following the in vitro labeling of autologous white cells and reinjection, whole body scan was perfor med at the specified times. SPECT imaging was performed at the specified time in sagittal, axial and coronal planes. Attenuation correction was performed with the computed tomography and both the atten uation correction and non-attenuation corrected data sets were reviewed. FINDINGS: There is abnormal biodistribution of radiotracer in the distal fibula/lateral malleolus where there i s lucency consistent with osteomyelitis. This is seen more laterally and inferiorly. CONCLUSION: Osteomyelitis of the right distal fibula/lateral malleolus. Al Latham MD on July 31, 2017 at 11:01 Board Certified Radiologist. This report was verified electronically.
[2017-07-31 12:00] VITALS: BP 126/65; PULSE 84; RESP 18; TEMP 98.6; O2SAT 93
--- NOTE | 2017-07-31 13:32 | HHI.IDPN ---
Subjective Subjective Remarks Patient is a 52-year-old female, with prior history of CVA and right-sided weakness, lives at home with her , apparently fell and was not able to get up. She has been getting weaker. She hit her head but denies any loss of consciousness. Patient was recently hospitalized in May and she was discharge on June 30. has been taking care of her, and has had some home health nursing. On evaluation, she was found to have a decubitus in the sacral region as well as in the right lateral ankle. It was apparently & during her last admission. She has not been doing any care to her right ankle wound. X-ray of the ankle showed some findings of fracture. MRI showed possible osteomyelitis in the lateral malleolus. Podiatry has been evaluating the patient, and a [facility] WBC scan has been ordered. Culture of the ankle wound is growing streptococcus, enterococcus, MRSA, and Proteus. Patient is on Zosyn. She has not been febrile. Her WBC is normal. Notes reviewed Temps ok No new complaints ESR 40 CRP 6.43 WBC down to 3.4 WBC scan (+) osteo lateral malleolus Antibiotics Vancomycin Levaquin Lines PIV Past Medical History CVA with right sided paralysis Hypertension Hyperlipidemia Lupus Anxiety Depression Past Surgical History Hernia repair Hysterectomy Right shoulder ORIF Pilonidal cyst removal Allergies: Coded Allergies: Influenza Virus Vaccines (Unverified Allergy, Severe, Respiratory Failure , 07/20/17) sulfamethoxazole (Unverified Allergy, Severe, SKIN PROBLEMS, 07/20/17) trimethoprim (Unverified Allergy, Severe, SKIN PROBLEMS, 07/20/17) Objective . Vital Signs Date Time Temp Pulse Resp B/P (MAP) Pulse Ox O2 Delivery O2 Flow Rate FiO2 07/31/17 08:00 Room Air 07/31/17 08:00 98.0 88 20 138/65 (89) 94 07/31/17 07:18 18 07/31/17 04:43 18 07/31/17 04:00 98.2 81 18 136/67 (90) 93 07/31/17 00:00 98.3 89 22 144/77 (99) 94 07/30/17 21:10 Room Air 07/30/17 20:00 98.2 81 20 140/63 (88) 95 07/30/17 16:00 99.0 88 16 152/70 (97) 96 . Laboratory Tests Test 07/31/17 04:44 White Blood Count 3.4 TH/MM3 Red Blood Count 3.06 MIL/MM3 Hemoglobin 8.0 GM/DL Hematocrit 24.9 % Mean Corpuscular Volume 81.5 FL Mean Corpuscular Hemoglobin 26.3 PG Mean Corpuscular Hemoglobin Concent 32.2 % Red Cell Distribution Width 19.5 % Platelet Count 288 TH/MM3 Mean Platelet Volume 7.0 FL Laboratory Tests Test 07/31/17 04:44 Blood Urea Nitrogen 13 MG/DL Creatinine 0.35 MG/DL Random Glucose 67 MG/DL Total Protein 6.1 GM/DL Albumin 1.7 GM/DL Calcium Level 7.9 MG/DL Alkaline Phosphatase 64 U/L Aspartate Amino Transf (AST/SGOT) 23 U/L Alanine Aminotransferase (ALT/SGPT) 12 U/L Total Bilirubin 0.1 MG/DL Direct Bilirubin 0.1 MG/DL Sodium Level 140 MEQ/L Potassium Level 4.0 MEQ/L Chloride Level 107 MEQ/L Carbon Dioxide Level 25.7 MEQ/L Anion Gap 7 MEQ/L Estimat Glomerular Filtration Rate 194 ML/MIN Indirect Bilirubin 0.0 MG/DL Imaging Tumor Localization 07/30/17 0000 Signed Impressions: Service Date/Time: July 13:05 - CONCLUSION: Osteomyelitis of the right distal fibula/lateral malleolus. Al Latham MD Cholangiopancreatography MRI 07/28/17 0000 Signed Impressions: Service Date/Time: Friday, July 28, 2017 11:14 - CONCLUSION: 1. Dilated common duct to 11 mm without evidence of stone or mass 2. Small bilateral effusions Rickie Hutchinson MD Chest X-Ray 07/26/17 0000 Signed Impressions: Service Date/Time: Wednesday, July 26, 2017 15:42 - CONCLUSION: Small right pleural effusion, some adjacent consolidation, likely atelectasis. Juan Medeiros MD Ankle MRI 07/26/17 0000 Signed Impressions: Service Date/Time: Wednesday, July 26, 2017 16:53 - CONCLUSION: Marked enhancement along the lateral edge of the lateral malleolus with a soft tissue defect consistent with osteomyelitis. Juan Medeiros MD Abdomen/Pelvis CT 07/26/17 0000 Signed Impressions: Service Date/Time: Wednesday, July 26, 2017 19:55 - CONCLUSION: 1. Significant increase in the dimension of the common bile duct when compared to 06/04/17, now measuring 13 mm. Persistent mild dilation of the intrahepatic biliary ducts. Recommend correlation with clinical labs for collaborating evidence of biliary obstruction. 2. Bilateral pleural effusions and bibasilar consolidation, similar to prior. Dylan Greenberg MD Ankle X-Ray 07/25/17 0000 Signed Impressions: Service Date/Time: Tuesday, July 25, 2017 20:31 - CONCLUSION: Linear fractures of the distal fibula from diametaphysis to lateral malleolus and associated soft tissue irregularity adjacent to the lateral malleolus. Dylan Greenberg MD Head CT 07/20/17 0000 Signed Impressions: Service Date/Time: Thursday, July 20, 2017 17:33 - CONCLUSION: 1. There is an area of encephalomalacia in the randy suggesting an old area of infarct. 2. No acute intracranial abnormality is identified. 3. 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 Stephen Serrano MD Physical Exam GENERAL: Patient is a thin, well-developed female, awake and alert, NAD. SKIN: Cool and dry. No generalized rash HEAD: Atraumatic. Normocephalic. No temporal wasting, or tenderness. EYES: [place] conjunctiva. No petechia or hemorrhage. Pupils equal, round and reactive to light. Extraocular movements full and intact. No scleral icterus. EARS, NOSE AND THROAT: Nose without bleeding or purulent nasal discharge. Mucous membranes pink and moist. Edentulous, no lesions in oropharynx. NECK: Trachea midline. Supple and not tender, no meningeal signs CARDIOVASCULAR: Regular rate and rhythm. No murmurs, rubs or gallops heard RESPIRATORY: Clear to auscultation. Breath sounds equal bilaterally. No rales , wheezing or rhonchi ABDOMEN: Soft, non-tender, mildly distended. Bowel sounds present and normoactive. No guarding. No rebound. No organomegaly. EXTREMITIES: No clubbing, cyanosis, or edema. Cool feet, no cyanosis or mottling. No calf tenderness. 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 No odor NEUROLOGICAL: Awake and alert. Cranial nerves grossly intact. R sided weakness PSYCHIATRIC: calm and cooperative. BACK: There is a decubitus ulcer over the coccyx, stage 3-4, about 2 inch diameter, with some slough and some red tissue, no purulence, no odor LINE: No evidence of infection Assessment & Plan Remarks IMPRESSION Ulcer over lateral malleolus R with some cellulitis, (+)osteo on MRI and WBC scan, bone not exposed - MRI (+), - also with evidence of non-displaced fracture in fibula on plain film - due to pressure Sacral decubitus Hx CVA with R sided weakness One (+) BC with propionibacterium, possibly a contaminant RECOMMENDATION Continue IV Vanco Continue PO Levaquin Wound care per podiatry Will need 6 weeks Abx (Vanco and Levaquin) - cure rate higher if the wound will heal and close up - Vanco trough 15-20 - follow labs closely while on Abx: CBC, creat, LFT, Vanco trough GI work-up in progress for dil CBD, elevated LFT When ready for D/C, will place PICC Dr Bogdan Duarte available this weekend if with ID issue or question Beba Bray MD Jul 31, 2017 13:32
--- NOTE | 2017-07-31 15:21 | HHI.PR ---
Subjective Remarks Follow-up visit status post fall with right ankle wound, generalized weakness, urinary tract infection. Patient seen and examined today. Reports she is feeling weak and tired. Continues to have poor appetite. Appears depressed. Denies SOB/ dyspnea. Denies chest pain, palpitations, headaches, dizziness. Denies fevers, chills, n/v/d. Denies hematuria, dysuria. Objective Vitals Vital Signs Date Time Temp Pulse Resp B/P (MAP) Pulse Ox O2 Delivery O2 Flow Rate FiO2 07/31/17 12:00 98.6 84 18 126/65 (85) 93 07/31/17 08:00 Room Air 07/31/17 08:00 98.0 88 20 138/65 (89) 94 07/31/17 07:18 18 07/31/17 04:43 18 07/31/17 04:00 98.2 81 18 136/67 (90) 93 07/31/17 00:00 98.3 89 22 144/77 (99) 94 07/30/17 21:10 Room Air 07/30/17 20:00 98.2 81 20 140/63 (88) 95 07/30/17 16:00 99.0 88 16 152/70 (97) 96 I/O 07/30/17 07/30/17 07/30/17 07/31/17 07/31/17 07/31/17 07:00 15:00 23:00 07:00 15:00 23:00 Intake Total 1107.7 ml 540 ml 490 ml Output Total 600 ml 450 ml Balance 1107.7 ml -60 ml 40 ml Intake Oral 850 ml 540 ml 240 ml IV Total 257.7 ml 250 ml Output Urine Total 600 ml 450 ml # Voids 3 # Bowel Movements 0 0 1 Result Diagram: 07/31/17 0444 07/31/17 0444 Imaging Last Impressions Tumor Localization 07/30/17 0000 Signed Impressions: Service Date/Time: July 13:05 - CONCLUSION: Osteomyelitis of the right distal fibula/lateral malleolus. Al Latham MD Cholangiopancreatography MRI 07/28/17 0000 Signed Impressions: Service Date/Time: Friday, July 28, 2017 11:14 - CONCLUSION: 1. Dilated common duct to 11 mm without evidence of stone or mass 2. Small bilateral effusions Rickie Hutchinson MD Chest X-Ray 07/26/17 0000 Signed Impressions: Service Date/Time: Wednesday, July 26, 2017 15:42 - CONCLUSION: Small right pleural effusion, some adjacent consolidation, likely atelectasis. Juan Medeiros MD Ankle MRI 07/26/17 0000 Signed Impressions: Service Date/Time: Wednesday, July 26, 2017 16:53 - CONCLUSION: Marked enhancement along the lateral edge of the lateral malleolus with a soft tissue defect consistent with osteomyelitis. Juan Medeiros MD Abdomen/Pelvis CT 07/26/17 0000 Signed Impressions: Service Date/Time: Wednesday, July 26, 2017 19:55 - CONCLUSION: 1. Significant increase in the dimension of the common bile duct when compared to 06/04/17, now measuring 13 mm. Persistent mild dilation of the intrahepatic biliary ducts. Recommend correlation with clinical labs for collaborating evidence of biliary obstruction. 2. Bilateral pleural effusions and bibasilar consolidation, similar to prior. Dylan Greenberg MD Ankle X-Ray 07/25/17 0000 Signed Impressions: Service Date/Time: Tuesday, July 25, 2017 20:31 - CONCLUSION: Linear fractures of the distal fibula from diametaphysis to lateral malleolus and associated soft tissue irregularity adjacent to the lateral malleolus. Dylan Greenberg MD Head CT 07/20/17 0000 Signed Impressions: Service Date/Time: Thursday, July 20, 2017 17:33 - CONCLUSION: 1. There is an area of encephalomalacia in the randy suggesting an old area of infarct. 2. No acute intracranial abnormality is identified. 3. 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 Stephen Serarno MD Objective Remarks GENERAL: This is a thinly appearing, well-developed patient, appears weak. SKIN: Warm and dry. HEENT: Normocephalic. Pupils equal round and reactive. Nose without bleeding. Airway patent. NECK: Trachea midline. No JVD. Supple. CARDIOVASCULAR: Regular rate and rhythm without murmurs, gallops, or rubs. RESPIRATORY: Diminished bases. No wheezes, rales, or rhonchi. GASTROINTESTINAL: Abdomen soft, non-tender, nondistended. Bowel Sounds normoactive x4. MUSCULOSKELETAL: Extremities without clubbing, cyanosis, or edema. Right ankle wound DTI. NEUROLOGICAL: Awake and alert. Oriented to time, place, person. No focal neuro deficit. Moves all extremities weakly, Right sided weakness. Normal speech. A/P Problem List: (1) Protein calorie malnutrition ICD Code: E46 - Unspecified protein-calorie malnutrition Status: Chronic (2) Total self-care deficit ICD Code: R41.89 - Other symptoms and signs involving cognitive functions and awareness Status: Acute (3) Hypokalemia ICD Code: E87.6 - Hypokalemia Status: Resolved (4) HTN (hypertension) ICD Code: I10 - Essential (primary) hypertension Status: Chronic (5) Impaired mobility and activities of daily living ICD Code: Z74.09 - Other reduced mobility Status: Acute Assessment and Plan 52 y/o female with a history CVA with right sided paralysis, HTN, HLD, Lupus, anxiety and depression was sent to the ED by her home health nurse for weakness evaluation. Low-grade fevers: Tmax 99.7 on 07/23. Symptoms more consistent with UTI. Other potential source is right ankle wound. Does not meet sepsis criteria - Right ankle wound culture collected by wound care physician, growing Proteus mirabilis, MRSA, group a beta strep, group D enterococcus - Urine culture grew mixed gram-positive and gram-negative mesfin. Likely contaminant. - Blood cultures growing Propionibacterium Acnes. ID Following recommends the vancomycin, Levaquin to continue upon discharge to SNF Total self care deficit: patient unable to be left alone at home, unable to care for self, patient and suffered a fall at home and now is also in the hospital. Generalized weakness: Likely due to chronic medical conditions - Head CT reviewed and shows no acute abnormalities - Continue daily PT while admitted -B12 and vitamin D level are low, give replacement - Plan for SNF placement to continue rehabilitation Severe Protein Calorie Malnutrition: cachectic, bitemporal wasting, low albumin 1.7, BMI 17, weight 48kg, unhealing wounds Sacral decub stage 4, and right ankle ulcer stage 3, present on admission - Consulted wound care for recommendations - Dietitian consulted. Recommended cardiac diet with Enlive 3 times a day. Recommended Theragran-M daily. HTN, chronic: - Continue home lisinopril, HCTZ. - DC'd losartan with double angiotensin blocking coverage. DC hydrochlorothiazide secondary to patient's request has been urinating a lot - We'll place patient on amlodipine - BP well controlled currently on lisinopril and amlodipine Chronic Pain & Anxiety: Continue home meds including Oramorph 30mg po q8h and Xanax 2mg q8h prn. -Continue [place] as needed for breakthrough. - pain seems to be controlled. Continue management as above. History of CVA with residual right-sided weakness: - Continue Eliquis. Right ankle wound - Dr Buitrago evaluated patient - recommends arterial blood flow studies and x -rays. Continue with Santyl daily and dry sterile there are since on the right. Cooper offloading boot for the right leg was ordered. - MRI shows osteomyelitis and wound culture from ankle is growing Proteus mirabilis, MRSA, group A beta strep and group D enterococcus.- will consult ID - ID consulted. Antibiotics changed to IV Vancomycin and oral Levaquin. - Antibiotics per ID. will be on vancomycin IV every 12 hours stop date 09/09, Levaquin 750 mg 4-2 days Hypoxemia - Patient's o2 saturation in the 90's, patient not in distress - resolved - Incentive spirometry. Chest x-ray showed small right pleural effusion, some adjacent consolidation, likely atelectasis - Patient sating well on room air. abdominal pain Patient still complains of abdominal pain. CT of the abdomen and pelvis showed significant increase in the dimension of the common bile duct when compared to and now measures 13 mm. However AST, AST and alkaline phosphatase are normal. There is persistent mild dilation of the intrahepatic biliary ducts. - GI consult noted. HIDA scan vs EUS. follow up GI recommendations. - MRCP negative - GI ordered HIDA scan, has not been done today. Spoke with Maida Pitts, with Dr. Lagos, will hold off HIDA scan if patient is DC to SNF tomorrow. Will need to f/u with GI as an out patient. Monitor showed Poor Appetite - Continue Megace. - Nutritional supplements DVT prophylaxis: SCDs, Eliquis Discussed with patient, nursing, case management, Dr. Escalante Discharge Planning Plan for DC to SNF tomorrow when PICC line is placed. CM following, patient to go to the [facility]. Problem Qualifiers (1) Protein calorie malnutrition: Qualified Codes: E43 - Unspecified severe protein-calorie malnutrition (2) HTN (hypertension): Qualified Codes: I10 - Essential (primary) hypertension Warner Rizvi Jul 31, 2017 15:21
--- NOTE | 2017-07-31 15:46 | HHI.FF ---
Infusion Therapy Location of Infusion Therapy: [facility] Infusion Therapy Order Patient Information Patient Weight 47.2 kg Diagnosis: Diagnosis Osteo R ankle/lateral malleolus Coded Allergies: Influenza Virus Vaccines (Unverified Allergy, Severe, Respiratory Failure , 07/20/17) sulfamethoxazole (Unverified Allergy, Severe, SKIN PROBLEMS, 07/20/17) trimethoprim (Unverified Allergy, Severe, SKIN PROBLEMS, 07/20/17) Administer Medication Vancomycin 1 gram IV q 12 hours Stop Treatment: Sep 09, 2017 Additional Information Additional Medications Levaquin 750 mg po daily x 42 days Venous access: PICC Line Additional Instructions [x] Peripheral flush and dressing changes per protocol [x] Implanted port and central airline security representative: * Implanted port: 10 ml Normal Saline followed by 5 ml Heparin 100 units/ml Heparin flush after each use and monthly to maintain. [] May leave port accessed during therapy. [] May leave peripheral site accessed for duration of therapy. [x] If patient has SOB or respiratory distress, check oxygen saturation. If less than 90% or clinical signs of respiratory distress, administer oxygen at 2 L/min. via nasal cannula and notify physician. [x] Anaphylaxis/Reaction orders: * Stop infusion. * Keep IV line open with saline flush. * Notify physician. * Monitor vital signs every 15 minutes until symptoms resolve. * Check Oxygen saturation; Oxygen at 2 L/min. via nasal cannula if less than 90% or clinical signs of respiratory distress. * Administer diphenhydramine (Benadryl) 25 mg IV STAT, (unless patient has received as pre-med). May repeat once, if necessary. * Solu-Cortef 250 mg IVP over 30-60 seconds, use 100 mg vials for each dissolution. * Epinephrine (1mg/1 ml) 0.3 mg subcutaneously or IVP now with any signs of respiratory distress. * Check with physician for new additional pre-med orders if patient is re- challenged or re-treated. [x] May remove PICC line when treatment complete, after confirming with Physician. [x] If the patient is admitted to the hospital, the ED, or transferred via [facility] , complete transfer form including medication reconciliation order sheet. Laboratory Tests Weekly Labs: CBC w/diff, Creatinine, LFT's (Hepatic function test), Vancomycin Trough (Labs every Thursday; please consult pharmacy for Vanco dosing trough 15- 20) Beba Bray MD Jul 31, 2017 15:46
[2017-07-31 16:00] VITALS: BP 124/71; PULSE 90; RESP 18; TEMP 98.8; O2SAT 96
[2017-07-31] MEDS ORDERED: LEVA750T9 PO (17:41)
[2017-07-31] MEDS ORDERED: KONS100P3 PO (17:41)
[2017-07-31] MEDS ORDERED: CHOL5000 PO (17:41)
[2017-07-31] MEDS ORDERED: LACT PO (17:41)
[2017-07-31] MEDS ORDERED: COLL30T TOPICAL (17:41)
[2017-07-31] MEDS ORDERED: APIX5TAB PO (17:41)
[2017-07-31 20:00] VITALS: BP 136/63; PULSE 95; RESP 21; TEMP 97.7; O2SAT 95
[2017-07-31] MEDS ORDERED: ADULT - PICC FLUSH PRN FOR HEPARIN ALLERGY OR HIT DIAGNOSIS IV FLUSH ×2 (20:15)
--- NOTE | 2017-07-31 21:24 | RADRPT ---
EXAM DATE/TIME: 07/31/2017 20:19 [facility] COMPARISON: CHEST SINGLE AP, July 26, 2017, 15:42. INDICATIONS : PICC line placement. MEDICAL HISTORY : Cardiovascular disease. Hypertension Lupus. Hep C. SURGICAL HISTORY : Hysterectomy. ENCOUNTER: Initial ACUITY: 1 day PAIN SCORE: 0/10 LOCATION: Bilateral chest FINDINGS: A single view of the chest demonstrates left PICC line in superior vena cava. Cardiomegaly. Trace ple ural effusions and mild basilar airspace disease similar to July 26. Previous fixation right proxim al humerus. CONCLUSION: 1. Placement of left PICC line with tip in superior vena cava. Stable small effusions and basilar air space disease. Bert Wiggins MD on July 31, 2017 at 21:15 Board Certified Radiologist. This report was verified electronically.
[2017-08-01] VITALS: BP 149/68; PULSE 95; RESP 19; TEMP 98.9; O2SAT 94
[2017-08-01] MEDS: ALPRAZolam 1 MG TAB PO PRN ×3 (01:05→22:08)
[2017-08-01] MEDS: VANCOMYCIN 1,000 MG/NS 250 ML IV SCH ×2 (03:21)
[2017-08-01] MEDS: ACETAMINOPHEN/HYDROcodone 325 MG/5 MG TAB PO PRN ×2 (03:22→10:01)
[2017-08-01] MEDS ORDERED: PHARMACY ORDERED LAB ONE (03:45)
[2017-08-01 04:00] VITALS: BP 123/58; PULSE 97; RESP 21; TEMP 98.5; O2SAT 95
[2017-08-01] MEDS: MORPHINE SULFATE 30 MG CONTROLLED RELEASE TAB PO SCH ×3 (06:18→21:59)
[2017-08-01 08:00] VITALS: BP 144/72; PULSE 96; RESP 18; TEMP 98.4; O2SAT 96
[2017-08-01] MEDS: PSYLLIUM FIBER SF/GF 6 GM POWD PKT PO SCH (09:00)
[2017-08-01] MEDS: SODIUM CHLORIDE 0.9% FLUSH 10 ML FLUSH IV FLUSH SCH ×2 (09:58→21:59)
[2017-08-01] MEDS: buPROPion HCL 150 MG SUSTAINED RELEASE TAB PO SCH ×2 (09:59→21:58)
[2017-08-01] MEDS: amLODIPine BESYLATE 5 MG TAB PO SCH (09:59)
[2017-08-01] MEDS: MULTIVITAMINS/MINERALS THERAPEUTIC TAB PO SCH (09:59)
[2017-08-01] MEDS: LEVOFLOXACIN 750 MG TAB PO SCH (09:59)
[2017-08-01] MEDS: PANTOPRAZOLE SOD 40 MG DELAYED RELEASE TAB PO SCH (09:59)
[2017-08-01] MEDS: LACTOBACILLUS ACIDOPHILUS TAB PO SCH ×3 (09:59→18:00)
[2017-08-01] MEDS: CHOLECALCIFEROL (VIT D3) 5000 UNIT CAP PO SCH (09:59)
[2017-08-01] MEDS: CLOPIDOGREL 75 MG TAB PO SCH (09:59)
[2017-08-01] MEDS: DICYCLOMINE HCL 10 MG CAP PO SCH ×2 (09:59→21:58)
[2017-08-01] MEDS: APIXABAN 5 MG TABLET PO SCH ×2 (09:59→21:58)
[2017-08-01] MEDS: MEGESTROL ACETATE SUSP 400 MG/10 ML CUP PO SCH (10:00)
[2017-08-01] MEDS: ASPIRIN EC 81 MG TABEC PO SCH (10:00)
[2017-08-01] MEDS: LISINOPRIL 20 MG TAB PO SCH ×2 (10:00→21:58)
[2017-08-01] MEDS: COLLAGENASE OINT 30 GM TUBE TOPICAL SCH (10:04)
[2017-08-01] MEDS: SERTRALINE HCL 100 MG TAB PO SCH ×2 (10:22→21:58)
[2017-08-01] MEDS: PRAVASTATIN SOD 40 MG TAB PO SCH (10:22)
[2017-08-01 12:00] VITALS: BP 131/80; PULSE 87; RESP 18; TEMP 97.4; O2SAT 95
--- NOTE | 2017-08-01 12:37 | HHI.PR ---
Subjective Remarks This is a pleasant 52 y/o Female with history of CVA and right sided weakness, status post fall, hit her head, recently hospitalized in May and she was discharge on June 30. she was found to have a decubitus in the sacral region as well as in the right lateral ankle. It was apparently & during her last admission. She has not been doing any care to her right ankle wound. X-ray of the ankle showed some findings of fracture. MRI showed possible osteomyelitis in the lateral malleolus. Podiatry has been evaluating the patient, and a [facility] WBC scan has been ordered. Culture of the ankle wound is growing streptococcus, enterococcus, MRSA, and Proteus. Patient is on Zosyn. She has not been febrile. Her WBC is normal. Biliary dilatation on CT scan, Significant increase in the dimension of the common bile duct when compared to 06/04/17, now measuring 13mm. Persistent mild dilation of the intrahepatic biliary ducts. Bilateral pleural effusions and bibasilar consolidation, similar to prior. LFTs are unremarkable. Occasional nausea. MRCP without contrast (07/28/17)---- > Dilated common duct to 11 mm but no evidence of stone or mass. Small bilateral effusions. HIDA Scan has been rescheduled for 08/01. ? need EUS as outpatient. chronic Anemia S/P [facility] in May of 2017. EGD/Colonoscopy (06/03/17)---> chronic gastritis, diverticulosis. She was also evaluated with bone marrow biopsy (06/03/17)---> normocellular bone marrow with trilineage hematopoiesis and erythroid hyperplasia, stainable iron is present (2-3+). Peripheral blood smear with severe hypochromic, microcytic anemia and mild leukopenia. 9.3/29.1. History of CVA on Eliquis, Plavix, ASA, has Lupus, Hyperlipidemia, Anxiety, Depression, FARIDA, ensure with meals, PPI, Lactinex Metamucil, Megace, Probable EUS as outpatient, Consider Hematology evaluation for Porphyria, GI specialist Signed Off. 08/01: As per Doctor Katarina recommended to continue six weeks of antibiotics, Vancomycin and Levaquin, cure rate higher if the wound will heal and close up, for Osteomyelitis as per MRI and WBC scan, bone not exposed, continue care by podiatry patient seen in her bedroom discussed with nurse Miss Carney a HIDA scan will be performed tomorrow. Objective Vital Signs Date Time Temp Pulse Resp B/P (MAP) Pulse Ox O2 Delivery O2 Flow Rate FiO2 08/01/17 08:00 98.4 96 18 144/72 (96) 96 08/01/17 07:25 17 08/01/17 04:19 18 08/01/17 04:00 Room Air 08/01/17 04:00 98.5 97 21 123/58 (79) 95 08/01/17 00:00 98.9 95 19 149/68 (95) 94 08/01/17 00:00 Room Air 07/31/17 21:45 Room Air 07/31/17 20:00 97.7 95 21 136/63 (87) 95 07/31/17 16:00 98.8 90 18 124/71 (88) 96 I/O 07/31/17 07/31/17 07/31/17 08/01/17 08/01/17 08/01/17 07:00 15:00 23:00 07:00 15:00 23:00 Intake Total 490 ml 600 ml 800 ml Output Total 450 ml Balance 40 ml 600 ml 800 ml Intake Oral 240 ml 600 ml 550 ml IV Total 250 ml 250 ml Output Urine Total 450 ml # Voids 5 5 # Bowel Movements 1 1 Result Diagram: 07/31/1744307/31/17443 Imaging Last Impressions Chest X-Ray 07/31/17 0000 Signed Impressions: Service Date/Time: Monday, July 31, 2017 20:19 - CONCLUSION: 1. Placement of left PICC line with tip in superior vena cava. Stable small effusions and basilar airspace disease. Bert Wiggins MD Tumor Localization 07/30/17 0000 Signed Impressions: Service Date/Time: July 13:05 - CONCLUSION: Osteomyelitis of the right distal fibula/lateral malleolus. Al Latham MD Cholangiopancreatography MRI 07/28/17 0000 Signed Impressions: Service Date/Time: Friday, July 28, 2017 11:14 - CONCLUSION: 1. Dilated common duct to 11 mm without evidence of stone or mass 2. Small bilateral effusions Rickie Hutchinson MD Ankle MRI 07/26/17 0000 Signed Impressions: Service Date/Time: Wednesday, July 26, 2017 16:53 - CONCLUSION: Marked enhancement along the lateral edge of the lateral malleolus with a soft tissue defect consistent with osteomyelitis. Juan Medeiros MD Abdomen/Pelvis CT 07/26/17 0000 Signed Impressions: Service Date/Time: Wednesday, July 26, 2017 19:55 - CONCLUSION: 1. Significant increase in the dimension of the common bile duct when compared to 06/04/17, now measuring 13 mm. Persistent mild dilation of the intrahepatic biliary ducts. Recommend correlation with clinical labs for collaborating evidence of biliary obstruction. 2. Bilateral pleural effusions and bibasilar consolidation, similar to prior. Dylan Greenberg MD Ankle X-Ray 07/25/17 0000 Signed Impressions: Service Date/Time: Tuesday, July 25, 2017 20:31 - CONCLUSION: Linear fractures of the distal fibula from diametaphysis to lateral malleolus and associated soft tissue irregularity adjacent to the lateral malleolus. Dylan Greenberg MD Head CT 07/20/17 0000 Signed Impressions: Service Date/Time: Thursday, July 20, 2017 17:33 - CONCLUSION: 1. There is an area of encephalomalacia in the randy suggesting an old area of infarct. 2. No acute intracranial abnormality is identified. 3. 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 Stephen Serrano MD Procedures None Other Results Laboratory Tests Test 07/20/17 16:10 07/20/17 16:15 07/21/17 10:35 07/23/17 12:35 Urine Hyaline Casts 6 /lpf Urine Mucus FEW /lpf Lactic Acid Level 1.6 mmol/L Nasal Screen MRSA (PCR) MRSA DETECTED Vitamin B12 Level 487 PG/ML 25-Hydroxy Vitamin D Total 13.0 ng/ML Test 07/24/17 15:45 07/26/17 12:49 07/28/17 06:50 07/29/17 09:22 Urine Color YELLOW Urine Turbidity HAZY Urine pH 8.0 Urine Specific Nitro 1.014 Urine Protein 30 mg/dL Urine Glucose (UA) NEG mg/dL Urine Ketones NEG mg/dL Urine Occult Blood SMALL Urine Nitrite NEG Urine Bilirubin NEG Urine Urobilinogen LESS THAN 2.0 MG/DL Urine Leukocyte Esterase LARGE Urine RBC 5 /hpf Urine WBC 36 /hpf Urine Squamous Epithelial Cells 4 /hpf Urine Bacteria MOD /hpf Microscopic Urinalysis Comment CULTURE INDICATED Neutrophils (%) (Auto) 70.3 % Lymphocytes (%) (Auto) 25.3 % Monocytes (%) (Auto) 3.7 % Eosinophils (%) (Auto) 0.2 % Basophils (%) (Auto) 0.5 % Neutrophils # (Auto) 2.7 TH/MM3 Lymphocytes # (Auto) 1.0 TH/MM3 Monocytes # (Auto) 0.1 TH/MM3 Eosinophils # (Auto) 0.0 TH/MM3 Basophils # (Auto) 0.0 TH/MM3 Erythrocyte Sedimentation Rate 40 mm/hr C-Reactive Protein 6.43 MG/DL CBC Comment AUTO DIFF Differential Total Cells Counted 100 Neutrophils % (Manual) 56 % Band Neutrophils % 1 % Lymphocytes % 31 % Monocytes % 10 % Eosinophils % 1 % Basophils % 1 % Neutrophils # (Manual) 4.1 TH/MM3 Nucleated Red Blood Cells 1 /100 WBC Differential Comment FINAL DIFF MANUAL Atypical Lymphocytes % Platelet Estimate NORMAL Platelet Morphology Comment NORMAL Blood Urea Nitrogen 10 MG/DL Creatinine 0.38 MG/DL Random Glucose 86 MG/DL Total Protein 6.3 GM/DL Albumin 1.8 GM/DL Calcium Level 8.4 MG/DL Phosphorus Level 3.0 MG/DL Magnesium Level 2.0 MG/DL Alkaline Phosphatase 75 U/L Aspartate Amino Transf (AST/SGOT) 27 U/L Alanine Aminotransferase (ALT/SGPT) 9 U/L Total Bilirubin 0.3 MG/DL Sodium Level 139 MEQ/L Potassium Level 4.0 MEQ/L Chloride Level 106 MEQ/L Carbon Dioxide Level 24.8 MEQ/L Test 07/31/17 04:44 08/01/17 03:18 White Blood Count 3.4 TH/MM3 Red Blood Count 3.06 MIL/MM3 Hemoglobin 8.0 GM/DL Hematocrit 24.9 % Mean Corpuscular Volume 81.5 FL Mean Corpuscular Hemoglobin 26.3 PG Mean Corpuscular Hemoglobin Concent 32.2 % Red Cell Distribution Width 19.5 % Platelet Count 288 TH/MM3 Mean Platelet Volume 7.0 FL Blood Urea Nitrogen 13 MG/DL Creatinine 0.35 MG/DL Random Glucose 67 MG/DL Total Protein 6.1 GM/DL Albumin 1.7 GM/DL Calcium Level 7.9 MG/DL Alkaline Phosphatase 64 U/L Aspartate Amino Transf (AST/SGOT) 23 U/L Alanine Aminotransferase (ALT/SGPT) 12 U/L Total Bilirubin 0.1 MG/DL Direct Bilirubin 0.1 MG/DL Sodium Level 140 MEQ/L Potassium Level 4.0 MEQ/L Chloride Level 107 MEQ/L Carbon Dioxide Level 25.7 MEQ/L Anion Gap 7 MEQ/L Estimat Glomerular Filtration Rate 194 ML/MIN Indirect Bilirubin 0.0 MG/DL Vancomycin Level Trough 12.3 MCG/ML Objective Remarks GENERAL: This is a thinly appearing, well-developed patient, appears weak. SKIN: Warm and dry. HEENT: Normocephalic. Pupils equal round and reactive. Nose without bleeding. Airway patent. NECK: Trachea midline. No JVD. Supple. CARDIOVASCULAR: Regular rate and rhythm without murmurs, gallops, or rubs. RESPIRATORY: Diminished bases. No wheezes, rales, or rhonchi. GASTROINTESTINAL: Abdomen soft, non-tender, nondistended. Bowel Sounds normoactive x4. MUSCULOSKELETAL: Extremities without clubbing, cyanosis, or edema. Right ankle wound DTI. NEUROLOGICAL: Awake and alert. Oriented to time, place, person. No focal neuro deficit. Moves all extremities weakly, Right sided weakness. Normal speech. Medications and IVs Current Medications Medications (Trade) Dose Ordered Sig/[place] Route Start Time Stop Time Status Last Admin (NS Flush) 2 ml UNSCH PRN IV FLUSH 07/20/17 22:30 07/20/17 23:59 (NS Flush) 2 ml BID IV FLUSH 07/21/17 09:00 08/01/17 09:58 (Tylenol) 650 mg Q4H PRN PO 07/20/17 22:30 (Zofran Inj) 4 mg Q6H PRN IVP 07/20/17 22:30 (Senokot) 17.2 mg Q12H PRN PO 07/20/17 22:30 (Lactulose Liq) 30 ml DAILY PRN PO 07/20/17 22:30 (Ecotrin Ec) 81 mg DAILY PO 07/21/17 09:00 08/01/17 10:00 (Wellbutrin Sr) 150 mg BID PO 07/21/17 09:00 08/01/17 09:59 (Plavix) 75 mg DAILY PO 07/21/17 09:00 08/01/17 09:59 (Bentyl) 10 mg BID PO 07/21/17 09:00 08/01/17 09:59 (Microzide) 12.5 mg DAILY PO 07/21/17 09:00 Future Hold 07/24/17 09:05 (Prinivil) 20 mg BID PO 07/21/17 09:00 08/01/17 10:00 (Protonix) 40 mg DAILY PO 07/21/17 09:00 08/01/17 09:59 (Zoloft) 100 mg BID PO 07/21/17 09:00 08/01/17 10:22 (Carafate) 1 gm BID PRN PO 07/20/17 23:45 (Pravachol) 40 mg DAILY PO 07/21/17 09:00 08/01/17 10:22 (Desyrel) 150 mg HS PO 07/21/17 21:00 Future Hold (Eliquis) 5 mg BID PO 07/21/17 09:00 08/01/17 09:59 (Tylenol) 650 mg Q6H PRN PO 07/21/17 12:00 (Xanax) 2 mg Q8H PRN PO 07/21/17 14:15 08/01/17 10:01 (Oramorph Sr) 30 mg Q8H PO 07/21/17 15:00 08/01/17 06:18 (Nazareth 5-325 Mg) 1 tab Q6H PRN PO 07/23/17 11:00 08/01/17 10:01 (Santyl Oint) 1 applic DAILY TOPICAL 07/23/17 12:00 08/01/17 10:04 (Vitamin D3) 5,000 units DAILY PO 07/24/17 09:00 08/01/17 09:59 (Norvasc) 5 mg DAILY PO 07/24/17 10:30 08/01/17 09:59 (Theragran M Tab) 1 tab DAILY PO 07/26/17 15:45 08/01/17 09:59 (Metamucil Smooth Texture Sf/ Gf Pkt) 1 pkt DAILY PO 07/28/17 09:00 07/29/17 08:36 (Lactinex) 1 tab TID PO 07/28/17 09:00 08/01/17 09:59 (Levaquin) 750 mg DAILY PO 07/28/17 15:00 10/7/17 09:59 Pharmacy Profile Note 0 ml @ 0 mls/hr UNSCH OTHER 07/28/17 14:15 (Megace Liq) 400 mg DAILY PO 07/29/17 09:00 08/01/17 10:00 (Heparin Central Flush) See Protocol DAILY IV FLUSH 08/01/17 09:00 08/01/17 09:58 (Heparin Central Flush) See Protocol UNSCH PRN IV FLUSH 07/31/17 20:15 (NS Flush) UNSCH PRN IV FLUSH 07/31/17 20:15 (NS Flush) See Protocol UNSCH PRN IV FLUSH 07/31/17 20:15 (NS Flush) SEE PROTOCOL UNSCH PRN IV FLUSH 07/31/17 20:15 Vancomycin HCl 1250 mg/Sodium Chloride 262.5 ml @ 250 mls/hr Q12H IV 08/01/17 15:00 Miscellaneous Information SPECIFIC LAB TO BE DRAWN:VANCO TROUGH DATE TO... ONCE ONCE .XX 08/02/17 14:45 08/02/17 14:46 A/P Assessment and Plan 52 y/o female with a history CVA with right sided paralysis, HTN, HLD, Lupus, anxiety and depression was sent to the ED by her home health nurse for weakness evaluation. Low-grade fevers: Tmax 99.7 on 07/23. Symptoms more consistent with UTI. Other potential source is right ankle wound. Does not meet sepsis criteria - Right ankle wound culture collected by wound care physician, growing Proteus mirabilis, MRSA, group a beta strep, group D enterococcus - Urine culture grew mixed gram-positive and gram-negative mesfin. Likely contaminant. - Blood cultures growing Propionibacterium Acnes. ID Following recommends the vancomycin, Levaquin to continue upon discharge to SNF Total self care deficit: patient unable to be left alone at home, unable to care for self, patient and suffered a fall at home and now is also in the hospital. Generalized weakness: Likely due to chronic medical conditions - Head CT reviewed and shows no acute abnormalities - Continue daily PT while admitted -B12 and vitamin D level are low, give replacement - Plan for SNF placement to continue rehabilitation Severe Protein Calorie Malnutrition: cachectic, bitemporal wasting, low albumin 1.7, BMI 17, weight 48kg, unhealing wounds Sacral decub stage 4, and right ankle ulcer stage 3, present on admission - Consulted wound care for recommendations - Dietitian consulted. Recommended cardiac diet with Enlive 3 times a day. Recommended Theragran-M daily. HTN, chronic: - Continue home lisinopril, HCTZ. - DC'd losartan with double angiotensin blocking coverage. DC hydrochlorothiazide secondary to patient's request has been urinating a lot - We'll place patient on amlodipine - BP well controlled currently on lisinopril and amlodipine Chronic Pain & Anxiety: Continue home meds including Oramorph 30mg po q8h and Xanax 2mg q8h prn. -Continue Nazareth as needed for breakthrough. - pain seems to be controlled. Continue management as above. History of CVA with residual right-sided weakness: - Continue Eliquis. Right ankle wound - Dr Buitrago evaluated patient - recommends arterial blood flow studies and x -rays. Continue with Santyl daily and dry sterile there are since on the right. Cooper offloading boot for the right leg was ordered. - MRI shows osteomyelitis and wound culture from ankle is growing Proteus mirabilis, MRSA, group A beta strep and group D enterococcus.- will consult ID - ID consulted. Antibiotics changed to IV Vancomycin and oral Levaquin. - Antibiotics per ID. will be on vancomycin IV every 12 hours stop date 09/09, Levaquin 750 mg 4-2 days Hypoxemia - Patient's o2 saturation in the 90's, patient not in distress - resolved - Incentive spirometry. Chest x-ray showed small right pleural effusion, some adjacent consolidation, likely atelectasis - Patient sating well on room air. abdominal pain Patient still complains of abdominal pain. CT of the abdomen and pelvis showed significant increase in the dimension of the common bile duct when compared to and now measures 13 mm. However AST, AST and alkaline phosphatase are normal. There is persistent mild dilation of the intrahepatic biliary ducts. - GI consult noted. HIDA scan vs EUS. follow up GI recommendations. - MRCP negative - GI ordered HIDA scan, has not been done today. Spoke with Maida Pitts, with Dr. Lagos, will hold off HIDA scan if patient is DC to SNF tomorrow. Will need to f/u with GI as an out patient. Discussed with Nurse and patient awaiting for HIDA scan to be performed Monitor showed Poor Appetite - Continue Megace. - Nutritional supplements DVT prophylaxis: SCDs, Eliquis Discharge Planning Plan for DC to SNF when PICC line is placed. CM following, patient to go to the [facility]. Francisco Emery MD Aug 01, 2017 12:37
[2017-08-01] MEDS: VANCOMYCIN INJ 1,250 MG in SODIUM CHLOR 0.9% 250 ML INJ 250 ML IV SCH (14:39)
[2017-08-01 16:00] VITALS: BP 144/67; PULSE 97; RESP 18; TEMP 97.8; O2SAT 96
[2017-08-01 20:00] VITALS: BP 114/53; PULSE 92; RESP 20; TEMP 98.5; O2SAT 96
[2017-08-02] VITALS: BP 103/73; PULSE 88; RESP 18; TEMP 98; O2SAT 94
[2017-08-02 04:00] VITALS: BP 134/76; PULSE 89; RESP 18; TEMP 97.9; O2SAT 96
[2017-08-02] MEDS: VANCOMYCIN INJ 1,250 MG in SODIUM CHLOR 0.9% 250 ML INJ 250 ML IV SCH ×2 (04:07→14:44)
[2017-08-02] MEDS: MORPHINE SULFATE 30 MG CONTROLLED RELEASE TAB PO SCH ×2 (07:00→14:42)
[2017-08-02 08:00] VITALS: BP 123/63; PULSE 90; RESP 18; TEMP 99.3; O2SAT 93
--- NOTE | 2017-08-02 11:03 | RADRPT ---
EXAM DATE/TIME: 08/02/2017 09:13 This report includes an Addendum and supersedes previous reports for this exam. [facility] COMPARISON: MRCP W/O CONTRAST, July 28, 2017, 11:14. CT ABDOMEN & PELVIS W CONTRAST, July 26, 2017, 19:55. WBC SPECT CERETEC, July 30, 2017, 13:05. INDICATIONS : Abdomen pain and nausea. Abnormal CT scan. DOSE: 4.1 mCi Tc99m Mebrofenin IV MEDICAL HISTORY : Lupus. Hepatitis C. Hypertension. SURGICAL HISTORY : Rotator cuff, right. Hysterectomy. Inguinal hernia repair. ENCOUNTER: Initial ACUITY: 2 days PAIN SCALE: 0/10 LOCATION: Right upper quadrant TECHNIQUE: Following the intravenous administration of radiotracer, dynamic sequential images were performed wit h continuous acquisition. FINDINGS: HEPATIC KINETICS: There is prompt uptake of radiotracer in the liver. No focal defects are seen. There is normal rate of washout from the hepatic parenchyma. BILIARY CLEARANCE: Activity is first seen in the extrahepatic biliary system at 15 minutes. There is normal excretion i nto the small bowel. GALLBLADDER: Activity was not identified within the gallbladder. Delayed imaging to assess for gallbladder filling would be warranted. BILIARY ENTRIC REFLUX: None observed. CONCLUSION: 1. No definite findings to indicate obstruction of the common bile duct are seen. There is biliary to bowel transit. 2. The gallbladder is never clearly identified. There may be a very limited amount of filling on the last frame for the study. Delayed imaging to exclude cholecystitis as warranted. Stephen Serrano MD on August 02, 2017 at 10:58 Board Certified Radiologist. This report was verified electronically. ADDENDUM: Patient was discharged prior to 20 hour scan. Olaf Serrano MD FACR on August 03, 2017 at 9:19 Board Certified Radiologist. This report was verified electronically.
[2017-08-02 12:00] VITALS: BP 133/63; PULSE 91; RESP 18; TEMP 99.2; O2SAT 94
[2017-08-02] MEDS: PANTOPRAZOLE SOD 40 MG DELAYED RELEASE TAB PO SCH (12:17)
[2017-08-02] MEDS: MULTIVITAMINS/MINERALS THERAPEUTIC TAB PO SCH (12:17)
[2017-08-02] MEDS: CHOLECALCIFEROL (VIT D3) 5000 UNIT CAP PO SCH (12:18)
[2017-08-02] MEDS: amLODIPine BESYLATE 5 MG TAB PO SCH (12:19)
[2017-08-02] MEDS: DICYCLOMINE HCL 10 MG CAP PO SCH (12:19)
[2017-08-02] MEDS: SERTRALINE HCL 100 MG TAB PO SCH (12:19)
[2017-08-02] MEDS: ASPIRIN EC 81 MG TABEC PO SCH (12:19)
[2017-08-02] MEDS: LEVOFLOXACIN 750 MG TAB PO SCH (12:20)
[2017-08-02] MEDS: buPROPion HCL 150 MG SUSTAINED RELEASE TAB PO SCH (12:20)
[2017-08-02] MEDS: CLOPIDOGREL 75 MG TAB PO SCH (12:20)
[2017-08-02] MEDS: PRAVASTATIN SOD 40 MG TAB PO SCH (12:21)
[2017-08-02] MEDS: LISINOPRIL 20 MG TAB PO SCH (12:22)
[2017-08-02] MEDS: APIXABAN 5 MG TABLET PO SCH (12:22)
[2017-08-02] MEDS: MEGESTROL ACETATE SUSP 400 MG/10 ML CUP PO SCH (12:23)
[2017-08-02] MEDS: LACTOBACILLUS ACIDOPHILUS TAB PO SCH (12:23)
[2017-08-02] MEDS: PSYLLIUM FIBER SF/GF 6 GM POWD PKT PO SCH (12:23)
[2017-08-02] MEDS: SODIUM CHLORIDE 0.9% FLUSH 10 ML FLUSH IV FLUSH SCH (12:25)
--- NOTE | 2017-08-02 12:43 | HHI.PR ---
Subjective Remarks This is a pleasant 52 y/o Female with history of CVA and right sided weakness, status post fall, hit her head, recently hospitalized in May and she was discharge on June 30. she was found to have a decubitus in the sacral region as well as in the right lateral ankle. It was apparently & during her last admission. She has not been doing any care to her right ankle wound. X-ray of the ankle showed some findings of fracture. MRI showed possible osteomyelitis in the lateral malleolus. Podiatry has been evaluating the patient, and a [facility] WBC scan has been ordered. Culture of the ankle wound is growing streptococcus, enterococcus, MRSA, and Proteus. Patient is on Zosyn. She has not been febrile. Her WBC is normal. Biliary dilatation on CT scan, Significant increase in the dimension of the common bile duct when compared to 06/04/17, now measuring 13mm. Persistent mild dilation of the intrahepatic biliary ducts. Bilateral pleural effusions and bibasilar consolidation, similar to prior. LFTs are unremarkable. Occasional nausea. MRCP without contrast (07/28/17)---- > Dilated common duct to 11 mm but no evidence of stone or mass. Small bilateral effusions. HIDA Scan has been rescheduled for 08/01. ? need EUS as outpatient. chronic Anemia S/P [facility] in May of 2017. EGD/Colonoscopy (06/03/17)---> chronic gastritis, diverticulosis. She was also evaluated with bone marrow biopsy (06/03/17)---> normocellular bone marrow with trilineage hematopoiesis and erythroid hyperplasia, stainable iron is present (2-3+). Peripheral blood smear with severe hypochromic, microcytic anemia and mild leukopenia. 9.3/29.1. History of CVA on Eliquis, Plavix, ASA, has Lupus, Hyperlipidemia, Anxiety, Depression, FARIDA, ensure with meals, PPI, Lactinex Metamucil, Megace, Probable EUS as outpatient, Consider Hematology evaluation for Porphyria, GI specialist Signed Off. 08/01: As per Doctor Katarina recommended to continue six weeks of antibiotics, Vancomycin and Levaquin, cure rate higher if the wound will heal and close up, for Osteomyelitis as per MRI and WBC scan, bone not exposed, continue care by podiatry patient seen in her bedroom discussed with nurse Miss Carney a HIDA scan will be performed tomorrow. 08/02: Stable in her bedroom had HIDA scan performed did not found pathology, okay to discharge to SNF she had the PICC line placed no nausea, vomit or diarrhea. Objective Vital Signs Date Time Temp Pulse Resp B/P (MAP) Pulse Ox O2 Delivery O2 Flow Rate FiO2 08/02/17 12:00 99.2 91 18 133/63 (86) 94 08/02/17 08:00 99.3 90 18 123/63 (83) 93 08/02/17 04:00 97.9 89 18 134/76 (95) 96 08/02/17 00:00 98.0 88 18 103/73 (83) 94 08/01/17 23:04 16 08/01/17 20:00 98.5 92 20 114/53 (73) 96 08/01/17 16:00 97.8 97 18 144/67 (92) 96 I/O 08/01/17 08/01/17 08/01/17 08/02/17 08/02/17 08/02/17 07:00 15:00 23:00 07:00 15:00 23:00 Intake Total 800 ml 1220 ml 240 ml Output Total 400 ml Balance 800 ml 820 ml 240 ml Intake Oral 550 ml 720 ml 240 ml IV Total 250 ml 500 ml Output Urine Total 400 ml # Voids 5 4 # Bowel Movements 1 1 Result Diagram: 07/31/17 0444 07/31/17 0444 Imaging Last Impressions Chest X-Ray 07/31/17 0000 Signed Impressions: Service Date/Time: Monday, July 31, 2017 20:19 - CONCLUSION: 1. Placement of left PICC line with tip in superior vena cava. Stable small effusions and basilar airspace disease. Bert Wiggins MD Tumor Localization 07/30/17 0000 Signed Impressions: Service Date/Time: July 13:05 - CONCLUSION: Osteomyelitis of the right distal fibula/lateral malleolus. Al Latham MD Cholangiopancreatography MRI 07/28/17 0000 Signed Impressions: Service Date/Time: Friday, July 28, 2017 11:14 - CONCLUSION: 1. Dilated common duct to 11 mm without evidence of stone or mass 2. Small bilateral effusions Rickie Hutchinson MD Ankle MRI 07/26/17 0000 Signed Impressions: Service Date/Time: Wednesday, July 26, 2017 16:53 - CONCLUSION: Marked enhancement along the lateral edge of the lateral malleolus with a soft tissue defect consistent with osteomyelitis. Juan Medeiros MD Abdomen/Pelvis CT 07/26/17 0000 Signed Impressions: Service Date/Time: Wednesday, July 26, 2017 19:55 - CONCLUSION: 1. Significant increase in the dimension of the common bile duct when compared to 06/04/17, now measuring 13 mm. Persistent mild dilation of the intrahepatic biliary ducts. Recommend correlation with clinical labs for collaborating evidence of biliary obstruction. 2. Bilateral pleural effusions and bibasilar consolidation, similar to prior. Dylan Greenberg MD Ankle X-Ray 07/25/17 0000 Signed Impressions: Service Date/Time: Tuesday, July 25, 2017 20:31 - CONCLUSION: Linear fractures of the distal fibula from diametaphysis to lateral malleolus and associated soft tissue irregularity adjacent to the lateral malleolus. Dylan Greenberg MD Head CT 07/20/17 0000 Signed Impressions: Service Date/Time: Thursday, July 20, 2017 17:33 - CONCLUSION: 1. There is an area of encephalomalacia in the randy suggesting an old area of infarct. 2. No acute intracranial abnormality is identified. 3. 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 Stephen Serrano MD Procedures None Other Results Laboratory Tests Test 07/20/17 16:10 07/20/17 16:15 07/21/17 10:35 07/23/17 12:35 Urine Hyaline Casts 6 /lpf Urine Mucus FEW /lpf Lactic Acid Level 1.6 mmol/L Nasal Screen MRSA (PCR) MRSA DETECTED Vitamin B12 Level 487 PG/ML 25-Hydroxy Vitamin D Total 13.0 ng/ML Test 07/24/17 15:45 07/26/17 12:49 07/28/17 06:50 07/29/17 09:22 Urine Color YELLOW Urine Turbidity HAZY Urine pH 8.0 Urine Specific [place] 1.014 Urine Protein 30 mg/dL Urine Glucose (UA) NEG mg/dL Urine Ketones NEG mg/dL Urine Occult Blood SMALL Urine Nitrite NEG Urine Bilirubin NEG Urine Urobilinogen LESS THAN 2.0 MG/DL Urine Leukocyte Esterase LARGE Urine RBC 5 /hpf Urine WBC 36 /hpf Urine Squamous Epithelial Cells 4 /hpf Urine Bacteria MOD /hpf Microscopic Urinalysis Comment CULTURE INDICATED Neutrophils (%) (Auto) 70.3 % Lymphocytes (%) (Auto) 25.3 % Monocytes (%) (Auto) 3.7 % Eosinophils (%) (Auto) 0.2 % Basophils (%) (Auto) 0.5 % Neutrophils # (Auto) 2.7 TH/MM3 Lymphocytes # (Auto) 1.0 TH/MM3 Monocytes # (Auto) 0.1 TH/MM3 Eosinophils # (Auto) 0.0 TH/MM3 Basophils # (Auto) 0.0 TH/MM3 Erythrocyte Sedimentation Rate 40 mm/hr C-Reactive Protein 6.43 MG/DL CBC Comment AUTO DIFF Differential Total Cells Counted 100 Neutrophils % (Manual) 56 % Band Neutrophils % 1 % Lymphocytes % 31 % Monocytes % 10 % Eosinophils % 1 % Basophils % 1 % Neutrophils # (Manual) 4.1 TH/MM3 Nucleated Red Blood Cells 1 /100 WBC Differential Comment FINAL DIFF MANUAL Atypical Lymphocytes % Platelet Estimate NORMAL Platelet Morphology Comment NORMAL Blood Urea Nitrogen 10 MG/DL Creatinine 0.38 MG/DL Random Glucose 86 MG/DL Total Protein 6.3 GM/DL Albumin 1.8 GM/DL Calcium Level 8.4 MG/DL Phosphorus Level 3.0 MG/DL Magnesium Level 2.0 MG/DL Alkaline Phosphatase 75 U/L Aspartate Amino Transf (AST/SGOT) 27 U/L Alanine Aminotransferase (ALT/SGPT) 9 U/L Total Bilirubin 0.3 MG/DL Sodium Level 139 MEQ/L Potassium Level 4.0 MEQ/L Chloride Level 106 MEQ/L Carbon Dioxide Level 24.8 MEQ/L Test 07/31/17 04:44 08/01/17 03:18 White Blood Count 3.4 TH/MM3 Red Blood Count 3.06 MIL/MM3 Hemoglobin 8.0 GM/DL Hematocrit 24.9 % Mean Corpuscular Volume 81.5 FL Mean Corpuscular Hemoglobin 26.3 PG Mean Corpuscular Hemoglobin Concent 32.2 % Red Cell Distribution Width 19.5 % Platelet Count 288 TH/MM3 Mean Platelet Volume 7.0 FL Blood Urea Nitrogen 13 MG/DL Creatinine 0.35 MG/DL Random Glucose 67 MG/DL Total Protein 6.1 GM/DL Albumin 1.7 GM/DL Calcium Level 7.9 MG/DL Alkaline Phosphatase 64 U/L Aspartate Amino Transf (AST/SGOT) 23 U/L Alanine Aminotransferase (ALT/SGPT) 12 U/L Total Bilirubin 0.1 MG/DL Direct Bilirubin 0.1 MG/DL Sodium Level 140 MEQ/L Potassium Level 4.0 MEQ/L Chloride Level 107 MEQ/L Carbon Dioxide Level 25.7 MEQ/L Anion Gap 7 MEQ/L Estimat Glomerular Filtration Rate 194 ML/MIN Indirect Bilirubin 0.0 MG/DL Vancomycin Level Trough 12.3 MCG/ML Objective Remarks GENERAL: This is a thinly appearing, well-developed patient, appears weak. SKIN: Warm and dry. HEENT: Normocephalic. Pupils equal round and reactive. Nose without bleeding. Airway patent. NECK: Trachea midline. No JVD. Supple. CARDIOVASCULAR: Regular rate and rhythm without murmurs, gallops, or rubs. RESPIRATORY: Diminished bases. No wheezes, rales, or rhonchi. GASTROINTESTINAL: Abdomen soft, non-tender, nondistended. Bowel Sounds normoactive x4. MUSCULOSKELETAL: Extremities without clubbing, cyanosis, or edema. Right ankle wound DTI. NEUROLOGICAL: Awake and alert. Oriented to time, place, person. No focal neuro deficit. Moves all extremities weakly, Right sided weakness. Normal speech. Medications and IVs Current Medications Medications (Trade) Dose Ordered Sig/[place] Route Start Time Stop Time Status Last Admin (NS Flush) 2 ml UNSCH PRN IV FLUSH 07/20/17 22:30 07/20/17 23:59 (NS Flush) 2 ml BID IV FLUSH 07/21/17 09:00 08/02/17 12:25 (Tylenol) 650 mg Q4H PRN PO 07/20/17 22:30 (Zofran Inj) 4 mg Q6H PRN IVP 07/20/17 22:30 (Senokot) 17.2 mg Q12H PRN PO 07/20/17 22:30 (Lactulose Liq) 30 ml DAILY PRN PO 07/20/17 22:30 (Ecotrin Ec) 81 mg DAILY PO 07/21/17 09:00 08/02/17 12:19 (Wellbutrin Sr) 150 mg BID PO 07/21/17 09:00 08/02/17 12:20 (Plavix) 75 mg DAILY PO 07/21/17 09:00 08/02/17 12:20 (Bentyl) 10 mg BID PO 07/21/17 09:00 08/02/17 12:19 (Microzide) 12.5 mg DAILY PO 07/21/17 09:00 Future Hold 07/24/17 09:05 (Prinivil) 20 mg BID PO 07/21/17 09:00 08/02/17 12:22 (Protonix) 40 mg DAILY PO 07/21/17 09:00 08/02/17 12:17 (Zoloft) 100 mg BID PO 07/21/17 09:00 08/02/17 12:19 (Carafate) 1 gm BID PRN PO 07/20/17 23:45 (Pravachol) 40 mg DAILY PO 07/21/17 09:00 08/02/17 12:21 (Desyrel) 150 mg HS PO 07/21/17 21:00 Future Hold (Eliquis) 5 mg BID PO 07/21/17 09:00 08/02/17 12:22 (Tylenol) 650 mg Q6H PRN PO 07/21/17 12:00 (Xanax) 2 mg Q8H PRN PO 07/21/17 14:15 08/01/17 22:08 (Oramorph Sr) 30 mg Q8H PO 07/21/17 15:00 08/01/17 21:59 ([place] 5-325 Mg) 1 tab Q6H PRN PO 07/23/17 11:00 08/01/17 10:01 (Santyl Oint) 1 applic DAILY TOPICAL 07/23/17 12:00 08/01/17 10:04 (Vitamin D3) 5,000 units DAILY PO 07/24/17 09:00 08/02/17 12:18 (Norvasc) 5 mg DAILY PO 07/24/17 10:30 08/02/17 12:19 (Theragran M Tab) 1 tab DAILY PO 07/26/17 15:45 08/02/17 12:17 (Metamucil Smooth Texture Sf/ Gf Pkt) 1 pkt DAILY PO 07/28/17 09:00 07/29/17 08:36 (Lactinex) 1 tab TID PO 07/28/17 09:00 08/02/17 12:23 (Levaquin) 750 mg DAILY PO 07/28/17 15:00 08/02/17 12:20 Pharmacy Profile Note 0 ml @ 0 mls/hr UNSCH OTHER 07/28/17 14:15 (Megace Liq) 400 mg DAILY PO 07/29/17 09:00 08/02/17 12:23 (Heparin Central Flush) See Protocol DAILY IV FLUSH 08/01/17 09:00 08/02/17 12:25 (Heparin Central Flush) See Protocol UNSCH PRN IV FLUSH 07/31/17 20:15 (NS Flush) UNSCH PRN IV FLUSH 07/31/17 20:15 (NS Flush) See Protocol UNSCH PRN IV FLUSH 07/31/17 20:15 (NS Flush) SEE PROTOCOL UNSCH PRN IV FLUSH 07/31/17 20:15 Vancomycin HCl 1250 mg/Sodium Chloride 262.5 ml @ 250 mls/hr Q12H IV 08/01/17 15:00 08/02/17 04:07 Miscellaneous Information SPECIFIC LAB TO BE DRAWN:VANCO TROUGH DATE TO... ONCE ONCE .XX 08/02/17 14:45 08/02/17 14:46 A/P Assessment and Plan 52 y/o female with a history CVA with right sided paralysis, HTN, HLD, Lupus, anxiety and depression was sent to the ED by her home health nurse for weakness evaluation. Low-grade fevers: Tmax 99.7 on 07/23. Symptoms more consistent with UTI. Other potential source is right ankle wound. Does not meet sepsis criteria - Right ankle wound culture collected by wound care physician, growing Proteus mirabilis, MRSA, group a beta strep, group D enterococcus - Urine culture grew mixed gram-positive and gram-negative mesfin. Likely contaminant. - Blood cultures growing Propionibacterium Acnes. ID Following recommends the vancomycin, Levaquin to continue upon discharge to SNF Total self care deficit: patient unable to be left alone at home, unable to care for self, patient and suffered a fall at home and now is also in the hospital. Generalized weakness: Likely due to chronic medical conditions - Head CT reviewed and shows no acute abnormalities - Continue daily PT while admitted -B12 and vitamin D level are low, give replacement - Plan for SNF placement to continue rehabilitation Severe Protein Calorie Malnutrition: cachectic, bitemporal wasting, low albumin 1.7, BMI 17, weight 48kg, unhealing wounds Sacral decub stage 4, and right ankle ulcer stage 3, present on admission - Consulted wound care for recommendations - Dietitian consulted. Recommended cardiac diet with Enlive 3 times a day. Recommended Theragran-M daily. HTN, chronic: - Continue home lisinopril, HCTZ. - DC'd losartan with double angiotensin blocking coverage. DC hydrochlorothiazide secondary to patient's request has been urinating a lot - We'll place patient on amlodipine - BP well controlled currently on lisinopril and amlodipine Chronic Pain & Anxiety: Continue home meds including Oramorph 30mg po q8h and Xanax 2mg q8h prn. -Continue [place] as needed for breakthrough. - pain seems to be controlled. Continue management as above. History of CVA with residual right-sided weakness: - Continue Eliquis. Right ankle wound - Dr Buitrago evaluated patient - recommends arterial blood flow studies and x -rays. Continue with Santyl daily and dry sterile there are since on the right. Cooper offloading boot for the right leg was ordered. - MRI shows osteomyelitis and wound culture from ankle is growing Proteus mirabilis, MRSA, group A beta strep and group D enterococcus.- will consult ID - ID consulted. Antibiotics changed to IV Vancomycin and oral Levaquin. - Antibiotics per ID. will be on vancomycin IV every 12 hours stop date 09/09, Levaquin 750 mg 4-2 days Hypoxemia - Patient's o2 saturation in the 90's, patient not in distress - resolved - Incentive spirometry. Chest x-ray showed small right pleural effusion, some adjacent consolidation, likely atelectasis - Patient sating well on room air. abdominal pain Patient still complains of abdominal pain. CT of the abdomen and pelvis showed significant increase in the dimension of the common bile duct when compared to and now measures 13 mm. However AST, AST and alkaline phosphatase are normal. There is persistent mild dilation of the intrahepatic biliary ducts. - GI consult noted. HIDA scan vs EUS. follow up GI recommendations. - MRCP negative - GI ordered HIDA scan, has not been done today. Spoke with Maida Pitts, with Dr. Lagos, will hold off HIDA scan if patient is DC to SNF tomorrow. Will need to f/u with GI as an out patient. HIDA scan performed and no pathology found. Monitor showed Poor Appetite - Continue Megace. - Nutritional supplements DVT prophylaxis: SCDs, Eliquis Discharge Planning discharge to SNF Francisco Emery MD Aug 02, 2017 12:43
[2017-08-02] MEDS ORDERED: HYDR-3516 PO (13:10)
[2017-08-02] MEDS ORDERED: MORP1TAB25 PO (13:10)
--- NOTE | 2017-08-02 13:13 | HHI.DS ---
Discharge Summary Admission Date Jul 24, 2017 at 17:04 Discharge Date: Aug 02, 2017 Admitting Diagnosis IMPAIRED ABILITY TO CARE FOR SELF (1) Protein calorie malnutrition ICD Code: E46 - Unspecified protein-calorie malnutrition Diagnosis: Principal Status: Chronic (2) Total self-care deficit ICD Code: R41.89 - Other symptoms and signs involving cognitive functions and awareness Diagnosis: Principal Status: Acute (3) Hypokalemia ICD Code: E87.6 - Hypokalemia Diagnosis: Principal Status: Resolved (4) HTN (hypertension) ICD Code: I10 - Essential (primary) hypertension Status: Chronic (5) Impaired mobility and activities of daily living ICD Code: Z74.09 - Other reduced mobility Diagnosis: Principal Status: Acute Procedures None Brief History - From Admission 52 y/o female with a history CVA with right sided paralysis, HTN, HLD, Lupus, anxiety and depression was sent to the ED by her home health nurse for weakness evaluation. Patient states she has been home for about 3 weeks with home health care with PT/OT visits, and the nurse today came and said her and her looked very weak. She states last night she fell off the toilet and when her tried to help her up he fell on top of her. He was unable to get up himself so the both laid on the ground for about 5 hours before he was unable to get up. She states she hit her head but denies any LOC. She also denies any chest pain, sob, fever or chills. She does have a sacral wound and a wound to her right ankle that she states was there before she was discharged. Patient states she has been trying to eat well at home but can not afford ensure shakes to help increase her calories. She states she needs her to care for her at home or she can not go home due to the paralysis from the CVA. She does use a walker at home. CBC/BMP: 07/31/17 0444 07/31/17 0444 Significant Findings Laboratory Tests Test 07/31/17 04:44 08/01/17 03:18 White Blood Count 3.4 TH/MM3 (4.0-11.0) Red Blood Count 3.06 MIL/MM3 (4.00-5.30) Hemoglobin 8.0 GM/DL (11.6-15.3) Hematocrit 24.9 % (35.0-46.0) Mean Corpuscular Hemoglobin 26.3 PG (27.0-34.0) Red Cell Distribution Width 19.5 % (11.6-17.2) Creatinine 0.35 MG/DL (0.50-1.00) Random Glucose 67 MG/DL (74-106) Total Protein 6.1 GM/DL (6.4-8.2) Albumin 1.7 GM/DL (3.4-5.0) Calcium Level 7.9 MG/DL (8.5-10.1) Total Bilirubin 0.1 MG/DL (0.2-1.0) Vancomycin Level Trough 12.3 MCG/ML (5.0-10.0) Imaging Last Impressions Chest X-Ray 07/31/17 0000 Signed Impressions: Service Date/Time: Monday, July 31, 2017 20:19 - CONCLUSION: 1. Placement of left PICC line with tip in superior vena cava. Stable small effusions and basilar airspace disease. Bert Wiggins MD Tumor Localization 07/30/17 0000 Signed Impressions: Service Date/Time: July 13:05 - CONCLUSION: Osteomyelitis of the right distal fibula/lateral malleolus. Al Latham MD Cholangiopancreatography MRI 07/28/17 0000 Signed Impressions: Service Date/Time: Friday, July 28, 2017 11:14 - CONCLUSION: 1. Dilated common duct to 11 mm without evidence of stone or mass 2. Small bilateral effusions Rickie Hutchinson MD Ankle MRI 07/26/17 0000 Signed Impressions: Service Date/Time: Wednesday, July 26, 2017 16:53 - CONCLUSION: Marked enhancement along the lateral edge of the lateral malleolus with a soft tissue defect consistent with osteomyelitis. Juan Medeiros MD Abdomen/Pelvis CT 07/26/17 0000 Signed Impressions: Service Date/Time: Wednesday, July 26, 2017 19:55 - CONCLUSION: 1. Significant increase in the dimension of the common bile duct when compared to 8/10/17, now measuring 13 mm. Persistent mild dilation of the intrahepatic biliary ducts. Recommend correlation with clinical labs for collaborating evidence of biliary obstruction. 2. Bilateral pleural effusions and bibasilar consolidation, similar to prior. Dylan Greenberg MD Ankle X-Ray 07/25/17 0000 Signed Impressions: Service Date/Time: Tuesday, July 25, 2017 20:31 - CONCLUSION: Linear fractures of the distal fibula from diametaphysis to lateral malleolus and associated soft tissue irregularity adjacent to the lateral malleolus. Dylan Greenberg MD Head CT 07/20/17 0000 Signed Impressions: Service Date/Time: Thursday, July 20, 2017 17:33 - CONCLUSION: 1. There is an area of encephalomalacia in the randy suggesting an old area of infarct. 2. No acute intracranial abnormality is identified. 3. 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 Stephen Serrano MD PE at Discharge GENERAL: This is a thinly appearing, well-developed patient, appears weak. SKIN: Warm and dry. HEENT: Normocephalic. Pupils equal round and reactive. Nose without bleeding. Airway patent. NECK: Trachea midline. No JVD. Supple. CARDIOVASCULAR: Regular rate and rhythm without murmurs, gallops, or rubs. RESPIRATORY: Diminished bases. No wheezes, rales, or rhonchi. GASTROINTESTINAL: Abdomen soft, non-tender, nondistended. Bowel Sounds normoactive x4. MUSCULOSKELETAL: Extremities without clubbing, cyanosis, or edema. Right ankle wound DTI. NEUROLOGICAL: Awake and alert. Oriented to time, place, person. No focal neuro deficit. Moves all extremities weakly, Right sided weakness. Normal speech. Hospital Course This is a pleasant 52 y/o Female with history of CVA and right sided weakness, status post fall, hit her head, recently hospitalized in May and she was discharge on June 30. she was found to have a decubitus in the sacral region as well as in the right lateral ankle. It was apparently & during her last admission. She has not been doing any care to her right ankle wound. X-ray of the ankle showed some findings of fracture. MRI showed possible osteomyelitis in the lateral malleolus. Podiatry has been evaluating the patient, and a [facility] WBC scan has been ordered. Culture of the ankle wound is growing streptococcus, enterococcus, MRSA, and Proteus. Patient is on Zosyn. She has not been febrile. Her WBC is normal. Biliary dilatation on CT scan, Significant increase in the dimension of the common bile duct when compared to 06/04/17, now measuring 13mm. Persistent mild dilation of the intrahepatic biliary ducts. Bilateral pleural effusions and bibasilar consolidation, similar to prior. LFTs are unremarkable. Occasional nausea. MRCP without contrast (07/28/17)---- > Dilated common duct to 11 mm but no evidence of stone or mass. Small bilateral effusions. HIDA Scan has been rescheduled for 08/01. ? need EUS as outpatient. chronic Anemia S/P [facility] in May of 2017. EGD/Colonoscopy (06/03/17)---> chronic gastritis, diverticulosis. She was also evaluated with bone marrow biopsy (06/03/17)---> normocellular bone marrow with trilineage hematopoiesis and erythroid hyperplasia, stainable iron is present (2-3+). Peripheral blood smear with severe hypochromic, microcytic anemia and mild leukopenia. 9.3/29.1. History of CVA on Eliquis, Plavix, ASA, has Lupus, Hyperlipidemia, Anxiety, Depression, FARIDA, ensure with meals, PPI, Lactinex Metamucil, Megace, Probable EUS as outpatient, Consider Hematology evaluation for Porphyria, GI specialist Signed Off. 08/01: As per Doctor Katarina recommended to continue six weeks of antibiotics, Vancomycin and Levaquin, cure rate higher if the wound will heal and close up, for Osteomyelitis as per MRI and WBC scan, bone not exposed, continue care by podiatry patient seen in her bedroom discussed with nurse Miss Carney a HIDA scan will be performed tomorrow. 08/02: Stable in her bedroom had HIDA scan performed did not found pathology, okay to discharge to SNF she had the PICC line placed no nausea, vomit or diarrhea. Assessment and Plan 52 y/o female with a history CVA with right sided paralysis, HTN, HLD, Lupus, anxiety and depression was sent to the ED by her home health nurse for weakness evaluation. Low-grade fevers: Tmax 99.7 on 07/23. Symptoms more consistent with UTI. Other potential source is right ankle wound. Does not meet sepsis criteria - Right ankle wound culture collected by wound care physician, growing Proteus mirabilis, MRSA, group a beta strep, group D enterococcus - Urine culture grew mixed gram-positive and gram-negative mesfin. Likely contaminant. - Blood cultures growing Propionibacterium Acnes. ID Following recommends the vancomycin, Levaquin to continue upon discharge to SNF Total self care deficit: patient unable to be left alone at home, unable to care for self, patient and suffered a fall at home and now is also in the hospital. Generalized weakness: Likely due to chronic medical conditions - Head CT reviewed and shows no acute abnormalities - Continue daily PT while admitted -B12 and vitamin D level are low, give replacement - Plan for SNF placement to continue rehabilitation Severe Protein Calorie Malnutrition: cachectic, bitemporal wasting, low albumin 1.7, BMI 17, weight 48kg, unhealing wounds Sacral decub stage 4, and right ankle ulcer stage 3, present on admission - Consulted wound care for recommendations - Dietitian consulted. Recommended cardiac diet with Enlive 3 times a day. Recommended Theragran-M daily. HTN, chronic: - Continue home lisinopril, HCTZ. - DC'd losartan with double angiotensin blocking coverage. DC hydrochlorothiazide secondary to patient's request has been urinating a lot - We'll place patient on amlodipine - BP well controlled currently on lisinopril and amlodipine Chronic Pain & Anxiety: Continue home meds including Oramorph 30mg po q8h and Xanax 2mg q8h prn. -Continue [place] as needed for breakthrough. - pain seems to be controlled. Continue management as above. History of CVA with residual right-sided weakness: - Continue Eliquis. Right ankle wound - Dr Buitrago evaluated patient - recommends arterial blood flow studies and x -rays. Continue with Santyl daily and dry sterile there are since on the right. Striped Sail offloading boot for the right leg was ordered. - MRI shows osteomyelitis and wound culture from ankle is growing Proteus mirabilis, MRSA, group A beta strep and group D enterococcus.- will consult ID - ID consulted. Antibiotics changed to IV Vancomycin and oral Levaquin. - Antibiotics per ID. will be on vancomycin IV every 12 hours stop date 09/09, Levaquin 750 mg 4-2 days Hypoxemia - Patient's o2 saturation in the 90's, patient not in distress - resolved - Incentive spirometry. Chest x-ray showed small right pleural effusion, some adjacent consolidation, likely atelectasis - Patient sating well on room air. abdominal pain Patient still complains of abdominal pain. CT of the abdomen and pelvis showed significant increase in the dimension of the common bile duct when compared to and now measures 13 mm. However AST, AST and alkaline phosphatase are normal. There is persistent mild dilation of the intrahepatic biliary ducts. - GI consult noted. HIDA scan vs EUS. follow up GI recommendations. - MRCP negative - GI ordered HIDA scan, has not been done today. Spoke with Maida Pitts, with Dr. Lagos, will hold off HIDA scan if patient is DC to SNF tomorrow. Will need to f/u with GI as an out patient. HIDA scan performed and no pathology found. Monitor showed Poor Appetite - Continue Megace. - Nutritional supplements DVT prophylaxis: SCDs, Eliquis Discharge Planning discharge to SNF Pt Condition on Discharge: Stable Discharge Disposition: Discharge to SNF Discharge Time: > 30 minutes Discharge Instructions DIET: Follow Instructions for: Heart Healthy Diet Activities you can perform: Regular-No Restrictions Francisco Emery MD Aug 02, 2017 1:13 pm
[2017-08-02] MEDS: COLLAGENASE OINT 30 GM TUBE TOPICAL SCH (14:44)
[2017-08-02] MEDS ORDERED: PHARMACY ORDERED LAB ONE (14:45)
[2017-08-02] MEDS: ALPRAZolam 1 MG TAB PO PRN (15:02)
[2017-08-02 16:00] VITALS: BP 157/83; PULSE 102; RESP 18; TEMP 98.8; O2SAT 96
[2017-08-03] MEDS ORDERED: VANCOMYCIN INJ 1,000 MG in SODIUM CHLOR 0.9% 250 ML INJ 250 ML IV SCH (04:00)
[2017-08-04] MEDS ORDERED: PHARMACY ORDERED LAB ONE (03:45)
== END 2017-08-02 17:07 | DRG 640 ==
LOC: NEDAMB 15:09 → UNDOADMOB 22:24 → NEDA 22:24 → NEPHCDU 23:44 → OBSVTOIN 07-24 17:04 → N04B 07-24 23:02
PROVIDERS: ADMIT Internal Medicine; ATTEND Internal Medicine
DX: E43 Unspecified severe protein-calorie malnutrition (principal); L89.513 Pressure ulcer of right ankle, stage 3; L89.152 Pressure ulcer of sacral region, stage 2; J90 Pleural effusion, not elsewhere classified; M32.9 Systemic lupus erythematosus, unspecified; L03.115 Cellulitis of right lower limb; I69.351 Hemiplegia and hemiparesis following cerebral infarction affecting right dominant side; Z68.1 Body mass index [BMI] 19.9 or less, adult; J98.11 Atelectasis; R26.9 Unspecified abnormalities of gait and mobility; M19.90 Unspecified osteoarthritis, unspecified site; F32.9 Major depressive disorder, single episode, unspecified; F41.9 Anxiety disorder, unspecified; E78.00 Pure hypercholesterolemia, unspecified; I10 Essential (primary) hypertension; B19.20 Unspecified viral hepatitis C without hepatic coma; W18.11XA Fall from or off toilet without subsequent striking against object, initial encounter; Z23 Encounter for immunization; E87.6 Hypokalemia; G89.29 Other chronic pain; Z91.81 History of falling; Z87.891 Personal history of nicotine dependence; Z79.01 Long term (current) use of anticoagulants; K29.50 Unspecified chronic gastritis without bleeding; K57.90 Diverticulosis of intestine, part unspecified, without perforation or abscess without bleeding
CPT/HCPCS: 36569; 70450; 71010; 73610; 73723; 74177; 74181; 76377; 76937; 78226; 78807; 78999; 80048; 80053; 80076; 80202; 81001; 82306; 82607; 83605; 83735; 84100; 85007; 85025; 85027; 85652; 86140; 86403; 87040; 87070; 87077; 87086; 87147; 87185; 87186; 87205; 87641; 90471; 90732; 93923; 94150; 96360; 96361; 96372; A9537; A9569; A9579; G0009; G0378; G8987-GP; G8988-GP; J1642; J2543; J3370; J3420; J3480; J7050; Q9963; Q9967

== ENCOUNTER 2017-10-19 01:28 | Emergency (ER) | payer MEDICARE ==
[~2017-10-19] VITALS: Ht 165.1 cm; Wt 39.5 kg
[~2017-10-19 01:28] MED LIST changes: -ALPR0.25 PO; +ALPR2TAB3 PO; -APIX2.5T PO; +APIX5TAB PO; +ARMO30TA PO; +ASCO500T PO; -ASPI-99 PO; +ASPI1TAB56 PO; -BUPR150CR PO; +CALC1TAB87 PO; -CALC500T30 PO; +CARA1TAB6 PO; +CENTCHW4 PO; +CHOL5000 PO; +CITRSOL4 PO; -CLON.1 PO; +COLA100C5 PO; +COLL30T TOPICAL; -COMMODE 3-IN-11 MIS; +DICY10CA12 PO; +DULC10SU3 RECTAL; +ENEMENE5 RECTAL; +FERR325T18 PO; -FERR325T20 PO; +FLUC200T2 PO; -FURO20TA PO; +GENT0.1C TOPICAL; +HYDR-3516 PO; -HYDR-3800 PO; -HYDR-4107 PO; +KLOR20TA3 PO; +KONS100P3 PO; +LACT PO; +LACT1CAP20 PO; +LACTTAB8 PO; +LEVA750T9 PO; -MAGN100T2 PO; +METH500T3 PO; -METO-309 PO; +MORP1TAB25 PO; +MULTTAB67 PO; -NEUR300C PO; +NORC5TAB PO; +NSFLUSH5 IV FLUSH; -OXYB5TAB10 PO; +PARO25CR PO; +PLAV75TA29 PO; -POTA-243 PO; +POTA20TA5 PO; -PRAV40TA PO; -PRED5TAB PO; +PROT40TA PO; +PSYLPOW4 PO; +ROBA500T PO; -SENN1TAB PO; +SIMV20TA PO; +TRAZ1TAB14 PO; -TRAZ50TA12 PO; +TYLE325T PO; +VANC1000P IV; -VITA10002 PO; +WELLTAB39 PO; -WHEEMIS3; +XANA2TAB2 PO; +ZOCO20TA PO; +ZOLO100T PO; -ZOLO50TA PO; -[UNRECOGNIZED DRUG - CODE] IV
[2017-10-19 01:34] VITALS: BP 185/101; PULSE 99; RESP 20; TEMP 98.7; O2SAT 94
[2017-10-19 01:43] VITALS: BP 175/81
[2017-10-19 01:45] VITALS: O2SAT 96
[2017-10-19] MEDS ORDERED: MILKSUS PO (02:04)
[2017-10-19] MEDS ORDERED: NITR1CAP36 PO (02:04)
[2017-10-19] MEDS ORDERED: CITRSOL4 PO (02:04)
[2017-10-19] MEDS ORDERED: CEROTAB PO (02:04)
[2017-10-19] MEDS ORDERED: TYLE325T PO (02:04)
[2017-10-19] MEDS ORDERED: DULC10SU3 RECTAL (02:04)
--- NOTE | 2017-10-19 02:08 | PD ---
HPI Chief Complaint: Abdominal Pain Time Seen by Provider: 01:42 Travel History International Travel<30 days: No Contact w/Intl Traveler<30days: No Traveled to known affect area: No History of Present Illness HPI This is a 52-year-old who has had a history of a stroke and is a [place] resident who presents to the emergency department having reportedly been increasingly confused by correction staff. She reports that she feels like she has pneumonia. She is more short of breath, constant, moderate severity and has a productive cough. She also is reporting abdominal discomfort which is all over her abdomen. PFSH Past Medical History Anemia: Yes Asthma: No Autoimmune Disease: Yes (LUPUS) Blood Disorders: No Anxiety: Yes Depression: Yes Heart Rhythm Problems: No Cancer: No Cardiovascular Problems: Yes High Cholesterol: Yes Chemotherapy: No Chest Pain: No Congestive Heart Failure: No COPD: Yes Cerebrovascular Accident: Yes Diabetes: No Diminished Hearing: No Endocrine: No Fibromyalgia: Yes Gastrointestinal Disorders: Yes (colitis) GERD: Yes Genitourinary: Yes (pt currently has williamson) Hiatal Hernia: Yes Hypertension: Yes Immune Disorder: No Musculoskeletal: Yes (lossing muscle throughtout body) Neurologic: Yes (Hemiparesis/hemiplegia to right side/ lupus/ porphyria) Psychiatric: Yes Reproductive: No Respiratory: Yes Integumentary: Yes (Pressure ulcers to R elbow, R ankle, and sacral region) Radiation Therapy: No Sickle Cell Disease: No Sleep Apnea: No Thyroid Disease: No ?: Not Menopausal: Yes Past Surgical History Abdominal Surgery: Yes (hiatal hernia repair) AICD: No Arteriovenous Shunt: No Body Medical Devices: r shoulder has titanium Section: Yes Gynecologic Surgery: Yes (csection, hysterectomy) Hysterectomy: Yes Insulin Pump: No Joint Replacement: No Pacemaker: No Other Surgery: Yes (Fibroid cyst removed) Social History Alcohol Use: No Tobacco Use: No Substance Use: No Allergies-Medications (Allergen,Severity, Reaction): Coded Allergies: No Known Allergies (Verified Allergy, Unknown, 10/08/17) Reported Meds & Prescriptions Reported Meds & Active Scripts Active Fluconazole 200 Mg Tab 200 Mg PO DAILY Paxil CR (Paroxetine HCl) 25 Mg Tab 25 Mg PO DAILY Xanax (Alprazolam) 2 Mg Tab 2 Mg PO Q8H PRN 7 Days [place] (Hydrocodone-Acetaminophen) 5 Mg-325 Mg Tab 1 Tab PO Q6H PRN 7 Days Morphine ER (Morphine Sulfate) 30 Mg Tab 30 Mg PO Q8H 7 Days Reported [place] Thyroid (Thyroid) 30 Mg Tab 30 Mg PO DAILY Aplisol (Tuberculin Ppd) 5 Tub. Unit/0.1 Ml Inj 0.1 Ml ID DAILY Nitrofurantoin Macrocrystal 100 Mg Cap 100 Mg PO QID Milk of Magnshanta Liq (Magnesium Hydroxide) 400 Mg/5 Ml Susp 30 Ml PO ONCE Dulcolax Supp (Bisacodyl) 10 Mg Supp 10 Mg RECTAL PRN PRN Citroma Liq (Magnesium Citrate) 300 Ml Liq 296 Ml PO DIRECTED Cerovite Advanced Formula (Multiple Vitamins W/ Minerals) 18 Mg Iron-400 Mcg Tab PO DAILY Tylenol (Acetaminophen) 325 Mg Tab 650 Mg PO Q4H PRN Tylenol (Acetaminophen) 325 Mg Tab 325 Mg PO Q4H PRN Gentamicin Topical 0.1% Cream 1 Applic TOPICAL DAILY Apply to affected area(s) Lactobacillus Acidophilus 1 Billion Cell Tab 1 Tab PO TID Lisinopril 20 Mg Tab 20 Mg PO BID Klor-Con M20 (Potassium Chloride Microencaps) 20 Meq Tab 20 Meq PO Q12HR Dicyclomine (Dicyclomine HCl) 10 Mg Cap 10 Mg PO BID PRN Colace (Docusate Sodium) 100 Mg Capsule 1 Tab PO BID PRN Ascorbic Acid 500 Mg Tab 500 Mg PO BID Zocor (Simvastatin) 20 Mg Tab 20 Mg PO DAILY Trazodone (Trazodone HCl) 150 Mg Tablet 150 Mg PO HS Protonix (Pantoprazole Sodium) 40 Mg Tab 40 Mg PO DAILY Norvasc (Amlodipine Besylate) 10 Mg Tab 10 Mg PO DAILY Multiple Vitamin 1 Tab 1 Tab PO DAILY Ferrous Sulfate 325 Mg (65 Mg Iron) Tablet 325 Mg PO DAILY Calcium 600 with Vitamin D (Calcium Carbonate-Cholecalciferol) 600-400 mg-Unit Tab 1 Tab PO DAILY Review of Systems ROS Limitations: Poor Historian Physical Exam Narrative GENERAL: Frail SKIN: Pale, dry with skin tenting HEAD: Atraumatic. Normocephalic. EYES: Pupils equal and round. No injection or drainage. ENT: Dry mucous membranes NECK: Trachea midline. CARDIOVASCULAR: Regular rate and rhythm. No murmur appreciated. RESPIRATORY: Coarse wet sounding with some wheezing in the upper lung story GASTROINTESTINAL: Abdomen soft, diffusely tender with no rebound or guarding. MUSCULOSKELETAL: No obvious deformities. NEUROLOGICAL: Awake and alert. Answering questions appropriately. PSYCHIATRIC: Appropriate mood and affect; insight and judgment normal. Data Data Last Documented VS Vital Signs Date Time Temp Pulse Resp B/P (MAP) Pulse Ox O2 Delivery O2 Flow Rate FiO2 10/19/17 01:45 96 Nasal Cannula 2.00 10/19/17 01:43 175/81 (112) 10/19/17 01:34 98.7 99 20 Orders Orders Sepsis Workup Initiated (10/19/17 ) Complete Blood Count With Diff (10/19/17 01:42) Comprehensive Metabolic Panel (10/19/17 01:42) Lactic Acid Sepsis Protocol (10/19/17 01:42) Lipase (10/19/17 01:42) Troponin I (10/19/17 01:42) Urinalysis - C+S If Indicated (10/19/17 01:42) Blood Culture (10/19/17 01:42) Chest, Single Ap (10/19/17 01:42) Blood Glucose (10/19/17 01:42) Ecg Monitoring (10/19/17 01:42) Iv Access Insert/Monitor (10/19/17 01:42) Oximetry (10/19/17 01:42) Oxygen Administration (10/19/17 01:42) Urine Culture (10/19/17 01:55) Ceftriaxone Inj (Rocephin Inj) (10/19/17 02:45) Urinary Catheter Insert/Apply (10/19/17 02:38) Ct Abd/Pel W Iv Contrast(Rout) (10/19/17 ) Iohexol 350 Inj (Omnipaque 350 Inj) (10/19/17 04:01) Acetamin-Hydrocod 325-5 Mg ([place] 5-325 (10/19/17 04:45) Labs Laboratory Tests Test 10/19/17 01:55 White Blood Count 6.3 TH/MM3 Red Blood Count 5.13 MIL/MM3 Hemoglobin 13.0 GM/DL Hematocrit 40.6 % Mean Corpuscular Volume 79.0 FL Mean Corpuscular Hemoglobin 25.3 PG Mean Corpuscular Hemoglobin Concent 32.1 % Red Cell Distribution Width 17.5 % Platelet Count 283 TH/MM3 Mean Platelet Volume 7.6 FL Neutrophils (%) (Auto) 79.5 % Lymphocytes (%) (Auto) 16.5 % Monocytes (%) (Auto) 2.6 % Eosinophils (%) (Auto) 0.4 % Basophils (%) (Auto) 1.0 % Neutrophils # (Auto) 5.0 TH/MM3 Lymphocytes # (Auto) 1.0 TH/MM3 Monocytes # (Auto) 0.2 TH/MM3 Eosinophils # (Auto) 0.0 TH/MM3 Basophils # (Auto) 0.1 TH/MM3 CBC Comment DIFF FINAL Differential Comment Urine Color DARK-YELLOW Urine Turbidity HAZY Urine pH 5.5 Urine Specific [place] 1.022 Urine Protein 100 mg/dL Urine Glucose (UA) NEG mg/dL Urine Ketones NEG mg/dL Urine Occult Blood MOD Urine Nitrite NEG Urine Bilirubin NEG Urine Urobilinogen 2.0 MG/DL Urine Leukocyte Esterase MOD Urine RBC 60 /hpf Urine WBC 58 /hpf Urine Squamous Epithelial Cells <1 /hpf Urine Renal Epithelial Cells 1 /hpf Urine Amorphous Sediment RARE Urine Bacteria RARE /hpf Urine Hyaline Casts 4 /lpf Urine Mucus FEW /lpf Microscopic Urinalysis Comment CATH-CULTURE IND Blood Urea Nitrogen 24 MG/DL Creatinine 0.62 MG/DL Random Glucose 137 MG/DL Total Protein 8.6 GM/DL Albumin 2.6 GM/DL Calcium Level 9.5 MG/DL Alkaline Phosphatase 147 U/L Aspartate Amino Transf (AST/SGOT) 28 U/L Alanine Aminotransferase (ALT/SGPT) 18 U/L Total Bilirubin 0.5 MG/DL Sodium Level 134 MEQ/L Potassium Level 5.0 MEQ/L Chloride Level 100 MEQ/L Carbon Dioxide Level 28.9 MEQ/L Anion Gap 5 MEQ/L Estimat Glomerular Filtration Rate 100 ML/MIN Lactic Acid Level 1.0 mmol/L Troponin I 0.02 NG/ML Lipase 53 U/L [facility] Medical Decision Making Medical Screen Exam Complete: Yes Emergency Medical Condition: Yes Interpretation(s) Afebrile, mild tachycardia, 96% on home oxygen No leukocytosis Electrolytes are reassuring Troponin is normal Lactic acid is 1 Urinalysis demonstrates pyuria and some red blood cells Last 24 hours Impressions Chest X-Ray 10/19/17 0142 Signed Impressions: Service Date/Time: Thursday, October 19, 2017 02:08 - CONCLUSION: No acute cardiopulmonary disease. Andrew Phipps MD Abdomen/Pelvis CT 10/19/17 0000 Signed Impressions: Service Date/Time: Thursday, October 19, 2017 04:01 - CONCLUSION: 1. Left lung base consolidation and a tiny left pleural effusion. 2. Dilated common bile duct and etiology is not evident. 3. Probable left adrenal adenomas. Andrew Phipps MD Differential Diagnosis Urinary tract infection, pneumonia, appendicitis, colitis, bowel obstruction Narrative Course This is a 52-year-old female who presents to the emergency department having been more confused per her correction. She is oriented and appropriate on my exam. She does have a urinary tract infection but has an indwelling catheter. Her catheter was changed. Labs are reassuring. CT abdomen and pelvis demonstrates a left lower lobe infiltrate which is consistent with the patient' s symptoms and complaints of increasing shortness of breath. She has no new oxygen requirement and is otherwise non-toxic appearing. I think she is appropriate for outpatient therapy. Patient will be changed for Macrobid to omnicef and azithromycin. Diagnosis Primary Impression: Pneumonia Qualified Codes: J18.1 - Lobar pneumonia, unspecified organism Additional Impression: Urinary tract infection Qualified Codes: T83.511A - Infection and inflammatory reaction due to indwelling urethral catheter, initial encounter; N39.0 - Urinary tract infection , site not specified Patient Instructions: General Instructions Additional Instructions: If you develop severe chest pain, shortness of breath, sweating, lightheadedness , dizziness or difficulty breathing return to the emergency department immediately. Stop taking macrobid. Start taking omnicef and azithromycin. Med/Other Pt SpecificInfo: Prescription(s) given Scripts Azithromycin (Azithromycin) 250 Mg Tab 250 MG PO DIRECTED for Infection, #6 TAB 0 Refills Take 2 tabs (500 mg) on day 1 then 1 tab daily x 4 days. Prov: Evangelina Ram MD 10/19/17 Cefdinir (Cefdinir) 300 Mg Cap 300 MG PO BID for Infection for 10 Days, #20 CAP 0 Refills Prov: Evangelina Ram MD 10/19/17 Disposition: 01 DISCHARGE HOME Condition: Stable Evangelina Ram MD Oct 19, 2017 02:08
[2017-10-19 02:13] LABS: BASOPHIL # 0.1 TH/MM3 (0-0.2); EOSINOPHIL % 0.4 % (0.0-4.0); HEMATOCRIT 40.6 % (35.0-46.0); LYMPH % 16.5 % (9.0-44.0); MEAN CORPUSCULAR HEMOGLOBIN 25.3 PG (27.0-34.0); MEAN CORPUSCULAR HGB CONC 32.1 % (32.0-36.0); MEAN PLATELET VOLUME 7.6 FL (7.0-11.0); MONO % 2.6 % (0.0-8.0); MONOCYTE # 0.2 TH/MM3 (0-0.9); NEUT % 79.5 % (16.0-70.0); PLATELET COUNT 283 TH/MM3 (150-450); RED BLOOD COUNT 5.13 MIL/MM3 (4.00-5.30); RED CELL DISTRIBUTION WIDTH 17.5 % (11.6-17.2); WHITE BLOOD COUNT 6.3 TH/MM3 (4.0-11.0)
[2017-10-19 02:17] LABS: AMORPHOUS SEDIMENT, URINE RARE; BACTERIA, URINE RARE /hpf; BILIRUBIN, URINE NEG (NEG); BLOOD, URINE MOD (NEG); GLUCOSE,URINE NEG (NEG); HYALINE CAST, URINE 4 /lpf (RARE); KETONE, URINE NEG (NEG); MUCUS URINE FEW /lpf (OCC); NITRITE,URINE NEG (NEG); PH, URINE 5.5 (5.0-8.5); RENAL EPITHELIAL CELLS 1 /hpf; SQUAMOUS EPITHELIAL CELL URINE <1 /hpf (0-5); URINE COLOR DARK-YELLOW (YELLW/STRAW); URINE LEUKOCYTE ESTERASE MOD (NEG)
--- NOTE | 2017-10-19 02:19 | RADRPT ---
EXAM DATE/TIME: 10/19/2017 02:08 [facility] COMPARISON: No previous studies available for comparison. INDICATIONS : Abdominal pain per history. MEDICAL HISTORY : Unknown SURGICAL HISTORY : Unknown ENCOUNTER: Initial ACUITY: 1 day PAIN SCORE: Non-responsive. LOCATION: Bilateral chest FINDINGS: The lungs are clear without infiltrate, nodule, or mass. There is no appreciable pleural effusion fo r technique. Heart and mediastinum are unremarkable. CONCLUSION: No acute cardiopulmonary disease. Andrew Phipps MD on October 19, 2017 at 2:17 Board Certified Radiologist. This report was verified electronically.
[2017-10-19 02:33] LABS: ALKALINE PHOSPHATASE 147 U/L (45-117); TOTAL BILIRUBIN ADULT 0.5 MG/DL (0.2-1.0); TOTAL PROTEIN 8.6 GM/DL (6.4-8.2); TROPONIN I 0.02 NG/ML (0.02-0.05)
[2017-10-19 02:34] LABS: ALBUMIN 2.6 GM/DL (3.4-5.0); ALT (GPT) 18 U/L (10-53); AST (GOT) 28 U/L (15-37); BICARBONATE 28.9 MEQ/L (21.0-32.0); BLOOD UREA NITROGEN 24 MG/DL (7-18); CALCIUM 9.5 MG/DL (8.5-10.1); CHLORIDE 100 MEQ/L (98-107); CREATININE 0.62 MG/DL (0.50-1.00); GLOMERULAR FILTRATION RATE 100 ML/MIN (>89); GLUCOSE,RANDOM 137 MG/DL (74-106); LIPASE 53 U/L (73-393); SODIUM (NA) 134 MEQ/L (136-145)
[2017-10-19] MEDS ORDERED: cefTRIAXone INJ 1,000 MG in SODIUM CHLORIDE 0.9% INJ 100 ML IV ONE (02:45)
[2017-10-19] MEDS ORDERED: IOHEXOL 350 MG/ML 10 ML VIAL (for RAD DIAG) IVCONTRAST ONE (04:01)
[2017-10-19] MEDS ORDERED: APLI5INJ2 ID (04:37)
[2017-10-19] MEDS ORDERED: ARMO30TA PO (04:37)
--- NOTE | 2017-10-19 04:42 | RADRPT ---
EXAM DATE/TIME: 10/19/2017 04:01 [facility] COMPARISON: CHEST SINGLE AP, October 19, 2017, 2:08. INDICATIONS : Diffuse abdominal discomfort. IV CONTRAST: 75 cc Omnipaque 350 (iohexol) IV ORAL CONTRAST: No oral contrast ingested. RADIATION DOSE: 7.21 CTDIvol (mGy) MEDICAL HISTORY : Cardiovascular disease. Gastroesophageal reflux disease. Chronic obstructive pu lmonary disease.Hypertension. Lupus. Colitis. SURGICAL HISTORY : Hysterectomy. section. ENCOUNTER: Initial ACUITY: 1 day PAIN SCALE: 4/10 LOCATION: Bilateral abdomen TECHNIQUE: Volumetric scanning of the abdomen and pelvis was performed. Using automated exposure control and adjustment of the mA and/or kV according to patient size, radiation dose was kept as low as reasonably achievable to obtain optimal diagnostic quality images. DICOM format image data is av ailable electronically for review and comparison. FINDINGS: CT Abdomen: The common bile duct is dilated measures 1.1 cm in size and the etiology is not certain. There are 2 tiny nodules in the left adrenal gland the larger one measures 1.4 cm in size probably ad enomas. The liver, spleen, pancreas, kidneys, right adrenal are unremarkable. There is no evidence fo r any appreciable pathological adenopathy, free fluid, or bowel obstruction. Left lung base consolid ation is present with a small left pleural effusion difficult to visualize on the patient's chest x-r ay due to technique. Chronic vascular calcifications are present involving the aorta, iliac arteries without any significant stenosis or aneurysmal dilatations for technique. CT pelvis: There is no evidence for mass, abscess formation, or any significant adenopathy within the pelvis. CONCLUSION: 1. Left lung base consolidation and a tiny left pleural effusion. 2. Dilated common bile duct and etiology is not evident. 3. Probable left adrenal adenomas. Andrew Phipps MD on October 19, 2017 at 4:35 Board Certified Radiologist. This report was verified electronically.
[2017-10-19] MEDS: ACETAMINOPHEN/HYDROcodone 325 MG/5 MG TAB PO ONE ×2 (04:45→04:50)
[2017-10-19] MEDS ORDERED: AZIT250T3 PO (04:58)
[2017-10-19] MEDS ORDERED: CEFD300C PO (04:58)
[2017-10-19 07:20] VITALS: BP 159/72; PULSE 91; RESP 16; O2SAT 97
== END 2017-10-19 10:30 | disposition home or self-care (01) ==
LOC: MERGE 01:28 → NEPC 01:28
DX: J18.1 Lobar pneumonia, unspecified organism (principal); T83.511A Infection and inflammatory reaction due to indwelling urethral catheter, initial encounter; N39.0 Urinary tract infection, site not specified; B96.20 Unspecified Escherichia coli [E. coli] as the cause of diseases classified elsewhere; B37.89 Other sites of candidiasis; R06.02 Shortness of breath
CPT/HCPCS: 71010; 74177; 80053; 81001; 83605; 83690; 84484; 85025; 87040; 87077; 87086; 87106; 87186; 87205; 96365; 99285; J0696; Q9967

== ENCOUNTER 2017-10-19 18:51 | Inpatient (IN) | payer MEDICARE ==
[2017-10-19] VITALS (13 sets, daily range): BP systolic 84–136; BP diastolic 58–83; PULSE 91–111; RESP 14–16; TEMP 94.9; O2SAT 99–100
[~2017-10-19 18:51] MED LIST changes: +APLI5INJ2 ID; +AZIT250T3 PO; +CEFD300C PO; +CEROTAB PO; +MILKSUS PO; +NITR1CAP36 PO
[2017-10-19 19:21] LABS: AUTOMATED NEUTROPHIL # 7.7 TH/MM3 (1.8-7.7); BASOPHIL % 0.3 % (0.0-2.0); EOSINOPHIL % 0.1 % (0.0-4.0); HEMATOCRIT 36.8 % (35.0-46.0); HEMOGLOBIN 10.9 GM/DL (11.6-15.3); LYMPH % 31.7 % (9.0-44.0); LYMPHOCYTE # 3.7 TH/MM3 (1.0-4.8); MEAN CELL VOLUME 84.9 FL (80.0-100.0); MEAN CORPUSCULAR HEMOGLOBIN 25.2 PG (27.0-34.0); MEAN PLATELET VOLUME 7.8 FL (7.0-11.0); MONO % 1.9 % (0.0-8.0); MONOCYTE # 0.2 TH/MM3 (0-0.9); PLATELET COUNT 242 TH/MM3 (150-450); RED BLOOD COUNT 4.34 MIL/MM3 (4.00-5.30); RED CELL DISTRIBUTION WIDTH 17.9 % (11.6-17.2); WHITE BLOOD COUNT 11.7 TH/MM3 (4.0-11.0)
[2017-10-19 19:27] LABS: MEAN CORPUSCULAR HGB CONC 29.7 % (32.0-36.0)
[2017-10-19 19:34] LABS: INTERNATIONAL NORMALIZED RATIO 1.2 RATIO
[2017-10-19] MEDS ORDERED: SODIUM CHLOR 0.9% 1000 ML INJ 1,000 ML IV SCH ×2 (19:45)
[2017-10-19 19:47] LABS: OVALOCYTES 1+ (NORMAL)
[2017-10-19] MEDS: NOREPINEPHRINE INJ 4 MG in SODIUM CHLOR 0.9% 250 ML INJ 246 ML IV PRN ×2 (19:51→23:16)
[2017-10-19 19:59] LABS: ALBUMIN 1.7 GM/DL (3.4-5.0); ALKALINE PHOSPHATASE 117 U/L (45-117); ALT (GPT) 291 U/L (10-53); AST (GOT) 687 U/L (15-37); BICARBONATE 20.6 MEQ/L (21.0-32.0); BLOOD UREA NITROGEN 25 MG/DL (7-18); CALCIUM 8.8 MG/DL (8.5-10.1); CHLORIDE 101 MEQ/L (98-107); CREATININE 0.92 MG/DL (0.50-1.00); GLOMERULAR FILTRATION RATE 64 ML/MIN (>89); GLUCOSE,RANDOM 229 MG/DL (74-106); SODIUM (NA) 136 MEQ/L (136-145); TOTAL BILIRUBIN ADULT 0.4 MG/DL (0.2-1.0); TOTAL PROTEIN 6.1 GM/DL (6.4-8.2)
[2017-10-19] MEDS ORDERED: HYDROmorphone HCL PF 2 MG/ML VIAL IV PUSH PRN (20:00)
--- NOTE | 2017-10-19 20:17 | RADRPT ---
EXAM DATE/TIME: 10/19/2017 19:38 [place] COMPARISON: CHEST SINGLE AP, October 19, 2017, 2:08. INDICATIONS : Post code. Post intubation. MEDICAL HISTORY : Cardiovascular disease. Gastroesophageal reflux disease. Chronic obstructive pulmonary disease.Hypert ension. Lupus. Colitis. SURGICAL HISTORY : Hysterectomy. section. ENCOUNTER: Initial ACUITY: 1 day PAIN SCORE: Non-responsive. LOCATION: Bilateral chest FINDINGS: Single AP view of the chest. Endotracheal tube is in place with the tip 2 cm above the bishnu. Nasoga stric tube is in place with the tip below the [id number] of the radiograph. Mild chronic cardiac s ilhouette enlargement. Moderate sized area of left lower lobe consolidation versus atelectasis and mi ld bilateral perihilar opacity. CONCLUSION: 1. Endotracheal tube and nasogastric tube in place. 2. Moderate sized area of left lower lobe consolidation versus atelectasis. 3. Mild bilateral perihilar opacity suggesting pulmonary vascular congestion. Brian Su MD on October 19, 2017 at 20:13 Board Certified Radiologist. This report was verified electronically.
--- NOTE | 2017-10-19 20:28 | PD ---
HPI Chief Complaint: Code Blue Time Seen by Provider: 19:25 Travel History International Travel<30 days: No Contact w/Intl Traveler<30days: No Traveled to known affect area: No History of Present Illness HPI This is a 52 year old female who has a history of a stroke who has been a [facility] for 3 months who presents this evening having had a cardiac arrest. The patient was found in her bed unresponsive. She had last been seen 20 minutes prior. EMS reports that they suctioned a large amount of secretions and vomitus from her airway. She was intubated and CPR was initiated. She was asystolic initially. She regained pulses with 2 rounds of epinephrine and was transported here. Pt's reports that she has been ill for a while. He saw her earlier this week and at that time she had been reporting some chest pain. He says that she's been declining ever since she went into her [facility] and she's developed bedsores and has lost a significant amount of weight. PFSH Past Medical History Anemia: Yes Asthma: No Autoimmune Disease: Yes (LUPUS) Blood Disorders: No Anxiety: Yes Depression: Yes Heart Rhythm Problems: No Cancer: No Cardiovascular Problems: Yes High Cholesterol: Yes Chemotherapy: No Chest Pain: No Congestive Heart Failure: No COPD: Yes Cerebrovascular Accident: Yes Diabetes: No Diminished Hearing: No Endocrine: No Fibromyalgia: Yes Gastrointestinal Disorders: Yes (colitis) GERD: Yes Genitourinary: Yes (pt currently has williamson) Hiatal Hernia: Yes Hypertension: Yes Immune Disorder: No Implanted Vascular Access Dvce: Yes Musculoskeletal: Yes (lossing muscle throughtout body) Neurologic: Yes (Hemiparesis/hemiplegia to right side/ lupus/ porphyria) Psychiatric: Yes Reproductive: No Respiratory: Yes Integumentary: Yes (Pressure ulcers to R elbow, R ankle, and sacral region) Radiation Therapy: No Sickle Cell Disease: No Sleep Apnea: No Thyroid Disease: No Tetanus Vaccination: Unknown Influenza Vaccination: No ?: Not Menopausal: Yes Past Surgical History Abdominal Surgery: Yes (hiatal hernia repair) AICD: No Arteriovenous Shunt: No Body Medical Devices: r shoulder has titanium Section: Yes Gynecologic Surgery: Yes (csection, hysterectomy) Hysterectomy: Yes Insulin Pump: No Joint Replacement: No Pacemaker: No Other Surgery: Yes (Fibroid cyst removed, hysterocomy, hernia, c-s, ) Social History Alcohol Use: No Tobacco Use: No Substance Use: No Allergies-Medications (Allergen,Severity, Reaction): Coded Allergies: No Known Allergies (Verified Allergy, Unknown, 10/08/17) Reported Meds & Prescriptions Reported Meds & Active Scripts Active Azithromycin 250 Mg Tab 250 Mg PO DIRECTED Take 2 tabs (500 mg) on day 1 then 1 tab daily x 4 days. Cefdinir 300 Mg Cap 300 Mg PO BID 10 Days Fluconazole 200 Mg Tab 200 Mg PO DAILY Paxil CR (Paroxetine HCl) 25 Mg Tab 25 Mg PO DAILY Xanax (Alprazolam) 2 Mg Tab 2 Mg PO Q8H PRN 7 Days [place] (Hydrocodone-Acetaminophen) 5 Mg-325 Mg Tab 1 Tab PO Q6H PRN 7 Days Morphine ER (Morphine Sulfate) 30 Mg Tab 30 Mg PO Q8H 7 Days Reported [place] Thyroid (Thyroid) 30 Mg Tab 30 Mg PO DAILY Aplisol (Tuberculin Ppd) 5 Tub. Unit/0.1 Ml Inj 0.1 Ml ID DAILY Nitrofurantoin Macrocrystal 100 Mg Cap 100 Mg PO QID Milk of Magnesia Liq (Magnesium Hydroxide) 400 Mg/5 Ml Susp 30 Ml PO ONCE Dulcolax Supp (Bisacodyl) 10 Mg Supp 10 Mg RECTAL PRN PRN Citroma Liq (Magnesium Citrate) 300 Ml Liq 296 Ml PO DIRECTED Cerovite Advanced Formula (Multiple Vitamins W/ Minerals) 18 Mg Iron-400 Mcg Tab PO DAILY Tylenol (Acetaminophen) 325 Mg Tab 650 Mg PO Q4H PRN Tylenol (Acetaminophen) 325 Mg Tab 325 Mg PO Q4H PRN Gentamicin Topical 0.1% Cream 1 Applic TOPICAL DAILY Apply to affected area(s) Lactobacillus Acidophilus 1 Billion Cell Tab 1 Tab PO TID Lisinopril 20 Mg Tab 20 Mg PO BID Klor-Con M20 (Potassium Chloride Microencaps) 20 Meq Tab 20 Meq PO Q12HR Dicyclomine (Dicyclomine HCl) 10 Mg Cap 10 Mg PO BID PRN Colace (Docusate Sodium) 100 Mg Capsule 1 Tab PO BID PRN Ascorbic Acid 500 Mg Tab 500 Mg PO BID Zocor (Simvastatin) 20 Mg Tab 20 Mg PO DAILY Trazodone (Trazodone HCl) 150 Mg Tablet 150 Mg PO HS Protonix (Pantoprazole Sodium) 40 Mg Tab 40 Mg PO DAILY Norvasc (Amlodipine Besylate) 10 Mg Tab 10 Mg PO DAILY Multiple Vitamin 1 Tab 1 Tab PO DAILY Ferrous Sulfate 325 Mg (65 Mg Iron) Tablet 325 Mg PO DAILY Calcium 600 with Vitamin D (Calcium Carbonate-Cholecalciferol) 600-400 mg-Unit Tab 1 Tab PO DAILY Review of Systems ROS Limitations: Unresponsive Physical Exam Narrative GENERAL: Frail, chronically ill-appearing SKIN: Dry with skin tenting HEAD: Atraumatic. Normocephalic. EYES: Pupils equal and round. No injection or drainage. ENT: Moist mucous membranes NECK: Trachea midline. CARDIOVASCULAR: Regular rate and rhythm. No murmur appreciated. RESPIRATORY: Coarse breath sounds bilaterally GASTROINTESTINAL: Abdomen soft, non-tender, nondistended. MUSCULOSKELETAL: No obvious deformities. NEUROLOGICAL: Pupils are fixed and dilated, GCS 3T, no movements Data Data Last Documented VS Vital Signs Date Time Temp Pulse Resp B/P (MAP) Pulse Ox O2 Delivery O2 Flow Rate FiO2 10/19/17 20:48 97 14 130/68 (88) 100 Ventilator 100 Orders Orders Complete Blood Count With Diff (10/19/17 19:05) Comprehensive Metabolic Panel (10/19/17 19:05) Prothrombin Time / Inr (Pt) (10/19/17 19:05) Chest, Single Ap (10/19/17 ) Sodium Chlor 0.9% 1000 Ml Inj (Ns 1000 M (10/19/17 19:45) Sodium Chlor 0.9% 1000 Ml Inj (Ns 1000 M (10/19/17 19:45) Norepinephrine Inj (Levophed Inj) (10/19/17 19:45) Code Status (10/19/17 20:00) Ed Comfort Care (10/19/17 20:00) NPO (10/19/17 20:00) Hydromorphone Pf Inj (Dilaudid Pf Inj) (10/19/17 20:00) Arterial Blood Gas (Abg) (10/19/17 19:30) Cefepime Inj (Maxipime Inj) (10/19/17 20:45) Lactic Acid (10/19/17 20:34) Ct Brain W/O Iv Contrast(Rout) (10/19/17 ) Admit Order (Ed Use Only) (10/19/17 20:55) Cbc No Diff, Includes Plts (10/20/17 05:00) Cbc No Diff, Includes Plts (10/21/17 05:00) Cbc No Diff, Includes Plts (10/22/17 05:00) Cbc No Diff, Includes Plts (10/23/17 05:00) Cbc No Diff, Includes Plts (10/24/17 05:00) Cbc No Diff, Includes Plts (10/25/17 05:00) Cbc No Diff, Includes Plts (10/26/17 05:00) Basic Metabolic Panel (Bmp) (10/20/17 05:00) Basic Metabolic Panel (Bmp) (10/21/17 05:00) Basic Metabolic Panel (Bmp) (10/22/17 05:00) Basic Metabolic Panel (Bmp) (10/23/17 05:00) Basic Metabolic Panel (Bmp) (10/24/17 05:00) Basic Metabolic Panel (Bmp) (10/25/17 05:00) Basic Metabolic Panel (Bmp) (10/26/17 05:00) Restraints Non-Violent CHARLES.Q3H (10/19/17 20:54) Inpatient Certification (10/19/17 20:54) Chlorhexidine 0.12% Liq (Peridex 0.12% L (10/20/17 08:00) Resp Ventilation- Volume (10/19/17 ) Ventilator Weaning Readiness CHARLES.DAILY@0800 (10/19/17 20:54) Elevate Head Of Bed (10/19/17 20:54) Neuro Checks CHARLES.Q1H (10/19/17 20:54) Albuterol-Ipratropium Neb (Duoneb Neb) (10/19/17 22:00) Albuterol-Ipratropium Neb (Duoneb Neb) (10/19/17 21:00) Urinary Catheter Management CHARLES.Q1H (10/19/17 20:54) Vital Signs (Adult) CHARLES.Q1H (10/19/17 20:54) Activity Bed Rest (10/19/17 20:54) Elevate Head Of Bed (10/19/17 20:54) ^ Orogastric Tube (10/19/17 20:54) Diet Npo (10/20/17 Breakfast) Sodium Chlor 0.9% 1000 Ml Inj (Ns 1000 M (10/19/17 20:54) Famotidine Inj (Pepcid Inj) (10/19/17 21:00) Ondansetron Inj (Zofran Inj) (10/19/17 21:00) Inner Diameter Grinder Tool / Telemetry CHARLES.Q8H (10/19/17 20:54) Heparin Inj (Heparin Inj) (10/19/17 21:00) Scd Bilateral/Knee High CHARLES.BID (10/19/17 20:54) ^ Initiate Protocol (10/19/17 20:54) Instruction (10/19/17 20:54) Misc Nursing Information (10/19/17 21:00) Chlorhexidine 2% Cloth (Chlorhexidine 2% (10/20/17 04:00) Chlorhexidine 2% Cloth (Chlorhexidine 2% (10/19/17 21:00) Mrsa Pcr Surveillance (10/19/17 20:54) Docusate Sodium-Senna (Eloisa-Colace) (10/19/17 21:00) Magnesium Hydroxide Liq (Milk Of Magnesi (10/19/17 21:00) Coag Profile (10/20/17 05:00) Coag Profile (10/21/17 05:00) Coag Profile (10/22/17 05:00) Coag Profile (10/23/17 05:00) Coag Profile (10/24/17 05:00) Hepatic Functional Panel (10/20/17 05:00) Hepatic Functional Panel (10/21/17 05:00) Hepatic Functional Panel (10/22/17 05:00) Hepatic Functional Panel (10/23/17 05:00) Hepatic Functional Panel (10/24/17 05:00) Cefepime Inj (Maxipime Inj) (10/20/17 05:00) Metronidazole 500 Mg Inj (Flagyl 500 Mg (10/19/17 21:00) Vancomycin Consult Pharmacy (Vancomycin (10/19/17 21:00) Lactic Acid Sepsis Protocol (10/19/17 20:54) Lactic Acid (10/20/17 05:00) Labs Laboratory Tests Test 10/19/17 18:55 10/19/17 19:30 10/19/17 20:45 White Blood Count 11.7 TH/MM3 Red Blood Count 4.34 MIL/MM3 Hemoglobin 10.9 GM/DL Hematocrit 36.8 % Mean Corpuscular Volume 84.9 FL Mean Corpuscular Hemoglobin 25.2 PG Mean Corpuscular Hemoglobin Concent 29.7 % Red Cell Distribution Width 17.9 % Platelet Count 242 TH/MM3 Mean Platelet Volume 7.8 FL Neutrophils (%) (Auto) 66.0 % Lymphocytes (%) (Auto) 31.7 % Monocytes (%) (Auto) 1.9 % Eosinophils (%) (Auto) 0.1 % Basophils (%) (Auto) 0.3 % Neutrophils # (Auto) 7.7 TH/MM3 Lymphocytes # (Auto) 3.7 TH/MM3 Monocytes # (Auto) 0.2 TH/MM3 Eosinophils # (Auto) 0.0 TH/MM3 Basophils # (Auto) 0.0 TH/MM3 CBC Comment AUTO DIFF Differential Comment AUTO DIFF CONFIRMED Platelet Estimate NORMAL Platelet Morphology Comment NORMAL Ovalocytes 1+ Prothrombin Time 12.0 SEC Prothromb Time International Ratio 1.2 RATIO Blood Urea Nitrogen 25 MG/DL Creatinine 0.92 MG/DL Random Glucose 229 MG/DL Total Protein 6.1 GM/DL Albumin 1.7 GM/DL Calcium Level 8.8 MG/DL Alkaline Phosphatase 117 U/L Aspartate Amino Transf (AST/SGOT) 687 U/L Alanine Aminotransferase (ALT/SGPT) 291 U/L Total Bilirubin 0.4 MG/DL Sodium Level 136 MEQ/L Potassium Level 6.1 MEQ/L Chloride Level 101 MEQ/L Carbon Dioxide Level 20.6 MEQ/L Anion Gap 14 MEQ/L Estimat Glomerular Filtration Rate 64 ML/MIN Blood Gas Puncture Site LT FEMORAL Blood Gas Patient Temperature 98.6 Blood Gas HCO3 16 mmol/L Blood Gas Base Excess -14.5 mmol/L Blood Gas Oxygen Saturation 98 % Arterial Blood pH 6.94 Arterial Blood Partial Pressure CO2 79 mmHg Arterial Blood Partial Pressure O2 285 mmHG Arterial Blood Oxygen Content 12.7 Vol % Arterial Blood Carboxyhemoglobin 0.2 % Arterial Blood Methemoglobin 0.6 % Blood Gas Hemoglobin 8.7 G/DL Oxygen Delivery Device VENTILATOR Blood Gas Ventilator Setting Blood Gas Inspired Oxygen 100 % Lactic Acid Level 7.1 mmol/L [facility] Medical Decision Making Medical Screen Exam Complete: Yes Emergency Medical Condition: Yes Interpretation(s) Mild leukocytosis Transaminitis Hyperkalemia Chest x-ray demonstrates left lower lobe consolidation and perihilar opacity possibly pulmonary vascular congestion Differential Diagnosis Aspiration pneumonia, polypharmacy, bacterial pneumonia, urinary tract infection , sepsis, seizure, stroke Narrative Course This is a 52-year-old female who presents to the emergency department having been [facility] I saw her this morning and diagnosed her with pneumonia. She had a normal oxygen saturation and was awake and alert at the time of discharge and didn't meet admission criteria. She presents here in cardiac arrest. She had copious secretions suctioned by either back suggesting she may have aspirated. She had pulses on arrival in the emergency department but lost them. We did 30 seconds of CPR and she received epinephrine and she regained pulses. Endotracheal tube placement was confirmed. She was started on Levophed and given 2 L of IV fluids. Cultures from earlier today suggests she may have gram negative bacteremia. I spoke to her . He says that she would never want to be maintained on life support. She has a poor neurologic exam with no purposeful movements, has fixed dilated pupils, and had a long downtime prior to EMS arrival. She also was asystolic initially, all very poor prognostic factors. The agrees to a do not resuscitate order and intially wanted to withdrawl life support. He says he doesn't want to see her suffer anymore. A space operations officer was called to the bedside. The decided he wasn't ready to withdrawl life support tonight and wanted to wait until the morning to reassess her. He did not want to escalate care and did not want any additional procedures. He agreed if she were to we should allow her to naturally. Pt. will be admitted to the intensive care unit. Physician Communication Physician Communication Discussed with Dr. May Diagnosis Primary Impression: Cardiac arrest Admitting Information Admitting Physician Requests: Admit Evangelina Ram MD Oct 19, 2017 20:28
[2017-10-19] MEDS ORDERED: CEFEPIME INJ 2,000 MG in SODIUM CHLORIDE 0.9% INJ 100 ML IV ONE (20:45)
[2017-10-19] MEDS ORDERED: VANCOMYCIN INJ 550 MG in SODIUM CHLOR 0.9% 250 ML INJ 250 ML IV ONE (20:45)
--- NOTE | 2017-10-19 20:59 | HHI.HP ---
[facility] Service Critical Care Medicine Primary Care Physician Satish Raphael, DO Admission Diagnosis sepsis, cardiac arrest Diagnosis: Chief Complaint: altered mental status Travel History International Travel<30 Days: No Contact w/Intl Traveler <30 Da: No Traveled to Known Affected Are: No History of Present Illness This is a 52-year-old female with a long prior history of stroke, residing in long-term facility for 3 months, with chronic sacral decubitus ulcers, chronic indwelling Ruelas. She was evaluated yesterday in the emergency department and found to have a urinary tract infection as well as likely healthcare associated ammonia. She was given IV antibiotics and discharged back to her long-term facility. She was found today unresponsive in cardiac arrest. ACLS was instituted and ROSC was obtained. She arrived to the emergency department where again a pulse was lost and ACLS was instituted with ROSC again. Post resuscitative efforts, the patient was unresponsive with fixed and dilated pupils. Patient has evidence of multiorgan system dysfunction including a lactate of 7, leukocytosis, shock liver, coagulopathy secondary to shock liver, severe metabolic acidosis with a pH less than 6.9. Conversations were had between the ER physician and the patient's and he would not want her on full life support for very long. He wanted to go home and talk with his family before pursuing comfort measures and withdrawal of care. Over state that he wanted her to be DNR with no escalation of care, no additional procedures, and no additional vasopressors. No additional history is obtainable from the patient due to her clinical condition. Review of systems is unobtainable. Review of Systems ROS Limitations: Clinical Condition, Intubated, Altered Mental Status, Unresponsive Past Family Social History Allergies: Coded Allergies: No Known Allergies (Verified Allergy, Unknown, 10/08/17) Past Medical History Patient's past medical history is unobtainable due to the clinical condition. Per chart review: Anemia Lupus Anxiety Depression High cholesterol COPD Prior CVA Fibromyalgia Colitis GERD Chronic indwelling Ruelas Recurrent urinary tract infections Hiatal hernia Hypertension Muscle wasting Right hemiparesis Right elbow, right ankle, sacral decubitus Past Surgical History Hiatal hernia repair Right shoulder reginaldo delivery Hysterectomy Fibroid cyst removal Reported Medications Azithromycin 250 Mg Tab 250 Mg PO DIRECTED Take 2 tabs (500 mg) on day 1 then 1 tab daily x 4 days. Cefdinir 300 Mg Cap 300 Mg PO BID 10 Days Fluconazole 200 Mg Tab 200 Mg PO DAILY Paxil CR (Paroxetine HCl) 25 Mg Tab 25 Mg PO DAILY Xanax (Alprazolam) 2 Mg Tab 2 Mg PO Q8H PRN 7 Days [place] (Hydrocodone-Acetaminophen) 5 Mg-325 Mg Tab 1 Tab PO Q6H PRN 7 Days Morphine ER (Morphine Sulfate) 30 Mg Tab 30 Mg PO Q8H 7 Days [place] Thyroid (Thyroid) 30 Mg Tab 30 Mg PO DAILY Aplisol (Tuberculin Ppd) 5 Tub. Unit/0.1 Ml Inj 0.1 Ml ID DAILY Nitrofurantoin Macrocrystal 100 Mg Cap 100 Mg PO QID Milk of Magnesia Liq (Magnesium Hydroxide) 400 Mg/5 Ml Susp 30 Ml PO ONCE Dulcolax Supp (Bisacodyl) 10 Mg Supp 10 Mg RECTAL PRN PRN Citroma Liq (Magnesium Citrate) 300 Ml Liq 296 Ml PO DIRECTED Cerovite Advanced Formula (Multiple Vitamins W/ Minerals) 18 Mg Iron-400 Mcg Tab PO DAILY Tylenol (Acetaminophen) 325 Mg Tab 650 Mg PO Q4H PRN Tylenol (Acetaminophen) 325 Mg Tab 325 Mg PO Q4H PRN Gentamicin Topical 0.1% Cream 1 Applic TOPICAL DAILY Apply to affected area(s) Lactobacillus Acidophilus 1 Billion Cell Tab 1 Tab PO TID Lisinopril 20 Mg Tab 20 Mg PO BID Klor-Con M20 (Potassium Chloride Microencaps) 20 Meq Tab 20 Meq PO Q12HR Dicyclomine (Dicyclomine HCl) 10 Mg Cap 10 Mg PO BID PRN Colace (Docusate Sodium) 100 Mg Capsule 1 Tab PO BID PRN Ascorbic Acid 500 Mg Tab 500 Mg PO BID Zocor (Simvastatin) 20 Mg Tab 20 Mg PO DAILY Trazodone (Trazodone HCl) 150 Mg Tablet 150 Mg PO HS Protonix (Pantoprazole Sodium) 40 Mg Tab 40 Mg PO DAILY Norvasc (Amlodipine Besylate) 10 Mg Tab 10 Mg PO DAILY Multiple Vitamin 1 Tab 1 Tab PO DAILY Ferrous Sulfate 325 Mg (65 Mg Iron) Tablet 325 Mg PO DAILY Calcium 600 with Vitamin D (Calcium Carbonate-Cholecalciferol) 600-400 mg-Unit Tab 1 Tab PO DAILY Active Ordered Medications See MAR Family History Unobtainable secondary to the clinical condition of patient. It is unlikely that is contributory to her acute illness. Social History Unobtainable due to the clinical condition of patient. Per chart review: Denied alcohol, tobacco, other drugs. Physical Exam Vital Signs Vital Signs Date Time Temp Pulse Resp B/P (MAP) Pulse Ox O2 Delivery O2 Flow Rate FiO2 10/19/17 20:48 97 14 130/68 (88) 100 Ventilator 100 10/19/17 19:53 91 14 112/72 (85) 100 Ventilator 10/19/17 19:51 85 65/48 10/19/17 19:40 100 100 10/19/17 19:35 94 16 84/58 (67) 100 Ventilator 100 10/19/17 19:34 93 16 91/65 (74) 100 Ventilator 100 10/19/17 19:29 100 10/19/17 19:23 107/64 (78) 10/19/17 19:13 124/83 (97) 10/19/17 19:00 100 100 Physical Exam GENERAL: Middle-aged female who appears much older than stated age, lying in bed , intubated, sedated, unresponsive, critically ill HEENT: Normocephalic. Atraumatic. Pupils 6 mm, equal, bilateral, nonreactive, fixed.. Mucous membranes are moist NECK: Trachea is midline. There is no JVD. CHEST: Equal chest rise. Full mechanical support. FiO2 100%. CARDIOVASCULAR: Tachycardic rate, regular rhythm. On norepinephrine at 30 mcg/ min. ABDOMEN: Soft, nontender, nondistended. No guarding. MUSCULOSKELETAL: Pulses 2+. No peripheral edema. NEUROLOGICAL: GCS 3. Pupils as above. Negative cough. Negative gag. Laboratory Laboratory Tests Test 10/19/17 18:55 10/19/17 19:30 White Blood Count 11.7 Red Blood Count 4.34 Hemoglobin 10.9 Hematocrit 36.8 Mean Corpuscular Volume 84.9 Mean Corpuscular Hemoglobin 25.2 Mean Corpuscular Hemoglobin Concent 29.7 Red Cell Distribution Width 17.9 Platelet Count 242 Mean Platelet Volume 7.8 Neutrophils (%) (Auto) 66.0 Lymphocytes (%) (Auto) 31.7 Monocytes (%) (Auto) 1.9 Eosinophils (%) (Auto) 0.1 Basophils (%) (Auto) 0.3 Neutrophils # (Auto) 7.7 Lymphocytes # (Auto) 3.7 Monocytes # (Auto) 0.2 Eosinophils # (Auto) 0.0 Basophils # (Auto) 0.0 CBC Comment AUTO DIFF Differential Comment AUTO DIFF CONFIRMED Platelet Estimate NORMAL Platelet Morphology Comment NORMAL Ovalocytes 1+ Prothrombin Time 12.0 Prothromb Time International Ratio 1.2 Blood Urea Nitrogen 25 Creatinine 0.92 Random Glucose 229 Total Protein 6.1 Albumin 1.7 Calcium Level 8.8 Alkaline Phosphatase 117 Aspartate Amino Transf (AST/SGOT) 687 Alanine Aminotransferase (ALT/SGPT) 291 Total Bilirubin 0.4 Sodium Level 136 Potassium Level 6.1 Chloride Level 101 Carbon Dioxide Level 20.6 Anion Gap 14 Estimat Glomerular Filtration Rate 64 Blood Gas Puncture Site LT FEMORAL Blood Gas Patient Temperature 98.6 Blood Gas HCO3 16 Blood Gas Base Excess -14.5 Blood Gas Oxygen Saturation 98 Arterial Blood pH 6.94 Arterial Blood Partial Pressure CO2 79 Arterial Blood Partial Pressure O2 285 Arterial Blood Oxygen Content 12.7 Arterial Blood Carboxyhemoglobin 0.2 Arterial Blood Methemoglobin 0.6 Blood Gas Hemoglobin 8.7 Oxygen Delivery Device VENTILATOR Blood Gas Ventilator Setting Blood Gas Inspired Oxygen 100 Result Diagram: 10/19/17 1855 10/19/17 1855 Imaging Last Impressions Head CT 10/19/17 0000 Signed Impressions: Service Date/Time: Thursday, October 19, 2017 21:57 - CONCLUSION: Old left- sided pontine infarct. No acute intracranial findings. Brian Su MD Chest X-Ray 10/19/17 0000 Signed Impressions: Service Date/Time: Thursday, October 19, 2017 19:38 - CONCLUSION: 1. Endotracheal tube and nasogastric tube in place. 2. Moderate sized area of left lower lobe consolidation versus atelectasis. 3. Mild bilateral perihilar opacity suggesting pulmonary vascular congestion. Brian Su MD Septic Shock Reassessment Septic shock perfusion: reassessment completed Caprini VTE Risk Assessment Caprini VTE Risk Assessment: Mod/High Risk (score >= 2) Caprini Risk Assessment Model Point Value = 1 Point Value = 2 Point Value = 3 Point Value = 5 Age 41-60 Minor surgery BMI > 25 kg/m2 Swollen legs Varicose veins or History of unexplained or recurrent spontaneous Oral contraceptives or hormone replacement Sepsis (< 1 month) Serious lung disease, including pneumonia (< 1 month) Abnormal pulmonary function Acute myocardial infarction Congestive heart failure (< 1 month) History of inflammatory bowel disease Medical patient at bed rest Age 61-74 Arthroscopic surgery Major open surgery (> 45 min) Laparoscopic surgery (> 45 min) Malignancy Confined to bed (> 72 hours) Immobilizing plaster cast Central venous access Age >= 75 History of VTE Family history of VTE Factor V Leiden Prothrombin [id number] Lupus anticoagulant Anticardiolipin antibodies Elevated serum homocysteine Heparin-induced thrombocytopenia Other congenital or acquired thrombophilia Stroke (< 1 month) Elective arthroplasty Hip, pelvis, or leg fracture Acute spinal cord injury (< 1 month) Prophylaxis Regimen Total Risk Factor Score Risk Level Prophylaxis Regimen 0-1 Low Early ambulation 2 Moderate Order ONE of the following: *Sequential Compression Device (SCD) *Heparin 5000 units SQ BID 3-4 Higher Order ONE of the following medications: *Heparin 5000 units SQ TID *Enoxaparin/Lovenox 40 mg SQ daily (WT < 150 kg, CrCl > 30 mL/min) *Enoxaparin/Lovenox 30 mg SQ daily (WT < 150 kg, CrCl > 10-29 mL/min) *Enoxaparin/Lovenox 30 mg SQ BID (WT < 150 kg, CrCl > 30 mL/min) AND/OR *Sequential Compression Device (SCD) 5 or more Highest Order ONE of the following medications: *Heparin 5000 units SQ TID (Preferred with Epidurals) *Enoxaparin/Lovenox 40 mg SQ daily (WT < 150 kg, CrCl > 30 mL/min) *Enoxaparin/Lovenox 30 mg SQ daily (WT < 150 kg, CrCl > 10-29 mL/min) *Enoxaparin/Lovenox 30 mg SQ BID (WT < 150 kg, CrCl > 30 mL/min) AND *Sequential Compression Device (SCD) Assessment and Plan Assessment and Plan Assessment: This is a 52-year-old female with multiple chronic medical comorbidities including chronic decubitus, and recent ER visit for UTI and HCAP. Now s/p [id number] cardiac arrest with hypoxic-ischemic encephalopathy. Not a candidate for therapeutic hypothermia given her hemodynamic instability and multiorgan system failure. the ER physician had long talks with her about her poor prognosis. He would not want aggressive life-saving measures. he does want us to continue aggressive therapy until his family can have discussions tonight. We all agree on DNR status for her with no escalation of care, including no additional procedures or vasopressors. She remains very critically ill with multi-organ failure. Plan by systems: Neurologic: Hypoxicischemic encephalopathy Prior CVA Fibromyalgia Chronic opiate dependence Avoid long-acting sedatives Frequent neuro checks If her neurologic status improves will use propofol and fentanyl for goal RASS - 2 CT brain 10/19 negative for acute disease, evidence of old infarct Respiratory: Acute hypoxic and hypercarbic respiratory failure Healthcare associated pneumonia COPD Wean FiO2 for goal SPO2 greater than 90% No weaning mechanical ventilation until neurologic status improves Vent bundle Nebs Head of bed at 30 Anabiotic described below Cardiovascular: Cardiac shock Likely distributive shock Out of hospital cardiac arrest Continue norepinephrine for goal map greater than 65. Max of 39 g/m. No escalation of care No additional vasopressors per patient and 's wishes Trend lactates Renal: Acute kidney injury Chronic indwelling Ruelas UTI -- Strict I/Os Antibiotics as below Frequent urine output checks Daily BMP FEN/GI: Acute protein calorie malnutrition- severe Shock liver Hyperkalemia Severe metabolic acidosis Lactic acidosis Daily BMP Nothing by mouth Place OG tube to suction Trend LFTs Trend lactates Maintenance IV fluids Heme/ID: Coagulopathy secondary to shock liver Urinary tract infection Healthcare associated pneumonia Vancomycin Cefepime Flagyl Blood cultures Urine culture Sputum culture Trend coags Does not need transfusion triggers at this time Daily CBC Endocrine: Hyperglycemia of critical illness -- SSI, medium scale, every 6 Prophylaxis: GI Prophylaxis Pepcid IV DVT Prophylaxis -- SCDs Subcutaneous heparin Lines: Peripheral IVs Ruelas At the patient's 's request will not place central access her arterial access at this time. Dispo: Admit to ICU. Critically ill This patient remains critically ill with one or more organ systems which are or may become a threat to life. I have spent in excess of 52 minutes discontinuously in the care and management of this patient. This time is exclusive of procedures, and includes, but is not limited to, evaluation of the patient, review of the medical record, discussions with family, consultants, nursing staff, or respiratory therapy, and documentation in the medical record. At the request of the patient's , the patient will be DNR with no escalation of care, no additional procedures, no additional vasopressors. Code Status DNR Wilber Figueroa MD Oct 19, 2017 20:59
[2017-10-19] MEDS ORDERED: MISCELLANEOUS NURSING INFORMATION XX SCH (21:00)
[2017-10-19] MEDS ORDERED: MAGNESIUM HYDROXIDE SUSP 30 ML CUP PO PRN (21:00)
[2017-10-19] MEDS ORDERED: CHLORHEXIDINE GLUCONATE 2 % 1 PACK (2 CLOTHS) TOP PRN (21:00)
[2017-10-19] MEDS ORDERED: RESP: ALBUTEROL 2.5 MG/IPRATROPIUM 0.5 MG NEB (PRN) INH (21:00)
[2017-10-19] MEDS ORDERED: ONDANSETRON HCL 4 MG/2 ML VIAL IV PUSH PRN (21:00)
[2017-10-19] MEDS: DOCUSATE SODIUM 50 MG/SENNA 8.6 MG TAB PO SCH (21:00)
[2017-10-19] MEDS ORDERED: Vancomycin Consult Pharmacy 1 EA OTHER SCH (21:00)
[2017-10-19] MEDS: HEPARIN SODIUM - SQ 10,000 UNITS/ML VIAL SQ SCH (21:32)
[2017-10-19] MEDS: FAMOTIDINE 20 MG/2 ML VIAL IV PUSH SCH (21:32)
[2017-10-19] MEDS: metroNIDAZOLE 500 MG INJ 100 ML IV SCH (21:32)
[2017-10-19] MEDS: RESP: ALBUTEROL 2.5 MG/IPRATROPIUM 0.5 MG NEB (SCH) INH (21:40)
--- NOTE | 2017-10-19 22:21 | RADRPT ---
EXAM DATE/TIME: 10/19/2017 21:57 [place] COMPARISON: No previous studies available for comparison. INDICATIONS : Unresponsive patient on vent. RADIATION DOSE: 23.78 CTDIvol (mGy) ; Patient motion MEDICAL HISTORY : Hypertension. Cardiovascular disease Chronic obstructive pulmonary disease. SURGICAL HISTORY : None. ENCOUNTER: Initial ACUITY: 1 day PAIN SCALE: Non-responsive LOCATION: cranial TECHNIQUE: Multiple contiguous axial images were obtained of the head. Using automated exposure control and adj ustment of the mA and/or kV according to patient size, radiation dose was kept as low as reasonably a chievable to obtain optimal diagnostic quality images. DICOM format image data is available electro nically for review and comparison. FINDINGS: CEREBRUM: The ventricles are normal for age. No evidence of midline shift, mass lesion, hemorrhage or acute in farction. No extra-axial fluid collections are seen. POSTERIOR FOSSA: 6 mm CSF density in the left side of the randy indicating old infarct. 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 SKULL: The calvaria is intact. No evidence of skull fracture. CONCLUSION: Old left-sided pontine infarct. No acute intracranial findings. Brian Su MD on October 19, 2017 at 22:12 Board Certified Radiologist. This report was verified electronically.
[2017-10-19] MEDS: SODIUM CHLOR 0.9% 1000 ML INJ 1,000 ML IV SCH (22:47)
[2017-10-19] MEDS: VANCOMYCIN 500 MG/NS 100 ML IV SCH ×2 (22:47)
[2017-10-20] VITALS (36 sets, daily range): BP systolic 78–161; BP diastolic 46–75; PULSE 97–125; RESP 19–35; O2SAT 97–100
[2017-10-20 01:04] LABS: LACTIC ACID SEPSIS PROTOCOL 6.8 mmol/L (0.4-2.0)
[2017-10-20] MEDS: metroNIDAZOLE 500 MG INJ 100 ML IV SCH ×4 (03:00→20:21)
[2017-10-20] MEDS: NOREPINEPHRINE INJ 4 MG in SODIUM CHLOR 0.9% 250 ML INJ 246 ML IV PRN (03:04)
[2017-10-20] MEDS: RESP: ALBUTEROL 2.5 MG/IPRATROPIUM 0.5 MG NEB (SCH) INH ×4 (03:23→20:14)
[2017-10-20] MEDS: CHLORHEXIDINE GLUCONATE 2 % 1 PACK (2 CLOTHS) TOP SCH (04:00)
[2017-10-20] MEDS: CEFEPIME INJ 2,000 MG in SODIUM CHLORIDE 0.9% INJ 100 ML IV SCH ×3 (05:00→20:21)
[2017-10-20] MEDS: HEPARIN SODIUM - SQ 10,000 UNITS/ML VIAL SQ SCH ×2 (05:00→13:00)
[2017-10-20 06:17] LABS: HEMATOCRIT 37.4 % (35.0-46.0); HEMOGLOBIN 11.8 GM/DL (11.6-15.3); MEAN CELL VOLUME 80.9 FL (80.0-100.0); MEAN CORPUSCULAR HEMOGLOBIN 25.5 PG (27.0-34.0); MEAN CORPUSCULAR HGB CONC 31.5 % (32.0-36.0); MEAN PLATELET VOLUME 7.6 FL (7.0-11.0); PLATELET COUNT 243 TH/MM3 (150-450); RED BLOOD COUNT 4.62 MIL/MM3 (4.00-5.30); RED CELL DISTRIBUTION WIDTH 17.6 % (11.6-17.2); WHITE BLOOD COUNT 19.1 TH/MM3 (4.0-11.0)
[2017-10-20 06:23] LABS: INTERNATIONAL NORMALIZED RATIO 1.9 RATIO; PROTHROMBIN TIME - PATIENT 19.4 SEC (9.8-11.6)
[2017-10-20 06:43] LABS: BICARBONATE 19.8 MEQ/L (21.0-32.0); BLOOD UREA NITROGEN 34 MG/DL (7-18); CALCIUM 8.2 MG/DL (8.5-10.1); CHLORIDE 111 MEQ/L (98-107); DIRECT BILIRUBIN ADULT 1.2 MG/DL (0.0-0.2); GLUCOSE,RANDOM 112 MG/DL (74-106); SODIUM (NA) 142 MEQ/L (136-145)
[2017-10-20 06:56] LABS: ALKALINE PHOSPHATASE 297 U/L (45-117); ALT (GPT) 1389 U/L (10-53); AST (GOT) 3548 U/L (15-37); INDIRECT BILIRUBIN 0.3 MG/DL (0.0-0.8); TOTAL BILIRUBIN ADULT 1.5 MG/DL (0.2-1.0); TOTAL PROTEIN 6.6 GM/DL (6.4-8.2)
[2017-10-20] MEDS: DOCUSATE SODIUM 50 MG/SENNA 8.6 MG TAB PO SCH ×2 (07:48→20:22)
[2017-10-20] MEDS: FAMOTIDINE 20 MG/2 ML VIAL IV PUSH SCH ×2 (07:49→20:22)
[2017-10-20] MEDS: CHLORHEXIDINE 0.12% (ORAL KIT) 15 ML CUP MT SCH ×2 (07:50→20:00)
[2017-10-20] MEDS ORDERED: MORPHINE SULFATE 2 MG/ML INJ IV PRN (08:45)
[2017-10-20] MEDS: SODIUM CHLOR 0.9% 1000 ML INJ 1,000 ML IV SCH ×2 (10:00→19:17)
--- NOTE | 2017-10-20 14:12 | HHI.CCPN ---
Subjective Remarks/Hospital Course 10/19: This is a 52-year-old female with a long prior history of stroke, [facility], with chronic sacral decubitus ulcers, chronic indwelling Ruelas. She was evaluated yesterday in the emergency department and found to have a urinary tract infection as well as likely healthcare associated ammonia. She was given IV antibiotics and discharged back to her [facility] facility. She was found today unresponsive in cardiac arrest. ACLS was instituted and ROSC was obtained. She arrived to the emergency department where again a pulse was lost and ACLS was instituted with ROSC again. Post resuscitative efforts, the patient was unresponsive with fixed and dilated pupils. Patient has evidence of multiorgan system dysfunction including a lactate of 7, leukocytosis, shock liver, coagulopathy secondary to shock liver, severe metabolic acidosis with a pH less than 6.9. Conversations were had between the ER physician and the patient's and he would not want her on full life support for very long. He wanted to go home and talk with his family before pursuing comfort measures and withdrawal of care. Over state that he wanted her to be DNR with no escalation of care, no additional procedures, and no additional vasopressors. No additional history is obtainable from the patient due to her clinical condition. Review of systems is unobtainable. 10/20: Remains encephalopathic, orally intubated on mechanical ventilation. Objective Vital Signs Date Time Temp Pulse Resp B/P (MAP) Pulse Ox O2 Delivery O2 Flow Rate FiO2 10/20/17 10:07 99 40 10/20/17 06:01 167/78 10/20/17 06:00 123 10/20/17 04:00 98.6 25 10/19/17 21:52 Ventilator Intake and Output 10/20/17 10/20/17 10/21/17 08:00 16:00 00:00 Intake Total 1771 ml 300 ml Output Total 1000 ml Balance 771 ml 300 ml Result Diagram: 10/20/17 0537 10/20/17 0537 Other Results Laboratory Tests Test 10/19/17 19:30 Blood Gas Puncture Site LT FEMORAL Blood Gas Patient Temperature 98.6 Blood Gas HCO3 16 mmol/L (22-26) Blood Gas Base Excess -14.5 mmol/L (-2-2) Blood Gas Oxygen Saturation 98 % (90-100) Arterial Blood pH 6.94 (7.380-7.420) Arterial Blood Partial Pressure CO2 79 mmHg (38-42) Arterial Blood Partial Pressure O2 285 mmHG (61-120) Arterial Blood Oxygen Content 12.7 Vol % (12.0-20.0) Arterial Blood Carboxyhemoglobin 0.2 % (0-4) Arterial Blood Methemoglobin 0.6 % (0-2) Blood Gas Hemoglobin 8.7 G/DL (12.0-16.0) Oxygen Delivery Device VENTILATOR Blood Gas Ventilator Setting Blood Gas Inspired Oxygen 100 % Imaging Last Impressions Head CT 10/19/17 0000 Signed Impressions: Service Date/Time: Thursday, October 19, 2017 21:57 - CONCLUSION: Old left- sided pontine infarct. No acute intracranial findings. Brian Su MD Chest X-Ray 10/19/17 0000 Signed Impressions: Service Date/Time: Thursday, October 19, 2017 19:38 - CONCLUSION: 1. Endotracheal tube and nasogastric tube in place. 2. Moderate sized area of left lower lobe consolidation versus atelectasis. 3. Mild bilateral perihilar opacity suggesting pulmonary vascular congestion. Brian Su MD Objective Remarks GENERAL: Middle-aged female who appears much older than stated age, lying in bed , intubated, sedated, unresponsive, critically ill HEENT: Normocephalic. Atraumatic. Pupils 6 mm, equal, bilateral, nonreactive, fixed.. Mucous membranes are moist NECK: Trachea is midline. There is no JVD. CHEST: Equal chest rise. Full mechanical support. FiO2 100%. CARDIOVASCULAR: Tachycardic rate, regular rhythm. On norepinephrine at 30 mcg/ min. ABDOMEN: Soft, nontender, nondistended. No guarding. MUSCULOSKELETAL: Pulses 2+. No peripheral edema. NEUROLOGICAL: GCS 3. Pupils as above. Negative cough. Negative gag. A/P Assessment and Plan Assessment: This is a 52-year-old female with multiple chronic medical comorbidities including chronic decubitus, and recent ER visit for UTI and HCAP. Now s/p [id number] cardiac arrest with hypoxic-ischemic encephalopathy. Not a candidate for therapeutic hypothermia given her hemodynamic instability and multiorgan system failure. the ER physician had long talks with her about her poor prognosis. He would not want aggressive life-saving measures. he does want us to continue aggressive therapy until his family can have discussions. We all agree on DNR status for her with no escalation of care, including no additional procedures or vasopressors. She remains very critically ill with multi-organ failure. Plan by systems: Neurologic: Hypoxicischemic encephalopathy Prior CVA Fibromyalgia Chronic opiate dependence Avoid long-acting sedatives Frequent neuro checks If her neurologic status improves will use propofol and fentanyl for goal RASS - 2 CT brain 10/19 negative for acute disease, evidence of old infarct Respiratory: Acute hypoxic and hypercarbic respiratory failure Healthcare associated pneumonia COPD Wean FiO2 for goal SPO2 greater than 90% No weaning mechanical ventilation until neurologic status improves Vent bundle Nebs Head of bed at 30 Anabiotic described below Cardiovascular: Cardiac shock Likely distributive shock Out of hospital cardiac arrest Continue norepinephrine for goal map greater than 65. Max of 30 mcg/min. No escalation of care No additional vasopressors per patient and 's wishes Trend lactates Renal: Acute kidney injury Chronic indwelling Ruelas UTI -- Strict I/Os Antibiotics as below Frequent urine output checks Daily BMP FEN/GI: Acute protein calorie malnutrition- severe Shock liver Hyperkalemia Severe metabolic acidosis Lactic acidosis Daily BMP Nothing by mouth Place OG tube to suction Trend LFTs Trend lactates Maintenance IV fluids Heme/ID: Coagulopathy secondary to shock liver Urinary tract infection Healthcare associated pneumonia Vancomycin Cefepime Flagyl Blood cultures Urine culture Sputum culture Trend coags Does not need transfusion triggers at this time Daily CBC Endocrine: Hyperglycemia of critical illness -- SSI, medium scale, every 6 Prophylaxis: GI Prophylaxis Pepcid IV DVT Prophylaxis -- SCDs Subcutaneous heparin Lines: Peripheral IVs Ruelas At the patient's 's request central access / arterial line 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 I have spent in excess of 35 minutes discontinuously in the care and management of this patient. This time is exclusive of procedures, and includes, but is not limited to, evaluation of the patient, review of the medical record, discussions with family, consultants, nursing staff, or respiratory therapy, and documentation in the medical record. At the request of the patient's , the patient will be DNR with no escalation of care, no additional procedures, no additional vasopressors. Consulted palliative care to assist with deciding goals of therapy. Doug Duarte MD Oct 20, 2017 14:12
--- NOTE | 2017-10-20 14:14 | PD.CONS ---
Consult Service Palliative Care Consult Requested By Dr. Ousmane Duarte . Primary Care Physician Satish Raphael DO . Reason for Consultation a. To assist with evaluation and management of symptoms including: Dyspnea , pain b. To assist medical decision maker(s) with: better understanding of current medical conditions; weighing benefits/burdens of medical treatment options; making medical treatment decisions. . HPI History of Present Illness This 52-year-old female, with a past history of HI, CVA 2, lupus, and chronic pain (chronic opiate use), was admitted on 10/19/17 after resuscitation following a cardiac arrest. The patient had been brought to the emergency department early on the 10/19 date because of altered mental status and abdominal pain, and she was found to have left lower lobe pneumonia by CT scan. She was started on antibiotics and sent back to her half-way. Later in the day, the patient was found in her bed and cardiac arrest. It is said that she had last been seen perhaps 20 minutes prior to being found in asystole. Paramedics were called and resuscitation ultimately achieved a return of spontaneous circulation after CPR and epinephrine. During the initial emergency department visit, findings included findings included: * Alert, communicative * Temp 98.7, pulse 99, respirations 20, blood pressure 175/81, oxygen saturation 96% on 2 L * White count 6.3, hemoglobin 13.0 * Urinalysis consistent with UTI * Chest x-ray with no acute disease * Abdomen/pelvis CT with left lung base pneumonia and a dilated common bile duct Following resuscitation after the cardiac arrest at her half-way, findings in the emergency department included: * Unresponsive * Nonreactive pupils * AST 607, ALT 291 * CT brain revealed the old left pontine infarct * Chest x-ray now showed evidence of left-sided infiltrate The patient was felt to not be a candidate for cold cool, and she was admitted to [facility] [place] In the emergency department, the patient's had expressed to the staff that the patient would not want to be kept on life support. The patient was on high-dose Levophed coming out of the emergency department, but that had been tapered and discontinued prior to the time I was seeing her just afternoon today. It is noted that the patient has been on oral morphine for at least 7 years because of chronic pain following a injury to her neck and back, and she has just been given some parenteral morphine here. Palliative Care was consulted to assist with symptom management, and to enter into discussions with the patient's regarding the severity of her illnesses, the prognosis, and the benefits and burdens of the various treatment choices. . Function/Cognitive Trajectory The patient reportedly had a "minor stroke" a couple years ago, with completely recovery and return home. She then had another stroke within the past year that left her with right-sided hemiparesis. She was starting to get back on her feet and was able to go home but after only a couple weeks there she fell and broke her foot. She has been nonambulatory since then, and she has been total care, bedbound in a half-way for the past several months. reports her mind is still sharp and she was quite talkative. The reports she has had skin breakdown when she was in the hospital for her most recent stroke, and that it has been getting worse in the last couple months at the nursing facility where she has been eating less, losing weight, and had obvious muscle wasting. . Review of Systems ROS Limitations: Clinical Condition (history per patient's and from medical records), Intubated, Altered Mental Status Constitutional: COMPLAINS OF: Weight loss Endocrine: DENIES: Polyuria Eyes: DENIES: Eye inflammation Ears, nose, mouth, throat: DENIES: Epistaxis Respiratory: COMPLAINS OF: Shortness of breath (intubated and brought to the emergency department) Cardiovascular: DENIES: Chest pain Gastrointestinal: DENIES: Diarrhea, Vomiting Genitourinary: DENIES: Hematuria Musculoskeletal: COMPLAINS OF: Back pain (for several years), Neck pain (for several years) Integumentary: DENIES: Rash Hematologic/Lymphatics: DENIES: Bruising Immunologic/Allergic: DENIES: Urticaria Neurologic: COMPLAINS OF: Localized weakness (right-sided weakness since a stroke last year), DENIES: Seizures Psychiatric: DENIES: Hallucinations Past Family Social History Coded Allergies: No Known Allergies (Verified Allergy, Unknown, 10/08/17) Past Medical History * CVA 2, with right-sided hemiparesis * CAD, history of HI * History of substance abuse, reportedly sober for several years * Long-term cigarette smoker * Lupus * Sacral decubitus for several months * History of porphyria * Chronic pain, neck and back * History of fibromyalgia * Depression * History of colitis . Past Surgical History * Surgery on her coccyx * Hysterectomy * Herniorrhaphy * * Right shoulder surgery after a fracture * Skin cyst removal . Reported Medications Reported Meds & Active Scripts Active Azithromycin 250 Mg Tab 250 Mg PO DIRECTED Take 2 tabs (500 mg) on day 1 then 1 tab daily x 4 days. Cefdinir 300 Mg Cap 300 Mg PO BID 10 Days Fluconazole 200 Mg Tab 200 Mg PO DAILY Paxil CR (Paroxetine HCl) 25 Mg Tab 25 Mg PO DAILY Xanax (Alprazolam) 2 Mg Tab 2 Mg PO Q8H PRN 7 Days Zearing (Hydrocodone-Acetaminophen) 5 Mg-325 Mg Tab 1 Tab PO Q6H PRN 7 Days Morphine ER (Morphine Sulfate) 30 Mg Tab 30 Mg PO Q8H 7 Days Reported Nelson Thyroid (Thyroid) 30 Mg Tab 30 Mg PO DAILY Aplisol (Tuberculin Ppd) 5 Tub. Unit/0.1 Ml Inj 0.1 Ml ID DAILY Nitrofurantoin Macrocrystal 100 Mg Cap 100 Mg PO QID Milk of Magnesia Liq (Magnesium Hydroxide) 400 Mg/5 Ml Susp 30 Ml PO ONCE Dulcolax Supp (Bisacodyl) 10 Mg Supp 10 Mg RECTAL PRN PRN Citroma Liq (Magnesium Citrate) 300 Ml Liq 296 Ml PO DIRECTED Cerovite Advanced Formula (Multiple Vitamins W/ Minerals) 18 Mg Iron-400 Mcg Tab PO DAILY Tylenol (Acetaminophen) 325 Mg Tab 650 Mg PO Q4H PRN Tylenol (Acetaminophen) 325 Mg Tab 325 Mg PO Q4H PRN Gentamicin Topical 0.1% Cream 1 Applic TOPICAL DAILY Apply to affected area(s) Lactobacillus Acidophilus 1 Billion Cell Tab 1 Tab PO TID Lisinopril 20 Mg Tab 20 Mg PO BID Klor-Con M20 (Potassium Chloride Microencaps) 20 Meq Tab 20 Meq PO Q12HR Dicyclomine (Dicyclomine HCl) 10 Mg Cap 10 Mg PO BID PRN Colace (Docusate Sodium) 100 Mg Capsule 1 Tab PO BID PRN Ascorbic Acid 500 Mg Tab 500 Mg PO BID Zocor (Simvastatin) 20 Mg Tab 20 Mg PO DAILY Trazodone (Trazodone HCl) 150 Mg Tablet 150 Mg PO HS Protonix (Pantoprazole Sodium) 40 Mg Tab 40 Mg PO DAILY Norvasc (Amlodipine Besylate) 10 Mg Tab 10 Mg PO DAILY Multiple Vitamin 1 Tab 1 Tab PO DAILY Ferrous Sulfate 325 Mg (65 Mg Iron) Tablet 325 Mg PO DAILY Calcium 600 with Vitamin D (Calcium Carbonate-Cholecalciferol) 600-400 mg-Unit Tab 1 Tab PO DAILY . Current Medications Medications (Trade) Dose Ordered Sig/Neville Route Start Time Stop Time Status Last Admin Norepinephrine Bitartrate 4 mg/ Sodium Chloride 250 ml @ 7.5 mls/hr TITRATE PRN IV 10/19/17 19:45 10/20/17 03:04 (Dilaudid Pf Inj) 0.5 mg ONCE PRN IV PUSH 10/19/17 20:00 10/20/17 07:49 (Peridex 0.12% Liq) 15 ml BID@08,20 MT 10/20/17 08:00 10/20/17 07:50 (Duoneb Neb) 1 ampule Q6HR NEB INH 10/19/17 22:00 10/20/17 10:07 (Duoneb Neb) 1 ampule Q2HR NEB PRN INH 10/19/17 21:00 Sodium Chloride 1,000 ml @ 84 mls/hr [id number] IV 10/19/17 20:54 10/20/17 10:00 (Pepcid Inj) 20 mg Q12HR IV PUSH 10/19/17 21:00 10/20/17 07:49 (Zofran Inj) 4 mg Q6H PRN IV PUSH 10/19/17 21:00 (Heparin Inj) 5,000 units Q8H SQ 10/19/17 21:00 10/20/17 05:00 Miscellaneous Information 1 Q361D XX 10/19/17 21:00 10/19/17 21:00 (Chlorhexidine 2% Cloth) 3 pack Taper DAILY@04 TOP 10/20/17 04:00 10/16/18 03:59 10/20/17 04:00 (Chlorhexidine 2% Cloth) 3 pack UNSCH PRN TOP 10/19/17 21:00 (Eloisa-Colace) 1 tab BID PO 10/19/17 21:00 10/20/17 07:48 (Milk Of Magnesia Liq) 30 ml Q12H PRN PO 10/19/17 21:00 Cefepime HCl 2000 mg/Sodium Chloride 100 ml @ 200 mls/hr Q8H IV 10/20/17 05:00 10/20/17 12:04 Metronidazole 100 ml @ 100 mls/hr Q6H IV 10/19/17 21:00 10/20/17 07:48 Pharmacy Profile Note 0 ml @ 0 mls/hr UNSCH OTHER 10/19/17 21:00 Vancomycin HCl 500 mg/Sodium Chloride 100 ml @ 200 mls/hr Q24H IV 10/19/17 22:00 10/19/17 22:47 Miscellaneous Information SPECIFIC LAB TO BE DRAWN:[facility]AN[facility] TROUGH DATE TO BE DR... ONCE ONCE .XX 10/22/17 21:45 10/22/17 21:46 (Morphine Inj) 4 mg Q1H PRN IV 10/20/17 08:45 10/20/17 12:04 Family History The patient's mother of an HI, and her father was murdered. There is no known family history of lupus or CVA. . Substance Use Tobacco: Long-term cigarette smoker, only a couple cigarettes per day in recent months Alcohol: No alcohol for many years. Prescription med abuse: Denied. She has, however, been on chronic opiates for about 7 years. Illicits: Patient was a cocaine abuser for several years when she was in her teens and 20s, but reportedly not in the last 20 years. . . Psychosocial History The patient was born and raised in [place], and moved here with her about 25 years ago. She has been about 26 years, but has lived in a half-way the past several months. The patient had 3 children, but the reports all 3 were "taken away from her and adopted out" when the patient was engaged in active cocaine/substance abuse while in her 20s. The patient has been on disability for more than 7 years since a neck injury and the development of chronic neck and back pain. . Spiritual/Cultural Factors The patient has a [employer] background, and the did request a mobility engineer visit yesterday "for last rights." . Living Will: Never completed Health Care Surrogate: Never completed Durable Power of Refinery Operator Helper Crude Unit: Never completed Family/friends goals: The patient's reports that the patient has been very clear on multiple occasions in the past when she said that she would not want to be kept on life support if she had a significant brain injury. has requested DNR status , and is requesting NO ESCALATION OF CARE. He will likely have her withdrawn from life support to allow natural in the upcoming hours or days. . Ethical and Legal Issues There are no ethical issues that would impact her care or decision-making at this time. The patient lacks capacity for decision-making and she will not regain that capacity. Her is the proxy decision-maker. . Physical Exam Vital Signs Date Time Temp Pulse Resp B/P (MAP) Pulse Ox O2 Delivery O2 Flow Rate FiO2 10/20/17 10:07 99 40 10/20/17 06:01 167/78 10/20/17 06:00 123 10/20/17 04:23 99 40 10/20/17 04:00 98.6 125 25 161/74 (103) 100 10/20/17 04:00 40 10/20/17 04:00 125 10/20/17 03:04 138/79 10/20/17 02:56 139/79 10/20/17 02:00 121 10/20/17 01:10 100 50 10/20/17 00:23 127 134/75 10/20/17 00:00 60 10/20/17 00:00 112 10/20/17 00:00 95.4 112 26 134/75 (94) 100 10/19/17 23:43 60 10/19/17 23:42 111 10/19/17 23:39 94.9 10/19/17 23:16 140/63 10/19/17 21:58 100 100 10/19/17 21:52 99 14 136/78 (97) 99 Ventilator 100 10/19/17 21:45 10/19/17 21:30 100 60 10/19/17 20:48 97 14 130/68 (88) 100 Ventilator 100 10/19/17 19:53 91 14 112/72 (85) 100 Ventilator 10/19/17 19:51 85 65/48 10/19/17 19:40 100 100 10/19/17 19:35 94 16 84/58 (67) 100 Ventilator 100 10/19/17 19:34 93 16 91/65 (74) 100 Ventilator 100 10/19/17 19:29 100 10/19/17 19:23 107/64 (78) 10/19/17 19:13 124/83 (97) 10/19/17 19:00 100 100 10/20/17 10/21/17 19:00 07:00 Intake Total 300 ml Balance 300 ml Intake IV Total 300 ml Exam CONSTITUTIONAL/GENERAL: This is a frail, unresponsive, mechanically ventilated patient, in the C in no apparent distress. TUBES/LINES/DRAINS: Endotracheal tube, IV access, Ruelas SKIN: No jaundice, rashes, or lesions. Ecchymoses on upper extremities. No wounds seen anteriorly. Skin temperature appropriate. Not diaphoretic. HEAD: Atraumatic. Normocephalic. EYES: Pupils equal and round but NOT reactive. No scleral icterus. No injection or drainage. Fundi not examined. ENT: Nose without bleeding or purulent drainage. NECK: Trachea midline. Supple, nontender. No palpable thyroid enlargement or nodularity. CARDIOVASCULAR: Regular rate and rhythm without murmurs, gallops, or rubs. No JVD. Peripheral pulses quite diminished. RESPIRATORY/CHEST: Symmetric, unlabored respirations on the ventilator. Scattered rhonchi. GASTROINTESTINAL: Abdomen soft, non-tender, nondistended. No hepato-splenomegaly , or palpable masses. No guarding. Bowel sounds present. GENITOURINARY: Without palpable bladder distension. Ruelas catheter in place. MUSCULOSKELETAL: Her feet are cool. There is obvious muscle wasting in all 4 extremities. LYMPHATICS: No palpable cervical or supraclavicular adenopathy. NEUROLOGICAL: Unresponsive to touch, voice, or pain PSYCHIATRIC: Unable to assess due to her clinical condition. . Diagnostic Tests Laboratory Laboratory Tests Test 10/19/17 18:55 10/19/17 19:30 10/19/17 20:45 10/19/17 22:35 White Blood Count 11.7 TH/MM3 (4.0-11.0) Red Blood Count 4.34 MIL/MM3 (4.00-5.30) Hemoglobin 10.9 GM/DL (11.6-15.3) Hematocrit 36.8 % (35.0-46.0) Mean Corpuscular Volume 84.9 FL (80.0-100.0) Mean Corpuscular Hemoglobin 25.2 PG (27.0-34.0) Mean Corpuscular Hemoglobin Concent 29.7 % (32.0-36.0) Red Cell Distribution Width 17.9 % (11.6-17.2) Platelet Count 242 TH/MM3 (150-450) Mean Platelet Volume 7.8 FL (7.0-11.0) Neutrophils (%) (Auto) 66.0 % (16.0-70.0) Lymphocytes (%) (Auto) 31.7 % (9.0-44.0) Monocytes (%) (Auto) 1.9 % (0.0-8.0) Eosinophils (%) (Auto) 0.1 % (0.0-4.0) Basophils (%) (Auto) 0.3 % (0.0-2.0) Neutrophils # (Auto) 7.7 TH/MM3 (1.8-7.7) Lymphocytes # (Auto) 3.7 TH/MM3 (1.0-4.8) Monocytes # (Auto) 0.2 TH/MM3 (0-0.9) Eosinophils # (Auto) 0.0 TH/MM3 (0-0.4) Basophils # (Auto) 0.0 TH/MM3 (0-0.2) CBC Comment AUTO DIFF Differential Comment AUTO DIFF CONFIRMED Platelet Estimate NORMAL (NORMAL) Platelet Morphology Comment NORMAL (NORMAL) Ovalocytes 1+ (NORMAL) Prothrombin Time 12.0 SEC (9.8-11.6) Prothromb Time International Ratio 1.2 RATIO Blood Urea Nitrogen 25 MG/DL (7-18) Creatinine 0.92 MG/DL (0.50-1.00) Random Glucose 229 MG/DL (74-106) Total Protein 6.1 GM/DL (6.4-8.2) Albumin 1.7 GM/DL (3.4-5.0) Calcium Level 8.8 MG/DL (8.5-10.1) Alkaline Phosphatase 117 U/L (45-117) Aspartate Amino Transf (AST/SGOT) 687 U/L (15-37) Alanine Aminotransferase (ALT/SGPT) 291 U/L (10-53) Total Bilirubin 0.4 MG/DL (0.2-1.0) Sodium Level 136 MEQ/L (136-145) Potassium Level 6.1 MEQ/L (3.5-5.1) Chloride Level 101 MEQ/L (98-107) Carbon Dioxide Level 20.6 MEQ/L (21.0-32.0) Anion Gap 14 MEQ/L (5-15) Estimat Glomerular Filtration Rate 64 ML/MIN (>89) Blood Gas Puncture Site LT FEMORAL Blood Gas Patient Temperature 98.6 Blood Gas HCO3 16 mmol/L (22-26) Blood Gas Base Excess -14.5 mmol/L (-2-2) Blood Gas Oxygen Saturation 98 % (90-100) Arterial Blood pH 6.94 (7.380-7.420) Arterial Blood Partial Pressure CO2 79 mmHg (38-42) Arterial Blood Partial Pressure O2 285 mmHG (61-120) Arterial Blood Oxygen Content 12.7 Vol % (12.0-20.0) Arterial Blood Carboxyhemoglobin 0.2 % (0-4) Arterial Blood Methemoglobin 0.6 % (0-2) Blood Gas Hemoglobin 8.7 G/DL (12.0-16.0) Oxygen Delivery Device VENTILATOR Blood Gas Ventilator Setting Blood Gas Inspired Oxygen 100 % Lactic Acid Level 7.1 mmol/L (0.4-2.0) Nasal Screen MRSA (PCR) MRSA DETECTED (NOT DETECT) Test 10/20/17 00:23 10/20/17 03:17 10/20/17 05:37 Lactic Acid Level 6.8 mmol/L (0.4-2.0) 5.1 mmol/L (0.4-2.0) 4.2 mmol/L (0.4-2.0) White Blood Count 19.1 TH/MM3 (4.0-11.0) Red Blood Count 4.62 MIL/MM3 (4.00-5.30) Hemoglobin 11.8 GM/DL (11.6-15.3) Hematocrit 37.4 % (35.0-46.0) Mean Corpuscular Volume 80.9 FL (80.0-100.0) Mean Corpuscular Hemoglobin 25.5 PG (27.0-34.0) Mean Corpuscular Hemoglobin Concent 31.5 % (32.0-36.0) Red Cell Distribution Width 17.6 % (11.6-17.2) Platelet Count 243 TH/MM3 (150-450) Mean Platelet Volume 7.6 FL (7.0-11.0) Prothrombin Time 19.4 SEC (9.8-11.6) Prothromb Time International Ratio 1.9 RATIO Activated Partial Thromboplast Time 32.1 SEC (24.3-30.1) Blood Urea Nitrogen 34 MG/DL (7-18) Creatinine 0.70 MG/DL (0.50-1.00) Random Glucose 112 MG/DL (74-106) Total Protein 6.6 GM/DL (6.4-8.2) Albumin 2.0 GM/DL (3.4-5.0) Calcium Level 8.2 MG/DL (8.5-10.1) Alkaline Phosphatase 297 U/L (45-117) Aspartate Amino Transf (AST/SGOT) 3548 U/L (15-37) Alanine Aminotransferase (ALT/SGPT) 1389 U/L (10-53) Total Bilirubin 1.5 MG/DL (0.2-1.0) Direct Bilirubin 1.2 MG/DL (0.0-0.2) Sodium Level 142 MEQ/L (136-145) Potassium Level 3.8 MEQ/L (3.5-5.1) Chloride Level 111 MEQ/L (98-107) Carbon Dioxide Level 19.8 MEQ/L (21.0-32.0) Anion Gap 11 MEQ/L (5-15) Indirect Bilirubin 0.3 MG/DL (0.0-0.8) Result Diagram: 10/20/17 0537 10/20/17 0537 Imaging Last Impressions Head CT 10/19/17 0000 Signed Impressions: Service Date/Time: Thursday, October 19, 2017 21:57 - CONCLUSION: Old left- sided pontine infarct. No acute intracranial findings. Brian Su MD Chest X-Ray 10/19/17 0000 Signed Impressions: Service Date/Time: Thursday, October 19, 2017 19:38 - CONCLUSION: 1. Endotracheal tube and nasogastric tube in place. 2. Moderate sized area of left lower lobe consolidation versus atelectasis. 3. Mild bilateral perihilar opacity suggesting pulmonary vascular congestion. Brian Su MD Procedures INTUBATION 10/19/17 . Patient/Family Conference Present at Family Conference: Patient's , [facility]am. Palliative Care CONSULTING TECHNICAL MANAGERDannielle Neal. . Family Conference Time (mins): 49 Family Conference Location: Consult Room Issues Discussed: * Palliative care role, purpose, approach * Additional medical, psychosocial, and spiritual history * Patients general health, functional status, and cognitive changes in the months leading up to the current hospitalization * Patient/family understanding of the current medical problems * Patient/family understanding of prognosis * Patients goals of care as best understood from advance directives and/or conversations and/or values * Current medical treatment options and benefits/burdens of those options * Likely scenarios comparing ongoing aggressive care with a transition to comfort measures only * Questions answered to the best of my ability * Palliative care contact information provided The patient's reports that the patient has been very clear on multiple occasions in the past when she said that she would not want to be kept on life support if she had a significant brain injury. has requested DNR status , and is requesting NO ESCALATION OF CARE. He will likely have her withdrawn from life support to allow natural in the upcoming hours or days, as he is certain that that is what she would want in this situation. Anticipatory guidance regarding withdrawal of life support provided. . Assessment and Plan Disease Oriented Problem List: (1) anoxic encephalopathy (2) cardiac arrest, resuscitation with ROSC (3) "shock liver" (4) respiratory failure, mechanical ventilation (5) anemia, recent transfusions (6) history of CVA 2, right hemiparesis (7) CAD, history of HI (8) chronic pain, chronic opiate use (9) decubitus ulcer, sacrum (10) history of lupus (11) history of porphyria (12) history of fibromyalgia (13) history of depression (14) history of colitis Symptom Scale: (1) pain 0-10 Scale: Unable to quantify (has been on opiates for years) (2) encephalopathy 0-10 Scale: Unable to quantify (appears to be quite profound) (3) dyspnea 0-10 Scale: Unable to quantify Pertinent Non-Medical Issues Psychosocial: 26 years, former cocaine abuser but sober for years, 3 children taken from her while she was in her 20s, on long-term disability for chronic pain. Spiritual: Ep[employer] background, unaffiliated recently, has visited here in the hospital Legal: Patient lacks capacity for decision-making and will not regain that capacity. is decision making proxy. Ethical issues impacting care: None . Important Contacts : [facility] Fam (Charlie) [phone] . Prognosis The patient's prognosis is quite poor. She had been declining steadily in recent months with profound muscle wasting/cachexia, skin breakdown, infections , and now she has suffered a cardiac arrest resulting in significant anoxic brain injury. . Code Status: No Code Plan * DO NOT RESUSCITATE * NO ESCALATION OF CARE, NO PRESSORS * DECISION-MAKING: The patient lacks capacity for decision-making and she will not regain that capacity. Her is the decision making proxy. * GOALS: The patient's reports that the patient has been very clear on multiple occasions in the past when she said that she would not want to be kept on life support if she had a significant brain injury. has requested DNR status, and is requesting NO ESCALATION OF CARE. He will likely have her withdrawn from life support to allow natural in the upcoming hours or days , as he is certain that that is what she would want in this situation. * SYMPTOMS: The patient's has requested that we keep her on some morphine since she had been on morphine for several years and he does not want her to suffer. I have written the order for 4 mg every 4 hours scheduled. I have confirmed with the that he wants or kept on the morphine even if it makes her blood pressure goes low, and he confirms that he does not want escalation of care or pressors restarted. * The patient's wants to reconvene tomorrow morning to discuss withdrawal of life support. He is calling the patient's siblings (who he reports have not had any connection with her for several years of her condition and giving them the option to visit her. * Palliative Care will continue to follow the patient during this hospitalization. . Time Spent Total Floor Time (mins): 80 Face to Face Time (mins): 60 >50% Counseling/Coord of Care: Yes Thank you for the opportunity to participate in the care of Ms. Fam. Attestation To help prompt me to consider important information that might be impacting today's encounter and assessment, information from prior notes written by myself or my colleagues may have been "brought forward" into today's note. My signature on this note, however, is an attestation that I personally performed the exam, history, and/or decision-making noted today, and, unless otherwise indicated, the interactions with patient, family, and staff as well as the review of records all occurred today. I also attest that the listed assessment and stated plan reflect my best clinical judgment today based on the combination of historical information, prior notes, and today's exam/ interactions. When time spent is documented, it refers only to time spent today by the signer, or if indicated, combined time spent today by collaborating physician/nurse practitioner. Jaclyn Wick MD Oct 20, 2017 14:14
[2017-10-20] MEDS: MORPHINE SULFATE 2 MG/ML INJ IV PRN (14:31)
[2017-10-20] MEDS: MORPHINE SULFATE 2 MG/ML INJ IV PUSH SCH ×2 (16:26→20:22)
--- NOTE | 2017-10-20 17:06 | EKG ---
Date Performed: 10/19/2017 Time Performed: 19:00:13 PTAGE: 52 years EKG: SINUS TACHYCARDIA LEFT ATRIAL ENLARGEMENT MARKED RIGHT AXIS DEVIATION RIGHT BUNDLE BRANCH B LOCK ABNORMAL ECG NO PREVIOUS TRACING DOCTOR: Cindy Camacho Interpretating Date/Time 10/20/2017 17:05:43
[2017-10-20] MEDS: VANCOMYCIN 500 MG/NS 100 ML IV SCH ×2 (20:23)
[2017-10-21] VITALS (23 sets, daily range): BP systolic 74–121; BP diastolic 42–61; PULSE 88–103; RESP 16–33; TEMP 98.6–99.7; O2SAT 92–100
[2017-10-21] MEDS: MORPHINE SULFATE 2 MG/ML INJ IV PUSH SCH ×5 (01:11→16:44)
[2017-10-21] MEDS: metroNIDAZOLE 500 MG INJ 100 ML IV SCH ×4 (03:08→21:50)
[2017-10-21] MEDS: CHLORHEXIDINE GLUCONATE 2 % 1 PACK (2 CLOTHS) TOP SCH (04:00)
[2017-10-21] MEDS: RESP: ALBUTEROL 2.5 MG/IPRATROPIUM 0.5 MG NEB (SCH) INH ×4 (04:01→19:45)
[2017-10-21] MEDS: SODIUM CHLOR 0.9% 1000 ML INJ 1,000 ML IV SCH ×2 (05:04→16:41)
[2017-10-21] MEDS: CEFEPIME INJ 2,000 MG in SODIUM CHLORIDE 0.9% INJ 100 ML IV SCH ×3 (05:04→21:50)
[2017-10-21] MEDS: CHLORHEXIDINE 0.12% (ORAL KIT) 15 ML CUP MT SCH (08:00)
[2017-10-21 08:28] LABS: PROTHROMBIN TIME - PATIENT 20.7 SEC (9.8-11.6)
[2017-10-21 08:40] LABS: ALBUMIN 1.5 GM/DL (3.4-5.0); BICARBONATE 16.4 MEQ/L (21.0-32.0); CALCIUM 7.5 MG/DL (8.5-10.1); CREATININE 1.28 MG/DL (0.50-1.00); DIRECT BILIRUBIN ADULT 1.2 MG/DL (0.0-0.2)
[2017-10-21 08:54] LABS: INDIRECT BILIRUBIN 0.5 MG/DL (0.0-0.8); TOTAL BILIRUBIN ADULT 1.7 MG/DL (0.2-1.0); TOTAL PROTEIN 5.6 GM/DL (6.4-8.2)
[2017-10-21] MEDS: DOCUSATE SODIUM 50 MG/SENNA 8.6 MG TAB PO SCH ×2 (09:00→21:50)
[2017-10-21] MEDS: FAMOTIDINE 20 MG/2 ML VIAL IV PUSH SCH ×2 (09:33→21:50)
--- NOTE | 2017-10-21 10:33 | HHI.HCPN ---
Reason for visit a. To assist with evaluation and management of symptoms including: Dyspnea , pain b. To assist medical decision maker(s) with: better understanding of current medical conditions; weighing benefits/burdens of medical treatment options; making medical treatment decisions. . Subjective/Interval History INTERVAL NOTE: The patient remains unresponsive off sedation. Morphine comfort med was begun yesterday, and her blood pressure has been adequate. She was febrile again last night, and has a cooling blanket in place now. She was hypoglycemic this morning and that has been treated. The transaminases remain high, her bilirubin is up to 1.7, and the albumin is down to 1.5. Awaiting arrival of patient's ... . Advance Directives Living Will: Never completed Health Care Surrogate: Never completed Durable Power of Live Games Dealer: Never completed Objective Vital Signs Date Time Temp Pulse Resp B/P (MAP) Pulse Ox O2 Delivery O2 Flow Rate FiO2 10/21/17 07:09 99 40 10/21/17 06:00 103 10/21/17 05:34 30 10/21/17 04:00 40 10/21/17 04:00 99.3 101 30 119/59 (79) 99 10/21/17 04:00 99 40 10/21/17 04:00 101 10/21/17 02:00 98 10/21/17 01:04 100 40 10/21/17 00:00 99.7 100 29 121/61 (81) 100 10/21/17 00:00 40 10/21/17 00:00 100 10/20/17 22:33 100 40 10/20/17 22:00 106 10/20/17 20:17 100 40 10/20/17 20:00 103 10/20/17 20:00 101.1 103 32 115/58 (77) 100 10/20/17 20:00 40 10/20/17 19:00 100.4 101 30 113/58 (76) 100 10/20/17 18:30 99.9 100 33 111/63 (79) 100 10/20/17 18:00 99.5 99 31 106/60 (75) 100 10/20/17 17:30 99.1 98 32 104/58 (73) 100 10/20/17 17:00 98.6 97 30 96/60 (72) 100 10/20/17 16:30 98.8 97 19 89/54 (66) 100 10/20/17 16:00 99.0 97 30 110/61 (77) 100 10/20/17 16:00 40 10/20/17 15:58 100 40 10/20/17 15:30 99.5 97 29 111/58 (75) 100 10/20/17 15:00 99 31 106/57 (73) 100 10/20/17 14:30 113 32 111/56 (74) 100 10/20/17 14:00 114 31 109/59 (76) 100 10/20/17 13:30 101.7 103 33 108/55 (72) 100 10/20/17 13:00 102.0 104 33 109/56 (73) 100 10/20/17 12:30 102.2 106 33 109/58 (75) 100 10/20/17 12:19 102.4 106 34 107/57 (74) 100 10/20/17 12:00 102.4 106 33 110/56 (74) 100 10/20/17 12:00 40 10/20/17 11:30 102.7 110 34 111/57 (75) 100 10/20/17 11:00 103.1 112 34 97/54 (68) 100 10/20/17 10:30 103.5 115 34 79/51 (60) 100 Intake & Output 10/21/17 10/21/17 07:00 19:00 Intake Total 300 ml Output Total 125 ml Balance 175 ml Intake IV Total 300 ml Output Urine Total 75 ml Gastric Drainage Total 50 ml Physical Exam CONSTITUTIONAL/GENERAL: This is a frail, unresponsive, mechanically ventilated patient, in the [facility] [place] no apparent distress. TUBES/LINES/DRAINS: Endotracheal tube, IV access, Ruelas EYES: Pupils equal and round but NOT reactive. No scleral icterus. No injection or drainage. Fundi not examined. NECK: Trachea midline. Supple, nontender. No palpable thyroid enlargement or nodularity. CARDIOVASCULAR: Regular rate and rhythm without murmurs, gallops, or rubs. No JVD. Peripheral pulses quite diminished. RESPIRATORY/CHEST: Symmetric, unlabored respirations on the ventilator. Scattered rhonchi. GASTROINTESTINAL: Abdomen soft, non-tender, nondistended. No hepato-splenomegaly , or palpable masses. No guarding. Bowel sounds present. GENITOURINARY: Without palpable bladder distension. Ruelas catheter in place. MUSCULOSKELETAL: Her feet are cool. There is obvious muscle wasting in all 4 extremities. NEUROLOGICAL: Unresponsive to touch, voice, or pain PSYCHIATRIC: Unable to assess due to her clinical condition. . Diagnostic Tests Laboratory Laboratory Tests Test 10/19/17 18:55 10/19/17 19:30 10/19/17 20:45 10/19/17 22:35 White Blood Count 11.7 TH/MM3 (4.0-11.0) Red Blood Count 4.34 MIL/MM3 (4.00-5.30) Hemoglobin 10.9 GM/DL (11.6-15.3) Hematocrit 36.8 % (35.0-46.0) Mean Corpuscular Volume 84.9 FL (80.0-100.0) Mean Corpuscular Hemoglobin 25.2 PG (27.0-34.0) Mean Corpuscular Hemoglobin Concent 29.7 % (32.0-36.0) Red Cell Distribution Width 17.9 % (11.6-17.2) Platelet Count 242 TH/MM3 (150-450) Mean Platelet Volume 7.8 FL (7.0-11.0) Neutrophils (%) (Auto) 66.0 % (16.0-70.0) Lymphocytes (%) (Auto) 31.7 % (9.0-44.0) Monocytes (%) (Auto) 1.9 % (0.0-8.0) Eosinophils (%) (Auto) 0.1 % (0.0-4.0) Basophils (%) (Auto) 0.3 % (0.0-2.0) Neutrophils # (Auto) 7.7 TH/MM3 (1.8-7.7) Lymphocytes # (Auto) 3.7 TH/MM3 (1.0-4.8) Monocytes # (Auto) 0.2 TH/MM3 (0-0.9) Eosinophils # (Auto) 0.0 TH/MM3 (0-0.4) Basophils # (Auto) 0.0 TH/MM3 (0-0.2) CBC Comment AUTO DIFF Differential Comment AUTO DIFF CONFIRMED Platelet Estimate NORMAL (NORMAL) Platelet Morphology Comment NORMAL (NORMAL) Ovalocytes 1+ (NORMAL) Prothrombin Time 12.0 SEC (9.8-11.6) Prothromb Time International Ratio 1.2 RATIO Blood Urea Nitrogen 25 MG/DL (7-18) Creatinine 0.92 MG/DL (0.50-1.00) Random Glucose 229 MG/DL (74-106) Total Protein 6.1 GM/DL (6.4-8.2) Albumin 1.7 GM/DL (3.4-5.0) Calcium Level 8.8 MG/DL (8.5-10.1) Alkaline Phosphatase 117 U/L (45-117) Aspartate Amino Transf (AST/SGOT) 687 U/L (15-37) Alanine Aminotransferase (ALT/SGPT) 291 U/L (10-53) Total Bilirubin 0.4 MG/DL (0.2-1.0) Sodium Level 136 MEQ/L (136-145) Potassium Level 6.1 MEQ/L (3.5-5.1) Chloride Level 101 MEQ/L (98-107) Carbon Dioxide Level 20.6 MEQ/L (21.0-32.0) Anion Gap 14 MEQ/L (5-15) Estimat Glomerular Filtration Rate 64 ML/MIN (>89) Blood Gas Puncture Site LT FEMORAL Blood Gas Patient Temperature 98.6 Blood Gas HCO3 16 mmol/L (22-26) Blood Gas Base Excess -14.5 mmol/L (-2-2) Blood Gas Oxygen Saturation 98 % (90-100) Arterial Blood pH 6.94 (7.380-7.420) Arterial Blood Partial Pressure CO2 79 mmHg (38-42) Arterial Blood Partial Pressure O2 285 mmHG (61-120) Arterial Blood Oxygen Content 12.7 Vol % (12.0-20.0) Arterial Blood Carboxyhemoglobin 0.2 % (0-4) Arterial Blood Methemoglobin 0.6 % (0-2) Blood Gas Hemoglobin 8.7 G/DL (12.0-16.0) Oxygen Delivery Device VENTILATOR Blood Gas Ventilator Setting Blood Gas Inspired Oxygen 100 % Lactic Acid Level 7.1 mmol/L (0.4-2.0) Nasal Screen MRSA (PCR) MRSA DETECTED (NOT DETECT) Test 10/20/17 00:23 10/20/17 03:17 10/20/17 05:37 10/21/17 06:52 Lactic Acid Level 6.8 mmol/L (0.4-2.0) 5.1 mmol/L (0.4-2.0) 4.2 mmol/L (0.4-2.0) White Blood Count 19.1 TH/MM3 (4.0-11.0) Red Blood Count 4.62 MIL/MM3 (4.00-5.30) Hemoglobin 11.8 GM/DL (11.6-15.3) Hematocrit 37.4 % (35.0-46.0) Mean Corpuscular Volume 80.9 FL (80.0-100.0) Mean Corpuscular Hemoglobin 25.5 PG (27.0-34.0) Mean Corpuscular Hemoglobin Concent 31.5 % (32.0-36.0) Red Cell Distribution Width 17.6 % (11.6-17.2) Platelet Count 243 TH/MM3 (150-450) Mean Platelet Volume 7.6 FL (7.0-11.0) Prothrombin Time 19.4 SEC (9.8-11.6) 20.7 SEC (9.8-11.6) Prothromb Time International Ratio 1.9 RATIO 2.0 RATIO Activated Partial Thromboplast Time 32.1 SEC (24.3-30.1) 42.1 SEC (24.3-30.1) Blood Urea Nitrogen 34 MG/DL (7-18) 59 MG/DL (7-18) Creatinine 0.70 MG/DL (0.50-1.00) 1.28 MG/DL (0.50-1.00) Random Glucose 112 MG/DL (74-106) 48 MG/DL (74-106) Total Protein 6.6 GM/DL (6.4-8.2) 5.6 GM/DL (6.4-8.2) Albumin 2.0 GM/DL (3.4-5.0) 1.5 GM/DL (3.4-5.0) Calcium Level 8.2 MG/DL (8.5-10.1) 7.5 MG/DL (8.5-10.1) Alkaline Phosphatase 297 U/L (45-117) 338 U/L (45-117) Aspartate Amino Transf (AST/SGOT) 3548 U/L (15-37) 2437 U/L (15-37) Alanine Aminotransferase (ALT/SGPT) 1389 U/L (10-53) 1269 U/L (10-53) Total Bilirubin 1.5 MG/DL (0.2-1.0) 1.7 MG/DL (0.2-1.0) Direct Bilirubin 1.2 MG/DL (0.0-0.2) 1.2 MG/DL (0.0-0.2) Sodium Level 142 MEQ/L (136-145) 144 MEQ/L (136-145) Potassium Level 3.8 MEQ/L (3.5-5.1) 4.5 MEQ/L (3.5-5.1) Chloride Level 111 MEQ/L (98-107) 117 MEQ/L (98-107) Carbon Dioxide Level 19.8 MEQ/L (21.0-32.0) 16.4 MEQ/L (21.0-32.0) Anion Gap 11 MEQ/L (5-15) 11 MEQ/L (5-15) Indirect Bilirubin 0.3 MG/DL (0.0-0.8) 0.5 MG/DL (0.0-0.8) Estimat Glomerular Filtration Rate 43 ML/MIN (>89) Result Diagram: 10/20/17 0537 10/21/17 0652 Imaging Last Impressions Head CT 10/19/17 0000 Signed Impressions: Service Date/Time: Thursday, October 19, 2017 21:57 - CONCLUSION: Old left- sided pontine infarct. No acute intracranial findings. Brian Su MD Chest X-Ray 10/19/17 0000 Signed Impressions: Service Date/Time: Thursday, October 19, 2017 19:38 - CONCLUSION: 1. Endotracheal tube and nasogastric tube in place. 2. Moderate sized area of left lower lobe consolidation versus atelectasis. 3. Mild bilateral perihilar opacity suggesting pulmonary vascular congestion. Brian Su MD Procedures INTUBATION 10/19/17 . Assessment and Plan Disease Oriented Problem List: (1) anoxic encephalopathy (2) cardiac arrest, resuscitation with ROSC (3) "shock liver" (4) respiratory failure, mechanical ventilation (5) anemia, recent transfusions (6) history of CVA 2, right hemiparesis (7) CAD, history of MO (8) chronic pain, chronic opiate use (9) decubitus ulcer, sacrum (10) history of lupus (11) history of porphyria (12) history of fibromyalgia (13) history of depression (14) history of colitis Symptom Scale: (1) pain 0-10 Scale: Unable to quantify (has been on opiates for years) (2) encephalopathy 0-10 Scale: Unable to quantify (appears to be quite profound) (3) dyspnea 0-10 Scale: Unable to quantify Pertinent Non-Medical Issues Psychosocial: 26 years, former cocaine abuser but sober for years, 3 children taken from her while she was in her 20s, on long-term disability for chronic pain. Spiritual: Protestant background, unaffiliated recently, has visited here in the hospital Legal: Patient lacks capacity for decision-making and will not regain that capacity. is decision making proxy. Ethical issues impacting care: None . Important Contacts : [facility] ([facility]) [phone] . Prognosis The patient's prognosis is quite poor. She had been declining steadily in recent months with profound muscle wasting/cachexia, skin breakdown, infections , and now she has suffered a cardiac arrest resulting in significant anoxic brain injury. . Code Status: No Code Plan * DO NOT RESUSCITATE * NO ESCALATION OF CARE, NO PRESSORS * DECISION-MAKING: The patient lacks capacity for decision-making and she will not regain that capacity. Her is the decision making proxy. * GOALS: The patient's reports that the patient has been very clear on multiple occasions in the past when she said that she would not want to be kept on life support if she had a significant brain injury. has requested DNR status, and is requesting NO ESCALATION OF CARE. * says he is certain that that is what she would want to be kept alive on machines in this situation; awaiting his arrival in the [facility]. * SYMPTOMS: The patient's has requested that we keep her on some morphine since she had been on morphine for several years and he does not want her to suffer. I have written the order for 4 mg every 4 hours scheduled. * The patient's wants to reconvene today to discuss withdrawal of life support. He was calling the patient's siblings yesterday (who he reports have not had any connection with her for several years of her condition and giving them the option to visit her). * Palliative Care will continue to follow the patient during this hospitalization. . Jaclyn Wick MD Oct 21, 2017 10:33
[2017-10-21 12:06] LABS: HEMOGLOBIN 10.1 GM/DL (11.6-15.3); MEAN CELL VOLUME 81.3 FL (80.0-100.0); MEAN CORPUSCULAR HEMOGLOBIN 24.9 PG (27.0-34.0); MEAN CORPUSCULAR HGB CONC 30.6 % (32.0-36.0); MEAN PLATELET VOLUME 7.8 FL (7.0-11.0); PLATELET COUNT 131 TH/MM3 (150-450); RED BLOOD COUNT 4.06 MIL/MM3 (4.00-5.30); RED CELL DISTRIBUTION WIDTH 18.1 % (11.6-17.2)
[2017-10-21] MEDS ORDERED: HYOSCYAMINE 0.5 MG/ML AMP IV PUSH ONE (13:30)
[2017-10-21] MEDS ORDERED: LORazepam 2 MG/ML VIAL IV PUSH ONE ×2 (13:30→13:45)
[2017-10-21] MEDS ORDERED: HYDROmorphone HCL PF 2 MG/ML VIAL IV PUSH ONE ×2 (13:30→13:45)
[2017-10-21] MEDS ORDERED: LORazepam 2 MG/ML VIAL IV PUSH PRN ×3 (14:00)
[2017-10-21] MEDS ORDERED: HYDROmorphone HCL PF 2 MG/ML VIAL IV PUSH PRN ×2 (14:00)
[2017-10-21] MEDS ORDERED: ACETAMINOPHEN 650 MG SUPP RECTAL PRN (14:00)
[2017-10-21] MEDS ORDERED: FUROSEMIDE 20 MG/2 ML VIAL IV PUSH PRN (14:00)
[2017-10-21] MEDS ORDERED: BISACODYL 10 MG SUPP RECTAL PRN (14:00)
[2017-10-21] MEDS ORDERED: HYOSCYAMINE 0.5 MG/ML AMP IV PUSH PRN (14:00)
--- NOTE | 2017-10-21 14:41 | HHI.HCPN ---
The patient's has elected to withdraw life support to allow natural . I spoke at length with him again today and also with the patient's brother Pineda (by telephone), and both agree that the patient would not want to be kept alive this way. There is another sister who is reported to be driving here from [place], and the patient's may want to delay withdrawal until after she arrives. Hospice consulted. called at 's request for another visit. Withdrawal orders written, so they will be available whenever the patient's is ready. Jaclyn Hicks MD Oct 21, 2017 14:41
--- NOTE | 2017-10-21 14:53 | HHI.CCPN ---
Subjective Remarks/Hospital Course 10/19: This is a 52-year-old female with a long prior history of stroke, [facility], with chronic sacral decubitus ulcers, chronic indwelling Ruelas. She was evaluated yesterday in the emergency department and found to have a urinary tract infection as well as likely healthcare associated ammonia. She was given IV antibiotics and discharged back [facility] her [facility] facility. She was found today unresponsive in cardiac arrest. ACLS was instituted and ROSC was obtained. She arrived to the emergency department where again a pulse was lost and ACLS was instituted with ROSC again. Post resuscitative efforts, the patient was unresponsive with fixed and dilated pupils. Patient has evidence of multiorgan system dysfunction including a lactate of 7, leukocytosis, shock liver, coagulopathy secondary to shock liver, severe metabolic acidosis with a pH less than 6.9. Conversations were had between the ER physician and the patient's and he would not want her on full life support for very long. He wanted to go home and talk with his family before pursuing comfort measures and withdrawal of care. Over state that he wanted her to be DNR with no escalation of care, no additional procedures, and no additional vasopressors. No additional history is obtainable from the patient due to her clinical condition. Review of systems is unobtainable. 10/20: Remains encephalopathic, orally intubated on mechanical ventilation. 10/21: Remains encephalopathic, orally intubated on mechanical ventilation. Objective Vital Signs Date Time Temp Pulse Resp B/P (MAP) Pulse Ox O2 Delivery O2 Flow Rate FiO2 10/21/17 14:00 93 30 76/47 (57) 100 10/21/17 10:58 40 10/21/17 04:00 99.3 10/19/17 21:52 Ventilator Intake and Output 10/21/17 10/21/17 10/22/17 08:00 16:00 00:00 Intake Total 300 ml Output Total 125 ml Balance 175 ml Result Diagram: 10/21/17 1105 10/21/17 0652 Imaging Last Impressions Head CT 10/19/17 0000 Signed Impressions: Service Date/Time: Thursday, October 19, 2017 21:57 - CONCLUSION: Old left- sided pontine infarct. No acute intracranial findings. Brian Su MD Chest X-Ray 10/19/17 0000 Signed Impressions: Service Date/Time: Thursday, October 19, 2017 19:38 - CONCLUSION: 1. Endotracheal tube and nasogastric tube in place. 2. Moderate sized area of left lower lobe consolidation versus atelectasis. 3. Mild bilateral perihilar opacity suggesting pulmonary vascular congestion. Brian Su MD Objective Remarks GENERAL: Middle-aged female who appears much older than stated age, lying in bed , intubated, sedated, unresponsive, critically ill HEENT: Normocephalic. Atraumatic. Pupils 6 mm, equal, bilateral, nonreactive, fixed.. Mucous membranes are moist NECK: Trachea is midline. There is no JVD. CHEST: Equal chest rise. Full mechanical support. FiO2 100%. CARDIOVASCULAR: Tachycardic rate, regular rhythm. On norepinephrine at 30 mcg/ min. ABDOMEN: Soft, nontender, nondistended. No guarding. MUSCULOSKELETAL: Pulses 2+. No peripheral edema. NEUROLOGICAL: GCS 3. Pupils as above. Negative cough. Negative gag. A/P Assessment and Plan Assessment: This is a 52-year-old female with multiple chronic medical comorbidities including chronic decubitus, and recent ER visit for UTI and HCAP. Now s/p [id number] cardiac arrest with hypoxic-ischemic encephalopathy. Not a candidate for therapeutic hypothermia given her hemodynamic instability and multiorgan system failure. the ER physician had long talks with her about her poor prognosis. He would not want aggressive life-saving measures. he does want us to continue aggressive therapy until his family can have discussions. We all agree on DNR status for her with no escalation of care, including no additional procedures or vasopressors. She remains very critically ill with multi-organ failure. Plan by systems: Neurologic: Hypoxicischemic encephalopathy Prior CVA Fibromyalgia Chronic opiate dependence Avoid long-acting sedatives Frequent neuro checks If her neurologic status improves will use propofol and fentanyl for goal RASS - 2 CT brain 10/19 negative for acute disease, evidence of old infarct Respiratory: Acute hypoxic and hypercarbic respiratory failure Healthcare associated pneumonia COPD Wean FiO2 for goal SPO2 greater than 90% No weaning mechanical ventilation until neurologic status improves Vent bundle Nebs Head of bed at 30 Anabiotic described below Cardiovascular: Cardiac shock Likely distributive shock Out of hospital cardiac arrest Continue norepinephrine for goal map greater than 65. Max of 30 mcg/min. No escalation of care No additional vasopressors per patient and 's wishes Trend lactates Renal: Acute kidney injury Chronic indwelling Ruelas UTI -- Strict I/Os Antibiotics as below Frequent urine output checks Daily BMP FEN/GI: Acute protein calorie malnutrition- severe Shock liver Hyperkalemia Severe metabolic acidosis Lactic acidosis Daily BMP Nothing by mouth Place OG tube to suction Trend LFTs Trend lactates Maintenance IV fluids Heme/ID: Coagulopathy secondary to shock liver Urinary tract infection Healthcare associated pneumonia Vancomycin Cefepime Flagyl Blood cultures Urine culture Sputum culture Trend coags Does not need transfusion triggers at this time Daily CBC Endocrine: Hyperglycemia of critical illness -- SSI, medium scale, every 6 Prophylaxis: GI Prophylaxis Pepcid IV DVT Prophylaxis -- SCDs Subcutaneous heparin Lines: Peripheral IVs Ruelas At the patient's 's request central access / arterial line not placed by admitting bakery helper Critically ill This patient remains critically ill with one or more organ systems which are or may become a threat to life. I have spent in excess of 35 minutes discontinuously in the care and management of this patient. This time is exclusive of procedures, and includes, but is not limited to, evaluation of the patient, review of the medical record, discussions with family, consultants, nursing staff, or respiratory therapy, and documentation in the medical record. At the request of the patient's , the patient will be DNR with no escalation of care, no additional procedures, no additional vasopressors. Consulted palliative care to assist with deciding goals of therapy. Doug Duarte MD Oct 21, 2017 14:53
[2017-10-22] VITALS (8 sets, daily range): BP systolic 57–74; BP diastolic 34–47; PULSE 74–89; RESP 0–18; TEMP 98.3–98.9; O2SAT 89–96
[2017-10-22] MEDS: RESP: ALBUTEROL 2.5 MG/IPRATROPIUM 0.5 MG NEB (SCH) INH ×2 (03:05→07:21)
[2017-10-22 06:19] LABS: HEMATOCRIT 31.8 % (35.0-46.0); HEMOGLOBIN 9.3 GM/DL (11.6-15.3); MEAN CELL VOLUME 85.4 FL (80.0-100.0); MEAN CORPUSCULAR HEMOGLOBIN 25.1 PG (27.0-34.0); MEAN CORPUSCULAR HGB CONC 29.4 % (32.0-36.0); PLATELET COUNT 71 TH/MM3 (150-450); RED BLOOD COUNT 3.73 MIL/MM3 (4.00-5.30); RED CELL DISTRIBUTION WIDTH 18.9 % (11.6-17.2); WHITE BLOOD COUNT 12.5 TH/MM3 (4.0-11.0)
[2017-10-22 06:28] LABS: INTERNATIONAL NORMALIZED RATIO 1.7 RATIO; PROTHROMBIN TIME - PATIENT 17.2 SEC (9.8-11.6)
[2017-10-22 06:53] LABS: ALBUMIN 1.3 GM/DL (3.4-5.0); BICARBONATE 15.8 MEQ/L (21.0-32.0); CREATININE 1.95 MG/DL (0.50-1.00)
[2017-10-22] MEDS: metroNIDAZOLE 500 MG INJ 100 ML IV SCH ×2 (06:55→09:33)
[2017-10-22 06:56] LABS: CALCIUM-PROTEIN CORRECTED 8.1 MG/DL (8.5-10.1); INDIRECT BILIRUBIN 0.4 MG/DL (0.0-0.8); TOTAL BILIRUBIN ADULT 1.4 MG/DL (0.2-1.0); TOTAL PROTEIN 5.1 GM/DL (6.4-8.2)
[2017-10-22] MEDS: CEFEPIME INJ 2,000 MG in SODIUM CHLORIDE 0.9% INJ 100 ML IV SCH (06:56)
[2017-10-22] MEDS: LORazepam 2 MG/ML VIAL IV PUSH SCH ×2 (08:00→10:45)
[2017-10-22] MEDS: HYDROmorphone HCL PF 2 MG/ML VIAL IV PUSH SCH ×3 (08:00→11:01)
[2017-10-22] MEDS: MORPHINE SULFATE 2 MG/ML INJ IV PUSH SCH ×2 (08:00→10:45)
[2017-10-22] MEDS: DOCUSATE SODIUM 50 MG/SENNA 8.6 MG TAB PO SCH (09:00)
[2017-10-22] MEDS: CHLORHEXIDINE 0.12% (ORAL KIT) 15 ML CUP MT SCH (09:31)
[2017-10-22] MEDS: SODIUM CHLOR 0.9% 1000 ML INJ 1,000 ML IV SCH (09:32)
[2017-10-22] MEDS: CHLORHEXIDINE GLUCONATE 2 % 1 PACK (2 CLOTHS) TOP SCH (09:32)
[2017-10-22] MEDS: FAMOTIDINE 20 MG/2 ML VIAL IV PUSH SCH (09:33)
--- NOTE | 2017-10-22 09:43 | HHI.CCPN ---
Subjective Remarks/Hospital Course 10/19: This is a 52-year-old female with a long prior history of stroke, residing in [facility] facility for 3 months, with chronic sacral decubitus ulcers, chronic indwelling Ruelas. She was evaluated yesterday in the emergency department and found to have a urinary tract infection as well as likely healthcare associated ammonia. She was given IV antibiotics and discharged back to her [facility] facility. She was found today unresponsive in cardiac arrest. ACLS was instituted and ROSC was obtained. She arrived to the emergency department where again a pulse was lost and ACLS was instituted with ROSC again. Post resuscitative efforts, the patient was unresponsive with fixed and dilated pupils. Patient has evidence of multiorgan system dysfunction including a lactate of 7, leukocytosis, shock liver, coagulopathy secondary to shock liver, severe metabolic acidosis with a pH less than 6.9. Conversations were had between the ER physician and the patient's and he would not want her on full life support for very long. He wanted to go home and talk with his family before pursuing comfort measures and withdrawal of care. Over state that he wanted her to be DNR with no escalation of care, no additional procedures, and no additional vasopressors. No additional history is obtainable from the patient due to her clinical condition. Review of systems is unobtainable. 10/20: Remains encephalopathic, orally intubated on mechanical ventilation. 10/21: Remains encephalopathic, orally intubated on mechanical ventilation. 10/22: no improvements. family arriving soon. need to transition to full comfort care to prevent suffering. Objective Vital Signs Date Time Temp Pulse Resp B/P (MAP) Pulse Ox O2 Delivery O2 Flow Rate FiO2 10/22/17 07:22 96 40 10/22/17 06:00 83 10/22/17 04:00 98.3 16 62/47 (52) 10/19/17 21:52 Ventilator Intake and Output 10/22/17 10/22/17 10/23/17 08:00 16:00 00:00 Intake Total 4682 ml Output Total 40 ml Balance 4642 ml Result Diagram: 10/22/17 0600 10/22/17 0600 Imaging Last Impressions Head CT 10/19/17 0000 Signed Impressions: Service Date/Time: Thursday, October 19, 2017 21:57 - CONCLUSION: Old left- sided pontine infarct. No acute intracranial findings. Brian Su MD Chest X-Ray 10/19/17 0000 Signed Impressions: Service Date/Time: Thursday, October 19, 2017 19:38 - CONCLUSION: 1. Endotracheal tube and nasogastric tube in place. 2. Moderate sized area of left lower lobe consolidation versus atelectasis. 3. Mild bilateral perihilar opacity suggesting pulmonary vascular congestion. Brian Su MD Objective Remarks GENERAL: Middle-aged female who appears much older than stated age, lying in bed , intubated, sedated, unresponsive, critically ill HEENT: Normocephalic. Atraumatic. Pupils 6 mm, equal, bilateral, nonreactive, fixed.. Mucous membranes are moist NECK: Trachea is midline. There is no JVD. CHEST: Equal chest rise. Full mechanical support. FiO2 40%. CARDIOVASCULAR: Tachycardic rate, regular rhythm. ABDOMEN: Soft, nontender, nondistended. No guarding. MUSCULOSKELETAL: Pulses 2+. No peripheral edema. NEUROLOGICAL: GCS 3. Pupils as above. Negative cough. Negative gag. A/P Assessment and Plan Assessment: This is a 52-year-old female with multiple chronic medical comorbidities including chronic decubitus, and recent ER visit for UTI and HCAP. Now s/p [id number] cardiac arrest with hypoxic-ischemic encephalopathy. Not a candidate for therapeutic hypothermia given her hemodynamic instability and multiorgan system failure. the ER physician had long talks with her about her poor prognosis. He would not want aggressive life-saving measures. he does want us to continue aggressive therapy until his family can have discussions. We all agree on DNR status for her with no escalation of care, including no additional procedures or vasopressors. family arriving today: need to transition to full comfort care to prevent suffering. Plan by systems: Neurologic: Hypoxic-ischemic encephalopathy Prior CVA Fibromyalgia Chronic opiate dependence Avoid long-acting sedatives Frequent neuro checks If her neurologic status improves will use propofol and fentanyl for goal RASS - 2 CT brain 10/19 negative for acute disease, evidence of old infarct Respiratory: Acute hypoxic and hypercarbic respiratory failure Healthcare associated pneumonia COPD Wean FiO2 for goal SPO2 greater than 90% No weaning mechanical ventilation until neurologic status improves Vent bundle Nebs Head of bed at 30 Anabiotic described below Cardiovascular: Cardiac shock Likely distributive shock Out of hospital cardiac arrest Continue norepinephrine for goal map greater than 65. Max of 30 mcg/min. No escalation of care No additional vasopressors per patient and 's wishes Trend lactates Renal: Acute kidney injury Chronic indwelling Ruelas UTI -- Strict I/Os Antibiotics as below Frequent urine output checks Daily BMP FEN/GI: Acute protein calorie malnutrition- severe Shock liver Hyperkalemia Severe metabolic acidosis Lactic acidosis Daily BMP Nothing by mouth Place OG tube to suction Trend LFTs Trend lactates Maintenance IV fluids Heme/ID: Coagulopathy secondary to shock liver Urinary tract infection Healthcare associated pneumonia Vancomycin Cefepime Flagyl Blood cultures Urine culture Sputum culture Trend coags Does not need transfusion triggers at this time Daily CBC Endocrine: Hyperglycemia of critical illness -- SSI, medium scale, every 6 Prophylaxis: GI Prophylaxis Pepcid IV DVT Prophylaxis -- SCDs Subcutaneous heparin Lines: Peripheral IVs Ruelas At the patient's 's request central access / arterial line not placed by admitting optical instruments supervisor Critically ill At the request of the patient's , the patient will be DNR with no escalation of care, no additional procedures, no additional vasopressors. Consulted palliative care to assist with deciding goals of therapy. Wilber Figueroa MD Oct 22, 2017 09:43
[2017-10-22] MEDS ORDERED: VANCOMYCIN 1,000 MG/NS 250 ML IV ONE ×2 (10:00)
[2017-10-22] MEDS: MORPHINE SULFATE 2 MG/ML INJ IV PRN (11:01)
--- NOTE | 2017-10-22 14:41 | HHI.HCPN ---
Reason for visit a. To assist with evaluation and management of symptoms including: Dyspnea , pain b. To assist medical decision maker(s) with: better understanding of current medical conditions; weighing benefits/burdens of medical treatment options; making medical treatment decisions. . Subjective/Interval History INTERVAL NOTE: The patient remains unresponsive off sedation. She has continued to decline overnight, becoming hypotensive, and developing some mottling. The patient's has just now arrived, and he understands that she is imminent, likely to within minutes or hours. He requests that we proceed with withdrawal of life support to allow natural .. . Family/friend interactions The patient's has decided to proceed with withdrawal of life support " so her suffering will be over." . Advance Directives Living Will: Never completed Health Care Surrogate: Never completed Durable Power of Diabetic Educator: Never completed Advance Directive Specifics Significant change in goals: requests withdrawal of life support this morning . Objective Vital Signs Date Time Temp Pulse Resp B/P (MAP) Pulse Ox O2 Delivery O2 Flow Rate FiO2 10/22/17 10:00 74 10/22/17 08:00 98.8 85 0 57/34 (42) 96 10/22/17 08:00 40 10/22/17 08:00 85 10/22/17 07:22 96 40 10/22/17 06:00 83 10/22/17 04:00 84 10/22/17 04:00 98.3 87 16 62/47 (52) 10/22/17 04:00 40 10/22/17 03:06 95 40 10/22/17 02:00 84 10/22/17 02:00 40 10/22/17 00:00 82 10/22/17 00:00 98.3 89 16 74/44 (54) 89 10/22/17 00:00 40 10/22/17 00:00 98.9 89 18 74/44 (54) 95 10/21/17 23:22 98 40 10/21/17 22:00 88 10/21/17 22:00 40 10/21/17 20:00 91 10/21/17 20:00 40 10/21/17 20:00 98.6 92 16 82/47 (59) 92 10/21/17 20:00 98.6 92 24 82/47 (59) 96 10/21/17 19:38 97 40 10/21/17 18:00 89 10/21/17 18:00 89 26 74/45 (55) 98 10/21/17 17:00 93 10/21/17 17:00 93 16 74/42 (53) 97 10/21/17 16:00 99 29 84/49 (61) 99 10/21/17 16:00 99 10/21/17 16:00 40 10/21/17 15:04 100 40 10/21/17 15:00 92 10/21/17 15:00 92 31 85/51 (62) 100 Intake & Output 10/22/17 10/22/17 07:00 19:00 Intake Total 4682 ml Output Total 40 ml Balance 4642 ml Intake IV Total 4682 ml Output Urine Total 40 ml Physical Exam CONSTITUTIONAL/GENERAL: This is a frail, unresponsive, mechanically ventilated patient, in the [facility] in no apparent distress. TUBES/LINES/DRAINS: Endotracheal tube, IV access, Ruelas CARDIOVASCULAR: Regular rate and rhythm without murmurs, gallops, or rubs. No JVD. Peripheral pulses quite diminished. RESPIRATORY/CHEST: Symmetric, unlabored respirations on the ventilator. Scattered rhonchi. GASTROINTESTINAL: Abdomen soft, non-tender, nondistended. No hepato-splenomegaly , or palpable masses. No guarding. Bowel sounds present. GENITOURINARY: Without palpable bladder distension. Ruelas catheter in place. MUSCULOSKELETAL: Her feet are cool, mottling is present. There is obvious muscle wasting in all 4 extremities. NEUROLOGICAL: Unresponsive to touch, voice, or pain PSYCHIATRIC: Unable to assess due to her clinical condition. . Diagnostic Tests Laboratory Laboratory Tests Test 10/19/17 18:55 10/19/17 19:30 10/19/17 20:45 10/19/17 22:35 White Blood Count 11.7 TH/MM3 (4.0-11.0) Red Blood Count 4.34 MIL/MM3 (4.00-5.30) Hemoglobin 10.9 GM/DL (11.6-15.3) Hematocrit 36.8 % (35.0-46.0) Mean Corpuscular Volume 84.9 FL (80.0-100.0) Mean Corpuscular Hemoglobin 25.2 PG (27.0-34.0) Mean Corpuscular Hemoglobin Concent 29.7 % (32.0-36.0) Red Cell Distribution Width 17.9 % (11.6-17.2) Platelet Count 242 TH/MM3 (150-450) Mean Platelet Volume 7.8 FL (7.0-11.0) Neutrophils (%) (Auto) 66.0 % (16.0-70.0) Lymphocytes (%) (Auto) 31.7 % (9.0-44.0) Monocytes (%) (Auto) 1.9 % (0.0-8.0) Eosinophils (%) (Auto) 0.1 % (0.0-4.0) Basophils (%) (Auto) 0.3 % (0.0-2.0) Neutrophils # (Auto) 7.7 TH/MM3 (1.8-7.7) Lymphocytes # (Auto) 3.7 TH/MM3 (1.0-4.8) Monocytes # (Auto) 0.2 TH/MM3 (0-0.9) Eosinophils # (Auto) 0.0 TH/MM3 (0-0.4) Basophils # (Auto) 0.0 TH/MM3 (0-0.2) CBC Comment AUTO DIFF Differential Comment AUTO DIFF CONFIRMED Platelet Estimate NORMAL (NORMAL) Platelet Morphology Comment NORMAL (NORMAL) Ovalocytes 1+ (NORMAL) Prothrombin Time 12.0 SEC (9.8-11.6) Prothromb Time International Ratio 1.2 RATIO Blood Urea Nitrogen 25 MG/DL (7-18) Creatinine 0.92 MG/DL (0.50-1.00) Random Glucose 229 MG/DL (74-106) Total Protein 6.1 GM/DL (6.4-8.2) Albumin 1.7 GM/DL (3.4-5.0) Calcium Level 8.8 MG/DL (8.5-10.1) Alkaline Phosphatase 117 U/L (45-117) Aspartate Amino Transf (AST/SGOT) 687 U/L (15-37) Alanine Aminotransferase (ALT/SGPT) 291 U/L (10-53) Total Bilirubin 0.4 MG/DL (0.2-1.0) Sodium Level 136 MEQ/L (136-145) Potassium Level 6.1 MEQ/L (3.5-5.1) Chloride Level 101 MEQ/L (98-107) Carbon Dioxide Level 20.6 MEQ/L (21.0-32.0) Anion Gap 14 MEQ/L (5-15) Estimat Glomerular Filtration Rate 64 ML/MIN (>89) Blood Gas Puncture Site LT FEMORAL Blood Gas Patient Temperature 98.6 Blood Gas HCO3 16 mmol/L (22-26) Blood Gas Base Excess -14.5 mmol/L (-2-2) Blood Gas Oxygen Saturation 98 % (90-100) Arterial Blood pH 6.94 (7.380-7.420) Arterial Blood Partial Pressure CO2 79 mmHg (38-42) Arterial Blood Partial Pressure O2 285 mmHG (61-120) Arterial Blood Oxygen Content 12.7 Vol % (12.0-20.0) Arterial Blood Carboxyhemoglobin 0.2 % (0-4) Arterial Blood Methemoglobin 0.6 % (0-2) Blood Gas Hemoglobin 8.7 G/DL (12.0-16.0) Oxygen Delivery Device VENTILATOR Blood Gas Ventilator Setting Blood Gas Inspired Oxygen 100 % Lactic Acid Level 7.1 mmol/L (0.4-2.0) Nasal Screen MRSA (PCR) MRSA DETECTED (NOT DETECT) Test 10/20/17 00:23 10/20/17 03:17 10/20/17 05:37 10/21/17 06:52 Lactic Acid Level 6.8 mmol/L (0.4-2.0) 5.1 mmol/L (0.4-2.0) 4.2 mmol/L (0.4-2.0) White Blood Count 19.1 TH/MM3 (4.0-11.0) Red Blood Count 4.62 MIL/MM3 (4.00-5.30) Hemoglobin 11.8 GM/DL (11.6-15.3) Hematocrit 37.4 % (35.0-46.0) Mean Corpuscular Volume 80.9 FL (80.0-100.0) Mean Corpuscular Hemoglobin 25.5 PG (27.0-34.0) Mean Corpuscular Hemoglobin Concent 31.5 % (32.0-36.0) Red Cell Distribution Width 17.6 % (11.6-17.2) Platelet Count 243 TH/MM3 (150-450) Mean Platelet Volume 7.6 FL (7.0-11.0) Prothrombin Time 19.4 SEC (9.8-11.6) 20.7 SEC (9.8-11.6) Prothromb Time International Ratio 1.9 RATIO 2.0 RATIO Activated Partial Thromboplast Time 32.1 SEC (24.3-30.1) 42.1 SEC (24.3-30.1) Blood Urea Nitrogen 34 MG/DL (7-18) 59 MG/DL (7-18) Creatinine 0.70 MG/DL (0.50-1.00) 1.28 MG/DL (0.50-1.00) Random Glucose 112 MG/DL (74-106) 48 MG/DL (74-106) Total Protein 6.6 GM/DL (6.4-8.2) 5.6 GM/DL (6.4-8.2) Albumin 2.0 GM/DL (3.4-5.0) 1.5 GM/DL (3.4-5.0) Calcium Level 8.2 MG/DL (8.5-10.1) 7.5 MG/DL (8.5-10.1) Alkaline Phosphatase 297 U/L (45-117) 338 U/L (45-117) Aspartate Amino Transf (AST/SGOT) 3548 U/L (15-37) 2437 U/L (15-37) Alanine Aminotransferase (ALT/SGPT) 1389 U/L (10-53) 1269 U/L (10-53) Total Bilirubin 1.5 MG/DL (0.2-1.0) 1.7 MG/DL (0.2-1.0) Direct Bilirubin 1.2 MG/DL (0.0-0.2) 1.2 MG/DL (0.0-0.2) Sodium Level 142 MEQ/L (136-145) 144 MEQ/L (136-145) Potassium Level 3.8 MEQ/L (3.5-5.1) 4.5 MEQ/L (3.5-5.1) Chloride Level 111 MEQ/L (98-107) 117 MEQ/L (98-107) Carbon Dioxide Level 19.8 MEQ/L (21.0-32.0) 16.4 MEQ/L (21.0-32.0) Anion Gap 11 MEQ/L (5-15) 11 MEQ/L (5-15) Indirect Bilirubin 0.3 MG/DL (0.0-0.8) 0.5 MG/DL (0.0-0.8) Estimat Glomerular Filtration Rate 43 ML/MIN (>89) Test 10/21/17 11:05 10/22/17 06:00 White Blood Count 14.0 TH/MM3 (4.0-11.0) 12.5 TH/MM3 (4.0-11.0) Red Blood Count 4.06 MIL/MM3 (4.00-5.30) 3.73 MIL/MM3 (4.00-5.30) Hemoglobin 10.1 GM/DL (11.6-15.3) 9.3 GM/DL (11.6-15.3) Hematocrit 33.0 % (35.0-46.0) 31.8 % (35.0-46.0) Mean Corpuscular Volume 81.3 FL (80.0-100.0) 85.4 FL (80.0-100.0) Mean Corpuscular Hemoglobin 24.9 PG (27.0-34.0) 25.1 PG (27.0-34.0) Mean Corpuscular Hemoglobin Concent 30.6 % (32.0-36.0) 29.4 % (32.0-36.0) Red Cell Distribution Width 18.1 % (11.6-17.2) 18.9 % (11.6-17.2) Platelet Count 131 TH/MM3 (150-450) 71 TH/MM3 (150-450) Mean Platelet Volume 7.8 FL (7.0-11.0) 8.0 FL (7.0-11.0) Prothrombin Time 17.2 SEC (9.8-11.6) Prothromb Time International Ratio 1.7 RATIO Activated Partial Thromboplast Time 50.4 SEC (24.3-30.1) Blood Urea Nitrogen 73 MG/DL (7-18) Creatinine 1.95 MG/DL (0.50-1.00) Random Glucose 55 MG/DL (74-106) Total Protein 5.1 GM/DL (6.4-8.2) Albumin 1.3 GM/DL (3.4-5.0) Calcium Level 7.0 MG/DL (8.5-10.1) Alkaline Phosphatase 323 U/L (45-117) Aspartate Amino Transf (AST/SGOT) 1538 U/L (15-37) Alanine Aminotransferase (ALT/SGPT) 930 U/L (10-53) Total Bilirubin 1.4 MG/DL (0.2-1.0) Direct Bilirubin 1.0 MG/DL (0.0-0.2) Sodium Level 145 MEQ/L (136-145) Potassium Level 5.6 MEQ/L (3.5-5.1) Chloride Level 120 MEQ/L (98-107) Carbon Dioxide Level 15.8 MEQ/L (21.0-32.0) Anion Gap 9 MEQ/L (5-15) Estimat Glomerular Filtration Rate 27 ML/MIN (>89) Protein Corrected Calcium 8.1 MG/DL (8.5-10.1) Indirect Bilirubin 0.4 MG/DL (0.0-0.8) Random Vancomycin Level 11.0 COMMENT Result Diagram: 10/22/17 0600 10/22/17 0600 Procedures INTUBATION 10/19/17 . Assessment and Plan Disease Oriented Problem List: (1) anoxic encephalopathy (2) cardiac arrest, resuscitation with ROSC (3) "shock liver" (4) respiratory failure, mechanical ventilation (5) anemia, recent transfusions (6) history of CVA 2, right hemiparesis (7) CAD, history of SD (8) chronic pain, chronic opiate use (9) decubitus ulcer, sacrum (10) history of lupus (11) history of porphyria (12) history of fibromyalgia (13) history of depression (14) history of colitis Symptom Scale: (1) pain 0-10 Scale: Unable to quantify (has been on opiates for years) (2) encephalopathy 0-10 Scale: Unable to quantify (appears to be quite profound) (3) dyspnea 0-10 Scale: Unable to quantify Pertinent Non-Medical Issues Psychosocial: 26 years, former cocaine abuser but sober for years, 3 children taken from her while she was in her 20s, on long-term disability for chronic pain. 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 is decision making proxy. Ethical issues impacting care: None . Important Contacts : Guanaco Marinelli" Cristel [phone] . Prognosis The patient's prognosis is quite poor. She had been declining steadily in recent months with profound muscle wasting/cachexia, skin breakdown, infections , and now she has suffered a cardiac arrest resulting in significant anoxic brain injury. . Code Status: No Code Plan * DO NOT RESUSCITATE * DECISION-MAKING: The patient lacks capacity for decision-making and she will not regain that capacity. Her is the decision making proxy. * GOALS: The patient's requested withdrawal of life support to allow natural today. Anticipatory guidance provided. * SYMPTOMS: Medication orders written for the withdrawal of life support in the maintenance of satisfactory comfort. * Palliative Care will continue to follow the patient during this hospitalization. . Time Spent Total Floor Time (mins): 41 Face to Face Time (mins): 11 >50% Counseling/Coord of Care: Yes (d/w Dr. Figueroa and with RN) Attestation To help prompt me to consider important information that might be impacting today's encounter and assessment, information from prior notes written by myself or my colleagues may have been "brought forward" into today's note. My signature on this note, however, is an attestation that I personally performed the exam, history, and/or decision-making noted today, and, unless otherwise indicated, the interactions with patient, family, and staff as well as the review of records all occurred today. I also attest that the listed assessment and stated plan reflect my best clinical judgment today based on the combination of historical information, prior notes, and today's exam/ interactions. When time spent is documented, it refers only to time spent today by the signer, or if indicated, combined time spent today by collaborating physician/nurse practitioner. Jaclyn Wick MD Oct 22, 2017 14:41
[2017-10-22] MEDS ORDERED: PHARMACY ORDERED LAB ONE (21:45)
== END 2017-10-22 11:25 | disposition expired | DRG 296 ==
LOC: NEPC 18:51 → NEDA 20:58 → MERGE 20:58 → HIME 22:05
PROVIDERS: ADMIT Internal Medicine Critical Care Medicine; ATTEND Internal Medicine Critical Care Medicine
PROC: 5A1945Z Respiratory Ventilation, 24-96 Consecutive Hours (ICD-10-PCS; principal; 2017-10-19)
PROC: 5A12012 Performance of Cardiac Output, Single, Manual (ICD-10-PCS; 2017-10-19)
DX: I46.9 Cardiac arrest, cause unspecified (principal); J18.9 Pneumonia, unspecified organism; K72.00 Acute and subacute hepatic failure without coma; R57.8 Other shock; G93.1 Anoxic brain damage, not elsewhere classified; E43 Unspecified severe protein-calorie malnutrition; J96.01 Acute respiratory failure with hypoxia; J96.02 Acute respiratory failure with hypercapnia; J44.0 Chronic obstructive pulmonary disease with (acute) lower respiratory infection; D68.4 Acquired coagulation factor deficiency; E87.2 Acidosis; I69.351 Hemiplegia and hemiparesis following cerebral infarction affecting right dominant side; N39.0 Urinary tract infection, site not specified; N17.9 Acute kidney failure, unspecified; F11.20 Opioid dependence, uncomplicated; I10 Essential (primary) hypertension; I25.10 Atherosclerotic heart disease of native coronary artery without angina pectoris; Z66 Do not resuscitate; Z51.5 Encounter for palliative care; Y95 Nosocomial condition; K21.9 Gastro-esophageal reflux disease without esophagitis; G89.29 Other chronic pain; M79.7 Fibromyalgia; E87.5 Hyperkalemia; L89.159 Pressure ulcer of sacral region, unspecified stage; E16.2 Hypoglycemia, unspecified; R73.9 Hyperglycemia, unspecified; D64.9 Anemia, unspecified; E78.00 Pure hypercholesterolemia, unspecified; I25.2 Old myocardial infarction; F17.210 Nicotine dependence, cigarettes, uncomplicated; Z74.01 Bed confinement status; F32.9 Major depressive disorder, single episode, unspecified; F41.9 Anxiety disorder, unspecified; M62.50 Muscle wasting and atrophy, not elsewhere classified, unspecified site; L89.019 Pressure ulcer of right elbow, unspecified stage; M54.2 Cervicalgia
CPT/HCPCS: 36600; 70450; 71010; 80048; 80053; 80076; 80202; 82805; 83605; 84155; 85025; 85027; 85610; 85730; 87641; 92950; 93005; 94002; 94003; 94640; 94664; 96365; 96375; J0692; J1170; J1644; J1980; J2060; J2270; J3370; J7030; J7050